=== PATIENT | male | born 1935 | race Caucasian/White ===

== ENCOUNTER 2017-04-05 15:38 | Inpatient (IN) | payer MEDICARE ==
[2017-04-05 16:15] LABS: CH 29.6; CHCM 33.3; HCT 50.3 % (39.0-53.0); HDW 2.49; MCH 30.1 pg (25.0-35.0); MCHC 33.7 g/dL (31.0-37.0); MCV 89.4 fL (80.0-100.0); Mean Platelet Volume 8.8; RBC 5.63 m/uL (4.30-5.90); RDW 13.8 % (11.5-15.5); WBC (Perox) 27.49
[2017-04-05 16:17] LABS: WBC 26.1 k/uL (3.8-10.6)
[2017-04-05 16:19] LABS: ALT 54 U/L (21-72); AST 30 U/L (17-59); Alkaline Phosphatase 138 U/L (38-126); Anion Gap 12 mmol/L; Blood Urea Nitrogen 31 mg/dL (9-20); Calcium 9.8 mg/dL (8.4-10.2); Carbon Dioxide 25 mmol/L (22-30); Chloride 102 mmol/L (98-107); Glucose 125 mg/dL (74-99); Non-African American GFR(MDRD) 53 (>60 ml/min/1.73 sqM); Potassium 4.7 mmol/L (3.5-5.1); Sodium 139 mmol/L (137-145); Total Protein 7.2 g/dL (6.3-8.2)
[2017-04-05 16:28] LABS: Prothrombin Time 10.2 sec (9.0-12.0)
[2017-04-05 16:30] LABS: Add Differential Manual Differential; Creatine Kinase 27 U/L (55-170)
[2017-04-05 16:31] LABS: Nucleated Red Blood Cells 0 /100 WBC (0-0); Polychromasia Present; Total Cells Counted 100
[2017-04-05 16:33] LABS: Partial Thromboplastin Time 21.6 sec (22.0-30.0)
--- NOTE | 2017-04-05 16:34 | ED ---
Weakness HPI - General Chief complaint: Weakness Stated complaint: Fall Time Seen by Provider: 04/05/17 15:38 Source: patient, EMS, RN notes reviewed, old records reviewed Mode of arrival: EMS - History of Present Illness Initial comments: This 82-year-old male who was brought in for evaluation for possible stroke he started having onset of symptoms at 1 AM this morning of left-sided weakness and some confusion. He. Did have a history of TIA or CVA in the past. He purely was on a commode and did fall he was helped to a chair by family members and was unable to get up by himself. Per paramedics he does demonstrate confusion some left upper lower extremity weakness mostly left lower extremity. No fevers chills nausea vomiting sweats no evidence of any physical trauma on examination. MD Complaint: generalized weakness - Related Data Home Medications Medication Instructions Recorded Confirmed Bisoprolol-Hctz 10-6.25 mg [Ziac 1 tab PO DAILY 01/25/14 04/05/17 10-6.25 MG] Clopidogrel [Plavix] 75 mg PO DAILY 01/25/14 04/05/17 amLODIPine BESYLATE/BENAZEPRIL 1 cap PO DAILY 01/25/14 04/05/17 [Lotrel 5-20 mg Capsule] Ranitidine HCl [Zantac] 150 mg PO DAILY 04/05/17 04/05/17 predniSONE 20 mg PO BID PRN 04/05/17 04/05/17 Allergies Allergy/AdvReac Type Severity Reaction Status Date / Time No Known Allergies Allergy Verified 04/05/17 16:27 Review of Systems ROS Statement: Those systems with pertinent positive or pertinent negative responses have been documented in the HPI. ROS Other: All systems not noted in ROS Statement are negative. Past Medical History Past Medical History: CVA/TIA, GERD/Reflux, Hypertension, Osteoarthritis (OA), Skin Disorder Additional Past Medical History / Comment(s): SOB with activity History of Any Multi-Drug Resistant Organisms: None Reported Additional Past Surgical History / Comment(s): hemorrhoidectomy, bilateral rotator cuff Past Anesthesia/Blood Transfusion Reactions: No Reported Reaction Past Psychological History: No Psychological Hx Reported Smoking Status: Former smoker General Exam - General Exam Comments Initial Comments: Is a well-developed well-nourished awake alert but confused male General appearance: alert, in no apparent distress Head exam: Present: atraumatic, normocephalic, normal inspection Eye exam: Present: normal appearance, PERRL, EOMI. Absent: scleral icterus, conjunctival injection, periorbital swelling ENT exam: Present: mucous membranes dry Neck exam: Present: normal inspection. Absent: tenderness, meningismus, lymphadenopathy Respiratory exam: Present: decreased breath sounds. Absent: respiratory distress, wheezes, rales, rhonchi, stridor Cardiovascular Exam: Present: regular rate, normal rhythm, normal heart sounds. Absent: systolic murmur, diastolic murmur, rubs, gallop, clicks GI/Abdominal exam: Present: soft, normal bowel sounds. Absent: distended, tenderness, guarding, rebound, rigid Extremities exam: Present: normal inspection, normal capillary refill. Absent: tenderness, pedal edema, joint swelling, calf tenderness Back exam: Present: normal inspection Neurological exam: Present: alert, altered, CN II-XII intact, motor sensory deficit Psychiatric exam: Present: flat affect Skin exam: Present: warm, dry, intact, normal color. Absent: rash Course Vital Signs 04/05/17 04/05/17 04/05/17 15:40 15:45 16:00 Temperature 101.0 F H Pulse Rate 96 100 94 Respiratory 19 20 19 Rate Blood Pressure 163/98 163/98 O2 Sat by Pulse 94 L 94 L 94 L Oximetry 04/05/17 04/05/17 04/05/17 16:15 16:30 16:45 Temperature Pulse Rate 90 88 86 Respiratory 20 20 17 Rate Blood Pressure 144/82 155/84 148/89 O2 Sat by Pulse 96 96 Oximetry 04/05/17 04/05/17 04/05/17 17:17 17:37 18:20 Temperature 99.4 F 98.7 F Pulse Rate 82 88 81 Respiratory 18 19 Rate Blood Pressure 148/85 155/84 152/75 O2 Sat by Pulse 96 95 Oximetry - Reevaluation(s) Reevaluation #1: 04/05/17 18:57 Reevaluation patient reveals no change. I did a long discussion with the patient's family regarding the findings patient is awake and alert. He's had no cough no dysuria the initial history was confirmed by family members. The symptoms this started around 1 AM this morning. EKG Findings - EKG Results: EKG: interpreted by ANGELICA, sinus rhythm (Sinus rhythm rate of 98 MD interval 150 to QRS 104 QT since QTC of 380/45 and complete right bundle-branch block pattern ) Medical Decision Making - Medical Decision Making I did discuss findings with the patient family. Patient will be admitted feeling place an IV antibiotics neurology consultation. I did discuss the case with the hospitalist Dr. Anna patient will be admitted with neurological consultation will be started on antibiotics additionally. - Lab Data Result diagrams: 04/05/17 15:55 04/05/17 15:55 Lab Results 04/05/17 04/05/17 04/05/17 Range/Units 15:55 15:55 15:55 WBC 26.1 H* (3.8-10.6) k/uL RBC 5.63 (4.30-5.90) m/uL Hgb 17.0 (13.0-17.5) gm/dL Hct 50.3 (39.0-53.0) % MCV 89.4 (80.0-100.0) fL MCH 30.1 (25.0-35.0) pg MCHC 33.7 (31.0-37.0) g/dL RDW 13.8 (11.5-15.5) % Plt Count 385 (150-450) k/uL Neutrophils % (Manual) 78.0 % Lymphocytes % (Manual) 4.0 % Monocytes % (Manual) 17.0 % Eosinophils % (Manual) 1.0 % Neutrophils # (Manual) 20.4 H (1.3-7.7) k/uL Lymphocytes # (Manual) 1.0 (1.0-4.8) k/uL Monocytes # (Manual) 4.4 H (0-1.0) k/uL Eosinophils # (Manual) 0.3 (0-0.7) k/uL Nucleated RBCs 0 (0-0) /100 WBC Polychromasia Present PT (9.0-12.0) sec INR (<1.2) APTT (22.0-30.0) sec Sodium 139 (137-145) mmol/L Potassium 4.7 (3.5-5.1) mmol/L Chloride 102 (98-107) mmol/L Carbon Dioxide 25 (22-30) mmol/L Anion Gap 12 mmol/L BUN 31 H (9-20) mg/dL Creatinine 1.30 H (0.66-1.25) mg/dL Est GFR (MDRD) Af Amer >60 (>60 ml/min/1.73 sqM) Est GFR (MDRD) Non-Af 53 (>60 ml/min/1.73 sqM) Glucose 125 H (74-99) mg/dL Calcium 9.8 (8.4-10.2) mg/dL Magnesium 2.0 (1.6-2.3) mg/dL Total Bilirubin 1.0 (0.2-1.3) mg/dL AST 30 (17-59) U/L ALT 54 (21-72) U/L Alkaline Phosphatase 138 H (38-126) U/L Total Creatine Kinase 27 L (55-170) U/L CK-MB (CK-2) 0.8 (0.0-2.4) ng/mL CK-MB (CK-2) Rel Index 3.0 Troponin I <0.012 (0.000-0.034) ng/mL Total Protein 7.2 (6.3-8.2) g/dL Albumin 4.3 (3.5-5.0) g/dL 04/05/17 Range/Units 15:55 WBC (3.8-10.6) k/uL RBC (4.30-5.90) m/uL Hgb (13.0-17.5) gm/dL Hct (39.0-53.0) % MCV (80.0-100.0) fL MCH (25.0-35.0) pg MCHC (31.0-37.0) g/dL RDW (11.5-15.5) % Plt Count (150-450) k/uL Neutrophils % (Manual) % Lymphocytes % (Manual) % Monocytes % (Manual) % Eosinophils % (Manual) % Neutrophils # (Manual) (1.3-7.7) k/uL Lymphocytes # (Manual) (1.0-4.8) k/uL Monocytes # (Manual) (0-1.0) k/uL Eosinophils # (Manual) (0-0.7) k/uL Nucleated RBCs (0-0) /100 WBC Polychromasia PT 10.2 (9.0-12.0) sec INR 1.0 (<1.2) APTT 21.6 L (22.0-30.0) sec Sodium (137-145) mmol/L Potassium (3.5-5.1) mmol/L Chloride (98-107) mmol/L Carbon Dioxide (22-30) mmol/L Anion Gap mmol/L BUN (9-20) mg/dL Creatinine (0.66-1.25) mg/dL Est GFR (MDRD) Af Amer (>60 ml/min/1.73 sqM) Est GFR (MDRD) Non-Af (>60 ml/min/1.73 sqM) Glucose (74-99) mg/dL Calcium (8.4-10.2) mg/dL Magnesium (1.6-2.3) mg/dL Total Bilirubin (0.2-1.3) mg/dL AST (17-59) U/L ALT (21-72) U/L Alkaline Phosphatase (38-126) U/L Total Creatine Kinase (55-170) U/L CK-MB (CK-2) (0.0-2.4) ng/mL CK-MB (CK-2) Rel Index Troponin I (0.000-0.034) ng/mL Total Protein (6.3-8.2) g/dL Albumin (3.5-5.0) g/dL - Radiology Data Radiology results: report reviewed (Review the imaging CAT scan shows no acute findings x-ray shows evidence of atelectasis versus infiltrate), image reviewed Critical Care Time Critical Care Time: Yes Critical Care Time: Critical care time includes 35 minutes which includes monitoring the EMS run and discussed with her. Review of old charting. History physical lab and x- rays on the patient. Review of findings with the patient family admission orders discussed with the hospitalist documentation of the above Disposition Clinical Impression: CVA (cerebral vascular accident), Pneumonia, Febrile illness Disposition: ADMITTED IP TO THIS [facility] Condition: Stable Referrals: Bryson Anderson MD [Primary Care Provider] - 1-2 days
[2017-04-05 16:43] LABS: Creatine Kinase MB 0.8 ng/mL (0.0-2.4); Troponin I <0.012 ng/mL (0.000-0.034)
--- NOTE | 2017-04-05 16:45 | XR ---
EXAMINATION TYPE: XR chest 2V DATE OF EXAM: 04/05/2017 COMPARISON: 08/17/2012 TECHNIQUE: PA and lateral views submitted. HISTORY: Altered mental status FINDINGS: No pneumothorax. Hypertrophic change of the spine seen. The heart is enlarged and there is arthropath y of the right shoulder. Subsegmental changes at both lung bases. IMPRESSION: 1. Cardiomegaly with basilar atelectasis favored over infiltrate. Correlate clinically..
--- NOTE | 2017-04-05 17:28 | CT ---
EXAMINATION TYPE: CT brain wo con DATE OF EXAM: 04/05/2017 COMPARISON: 08/17/2012 HISTORY: Fall yesterday. CT DLP: 1165.00 mGycm Automated exposure control for dose reduction was used. FINDINGS: There is no care, hemorrhage, mass, or mass effect or definite new attenuation defect. The previously seen 4 cm focal encephalomalacia in the upper right cerebellar hemisphere is redemonst rated, consistent with prior infarction in the vascular territory of the right superior cerebellar ar jamia. Skeletal structures and mastoid sinus air cells and middle ear cavities are negative. Visualized para nasal sinuses are clear. IMPRESSION: NO ACUTE PROCESS.
[2017-04-05 19:00] LABS: Appearance,Urine Clear (Clear); Bacteria,Urine Rare /hpf; Bilirubin,Urine Negative (Negative); Glucose,Urine (UA) Negative (Negative); Ketones,Urine Negative (Negative); Leukocyte Esterase,Urine Negative (Negative); Mucus,Urine Rare /hpf; Nitrite,Urine Negative (Negative); PH, Urine 5.5 (5.0-8.0); Particle Count 1376; Protein,Urine 1+ (Negative); RBC,Urine <1 /hpf (0-5); Specific Gravity,Urine 1.016 (1.001-1.035); Squamous Epithelial Cell,Urine <1 /hpf (0-4); UA Billing (MACRO vs. MICRO) MICRO; Urobilinogen,Urine <2.0 mg/dL (<2.0); WBC,Urine 2 /hpf (0-5)
[2017-04-05] MEDS ORDERED: AZITHROMYCIN 500 MG in SODIUM CHLORIDE 0.9% 250 ML IVPB STA (19:03)
[2017-04-05] MEDS ORDERED: predniSONE 20 MG TAB PO PRN (19:03)
[2017-04-05] MEDS: ASPIRIN 325 MG TAB PO SCH (19:45)
[2017-04-05] MEDS ORDERED: FAMOTIDINE 20 MG TAB PO SCH (21:00)
--- NOTE | 2017-04-05 22:15 | US ---
EXAMINATION TYPE: US carotid duplex BILAT DATE OF EXAM: 04/05/2017 COMPARISON: NONE CLINICAL HISTORY: Stenosis. fall yesterday, unable to walk today, h/o TIA and stroke in 2009, patient scanned in ER EXAM MEASUREMENTS: RIGHT: Peak Systolic Velocity (PSV) cm/sec ----- Right CCA: 43.5 ----- Right ICA: 60.1 ----- Right ECA: 110.4 ICA/CCA ratio: 1.4 RIGHT: End Diastole cm/sec ----- Right CCA: 8.6 ----- Right ICA: 13.0 ----- Right ECA: 8.2 LEFT: Peak Systolic Velocity (PSV) cm/sec ----- Left CCA: 75.5 ----- Left ICA: 44.2 ----- Left ECA: 82.8 ICA/CCA ratio: 0.6 LEFT: End Diastole cm/sec ----- Left CCA: 14.2 ----- Left ICA: 13.5 ----- Left ECA: 8.0 VERTEBRALS (direction of flow): Right Vertebral: Antegrade Left Vertebral: Antegrade IMPRESSION: 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
[2017-04-05] MEDS: SODIUM CHLORIDE 0.9% 1,000 ML IV SCH (23:36)
[2017-04-06] MEDS: SODIUM CHLORIDE 0.9% 1,000 ML IV SCH ×2 (06:19→18:17)
[2017-04-06 07:28] LABS: Cholesterol 148 mg/dL (<200); HDL Cholesterol 63 mg/dL (40-60); Triglycerides 59 mg/dL (<150)
[2017-04-06] MEDS: LISINOPRIL 20 MG TAB PO SCH (08:03)
[2017-04-06] MEDS: BISOPROLOL-HCTZ 10-6.25 MG 1 EACH TAB PO SCH (08:03)
[2017-04-06] MEDS: FAMOTIDINE 20 MG TAB PO SCH (08:03)
[2017-04-06] MEDS: ASPIRIN 325 MG TAB PO SCH (08:03)
[2017-04-06] MEDS: CLOPIDOGREL 75 MG TAB PO SCH (08:03)
[2017-04-06] MEDS: amLODIPine 5 MG TAB PO SCH (08:04)
--- NOTE | 2017-04-06 12:39 | XR ---
EXAMINATION TYPE: XR Hip Complete LT DATE OF EXAM: 04/06/2017 CLINICAL HISTORY: Increasing left hip pain. Recent falls per order. TECHNIQUE: AP and frogleg views of the left hip are attempted. COMPARISON: None. FINDINGS: There is acute displaced subcapital fracture left proximal femur. Slight impaction of dist al fracture fragment is seen. There is mild to moderate axial joint space loss without joint dislocat ion. Osseous structures are somewhat demineralized. Vascular calcification left distal groin region i s seen.. IMPRESSION: There is age indeterminate but suspected acute subcapital fracture left proximal femur. (Initial encounter closed type post traumatic fracture) Results of the study communicated to patient's nurse Yesica via telephone at time of dictation.
--- NOTE | 2017-04-06 12:44 | US ---
EXAMINATION TYPE: US venous doppler duplex LE LT DATE OF EXAM: 04/06/2017 12:31 PM COMPARISON: Left leg ultrasound August 25, 2013 CLINICAL HISTORY: Unilateral swelling. Left leg swelling SIDE PERFORMED: Left TECHNIQUE: The lower extremity deep venous system is examined utilizing real time linear array sonog kayleigh with graded compression, doppler sonography and color-flow sonography. VESSELS IMAGED: External Iliac Vein (EIV) Common Femoral Vein Deep Femoral Vein Greater Saphenous Vein * Femoral Vein Popliteal Vein Small Saphenous Vein * Proximal Calf Veins (* superficial vessels) Left Leg: Negative for DVT Grayscale, color doppler, spectral doppler imaging performed of the deep veins of the left lower ext remity. There is normal flow, compressibility, vascular waveforms of the left lower extremity. IMPRESSION: No ultrasound evidence for acute DVT in the left lower extremity.
--- NOTE | 2017-04-06 16:49 | P.CNOR ---
History of Present Illness - HPI Consult date: 04/06/17 History of present illness: This is an 82-year-old male who is admitted for CVA. Orthopedics is consulted to evaluate left hip fracture. Patient is a poor historian and unable to answer questions regarding his injury. No family is present in the room. According to the ER note he had a fall this morning after being put on a commode and had to be helped up to a chair by his family. Patient also developed left-sided weakness early this morning. Patient was brought to the via EMS. Patient complains of pain to the left hip. Patient does not appear to have any ankle pain, neck pain or upper extremity pain. Patient states that he still has sensation to bilateral lower extremities, however patient does seem confused. Review of Systems See HPI. 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, hearing loss, and memory impairment, very dry skin History of Any Multi-Drug Resistant Organisms: None Reported Additional Past Surgical History / Comment(s): hemorrhoidectomy, bilateral rotator cuff Past Anesthesia/Blood Transfusion Reactions: No Reported Reaction Past Psychological History: No Psychological Hx Reported Smoking Status: Former smoker - Past Family History Sister(s) Family Medical History: CVA/TIA Medications and Allergies Home Medications Medication Instructions Recorded Confirmed Type Bisoprolol-Hctz 10-6.25 mg [Ziac 1 tab PO DAILY 01/25/14 04/05/17 History 10-6.25 MG] Clopidogrel [Plavix] 75 mg PO DAILY 01/25/14 04/05/17 History amLODIPine BESYLATE/BENAZEPRIL 1 cap PO DAILY 01/25/14 04/05/17 History [Lotrel 5-20 mg Capsule] Ranitidine HCl [Zantac] 150 mg PO DAILY 04/05/17 04/05/17 History predniSONE 20 mg PO BID PRN 04/05/17 04/05/17 History Allergies Allergy/AdvReac Type Severity Reaction Status Date / Time No Known Allergies Allergy Verified 04/05/17 16:27 Physical Examination Patient is in no acute distress. Patient is alert and oriented 1. Patient is able to state his name. On inspection the left lower extremity is shortened and externally rotated. There is tenderness to palpation over the left hip. There is some mild tenderness in the area of the left knee as well, but no swelling or ecchymosis. There is a small abrasion to the left knee. There is no apparent tenderness of the left ankle or foot. Patient has good foot and ankle motion. Dorsalis pedis pulses are 1+ bilaterally. There is 1+ pitting edema to the left lower extremity. Calf is soft and nontender. Sensation appears to be intact. There is no apparent tenderness to palpation of the cervical midline, bilateral shoulders or bilateral upper extremities. No tenderness to palpation of the right lower extremity. Results X-rays of the left hip are reviewed showing acute displaced subcapital fracture of the proximal femur. X-rays of the left knee are pending. - Labs Labs: Abnormal Lab Results - Last 24 Hours (Table) 04/05/17 04/05/17 04/06/17 Range/Units 15:55 18:45 06:11 APTT 21.6 L (22.0-30.0) sec HDL Cholesterol 63 H (40-60) mg/dL Urine Protein 1+ H (Negative) Urine Bacteria Rare H (None) /hpf Hyaline Casts 5 H (0-2) /lpf Urine Mucus Rare H (None) /hpf H & H 04/05/17 Range/Units 15:55 Hgb 17.0 (13.0-17.5) gm/dL Hct 50.3 (39.0-53.0) % Coagulation 04/05/17 Range/Units 15:55 INR 1.0 (<1.2) Result Diagrams: 04/05/17 15:55 04/05/17 15:55 Assessment and Plan (1) Closed left hip fracture Status: Acute Plan: #1. Continue pain control and nonweightbearing status. #2. Obtain consent for possible surgical intervention on Saturday, pending medical clearance. #3. Will continue to follow the patient closely.
--- NOTE | 2017-04-06 17:34 | XR ---
EXAMINATION TYPE: XR knee complete LT DATE OF EXAM: 04/06/2017 CLINICAL HISTORY: Left knee pain TECHNIQUE: Portable Three views of the left knee are obtained. COMPARISON: None. FINDINGS: There is no acute fracture/dislocation evident in left knee. Mild joint space loss patello femoral compartment is seen. Osseous structures are demineralized. Prominent posterior vascular calci fication is noted. IMPRESSION: There is demineralization with mild joint space loss patellofemoral compartment.
[2017-04-06 21:12] LABS: Glucose,Whole Blood 102 mg/dL (75-99)
--- NOTE | 2017-04-06 21:30 | P.CNNES ---
History of Present Illness Consult date: 04/05/17 Requesting physician: Ben Gauthier Reason for Consult: CVA Chief complaint: CVA- Lower extremity weakness History of Present Illness: Patient is an 82-year-old male being consult on by neurology for possible stroke. Patient began having strokelike symptoms at 1 AM on 04/05/17 with left- sided weakness and some confusion. History of TIA or CVA in the past. Patient is on a commode and help to chair by family members and was unable to get up by himself. Per paramedics he does demonstrate confusion and some left upper upper and lower extremity weakness mostly left lower extremity. No fevers, chills, nausea, vomiting, sweats or evidence of physical trauma on examination. Patient is noted to have a hip fracture for greater than 1 week. Weakness in the lower extremities described as bilateral. Chest x-ray notes atelectasis and basilar areas. Carotid Doppler notes no significant stenosis. Patient's lipid panel notes LDL at 73slightly elevated. Patient is currently on Plavix as well as aspirin. Patient is supine in bed, well developed, well nourished, awake, alert but confused. Patient is in no acute distress. Review of Systems Systems not noted in HPI or negative. 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, hearing loss, and memory impairment, very dry skin History of Any Multi-Drug Resistant Organisms: None Reported Additional Past Surgical History / Comment(s): hemorrhoidectomy, bilateral rotator cuff Past Anesthesia/Blood Transfusion Reactions: No Reported Reaction Past Psychological History: No Psychological Hx Reported Smoking Status: Former smoker - Past Family History Sister(s) Family Medical History: CVA/TIA Medications and Allergies Home Medications Medication Instructions Recorded Confirmed Type Bisoprolol-Hctz 10-6.25 mg [Ziac 1 tab PO DAILY 01/25/14 04/05/17 History 10-6.25 MG] Clopidogrel [Plavix] 75 mg PO DAILY 01/25/14 04/05/17 History amLODIPine BESYLATE/BENAZEPRIL 1 cap PO DAILY 01/25/14 04/05/17 History [Lotrel 5-20 mg Capsule] Ranitidine HCl [Zantac] 150 mg PO DAILY 04/05/17 04/05/17 History predniSONE 20 mg PO BID PRN 04/05/17 04/05/17 History Allergies Allergy/AdvReac Type Severity Reaction Status Date / Time No Known Allergies Allergy Verified 04/05/17 16:27 Physical Examination - Vital Signs Vital Signs: Vital Signs Temp Pulse Resp BP Pulse Ox 04/06/17 20:00 100.0 F H 101 H 18 161/84 96 04/06/17 16:00 85 18 167/85 95 04/06/17 12:00 97.6 F 79 16 155/70 92 L 04/06/17 08:00 96.5 F L 86 18 162/76 93 L 04/06/17 04:00 97.0 F L 62 18 155/74 96 04/06/17 00:00 98.0 F 76 18 153/90 96 Intake and Output 04/06/17 04/06/17 04/06/17 06:59 14:59 22:59 Intake Total 700 200 Output Total 400 Balance 300 200 Intake: IV 700 Sodium Chloride 0.9% 1, 700 000 ml @ 100 mls/hr IV . Q10H GLENNA Rx#:[id number] Oral 200 Output: Urine 400 Other: # Voids 1 2 2 Weight 43.5 kg 43.5 kg Patient Weight 04/07/17 06:59 Weight 43.5 kg Constitutional: AOx1, cooperative HEENT: NC/AT, no facial asymmetry is seen. Throat: Supple, no masses Respiratory: No increased work of breathing Cardiac: Regular rate and Rhythm GI: non tender, non distended Musculoskeletal: Bilateral lower extremity weakness: 2 out of 5, noted hip fracture on imaging with tenderness to touch and palpation as well as with movement. Neurological: CN II-XII in tact, patient was AOx1, aphasia, motor and sensory deficit Integementary: no rash, no erythema Psychiatric: flat affect Results - Laboratory Findings CBC and BMP: 04/05/17 15:55 04/05/17 15:55 Abnormal Lab Findings: Abnormal Labs 04/05/17 04/05/17 04/05/17 15:55 15:55 15:55 WBC 26.1 H* Neutrophils # (Manual) 20.4 H Monocytes # (Manual) 4.4 H APTT BUN 31 H Creatinine 1.30 H Glucose 125 H POC Glucose (mg/dL) Alkaline Phosphatase 138 H Total Creatine Kinase 27 L HDL Cholesterol Urine Protein Urine Bacteria Hyaline Casts Urine Mucus 04/05/17 04/05/17 04/06/17 15:55 18:45 06:11 WBC Neutrophils # (Manual) Monocytes # (Manual) APTT 21.6 L BUN Creatinine Glucose POC Glucose (mg/dL) Alkaline Phosphatase Total Creatine Kinase HDL Cholesterol 63 H Urine Protein 1+ H Urine Bacteria Rare H Hyaline Casts 5 H Urine Mucus Rare H 04/06/17 21:09 WBC Neutrophils # (Manual) Monocytes # (Manual) APTT BUN Creatinine Glucose POC Glucose (mg/dL) 102 H Alkaline Phosphatase Total Creatine Kinase HDL Cholesterol Urine Protein Urine Bacteria Hyaline Casts Urine Mucus Assessment and Plan (1) CVA (cerebral vascular accident) Status: Acute (2) Closed left hip fracture Status: Acute (3) Pneumonia Status: Acute Plan: Patient's current status does not appear to be related to CVA. Patient's current status is more likely related to his concurrent pneumonia and generalized weakness secondary to fracture/Orthopedic injury. Patient does have residual deficits from prior CVA which are consistent with his current status. Orthopedics has already consulted with pending possible surgical intervention for Saturday. Patient was placed on Lipitor 10 mg by mouth daily at bedtime to treat his slightly elevated LDL to maintain goal of below 70. Patient is currently above 70. Plavix was previously prescribed and on his medication list , defer ongoing use of Plavix And aspirin use to orthopedics given they're pending possible surgical status. Status: Neurology will continue to follow on an as-needed basis. If the patient is discharged, please notify the patient to contact our office within 48 hours for a follow-up within 14 days. I discussed the patient's pertinent medical information with Dr. Avitia. He agrees with the plan of care as implemented.
[2017-04-07] MEDS ORDERED: IPRATROPIUM-ALBUTEROL 3 ML NEB INHALATION STA (02:37)
[2017-04-07] MEDS: FUROSEMIDE 10 MG/ML 4 ML VIAL ONE ×2 (02:57→03:40)
[2017-04-07] MEDS ORDERED: ONDANSETRON 4 MG/2 ML VIAL IVP PRN (02:59)
[2017-04-07] MEDS ORDERED: HYDROcodone/APAP 5-325MG 1 EACH TAB PO PRN (03:00)
[2017-04-07] MEDS: SODIUM CHLORIDE 0.9% 1,000 ML IV SCH ×2 (03:40→09:37)
[2017-04-07] MEDS: IPRATROPIUM-ALBUTEROL 3 ML NEB INHALATION SCH ×7 (04:17→22:37)
[2017-04-07] MEDS ORDERED: SODIUM CHLORIDE 0.9% 1,000 ML IV SCH (04:45)
[2017-04-07] MEDS ORDERED: ACETAMINOPHEN IV (For NPO) 1,000 MG in EMPTY BAG 1 BAG IVPB ONE (05:22)
[2017-04-07 05:41] LABS: Glucose,Whole Blood 139 mg/dL (75-99)
[2017-04-07 05:48] LABS: ABG HCO3 18 mmol/L (21-25); ABG PCO2 24 mmHg (35-45); ABG PH 7.49 (7.35-7.45); ABG PO2 75 mmHg (83-108); ABG TCO2 19 mmol/L (19-24)
[2017-04-07 06:03] LABS: Basophils # (A) 0.1 k/uL (0-0.2); Basophils % (A) 0 %; CH 29.6; CHCM 31.6; Eosinophils % (A) 0 %; HCT 49.9 % (39.0-53.0); HGB 15.9 gm/dL (13.0-17.5); Luc # (Auto) 0.39; Luc % (Auto) 1; Lymphocytes % (A) 5 %; MCH 30.1 pg (25.0-35.0); MCHC 31.9 g/dL (31.0-37.0); MCV 94.2 fL (80.0-100.0); Mean Platelet Volume 9.3; Monocytes # (A) 2.6 k/uL (0-1.0); Monocytes % (A) 7 %; Neutrophils # (A) 32.2 k/uL (1.3-7.7); Neutrophils % (A) 86 %; RDW 13.8 % (11.5-15.5); WBC (Perox) 36.06
[2017-04-07 06:07] LABS: Anion Gap 16 mmol/L; Blood Urea Nitrogen 34 mg/dL (9-20); Calcium 8.8 mg/dL (8.4-10.2); Carbon Dioxide 16 mmol/L (22-30); Chloride 102 mmol/L (98-107); Glucose 158 mg/dL (74-99); Non-African American GFR(MDRD) 53 (>60 ml/min/1.73 sqM); Potassium 5.3 mmol/L (3.5-5.1); Sodium 134 mmol/L (137-145); WBC 37.3 k/uL (3.8-10.6)
--- NOTE | 2017-04-07 06:07 | XR ---
EXAM: XR Abdomen Complete, 2 or More Views CLINICAL HISTORY: Reason: vomiting, abd distention TECHNIQUE: Frontal view of the abdomen/pelvis with upright view of the abdomen. COMPARISON: None. FINDINGS: Intraperitoneal space: No free air. Gastrointestinal tract: Air-filled dilated small bowel loop is seen overlying the upper mid abdomen, measuring up to 5.6 cm diameter. Findings are concerning for small bowel obstruction. Bones/joints: Findings concerning for a left femoral neck fracture. IMPRESSION: 1. Air-filled dilated small left bowel loop overlying the upper mid abdomen, measuring up to 5.6 cm diameter. Findings are concerning for small bowel obstruction. CT of the abdomen/pelvis with IV and oral contrast recommended for further evaluation. 2. Findings concerning for a left femoral neck fracture. Clinical correlation recommended. Radiographs of the left hip may be obtained for further evaluation, if clinically indicated.
[2017-04-07 06:19] LABS: Glucose,Whole Blood 145 mg/dL (75-99)
--- NOTE | 2017-04-07 06:19 | XR ---
EXAM: XR Chest, 1 View CLINICAL HISTORY: Reason: Resp distress TECHNIQUE: Frontal view of the chest. COMPARISON: Radiographic the chest dated 04/05/2017 FINDINGS: Lungs: Left basilar atelectasis and/or infiltrates likely present, more conspicuous on this study in the prior. Right basilar atelectasis is mostly unchanged. Pleural space: Unremarkable. No pneumothorax. Heart: The heart is again noted to be mildly enlarged. Mediastinum: Unremarkable. Bones/joints: Mild degenerative changes seen. Vasculature: Mildly tortuous descending thoracic aorta. IMPRESSION: Left basilar atelectasis and/or infiltrates likely present, more conspicuous on this study in the prior.
[2017-04-07] MEDS ORDERED: VANCOMYCIN TROUGH DUE 1 EACH MISC MISCELLANE STA (06:20)
[2017-04-07] MEDS ORDERED: PIPERACILLIN-TAZOBACTAM 3.375 GM in DEXTROSE/WATER 1 50ML.BAG IVPB STA (06:24)
[2017-04-07] MEDS ORDERED: RX INFO: IV CONTRAST WAS GIVEN 1 EACH MISC MISCELLANE PRN (06:24)
[2017-04-07] MEDS ORDERED: VANCOMYCIN 1,250 MG in SODIUM CHLORIDE 0.9% 250 ML IVPB STA (06:31)
[2017-04-07] MEDS ORDERED: IV VANCOMYCIN PER PHARMACY 1 EACH MISC MISCELLANE PRN (06:32)
[2017-04-07 07:12] LABS: Large Platelets Present
[2017-04-07 07:17] LABS: Manual Review Performed
[2017-04-07 07:45] LABS: Glucose,Whole Blood 148 mg/dL (75-99)
[2017-04-07 08:05] LABS: Amorphous Sediment,Urine Occasional /hpf; Appearance,Urine Cloudy (Clear); Bilirubin,Urine Negative (Negative); Glucose,Urine (UA) Negative (Negative); Ketones,Urine Negative (Negative); Leukocyte Esterase,Urine Negative (Negative); Mucus,Urine Rare /hpf; Nitrite,Urine Negative (Negative); Particle Count 12743; Protein,Urine 1+ (Negative); Squamous Epithelial Cell,Urine <1 /hpf (0-4); UA Billing (MACRO vs. MICRO) MICRO; Urobilinogen,Urine <2.0 mg/dL (<2.0); WBC,Urine <1 /hpf (0-5)
[2017-04-07] MEDS: FAMOTIDINE 20 MG TAB PO SCH (08:12)
[2017-04-07] MEDS: BISOPROLOL-HCTZ 10-6.25 MG 1 EACH TAB PO SCH (08:12)
[2017-04-07] MEDS: LISINOPRIL 20 MG TAB PO SCH (08:12)
[2017-04-07] MEDS: ASPIRIN 325 MG TAB PO SCH (08:13)
[2017-04-07] MEDS: amLODIPine 5 MG TAB PO SCH (08:13)
--- NOTE | 2017-04-07 09:06 | P.PN ---
Subjective Principal diagnosis: Left hip fracture This is an 82-year-old male admitted for pneumonia, left hip fracture and possible CVA. Today patient is unable to answer questions as he is receiving breathing treatments and resting. Patient was transferred to the ICU today. Patient opens his eyes in response to examination of the left lower extremity. Objective - Vital Signs Vital signs: Vital Signs Temp 98.4 F 04/07/17 07:57 Pulse 128 H 04/07/17 08:37 Resp 16 04/07/17 08:00 BP 175/86 04/07/17 08:00 Pulse Ox 100 04/07/17 08:00 Intake & Output 04/06/17 04/07/17 04/07/17 18:59 06:59 18:59 Intake Total 200 1137.5 Output Total 56 95 Balance 200 -56 1042.5 Weight 43.5 kg 55.1 kg Intake: Intake, IV Titration 1137.5 Amount Piperacillin-Tazobactam 3 12.5 .375 gm In Dextrose/Water 1 50ml.bag @ 12.5 mls/hr IVPB ONCE [facility] Rx#: [id number] Sodium Chloride 0.9% 500 1000 ml @ 1000 mls/hr IV Q35M [facility] Rx#:[id number] Vancomycin 1,000 mg In 125 Sodium Chloride 0.9% 250 ml @ 125 mls/hr IVPB Q16H [facility] Rx#:[id number] Oral 200 Output: Urine 1 95 Stool 5 Emesis 50 Other: Voiding Method Diaper # Voids 2 5 # Emeses 1 - Exam During exam patient is receiving breathing treatments and was only responsive by opening his eyes to examination of the left extremity. On inspection, the left lower extremity is shortened and externally rotated. Calf is soft. Dorsalis pedis pulses are 1+ bilaterally. Neurovascular status intact. X-ray of the left knee was reviewed showing no acute fracture dislocation. Moderate arthritic changes noted. - Labs CBC & Chem 7: 04/07/17 05:38 04/07/17 05:38 Labs: Abnormal Lab Results - Last 24 Hours (Table) 04/06/17 04/07/17 04/07/17 Range/Units 21:09 05:21 05:38 WBC (3.8-10.6) k/uL Neutrophils # (1.3-7.7) k/uL Monocytes # (0-1.0) k/uL ABG pH (7.35-7.45) ABG pCO2 (35-45) mmHg ABG pO2 (83-108) mmHg ABG HCO3 (21-25) mmol/L Sodium (137-145) mmol/L Potassium (3.5-5.1) mmol/L Carbon Dioxide (22-30) mmol/L BUN (9-20) mg/dL Creatinine (0.66-1.25) mg/dL Glucose (74-99) mg/dL POC Glucose (mg/dL) 102 H 139 H (75-99) mg/dL Plasma Lactic Acid Froy 4.8 H* (0.7-2.0) mmol/L Urine Protein (Negative) Amorphous Sediment (None) /hpf Hyaline Casts (0-2) /lpf Urine Mucus (None) /hpf 04/07/17 04/07/17 04/07/17 Range/Units 05:38 05:38 05:44 WBC 37.3 H* (3.8-10.6) k/uL Neutrophils # 32.2 H (1.3-7.7) k/uL Monocytes # 2.6 H (0-1.0) k/uL ABG pH 7.49 H (7.35-7.45) ABG pCO2 24 L (35-45) mmHg ABG pO2 75 L (83-108) mmHg ABG HCO3 18 L (21-25) mmol/L Sodium 134 L (137-145) mmol/L Potassium 5.3 H (3.5-5.1) mmol/L Carbon Dioxide 16 L (22-30) mmol/L BUN 34 H (9-20) mg/dL Creatinine 1.30 H (0.66-1.25) mg/dL Glucose 158 H (74-99) mg/dL POC Glucose (mg/dL) (75-99) mg/dL Plasma Lactic Acid Froy (0.7-2.0) mmol/L Urine Protein (Negative) Amorphous Sediment (None) /hpf Hyaline Casts (0-2) /lpf Urine Mucus (None) /hpf 04/07/17 04/07/17 04/07/17 Range/Units 06:17 07:30 07:44 WBC (3.8-10.6) k/uL Neutrophils # (1.3-7.7) k/uL Monocytes # (0-1.0) k/uL ABG pH (7.35-7.45) ABG pCO2 (35-45) mmHg ABG pO2 (83-108) mmHg ABG HCO3 (21-25) mmol/L Sodium (137-145) mmol/L Potassium (3.5-5.1) mmol/L Carbon Dioxide (22-30) mmol/L BUN (9-20) mg/dL Creatinine (0.66-1.25) mg/dL Glucose (74-99) mg/dL POC Glucose (mg/dL) 145 H 148 H (75-99) mg/dL Plasma Lactic Acid Froy (0.7-2.0) mmol/L Urine Protein 1+ H (Negative) Amorphous Sediment Occasional H (None) /hpf Hyaline Casts 3 H (0-2) /lpf Urine Mucus Rare H (None) /hpf Microbiology - Last 24 Hours (Table) 04/05/17 15:55 Blood Culture - Preliminary Blood No Growth after 24 hours Assessment and Plan (1) Closed left hip fracture Status: Acute Plan: #1. Continue pain control and nonweightbearing status. #2. Bilateral lower extremities. #3. Left hemiarthroplasty scheduled for Saturday, medical clearance pending. #4. Will continue to follow the patient closely.
[2017-04-07] MEDS ORDERED: HYDROmorphone 1 MG/ML 1 ML SYRINGE IVP PRN (09:30)
[2017-04-07] MEDS: HEPARIN SODIUM,PORCINE 5,000 UNIT/ML 1 ML VIAL SQ SCH ×2 (09:37→18:05)
[2017-04-07] MEDS: PANTOPRAZOLE 40 MG/10 ML VIAL IV SCH (09:37)
[2017-04-07] MEDS: SODIUM CHLORIDE 0.9% 500 ML IV SCH ×3 (09:38→12:49)
[2017-04-07] MEDS: CLOPIDOGREL 75 MG TAB PO SCH (09:38)
--- NOTE | 2017-04-07 09:41 | CT ---
EXAMINATION TYPE: CT abdomen pelvis wo con DATE OF EXAM: 04/07/2017 HISTORY: Abdominal pain with nausea and vomiting for one day. CT DLP: 534.6 mGycm. Automated Exposure Control for Dose Reduction was Utilized. TECHNIQUE: CT scan of the abdomen and pelvis is performed without oral or IV contrast. COMPARISON: Abdominal x-ray earlier today. Left hip x-ray yesterday. CT abdomen pelvis April 12, 2010. FINDINGS: Within the limitations of a non-contrast study, the following observations are made. LUNG BASES: There is dependent and patchy bibasilar linear atelectasis. LIVER/GB: Liver is diffusely low dense consistent with fatty infiltration. Liver is somewhat small in size which is more prominent versus prior study, slightly lobulated peripheral margins are seen. Cli nical correlation for cirrhosis advised. There is stone filled somewhat contracted gallbladder. No suspicious biliary dilatation is seen. PANCREAS: No significant abnormality is seen. SPLEEN: No significant abnormality is seen. ADRENALS: No significant abnormality is seen. KIDNEYS: There is some cortical thinning and mild perinephric fat stranding in both kidneys, most lik cecilio on basis of product of chronic medical renal disease. There is 3.2 cm simple appearing cyst lower pole level left kidney slightly larger versus prior CT. There is Granados catheter seen within decompre ssed bladder which is thus suboptimally evaluated. There is redemonstration of prominent posterior re troperitoneal fat occupying well over 50% of the intra-abdominal space with mass effect on bowel eli ated anteriorly. BOWEL: There is nasogastric tube coiled in stomach. There is decompressed stomach seen. There is no s uspicious dilatation of duodenal sweep or small bowel loops. Fecal material is seen in nondistended c olon GENITAL ORGANS: Prostate gland is heterogeneous in appearance and slightly enlarged in size, underlyi ng BPH is suspected, clinical correlation advised. Scattered pelvic phleboliths are seen. LYMPH NODES: No greater than 1cm abdominal or pelvic lymph nodes are appreciated. OSSEOUS STRUCTURES: There is mild height loss and sclerosis superior T12 vertebra felt to reflect sub acute or chronic compression fracture. There is demineralization present. There is acute impacted fra cture proximal femur transcervical level of femoral left neck noted. OTHER: There is asymmetric heterogeneous enlargement of right iliopsoas muscle suggestive of intramus cular hematoma.. IMPRESSION: 1. Nasogastric tube coiled in decompressed stomach. No bowel obstruction is seen. 2. Acute impacted fracture proximal left femur is confirmed transcervical level of femoral neck. 3. Small somewhat lobulated hypodense liver, clinical correlation advised to rule out cirrhosis. 4. Small right-sided iliopsoas intramuscular hematoma. Clinical and hemoglobin monitoring is advised. 5. Redemonstration of prominent retroperitoneal lipomatosis with local mass effect. 6. Stone filled somewhat contracted gallbladder without CT evidence for acute cholecystitis.
[2017-04-07 10:12] LABS: INR 1.2 (<1.2); Partial Thromboplastin Time 24.1 sec (22.0-30.0); Prothrombin Time 11.5 sec (9.0-12.0)
[2017-04-07 10:39] LABS: Creatine Kinase MB 1.7 ng/mL (0.0-2.4); Troponin I 0.042 ng/mL (0.000-0.034)
[2017-04-07] MEDS ORDERED: SODIUM CHLORIDE 0.9% 1,000 ML IV ONE ×2 (10:39→11:20)
[2017-04-07] MEDS: HYDROCORTISONE SUCCINATE 100 MG/2 ML VIAL IV SCH ×2 (11:07→17:07)
[2017-04-07 12:22] LABS: Glucose,Whole Blood 183 mg/dL (75-99)
--- NOTE | 2017-04-07 12:44 | P.HPIM ---
History of Present Illness H&P Date: 04/06/17 Chief Complaint: Left lower extremity weakness Mr. Hill is an 82-year-old male with a past medical history of stroke and right-sided weakness, GERD, hypertension, osteoarthritis and psoriasis brought in by his for the chief complaint of weakness of the left lower extremity. The patient is a poor historian. Patient had a stroke in 2009 with right- sided weakness and dysarthria that have been progressively worsened. Patient's takes care of him at home. She states that on patient was trying to go into the kitchen and then he turned and he fell onto the floor and could not get up. She then help him to get to the bed and since then he is unable to move out of the bed. Patient does not have any complaints of headache, no new changes in his speech. He states he is not able to move his left lower extremity due to pain in the hip joint. Patient denies having any difficulty in breathing, palpitations, chest pain. Patient denies having any urinary tract symptoms. No reported fevers. No recent hospitalizations. Patient has right-sided weakness since having a stroke in 2009. For the past couple of days patient is not able to get out of the bed and his has been helping him out. They think he might be having another stroke and so brought him to the hospital for further evaluation. He follows with Dr. Anderson who is his PCP. Most of the history is obtained from the was at the bedside and also son who is at the bedside. Review of Systems REVIEW OF SYSTEMS: PSYCH: Normal psychiatric exam NEURO: No facial droop, No speech abnormalities. Right-sided upper and lower extremity weakness after the stroke VASCULAR: Peripheral nervous system within the normal limits no edema. HEMATOLOGIC: No history of easy bleeding and bruising . No recent infections . RESPIRATORY: No cough, No SOB, No chest discomfort. IMMUNE: No infections INTEGUMENT: no rashes OPHTHALMOLOGIC: No blurry vision and no eye discharge. : No dysuria or hematuria CARDIAC: No chest pain , shortness of breath , paroxysmal nocturnal dyspnea MUSCULOSKELETAL : Unable to move his left lower extremity. GI: No abdominal pain, Nausea or vomiting. No constipation or diarrhea. All 13 review of systems are done and negative except for the ones mentioned above. 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, hearing loss, and memory impairment, very dry skin History of Any Multi-Drug Resistant Organisms: None Reported Additional Past Surgical History / Comment(s): hemorrhoidectomy, bilateral rotator cuff Past Anesthesia/Blood Transfusion Reactions: No Reported Reaction Past Psychological History: No Psychological Hx Reported Smoking Status: Former smoker - Past Family History Sister(s) Family Medical History: CVA/TIA Medications and Allergies Home Medications Medication Instructions Recorded Confirmed Type Bisoprolol-Hctz 10-6.25 mg [Ziac 1 tab PO DAILY 01/25/14 04/05/17 History 10-6.25 MG] Clopidogrel [Plavix] 75 mg PO DAILY 01/25/14 04/05/17 History amLODIPine BESYLATE/BENAZEPRIL 1 cap PO DAILY 01/25/14 04/05/17 History [Lotrel 5-20 mg Capsule] Ranitidine HCl [Zantac] 150 mg PO DAILY 04/05/17 04/05/17 History predniSONE 20 mg PO BID PRN 04/05/17 04/05/17 History Allergies Allergy/AdvReac Type Severity Reaction Status Date / Time No Known Allergies Allergy Verified 04/05/17 16:27 Physical Exam Vitals: Vital Signs Temp Pulse Pulse Resp BP BP Pulse Ox 04/06/17 12:00 97.6 F 79 16 155/70 92 L 04/06/17 08:00 96.5 F L 86 18 162/76 93 L 04/06/17 04:00 97.0 F L 62 18 155/74 96 04/06/17 00:00 98.0 F 76 18 153/90 96 04/05/17 20:00 98.8 F 82 18 134/83 94 L 04/05/17 19:40 98.8 F 82 18 134/83 94 L 04/05/17 18:20 98.7 F 81 19 152/75 95 04/05/17 17:37 88 155/84 04/05/17 17:17 99.4 F 82 18 148/85 96 04/05/17 16:45 86 17 148/89 96 04/05/17 16:30 88 20 155/84 04/05/17 16:15 90 20 144/82 96 04/05/17 16:00 94 19 94 L 04/05/17 15:45 100 20 163/98 94 L 04/05/17 15:40 101.0 F H 96 19 163/98 94 L Intake and Output 04/05/17 04/06/17 04/06/17 22:59 06:59 14:59 Intake Total 700 Output Total 400 Balance 300 Intake: IV 700 Sodium Chloride 0.9% 1, 700 000 ml @ 100 mls/hr IV . Q10H [facility] Rx#:[id number] Output: Urine 400 Other: # Voids 0 1 Weight 81.647 kg 43.5 kg 43.5 kg Patient Weight 04/07/17 06:59 Weight 43.5 kg GENERAL EXAM GEN. APPEARANCE: alert, no acute distress HEAD EXAM: atraumatic, normocephalic, normal inspection EYE EXAM: normal appearance, PERRL, EOMI. Absent: scleral icterus, conjunctival injection, periorbital swelling ENT EXAM: normal exam, mucous membranes moist NECK EXAM: normal inspection. Absent: tenderness, meningismus, full ROM, lymphadenopathy RESPIRATORY EXAM: Diminished breath sounds bilaterally. No wheezing or crackles CARDIOVASCULAR EXAM: regular rate, normal rhythm, normal heart sounds. Absent : systolic murmur, diastolic murmur, rubs, gallop, clicks GI/ABDOMINAL EXAM: soft, normal bowel sounds. Absent: distended, tenderness, guarding, rebound, rigid EXTREMITIES EXAM: Left lower extremity has more girth than the right side NEUROLOGICAL EXAM: alert, oriented X2, strength- 3 out of 5 in the right upper and lower extremity. Unable to move the left lower extremity due to pain in the hip joint. Strength is 3 out of 5 in the left upper extremity. PSYCHIATRIC EXAM: normal affect, normal mood SKIN EXAM: Easily bruises, scaly rash on bilateral upper extremities Results CBC & Chem 7: 04/07/17 05:38 04/07/17 05:38 Labs: Abnormal Lab Results - Last 24 Hours (Table) 04/05/17 04/05/17 04/05/17 Range/Units 15:55 15:55 15:55 WBC 26.1 H* (3.8-10.6) k/uL Neutrophils # (Manual) 20.4 H (1.3-7.7) k/uL Monocytes # (Manual) 4.4 H (0-1.0) k/uL APTT (22.0-30.0) sec BUN 31 H (9-20) mg/dL Creatinine 1.30 H (0.66-1.25) mg/dL Glucose 125 H (74-99) mg/dL Alkaline Phosphatase 138 H (38-126) U/L Total Creatine Kinase 27 L (55-170) U/L HDL Cholesterol (40-60) mg/dL Urine Protein (Negative) Urine Bacteria (None) /hpf Hyaline Casts (0-2) /lpf Urine Mucus (None) /hpf 04/05/17 04/05/17 04/06/17 Range/Units 15:55 18:45 06:11 WBC (3.8-10.6) k/uL Neutrophils # (Manual) (1.3-7.7) k/uL Monocytes # (Manual) (0-1.0) k/uL APTT 21.6 L (22.0-30.0) sec BUN (9-20) mg/dL Creatinine (0.66-1.25) mg/dL Glucose (74-99) mg/dL Alkaline Phosphatase (38-126) U/L Total Creatine Kinase (55-170) U/L HDL Cholesterol 63 H (40-60) mg/dL Urine Protein 1+ H (Negative) Urine Bacteria Rare H (None) /hpf Hyaline Casts 5 H (0-2) /lpf Urine Mucus Rare H (None) /hpf Comments: X-ray of the left hip-acute displaced subcapital fracture of left proximal femur Left lower extremity Doppler- negative for DVT Thrombosis Risk Factor Assmnt - Choose All That Apply Any of the Below Risk Factors Present?: Yes Each Factor Represents 1 point: Medical pt on bed rest Other Risk Factors: Yes Each Risk Factor Represents 3 Points: Age 75 years or older Thrombosis Risk Factor Assessment Total Risk Factor Score: 4 Thrombosis Risk Factor Assessment Level: Moderate Risk Assessment and Plan Plan: Assessment Acute displaced subcapital fracture of left proximal femur Leukocytosis - can be secondary to chronic steroid use History of stroke with right-sided weakness ? Psoriasis GERD Hypertension Cognitive impairment Dysarthria Osteoarthritis Hard of hearing Plan Patient got x-rays of the left hip showing acute fracture so we'll consult orthopedics. Lower extremity Doppler negative for DVT. We will continue with the rest of his home medication regimen. Further recommendations to follow depending on the progress of the patient. The treatment plan was discussed in detail with the patient's and son who are at the bedside. Overall prognosis guarded.
--- NOTE | 2017-04-07 13:21 | CONS ---
An 82 year old gentleman who apparently was admitted to thru the emergency department on April 05. He apparently came in initially because he was thought to be having a stroke. He had some left sided weakness and some confusion. He does have a previous history of CVA in the past. He fell off the commode. Apparently injured his left hip and was found to be fractured. Anyway, he was admitted on the through the emergency department. The plan was to go ahead and repair his hip tomorrow. Unfortunately, a number of things have intervened which has caused him to be transferred to the ICU. He had significant temperature elevation and tachycardia. He apparently also developed abdominal distention and possible small bowel obstruction. The patient was just very very short of breath as well and for all these reasons he was transferred over to the ICU after an A-Team was called. Currently, the patient is resting comfortably. He just went down for a CT scan of the abdomen. I have asked the nurse to call orthopedics and tell them that he is certainly not able to have surgery tomorrow. Currently he is on O2 at 2 L and also an IV at 0.9 being bolused. Again he does have history of recent left hip fracture. Home medications include: 1. Ziac. 2. Plavix. 3. Amlodipine/Benazepril which is Lotrel. 4. Zantac. 5. Prednisone. ALLERGIES: No known allergies. Medical history includes CVA/TIA, GERD, hypertension, DJD, some sort of skin disorder. He also has previously had a hemorrhoidectomy, bilateral rotator cuff surgery. Social history is positive for previous tobacco use. Occupational history is not known. There is no history of illicit drug use. Family history is not documented. REVIEW OF SYSTEMS: Unreliable and cannot really be reliably obtained at this time. Currently, temperature is 98.4, heart rate is 128. Respiratory rate is 16. Blood pressure 175/86. Mean 115. On 3 L saturation 100%. Appears in no acute distress. Very confused. He look much older than stated age. HEENT: Grossly unremarkable. Mucous membranes are dry. Neck supple. Cardiovascular examination reveals regular rate and rhythm. He is quite tachycardic. Lungs reveal a few scattered rhonchi. Breath sounds diminished. He does not take deep breaths. Abdomen soft. Bowel sounds heard. Skin shows multiple areas of ecchymosis. Neurological examination cannot be reliably done. Labs are reviewed. White count 37.3, hemoglobin and hematocrit stable. Platelet count 359,000. Blood gases show PO2 75, PCo2 24, pH 7.49 Sodium 134, and potassium 5.3. Chloride 102, CO2 16, anion gap 16. BUN and creatinine 34 and 1.3. Lactate 4.8. Urine essentially was negative. Chest x-ray shows cardiomegaly with basilar atelectasis favored over infiltrate. Brain CT showed no acute process. Carotid Doppler showed bilateral plaques without significant stenosis. Hip x-ray showed acute subcapital fracture left proximal femur. Venous Doppler study was negative for DVT. Follow up x-ray continues to show left basilar infiltrate. Labs are again reviewed. Microbiology is pending or negative. ASSESSMENT: 1. Left hip fracture, status post fall. 2. Possible cerebrovascular accident/transient ischemic attack. 3. Left basilar infiltrate/atelectasis. 4. History of cerebrovascular accident. 5. History of gastroesophageal reflux disease. 6. History of hypertension. 7. History of degenerative joint disease. PLAN: From my perspective, the patient will go down for CT of the abdomen. Additional recommendations and suggestions forthcoming. We will keep him NPO for now. NG tube was placed. Medications are reviewed. We will continue to follow. Prognosis guarded. Critical care time 36 minutes. MTDD
[2017-04-07] MEDS: INSULIN LISPRO (humaLOG) 300 UNIT/3 ML VIAL SQ SCH ×3 (13:45→20:11)
[2017-04-07] MEDS ORDERED: NOREPINEPHRIN 4 MG-0.9% NS PMX 4 MG/250 ML ML IV SCH (15:30)
[2017-04-07 16:47] LABS: Creatine Kinase MB 1.8 ng/mL (0.0-2.4)
[2017-04-07 16:50] LABS: Troponin I 0.043 ng/mL (0.000-0.034)
[2017-04-07] MEDS: ACETAMINOPHEN IV (For NPO) 1,000 MG in EMPTY BAG 1 BAG IVPB PRN (17:11)
[2017-04-07 17:13] LABS: Glucose,Whole Blood 160 mg/dL (75-99)
[2017-04-07 20:11] LABS: Glucose,Whole Blood 138 mg/dL (75-99)
[2017-04-07] MEDS: ATORVASTATIN 10 MG TAB PO SCH (20:13)
[2017-04-07 22:03] LABS: Troponin I 0.036 ng/mL (0.000-0.034)
[2017-04-07 22:05] LABS: Creatine Kinase MB 2.3 ng/mL (0.0-2.4)
[2017-04-07] MEDS ORDERED: IPRATROPIUM-ALBUTEROL 3 ML NEB INHALATION PRN (22:38)
[2017-04-07] MEDS: VANCOMYCIN 1,000 MG in SODIUM CHLORIDE 0.9% 250 ML IVPB SCH (22:44)
[2017-04-07 23:28] LABS: Magnesium 1.6 mg/dL (1.6-2.3); Phosphorous 3.1 mg/dL (2.5-4.5); Potassium 3.5 mmol/L (3.5-5.1)
[2017-04-08] MEDS: HYDROCORTISONE SUCCINATE 100 MG/2 ML VIAL IV SCH ×3 (00:07→18:06)
[2017-04-08] MEDS: HEPARIN SODIUM,PORCINE 5,000 UNIT/ML 1 ML VIAL SQ SCH ×3 (00:07→18:06)
[2017-04-08 00:08] LABS: Glucose,Whole Blood 130 mg/dL (75-99)
[2017-04-08] MEDS: INSULIN LISPRO (humaLOG) 300 UNIT/3 ML VIAL SQ SCH ×6 (00:12→21:10)
[2017-04-08] MEDS ORDERED: Magnesium Replacement Protocol 1 EACH MISC MISCELLANE PRN (01:49)
[2017-04-08] MEDS ORDERED: Phosphorus Replacement Protoco 1 EACH MISC MISCELLANE PRN (01:49)
[2017-04-08] MEDS ORDERED: Potassium Replacement Protocol 1 EACH MISC MISCELLANE PRN (01:49)
[2017-04-08] MEDS: POTASSIUM CHLORIDE 10 MEQ, LIDOCAINE 2% INJ 10 MG in SODIUM CHLORIDE 0.9% 100 ML IV SCH ×2 (02:06→03:28)
[2017-04-08] MEDS: MAGNESIUM SULFATE-D5W PMX 1 GM in DEXTROSE/WATER 1 100ML.BAG IVPB SCH ×2 (02:06→03:28)
[2017-04-08 04:09] LABS: Glucose,Whole Blood 155 mg/dL (75-99)
[2017-04-08] MEDS: ACETAMINOPHEN IV (For NPO) 1,000 MG in EMPTY BAG 1 BAG IVPB PRN (04:50)
[2017-04-08 06:57] LABS: Basophils % (A) 0 %; CH 29.7; CHCM 32.8; Eosinophils # (A) 0.1 k/uL (0-0.7); Eosinophils % (A) 0 %; HDW 2.48; HGB 12.3 gm/dL (13.0-17.5); Luc # (Auto) 0.17; Luc % (Auto) 1; Lymphocytes # (A) 0.7 k/uL (1.0-4.8); Lymphocytes % (A) 3 %; MCH 30.1 pg (25.0-35.0); MCHC 33.1 g/dL (31.0-37.0); MCV 90.9 fL (80.0-100.0); Mean Platelet Volume 8.7; Monocytes # (A) 0.9 k/uL (0-1.0); Monocytes % (A) 4 %; Neutrophils # (A) 21.2 k/uL (1.3-7.7); Neutrophils % (A) 92 %; RBC 4.07 m/uL (4.30-5.90); RDW 13.8 % (11.5-15.5); WBC 22.9 k/uL (3.8-10.6); WBC (Perox) 23.75
[2017-04-08] MEDS: IPRATROPIUM-ALBUTEROL 3 ML NEB INHALATION SCH ×4 (07:18→19:33)
[2017-04-08 08:01] LABS: Glucose,Whole Blood 104 mg/dL (75-99)
[2017-04-08 08:05] LABS: Anion Gap 5 mmol/L; Blood Urea Nitrogen 29 mg/dL (9-20); Calcium 7.5 mg/dL (8.4-10.2); Carbon Dioxide 17 mmol/L (22-30); Chloride 117 mmol/L (98-107); Glucose 121 mg/dL (74-99); Non-African American GFR(MDRD) >60 (>60 ml/min/1.73 sqM); Sodium 139 mmol/L (137-145)
[2017-04-08] MEDS: CLOPIDOGREL 75 MG TAB PO SCH (08:06)
[2017-04-08] MEDS: BISOPROLOL-HCTZ 10-6.25 MG 1 EACH TAB PO SCH (08:06)
[2017-04-08] MEDS: amLODIPine 5 MG TAB PO SCH (08:06)
[2017-04-08] MEDS: LISINOPRIL 20 MG TAB PO SCH (08:06)
[2017-04-08] MEDS: ASPIRIN 325 MG TAB PO SCH (08:06)
[2017-04-08] MEDS: PANTOPRAZOLE 40 MG/10 ML VIAL IV SCH (08:06)
[2017-04-08 08:16] LABS: Hemoglobin A1C 6.3 % (4.2-6.1)
--- NOTE | 2017-04-08 08:38 | P.PN ---
Subjective Principal diagnosis: Hip fracture This is an 82-year-old white male essentially admitted for closer fracture. He has no significant recollection of what exactly happened. He has an underlying history of gout with previous CVA in the past. He seems to be more alert today. No voiding difficulties. No significant chest pain or shortness of breath. Objective - Vital Signs Vital signs: Vital Signs Temp 97.5 F L 04/08/17 08:00 Pulse 76 04/08/17 08:00 Resp 24 04/08/17 08:00 BP 128/75 04/08/17 08:00 Pulse Ox 95 04/08/17 08:00 Intake & Output 04/07/17 04/08/17 04/08/17 18:59 06:59 18:59 Intake Total 5633.25 1978.125 200 Output Total 1178 361 52 Balance 4455.25 1617.125 148 Weight 55.1 kg 77 kg 77 kg Intake: IV 800 1200 200 Sodium Chloride 0.9% 1, 800 1200 200 000 ml @ 100 mls/hr IV . Q10H [facility] Rx#:[id number] Intake, IV Titration 4633.25 778.125 Amount ACETAMINOPHEN IV (For NPO 100 100 ) 1,000 mg In Empty Bag 1 bag @ 400 mls/hr IVPB Q6HR PRN Rx#:[id number] Magnesium Sulfate-D5w Pmx 200 1 gm In Dextrose/Water 1 100ml.bag @ 100 mls/hr IVPB Q1H [facility] Rx#: [id number] Norepinephrin 4 mg-0.9% 48.75 28.125 Ns Pmx 4 mg In 250 ml @ Titrate IV .Q0M [facility] Rx#: [id number] Piperacillin-Tazobactam 3 37.5 .375 gm In Dextrose/Water 1 50ml.bag @ 12.5 mls/hr IVPB ONCE [facility] Rx#: [id number] Potassium Chloride 10 meq 200 Lidocaine 2% Inj 10 mg In Sodium Chloride 0.9% 100 ml @ 100 mls/hr IV Q1HR [facility] Rx#:[id number] Sodium Chloride 0.9% 1, 200 000 ml @ 20 mls/hr IV . Q24H [facility] Rx#:[id number] Sodium Chloride 0.9% 1, 1998 000 ml @ 999 mls/hr IV . Q1H1M [facility] Rx#:[id number] Sodium Chloride 0.9% 1, 999 000 ml @ 999 mls/hr IV . Q1H1M [facility] Rx#:[id number] Sodium Chloride 0.9% 500 1000 ml @ 1000 mls/hr IV Q35M [facility] Rx#:[id number] Vancomycin 1,000 mg In 250 250 Sodium Chloride 0.9% 250 ml @ 125 mls/hr IVPB Q16H [facility] Rx#:[id number] Oral 200 Output: Gastric Drainage 50 Urine 1125 361 52 Stool 3 Other: Voiding Method Indwelling Catheter Indwelling Catheter # Voids 5 - Constitutional General appearance: Present: average body habitus - EENT Eyes: Absent: abnormal pupil - Respiratory Respiratory: bilateral: CTA - Gastrointestinal General gastrointestinal: Present: soft. Absent: tenderness - Integumentary Integumentary: Absent: cellulitis - Labs CBC & Chem 7: 04/08/17 06:37 04/08/17 06:37 Labs: Abnormal Lab Results - Last 24 Hours (Table) 04/07/17 04/07/17 04/07/17 Range/Units 05:38 09:41 09:41 WBC (3.8-10.6) k/uL RBC (4.30-5.90) m/uL Hgb (13.0-17.5) gm/dL Hct (39.0-53.0) % Neutrophils # (1.3-7.7) k/uL Lymphocytes # (1.0-4.8) k/uL INR 1.2 H (<1.2) Chloride (98-107) mmol/L Carbon Dioxide (22-30) mmol/L BUN (9-20) mg/dL Glucose (74-99) mg/dL POC Glucose (mg/dL) (75-99) mg/dL Hemoglobin A1c 6.3 H (4.2-6.1) % Plasma Lactic Acid Froy (0.7-2.0) mmol/L Calcium (8.4-10.2) mg/dL Total Creatine Kinase 310 H (55-170) U/L Troponin I 0.042 H* (0.000-0.034) ng/mL 04/07/17 04/07/17 04/07/17 Range/Units 09:41 12:20 15:48 WBC (3.8-10.6) k/uL RBC (4.30-5.90) m/uL Hgb (13.0-17.5) gm/dL Hct (39.0-53.0) % Neutrophils # (1.3-7.7) k/uL Lymphocytes # (1.0-4.8) k/uL INR (<1.2) Chloride (98-107) mmol/L Carbon Dioxide (22-30) mmol/L BUN (9-20) mg/dL Glucose (74-99) mg/dL POC Glucose (mg/dL) 183 H (75-99) mg/dL Hemoglobin A1c (4.2-6.1) % Plasma Lactic Acid Froy 2.7 H* (0.7-2.0) mmol/L Calcium (8.4-10.2) mg/dL Total Creatine Kinase 246 H (55-170) U/L Troponin I 0.043 H* (0.000-0.034) ng/mL 04/07/17 04/07/17 04/07/17 Range/Units 17:10 20:09 21:10 WBC (3.8-10.6) k/uL RBC (4.30-5.90) m/uL Hgb (13.0-17.5) gm/dL Hct (39.0-53.0) % Neutrophils # (1.3-7.7) k/uL Lymphocytes # (1.0-4.8) k/uL INR (<1.2) Chloride (98-107) mmol/L Carbon Dioxide (22-30) mmol/L BUN (9-20) mg/dL Glucose (74-99) mg/dL POC Glucose (mg/dL) 160 H 138 H (75-99) mg/dL Hemoglobin A1c (4.2-6.1) % Plasma Lactic Acid Froy (0.7-2.0) mmol/L Calcium (8.4-10.2) mg/dL Total Creatine Kinase 242 H (55-170) U/L Troponin I 0.036 H* (0.000-0.034) ng/mL 04/08/17 04/08/17 04/08/17 Range/Units 00:06 04:07 06:37 WBC (3.8-10.6) k/uL RBC (4.30-5.90) m/uL Hgb (13.0-17.5) gm/dL Hct (39.0-53.0) % Neutrophils # (1.3-7.7) k/uL Lymphocytes # (1.0-4.8) k/uL INR (<1.2) Chloride 117 H (98-107) mmol/L Carbon Dioxide 17 L (22-30) mmol/L BUN 29 H (9-20) mg/dL Glucose 121 H (74-99) mg/dL POC Glucose (mg/dL) 130 H 155 H (75-99) mg/dL Hemoglobin A1c (4.2-6.1) % Plasma Lactic Acid Froy (0.7-2.0) mmol/L Calcium 7.5 L (8.4-10.2) mg/dL Total Creatine Kinase (55-170) U/L Troponin I (0.000-0.034) ng/mL 04/08/17 04/08/17 Range/Units 06:37 07:59 WBC 22.9 H (3.8-10.6) k/uL RBC 4.07 L (4.30-5.90) m/uL Hgb 12.3 L D (13.0-17.5) gm/dL Hct 37.0 L (39.0-53.0) % Neutrophils # 21.2 H (1.3-7.7) k/uL Lymphocytes # 0.7 L (1.0-4.8) k/uL INR (<1.2) Chloride (98-107) mmol/L Carbon Dioxide (22-30) mmol/L BUN (9-20) mg/dL Glucose (74-99) mg/dL POC Glucose (mg/dL) 104 H (75-99) mg/dL Hemoglobin A1c (4.2-6.1) % Plasma Lactic Acid Froy (0.7-2.0) mmol/L Calcium (8.4-10.2) mg/dL Total Creatine Kinase (55-170) U/L Troponin I (0.000-0.034) ng/mL Microbiology - Last 24 Hours (Table) 04/05/17 15:55 Blood Culture - Preliminary Blood No Growth after 48 hours 04/07/17 07:30 Urine Culture - Preliminary Urine,Catheterized Assessment and Plan (1) CVA (cerebral vascular accident) Status: Acute (2) Closed left hip fracture Status: Acute Plan: The patient is scheduled for hip fracture today. We'll check labs for pending medical clearance. See orders otherwise. Prognosis is guarded given his advanced age and multiple comorbidities. See orders otherwise. Time with Patient: Greater than 30
--- NOTE | 2017-04-08 09:30 | P.PN ---
Subjective Principal diagnosis: Left hip fracture This is an 82-year-old male admitted for pneumonia, left hip fracture and possible CVA. Patient is much more alert today is able to answer questions clearly. Patient still complains of pain to the left hip. Patient denies any calf tenderness. Patient denies any decreased sensation to the left lower extremity. Patient states the pain has been tolerable unless there is any movement of the left lower extremity. Patient has not been cleared for surgery today. Objective - Vital Signs Vital signs: Vital Signs Temp 97.5 F L 04/08/17 08:00 Pulse 81 04/08/17 09:00 Resp 18 04/08/17 09:00 BP 113/59 04/08/17 09:00 Pulse Ox 93 L 04/08/17 09:00 Intake & Output 04/07/17 04/08/17 04/08/17 18:59 06:59 18:59 Intake Total 5633.25 1978.125 300 Output Total 1178 361 84 Balance 4455.25 1617.125 216 Weight 55.1 kg 77 kg 77 kg Intake: IV 800 1200 200 Sodium Chloride 0.9% 1, 800 1200 200 000 ml @ 100 mls/hr IV . Q10H [facility] Rx#:[id number] Intake, IV Titration 4633.25 778.125 100 Amount ACETAMINOPHEN IV (For NPO 100 100 ) 1,000 mg In Empty Bag 1 bag @ 400 mls/hr IVPB Q6HR PRN Rx#:[id number] Magnesium Sulfate-D5w Pmx 200 1 gm In Dextrose/Water 1 100ml.bag @ 100 mls/hr IVPB Q1H [facility] Rx#: [id number] Norepinephrin 4 mg-0.9% 48.75 28.125 Ns Pmx 4 mg In 250 ml @ Titrate IV .Q0M [facility] Rx#: [id number] Piperacillin-Tazobactam 3 37.5 .375 gm In Dextrose/Water 1 50ml.bag @ 12.5 mls/hr IVPB ONCE [facility] Rx#: [id number] Potassium Chloride 10 meq 200 100 Lidocaine 2% Inj 10 mg In Sodium Chloride 0.9% 100 ml @ 100 mls/hr IV Q1HR [facility] Rx#:[id number] Sodium Chloride 0.9% 1, 200 000 ml @ 20 mls/hr IV . Q24H [facility] Rx#:[id number] Sodium Chloride 0.9% 1, 1998 000 ml @ 999 mls/hr IV . Q1H1M [facility] Rx#:[id number] Sodium Chloride 0.9% 1, 999 000 ml @ 999 mls/hr IV . Q1H1M [facility] Rx#:[id number] Sodium Chloride 0.9% 500 1000 ml @ 1000 mls/hr IV Q35M [facility] Rx#:[id number] Vancomycin 1,000 mg In 250 250 Sodium Chloride 0.9% 250 ml @ 125 mls/hr IVPB Q16H [facility] Rx#:[id number] Oral 200 Output: Gastric Drainage 50 Urine 1125 361 84 Stool 3 Other: Voiding Method Indwelling Catheter Indwelling Catheter Indwelling Catheter # Voids 5 - Exam Patient is in no acute distress and is more alert today. On inspection, the left lower extremity is shortened and externally rotated. Calf is soft and nontender. Dorsalis pedis pulses are 1+ bilaterally. Neurovascular status intact. - Labs CBC & Chem 7: 04/08/17 06:37 04/08/17 06:37 Labs: Abnormal Lab Results - Last 24 Hours (Table) 04/07/17 04/07/17 04/07/17 Range/Units 05:38 09:41 09:41 WBC (3.8-10.6) k/uL RBC (4.30-5.90) m/uL Hgb (13.0-17.5) gm/dL Hct (39.0-53.0) % Neutrophils # (1.3-7.7) k/uL Lymphocytes # (1.0-4.8) k/uL INR 1.2 H (<1.2) Chloride (98-107) mmol/L Carbon Dioxide (22-30) mmol/L BUN (9-20) mg/dL Glucose (74-99) mg/dL POC Glucose (mg/dL) (75-99) mg/dL Hemoglobin A1c 6.3 H (4.2-6.1) % Plasma Lactic Acid Froy (0.7-2.0) mmol/L Calcium (8.4-10.2) mg/dL Total Creatine Kinase 310 H (55-170) U/L Troponin I 0.042 H* (0.000-0.034) ng/mL 04/07/17 04/07/17 04/07/17 Range/Units 09:41 12:20 15:48 WBC (3.8-10.6) k/uL RBC (4.30-5.90) m/uL Hgb (13.0-17.5) gm/dL Hct (39.0-53.0) % Neutrophils # (1.3-7.7) k/uL Lymphocytes # (1.0-4.8) k/uL INR (<1.2) Chloride (98-107) mmol/L Carbon Dioxide (22-30) mmol/L BUN (9-20) mg/dL Glucose (74-99) mg/dL POC Glucose (mg/dL) 183 H (75-99) mg/dL Hemoglobin A1c (4.2-6.1) % Plasma Lactic Acid Froy 2.7 H* (0.7-2.0) mmol/L Calcium (8.4-10.2) mg/dL Total Creatine Kinase 246 H (55-170) U/L Troponin I 0.043 H* (0.000-0.034) ng/mL 04/07/17 04/07/17 04/07/17 Range/Units 17:10 20:09 21:10 WBC (3.8-10.6) k/uL RBC (4.30-5.90) m/uL Hgb (13.0-17.5) gm/dL Hct (39.0-53.0) % Neutrophils # (1.3-7.7) k/uL Lymphocytes # (1.0-4.8) k/uL INR (<1.2) Chloride (98-107) mmol/L Carbon Dioxide (22-30) mmol/L BUN (9-20) mg/dL Glucose (74-99) mg/dL POC Glucose (mg/dL) 160 H 138 H (75-99) mg/dL Hemoglobin A1c (4.2-6.1) % Plasma Lactic Acid Froy (0.7-2.0) mmol/L Calcium (8.4-10.2) mg/dL Total Creatine Kinase 242 H (55-170) U/L Troponin I 0.036 H* (0.000-0.034) ng/mL 04/08/17 04/08/17 04/08/17 Range/Units 00:06 04:07 06:37 WBC (3.8-10.6) k/uL RBC (4.30-5.90) m/uL Hgb (13.0-17.5) gm/dL Hct (39.0-53.0) % Neutrophils # (1.3-7.7) k/uL Lymphocytes # (1.0-4.8) k/uL INR (<1.2) Chloride 117 H (98-107) mmol/L Carbon Dioxide 17 L (22-30) mmol/L BUN 29 H (9-20) mg/dL Glucose 121 H (74-99) mg/dL POC Glucose (mg/dL) 130 H 155 H (75-99) mg/dL Hemoglobin A1c (4.2-6.1) % Plasma Lactic Acid Froy (0.7-2.0) mmol/L Calcium 7.5 L (8.4-10.2) mg/dL Total Creatine Kinase (55-170) U/L Troponin I (0.000-0.034) ng/mL 04/08/17 04/08/17 Range/Units 06:37 07:59 WBC 22.9 H (3.8-10.6) k/uL RBC 4.07 L (4.30-5.90) m/uL Hgb 12.3 L D (13.0-17.5) gm/dL Hct 37.0 L (39.0-53.0) % Neutrophils # 21.2 H (1.3-7.7) k/uL Lymphocytes # 0.7 L (1.0-4.8) k/uL INR (<1.2) Chloride (98-107) mmol/L Carbon Dioxide (22-30) mmol/L BUN (9-20) mg/dL Glucose (74-99) mg/dL POC Glucose (mg/dL) 104 H (75-99) mg/dL Hemoglobin A1c (4.2-6.1) % Plasma Lactic Acid Froy (0.7-2.0) mmol/L Calcium (8.4-10.2) mg/dL Total Creatine Kinase (55-170) U/L Troponin I (0.000-0.034) ng/mL Microbiology - Last 24 Hours (Table) 04/05/17 15:55 Blood Culture - Preliminary Blood No Growth after 48 hours 04/07/17 07:30 Urine Culture - Preliminary Urine,Catheterized Assessment and Plan (1) Closed left hip fracture Status: Acute Plan: #1. Continue pain control and nonweightbearing status. #2. Left hemiarthroplasty is canceled as patient was not medically cleared for surgery. #3. Will continue to follow the patient closely.
--- NOTE | 2017-04-08 10:26 | ECHOF ---
Referral Reason:positive troponins, cardiomegaly, hypotension MEASUREMENTS -------- HEIGHT: 162.6 cm WEIGHT: 76.7 kg BP: 125/80 IVSd: 1.4 cm (0.6 - 1.1) LVIDd: 4.3 cm (3.9 - 5.3) LVPWd: 1.3 cm (0.6 - 1.1) IVSs: 1.9 cm LVIDs: 3.0 cm LVPWs: 1.7 cm LA Diam: 3.2 cm (2.7 - 3.8) LAESV Index (A-L): 20.63 ml/m Ao Diam: 3.6 cm (2.0 - 3.7) AV Cusp: 1.9 cm (1.5 - 2.6) LA Diam: 3.5 cm (2.7 - 3.8) MV EXCURSION: 22.907 mm (> 18.000) MV EF SLOPE: 62 mm/s (70 - 150) EPSS: 0.2 cm MV E Shayne: 0.96 m/s MV DecT: 180 ms MV A Shayne: 0.95 m/s MV E/A Ratio: 1.01 RAP: 5.00 mmHg RVSP: 19.26 mmHg FINDINGS -------- Sinus rhythm. This was a technically adequate study. The left ventricular size is normal. There is moderate concentric left ventricular hypertrophy. Overall left ventricular systolic function is normal with, an EF between 55 - 60 %. The right ventricle is normal in size. Normal LA size by volume 22+/-6 ml/m2. The right atrial size is normal. Aortic valve is trileaflet and is mildly thickened. Trace to mild aortic regurgitation. The mitral valve leaflets are mildly thickened. Mild mitral regurgitation is present. Mild tricuspid regurgitation present. There is no evidence of pulmonary hypertension. The right ventricular systolic pressure, as measured by Doppler, is 19.26mmHg. Trace/mild (physiologic) pulmonic regurgitation. The aortic root size is normal. There is no pericardial effusion. CONCLUSIONS -------- 1. Sinus rhythm. 2. There is no evidence of pulmonary hypertension. 3. Trace/mild (physiologic) pulmonic regurgitation. 4. The aortic root size is normal. 5. There is no pericardial effusion. 6. This was a technically adequate study. 7. There is moderate concentric left ventricular hypertrophy. 8. Overall left ventricular systolic function is normal with, an EF between 55 - 60 %. 9. Normal LA size by volume 22+/-6 ml/m2. 10. Aortic valve is trileaflet and is mildly thickened. 11. Trace to mild aortic regurgitation. 12. Mild mitral regurgitation is present. 13. Mild tricuspid regurgitation present. [employer]IVER OFFICER: Jenifer Gayle RDCS
--- NOTE | 2017-04-08 10:40 | P.PN ---
Subjective Principal diagnosis: CVA/TIA with left-sided weakness, left femur fracture This is a very pleasant 82-year-old gentleman who follows with Dr. Anderson as his primary care physician. 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 He had presented here on 04/05/2017 with concerns regarding possible recurrent CVA/TIA with this time left-sided weakness, confusion. His family felt he was getting confused and we consented help them to the bathroom and apparently the patient had fallen off the commode at some point. He was helped up into a chair and EMS was called. A computed tomography scan of the brain revealed no acute process. Carotid Dopplers revealed no significant stenosis. Chest x-ray showed cardiomegaly with basilar atelectasis. Venous Doppler was negative for DVT of the left. Left hip x-ray revealed suspected acute subcapital fracture of the left proximal femur and the plan was for surgical repair 04/08/2017. He was initially admitted to the regular medical floor. He subsequently developed abdominal distention possible small bowel obstruction. He became very short of breath and tachycardic and an a team was called. He was subsequently transferred here to the intensive care unit. He had been seen and evaluated yesterday by Dr. James. He is seen again today in follow-up. He is awake and alert in no acute distress. He has strong equal hand grasps. His speech does at times seems garbled and other times quite clear. He is maintaining good O2 saturations in the mid 90s on 3 L/m per nasal cannula. He is afebrile. He was on norepinephrine overnight however was turned off approximate 7:30 this morning and he is maintaining O2 mean arterial pressures greater than 60. His urine output has been borderline. Fluid boluses been initiated. He is status post 4 L of fluid resuscitation since admission. Peak WBC is 37 currently at 22.9. Peak lactic acid 4.8, currently 1.3. Renal function is improved currently 1.05 creatinine. Chest x-ray continues to show left basilar atelectasis/infiltrate. He is currently on vancomycin. Blood cultures reveal no growth to date. Urine and sputum cultures pending. Objective - Vital Signs Vital signs: Vital Signs Temp 97.5 F L 04/08/17 08:00 Pulse 81 04/08/17 09:00 Resp 18 04/08/17 09:00 BP 113/59 04/08/17 09:00 Pulse Ox 93 L 04/08/17 09:00 Intake & Output 04/07/17 04/08/17 04/08/17 18:59 06:59 18:59 Intake Total 5633.25 1978.125 300 Output Total 1178 361 84 Balance 4455.25 1617.125 216 Weight 55.1 kg 77 kg 77 kg Intake: IV 800 1200 200 Sodium Chloride 0.9% 1, 800 1200 200 000 ml @ 100 mls/hr IV . Q10H [facility] Rx#:[id number] Intake, IV Titration 4633.25 778.125 100 Amount ACETAMINOPHEN IV (For NPO 100 100 ) 1,000 mg In Empty Bag 1 bag @ 400 mls/hr IVPB Q6HR [facility] Rx#:[id number] Magnesium Sulfate-D5w Pmx 200 1 gm In Dextrose/Water 1 100ml.bag @ 100 mls/hr IVPB Q1H [facility] Rx#: [id number] Norepinephrin 4 mg-0.9% 48.75 28.125 Ns Pmx 4 mg In 250 ml @ Titrate IV .Q0M [facility] Rx#: [id number] Piperacillin-Tazobactam 3 37.5 .375 gm In Dextrose/Water 1 50ml.bag @ 12.5 mls/hr IVPB ONCE [facility] Rx#: [id number] Potassium Chloride 10 meq 200 100 Lidocaine 2% Inj 10 mg In Sodium Chloride 0.9% 100 ml @ 100 mls/hr IV Q1HR [facility] Rx#:[id number] Sodium Chloride 0.9% 1, 200 000 ml @ 20 mls/hr IV . Q24H [facility] Rx#:[id number] Sodium Chloride 0.9% 1, 1998 000 ml @ 999 mls/hr IV . Q1H1M [facility] Rx#:[id number] Sodium Chloride 0.9% 1, 999 000 ml @ 999 mls/hr IV . Q1H1M [facility] Rx#:[id number] Sodium Chloride 0.9% 500 1000 ml @ 1000 mls/hr IV Q35M [facility] Rx#:[id number] Vancomycin 1,000 mg In 250 250 Sodium Chloride 0.9% 250 ml @ 125 mls/hr IVPB Q16H [facility] Rx#:[id number] Oral 200 Output: Gastric Drainage 50 Urine 1125 361 84 Stool 3 Other: Voiding Method Indwelling Catheter Indwelling Catheter Indwelling Catheter # Voids 5 - Exam GENERAL EXAM: Alert, fairly comfortable in no acute distress. EYES: Normal reaction of pupils, equal size. NOSE: Clear with pink turbinates. THROAT: No erythema or exudates. NECK: No masses, no JVD. CHEST: No chest wall deformity. LUNGS: Equal air entry with crackles in the left posterior base. CVS: S1 and S2 normal with no audible murmurs, regular rhythm. ABDOMEN: Slightly distended, normal bowel sounds, no guarding or rigidity. Extremities: He has bilateral hand grasps are equal and strong, able to move right lower extremity. Wiggling toes. Peripheral pulses are intact. No clubbing, no cyanosis. - Labs CBC & Chem 7: 04/08/17 06:37 04/08/17 06:37 Labs: Abnormal Lab Results - Last 24 Hours (Table) 04/07/17 04/07/17 04/07/17 Range/Units 05:38 09:41 12:20 WBC (3.8-10.6) k/uL RBC (4.30-5.90) m/uL Hgb (13.0-17.5) gm/dL Hct (39.0-53.0) % Neutrophils # (1.3-7.7) k/uL Lymphocytes # (1.0-4.8) k/uL Chloride (98-107) mmol/L Carbon Dioxide (22-30) mmol/L BUN (9-20) mg/dL Glucose (74-99) mg/dL POC Glucose (mg/dL) 183 H (75-99) mg/dL Hemoglobin A1c 6.3 H (4.2-6.1) % Calcium (8.4-10.2) mg/dL Total Creatine Kinase 310 H (55-170) U/L Troponin I 0.042 H* (0.000-0.034) ng/mL 04/07/17 04/07/17 04/07/17 Range/Units 15:48 17:10 20:09 WBC (3.8-10.6) k/uL RBC (4.30-5.90) m/uL Hgb (13.0-17.5) gm/dL Hct (39.0-53.0) % Neutrophils # (1.3-7.7) k/uL Lymphocytes # (1.0-4.8) k/uL Chloride (98-107) mmol/L Carbon Dioxide (22-30) mmol/L BUN (9-20) mg/dL Glucose (74-99) mg/dL POC Glucose (mg/dL) 160 H 138 H (75-99) mg/dL Hemoglobin A1c (4.2-6.1) % Calcium (8.4-10.2) mg/dL Total Creatine Kinase 246 H (55-170) U/L Troponin I 0.043 H* (0.000-0.034) ng/mL 04/07/17 04/08/17 04/08/17 Range/Units 21:10 00:06 04:07 WBC (3.8-10.6) k/uL RBC (4.30-5.90) m/uL Hgb (13.0-17.5) gm/dL Hct (39.0-53.0) % Neutrophils # (1.3-7.7) k/uL Lymphocytes # (1.0-4.8) k/uL Chloride (98-107) mmol/L Carbon Dioxide (22-30) mmol/L BUN (9-20) mg/dL Glucose (74-99) mg/dL POC Glucose (mg/dL) 130 H 155 H (75-99) mg/dL Hemoglobin A1c (4.2-6.1) % Calcium (8.4-10.2) mg/dL Total Creatine Kinase 242 H (55-170) U/L Troponin I 0.036 H* (0.000-0.034) ng/mL 04/08/17 04/08/17 04/08/17 Range/Units 06:37 06:37 07:59 WBC 22.9 H (3.8-10.6) k/uL RBC 4.07 L (4.30-5.90) m/uL Hgb 12.3 L D (13.0-17.5) gm/dL Hct 37.0 L (39.0-53.0) % Neutrophils # 21.2 H (1.3-7.7) k/uL Lymphocytes # 0.7 L (1.0-4.8) k/uL Chloride 117 H (98-107) mmol/L Carbon Dioxide 17 L (22-30) mmol/L BUN 29 H (9-20) mg/dL Glucose 121 H (74-99) mg/dL POC Glucose (mg/dL) 104 H (75-99) mg/dL Hemoglobin A1c (4.2-6.1) % Calcium 7.5 L (8.4-10.2) mg/dL Total Creatine Kinase (55-170) U/L Troponin I (0.000-0.034) ng/mL Microbiology - Last 24 Hours (Table) 04/07/17 07:40 Blood Culture - Preliminary Blood No Growth after 24 hours 04/05/17 15:55 Blood Culture - Preliminary Blood No Growth after 48 hours 04/07/17 07:30 Urine Culture - Preliminary Urine,Catheterized Assessment and Plan Plan: Impression: #1 Altered mental status with left-sided weakness and suspected CVA/TIA. #2 Fall with trauma and fracture of the left proximal femur. #3 Abdominal distention with suspected bowel obstruction, nasogastric tube in place. #4 Left lower lobe atelectasis/infiltrate with acute hypoxic respiratory failure initial P O2 75 on 40% FiO2. #5 Leukocytosis with febrile illness of unclear etiology. #6 Sepsis with hypotension requiring norepinephrine. #7 Lactic acidosis, recovered #8 Previous history of CVA/TIA with residual right-sided weakness and aphasia. #9 History of hypertension. #10 Gastroesophageal reflux disease. #11 Osteoarthritis. #12 Poor overall functional performance based on the above-mentioned multiple comorbidities. Plan: The patient was seen and evaluated by Dr. Loza. We will go ahead and give an additional liter of fluids today based on his borderline urine output and borderline blood pressure. He is currently off and norepinephrine. We'll monitor him closely here in the intensive care unit another 24 hours. In the interim we'll continue with vancomycin, bronchodilators, educate regarding the use of the incentive spirometer and cough and deep breathing exercises, await further culture results. He remains on heparin for DVT prophylaxis and Protonix for GI prophylaxis. He is on hydrocortisone. He'll remain nothing by mouth for now. Nasogastric tube will be discontinued and we will initiate a diet then nothing by mouth after midnight. If he remains hemodynamically stable we can proceed with left proximal femur repair. We will continue to follow and make further recommendations based on his clinical status. Time with Patient: Greater than 30
[2017-04-08] MEDS ORDERED: SODIUM CHLORIDE 0.9% 1,000 ML IV ONE (11:31)
[2017-04-08] MEDS: VANCOMYCIN 1,000 MG in SODIUM CHLORIDE 0.9% 250 ML IVPB SCH (13:41)
[2017-04-08 17:32] LABS: Glucose,Whole Blood 134 mg/dL (75-99)
[2017-04-08 21:08] LABS: Glucose,Whole Blood 116 mg/dL (75-99)
[2017-04-08] MEDS: ATORVASTATIN 10 MG TAB PO SCH (21:10)
[2017-04-08] MEDS: SODIUM CHLORIDE 0.9% 1,000 ML IV SCH (21:10)
[2017-04-09] MEDS: HYDROCORTISONE SUCCINATE 100 MG/2 ML VIAL IV SCH ×4 (01:52→20:04)
[2017-04-09] MEDS: HEPARIN SODIUM,PORCINE 5,000 UNIT/ML 1 ML VIAL SQ SCH ×4 (01:58→23:21)
[2017-04-09] MEDS ORDERED: VANCOMYCIN TROUGH DUE 1 EACH MISC MISCELLANE ONE (05:00)
[2017-04-09] MEDS: SODIUM CHLORIDE 0.9% 1,000 ML IV SCH ×2 (05:36→18:43)
[2017-04-09 06:28] LABS: Anion Gap 7 mmol/L; Blood Urea Nitrogen 27 mg/dL (9-20); Calcium 7.5 mg/dL (8.4-10.2); Carbon Dioxide 17 mmol/L (22-30); Chloride 115 mmol/L (98-107); Glucose 97 mg/dL (74-99); Magnesium 2.4 mg/dL (1.6-2.3); Non-African American GFR(MDRD) >60 (>60 ml/min/1.73 sqM); Phosphorous 2.8 mg/dL (2.5-4.5); Potassium 3.9 mmol/L (3.5-5.1); Sodium 139 mmol/L (137-145)
[2017-04-09] MEDS: VANCOMYCIN 1,000 MG in SODIUM CHLORIDE 0.9% 250 ML IVPB SCH (07:04)
[2017-04-09 07:29] LABS: Glucose,Whole Blood 103 mg/dL (75-99)
[2017-04-09] MEDS: IPRATROPIUM-ALBUTEROL 3 ML NEB INHALATION SCH ×4 (07:38→19:50)
--- NOTE | 2017-04-09 08:07 | P.PN ---
Subjective Principal diagnosis: Hip fracture This is a continue prednisone a 2-year-old white male essentially admitted for hip fracture and pneumonia. Mr. status is significant improved. However, he was not on anticoagulation secondary to possible CVA. This needs to be discontinued prior to surgery. We anticipate orthopedic repair in later in the week. No new voiding difficulties. He seems to be able to answer questions and follow commands appropriately today. No new voiding difficulties stated. No significant nausea. We suspect aspiration secondary to his chronic vomiting. I had a long discussion with the as far as his overall prognosis and possible hip repair. Again, the patient has no recollection of his fall. Objective - Vital Signs Vital signs: Vital Signs Temp 97.4 F L 04/09/17 00:00 Pulse 120 H 04/09/17 07:50 Resp 24 04/09/17 07:00 BP 124/64 04/09/17 07:00 Pulse Ox 93 L 04/09/17 07:00 Intake & Output 04/08/17 04/09/17 04/09/17 18:59 06:59 18:59 Intake Total 2261 1200 100 Output Total 397 466 30 Balance 1864 734 70 Weight 77 kg 80.6 kg Intake: IV 500 Sodium Chloride 0.9% 1, 500 000 ml @ 100 mls/hr IV . Q10H [facility] Rx#:[id number] Intake, IV Titration 1761 1200 100 Amount Norepinephrin 4 mg-0.9% 11 Ns Pmx 4 mg In 250 ml @ Titrate IV .Q0M [facility] Rx#: [id number] Potassium Chloride 10 meq 100 Lidocaine 2% Inj 10 mg In Sodium Chloride 0.9% 100 ml @ 100 mls/hr IV Q1HR [facility] Rx#:[id number] Sodium Chloride 0.9% 1, 400 000 ml @ 100 mls/hr IV . Q10H [facility] Rx#:[id number] Sodium Chloride 0.9% 1, 1200 100 000 ml @ 100 mls/hr IV . Q10H [facility] Rx#:[id number] Sodium Chloride 0.9% 1, 1000 000 ml @ 999 mls/hr IV . Q1H1M [facility] Rx#:[id number] Vancomycin 1,000 mg In 250 Sodium Chloride 0.9% 250 ml @ 125 mls/hr IVPB Q16H [facility] Rx#:[id number] Output: Urine 397 465 30 Stool 1 Other: Voiding Method Indwelling Catheter Indwelling Catheter - Constitutional General appearance: Present: average body habitus - EENT Eyes: Absent: abnormal pupil - Neck Neck: Absent: lymphadenopathy - Respiratory Respiratory: bilateral: CTA - Cardiovascular Rhythm: regular Heart sounds: normal: S1, S2 - Gastrointestinal General gastrointestinal: Present: soft. Absent: tenderness - Integumentary Integumentary: Absent: cellulitis - Neurologic Neurologic Comment(s): Residual related old CVA - Musculoskeletal Musculoskeletal: Present: right sided weakness - Labs CBC & Chem 7: 04/08/17 06:37 04/09/17 05:47 Labs: Abnormal Lab Results - Last 24 Hours (Table) 04/07/17 04/08/17 04/08/17 Range/Units 05:38 06:37 17:30 Chloride 117 H (98-107) mmol/L Carbon Dioxide 17 L (22-30) mmol/L BUN 29 H (9-20) mg/dL Glucose 121 H (74-99) mg/dL POC Glucose (mg/dL) 134 H (75-99) mg/dL Hemoglobin A1c 6.3 H (4.2-6.1) % Calcium 7.5 L (8.4-10.2) mg/dL Magnesium (1.6-2.3) mg/dL 04/08/17 04/09/17 04/09/17 Range/Units 21:06 05:47 07:26 Chloride 115 H (98-107) mmol/L Carbon Dioxide 17 L (22-30) mmol/L BUN 27 H (9-20) mg/dL Glucose (74-99) mg/dL POC Glucose (mg/dL) 116 H 103 H (75-99) mg/dL Hemoglobin A1c (4.2-6.1) % Calcium 7.5 L (8.4-10.2) mg/dL Magnesium 2.4 H (1.6-2.3) mg/dL Microbiology - Last 24 Hours (Table) 04/05/17 15:55 Blood Culture - Preliminary Blood No Growth after 72 hours 04/07/17 07:30 Urine Culture - Final Urine,Catheterized 04/07/17 08:15 Blood Culture - Preliminary Blood No Growth after 24 hours 04/07/17 07:40 Blood Culture - Preliminary Blood No Growth after 24 hours Assessment and Plan (1) CVA (cerebral vascular accident) Status: Acute (2) Closed left hip fracture Status: Acute Plan: At this point, surgery scheduled for later in the week related the fact that he needs to be off anticoagulation. We are not thinking new CVA at this point. He seems to be back to his baseline from the perspective of mentation and orientation. However, he has no recollection of his fall. Abdomen mildly's are noted. See orders otherwise. Hopefully, he can be transferred to selective or orthopedic floor.
[2017-04-09] MEDS: INSULIN LISPRO (humaLOG) 300 UNIT/3 ML VIAL SQ SCH ×4 (08:16→20:52)
[2017-04-09] MEDS ORDERED: ESOMEPRAZOLE 40 MG VIAL ONE (09:36)
[2017-04-09] MEDS: ESOMEPRAZOLE 20 MG in SODIUM CHLORIDE 0.9% 50 ML IVPB SCH (09:36)
[2017-04-09] MEDS: BISOPROLOL-HCTZ 10-6.25 MG 1 EACH TAB PO SCH (09:40)
[2017-04-09] MEDS: LISINOPRIL 20 MG TAB PO SCH (09:41)
--- NOTE | 2017-04-09 10:00 | P.PN ---
Subjective Principal diagnosis: Left hip fracture This is an 82-year-old male admitted for pneumonia, left hip fracture and possible CVA. Patient continues to be more alert. Patient still complains of pain to the left hip. Patient has no new complaints today. Objective - Vital Signs Vital signs: Vital Signs Temp 98.3 F 04/09/17 08:00 Pulse 95 04/09/17 09:00 Resp 19 04/09/17 09:00 BP 147/72 04/09/17 09:00 Pulse Ox 95 04/09/17 09:00 Intake & Output 04/08/17 04/09/17 04/09/17 18:59 06:59 18:59 Intake Total 2261 1200 595 Output Total 397 466 150 Balance 1864 734 445 Weight 77 kg 80.6 kg Intake: IV 500 Sodium Chloride 0.9% 1, 500 000 ml @ 100 mls/hr IV . Q10H [facility] Rx#:[id number] Intake, IV Titration 1761 1200 475 Amount Esomeprazole 20 mg In 50 Sodium Chloride 0.9% 50 ml @ 100 mls/hr IVPB DAILY [facility] Rx#:[id number] Norepinephrin 4 mg-0.9% 11 Ns Pmx 4 mg In 250 ml @ Titrate IV .Q0M [facility] Rx#: [id number] Potassium Chloride 10 meq 100 Lidocaine 2% Inj 10 mg In Sodium Chloride 0.9% 100 ml @ 100 mls/hr IV Q1HR [facility] Rx#:[id number] Sodium Chloride 0.9% 1, 400 000 ml @ 100 mls/hr IV . Q10H [facility] Rx#:[id number] Sodium Chloride 0.9% 1, 1200 300 000 ml @ 100 mls/hr IV . Q10H [facility] Rx#:[id number] Sodium Chloride 0.9% 1, 1000 000 ml @ 999 mls/hr IV . Q1H1M [facility] Rx#:[id number] Vancomycin 1,000 mg In 250 125 Sodium Chloride 0.9% 250 ml @ 125 mls/hr IVPB Q16H [facility] Rx#:[id number] Oral 120 Output: Urine 397 465 150 Stool 1 Other: Voiding Method Indwelling Catheter Indwelling Catheter - Exam Patient is in no acute distress and is answering questions clearly today. On inspection, the left lower extremity is shortened and externally rotated. Calf is soft and nontender. Dorsalis pedis pulses are 1+ bilaterally. Neurovascular status intact. - Labs CBC & Chem 7: 04/08/17 06:37 04/09/17 05:47 Labs: Abnormal Lab Results - Last 24 Hours (Table) 04/08/17 04/08/17 04/09/17 Range/Units 17:30 21:06 05:47 Chloride 115 H (98-107) mmol/L Carbon Dioxide 17 L (22-30) mmol/L BUN 27 H (9-20) mg/dL POC Glucose (mg/dL) 134 H 116 H (75-99) mg/dL Calcium 7.5 L (8.4-10.2) mg/dL Magnesium 2.4 H (1.6-2.3) mg/dL 04/09/17 Range/Units 07:26 Chloride (98-107) mmol/L Carbon Dioxide (22-30) mmol/L BUN (9-20) mg/dL POC Glucose (mg/dL) 103 H (75-99) mg/dL Calcium (8.4-10.2) mg/dL Magnesium (1.6-2.3) mg/dL Microbiology - Last 24 Hours (Table) 04/07/17 07:40 Blood Culture - Preliminary Blood No Growth after 48 hours 04/05/17 15:55 Blood Culture - Preliminary Blood No Growth after 72 hours 04/07/17 07:30 Urine Culture - Final Urine,Catheterized 04/07/17 08:15 Blood Culture - Preliminary Blood No Growth after 24 hours Assessment and Plan (1) Closed left hip fracture Status: Acute Plan: #1. Continue pain control and nonweightbearing status. #2. Left hemiarthroplasty is pending for Saturday if cleared medically. #3. Will continue to follow the patient closely.
[2017-04-09 10:01] LABS: Basophils % (A) 0 %; CH 29.1; CHCM 30.8; Eosinophils % (A) 0 %; HCT 40.2 % (39.0-53.0); HDW 2.45; HGB 12.6 gm/dL (13.0-17.5); Hypochromasia Slight; Luc % (Auto) 1; Lymphocytes # (A) 0.5 k/uL (1.0-4.8); Lymphocytes % (A) 3 %; MCH 29.9 pg (25.0-35.0); MCHC 31.3 g/dL (31.0-37.0); MCV 95.3 fL (80.0-100.0); Mean Platelet Volume 10.2; Monocytes # (A) 0.6 k/uL (0-1.0); Monocytes % (A) 3 %; Neutrophils # (A) 18.5 k/uL (1.3-7.7); Neutrophils % (A) 94 %; RBC 4.22 m/uL (4.30-5.90); RDW 14.1 % (11.5-15.5); WBC 19.7 k/uL (3.8-10.6); WBC (Perox) 20.52
[2017-04-09 10:37] VITALS: BMI 30.4
[2017-04-09] MEDS: amLODIPine 5 MG TAB PO SCH (12:23)
[2017-04-09 12:36] LABS: Glucose,Whole Blood 88 mg/dL (75-99)
--- NOTE | 2017-04-09 15:02 | P.PN ---
Subjective Principal diagnosis: CVA/TIA with left-sided weakness, left femur fracture This is a very pleasant 82-year-old gentleman who follows with Dr. Anderson as his primary care physician. 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 He had presented here on 04/05/2017 with concerns regarding possible recurrent CVA/TIA with this time left-sided weakness, confusion. His family felt he was getting confused and we consented help them to the bathroom and apparently the patient had fallen off the commode at some point. He was helped up into a chair and EMS was called. A computed tomography scan of the brain revealed no acute process. Carotid Dopplers revealed no significant stenosis. Chest x-ray showed cardiomegaly with basilar atelectasis. Venous Doppler was negative for DVT of the left. Left hip x-ray revealed suspected acute subcapital fracture of the left proximal femur and the plan was for surgical repair 04/08/2017. He was initially admitted to the regular medical floor. He subsequently developed abdominal distention possible small bowel obstruction. He became very short of breath and tachycardic and an a team was called. He was subsequently transferred here to the intensive care unit. He had been seen and evaluated yesterday by Dr. James. He is seen again today in follow-up. He is awake and alert in no acute distress. He has strong equal hand grasps. His speech does at times seems garbled and other times quite clear. He is maintaining good O2 saturations in the mid 90s on 3 L/m per nasal cannula. He is afebrile. He was on norepinephrine overnight however was turned off approximate 7:30 this morning and he is maintaining O2 mean arterial pressures greater than 60. His urine output has been borderline. Fluid boluses been initiated. He is status post 4 L of fluid resuscitation since admission. Peak WBC is 37 currently at 22.9. Peak lactic acid 4.8, currently 1.3. Renal function is improved currently 1.05 creatinine. Chest x-ray continues to show left basilar atelectasis/infiltrate. He is currently on vancomycin. Blood cultures reveal no growth to date. Urine and sputum cultures pending. The patient is seen again today 04/09/2017 in follow-up in the intensive care unit. He is more awake and alert today as compared to yesterday. He is oriented 3. He denies any shortness of breath, cough or congestion. He is maintaining good O2 saturations in the high 90s on 2 L/m per nasal cannula. He is afebrile. He's been hemodynamically stable. No chest pain, palpitations, lightheadedness or dizziness. He does have some left hip discomfort but currently the pain is well controlled. The plan is for repair of the left proximal femur fracture on 04/12/2017. His aspirin and Plavix remain on hold. Objective - Vital Signs Vital signs: Vital Signs Temp 98.2 F 04/09/17 12:00 Pulse 71 04/09/17 12:00 Resp 14 04/09/17 12:00 BP 134/56 04/09/17 12:00 Pulse Ox 98 04/09/17 12:00 Intake & Output 04/08/17 04/09/17 04/09/17 18:59 06:59 18:59 Intake Total 2261 1200 945 Output Total 397 466 512 Balance 1864 734 433 Weight 77 kg 80.6 kg 80.6 kg Intake: IV 500 Sodium Chloride 0.9% 1, 500 000 ml @ 100 mls/hr IV . Q10H [facility] Rx#:[id number] Intake, IV Titration 1761 1200 825 Amount Esomeprazole 20 mg In 50 Sodium Chloride 0.9% 50 ml @ 100 mls/hr IVPB DAILY [facility] Rx#:[id number] Norepinephrin 4 mg-0.9% 11 Ns Pmx 4 mg In 250 ml @ Titrate IV .Q0M [facility] Rx#: [id number] Potassium Chloride 10 meq 100 Lidocaine 2% Inj 10 mg In Sodium Chloride 0.9% 100 ml @ 100 mls/hr IV Q1HR [facility] Rx#:[id number] Sodium Chloride 0.9% 1, 400 000 ml @ 100 mls/hr IV . Q10H [facility] Rx#:[id number] Sodium Chloride 0.9% 1, 1200 650 000 ml @ 100 mls/hr IV . Q10H [facility] Rx#:[id number] Sodium Chloride 0.9% 1, 1000 000 ml @ 999 mls/hr IV . Q1H1M [facility] Rx#:[id number] Vancomycin 1,000 mg In 250 125 Sodium Chloride 0.9% 250 ml @ 125 mls/hr IVPB Q16H [facility] Rx#:[id number] Oral 120 Output: Urine 397 465 510 Stool 1 2 Other: Voiding Method Indwelling Catheter Indwelling Catheter Indwelling Catheter # Voids 5 - Exam GENERAL EXAM: Alert, fairly comfortable in no acute distress. EYES: Normal reaction of pupils, equal size. NOSE: Clear with pink turbinates. THROAT: No erythema or exudates. NECK: No masses, no JVD. CHEST: No chest wall deformity. LUNGS: Equal air entry with crackles in the left posterior base. CVS: S1 and S2 normal with no audible murmurs, regular rhythm. ABDOMEN: Slightly distended, normal bowel sounds, no guarding or rigidity. Extremities: He has bilateral hand grasps are equal and strong, able to move right lower extremity. Wiggling toes. Peripheral pulses are intact. No clubbing, no cyanosis. - Labs CBC & Chem 7: 04/09/17 05:47 04/09/17 05:47 Labs: Abnormal Lab Results - Last 24 Hours (Table) 04/08/17 04/08/17 04/09/17 Range/Units 17:30 21:06 05:47 WBC (3.8-10.6) k/uL RBC (4.30-5.90) m/uL Hgb (13.0-17.5) gm/dL Neutrophils # (1.3-7.7) k/uL Lymphocytes # (1.0-4.8) k/uL Chloride 115 H (98-107) mmol/L Carbon Dioxide 17 L (22-30) mmol/L BUN 27 H (9-20) mg/dL POC Glucose (mg/dL) 134 H 116 H (75-99) mg/dL Calcium 7.5 L (8.4-10.2) mg/dL Magnesium 2.4 H (1.6-2.3) mg/dL 04/09/17 04/09/17 Range/Units 05:47 07:26 WBC 19.7 H (3.8-10.6) k/uL RBC 4.22 L (4.30-5.90) m/uL Hgb 12.6 L (13.0-17.5) gm/dL Neutrophils # 18.5 H (1.3-7.7) k/uL Lymphocytes # 0.5 L (1.0-4.8) k/uL Chloride (98-107) mmol/L Carbon Dioxide (22-30) mmol/L BUN (9-20) mg/dL POC Glucose (mg/dL) 103 H (75-99) mg/dL Calcium (8.4-10.2) mg/dL Magnesium (1.6-2.3) mg/dL Microbiology - Last 24 Hours (Table) 04/07/17 08:15 Blood Culture - Preliminary Blood No Growth after 48 hours 04/07/17 07:40 Blood Culture - Preliminary Blood No Growth after 48 hours 04/05/17 15:55 Blood Culture - Preliminary Blood No Growth after 72 hours 04/07/17 07:30 Urine Culture - Final Urine,Catheterized Assessment and Plan Plan: Impression: #1 Altered mental status with left-sided weakness and suspected CVA/TIA. Improved. #2 Fall with trauma and fracture of the left proximal femur. Plan is for repair on 04/12/2017. Plavix and aspirin on hold. #3 Abdominal distention with suspected bowel obstruction, nasogastric tube in place. #4 Left lower lobe atelectasis/infiltrate with acute hypoxic respiratory failure initial P O2 75 on 40% FiO2. Recovered. #5 Leukocytosis with febrile illness of unclear etiology. #6 Sepsis with hypotension requiring norepinephrine. #7 Lactic acidosis, recovered #8 Previous history of CVA/TIA with residual right-sided weakness and aphasia. #9 History of hypertension. #10 Gastroesophageal reflux disease. #11 Osteoarthritis. #12 Poor overall functional performance based on the above-mentioned multiple comorbidities. Plan: The patient was seen and evaluated by Dr. Loza. He is stable from the pulmonary and critical care standpoint. We'll transfer him to the surgical floor with remote telemetry today. He is again educated regarding the use and importance of the incentive spirometer and cough and deep breathing exercises. We'll continue bronchodilators. We'll decrease his Solu-Cortef to 50 mg IV every 8 hours. He remains on heparin subcutaneous for DVT prophylaxis. We will repeat his chest x-ray in a.m. We'll continue to follow.
[2017-04-09 17:18] LABS: Glucose,Whole Blood 94 mg/dL (75-99)
[2017-04-09] MEDS: ATORVASTATIN 10 MG TAB PO SCH (20:45)
[2017-04-09 20:52] LABS: Glucose,Whole Blood 111 mg/dL (75-99)
[2017-04-09] MEDS ORDERED: VANCOMYCIN 1,250 MG in SODIUM CHLORIDE 0.9% 250 ML IVPB SCH (22:00)
[2017-04-10] MEDS: HYDROCORTISONE SUCCINATE 100 MG/2 ML VIAL IV SCH ×3 (00:08→16:36)
[2017-04-10] MEDS: HYDROmorphone 1 MG/ML 1 ML SYRINGE IVP PRN (03:41)
[2017-04-10 07:05] LABS: Glucose,Whole Blood 86 mg/dL (75-99)
[2017-04-10] MEDS: IPRATROPIUM-ALBUTEROL 3 ML NEB INHALATION SCH ×4 (07:47→20:55)
--- NOTE | 2017-04-10 08:06 | XR ---
EXAMINATION TYPE: XR chest 1V portable DATE OF EXAM: 04/10/2017 COMPARISON: 04/07/2017 HISTORY: Abnormal x-ray TECHNIQUE: Single frontal view of the chest is obtained. FINDINGS: Bibasilar subsegmental consolidation and tiny effusion. No pneumothorax. Arthropathy of th e shoulders. Heart size stable. IMPRESSION: Bibasilar atelectasis or infiltrate with tiny effusion correlate clinically. Findings ar e progressed from previous exam.
--- NOTE | 2017-04-10 08:24 | P.PN ---
Subjective Principal diagnosis: Hip fracture This is a continue present 82-year-old white male essentially admitted for CVA. Element of aspiration is noted with possible infiltrate. Pulmonology and neurology have been consulted. Element of TIA is also stated. He is having disorientation in the last 24 hours with pulling out IVs and Granados catheters. I suspect sundowning element. Objective - Vital Signs Vital signs: Vital Signs Temp 98.1 F 04/10/17 07:00 Pulse 76 04/10/17 08:10 Resp 16 04/10/17 07:00 BP 154/93 04/10/17 07:00 Pulse Ox 94 L 04/10/17 07:00 Intake & Output 04/09/17 04/10/17 04/10/17 18:59 06:59 18:59 Intake Total 1595 Output Total 1414 750 Balance 181 -750 Weight 80.6 kg Intake: Intake, IV Titration 875 Amount Esomeprazole 20 mg In 50 Sodium Chloride 0.9% 50 ml @ 100 mls/hr IVPB DAILY [facility] Rx#:[id number] Sodium Chloride 0.9% 1, 700 000 ml @ 50 mls/hr IV . Q20H [facility] Rx#:[id number] Vancomycin 1,000 mg In 125 Sodium Chloride 0.9% 250 ml @ 125 mls/hr IVPB Q16H [facility] Rx#:[id number] Oral 720 Output: Urine 1410 750 Stool 4 Other: Voiding Method Indwelling Catheter Indwelling Catheter # Voids 5 - Constitutional General appearance: Present: average body habitus - EENT Eyes: Absent: abnormal pupil - Respiratory Respiratory: bilateral: CTA - Cardiovascular Rhythm: regular Heart sounds: normal: S1, S2 Abnormal Heart Sounds: Absent: systolic murmur, S3 Gallop - Gastrointestinal General gastrointestinal: Present: soft. Absent: tenderness - Neurologic Neurologic Comment(s): right sided residual - Labs CBC & Chem 7: 04/09/17 05:47 04/09/17 05:47 Labs: Abnormal Lab Results - Last 24 Hours (Table) 04/09/17 04/09/17 Range/Units 05:47 20:50 WBC 19.7 H (3.8-10.6) k/uL RBC 4.22 L (4.30-5.90) m/uL Hgb 12.6 L (13.0-17.5) gm/dL Neutrophils # 18.5 H (1.3-7.7) k/uL Lymphocytes # 0.5 L (1.0-4.8) k/uL POC Glucose (mg/dL) 111 H (75-99) mg/dL Microbiology - Last 24 Hours (Table) 04/05/17 15:55 Blood Culture - Preliminary Blood No Growth after 96 hours 04/07/17 08:15 Blood Culture - Preliminary Blood No Growth after 48 hours 04/07/17 07:40 Blood Culture - Preliminary Blood No Growth after 48 hours Assessment and Plan (1) CVA (cerebral vascular accident) Status: Acute (2) Closed left hip fracture Status: Acute Plan: Essentially awaiting for anticoagulation clearance for this weekend to repair left hip fracture. We'll give benzodiazepine for agitation to see if this can calm him down. Prognosis is improving otherwise. Time with Patient: Less than 30
[2017-04-10] MEDS: BISOPROLOL-HCTZ 10-6.25 MG 1 EACH TAB PO SCH (08:28)
[2017-04-10] MEDS: amLODIPine 5 MG TAB PO SCH (08:28)
[2017-04-10] MEDS: LISINOPRIL 20 MG TAB PO SCH (08:28)
[2017-04-10] MEDS: HEPARIN SODIUM,PORCINE 5,000 UNIT/ML 1 ML VIAL SQ SCH ×2 (08:28→16:36)
[2017-04-10] MEDS: INSULIN LISPRO (humaLOG) 300 UNIT/3 ML VIAL SQ SCH ×4 (08:29→21:22)
[2017-04-10 08:30] LABS: CH 30.1; CHCM 32.6; HDW 2.58; HGB 12.5 gm/dL (13.0-17.5); MCHC 31.2 g/dL (31.0-37.0); MCV 92.7 fL (80.0-100.0); Mean Platelet Volume 9.2; RBC 4.31 m/uL (4.30-5.90); RDW 14.2 % (11.5-15.5); WBC 20.9 k/uL (3.8-10.6)
[2017-04-10] MEDS: ESOMEPRAZOLE 20 MG in SODIUM CHLORIDE 0.9% 50 ML IVPB SCH (08:35)
[2017-04-10] MEDS: LORazepam 2 MG/ML SYRINGE IV PRN (08:35)
[2017-04-10] MEDS ORDERED: ESOMEPRAZOLE 40 MG VIAL ONE (08:35)
[2017-04-10 08:49] LABS: ALT 40 U/L (21-72); AST 35 U/L (17-59); Alkaline Phosphatase 74 U/L (38-126); Anion Gap 5 mmol/L; Blood Urea Nitrogen 28 mg/dL (9-20); Calcium 7.6 mg/dL (8.4-10.2); Carbon Dioxide 21 mmol/L (22-30); Chloride 112 mmol/L (98-107); Glucose 74 mg/dL (74-99); Non-African American GFR(MDRD) >60 (>60 ml/min/1.73 sqM); Potassium 3.9 mmol/L (3.5-5.1); Sodium 138 mmol/L (137-145); Total Bilirubin 0.7 mg/dL (0.2-1.3); Total Protein 4.8 g/dL (6.3-8.2)
--- NOTE | 2017-04-10 08:51 | P.PN ---
Subjective Principal diagnosis: Left hip fracture This is an 82-year-old male admitted for pneumonia, left hip fracture and CVA. Patient states his left hip pain is tolerable and only hurts with movement. Patient is slightly more confused today. Patient has no new complaints today. Objective - Vital Signs Vital signs: Vital Signs Temp 98.1 F 04/10/17 07:00 Pulse 76 04/10/17 08:10 Resp 16 04/10/17 07:00 BP 154/93 04/10/17 07:00 Pulse Ox 94 L 04/10/17 07:00 Intake & Output 04/09/17 04/10/17 04/10/17 18:59 06:59 18:59 Intake Total 1595 Output Total 1414 750 Balance 181 -750 Weight 80.6 kg Intake: Intake, IV Titration 875 Amount Esomeprazole 20 mg In 50 Sodium Chloride 0.9% 50 ml @ 100 mls/hr IVPB DAILY [facility] Rx#:[id number] Sodium Chloride 0.9% 1, 700 000 ml @ 50 mls/hr IV . Q20H [facility] Rx#:[id number] Vancomycin 1,000 mg In 125 Sodium Chloride 0.9% 250 ml @ 125 mls/hr IVPB Q16H [facility] Rx#:[id number] Oral 720 Output: Urine 1410 750 Stool 4 Other: Voiding Method Indwelling Catheter Indwelling Catheter # Voids 5 - Exam Patient is in no acute distress. On inspection, the left lower extremity is shortened and externally rotated. Calf is soft and nontender. Dorsalis pedis pulses are 1+ bilaterally. Neurovascular status intact. - Labs CBC & Chem 7: 04/10/17 08:08 04/09/17 05:47 Labs: Abnormal Lab Results - Last 24 Hours (Table) 04/09/17 04/09/17 04/10/17 Range/Units 05:47 20:50 08:08 WBC 19.7 H 20.9 H (3.8-10.6) k/uL RBC 4.22 L (4.30-5.90) m/uL Hgb 12.6 L 12.5 L (13.0-17.5) gm/dL Neutrophils # 18.5 H (1.3-7.7) k/uL Lymphocytes # 0.5 L (1.0-4.8) k/uL POC Glucose (mg/dL) 111 H (75-99) mg/dL Microbiology - Last 24 Hours (Table) 04/05/17 15:55 Blood Culture - Preliminary Blood No Growth after 96 hours 04/07/17 08:15 Blood Culture - Preliminary Blood No Growth after 48 hours 04/07/17 07:40 Blood Culture - Preliminary Blood No Growth after 48 hours Assessment and Plan (1) Closed left hip fracture Status: Acute Plan: #1. Continue pain control and nonweightbearing status. #2. Left hemiarthroplasty is pending for Saturday if cleared medically. #3. Will continue to follow the patient closely.
[2017-04-10] MEDS: SODIUM CHLORIDE 0.9% 1,000 ML IV SCH (11:57)
[2017-04-10 12:33] LABS: Glucose,Whole Blood 89 mg/dL (75-99)
--- NOTE | 2017-04-10 15:04 | P.PN ---
Subjective Principal diagnosis: CVA/TIA with left-sided weakness, left femur fracture This is a very pleasant 82-year-old gentleman who follows with Dr. Anderson as his primary care physician. 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 He had presented here on 04/05/2017 with concerns regarding possible recurrent CVA/TIA with this time left-sided weakness, confusion. His family felt he was getting confused and we consented help them to the bathroom and apparently the patient had fallen off the commode at some point. He was helped up into a chair and EMS was called. A computed tomography scan of the brain revealed no acute process. Carotid Dopplers revealed no significant stenosis. Chest x-ray showed cardiomegaly with basilar atelectasis. Venous Doppler was negative for DVT of the left. Left hip x-ray revealed suspected acute subcapital fracture of the left proximal femur and the plan was for surgical repair 04/08/2017. He was initially admitted to the regular medical floor. He subsequently developed abdominal distention possible small bowel obstruction. He became very short of breath and tachycardic and an a team was called. He was subsequently transferred here to the intensive care unit. He had been seen and evaluated yesterday by Dr. James. He is seen again today in follow-up. He is awake and alert in no acute distress. He has strong equal hand grasps. His speech does at times seems garbled and other times quite clear. He is maintaining good O2 saturations in the mid 90s on 3 L/m per nasal cannula. He is afebrile. He was on norepinephrine overnight however was turned off approximate 7:30 this morning and he is maintaining O2 mean arterial pressures greater than 60. His urine output has been borderline. Fluid boluses been initiated. He is status post 4 L of fluid resuscitation since admission. Peak WBC is 37 currently at 22.9. Peak lactic acid 4.8, currently 1.3. Renal function is improved currently 1.05 creatinine. Chest x-ray continues to show left basilar atelectasis/infiltrate. He is currently on vancomycin. Blood cultures reveal no growth to date. Urine and sputum cultures pending. The patient is seen again today 04/09/2017 in follow-up in the intensive care unit. He is more awake and alert today as compared to yesterday. He is oriented 3. He denies any shortness of breath, cough or congestion. He is maintaining good O2 saturations in the high 90s on 2 L/m per nasal cannula. He is afebrile. He's been hemodynamically stable. No chest pain, palpitations, lightheadedness or dizziness. He does have some left hip discomfort but currently the pain is well controlled. The plan is for repair of the left proximal femur fracture on 04/12/2017. His aspirin and Plavix remain on hold. She is seen again today 04/10/2017 in follow-up on the regular medical floor. He has continued and ongoing issues with altered mental status. He was quite confused last evening. A sitter is at the bedside. He has no complaints of shortness of breath, cough or congestion. His maintaining good O2 saturations in the mid 90s on room air. He's been afebrile. Hemodynamically stable. The plan is for left hip arthroplasty on 04/12/2017. Objective - Vital Signs Vital signs: Vital Signs Temp 98.1 F 04/10/17 07:00 Pulse 76 04/10/17 08:10 Resp 16 04/10/17 08:00 BP 154/93 04/10/17 07:00 Pulse Ox 94 L 04/10/17 07:00 Intake & Output 04/09/17 04/10/17 04/10/17 18:59 06:59 18:59 Intake Total 1595 Output Total 1414 750 Balance 181 -750 Weight 80.6 kg Intake: Intake, IV Titration 875 Amount Esomeprazole 20 mg In 50 Sodium Chloride 0.9% 50 ml @ 100 mls/hr IVPB DAILY [facility] Rx#:[id number] Sodium Chloride 0.9% 1, 700 000 ml @ 50 mls/hr IV . Q20H [facility] Rx#:[id number] Vancomycin 1,000 mg In 125 Sodium Chloride 0.9% 250 ml @ 125 mls/hr IVPB Q16H [facility] Rx#:[id number] Oral 720 Output: Urine 1410 750 Stool 4 Other: Voiding Method Indwelling Catheter Indwelling Catheter Indwelling Catheter # Voids 5 - Exam GENERAL EXAM: Alert, fairly comfortable in no acute distress. EYES: Normal reaction of pupils, equal size. NOSE: Clear with pink turbinates. THROAT: No erythema or exudates. NECK: No masses, no JVD. CHEST: No chest wall deformity. LUNGS: Equal air entry with crackles in the left posterior base. CVS: S1 and S2 normal with no audible murmurs, regular rhythm. ABDOMEN: Slightly distended, normal bowel sounds, no guarding or rigidity. Extremities: He has bilateral hand grasps are equal and strong, able to move right lower extremity. Wiggling toes. Peripheral pulses are intact. No clubbing, no cyanosis. - Labs CBC & Chem 7: 04/10/17 08:08 04/10/17 08:08 Labs: Abnormal Lab Results - Last 24 Hours (Table) 04/09/17 04/10/17 04/10/17 Range/Units 20:50 08:08 08:08 WBC 20.9 H (3.8-10.6) k/uL Hgb 12.5 L (13.0-17.5) gm/dL Chloride 112 H (98-107) mmol/L Carbon Dioxide 21 L (22-30) mmol/L BUN 28 H (9-20) mg/dL POC Glucose (mg/dL) 111 H (75-99) mg/dL Calcium 7.6 L (8.4-10.2) mg/dL Total Protein 4.8 L (6.3-8.2) g/dL Albumin 2.6 L (3.5-5.0) g/dL Microbiology - Last 24 Hours (Table) 04/07/17 08:15 Blood Culture - Preliminary Blood No Growth after 72 hours 04/07/17 07:40 Blood Culture - Preliminary Blood No Growth after 72 hours 04/05/17 15:55 Blood Culture - Preliminary Blood No Growth after 96 hours Assessment and Plan Plan: Impression: #1 Altered mental status with left-sided weakness and suspected CVA/TIA. #2 Fall with trauma and fracture of the left proximal femur. Plan is for repair on 04/12/2017. Plavix and aspirin on hold. #3 Abdominal distention with suspected bowel obstruction, nasogastric tube in place. #4 Left lower lobe atelectasis/infiltrate with acute hypoxic respiratory failure initial P O2 75 on 40% FiO2. Recovered. #5 Leukocytosis with febrile illness of unclear etiology. #6 Sepsis with hypotension requiring norepinephrine. #7 Lactic acidosis, recovered #8 Previous history of CVA/TIA with residual right-sided weakness and aphasia. #9 History of hypertension. #10 Gastroesophageal reflux disease. #11 Osteoarthritis. #12 Poor overall functional performance based on the above-mentioned multiple comorbidities. Plan: The patient was seen and evaluated by Dr. Loza. He is again educated regarding the use and importance of the incentive spirometer and cough and deep breathing exercises. We'll continue bronchodilators. He remains on heparin subcutaneous for DVT prophylaxis. We will repeat his chest x-ray in a.m. We' ll continue to follow.
[2017-04-10 17:05] LABS: Glucose,Whole Blood 84 mg/dL (75-99)
[2017-04-10 21:15] LABS: Glucose,Whole Blood 90 mg/dL (75-99)
[2017-04-10] MEDS: ATORVASTATIN 10 MG TAB PO SCH (21:22)
[2017-04-11] MEDS: HYDROCORTISONE SUCCINATE 100 MG/2 ML VIAL IV SCH ×4 (00:22→23:42)
[2017-04-11] MEDS: HEPARIN SODIUM,PORCINE 5,000 UNIT/ML 1 ML VIAL SQ SCH ×3 (00:22→16:36)
[2017-04-11] MEDS: SODIUM CHLORIDE 0.9% 1,000 ML IV SCH (06:33)
[2017-04-11] MEDS: IPRATROPIUM-ALBUTEROL 3 ML NEB INHALATION SCH ×4 (07:10→19:52)
[2017-04-11 07:16] LABS: Glucose,Whole Blood 81 mg/dL (75-99)
[2017-04-11] MEDS: amLODIPine 5 MG TAB PO SCH (08:43)
[2017-04-11] MEDS: PANTOPRAZOLE 40 MG TABLET PO SCH (08:43)
[2017-04-11] MEDS: BISOPROLOL-HCTZ 10-6.25 MG 1 EACH TAB PO SCH (08:43)
[2017-04-11] MEDS: LISINOPRIL 20 MG TAB PO SCH (08:43)
[2017-04-11] MEDS: INSULIN LISPRO (humaLOG) 300 UNIT/3 ML VIAL SQ SCH ×4 (08:43→20:57)
--- NOTE | 2017-04-11 08:44 | P.PN ---
Subjective Principal diagnosis: Hip fracture This is a continue present 82-year-old white male essentially admitted for CVA. Element of aspiration is noted with possible infiltrate. Pulmonology and neurology have been consulted. Element of TIA is also stated. He is having disorientation in the last 24 hours with pulling out IVs and Granados catheters. I suspect sundowning element. Objective - Vital Signs Vital signs: Vital Signs Temp 96.6 F L 04/11/17 07:00 Pulse 80 04/11/17 07:24 Resp 18 04/11/17 07:00 BP 183/84 04/11/17 07:00 Pulse Ox 96 04/11/17 07:12 Intake & Output 04/10/17 04/11/17 04/11/17 18:59 06:59 18:59 Intake Total 50 Output Total 600 400 Balance -600 -350 Intake: Intake, IV Titration 50 Amount Sodium Chloride 0.9% 1, 50 000 ml @ 50 mls/hr IV . Q20H [facility] Rx#:[id number] Output: Urine 600 400 Other: Voiding Method Indwelling Catheter Indwelling Catheter # Voids 0 # Bowel Movements 0 - Constitutional General appearance: Present: average body habitus - EENT Eyes: Absent: abnormal pupil - Respiratory Respiratory: bilateral: CTA - Cardiovascular Rhythm: regular Heart sounds: normal: S1, S2 - Gastrointestinal General gastrointestinal: Present: soft. Absent: tenderness - Labs CBC & Chem 7: 04/10/17 08:08 04/10/17 08:08 Labs: Abnormal Lab Results - Last 24 Hours (Table) 04/10/17 Range/Units 08:08 Chloride 112 H (98-107) mmol/L Carbon Dioxide 21 L (22-30) mmol/L BUN 28 H (9-20) mg/dL Calcium 7.6 L (8.4-10.2) mg/dL Total Protein 4.8 L (6.3-8.2) g/dL Albumin 2.6 L (3.5-5.0) g/dL Microbiology - Last 24 Hours (Table) 04/05/17 15:55 Blood Culture - Preliminary Blood No Growth after 120 hours 04/07/17 08:15 Blood Culture - Preliminary Blood No Growth after 72 hours 04/07/17 07:40 Blood Culture - Preliminary Blood No Growth after 72 hours Assessment and Plan (1) CVA (cerebral vascular accident) Status: Acute (2) Closed left hip fracture Status: Acute Plan: Continue current regimen of treatment. Check CBC and CMP in a.m. Anticipate hip repair in the next 48 hours.
--- NOTE | 2017-04-11 09:11 | XR ---
EXAMINATION TYPE: XR chest 1V portable DATE OF EXAM: 04/11/2017 COMPARISON: 04/10/2017 HISTORY: Abnormal x-ray, fever, pneumonia TECHNIQUE: Single frontal view of the chest is obtained. FINDINGS: Bilateral subsegmental infiltrate is stable. Limited inspiration. No pneumothorax or overt failure. IMPRESSION: 1. Bilateral subsegmental atelectasis or infiltrate is stable.
[2017-04-11 09:44] LABS: Anion Gap 7 mmol/L; Blood Urea Nitrogen 34 mg/dL (9-20); Calcium 7.8 mg/dL (8.4-10.2); Carbon Dioxide 20 mmol/L (22-30); Chloride 113 mmol/L (98-107); Glucose 92 mg/dL (74-99); Non-African American GFR(MDRD) >60 (>60 ml/min/1.73 sqM); Potassium 3.9 mmol/L (3.5-5.1); Sodium 140 mmol/L (137-145)
--- NOTE | 2017-04-11 09:59 | P.PN ---
Subjective Principal diagnosis: Left hip fracture This is an 82-year-old male admitted for pneumonia, left hip fracture and CVA. Patient is resting comfortably in bed. Patient has no new complaints today. Objective - Vital Signs Vital signs: Vital Signs Temp 96.6 F L 04/11/17 07:00 Pulse 80 04/11/17 07:24 Resp 18 04/11/17 07:00 BP 183/84 04/11/17 07:00 Pulse Ox 96 04/11/17 07:12 Intake & Output 04/10/17 04/11/17 04/11/17 18:59 06:59 18:59 Intake Total 50 Output Total 600 400 Balance -600 -350 Intake: Intake, IV Titration 50 Amount Sodium Chloride 0.9% 1, 50 000 ml @ 50 mls/hr IV . Q20H [facility] Rx#:[id number] Output: Urine 600 400 Other: Voiding Method Indwelling Catheter Indwelling Catheter # Voids 0 # Bowel Movements 0 - Exam Patient is in no acute distress. On inspection, the left lower extremity is shortened and externally rotated. Calf is soft and nontender. Dorsalis pedis pulses are 1+ bilaterally. Patient has full foot and ankle motion. Neurovascular status intact. - Labs CBC & Chem 7: 04/10/17 08:08 04/11/17 07:37 Labs: Abnormal Lab Results - Last 24 Hours (Table) 04/11/17 Range/Units 07:37 Chloride 113 H (98-107) mmol/L Carbon Dioxide 20 L (22-30) mmol/L BUN 34 H (9-20) mg/dL Calcium 7.8 L (8.4-10.2) mg/dL Microbiology - Last 24 Hours (Table) 04/07/17 07:40 Blood Culture - Preliminary Blood No Growth after 96 hours 04/05/17 15:55 Blood Culture - Preliminary Blood No Growth after 120 hours 04/07/17 08:15 Blood Culture - Preliminary Blood No Growth after 72 hours Assessment and Plan (1) Closed left hip fracture Status: Acute Plan: #1. Continue pain control and nonweightbearing status. #2. Left hemiarthroplasty is pending for Saturday04/12/2017 if cleared medically. #3. Patient is to be NPO after midnight tonight. #3. Will continue to follow the patient closely.
--- NOTE | 2017-04-11 10:24 | CDI ---
In responding to this query, please exercise your independent professional judgment. The [facility] Coding Staff and Clinical Documentation Specialists appreciate your assistance in clarifying documentation, maintaining compliance with coding guidelines, accurately documenting patients condition and capturing severity of illness. The fact that a question is asked does not imply that any particular answer is desired or expected. Communication forms are a method of clarifying documentation and are not made part of the Legal Health Record. Thank you in advance for your clarification. Last Revision, July 2015 July Swan [address] [facility] [facility] [place] [address] Documentation Clarification Form Date: 04/11/2017 9:15:00 AM From: Mikala Clemens Admit Date: 04/05/2017 7:00:00 PM Patient Name: Franco Hill Visit Number: [id number] Discharge Date: Dr. Errol Loza/Pat Breaux [employer] Sepsis with hypotension requiring norepinephrine is documented in your ongoing progress notes starting on 04/08/17 Patient history/risk factors: CVA/TIA, Hypertension GERD, Clinical Indicators: Nursing notes on 04/07/17 has patient with emesis around 3 am started to have a drop in O2 sat 89-90 % on 2/L NC. Lungs with wheezes and rhonchi, Short of breath tachypnea Lab findings: WBC 37.3, Lactic acid 4.8, 2.7 CXR: 04/07/17: Left basilar atelectasis and or infiltrates likely present more conspicuous on this study. Vital Signs: 04/07/17: 83/57 125 16 98.4 (AX) 96 % 3/L Other Clinical Indicators: Attending: Element of aspiration is noted with possible infiltrate. Orthopedic Consult: Patient with Pneumonia, left hip fracture and possible CVA Treatment: Duoneb's Solu-corter IV Rocephin IV (now dc) Levophed (titrate) IV Fluid bolus Vancomycin IV ( now dc) In your professional opinion, can you please clarify Sepsis with hypotension? With: Septic Shock Other (Specify) Unable to determine Please document in your progress notes in order to capture severity of illness and risk of mortality. Include clinical findings that support your diagnosis. FYI: Press F11 to launch patient chart. Place X here if this finding has no clinical significance, is not applicable or if you are not able to provide any additional documentation. MTDD
[2017-04-11 12:30] LABS: Glucose,Whole Blood 144 mg/dL (75-99)
--- NOTE | 2017-04-11 14:15 | P.PN ---
Subjective Principal diagnosis: CVA/TIA with left-sided weakness, left femur fracture This is a very pleasant 82-year-old gentleman who follows with Dr. Anderson as his primary care physician. 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 He had presented here on 04/05/2017 with concerns regarding possible recurrent CVA/TIA with this time left-sided weakness, confusion. His family felt he was getting confused and we consented help them to the bathroom and apparently the patient had fallen off the commode at some point. He was helped up into a chair and EMS was called. A computed tomography scan of the brain revealed no acute process. Carotid Dopplers revealed no significant stenosis. Chest x-ray showed cardiomegaly with basilar atelectasis. Venous Doppler was negative for DVT of the left. Left hip x-ray revealed suspected acute subcapital fracture of the left proximal femur and the plan was for surgical repair 04/08/2017. He was initially admitted to the regular medical floor. He subsequently developed abdominal distention possible small bowel obstruction. He became very short of breath and tachycardic and an a team was called. He was subsequently transferred here to the intensive care unit. He had been seen and evaluated yesterday by Dr. James. He is seen again today in follow-up. He is awake and alert in no acute distress. He has strong equal hand grasps. His speech does at times seems garbled and other times quite clear. He is maintaining good O2 saturations in the mid 90s on 3 L/m per nasal cannula. He is afebrile. He was on norepinephrine overnight however was turned off approximate 7:30 this morning and he is maintaining O2 mean arterial pressures greater than 60. His urine output has been borderline. Fluid boluses been initiated. He is status post 4 L of fluid resuscitation since admission. Peak WBC is 37 currently at 22.9. Peak lactic acid 4.8, currently 1.3. Renal function is improved currently 1.05 creatinine. Chest x-ray continues to show left basilar atelectasis/infiltrate. He is currently on vancomycin. Blood cultures reveal no growth to date. Urine and sputum cultures pending. The patient is seen again today 04/09/2017 in follow-up in the intensive care unit. He is more awake and alert today as compared to yesterday. He is oriented 3. He denies any shortness of breath, cough or congestion. He is maintaining good O2 saturations in the high 90s on 2 L/m per nasal cannula. He is afebrile. He's been hemodynamically stable. No chest pain, palpitations, lightheadedness or dizziness. He does have some left hip discomfort but currently the pain is well controlled. The plan is for repair of the left proximal femur fracture on 04/12/2017. His aspirin and Plavix remain on hold. He is seen again today 04/10/2017 in follow-up on the regular medical floor. He has continued and ongoing issues with altered mental status. He was quite confused last evening. A sitter is at the bedside. He has no complaints of shortness of breath, cough or congestion. His maintaining good O2 saturations in the mid 90s on room air. He's been afebrile. Hemodynamically stable. The plan is for left hip arthroplasty on 04/12/2017. The patient is seen again today 04/11/2017 in follow-up on the regular medical floor. He is more awake and alert today as compared to yesterday. He is still having issues with altered mental status and occasional confusion however these things were happening prior to his admission according to the . His blood cultures reveal no growth to date. He denies any worsening shortness of breath , cough or congestion. He is maintaining O2 saturations in the low 90s on room air. He's been hemodynamically stable. Afebrile. Chest x-ray reveals stable bilateral subsegmental atelectasis. Objective - Vital Signs Vital signs: Vital Signs Temp 96.6 F L 04/11/17 07:00 Pulse 76 04/11/17 12:19 Resp 18 04/11/17 08:00 BP 165/77 04/11/17 09:59 Pulse Ox 96 04/11/17 07:12 Intake & Output 04/10/17 04/11/17 04/11/17 18:59 06:59 18:59 Intake Total 50 Output Total 600 400 1 Balance -600 -350 -1 Intake: Intake, IV Titration 50 Amount Sodium Chloride 0.9% 1, 50 000 ml @ 50 mls/hr IV . Q20H [facility] Rx#:[id number] Output: Urine 600 400 Stool 1 Other: Voiding Method Indwelling Catheter Indwelling Catheter Indwelling Catheter # Voids 0 # Bowel Movements 0 - Exam GENERAL EXAM: Alert, fairly comfortable in no acute distress. EYES: Normal reaction of pupils, equal size. NOSE: Clear with pink turbinates. THROAT: No erythema or exudates. NECK: No masses, no JVD. CHEST: No chest wall deformity. LUNGS: Equal air entry with crackles in the left posterior base. CVS: S1 and S2 normal with no audible murmurs, regular rhythm. ABDOMEN: Slightly distended, normal bowel sounds, no guarding or rigidity. Extremities: He has bilateral hand grasps are equal and strong, able to move right lower extremity. Wiggling toes. Peripheral pulses are intact. No clubbing, no cyanosis. - Labs CBC & Chem 7: 04/10/17 08:08 04/11/17 07:37 Labs: Abnormal Lab Results - Last 24 Hours (Table) 04/11/17 04/11/17 Range/Units 07:37 12:22 Chloride 113 H (98-107) mmol/L Carbon Dioxide 20 L (22-30) mmol/L BUN 34 H (9-20) mg/dL POC Glucose (mg/dL) 144 H (75-99) mg/dL Calcium 7.8 L (8.4-10.2) mg/dL Microbiology - Last 24 Hours (Table) 04/07/17 08:15 Blood Culture - Preliminary Blood No Growth after 96 hours 04/07/17 07:40 Blood Culture - Preliminary Blood No Growth after 96 hours 04/05/17 15:55 Blood Culture - Preliminary Blood No Growth after 120 hours Assessment and Plan Plan: Impression: #1 Altered mental status with left-sided weakness and suspected CVA/TIA. #2 Fall with trauma and fracture of the left proximal femur. Plan is for repair on 04/12/2017. Plavix and aspirin on hold. #3 Abdominal distention with suspected bowel obstruction, nasogastric tube in place. #4 Left lower lobe atelectasis/infiltrate with acute hypoxic respiratory failure initial P O2 75 on 40% FiO2. Recovered. #5 Leukocytosis with febrile illness of unclear etiology. #6 Sepsis with septic shock and hypotension requiring norepinephrine. #7 Lactic acidosis, recovered #8 Previous history of CVA/TIA with residual right-sided weakness and aphasia. #9 History of hypertension. #10 Gastroesophageal reflux disease. #11 Osteoarthritis. #12 Poor overall functional performance based on the above-mentioned multiple comorbidities. Plan: The patient was seen and evaluated by Dr. Loza. His chest x-ray and labs were reviewed. The patient is stable from the pulmonary standpoint. The plan is for left hip arthroplasty in the a.m. He is again educated regarding the use and importance of the incentive spirometer and cough and deep breathing exercises. We'll continue bronchodilators. He remains on heparin subcutaneous for DVT prophylaxis. We'll continue to follow.
[2017-04-11] MEDS: BACITRACIN 500 UNIT/GM OINT 28.4 GM TUBE TOPICAL SCH ×2 (16:40→20:58)
[2017-04-11 17:21] LABS: Glucose,Whole Blood 124 mg/dL (75-99)
[2017-04-11 20:49] LABS: Glucose,Whole Blood 171 mg/dL (75-99)
[2017-04-11] MEDS: ATORVASTATIN 10 MG TAB PO SCH (20:58)
[2017-04-11] MEDS: HYDROmorphone 1 MG/ML 1 ML SYRINGE IVP PRN (23:34)
[2017-04-12] MEDS: SODIUM CHLORIDE 0.9% 1,000 ML IV SCH ×2 (06:26→23:24)
[2017-04-12 07:29] LABS: Glucose,Whole Blood 119 mg/dL (75-99)
[2017-04-12] MEDS: INSULIN LISPRO (humaLOG) 300 UNIT/3 ML VIAL SQ SCH ×4 (07:45→21:04)
--- NOTE | 2017-04-12 08:23 | P.PN ---
Subjective Principal diagnosis: Femoral fracture. Continuing care. This is a continue pressure 82-year-old white male essentially admitted for status post fall with element of TIA. Left lower lobe atelectasis is noted. He is been cleared from pulmonary standpoint and is pending appropriate left hip repair. No sniffing chest pain or shortness of breath. No nausea, vomiting or diarrhea is stated. He still seems to have somewhat of a slurry speech. No sleep complaints. Objective - Vital Signs Vital signs: Vital Signs Temp 97.4 F L 04/12/17 07:00 Pulse 75 04/12/17 07:00 Resp 18 04/12/17 07:00 BP 157/78 04/12/17 07:00 Pulse Ox 93 L 04/12/17 07:00 Intake & Output 04/11/17 04/12/17 04/12/17 18:59 06:59 18:59 Output Total 751 1250 Balance -751 -1250 Output: Urine 750 1250 Stool 1 Other: Voiding Method Indwelling Catheter Indwelling Catheter # Voids 0 # Bowel Movements 1 - Constitutional General appearance: Present: average body habitus - EENT Eyes: Absent: abnormal pupil - Neck Neck: Absent: lymphadenopathy - Respiratory Respiratory: bilateral: CTA - Cardiovascular Rhythm: regular Heart sounds: normal: S1, S2 - Gastrointestinal General gastrointestinal: Present: soft. Absent: tenderness - Neurologic Neurologic: Present: CNII-XII intact - Labs CBC & Chem 7: 04/10/17 08:08 04/11/17 07:37 Labs: Abnormal Lab Results - Last 24 Hours (Table) 04/11/17 04/11/17 04/11/17 Range/Units 07:37 12:22 17:18 Chloride 113 H (98-107) mmol/L Carbon Dioxide 20 L (22-30) mmol/L BUN 34 H (9-20) mg/dL POC Glucose (mg/dL) 144 H 124 H (75-99) mg/dL Calcium 7.8 L (8.4-10.2) mg/dL 04/11/17 04/12/17 Range/Units 20:48 07:26 Chloride (98-107) mmol/L Carbon Dioxide (22-30) mmol/L BUN (9-20) mg/dL POC Glucose (mg/dL) 171 H 119 H (75-99) mg/dL Calcium (8.4-10.2) mg/dL Microbiology - Last 24 Hours (Table) 04/05/17 15:55 Blood Culture - Final Blood No Growth after 144 hours 04/07/17 08:15 Blood Culture - Preliminary Blood No Growth after 96 hours 04/07/17 07:40 Blood Culture - Preliminary Blood No Growth after 96 hours Assessment and Plan (1) CVA (cerebral vascular accident) Status: Acute (2) Closed left hip fracture Status: Acute Plan: Await orthopedic repair. Laboratories this morning are pending. We'll continue to follow. Dr. Hunt's group will be covering for the weekend
[2017-04-12] MEDS: BISOPROLOL-HCTZ 10-6.25 MG 1 EACH TAB PO SCH (09:00)
[2017-04-12] MEDS: HYDROCORTISONE SUCCINATE 100 MG/2 ML VIAL IV SCH ×3 (09:00→23:23)
[2017-04-12] MEDS: LISINOPRIL 20 MG TAB PO SCH (09:00)
[2017-04-12] MEDS: PANTOPRAZOLE 40 MG TABLET PO SCH (09:00)
[2017-04-12] MEDS: amLODIPine 5 MG TAB PO SCH (09:00)
[2017-04-12] MEDS: IPRATROPIUM-ALBUTEROL 3 ML NEB INHALATION SCH ×4 (09:21→20:36)
[2017-04-12 09:22] LABS: CH 30.5; CHCM 33.3; HCT 36.4 % (39.0-53.0); HDW 2.61; MCH 30.3 pg (25.0-35.0); MCHC 32.9 g/dL (31.0-37.0); MCV 92.3 fL (80.0-100.0); Mean Platelet Volume 10.1; RBC 3.95 m/uL (4.30-5.90); RDW 14.7 % (11.5-15.5); WBC 13.8 k/uL (3.8-10.6)
[2017-04-12 09:32] LABS: ALT 57 U/L (21-72); AST 36 U/L (17-59); Alkaline Phosphatase 68 U/L (38-126); Anion Gap 6 mmol/L; Blood Urea Nitrogen 28 mg/dL (9-20); Calcium 7.6 mg/dL (8.4-10.2); Carbon Dioxide 23 mmol/L (22-30); Chloride 110 mmol/L (98-107); Glucose 102 mg/dL (74-99); Non-African American GFR(MDRD) >60 (>60 ml/min/1.73 sqM); Potassium 3.1 mmol/L (3.5-5.1); Sodium 139 mmol/L (137-145); Total Bilirubin 0.5 mg/dL (0.2-1.3); Total Protein 4.4 g/dL (6.3-8.2)
[2017-04-12 10:52] LABS: Glucose,Whole Blood 102 mg/dL (75-99)
[2017-04-12] MEDS ORDERED: IV FLUID CONTINUATION 1,000 ML IV ONE (11:07)
[2017-04-12] MEDS ORDERED: LACTATED RINGERS 1,000 ML IV ONE (11:35)
[2017-04-12] MEDS ORDERED: MIDAZOLAM 2 MG/2 ML VIAL ONE (12:03)
[2017-04-12] MEDS ORDERED: KETAMINE 10 MG/ML 20 ML VIAL ONE (12:03)
[2017-04-12] MEDS ORDERED: ceFAZolin 2 GM in SODIUM CHLORIDE 0.9% 100 ML IVPB ONE (12:05)
[2017-04-12] MEDS ORDERED: hydrOXYzine PAMOATE 25 MG CAP PO PRN (12:13)
[2017-04-12] MEDS ORDERED: MAGNESIUM HYDROXIDE 2,400 MG/10 ML CUP PO PRN (12:13)
[2017-04-12] MEDS ORDERED: DIAZEPAM 5 MG TAB PO PRN ×2 (12:13)
[2017-04-12] MEDS ORDERED: HYDROmorphone 1 MG/ML 1 ML SYRINGE IVP PRN ×3 (12:13)
[2017-04-12] MEDS ORDERED: HYDROcodone/APAP 5-325MG 1 EACH TAB PO PRN ×2 (12:13)
[2017-04-12] MEDS ORDERED: NALOXONE 0.4 MG/ML 1 ML VIAL IV PRN (12:13)
[2017-04-12] MEDS ORDERED: ceFAZolin 3,000 MG in SODIUM CHLORIDE 0.9% IRRIGATIO 3,000 ML IRRIGATION ONE (12:47)
[2017-04-12] MEDS: HYDROmorphone 1 MG/ML 1 ML SYRINGE IVP ONE ×4 (13:49→14:07)
[2017-04-12 13:59] LABS: Glucose,Whole Blood 123 mg/dL (75-99)
--- NOTE | 2017-04-12 14:22 | XR ---
EXAMINATION TYPE: XR Hip Limited LT DATE OF EXAM: 04/12/2017 CLINICAL HISTORY: Postoperative evaluation TECHNIQUE: Single portable view of the left hip was submitted. FINDINGS: Noted are changes of hip arthroplasty with femoral components appearing well seated. Align ment is anatomic. Postsurgical soft tissue changes are evident. IMPRESSION: Satisfactory postoperative alignment
[2017-04-12] MEDS: BACITRACIN 500 UNIT/GM OINT 28.4 GM TUBE TOPICAL SCH ×2 (15:19→21:03)
--- NOTE | 2017-04-12 16:19 | P.OP ---
Date of Procedure: 04/12/17 Preoperative Diagnosis: Subcapital fracture Left hip. Postoperative Diagnosis: Subcapital fracture Left hip Procedure(s) Performed: Left hip hemiarthroplasty Implants: Fink and nephew Polarstem size 3 standard Fink & Nephew tandem unipolar, 49 mm Fink & Nephew tandem unipolar 12/14 taper sleeve, +0 mm All components were press-fit. Anesthesia: spinal Surgeon: Adonis Reveles Boiler Water Tester #1: Tatiana Burt Estimated Blood Loss (ml): 50 Pathology: other (Femoral head) Condition: stable Disposition: PACU Indications for Procedure: This is an 82-year-old gentleman sustained a fall at home proximally 1-2 weeks ago. He originally was quite sick and presented the emergency room and was admitted to the intensive care unit for multiple days. He was found to have a subcapital fracture of his left hip. Now that he has been cleared medically, he wishes to proceed with a left hip hemiarthroplasty and informed consent was obtained. Operative Findings: The operative findings are consistent with a subcapital fracture of the left hip. Description of Procedure: Patient was seen and evaluated in the preoperative area, consent was reviewed and the operative site was marked with a skin marker. Patient was then brought to the operating room and given 2 g of Ancef intravenously. A spinal anesthetic was administered by the anesthesia department. Patient was then placed in a lateral decubitus position and held with a Montral hip positioner. The bony prominences were well-padded and an axillary roll was placed. The hip was then prepped and draped in the usual sterile fashion. A universal timeout was then performed which confirmed the patient's name, surgical site, ALLERGIES, and procedure. A standard anterolateral approach the hip was performed. Skin and subcutaneous tissues were sharply incised with an incision centered over the tip of the greater trochanter. The incision was carefully dissected down to the fascia. The fascia was then split in line with skin incision and a Charnley retractor was gently placed. The abductors were then identified, and the anterior one third of the abductors were released off the trochanter and one large sleeve. The fracture hematoma was evacuated and the proximal femur was exposed by externally rotating the femur. The fracture site was readily visualized. Next , using an osteotomy guide, the proximal femur was osteotomized at the appropriate level of the above the lesser trochanter. This bone was then removed. Attention was then turned to the femoral head. Using a corkscrew, the femoral head was removed from the acetabulum without incident. The acetabulum was inspected, and found to have no significant arthrosis. Femoral head was then measured. Attention was then redirected to the femur. Proximal femur was re-exposed and a box osteotome was used to lateralize the proximal femur. A merchandise marker was then used to locate the femoral canal. Sequential broaching was then performed to the appropriate size. The calcar was then planed and trial head and neck were placed. The hip was then gently reduced. Leg lengths were checked and found to be equal. Hip was then taken through a full range of motion was stable throughout. The hip was then gently dislocated with the aid of a bone hook. The trial head and neck were then removed. The femoral broach was then inspected and found to have a secure fit. The broach was then removed. The hip was then copiously irrigated with antibiotic solution with a pulse lavage. Components were then opened and the femoral stem was then impacted into the proximal femur. The trunnion was cleaned and dried, and the femoral head and neck were then impacted. Hip was again gently reduced. Again leg lengths were checked and found to be equal, and the hip was taken through a full range of motion and found to be stable. The hip was again irrigated with pulsatile lavage, then followed by the Irrrisept solution. The abductors were then repaired through drill holes to the bone to the greater trochanter, utilizing #5 Ethibond suture. Next the fascia was repaired with #2 strata fix suture. The subcutaneous tissue was then repaired with 3-0 Vicryl. The subcuticular tissue was then repaired with 3-0 strata fix suture. Skin was then closed with Dermabond tape. A sterile dressing was then applied and the patient was transported to the recovery room in stable condition. Boiler Water Tester TEJA Toro was required due to the complexity of surgery the need for skilled rn surgical pcu. She assisted with positioning the patient , draping the patient, retraction during the surgery, and closure of the wound.
[2017-04-12 17:20] LABS: Glucose,Whole Blood 141 mg/dL (75-99)
[2017-04-12] MEDS: LORazepam 2 MG/ML SYRINGE IV PRN (20:56)
[2017-04-12 21:03] LABS: Glucose,Whole Blood 203 mg/dL (75-99)
[2017-04-12] MEDS: ceFAZolin 2 GM in SODIUM CHLORIDE 0.9% 100 ML IVPB SCH (21:03)
[2017-04-12] MEDS: ATORVASTATIN 10 MG TAB PO SCH (21:03)
[2017-04-12] MEDS: SENNOSIDES-DOCUSATE SODIUM 1 EACH TAB PO SCH (21:09)
[2017-04-12] MEDS: HEPARIN SODIUM,PORCINE 5,000 UNIT/ML 1 ML VIAL SQ SCH (23:23)
[2017-04-13] MEDS: ceFAZolin 2 GM in SODIUM CHLORIDE 0.9% 100 ML IVPB SCH (04:45)
[2017-04-13] MEDS: IPRATROPIUM-ALBUTEROL 3 ML NEB INHALATION SCH ×4 (07:23→21:13)
[2017-04-13 07:31] LABS: Glucose,Whole Blood 129 mg/dL (75-99)
[2017-04-13] MEDS ORDERED: MELOXICAM 7.5 MG TAB PO SCH (09:00)
[2017-04-13 09:31] LABS: CH 29.6; CHCM 33.5; HCT 34.6 % (39.0-53.0); HDW 2.73; HGB 11.9 gm/dL (13.0-17.5); MCH 30.5 pg (25.0-35.0); MCHC 34.3 g/dL (31.0-37.0); MCV 88.9 fL (80.0-100.0); Mean Platelet Volume 9.6; RDW 14.2 % (11.5-15.5); WBC (Perox) 28.41
[2017-04-13 09:35] LABS: WBC 26.7 k/uL (3.8-10.6)
[2017-04-13 09:37] LABS: Anion Gap 8 mmol/L; Blood Urea Nitrogen 36 mg/dL (9-20); Carbon Dioxide 24 mmol/L (22-30); Chloride 107 mmol/L (98-107); Glucose 171 mg/dL (74-99); Non-African American GFR(MDRD) >60 (>60 ml/min/1.73 sqM); Potassium 3.1 mmol/L (3.5-5.1); Sodium 139 mmol/L (137-145)
[2017-04-13] MEDS: INSULIN LISPRO (humaLOG) 300 UNIT/3 ML VIAL SQ SCH ×4 (09:52→22:18)
[2017-04-13] MEDS: HEPARIN SODIUM,PORCINE 5,000 UNIT/ML 1 ML VIAL SQ SCH ×2 (09:57→18:19)
[2017-04-13] MEDS: amLODIPine 5 MG TAB PO SCH (09:57)
[2017-04-13] MEDS: LISINOPRIL 20 MG TAB PO SCH (09:57)
[2017-04-13] MEDS: PANTOPRAZOLE 40 MG TABLET PO SCH (09:57)
[2017-04-13] MEDS: BISOPROLOL-HCTZ 10-6.25 MG 1 EACH TAB PO SCH (09:57)
[2017-04-13] MEDS: HYDROCORTISONE SUCCINATE 100 MG/2 ML VIAL IV SCH ×2 (09:57→18:19)
[2017-04-13] MEDS: BACITRACIN 500 UNIT/GM OINT 28.4 GM TUBE TOPICAL SCH ×2 (09:58→22:19)
[2017-04-13 10:01] LABS: Add Differential Manual Differential
[2017-04-13 10:02] LABS: Nucleated Red Blood Cells 0 /100 WBC (0-0); Polychromasia Present; Total Cells Counted 100
[2017-04-13] MEDS ORDERED: Potassium Replacement Protocol 1 EACH MISC MISCELLANE PRN ×2 (11:06→18:07)
[2017-04-13 12:08] LABS: Glucose,Whole Blood 145 mg/dL (75-99)
[2017-04-13] MEDS: POTASSIUM CHLORIDE ER 20 MEQ TAB.ER PO SCH ×4 (12:24→22:17)
--- NOTE | 2017-04-13 13:01 | P.PN ---
Subjective Principal diagnosis: Status post left hip hemiarthroplasty Patient is seen at bedside this morning. He is postop day #1 from left hip hemiarthroplasty. He has pain at the surgical site as expected but denies any new complaints. He denies new numbness, tingling or calf pain. Review of systems is negative for fever, chills, chest pain, shortness of breath or other Objective - Vital Signs Vital signs: Vital Signs Temp 98.9 F 04/13/17 07:00 Pulse 72 04/13/17 11:31 Resp 16 04/13/17 07:00 BP 159/84 04/13/17 07:00 Pulse Ox 90 L 04/13/17 07:00 Intake & Output 04/12/17 04/13/17 04/13/17 18:59 06:59 18:59 Intake Total 1005 Output Total 802 525 Balance 203 -525 Weight 80.6 kg Intake: IV 1005 Output: Urine 750 525 Stool 2 Estimated Blood Loss 50 Other: Voiding Method Indwelling Catheter Indwelling Catheter Indwelling Catheter # Voids 0 0 # Bowel Movements 0 - Exam Inspection reveals a benign surgical wound. There is no active bleeding or drainage. Neurovascular status is intact throughout the lower extremity with motor and sensation fully intact. Calf is soft and nontender. 2+ dorsalis pedis pulse and less than 2 second cap refill is present. - Constitutional General appearance: Present: no acute distress - Psychiatric Psychiatric: Present: A&O x's 3, appropriate affect, intact judgment & insight - Labs CBC & Chem 7: 04/13/17 08:32 04/13/17 08:32 Labs: Abnormal Lab Results - Last 24 Hours (Table) 04/12/17 04/12/17 04/12/17 Range/Units 13:56 17:17 21:01 WBC (3.8-10.6) k/uL RBC (4.30-5.90) m/uL Hgb (13.0-17.5) gm/dL Hct (39.0-53.0) % Neutrophils # (Manual) (1.3-7.7) k/uL Monocytes # (Manual) (0-1.0) k/uL Potassium (3.5-5.1) mmol/L BUN (9-20) mg/dL Glucose (74-99) mg/dL POC Glucose (mg/dL) 123 H 141 H 203 H (75-99) mg/dL Calcium (8.4-10.2) mg/dL 04/13/17 04/13/17 04/13/17 Range/Units 07:28 08:32 08:32 WBC 26.7 H* (3.8-10.6) k/uL RBC 3.90 L (4.30-5.90) m/uL Hgb 11.9 L (13.0-17.5) gm/dL Hct 34.6 L (39.0-53.0) % Neutrophils # (Manual) 23.5 H (1.3-7.7) k/uL Monocytes # (Manual) 1.9 H (0-1.0) k/uL Potassium 3.1 L (3.5-5.1) mmol/L BUN 36 H (9-20) mg/dL Glucose 171 H (74-99) mg/dL POC Glucose (mg/dL) 129 H (75-99) mg/dL Calcium 8.0 L (8.4-10.2) mg/dL 04/13/17 Range/Units 12:05 WBC (3.8-10.6) k/uL RBC (4.30-5.90) m/uL Hgb (13.0-17.5) gm/dL Hct (39.0-53.0) % Neutrophils # (Manual) (1.3-7.7) k/uL Monocytes # (Manual) (0-1.0) k/uL Potassium (3.5-5.1) mmol/L BUN (9-20) mg/dL Glucose (74-99) mg/dL POC Glucose (mg/dL) 145 H (75-99) mg/dL Calcium (8.4-10.2) mg/dL Microbiology - Last 24 Hours (Table) 04/07/17 08:15 Blood Culture - Final Blood No Growth after 144 hours 04/07/17 07:40 Blood Culture - Final Blood No Growth after 144 hours Assessment and Plan (1) Closed left hip fracture Narrative/Plan: He will continue with routine postop orthopedic protocol including pain management, wound care, physical therapy, DVT prophylaxis and medical management. His white count is 26.7 today and is being followed by pulmonology and internal medicine. We'll defer to primary team in regards to addressing labs and other medical problems. We'll continue to follow and make recommendations as appropriate. Status: Acute Time with Patient: Less than 30
--- NOTE | 2017-04-13 13:14 | P.PN ---
Subjective This is a very pleasant 82-year-old gentleman who follows with Dr. Anderson as his primary care physician. 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 He had presented here on 04/05/2017 with concerns regarding possible recurrent CVA/TIA with this time left-sided weakness, confusion. His family felt he was getting confused and we consented help them to the bathroom and apparently the patient had fallen off the commode at some point. He was helped up into a chair and EMS was called. A computed tomography scan of the brain revealed no acute process. Carotid Dopplers revealed no significant stenosis. Chest x-ray showed cardiomegaly with basilar atelectasis. Venous Doppler was negative for DVT of the left. Left hip x-ray revealed suspected acute subcapital fracture of the left proximal femur and the plan was for surgical repair 04/08/2017. He was initially admitted to the regular medical floor. He subsequently developed abdominal distention possible small bowel obstruction. He became very short of breath and tachycardic and an a team was called. He was subsequently transferred here to the intensive care unit. He had been seen and evaluated yesterday by Dr. James. He is seen again today in follow-up. He is awake and alert in no acute distress. He has strong equal hand grasps. His speech does at times seems garbled and other times quite clear. He is maintaining good O2 saturations in the mid 90s on 3 L/m per nasal cannula. He is afebrile. He was on norepinephrine overnight however was turned off approximate 7:30 this morning and he is maintaining O2 mean arterial pressures greater than 60. His urine output has been borderline. Fluid boluses been initiated. He is status post 4 L of fluid resuscitation since admission. Peak WBC is 37 currently at 22.9. Peak lactic acid 4.8, currently 1.3. Renal function is improved currently 1.05 creatinine. Chest x-ray continues to show left basilar atelectasis/infiltrate. He is currently on vancomycin. Blood cultures reveal no growth to date. Urine and sputum cultures pending. The patient is seen again today 04/09/2017 in follow-up in the intensive care unit. He is more awake and alert today as compared to yesterday. He is oriented 3. He denies any shortness of breath, cough or congestion. He is maintaining good O2 saturations in the high 90s on 2 L/m per nasal cannula. He is afebrile. He's been hemodynamically stable. No chest pain, palpitations, lightheadedness or dizziness. He does have some left hip discomfort but currently the pain is well controlled. The plan is for repair of the left proximal femur fracture on 04/12/2017. His aspirin and Plavix remain on hold. He is seen again today 04/10/2017 in follow-up on the regular medical floor. He has continued and ongoing issues with altered mental status. He was quite confused last evening. A sitter is at the bedside. He has no complaints of shortness of breath, cough or congestion. His maintaining good O2 saturations in the mid 90s on room air. He's been afebrile. Hemodynamically stable. The plan is for left hip arthroplasty on 04/12/2017. The patient is seen again today 04/11/2017 in follow-up on the regular medical floor. He is more awake and alert today as compared to yesterday. He is still having issues with altered mental status and occasional confusion however these things were happening prior to his admission according to the . His blood cultures reveal no growth to date. He denies any worsening shortness of breath , cough or congestion. He is maintaining O2 saturations in the low 90s on room air. He's been hemodynamically stable. Afebrile. Chest x-ray reveals stable bilateral subsegmental atelectasis. On 04/11/2017 the patient is postop day #1 following his hip /ORIF surgery. No nausea. No vomiting. No pain. He is awake and alert. No respiratory distress. I've noted his white count has come up to 26.7. This is a concern of this physical monitored very closely. Meanwhile his hemoglobin is at 11.9 and there is no significant drop in hemoglobin postop. Renal function is stable with a creatinine of 1.1. He is moving all 4 extremities. Surgical wound site is clean. Neurovascularly intact. He has been also afebrile for now. Objective - Vital Signs Vital signs: Vital Signs Temp 98.9 F 04/13/17 07:00 Pulse 72 04/13/17 11:31 Resp 16 04/13/17 07:00 BP 159/84 04/13/17 07:00 Pulse Ox 90 L 04/13/17 07:00 Intake & Output 04/12/17 04/13/17 04/13/17 18:59 06:59 18:59 Intake Total 1005 Output Total 802 525 Balance 203 -525 Weight 80.6 kg Intake: IV 1005 Output: Urine 750 525 Stool 2 Estimated Blood Loss 50 Other: Voiding Method Indwelling Catheter Indwelling Catheter Indwelling Catheter # Voids 0 0 # Bowel Movements 0 - Exam Patient is comfortable in bed. Slow in answering questions. At times confused.Head exam was generally normal. There was no scleral icterus or corneal arcus. Mucous membranes were moist. Neck is supple and there is no JVDs no goiter or neck masses. Lungs sounds are diminished special lung bases bilaterally along with some few bibasilar crackles.Cardiac exam revealed the PMI to be normally situated and sized. The rhythm was regular and no extrasystoles were noted during several minutes of auscultation. The first and second heart sounds were normal and physiologic splitting of the second heart sound was noted. There were no murmurs, rubs, clicks, or gallops.Abdominal exam revealed normal bowel sounds. The abdomen was soft, non-tender, and without masses, organomegaly, or appreciable enlargement of the abdominal aorta. Extremities are soft and there is no cyanosis or clubbing at this point. Surgical wound site over the hip areas dry clean and intact. - Labs CBC & Chem 7: 04/13/17 08:32 04/13/17 08:32 Labs: Abnormal Lab Results - Last 24 Hours (Table) 04/12/17 04/12/17 04/12/17 Range/Units 13:56 17:17 21:01 WBC (3.8-10.6) k/uL RBC (4.30-5.90) m/uL Hgb (13.0-17.5) gm/dL Hct (39.0-53.0) % Neutrophils # (Manual) (1.3-7.7) k/uL Monocytes # (Manual) (0-1.0) k/uL Potassium (3.5-5.1) mmol/L BUN (9-20) mg/dL Glucose (74-99) mg/dL POC Glucose (mg/dL) 123 H 141 H 203 H (75-99) mg/dL Calcium (8.4-10.2) mg/dL 04/13/17 04/13/17 04/13/17 Range/Units 07:28 08:32 08:32 WBC 26.7 H* (3.8-10.6) k/uL RBC 3.90 L (4.30-5.90) m/uL Hgb 11.9 L (13.0-17.5) gm/dL Hct 34.6 L (39.0-53.0) % Neutrophils # (Manual) 23.5 H (1.3-7.7) k/uL Monocytes # (Manual) 1.9 H (0-1.0) k/uL Potassium 3.1 L (3.5-5.1) mmol/L BUN 36 H (9-20) mg/dL Glucose 171 H (74-99) mg/dL POC Glucose (mg/dL) 129 H (75-99) mg/dL Calcium 8.0 L (8.4-10.2) mg/dL 04/13/17 Range/Units 12:05 WBC (3.8-10.6) k/uL RBC (4.30-5.90) m/uL Hgb (13.0-17.5) gm/dL Hct (39.0-53.0) % Neutrophils # (Manual) (1.3-7.7) k/uL Monocytes # (Manual) (0-1.0) k/uL Potassium (3.5-5.1) mmol/L BUN (9-20) mg/dL Glucose (74-99) mg/dL POC Glucose (mg/dL) 145 H (75-99) mg/dL Calcium (8.4-10.2) mg/dL Microbiology - Last 24 Hours (Table) 04/07/17 08:15 Blood Culture - Final Blood No Growth after 144 hours 04/07/17 07:40 Blood Culture - Final Blood No Growth after 144 hours Assessment and Plan Plan: Impression: #1 Altered mental status with left-sided weakness and suspected CVA/TIA. I suspect that there is a underlying component of dementia. Doubt a superimposed stroke at this point based on the overall presentation. #2 Fall with trauma and fracture of the left proximal femur. Patient is status post ORIF of a left femur fracture and the patient is postop day #1. Surgery got done yesterday without any significant complications. #3 Abdominal distention with suspected bowel obstruction, recovered and this was treated in intensive care unit and his abdomen was deflated by an NG tube. Currently no abdominal distention had no nausea. No vomiting. No diarrhea. No other complications from the gastrointestinal standpoint. #4 Left lower lobe atelectasis/infiltrate , stable on a few liters of oxygen nasal cannula #5 Leukocytosis without fever, we'll monitor #6 Sepsis with septic shock and hypotension requiring norepinephrine. #7 Lactic acidosis, recovered #8 Previous history of CVA/TIA with residual right-sided weakness and aphasia. #9 History of hypertension. #10 Gastroesophageal reflux disease. #11 Osteoarthritis. #12 Poor overall functional performance based on the above-mentioned multiple comorbidities. Plan Dilaudid for pain control. Provide patient incentive spirometer. DuoNeb the breast units [id number]. Advance diet as tolerated. Gentle fluid resuscitation with normal state rate of 50 mL an hour. Monitor mental status. Continue the hydrocortisone stress dose. Will need DVT prophylaxis with therapeutic and subcu. We will continue to follow make further recommendations along with the rest of the team.
--- NOTE | 2017-04-13 15:45 | XR ---
EXAMINATION TYPE: XR chest 1V portable DATE OF EXAM: 04/13/2017 COMPARISON: 04/11/2017 HISTORY: Pneumonia TECHNIQUE: Single frontal view of the chest is obtained. FINDINGS: Heart and mediastinum are normal. Lungs are clear of infiltrate. There is no heart failure . There is no sign of pleural effusion. Bony thorax appears intact. IMPRESSION: There is improved inspiration compared to last exam. No evidence of bronchopneumonia.
--- NOTE | 2017-04-13 16:41 | P.PN ---
Subjective Was admitted secondary to fall and fracture patient is postoperative day 1open reduction and fixation of the left femoral fracture, patient appears to have been evaluated for CVA and TIA because of the left-sided suspected weakness from the previous dictations. Patient has leukocytosis today although patient denied any fever, cough, runny nose,, abdominal pain, dysuria, photophobia. I'm in the process of doing septic workup at this time with urine cultures, blood cultures UA and a chest x- ray. Objective - Vital Signs Vital signs: Vital Signs Temp 98.9 F 04/13/17 07:00 Pulse 78 04/13/17 16:22 Resp 16 04/13/17 07:00 BP 159/84 04/13/17 07:00 Pulse Ox 90 L 04/13/17 07:00 Intake & Output 04/12/17 04/13/17 04/13/17 18:59 06:59 18:59 Intake Total 1005 450 Output Total 802 525 Balance 203 -525 450 Weight 80.6 kg Intake: IV 1005 Intake, IV Titration 450 Amount Sodium Chloride 0.9% 1, 450 000 ml @ 50 mls/hr IV . Q20H [facility] Rx#:[id number] Output: Urine 750 525 Stool 2 Estimated Blood Loss 50 Other: Voiding Method Indwelling Catheter Indwelling Catheter Indwelling Catheter # Voids 0 0 # Bowel Movements 0 - Exam PHYSICAL EXAMINATION: GENERAL: The patient is alert and oriented x3, not in any acute distress. Well developed, well nourished. HEENT: Pupils are round and equally reacting to light. EOMI. No scleral icterus. No conjunctival pallor. Normocephalic, atraumatic. No pharyngeal erythema. No thyromegaly. CARDIOVASCULAR: S1 and S2 present. No murmurs, rubs, or gallops. PULMONARY: Chest is clear to auscultation, no wheezing or crackles. ABDOMEN: Soft, nontender, minimally distended and tympanic normoactive bowel sounds. No palpable organomegaly. MUSCULOSKELETAL: No joint swelling or deformity. EXTREMITIES: Deferred to orthopedic surgery NEUROLOGICAL: Gross neurological examination did not reveal any focal deficits. SKIN: No rashes. - Labs CBC & Chem 7: 04/13/17 08:32 04/13/17 08:32 Labs: Abnormal Lab Results - Last 24 Hours (Table) 04/12/17 04/12/1717 Range/Units 17:17 21:01 07:28 WBC (3.8-10.6) k/uL RBC (4.30-5.90) m/uL Hgb (13.0-17.5) gm/dL Hct (39.0-53.0) % Neutrophils # (Manual) (1.3-7.7) k/uL Monocytes # (Manual) (0-1.0) k/uL Potassium (3.5-5.1) mmol/L BUN (9-20) mg/dL Glucose (74-99) mg/dL POC Glucose (mg/dL) 141 H 203 H 129 H (75-99) mg/dL Calcium (8.4-10.2) mg/dL 04/13/17 04/13/17 04/13/17 Range/Units 08:32 08:32 12:05 WBC 26.7 H* (3.8-10.6) k/uL RBC 3.90 L (4.30-5.90) m/uL Hgb 11.9 L (13.0-17.5) gm/dL Hct 34.6 L (39.0-53.0) % Neutrophils # (Manual) 23.5 H (1.3-7.7) k/uL Monocytes # (Manual) 1.9 H (0-1.0) k/uL Potassium 3.1 L (3.5-5.1) mmol/L BUN 36 H (9-20) mg/dL Glucose 171 H (74-99) mg/dL POC Glucose (mg/dL) 145 H (75-99) mg/dL Calcium 8.0 L (8.4-10.2) mg/dL Microbiology - Last 24 Hours (Table) 04/07/17 08:15 Blood Culture - Final Blood No Growth after 144 hours 04/07/17 07:40 Blood Culture - Final Blood No Growth after 144 hours Assessment and Plan Plan: 1 left hip fracture patient is status post open reduction and fixation: Pain is well controlled on present regimen but patient is on quite a few narcotics in front of his age because of which will need to 1 monitor for the side effects including confusion, constipation. DVT prophylaxis as per orthopedic surgery. 2 altered mental status with left-sided weakness patient was worked up for CVA and TIA, does not appear to have any new stroke but appeared to have dementia #3 leukocytosis: Evaluating for source of infection if there is any can be reactive in nature without any infection #4 hypertension #5 osteoarthritis #6 gastroesophageal reflux disease
[2017-04-13 17:15] LABS: Appearance,Urine Clear (Clear); Bilirubin,Urine Negative (Negative); Glucose,Urine (UA) Negative (Negative); Ketones,Urine Negative (Negative); Leukocyte Esterase,Urine Small (Negative); Mucus,Urine Rare /hpf; Nitrite,Urine Negative (Negative); PH, Urine 5.5 (5.0-8.0); Particle Count 2456; Protein,Urine Trace (Negative); RBC,Urine 3 /hpf (0-5); Specific Gravity,Urine 1.014 (1.001-1.035); UA Billing (MACRO vs. MICRO) MICRO; Urobilinogen,Urine <2.0 mg/dL (<2.0); WBC,Urine 4 /hpf (0-5)
[2017-04-13 17:16] LABS: Glucose,Whole Blood 120 mg/dL (75-99)
[2017-04-13] MEDS: SODIUM CHLORIDE 0.9% 1,000 ML IV SCH (18:19)
[2017-04-13 21:02] LABS: Glucose,Whole Blood 143 mg/dL (75-99)
[2017-04-13] MEDS: ATORVASTATIN 10 MG TAB PO SCH (22:18)
[2017-04-13] MEDS: LORazepam 2 MG/ML SYRINGE IV PRN (22:21)
[2017-04-13] MEDS: SENNOSIDES-DOCUSATE SODIUM 1 EACH TAB PO SCH (22:23)
[2017-04-14] MEDS: HYDROCORTISONE SUCCINATE 100 MG/2 ML VIAL IV SCH ×4 (00:12→23:15)
[2017-04-14] MEDS: HEPARIN SODIUM,PORCINE 5,000 UNIT/ML 1 ML VIAL SQ SCH ×4 (00:12→23:15)
[2017-04-14] MEDS: LORazepam 2 MG/ML SYRINGE IV PRN ×2 (06:42→20:55)
[2017-04-14 07:21] LABS: Glucose,Whole Blood 128 mg/dL (75-99)
[2017-04-14] MEDS: IPRATROPIUM-ALBUTEROL 3 ML NEB INHALATION SCH ×4 (07:30→20:50)
[2017-04-14] MEDS: INSULIN LISPRO (humaLOG) 300 UNIT/3 ML VIAL SQ SCH ×4 (08:51→21:09)
[2017-04-14] MEDS: LISINOPRIL 20 MG TAB PO SCH (08:51)
[2017-04-14] MEDS: amLODIPine 5 MG TAB PO SCH (08:51)
[2017-04-14] MEDS: BISOPROLOL-HCTZ 10-6.25 MG 1 EACH TAB PO SCH (08:51)
[2017-04-14] MEDS: BACITRACIN 500 UNIT/GM OINT 28.4 GM TUBE TOPICAL SCH ×2 (08:51→20:55)
[2017-04-14] MEDS: PANTOPRAZOLE 40 MG TABLET PO SCH (08:51)
[2017-04-14 09:12] LABS: Basophils # (A) 0.1 k/uL (0-0.2); Basophils % (A) 0 %; CH 30.5; CHCM 33.9; Eosinophils % (A) 0 %; HDW 2.65; Luc # (Auto) 0.19; Luc % (Auto) 1; Lymphocytes % (A) 5 %; MCH 30.1 pg (25.0-35.0); MCHC 33.2 g/dL (31.0-37.0); MCV 90.5 fL (80.0-100.0); Mean Platelet Volume 10.1; Monocytes # (A) 1.1 k/uL (0-1.0); Monocytes % (A) 6 %; Neutrophils # (A) 18.2 k/uL (1.3-7.7); Neutrophils % (A) 89 %; RBC 3.32 m/uL (4.30-5.90); RDW 14.9 % (11.5-15.5); WBC 20.6 k/uL (3.8-10.6)
[2017-04-14 09:23] LABS: Anion Gap 5 mmol/L; Blood Urea Nitrogen 31 mg/dL (9-20); Calcium 7.9 mg/dL (8.4-10.2); Carbon Dioxide 29 mmol/L (22-30); Chloride 106 mmol/L (98-107); Glucose 110 mg/dL (74-99); Non-African American GFR(MDRD) >60 (>60 ml/min/1.73 sqM); Potassium 3.3 mmol/L (3.5-5.1); Sodium 140 mmol/L (137-145)
[2017-04-14] MEDS ORDERED: Potassium Replacement Protocol 1 EACH MISC MISCELLANE PRN (10:46)
[2017-04-14 11:53] LABS: Glucose,Whole Blood 121 mg/dL (75-99)
--- NOTE | 2017-04-14 12:19 | P.PN ---
Subjective Was admitted secondary to fall and fracture patient is postoperative day 1open reduction and fixation of the left femoral fracture, patient appears to have been evaluated for CVA and TIA because of the left-sided suspected weakness from the previous dictations. Patient has leukocytosis today although patient denied any fever, cough, runny nose,, abdominal pain, dysuria, photophobia. I'm in the process of doing septic workup at this time with urine cultures, blood cultures UA and a chest x- ray. 04/14/2017 Patient's WBC count has trended down all the workup for sepsis is negative patient remains lethargic and his clinical condition remains concerning. Opiate analgesia may be contributing to his symptoms. Dilaudid and anticholinergic medications are being discontinued. Patient has fairly good bowel sounds. Patient denied any cough, dysuria, nausea, vomiting, new focal deficits. Objective - Vital Signs Vital signs: Vital Signs Temp 97.1 F L 04/14/17 07:00 Pulse 92 04/14/17 11:33 Resp 18 04/14/17 07:00 BP 151/81 04/14/17 07:00 Pulse Ox 90 L 04/13/17 23:14 Intake & Output 04/13/17 04/14/17 04/14/17 18:59 06:59 18:59 Intake Total 450 100 Output Total 500 800 Balance -50 -800 100 Intake: Intake, IV Titration 450 Amount Sodium Chloride 0.9% 1, 450 000 ml @ 50 mls/hr IV . Q20H [facility] Rx#:[id number] Oral 100 Output: Urine 500 800 Other: Voiding Method Indwelling Catheter Indwelling Catheter Indwelling Catheter # Voids 0 # Bowel Movements 0 - Exam PHYSICAL EXAMINATION: GENERAL: The patient is drowsy, lethargic and oriented x3, not in any acute distress. Well developed, well nourished. HEENT: Pupils are round and equally reacting to light. EOMI. No scleral icterus. No conjunctival pallor. Normocephalic, atraumatic. No pharyngeal erythema. No thyromegaly. CARDIOVASCULAR: S1 and S2 present. No murmurs, rubs, or gallops. PULMONARY: Chest is clear to auscultation, no wheezing or crackles. ABDOMEN: Soft, nontender, minimally distended and tympanic normoactive bowel sounds. No palpable organomegaly. MUSCULOSKELETAL: No joint swelling or deformity. EXTREMITIES: Deferred to orthopedic surgery NEUROLOGICAL: Gross neurological examination did not reveal any focal deficits. SKIN: No rashes. - Labs CBC & Chem 7: 04/14/17 08:12 04/14/17 08:12 Labs: Abnormal Lab Results - Last 24 Hours (Table) 04/13/17 04/13/17 04/13/17 Range/Units 16:01 17:00 17:07 WBC (3.8-10.6) k/uL RBC (4.30-5.90) m/uL Hgb (13.0-17.5) gm/dL Hct (39.0-53.0) % Neutrophils # (1.3-7.7) k/uL Monocytes # (0-1.0) k/uL Potassium 3.3 L (3.5-5.1) mmol/L BUN (9-20) mg/dL Glucose (74-99) mg/dL POC Glucose (mg/dL) 120 H (75-99) mg/dL Calcium (8.4-10.2) mg/dL Urine Protein Trace H (Negative) Urine Blood Moderate H (Negative) Ur Leukocyte Esterase Small H (Negative) Hyaline Casts 5 H (0-2) /lpf Urine Mucus Rare H (None) /hpf 04/13/17 04/14/17 04/14/17 Range/Units 20:56 07:16 08:12 WBC 20.6 H (3.8-10.6) k/uL RBC 3.32 L (4.30-5.90) m/uL Hgb 10.0 L D (13.0-17.5) gm/dL Hct 30.0 L (39.0-53.0) % Neutrophils # 18.2 H (1.3-7.7) k/uL Monocytes # 1.1 H (0-1.0) k/uL Potassium (3.5-5.1) mmol/L BUN (9-20) mg/dL Glucose (74-99) mg/dL POC Glucose (mg/dL) 143 H 128 H (75-99) mg/dL Calcium (8.4-10.2) mg/dL Urine Protein (Negative) Urine Blood (Negative) Ur Leukocyte Esterase (Negative) Hyaline Casts (0-2) /lpf Urine Mucus (None) /hpf 04/14/17 04/14/17 Range/Units 08:12 11:42 WBC (3.8-10.6) k/uL RBC (4.30-5.90) m/uL Hgb (13.0-17.5) gm/dL Hct (39.0-53.0) % Neutrophils # (1.3-7.7) k/uL Monocytes # (0-1.0) k/uL Potassium 3.3 L (3.5-5.1) mmol/L BUN 31 H (9-20) mg/dL Glucose 110 H (74-99) mg/dL POC Glucose (mg/dL) 121 H (75-99) mg/dL Calcium 7.9 L (8.4-10.2) mg/dL Urine Protein (Negative) Urine Blood (Negative) Ur Leukocyte Esterase (Negative) Hyaline Casts (0-2) /lpf Urine Mucus (None) /hpf Microbiology - Last 24 Hours (Table) 04/13/17 17:00 Urine Culture - Preliminary Urine,Catheterized 04/07/17 08:15 Blood Culture - Final Blood No Growth after 144 hours 04/07/17 07:40 Blood Culture - Final Blood No Growth after 144 hours Assessment and Plan Plan: 1 left hip fracture patient is status post open reduction and fixation: Pain is well controlled, cutting down opiate ALLERGY Amisha and anticollagen medication patient remains quite lethargic. DVT prophylaxis as per orthopedic surgery. 2 altered mental status with left-sided weakness patient was worked up for CVA and TIA, does not appear to have any new stroke but appeared to have dementia #3 leukocytosis: So far there is no appreciable source of infection will continue to monitor for any fevers. #4 hypertension #5 osteoarthritis #6 gastroesophageal reflux disease Will need close clinical monitoring. Patient remains quite lethargic. Patient will be followed by Dr. Anderson from tomorrow.
--- NOTE | 2017-04-14 13:10 | P.PN ---
Subjective Principal diagnosis: Status post left hip hemiarthroplasty Patient is seen at bedside this morning. He is postop day #2 from left hip hemiarthroplasty. He has pain at the surgical site as expected but denies any new complaints. He denies new numbness, tingling or calf pain. Review of systems is negative for fever, chills, chest pain, shortness of breath or other Objective - Vital Signs Vital signs: Vital Signs Temp 97.1 F L 04/14/17 07:00 Pulse 92 04/14/17 11:33 Resp 18 04/14/17 07:00 BP 151/81 04/14/17 07:00 Pulse Ox 90 L 04/13/17 23:14 Intake & Output 04/13/17 04/14/17 04/14/17 18:59 06:59 18:59 Intake Total 450 100 Output Total 500 800 Balance -50 -800 100 Intake: Intake, IV Titration 450 Amount Sodium Chloride 0.9% 1, 450 000 ml @ 50 mls/hr IV . Q20H [facility] Rx#:[id number] Oral 100 Output: Urine 500 800 Other: Voiding Method Indwelling Catheter Indwelling Catheter Indwelling Catheter # Voids 0 # Bowel Movements 0 - Exam Inspection reveals a benign surgical wound. There is no active bleeding or drainage. Neurovascular status is intact throughout the lower extremity with motor and sensation fully intact. Calf is soft and nontender. 2+ dorsalis pedis pulse and less than 2 second cap refill is present. - Constitutional General appearance: Present: no acute distress - Psychiatric Psychiatric: Present: A&O x's 3, appropriate affect, intact judgment & insight - Labs CBC & Chem 7: 04/14/17 08:12 04/14/17 08:12 Labs: Abnormal Lab Results - Last 24 Hours (Table) 04/13/17 04/13/17 04/13/17 Range/Units 16:01 17:00 17:07 WBC (3.8-10.6) k/uL RBC (4.30-5.90) m/uL Hgb (13.0-17.5) gm/dL Hct (39.0-53.0) % Neutrophils # (1.3-7.7) k/uL Monocytes # (0-1.0) k/uL Potassium 3.3 L (3.5-5.1) mmol/L BUN (9-20) mg/dL Glucose (74-99) mg/dL POC Glucose (mg/dL) 120 H (75-99) mg/dL Calcium (8.4-10.2) mg/dL Urine Protein Trace H (Negative) Urine Blood Moderate H (Negative) Ur Leukocyte Esterase Small H (Negative) Hyaline Casts 5 H (0-2) /lpf Urine Mucus Rare H (None) /hpf 04/13/17 04/14/17 04/14/17 Range/Units 20:56 07:16 08:12 WBC 20.6 H (3.8-10.6) k/uL RBC 3.32 L (4.30-5.90) m/uL Hgb 10.0 L D (13.0-17.5) gm/dL Hct 30.0 L (39.0-53.0) % Neutrophils # 18.2 H (1.3-7.7) k/uL Monocytes # 1.1 H (0-1.0) k/uL Potassium (3.5-5.1) mmol/L BUN (9-20) mg/dL Glucose (74-99) mg/dL POC Glucose (mg/dL) 143 H 128 H (75-99) mg/dL Calcium (8.4-10.2) mg/dL Urine Protein (Negative) Urine Blood (Negative) Ur Leukocyte Esterase (Negative) Hyaline Casts (0-2) /lpf Urine Mucus (None) /hpf 04/14/17 04/14/17 Range/Units 08:12 11:42 WBC (3.8-10.6) k/uL RBC (4.30-5.90) m/uL Hgb (13.0-17.5) gm/dL Hct (39.0-53.0) % Neutrophils # (1.3-7.7) k/uL Monocytes # (0-1.0) k/uL Potassium 3.3 L (3.5-5.1) mmol/L BUN 31 H (9-20) mg/dL Glucose 110 H (74-99) mg/dL POC Glucose (mg/dL) 121 H (75-99) mg/dL Calcium 7.9 L (8.4-10.2) mg/dL Urine Protein (Negative) Urine Blood (Negative) Ur Leukocyte Esterase (Negative) Hyaline Casts (0-2) /lpf Urine Mucus (None) /hpf Microbiology - Last 24 Hours (Table) 04/13/17 17:00 Urine Culture - Preliminary Urine,Catheterized 04/07/17 08:15 Blood Culture - Final Blood No Growth after 144 hours 04/07/17 07:40 Blood Culture - Final Blood No Growth after 144 hours Assessment and Plan (1) Closed left hip fracture Narrative/Plan: He will continue with routine postop orthopedic protocol including pain management, wound care, physical therapy, DVT prophylaxis and medical management. . We'll defer to primary team in regards to addressing labs and other medical problems. We'll continue to follow and make recommendations as appropriate. He may be up out of bed with PT as tolerated Status: Acute Time with Patient: Less than 30
--- NOTE | 2017-04-14 13:17 | P.PN ---
Subjective This is a very pleasant 82-year-old gentleman who follows with Dr. Anderson as his primary care physician. 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 He had presented here on 04/05/2017 with concerns regarding possible recurrent CVA/TIA with this time left-sided weakness, confusion. His family felt he was getting confused and we consented help them to the bathroom and apparently the patient had fallen off the commode at some point. He was helped up into a chair and EMS was called. A computed tomography scan of the brain revealed no acute process. Carotid Dopplers revealed no significant stenosis. Chest x-ray showed cardiomegaly with basilar atelectasis. Venous Doppler was negative for DVT of the left. Left hip x-ray revealed suspected acute subcapital fracture of the left proximal femur and the plan was for surgical repair 04/08/2017. He was initially admitted to the regular medical floor. He subsequently developed abdominal distention possible small bowel obstruction. He became very short of breath and tachycardic and an a team was called. He was subsequently transferred here to the intensive care unit. He had been seen and evaluated yesterday by Dr. James. He is seen again today in follow-up. He is awake and alert in no acute distress. He has strong equal hand grasps. His speech does at times seems garbled and other times quite clear. He is maintaining good O2 saturations in the mid 90s on 3 L/m per nasal cannula. He is afebrile. He was on norepinephrine overnight however was turned off approximate 7:30 this morning and he is maintaining O2 mean arterial pressures greater than 60. His urine output has been borderline. Fluid boluses been initiated. He is status post 4 L of fluid resuscitation since admission. Peak WBC is 37 currently at 22.9. Peak lactic acid 4.8, currently 1.3. Renal function is improved currently 1.05 creatinine. Chest x-ray continues to show left basilar atelectasis/infiltrate. He is currently on vancomycin. Blood cultures reveal no growth to date. Urine and sputum cultures pending. The patient is seen again today 04/09/2017 in follow-up in the intensive care unit. He is more awake and alert today as compared to yesterday. He is oriented 3. He denies any shortness of breath, cough or congestion. He is maintaining good O2 saturations in the high 90s on 2 L/m per nasal cannula. He is afebrile. He's been hemodynamically stable. No chest pain, palpitations, lightheadedness or dizziness. He does have some left hip discomfort but currently the pain is well controlled. The plan is for repair of the left proximal femur fracture on 04/12/2017. His aspirin and Plavix remain on hold. He is seen again today 04/10/2017 in follow-up on the regular medical floor. He has continued and ongoing issues with altered mental status. He was quite confused last evening. A sitter is at the bedside. He has no complaints of shortness of breath, cough or congestion. His maintaining good O2 saturations in the mid 90s on room air. He's been afebrile. Hemodynamically stable. The plan is for left hip arthroplasty on 04/12/2017. The patient is seen again today 04/11/2017 in follow-up on the regular medical floor. He is more awake and alert today as compared to yesterday. He is still having issues with altered mental status and occasional confusion however these things were happening prior to his admission according to the . His blood cultures reveal no growth to date. He denies any worsening shortness of breath , cough or congestion. He is maintaining O2 saturations in the low 90s on room air. He's been hemodynamically stable. Afebrile. Chest x-ray reveals stable bilateral subsegmental atelectasis. On 04/13/2017 the patient is postop day #1 following his hip /ORIF surgery. No nausea. No vomiting. No pain. He is awake and alert. No respiratory distress. I've noted his white count has come up to 26.7. This is a concern of this physical monitored very closely. Meanwhile his hemoglobin is at 11.9 and there is no significant drop in hemoglobin postop. Renal function is stable with a creatinine of 1.1. He is moving all 4 extremities. Surgical wound site is clean. Neurovascularly intact. He has been also afebrile for now. On 04/14/2017 the patient is postop day #2 from his ORIF of left hip fracture/ femur fracture. His mentation is still fluctuating. Overnight the patient became quite agitated and based on that he was given Ativan 1 mg every 4-6 hours. This morning his much more comfortable and his sedated and sleeping. No respiratory distress. No fever or chills. White cell count is up. To 20, 000. He has adequate pain control. Surgical wound site is dry clean and intact. His motor the 4 extremities. Family is at the bedside. Objective - Vital Signs Vital signs: Vital Signs Temp 97.1 F L 04/14/17 07:00 Pulse 92 04/14/17 11:33 Resp 18 04/14/17 07:00 BP 151/81 04/14/17 07:00 Pulse Ox 90 L 04/13/17 23:14 Intake & Output 04/13/17 04/14/17 04/14/17 18:59 06:59 18:59 Intake Total 450 100 Output Total 500 800 Balance -50 -800 100 Intake: Intake, IV Titration 450 Amount Sodium Chloride 0.9% 1, 450 000 ml @ 50 mls/hr IV . Q20H [facility] Rx#:[id number] Oral 100 Output: Urine 500 800 Other: Voiding Method Indwelling Catheter Indwelling Catheter Indwelling Catheter # Voids 0 # Bowel Movements 0 - Exam Patient is under the effect of Ativan, sleeping and relaxing at this point. He was apparently confused and somewhat agitated on and off throughout the night. .Head exam was generally normal. There was no scleral icterus or corneal arcus. Mucous membranes were moist. Neck is supple and there is no JVDs no goiter or neck masses. Lungs sounds are diminished special lung bases bilaterally along with some few bibasilar crackles.Cardiac exam revealed the PMI to be normally situated and sized. The rhythm was regular and no extrasystoles were noted during several minutes of auscultation. The first and second heart sounds were normal and physiologic splitting of the second heart sound was noted. There were no murmurs, rubs, clicks, or gallops.Abdominal exam revealed normal bowel sounds. The abdomen was soft, non-tender, and without masses, organomegaly, or appreciable enlargement of the abdominal aorta. Extremities are soft and there is no cyanosis or clubbing at this point. Surgical wound site over the hip areas dry clean and intact. - Labs CBC & Chem 7: 04/14/17 08:12 04/14/17 08:12 Labs: Abnormal Lab Results - Last 24 Hours (Table) 04/13/17 04/13/17 04/13/17 Range/Units 16:01 17:00 17:07 WBC (3.8-10.6) k/uL RBC (4.30-5.90) m/uL Hgb (13.0-17.5) gm/dL Hct (39.0-53.0) % Neutrophils # (1.3-7.7) k/uL Monocytes # (0-1.0) k/uL Potassium 3.3 L (3.5-5.1) mmol/L BUN (9-20) mg/dL Glucose (74-99) mg/dL POC Glucose (mg/dL) 120 H (75-99) mg/dL Calcium (8.4-10.2) mg/dL Urine Protein Trace H (Negative) Urine Blood Moderate H (Negative) Ur Leukocyte Esterase Small H (Negative) Hyaline Casts 5 H (0-2) /lpf Urine Mucus Rare H (None) /hpf 04/13/17 04/14/17 04/14/17 Range/Units 20:56 07:16 08:12 WBC 20.6 H (3.8-10.6) k/uL RBC 3.32 L (4.30-5.90) m/uL Hgb 10.0 L D (13.0-17.5) gm/dL Hct 30.0 L (39.0-53.0) % Neutrophils # 18.2 H (1.3-7.7) k/uL Monocytes # 1.1 H (0-1.0) k/uL Potassium (3.5-5.1) mmol/L BUN (9-20) mg/dL Glucose (74-99) mg/dL POC Glucose (mg/dL) 143 H 128 H (75-99) mg/dL Calcium (8.4-10.2) mg/dL Urine Protein (Negative) Urine Blood (Negative) Ur Leukocyte Esterase (Negative) Hyaline Casts (0-2) /lpf Urine Mucus (None) /hpf 04/14/17 04/14/17 Range/Units 08:12 11:42 WBC (3.8-10.6) k/uL RBC (4.30-5.90) m/uL Hgb (13.0-17.5) gm/dL Hct (39.0-53.0) % Neutrophils # (1.3-7.7) k/uL Monocytes # (0-1.0) k/uL Potassium 3.3 L (3.5-5.1) mmol/L BUN 31 H (9-20) mg/dL Glucose 110 H (74-99) mg/dL POC Glucose (mg/dL) 121 H (75-99) mg/dL Calcium 7.9 L (8.4-10.2) mg/dL Urine Protein (Negative) Urine Blood (Negative) Ur Leukocyte Esterase (Negative) Hyaline Casts (0-2) /lpf Urine Mucus (None) /hpf Microbiology - Last 24 Hours (Table) 04/13/17 17:00 Urine Culture - Preliminary Urine,Catheterized 04/07/17 08:15 Blood Culture - Final Blood No Growth after 144 hours 04/07/17 07:40 Blood Culture - Final Blood No Growth after 144 hours Assessment and Plan Plan: Impression: #1 Altered mental status with left-sided weakness and suspected CVA/TIA. I suspect that there is a underlying component of dementia. Doubt a superimposed stroke at this point based on the overall presentation. #2 Fall with trauma and fracture of the left proximal femur. Patient is status post ORIF of a left femur fracture and the patient is postop day #2. Surgery got done without any significant complications. #3 Abdominal distention with suspected bowel obstruction, recovered and this was treated in intensive care unit and his abdomen was deflated by an NG tube. Currently no abdominal distention had no nausea. No vomiting. No diarrhea. No other complications from the gastrointestinal standpoint. #4 Left lower lobe atelectasis/infiltrate , stable on a few liters of oxygen nasal cannula #5 Leukocytosis without fever, we'll monitor #6 Sepsis with septic shock and hypotension requiring norepinephrine. #7 Lactic acidosis, recovered #8 Previous history of CVA/TIA with residual right-sided weakness and aphasia. #9 History of hypertension. #10 Gastroesophageal reflux disease. #11 Osteoarthritis. #12 Poor overall functional performance based on the above-mentioned multiple comorbidities. #13 delirium probably an underlying dementia. Plan Dilaudid for pain control. Given as needed for agitation. Aspiration precautions. Pain control. Subcu heparin for DVT prophylaxis. Monitor the white count. No signs of septicemia. We'll follow.
[2017-04-14] MEDS: POTASSIUM CHLORIDE ER 20 MEQ TAB.ER PO SCH ×2 (14:00→16:27)
[2017-04-14] MEDS: SODIUM CHLORIDE 0.9% 1,000 ML IV SCH (16:27)
[2017-04-14 17:10] LABS: Glucose,Whole Blood 133 mg/dL (75-99)
[2017-04-14] MEDS: ATORVASTATIN 10 MG TAB PO SCH (20:55)
[2017-04-14] MEDS: SENNOSIDES-DOCUSATE SODIUM 1 EACH TAB PO SCH (20:55)
[2017-04-15] MEDS: LORazepam 2 MG/ML SYRINGE IV PRN (03:34)
[2017-04-15 06:39] LABS: Glucose,Whole Blood 136 mg/dL (75-99)
[2017-04-15] MEDS: IPRATROPIUM-ALBUTEROL 3 ML NEB INHALATION SCH ×4 (07:41→19:43)
--- NOTE | 2017-04-15 08:35 | P.PN ---
Subjective Principal diagnosis: Continuing care. This is a continuing progress note on an 82-year-old white male essentially admitted for left hip fracture with altered mental status. He seems disoriented today. I suspect sundowning element. He is postop day #3 for left hip arthroplasty. No voiding difficulty stated. But the patient is a poor historian Objective - Vital Signs Vital signs: Vital Signs Temp 98.2 F 04/15/17 07:15 Pulse 67 04/15/17 07:51 Resp 20 04/15/17 07:15 BP 141/71 04/15/17 07:15 Pulse Ox 98 04/15/17 07:41 Intake & Output 04/14/17 04/15/17 04/15/17 18:59 06:59 18:59 Intake Total 100 240 Output Total 800 Balance 100 -560 Intake: Oral 100 240 Output: Urine 800 Other: Voiding Method Indwelling Catheter Indwelling Catheter # Voids 1 - Constitutional General appearance: Present: average body habitus - EENT Eyes: Absent: abnormal pupil - Respiratory Respiratory: bilateral: CTA - Cardiovascular Rhythm: regular Heart sounds: normal: S1, S2 - Gastrointestinal General gastrointestinal: Present: soft. Absent: tenderness - Psychiatric Psychiatric: Present: A&O x's 3 - Labs CBC & Chem 7: 04/14/17 08:12 04/14/17 08:12 Labs: Abnormal Lab Results - Last 24 Hours (Table) 04/14/17 04/14/17 04/14/17 Range/Units 08:12 08:12 11:42 WBC 20.6 H (3.8-10.6) k/uL RBC 3.32 L (4.30-5.90) m/uL Hgb 10.0 L D (13.0-17.5) gm/dL Hct 30.0 L (39.0-53.0) % Neutrophils # 18.2 H (1.3-7.7) k/uL Monocytes # 1.1 H (0-1.0) k/uL Potassium 3.3 L (3.5-5.1) mmol/L BUN 31 H (9-20) mg/dL Glucose 110 H (74-99) mg/dL POC Glucose (mg/dL) 121 H (75-99) mg/dL Calcium 7.9 L (8.4-10.2) mg/dL 04/14/17 04/15/17 Range/Units 17:08 06:37 WBC (3.8-10.6) k/uL RBC (4.30-5.90) m/uL Hgb (13.0-17.5) gm/dL Hct (39.0-53.0) % Neutrophils # (1.3-7.7) k/uL Monocytes # (0-1.0) k/uL Potassium (3.5-5.1) mmol/L BUN (9-20) mg/dL Glucose (74-99) mg/dL POC Glucose (mg/dL) 133 H 136 H (75-99) mg/dL Calcium (8.4-10.2) mg/dL Microbiology - Last 24 Hours (Table) 04/13/17 17:00 Urine Culture - Final Urine,Catheterized Assessment and Plan (1) CVA (cerebral vascular accident) Status: Acute (2) Closed left hip fracture Status: Acute Plan: Postoperative day #3 left hip arthroplasty. Check CBC in a.m. Discharge planning for rehab placement. Delirium question element of dementia. Appreciate specialty input. We'll continue to follow. Anticipate transfer in the next 24-48 hours pending mental status element and rehab status. Time with Patient: Less than 30
[2017-04-15] MEDS: HEPARIN SODIUM,PORCINE 5,000 UNIT/ML 1 ML VIAL SQ SCH ×3 (08:40→23:31)
[2017-04-15] MEDS: HYDROCORTISONE SUCCINATE 100 MG/2 ML VIAL IV SCH ×3 (08:40→23:31)
[2017-04-15] MEDS: PANTOPRAZOLE 40 MG TABLET PO SCH (08:41)
[2017-04-15] MEDS: BACITRACIN 500 UNIT/GM OINT 28.4 GM TUBE TOPICAL SCH ×2 (08:41→20:31)
[2017-04-15] MEDS: INSULIN LISPRO (humaLOG) 300 UNIT/3 ML VIAL SQ SCH ×4 (08:41→21:41)
[2017-04-15] MEDS: amLODIPine 5 MG TAB PO SCH (08:41)
[2017-04-15] MEDS: LISINOPRIL 20 MG TAB PO SCH (08:42)
[2017-04-15 08:43] LABS: Basophils % (A) 0 %; CH 30.4; CHCM 33.5; Eosinophils % (A) 0 %; HCT 28.9 % (39.0-53.0); HDW 2.78; HGB 9.5 gm/dL (13.0-17.5); Luc # (Auto) 0.16; Luc % (Auto) 1; Lymphocytes # (A) 0.8 k/uL (1.0-4.8); Lymphocytes % (A) 5 %; MCHC 32.9 g/dL (31.0-37.0); MCV 91.3 fL (80.0-100.0); Mean Platelet Volume 9.8; Monocytes # (A) 0.8 k/uL (0-1.0); Monocytes % (A) 4 %; Neutrophils # (A) 16.2 k/uL (1.3-7.7); Neutrophils % (A) 90 %; RBC 3.16 m/uL (4.30-5.90); RDW 15.4 % (11.5-15.5); WBC (Perox) 18.95
[2017-04-15 08:56] LABS: Anion Gap 5 mmol/L; Blood Urea Nitrogen 29 mg/dL (9-20); Calcium 7.9 mg/dL (8.4-10.2); Carbon Dioxide 30 mmol/L (22-30); Chloride 105 mmol/L (98-107); Glucose 119 mg/dL (74-99); Non-African American GFR(MDRD) >60 (>60 ml/min/1.73 sqM); Potassium 3.4 mmol/L (3.5-5.1); Sodium 140 mmol/L (137-145)
--- NOTE | 2017-04-15 10:17 | P.PN ---
Subjective Principal diagnosis: Left hip fracture This is an 82-year-old male admitted for pneumonia, left hip fracture and CVA. Patient is status post left hip hemiarthroplasty. This is postoperative day # 3. Patient is resting comfortably in bed. Patient has no new complaints today. Objective - Vital Signs Vital signs: Vital Signs Temp 98.2 F 04/15/17 07:15 Pulse 67 04/15/17 07:51 Resp 20 04/15/17 07:15 BP 141/71 04/15/17 07:15 Pulse Ox 98 04/15/17 07:41 Intake & Output 04/14/17 04/15/17 04/15/17 18:59 06:59 18:59 Intake Total 100 240 Output Total 800 Balance 100 -560 Intake: Oral 100 240 Output: Urine 800 Other: Voiding Method Indwelling Catheter Indwelling Catheter # Voids 1 - Exam Patient is in no acute distress. Incision is clean, dry and intact. Mild drainage present. No surrounding erythema. Compartments are soft. Calf is soft and nontender. Dorsalis pedis pulses are 1+ bilaterally. Patient has 2+ pitting edema bilaterally. Patient has full foot and ankle motion without pain or difficulty. Neurovascular status intact. - Labs CBC & Chem 7: 04/15/17 08:07 04/15/17 08:07 Labs: Abnormal Lab Results - Last 24 Hours (Table) 04/14/17 04/14/17 04/15/17 Range/Units 11:42 17:08 06:37 WBC (3.8-10.6) k/uL RBC (4.30-5.90) m/uL Hgb (13.0-17.5) gm/dL Hct (39.0-53.0) % Neutrophils # (1.3-7.7) k/uL Lymphocytes # (1.0-4.8) k/uL Potassium (3.5-5.1) mmol/L BUN (9-20) mg/dL Glucose (74-99) mg/dL POC Glucose (mg/dL) 121 H 133 H 136 H (75-99) mg/dL Calcium (8.4-10.2) mg/dL 04/15/17 04/15/17 Range/Units 08:07 08:07 WBC 18.0 H (3.8-10.6) k/uL RBC 3.16 L (4.30-5.90) m/uL Hgb 9.5 L (13.0-17.5) gm/dL Hct 28.9 L (39.0-53.0) % Neutrophils # 16.2 H (1.3-7.7) k/uL Lymphocytes # 0.8 L (1.0-4.8) k/uL Potassium 3.4 L (3.5-5.1) mmol/L BUN 29 H (9-20) mg/dL Glucose 119 H (74-99) mg/dL POC Glucose (mg/dL) (75-99) mg/dL Calcium 7.9 L (8.4-10.2) mg/dL Microbiology - Last 24 Hours (Table) 04/13/17 17:00 Urine Culture - Final Urine,Catheterized Assessment and Plan (1) Closed left hip fracture Status: Acute (2) S/P hip hemiarthroplasty Status: Acute Plan: #1. Continue routine postoperative care. #2. Daily dressing changes. #3. Anticoagulation per medicine. #3. Patient may be weightbearing as tolerated with physical therapy. #3. Will continue to follow the patient closely.
[2017-04-15] MEDS: SODIUM CHLORIDE 0.9% 1,000 ML IV SCH (11:53)
[2017-04-15 12:47] LABS: Glucose,Whole Blood 102 mg/dL (75-99)
--- NOTE | 2017-04-15 15:08 | P.PN ---
Subjective Principal diagnosis: CVA/TIA with left-sided weakness, left femur fracture This is a very pleasant 82-year-old gentleman who follows with Dr. Anderson as his primary care physician. 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 He had presented here on 04/05/2017 with concerns regarding possible recurrent CVA/TIA with this time left-sided weakness, confusion. His family felt he was getting confused and we consented help them to the bathroom and apparently the patient had fallen off the commode at some point. He was helped up into a chair and EMS was called. A computed tomography scan of the brain revealed no acute process. Carotid Dopplers revealed no significant stenosis. Chest x-ray showed cardiomegaly with basilar atelectasis. Venous Doppler was negative for DVT of the left. Left hip x-ray revealed suspected acute subcapital fracture of the left proximal femur and the plan was for surgical repair 04/08/2017. He was initially admitted to the regular medical floor. He subsequently developed abdominal distention possible small bowel obstruction. He became very short of breath and tachycardic and an a team was called. He was subsequently transferred here to the intensive care unit. He had been seen and evaluated yesterday by Dr. James. He is seen again today in follow-up. He is awake and alert in no acute distress. He has strong equal hand grasps. His speech does at times seems garbled and other times quite clear. He is maintaining good O2 saturations in the mid 90s on 3 L/m per nasal cannula. He is afebrile. He was on norepinephrine overnight however was turned off approximate 7:30 this morning and he is maintaining O2 mean arterial pressures greater than 60. His urine output has been borderline. Fluid boluses been initiated. He is status post 4 L of fluid resuscitation since admission. Peak WBC is 37 currently at 22.9. Peak lactic acid 4.8, currently 1.3. Renal function is improved currently 1.05 creatinine. Chest x-ray continues to show left basilar atelectasis/infiltrate. He is currently on vancomycin. Blood cultures reveal no growth to date. Urine and sputum cultures pending. The patient is seen again today 04/09/2017 in follow-up in the intensive care unit. He is more awake and alert today as compared to yesterday. He is oriented 3. He denies any shortness of breath, cough or congestion. He is maintaining good O2 saturations in the high 90s on 2 L/m per nasal cannula. He is afebrile. He's been hemodynamically stable. No chest pain, palpitations, lightheadedness or dizziness. He does have some left hip discomfort but currently the pain is well controlled. The plan is for repair of the left proximal femur fracture on 04/12/2017. His aspirin and Plavix remain on hold. He is seen again today 04/10/2017 in follow-up on the regular medical floor. He has continued and ongoing issues with altered mental status. He was quite confused last evening. A sitter is at the bedside. He has no complaints of shortness of breath, cough or congestion. His maintaining good O2 saturations in the mid 90s on room air. He's been afebrile. Hemodynamically stable. The plan is for left hip arthroplasty on 04/12/2017. The patient is seen again today 04/11/2017 in follow-up on the regular medical floor. He is more awake and alert today as compared to yesterday. He is still having issues with altered mental status and occasional confusion however these things were happening prior to his admission according to the . His blood cultures reveal no growth to date. He denies any worsening shortness of breath , cough or congestion. He is maintaining O2 saturations in the low 90s on room air. He's been hemodynamically stable. Afebrile. Chest x-ray reveals stable bilateral subsegmental atelectasis. On 04/13/2017 the patient is postop day #1 following his hip /ORIF surgery. No nausea. No vomiting. No pain. He is awake and alert. No respiratory distress. I've noted his white count has come up to 26.7. This is a concern of this physical monitored very closely. Meanwhile his hemoglobin is at 11.9 and there is no significant drop in hemoglobin postop. Renal function is stable with a creatinine of 1.1. He is moving all 4 extremities. Surgical wound site is clean. Neurovascularly intact. He has been also afebrile for now. On 04/14/2017 the patient is postop day #2 from his ORIF of left hip fracture/ femur fracture. His mentation is still fluctuating. Overnight the patient became quite agitated and based on that he was given Ativan 1 mg every 4-6 hours. This morning his much more comfortable and his sedated and sleeping. No respiratory distress. No fever or chills. White cell count is up. To 20, 000. He has adequate pain control. Surgical wound site is dry clean and intact. His motor the 4 extremities. Family is at the bedside. The patient is seen again today 04/15/2017 on the regular medical floor. This is postoperative day #3 from an ORIF of the left hip. He is currently awake and alert in no acute distress. White count improving currently at 18.0. Hemoglobin 9.5. He is maintaining good O2 saturations in the upper 90s on 2 L/ m per nasal cannula. He is afebrile. No tachypnea. No tachycardia. He remains in negative balance. He is on subcutaneous heparin for DVT prophylaxis. Objective - Vital Signs Vital signs: Vital Signs Temp 98.2 F 04/15/17 07:15 Pulse 67 04/15/17 07:51 Resp 20 04/15/17 07:15 BP 141/71 04/15/17 07:15 Pulse Ox 98 04/15/17 07:41 Intake & Output 04/14/17 04/15/17 04/15/17 18:59 06:59 18:59 Intake Total 100 240 Output Total 800 Balance 100 -560 Intake: Oral 100 240 Output: Urine 800 Other: Voiding Method Indwelling Catheter Indwelling Catheter # Voids 1 - Exam GENERAL EXAM: Alert, fairly comfortable in no acute distress. EYES: Normal reaction of pupils, equal size. NOSE: Clear with pink turbinates. THROAT: No erythema or exudates. NECK: No masses, no JVD. CHEST: No chest wall deformity. LUNGS: Equal air entry with crackles in the left posterior base. CVS: S1 and S2 normal with no audible murmurs, regular rhythm. ABDOMEN: Slightly distended, normal bowel sounds, no guarding or rigidity. Extremities: He has bilateral hand grasps are equal and strong, able to move right lower extremity. Wiggling toes. Peripheral pulses are intact. No clubbing, no cyanosis. - Labs CBC & Chem 7: 04/15/17 08:07 04/15/17 08:07 Labs: Abnormal Lab Results - Last 24 Hours (Table) 04/14/17 04/15/17 04/15/17 Range/Units 17:08 06:37 08:07 WBC 18.0 H (3.8-10.6) k/uL RBC 3.16 L (4.30-5.90) m/uL Hgb 9.5 L (13.0-17.5) gm/dL Hct 28.9 L (39.0-53.0) % Neutrophils # 16.2 H (1.3-7.7) k/uL Lymphocytes # 0.8 L (1.0-4.8) k/uL Potassium (3.5-5.1) mmol/L BUN (9-20) mg/dL Glucose (74-99) mg/dL POC Glucose (mg/dL) 133 H 136 H (75-99) mg/dL Calcium (8.4-10.2) mg/dL 04/15/17 04/15/17 Range/Units 08:07 12:42 WBC (3.8-10.6) k/uL RBC (4.30-5.90) m/uL Hgb (13.0-17.5) gm/dL Hct (39.0-53.0) % Neutrophils # (1.3-7.7) k/uL Lymphocytes # (1.0-4.8) k/uL Potassium 3.4 L (3.5-5.1) mmol/L BUN 29 H (9-20) mg/dL Glucose 119 H (74-99) mg/dL POC Glucose (mg/dL) 102 H (75-99) mg/dL Calcium 7.9 L (8.4-10.2) mg/dL Microbiology - Last 24 Hours (Table) 04/13/17 17:00 Urine Culture - Final Urine,Catheterized Assessment and Plan Plan: Impression: #1 Altered mental status with left-sided weakness and suspected CVA/TIA. #2 Fall with trauma and fracture of the left proximal femur. Status post left hip hemiarthroplasty. Postoperative day #3. #3 Abdominal distention with suspected bowel obstruction, recovered. #4 Left lower lobe atelectasis/infiltrate with acute hypoxic respiratory failure initial P O2 75 on 40% FiO2. Recovered. #5 Leukocytosis with febrile illness of unclear etiology. #6 Sepsis with septic shock and hypotension requiring norepinephrine. #7 Lactic acidosis, recovered #8 Previous history of CVA/TIA with residual right-sided weakness and aphasia. #9 History of hypertension. #10 Gastroesophageal reflux disease. #11 Osteoarthritis. #12 Poor overall functional performance based on the above-mentioned multiple comorbidities. Plan: The patient was seen and evaluated by Dr. Loza. The patient is stable from the pulmonary standpoint. He is again educated regarding the use and importance of the incentive spirometer and cough and deep breathing exercises. We'll continue bronchodilators. He remains on heparin subcutaneous for DVT prophylaxis. We'll continue to follow.
[2017-04-15 16:53] LABS: Glucose,Whole Blood 154 mg/dL (75-99)
[2017-04-15] MEDS: POTASSIUM CHLORIDE ER 20 MEQ TAB.ER PO SCH ×2 (17:33→20:29)
[2017-04-15] MEDS: SENNOSIDES-DOCUSATE SODIUM 1 EACH TAB PO SCH (20:30)
[2017-04-15] MEDS: ATORVASTATIN 10 MG TAB PO SCH (20:30)
[2017-04-15 21:41] LABS: Glucose,Whole Blood 239 mg/dL (75-99)
[2017-04-16 07:13] LABS: Glucose,Whole Blood 133 mg/dL (75-99)
[2017-04-16] MEDS: SODIUM CHLORIDE 0.9% 1,000 ML IV SCH (07:15)
[2017-04-16] MEDS: HEPARIN SODIUM,PORCINE 5,000 UNIT/ML 1 ML VIAL SQ SCH ×2 (08:12→15:19)
[2017-04-16] MEDS: amLODIPine 5 MG TAB PO SCH (08:12)
[2017-04-16] MEDS: INSULIN LISPRO (humaLOG) 300 UNIT/3 ML VIAL SQ SCH ×3 (08:12→17:08)
[2017-04-16] MEDS: HYDROCORTISONE SUCCINATE 100 MG/2 ML VIAL IV SCH ×2 (08:12→15:19)
[2017-04-16] MEDS: PANTOPRAZOLE 40 MG TABLET PO SCH (08:12)
[2017-04-16] MEDS: LISINOPRIL 20 MG TAB PO SCH (08:12)
[2017-04-16] MEDS: IPRATROPIUM-ALBUTEROL 3 ML NEB INHALATION SCH ×3 (08:35→16:15)
[2017-04-16] MEDS: BACITRACIN 500 UNIT/GM OINT 28.4 GM TUBE TOPICAL SCH (08:40)
--- NOTE | 2017-04-16 08:51 | P.DS ---
Providers Date of admission: 04/05/17 19:00 Attending physician: Bryson Anderson Consults: 04/05/17 19:01 Consult Physician Routine Consulting Provider: Suman Avitia Consult Reason/Comments: CVA Do you want consulting provider notified?: Yes 04/06/17 13:15 Consult Physician Urgent Consulting Provider: Tatiana Burt Consult Reason/Comments: left hip fracture Do you want consulting provider notified?: Yes 04/07/17 06:36 Consult Physician Stat Consulting Provider: Ben James Consult Reason/Comments: HIGH LACTIC ACID Do you want consulting provider notified?: Yes, Notify in am 04/12/17 13:35 Consult Physician Routine Consulting Provider: Bryson Anderson Consult Reason/Comments: medical management and anticoagluation Do you want consulting provider notified?: Yes Primary care physician: Bryson Anderson - Discharge Diagnosis(es) (1) CVA (cerebral vascular accident) Current Visit: Yes Status: Acute (2) Closed left hip fracture Current Visit: Yes Status: Acute Priority: Medium Hospital Course: This is a discharge summary 82-year-old white male essentially admitted for left hip repair. He had a long extended course secondary to the fact that he had mental status changes. The patient was also on anticoagulation and this needed to be discontinued for about 5 days prior to him having surgery. Surgery was done. He is now postop day #3 and stabilizing. He still has struggles with sundowning. Multiple consultants including pulmonology has signed off once he is cleared from orthopedic surgery, he'll be discharged to [facility] for rehab. Prognosis is guarded secondary to his multiple comorbidities. We'll continue to follow. Patient Condition at Discharge: Stable Plan - Discharge Summary New Discharge Prescriptions: New Bacitracin Oint 1 applic TOPICAL BID dose Diazepam [Valium] 2.5 mg PO Q8HR PRN #90 tab PRN Reason: Mild Spasms HYDROcodone/APAP 5-325MG [[place] 5-325] 1 each PO Q6HR PRN #120 tab PRN Reason: Pain Scale 1 To 5 Magnesium Hydroxide [Milk of Magnesia Concentrate] 2,400 mg PO DAILY PRN dose PRN Reason: Constipation Sennosides-Docusate Sodium [Senokot-S] 2 each PO HS tab Continue amLODIPine BESYLATE/BENAZEPRIL [Lotrel 5-20 mg Capsule] 1 cap PO DAILY Clopidogrel [Plavix] 75 mg PO DAILY Bisoprolol-Hctz 10-6.25 mg [Ziac 10-6.25 MG] 1 tab PO DAILY predniSONE 20 mg PO BID PRN PRN Reason: Itching Ranitidine HCl [Zantac] 150 mg PO DAILY Discharge Medication List Bisoprolol-Hctz 10-6.25 mg [Ziac 10-6.25 MG] 1 tab PO DAILY 01/25/14 [History] Clopidogrel [Plavix] 75 mg PO DAILY 01/25/14 [History] amLODIPine BESYLATE/BENAZEPRIL [Lotrel 5-20 mg Capsule] 1 cap PO DAILY 01/25/14 [History] Ranitidine HCl [Zantac] 150 mg PO DAILY 04/05/17 [History] predniSONE 20 mg PO BID PRN 04/05/17 [History] Bacitracin Oint 1 applic TOPICAL BID dose 04/16/17 [Rx] Diazepam [Valium] 2.5 mg PO Q8HR PRN #90 tab 04/16/17 [Rx] HYDROcodone/APAP 5-325MG [[place] 5-325] 1 each PO Q6HR PRN #120 tab 04/16/17 [Rx] Magnesium Hydroxide [Milk of Magnesia Concentrate] 2,400 mg PO DAILY PRN dose 04/16/17 [Rx] Sennosides-Docusate Sodium [Senokot-S] 2 each PO HS tab 04/16/17 [Rx] Follow up Appointment(s)/Referral(s): Adonis Reveles DO [Doctor of Osteopathic Medicine] - 2 Weeks Bryson Anderson MD [Primary Care Provider] - 2 Weeks Discharge Disposition: TRANSFER TO SNF/ECF
[2017-04-16 09:04] LABS: CH 30.3; CHCM 33.1; HCT 30.6 % (39.0-53.0); HDW 2.86; HGB 10.2 gm/dL (13.0-17.5); MCH 30.9 pg (25.0-35.0); MCHC 33.4 g/dL (31.0-37.0); MCV 92.4 fL (80.0-100.0); Mean Platelet Volume 10.1; RBC 3.31 m/uL (4.30-5.90); RDW 15.3 % (11.5-15.5); WBC 21.2 k/uL (3.8-10.6)
[2017-04-16 09:13] LABS: ALT 37 U/L (21-72); AST 31 U/L (17-59); Alkaline Phosphatase 82 U/L (38-126); Anion Gap 8 mmol/L; Blood Urea Nitrogen 25 mg/dL (9-20); Carbon Dioxide 29 mmol/L (22-30); Chloride 101 mmol/L (98-107); Glucose 97 mg/dL (74-99); Magnesium 1.9 mg/dL (1.6-2.3); Non-African American GFR(MDRD) >60 (>60 ml/min/1.73 sqM); Potassium 3.6 mmol/L (3.5-5.1); Sodium 138 mmol/L (137-145); Total Bilirubin 1.3 mg/dL (0.2-1.3); Total Protein 4.8 g/dL (6.3-8.2)
--- NOTE | 2017-04-16 10:56 | P.PN ---
Subjective Principal diagnosis: Left hip fracture This is an 82-year-old male admitted for pneumonia, left hip fracture and CVA. Patient is status post left hip hemiarthroplasty. This is postoperative day # 4. Patient is resting comfortably in bed. Patient has no new complaints today. Objective - Vital Signs Vital signs: Vital Signs Temp 97.7 F 04/16/17 07:00 Pulse 119 H 04/16/17 07:00 Resp 14 04/16/17 07:00 BP 160/94 04/16/17 07:00 Pulse Ox 95 04/16/17 07:00 Intake & Output 04/15/17 04/16/17 04/16/17 18:59 06:59 18:59 Intake Total 725 Output Total 700 700 Balance -700 25 Intake: Oral 725 Output: Urine 700 700 Other: Voiding Method Indwelling Catheter Indwelling Catheter # Bowel Movements 1 1 - Exam Patient is in no acute distress. Incision is clean, dry and intact. Mild drainage present. There is mild tenderness to palpation surrounding the incision. No surrounding erythema. Compartments are soft. Calf is soft and nontender. Dorsalis pedis pulses are 1+ bilaterally. Patient has 2+ pitting edema bilaterally. Patient has full foot and ankle motion without pain or difficulty. Neurovascular status intact. - Labs CBC & Chem 7: 04/16/17 08:44 04/16/17 08:44 Labs: Abnormal Lab Results - Last 24 Hours (Table) 04/15/17 04/15/17 04/15/17 Range/Units 12:42 16:51 21:19 WBC (3.8-10.6) k/uL RBC (4.30-5.90) m/uL Hgb (13.0-17.5) gm/dL Hct (39.0-53.0) % BUN (9-20) mg/dL POC Glucose (mg/dL) 102 H 154 H 239 H (75-99) mg/dL Calcium (8.4-10.2) mg/dL Total Protein (6.3-8.2) g/dL Albumin (3.5-5.0) g/dL 04/16/17 04/16/17 04/16/17 Range/Units 07:01 08:44 08:44 WBC 21.2 H (3.8-10.6) k/uL RBC 3.31 L (4.30-5.90) m/uL Hgb 10.2 L (13.0-17.5) gm/dL Hct 30.6 L (39.0-53.0) % BUN 25 H (9-20) mg/dL POC Glucose (mg/dL) 133 H (75-99) mg/dL Calcium 8.0 L (8.4-10.2) mg/dL Total Protein 4.8 L (6.3-8.2) g/dL Albumin 2.5 L (3.5-5.0) g/dL Assessment and Plan (1) Closed left hip fracture Status: Acute (2) S/P hip hemiarthroplasty Status: Acute Plan: #1. Continue routine postoperative care. #2. Daily dressing changes. Patient may shower if no drainage from the incision. #3. Anticoagulation per medicine. #3. Patient may be weightbearing as tolerated with physical therapy. #3. Patient to follow up as an outpatient in [address] Adonis Reveles.
[2017-04-16 11:47] LABS: Glucose,Whole Blood 103 mg/dL (75-99)
[2017-04-16 14:59] VITALS: BP 140/87; RESP 20; TEMP 98.7
[2017-04-16 16:29] VITALS: PULSE 110
--- NOTE | 2017-04-16 16:58 | P.PN ---
Subjective Principal diagnosis: CVA/TIA with left-sided weakness, left femur fracture This is a very pleasant 82-year-old gentleman who follows with Dr. Anderson as his primary care physician. 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 He had presented here on 04/05/2017 with concerns regarding possible recurrent CVA/TIA with this time left-sided weakness, confusion. His family felt he was getting confused and we consented help them to the bathroom and apparently the patient had fallen off the commode at some point. He was helped up into a chair and EMS was called. A computed tomography scan of the brain revealed no acute process. Carotid Dopplers revealed no significant stenosis. Chest x-ray showed cardiomegaly with basilar atelectasis. Venous Doppler was negative for DVT of the left. Left hip x-ray revealed suspected acute subcapital fracture of the left proximal femur and the plan was for surgical repair 04/08/2017. He was initially admitted to the regular medical floor. He subsequently developed abdominal distention possible small bowel obstruction. He became very short of breath and tachycardic and an a team was called. He was subsequently transferred here to the intensive care unit. He had been seen and evaluated yesterday by Dr. James. He is seen again today in follow-up. He is awake and alert in no acute distress. He has strong equal hand grasps. His speech does at times seems garbled and other times quite clear. He is maintaining good O2 saturations in the mid 90s on 3 L/m per nasal cannula. He is afebrile. He was on norepinephrine overnight however was turned off approximate 7:30 this morning and he is maintaining O2 mean arterial pressures greater than 60. His urine output has been borderline. Fluid boluses been initiated. He is status post 4 L of fluid resuscitation since admission. Peak WBC is 37 currently at 22.9. Peak lactic acid 4.8, currently 1.3. Renal function is improved currently 1.05 creatinine. Chest x-ray continues to show left basilar atelectasis/infiltrate. He is currently on vancomycin. Blood cultures reveal no growth to date. Urine and sputum cultures pending. The patient is seen again today 04/09/2017 in follow-up in the intensive care unit. He is more awake and alert today as compared to yesterday. He is oriented 3. He denies any shortness of breath, cough or congestion. He is maintaining good O2 saturations in the high 90s on 2 L/m per nasal cannula. He is afebrile. He's been hemodynamically stable. No chest pain, palpitations, lightheadedness or dizziness. He does have some left hip discomfort but currently the pain is well controlled. The plan is for repair of the left proximal femur fracture on 04/12/2017. His aspirin and Plavix remain on hold. He is seen again today 04/10/2017 in follow-up on the regular medical floor. He has continued and ongoing issues with altered mental status. He was quite confused last evening. A sitter is at the bedside. He has no complaints of shortness of breath, cough or congestion. His maintaining good O2 saturations in the mid 90s on room air. He's been afebrile. Hemodynamically stable. The plan is for left hip arthroplasty on 04/12/2017. The patient is seen again today 04/11/2017 in follow-up on the regular medical floor. He is more awake and alert today as compared to yesterday. He is still having issues with altered mental status and occasional confusion however these things were happening prior to his admission according to the . His blood cultures reveal no growth to date. He denies any worsening shortness of breath , cough or congestion. He is maintaining O2 saturations in the low 90s on room air. He's been hemodynamically stable. Afebrile. Chest x-ray reveals stable bilateral subsegmental atelectasis. On 04/13/2017 the patient is postop day #1 following his hip /ORIF surgery. No nausea. No vomiting. No pain. He is awake and alert. No respiratory distress. I've noted his white count has come up to 26.7. This is a concern of this physical monitored very closely. Meanwhile his hemoglobin is at 11.9 and there is no significant drop in hemoglobin postop. Renal function is stable with a creatinine of 1.1. He is moving all 4 extremities. Surgical wound site is clean. Neurovascularly intact. He has been also afebrile for now. On 04/14/2017 the patient is postop day #2 from his ORIF of left hip fracture/ femur fracture. His mentation is still fluctuating. Overnight the patient became quite agitated and based on that he was given Ativan 1 mg every 4-6 hours. This morning his much more comfortable and his sedated and sleeping. No respiratory distress. No fever or chills. White cell count is up. To 20, 000. He has adequate pain control. Surgical wound site is dry clean and intact. His motor the 4 extremities. Family is at the bedside. The patient is seen again today 04/15/2017 on the regular medical floor. This is postoperative day #3 from an ORIF of the left hip. He is currently awake and alert in no acute distress. White count improving currently at 18.0. Hemoglobin 9.5. He is maintaining good O2 saturations in the upper 90s on 2 L/ m per nasal cannula. He is afebrile. No tachypnea. No tachycardia. He remains in negative balance. He is on subcutaneous heparin for DVT prophylaxis. The patient is seen again today 04/16/2017 in follow-up on the regular medical floor. He is postoperative day #4 from an ORIF of the left hip. He is resting quite comfortably in bed. He is awake and alert. His mental status does wax and wane. Even prior to the hospitalization. He currently denies any shortness of breath, cough or congestion. The plan is for transfer to an extended care facility for continued inpatient rehabilitation. Objective - Vital Signs Vital signs: Vital Signs Temp 98.7 F 04/16/17 14:58 Pulse 110 H 04/16/17 16:29 Resp 20 04/16/17 14:58 BP 140/87 04/16/17 14:58 Pulse Ox 95 04/16/17 14:58 Intake & Output 04/15/17 04/16/17 04/16/17 18:59 06:59 18:59 Intake Total 725 Output Total 700 700 600 Balance -700 25 -600 Intake: Oral 725 Output: Urine 700 700 600 Other: Voiding Method Indwelling Catheter Indwelling Catheter Indwelling Catheter # Bowel Movements 1 2 - Exam GENERAL EXAM: Alert, fairly comfortable in no acute distress. EYES: Normal reaction of pupils, equal size. NOSE: Clear with pink turbinates. THROAT: No erythema or exudates. NECK: No masses, no JVD. CHEST: No chest wall deformity. LUNGS: Equal air entry with crackles in the left posterior base. CVS: S1 and S2 normal with no audible murmurs, regular rhythm. ABDOMEN: Slightly distended, normal bowel sounds, no guarding or rigidity. Extremities: He has bilateral hand grasps are equal and strong, able to move right lower extremity. Wiggling toes. Peripheral pulses are intact. No clubbing, no cyanosis. - Labs CBC & Chem 7: 04/16/17 08:44 04/16/17 08:44 Labs: Abnormal Lab Results - Last 24 Hours (Table) 04/15/17 04/16/17 04/16/17 Range/Units 21:19 07:01 08:44 WBC 21.2 H (3.8-10.6) k/uL RBC 3.31 L (4.30-5.90) m/uL Hgb 10.2 L (13.0-17.5) gm/dL Hct 30.6 L (39.0-53.0) % BUN (9-20) mg/dL POC Glucose (mg/dL) 239 H 133 H (75-99) mg/dL Calcium (8.4-10.2) mg/dL Total Protein (6.3-8.2) g/dL Albumin (3.5-5.0) g/dL 04/16/17 04/16/17 Range/Units 08:44 11:46 WBC (3.8-10.6) k/uL RBC (4.30-5.90) m/uL Hgb (13.0-17.5) gm/dL Hct (39.0-53.0) % BUN 25 H (9-20) mg/dL POC Glucose (mg/dL) 103 H (75-99) mg/dL Calcium 8.0 L (8.4-10.2) mg/dL Total Protein 4.8 L (6.3-8.2) g/dL Albumin 2.5 L (3.5-5.0) g/dL Assessment and Plan Plan: Impression: #1 Altered mental status with left-sided weakness and suspected CVA/TIA. #2 Fall with trauma and fracture of the left proximal femur. Status post left hip hemiarthroplasty. Postoperative day #4. #3 Abdominal distention with suspected bowel obstruction, recovered. #4 Left lower lobe atelectasis/infiltrate with acute hypoxic respiratory failure initial P O2 75 on 40% FiO2. Recovered. #5 Leukocytosis with febrile illness of unclear etiology. #6 Sepsis with septic shock and hypotension requiring norepinephrine. #7 Lactic acidosis, recovered #8 Previous history of CVA/TIA with residual right-sided weakness and aphasia. #9 History of hypertension. #10 Gastroesophageal reflux disease. #11 Osteoarthritis. #12 Poor overall functional performance based on the above-mentioned multiple comorbidities. Plan: The patient was seen and evaluated by Dr. Loza. The patient is stable from the pulmonary standpoint. The plan is for transfer to an extended care facility for continued inpatient rehabilitation.
== END 2017-04-16 17:13 | DRG 469 ==
LOC: EC 15:38 → 6SEL 19:00 → 6ICU 04-07 07:55 → 4MS4W 04-09 19:58
PROVIDERS: ADMIT Family Medicine; ATTEND Family Medicine
PROC: 0SRS0JA Replacement of Left Hip Joint, Femoral Surface with Synthetic Substitute, Uncemented, Open Approach (ICD-10-PCS; principal; 2017-04-12 11:00)
DX: S72.012A Unspecified intracapsular fracture of left femur, initial encounter for closed fracture (principal); A41.9 Sepsis, unspecified organism; R65.21 Severe sepsis with septic shock; J96.01 Acute respiratory failure with hypoxia; J18.9 Pneumonia, unspecified organism; E87.2 Acidosis; I69.351 Hemiplegia and hemiparesis following cerebral infarction affecting right dominant side; F03.90 Unspecified dementia, unspecified severity, without behavioral disturbance, psychotic disturbance, mood disturbance, and anxiety; H91.90 Unspecified hearing loss, unspecified ear; I11.9 Hypertensive heart disease without heart failure; I51.7 Cardiomegaly; K21.9 Gastro-esophageal reflux disease without esophagitis; L40.9 Psoriasis, unspecified; M10.9 Gout, unspecified; M19.90 Unspecified osteoarthritis, unspecified site; T38.0X5A Adverse effect of glucocorticoids and synthetic analogues, initial encounter; W18.11XA Fall from or off toilet without subsequent striking against object, initial encounter; Z79.02 Long term (current) use of antithrombotics/antiplatelets; Z79.52 Long term (current) use of systemic steroids; Z87.891 Personal history of nicotine dependence; Z79.899 Other long term (current) drug therapy; I69.320 Aphasia following cerebral infarction
CPT/HCPCS: 36415; 36600; 70450; 71010; 71020; 73501; 73502; 74000; 74176; 80048; 80053; 80061; 80202; 81001; 82533; 82550; 82553; 82805; 83036; 83605; 83735; 84100; 84132; 84484; 85025; 85027; 85610; 85730; 86850; 86900; 86901; 87040; 87086; 88305; 88311; 93005; 93306; 93880; 94640; 94760; 96365; 96375; 99291

== ENCOUNTER 2017-05-02 17:24 | Inpatient (IN) | payer MEDICARE ==
--- NOTE | 2017-05-02 17:38 | ED ---
General Adult HPI - General Stated complaint: abnormal labs Time Seen by Provider: 05/02/17 17:24 Source: RN notes reviewed - History of Present Illness Initial comments: This is an 82-year-old male presents emergency Department from a extended care facility. Patient was sent in because labs were drawn he had a potassium of 6.4. According to EMS as reports the patient had no symptoms there was no complaints difficulty breathing chest pain or palpitations. Patient continues to deny any symptoms of fever. There's been no complaints of abdominal pain there's been no nausea vomiting diarrhea. There's been no altered mental status per EMS. No other history is available because there is no staff with the patient. Patient is alert and oriented times one which is his baseline. He denies any pain currently. - Related Data Home Medications Medication Instructions Recorded Confirmed Bisoprolol-Hctz 10-6.25 mg [Ziac 1 tab PO DAILY@0900 01/25/14 05/02/17 10-6.25 MG] Clopidogrel [Plavix] 75 mg PO DAILY@89901/25/14 05/02/17 amLODIPine BESYLATE/BENAZEPRIL 1 cap PO DAILY@89901/25/14 05/02/17 [Lotrel 5-20 mg Capsule] Ranitidine HCl [Zantac] 150 mg PO DAILY@0604/05/17 05/02/17 Ammonium Lactate Lotion 1 applic TOPICAL BID 05/02/17 05/02/17 [Lac-Hydrin 12% Lotion] Clotrimazole/Betamethasone Dip 1 applic TOPICAL BID 05/02/17 05/02/17 [Lotrisone Cream] Enoxaparin [Lovenox] 40 mg SQ DAILY@0600 05/02/17 05/02/17 Furosemide [Lasix] 40 mg PO BID@0900,2100 05/02/17 05/02/17 HYDROcodone/APAP 10-325MG [[place]son 1 tab PO Q6H PRN 05/02/17 05/02/17 10-325] Lactose-Reduced Food [Ensure Plus] 120 ml PO AC-TID@,,05/02/17 05/02/17 Magnesium Hydroxide [Milk of 2,400 mg PO DAILY PRN 05/02/17 05/02/17 Magnesia] Potassium Chloride ER [K-Dur 20] 20 meq PO BID@0900,2100 05/02/17 05/02/17 Sennosides-Docusate Sodium 2 tab PO HS@2100 05/02/17 05/02/17 [Senokot-S] Triad Wound Paste 1 applic TOPICAL BID 05/02/17 05/02/17 Previous Rx's Medication Instructions Recorded Diazepam [Valium] 2.5 mg PO Q8HR PRN #90 tab 04/16/17 Allergies Allergy/AdvReac Type Severity Reaction Status Date / Time No Known Allergies Allergy Verified 05/02/17 17:34 Review of Systems ROS Statement: Those systems with pertinent positive or pertinent negative responses have been documented in the HPI. ROS Other: All systems not noted in ROS Statement are negative. 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, hearing loss, and memory impairment, very dry skin History of Any Multi-Drug Resistant Organisms: None Reported Additional Past Surgical History / Comment(s): hemorrhoidectomy, bilateral rotator cuff Past Anesthesia/Blood Transfusion Reactions: No Reported Reaction Past Psychological History: No Psychological Hx Reported Smoking Status: Former smoker - Past Family History Sister(s) Family Medical History: CVA/TIA General Exam - General Exam Comments Initial Comments: GENERAL: Patient is well-developed and well-nourished. Patient is nontoxic and well- hydrated and is in no distress. ENT: Neck is soft and supple. No significant lymphadenopathy is noted. Oropharynx is clear. Moist mucous membranes. Neck has full range of motion without eliciting any pain. EYES: The sclera were anicteric and conjunctiva were pink and moist. Extraocular movements were intact and pupils were equal round and reactive to light. Eyelids were unremarkable. PULMONARY: Unlabored respirations. Good breath sounds bilaterally. No audible rales rhonchi or wheezing was noted. CARDIOVASCULAR: There is a regular rate and rhythm without any murmurs gallops or rubs. ABDOMEN: Soft and nontender with normal bowel sounds. No palpable organomegaly was noted. There is no palpable pulsatile mass. SKIN: Skin is clear with no lesions or rashes and otherwise unremarkable. NEUROLOGIC: Patient is alert and oriented 1. Cranial nerves II through XII are grossly intact. Motor and sensory are also intact. Normal speech, volume and content. Symmetrical smile. MUSCULOSKELETAL: Normal extremities with adequate strength and full range of motion. No lower extremity swelling or edema. No calf tenderness. LYMPHATICS: No significant lymphadenopathy is noted PSYCHIATRIC: Unable to assess secondary to the patient's dementia Course Vital Signs 05/02/17 17:25 Temperature 97.3 F L Pulse Rate 85 Respiratory 18 Rate Blood Pressure 120/71 O2 Sat by Pulse 95 Oximetry Medical Decision Making - Medical Decision Making EKG shows sinus rhythm with occasional PVC at a rate of 89 bpm VA interval 160 QRS is under QT intervals 362 QTC is 440. Patient's EKG shows no ST segment elevation or depression or T wave normalities are noted. Patient's potassium came back elevated so started the patient on lactulose. Patient's potassium was 6.4 and patient had acute renal verified that the patient. - Lab Data Result diagrams: 05/02/17 17:46 05/02/17 17:46 Lab Results 05/02/17 05/02/17 05/02/17 Range/Units 17:46 17:46 17:46 WBC 17.3 H (3.8-10.6) k/uL RBC 3.81 L (4.30-5.90) m/uL Hgb 12.2 L (13.0-17.5) gm/dL Hct 38.3 L (39.0-53.0) % MCV 100.5 H (80.0-100.0) fL MCH 32.1 (25.0-35.0) pg MCHC 31.9 (31.0-37.0) g/dL RDW 17.6 H (11.5-15.5) % Plt Count 381 (150-450) k/uL Neutrophils % 81 % Lymphocytes % 9 % Monocytes % 7 % Eosinophils % 1 % Basophils % 0 % Neutrophils # 13.9 H (1.3-7.7) k/uL Lymphocytes # 1.6 (1.0-4.8) k/uL Monocytes # 1.2 H (0-1.0) k/uL Eosinophils # 0.1 (0-0.7) k/uL Basophils # 0.1 (0-0.2) k/uL Anisocytosis Slight Macrocytosis Slight Sodium 144 (137-145) mmol/L Potassium 6.4 H* (3.5-5.1) mmol/L Chloride 104 (98-107) mmol/L Carbon Dioxide 26 (22-30) mmol/L Anion Gap 14 mmol/L BUN 76 H (9-20) mg/dL Creatinine 4.10 H (0.66-1.25) mg/dL Est GFR (MDRD) Af Amer 17 (>60 ml/min/1.73 sqM) Est GFR (MDRD) Non-Af 14 (>60 ml/min/1.73 sqM) Glucose 93 (74-99) mg/dL Calcium 9.4 (8.4-10.2) mg/dL Magnesium 2.0 (1.6-2.3) mg/dL Total Bilirubin 1.0 (0.2-1.3) mg/dL AST 38 (17-59) U/L ALT 37 (21-72) U/L Alkaline Phosphatase 185 H (38-126) U/L Total Creatine Kinase 125 (55-170) U/L CK-MB (CK-2) 3.7 H* (0.0-2.4) ng/mL CK-MB (CK-2) Rel Index 3.0 Troponin I 0.029 (0.000-0.034) ng/mL Total Protein 6.3 (6.3-8.2) g/dL Albumin 3.4 L (3.5-5.0) g/dL Disposition Clinical Impression: Acute renal failure, Hyperkalemia Disposition: ADMITTED IP TO THIS HOSP Referrals: Bryson Anderson MD [Primary Care Provider] - 1-2 days Time of Disposition: 18:34
[2017-05-02 18:00] LABS: Anisocytosis Slight; Basophils # (A) 0.1 k/uL (0-0.2); Basophils % (A) 0 %; CH 31.6; CHCM 31.7; Eosinophils # (A) 0.1 k/uL (0-0.7); Eosinophils % (A) 1 %; HCT 38.3 % (39.0-53.0); HDW 2.65; HGB 12.2 gm/dL (13.0-17.5); Luc % (Auto) 2; Lymphocytes # (A) 1.6 k/uL (1.0-4.8); Lymphocytes % (A) 9 %; MCH 32.1 pg (25.0-35.0); MCHC 31.9 g/dL (31.0-37.0); MCV 100.5 fL (80.0-100.0); Macrocytosis Slight; Mean Platelet Volume 9.2; Monocytes # (A) 1.2 k/uL (0-1.0); Monocytes % (A) 7 %; Neutrophils # (A) 13.9 k/uL (1.3-7.7); Neutrophils % (A) 81 %; RBC 3.81 m/uL (4.30-5.90); RDW 17.6 % (11.5-15.5); WBC 17.3 k/uL (3.8-10.6); WBC (Perox) 17.84
[2017-05-02 18:22] LABS: Calcium 9.4 mg/dL (8.4-10.2); Potassium 6.4 mmol/L (3.5-5.1); Total Protein 6.3 g/dL (6.3-8.2)
[2017-05-02] MEDS ORDERED: LACTULOSE 20 GM/30 ML CUP PO ONE (18:32)
[2017-05-02 18:38] LABS: Troponin I 0.029 ng/mL (0.000-0.034)
[2017-05-02 18:49] LABS: Creatine Kinase MB 3.7 ng/mL (0.0-2.4)
[2017-05-02] MEDS ORDERED: SODIUM CHLORIDE 0.9% 1,000 ML IV ONE (19:07)
[2017-05-02 19:33] LABS: Appearance,Urine Cloudy (Clear); Bacteria,Urine Few /hpf; Bilirubin,Urine Negative (Negative); Glucose,Urine (UA) Negative (Negative); Ketones,Urine Negative (Negative); Leukocyte Esterase,Urine Large (Negative); Mucus,Urine Rare /hpf; Nitrite,Urine Negative (Negative); Particle Count 50410; Protein,Urine 1+ (Negative); RBC,Urine 71 /hpf (0-5); Specific Gravity,Urine 1.011 (1.001-1.035); UA Billing (MACRO vs. MICRO) MICRO; WBC,Urine 155 /hpf (0-5)
[2017-05-02] MEDS ORDERED: [UNRECOGNIZED DRUG - OTHER] TOPICAL SCH (21:00)
[2017-05-02] MEDS ORDERED: MAGNESIUM HYDROXIDE 2,400 MG/10 ML CUP PO PRN (21:00)
[2017-05-02] MEDS ORDERED: NON-FORMULARY DRUG (Lactose-Reduced Food [Ensure Plus] 120 ML) PO SCH (21:00)
[2017-05-02] MEDS: DIAZEPAM 5 MG TAB PO PRN (21:46)
[2017-05-02] MEDS: HYDROcodone/APAP 10-325MG 1 EACH TAB PO PRN (21:47)
[2017-05-02] MEDS: AMMONIUM LACTATE 12% LOTION 225 GM BTL TOPICAL SCH (22:46)
[2017-05-02] MEDS: SENNOSIDES-DOCUSATE SODIUM 1 EACH TAB PO SCH (22:46)
[2017-05-02] MEDS: CLOTRIMAZOLE/BETAMETH 1-0.05% CREAM 45 GM TUBE TOPICAL SCH (22:46)
[2017-05-03] MEDS: FAMOTIDINE 20 MG TAB PO SCH (05:36)
[2017-05-03] MEDS: LACTULOSE 20 GM/30 ML CUP PO SCH ×2 (05:36→17:40)
[2017-05-03] MEDS ORDERED: ENOXAPARIN 40 MG/0.4 ML SYRINGE SQ SCH (06:00)
[2017-05-03 06:39] LABS: Anisocytosis Slight; Basophils # (A) 0.1 k/uL (0-0.2); Basophils % (A) 0 %; CH 30.5; CHCM 30.4; Eosinophils # (A) 0.1 k/uL (0-0.7); Eosinophils % (A) 1 %; HCT 36.3 % (39.0-53.0); HDW 2.49; HGB 11.3 gm/dL (13.0-17.5); Hypochromasia Moderate; Luc # (Auto) 0.32; Luc % (Auto) 2; Lymphocytes # (A) 1.2 k/uL (1.0-4.8); Lymphocytes % (A) 9 %; MCH 31.5 pg (25.0-35.0); MCHC 31.1 g/dL (31.0-37.0); MCV 101.4 fL (80.0-100.0); Macrocytosis Moderate; Mean Platelet Volume 8.4; Monocytes % (A) 7 %; Neutrophils # (A) 10.8 k/uL (1.3-7.7); Neutrophils % (A) 80 %; RBC 3.58 m/uL (4.30-5.90); RDW 16.7 % (11.5-15.5); WBC 13.5 k/uL (3.8-10.6); WBC (Perox) 14.61
[2017-05-03 07:03] LABS: Calcium 8.6 mg/dL (8.4-10.2); Potassium 5.2 mmol/L (3.5-5.1); Total Protein 5.4 g/dL (6.3-8.2)
[2017-05-03] MEDS: amLODIPine 5 MG TAB PO SCH ×2 (08:42→10:07)
[2017-05-03] MEDS: LISINOPRIL 20 MG TAB PO SCH ×2 (08:43→10:07)
[2017-05-03] MEDS: CLOPIDOGREL 75 MG TAB PO SCH ×2 (08:43→10:07)
[2017-05-03] MEDS: AMMONIUM LACTATE 12% LOTION 225 GM BTL TOPICAL SCH ×2 (11:37→20:34)
[2017-05-03] MEDS: SODIUM CHLORIDE 0.9% 1,000 ML IV SCH (11:37)
[2017-05-03] MEDS: CLOTRIMAZOLE/BETAMETH 1-0.05% CREAM 45 GM TUBE TOPICAL SCH ×2 (11:37→20:34)
[2017-05-03] MEDS: LEVOFLOXACIN 500MG-D5W PMX 500 MG in DEXTROSE/WATER 1 100ML.BAG IVPB SCH (18:49)
[2017-05-03] MEDS: PANTOPRAZOLE 40 MG/10 ML VIAL IVP SCH (18:50)
[2017-05-03] MEDS: SENNOSIDES-DOCUSATE SODIUM 1 EACH TAB PO SCH (20:16)
[2017-05-03] MEDS: DIAZEPAM 5 MG TAB PO PRN (20:28)
[2017-05-03] MEDS: LORazepam 2 MG/ML SYRINGE IV PRN (21:44)
[2017-05-03] MEDS: HYDROcodone/APAP 10-325MG 1 EACH TAB PO PRN (21:50)
[2017-05-04] MEDS: LORazepam 2 MG/ML SYRINGE IV PRN ×2 (03:38→21:13)
[2017-05-04] MEDS: SODIUM CHLORIDE 0.9% 1,000 ML IV SCH ×2 (03:43→17:24)
[2017-05-04] MEDS: ENOXAPARIN 30 MG/0.3 ML SYRINGE SQ SCH (06:05)
[2017-05-04] MEDS: LACTULOSE 20 GM/30 ML CUP PO SCH (06:05)
[2017-05-04] MEDS: FAMOTIDINE 20 MG TAB PO SCH (06:06)
--- NOTE | 2017-05-04 06:56 | CONS ---
DATE OF CONSULT: 05/03/17 REASON FOR CONSULTATION: Renal failure. HISTORY OF PRESENT ILLNESS: The patient is a 82-year-old male who [facility] with abnormal labs. Potassium was noted to be 6.4. The patient has not been communicating much according to his . His serum creatinine was a 4.1 with previous creatinine of 0.9 on 04/16/17. Currently the patient has an indwelling Granados catheter. He has had good urine output about close to 1 L overnight. He is also maintained on IV fluids at 75 mL an hour. The patient was on potassium supplement as well as wilman inhibitors prior to admission. He did get Lactulose in the ER. He was not given Kayexalate. Repeat potassium this morning is down to 5.2. PAST MEDICAL HISTORY: Hypertension, generalized debility, osteoarthritis, history of CVA/TIA, gastroesophageal reflux disease, residual aphasia after the CVA. Past surgical history: Hemorrhoidectomy, bilateral rotator cuff surgery. SOCIAL HISTORY: The patient is a former smoker. No history of drug abuse or alcohol use. Currently resides at a prison. REVIEW OF SYSTEMS: As per HPI. Other systems negative. Medications at home prior to admission include: 1. Lotrel. 2. Plavix. 3. ( ) hydrochlorothiazide. 4. Lovenox. 5. Lasix. 6. [place]. 7. Potassium. ALLERGIES: NONE. On examination, the patient is comfortable, he is not communicating much. He does open his eyes to verbal stimuli. Blood pressure is 124/56, heart rate 82 per minute, she is afebrile. Examination of the heart S1, S2. Examination of the lungs bilateral breath sounds are heard. Abdomen soft, nontender. Examination of the lower extremities shows bilateral extremities to be wrapped. He has an open sore on his right foot and there is edema according to nursing staff. Chronic skin changes are noted. FLOORING INSTALLER: Cannot be performed in detail. Labs show sodium 144, potassium 5.2, chloride 109, BUN 71, and serum creatinine 3.52, UA shows WBC 155. Leukocyte esterase large. 1+ protein. ASSESSMENT: 1. Acute kidney injury most likely acute tubular necrosis, currently nonoliguric. There may have been a component of obstructive uropathy and urine retention. Currently the patient has an indwelling Granados catheter which we will continue. He is also maintained on IV fluids which I will continue for now. Continue to hold off on the wilman inhibitors and potassium supplementation. 2. Hyperkalemia associated with acute kidney injury and setting up use of Wilman inhibitors and potassium supplementation. Currently improved. Will continue to monitor for now. Hold off on the Kayexalate. 3. Chronic kidney disease, NKF Stage III with previous creatinine of 0.9 on . Etiology likely nephrosclerosis. 4. Pyuria, rule out urinary tract infection. Will check urine culture if not done. PLAN: Continue IV fluids. Recheck labs in the a.m. Continue with indwelling Granados. Check urine culture. Continue to hold off on the wilman inhibitors and potassium supplementation. Thank you for this consultation. I will continue to follow the patient with you during this hospitalization. MARCELO
--- NOTE | 2017-05-04 09:01 | P.PN ---
Subjective Patient is seen in follow-up for acute kidney injury. His potassium was 6.4 and creatinine was 4.1 on admission. With medical treatment and IV hydration his potassium was 5.2 and creatinine was down to 3.5 to as of yesterday. Baseline creatinine is 1. Patient's currently resting in bed. He is not a very reliable historian. Potassium supplementation as well as DANIEL inhibitor has been discontinued. He is maintained on IV fluids. He has a Granados catheter in place. He is nonoliguric. Vital signs are stable. General: The patient appeared well nourished and normally developed. HEENT: Head exam is unremarkable. Neck is without jugular venous distension. LUNGS: Lungs are clear to auscultation and percussion. Breath sounds decreased. HEART: Rate and Rhythm are regular. First and second heart sounds normal. No murmurs, rubs or gallops. ABDOMEN: Abdominal exam reveals normal bowel sounds. Non-tender and non- distended. No evidence of peritonitis. EXTREMITITES: No clubbing, cyanosis, or edema. Objective - Vital Signs Vital signs: Vital Signs Temp 98.4 F 05/04/17 04:00 Pulse 80 05/04/17 04:00 Resp 17 05/04/17 04:00 BP 124/56 05/04/17 04:00 Pulse Ox 97 05/04/17 04:00 Intake & Output 05/03/17 05/04/17 05/04/17 18:59 06:59 18:59 Intake Total 840 Output Total 1800 2050 Balance -1800 -1210 Weight 64.5 kg 63.5 kg Intake: Intake, IV Titration 600 Amount Sodium Chloride 0.9% 1, 600 000 ml @ 75 mls/hr IV . [id number] [facility] Rx#:[id number] Oral 240 Output: Urine 1800 0 Other: Voiding Method Indwelling Catheter Indwelling Catheter # Voids 1 # Bowel Movements 3 1 - Labs CBC & Chem 7: 05/03/17 06:11 05/03/17 06:11 Labs: Microbiology - Last 24 Hours (Table) 05/03/17 03:00 Urine Culture - Preliminary Urine,Catheterized Assessment and Plan Plan: Assessment: #1. Nonoliguric acute kidney injury mostly prerenal from diuresis. There may have also been a component of urinary retention. Improving with IV hydration. Creatinine was 4.1 on admission and was down to 3.5 as of yesterday. Labs from today are pending at this time. #2. Hyperkalemia secondary to acute kidney injury and potassium supplementation. Improved with medical treatment. #3. Pyuria. Follow-up urine culture. Plan: Continue normal saline at 75 mL an hour. Avoid nephrotoxic agents and hypotensive episodes. Follow-up morning labs and repeat electrolytes in the morning. Continue to hold off on DANIEL inhibitor, diuretics and potassium supplementation.
[2017-05-04 09:40] LABS: Calcium 8.5 mg/dL (8.4-10.2); Potassium 3.5 mmol/L (3.5-5.1)
[2017-05-04] MEDS: amLODIPine 5 MG TAB PO SCH (10:39)
[2017-05-04] MEDS: CLOTRIMAZOLE/BETAMETH 1-0.05% CREAM 45 GM TUBE TOPICAL SCH ×2 (10:40→20:59)
[2017-05-04] MEDS: CLOPIDOGREL 75 MG TAB PO SCH (10:40)
[2017-05-04] MEDS: PANTOPRAZOLE 40 MG/10 ML VIAL IVP SCH (10:40)
[2017-05-04] MEDS: AMMONIUM LACTATE 12% LOTION 225 GM BTL TOPICAL SCH ×2 (10:41→20:59)
[2017-05-04] MEDS: HYDROcodone/APAP 10-325MG 1 EACH TAB PO PRN (12:50)
--- NOTE | 2017-05-04 12:52 | HP ---
DATE OF SERVICE: 05/03/2017 I am covering for Dr. Anderson. CHIEF COMPLAINTS: Abnormal labs as well as renal failure. HISTORY OF PRESENT ILLNESS: This 82-year-old gentleman with past medical history of CVA, TIA, gastroesophageal reflux disease, hypertension, DJD being followed by Dr. Anderson in the outpatient setting complaining of diarrhea. The patient apparently had multiple labs drawn from the ECF and patient was found to have acute renal failure. The potassium was found to be 6.5, creatinine 1.10 and the patient was taken to [facility] and admitted for further evaluation and treatment. The patient unable to give a coherent history and most of the history is taken from my discussion with staff and as well as review of the chart. PAST MEDICAL HISTORY: History of CVA, TIA, gastroesophageal reflux disease, hypertension, history of DJD. Medications prior to admission include home medications: 1. Lotrel 5/20 p.o daily. 3. Senokot S q.h.s p.r.n 4. Zantac 150 mg 5. K-Dur 10 mEq p.o. bid 6. Milk of Magnesia. 7. Ensure Plus 8. [place] 10 mg q.6 p.r.n 9. Lasix 40 mg p.o bid 10. Lovenox 40 mg subcu daily. 11. Valium 2.5 mg q.8. 12. Lotrisone application b.i.d. 13. Plavix 75 mg daily. 14. Ziac 1 tablet p.o daily. 15. Lac-Hydrin topically b.i.d. ALLERGIES: NONE. Family history, social history and review of systems could not be taken at length because of the change in mental status. History of CVA in the family. Social history unknown. PHYSICAL EXAMINATION: The patient is stuporous, conscious. Pulse is 90, blood pressure 130/84, respirations 16, temperature 98 degrees. Pulse ox 97% on room air. HEENT: Conjunctivae normal. Oral mucosa dry. NECK: No jugular venous distention. No carotid bruits. No lymph node enlargement. CARDIOVASCULAR: S1, S2. No S3, no S4. RESPIRATORY: Breath sounds diminished at the bases. A few scattered rhonchi and crackles. ABDOMEN: Soft, mild diffuse distention, no mass palpable. LEGS: No edema, no swelling. NERVOUS SYSTEM: Diffusely weak. LABS: WBC 17.7, hemoglobin 12.8, potassium 6.4. Creatinine 4.10. UA noted. ASSESSMENT: 1. Acute renal failure possibly prerenal multifactorial. 2. Hyperkalemia secondary to renal failure. 3. Nausea, vomiting and diarrhea, possibly rule out C. difficile colitis. 4. Possible urinary tract infection with sepsis. 5. Increased WBC. RECOMMENDATIONS AND DISCUSSION: In this 82-year-old gentleman who presented with multiple complex medical issues at this time, I recommend continue the current medications. Continue with IV fluids. Monitor labs closely. I also recommend empiric antibiotics. Follow the cultures to rule out the possibility of any sepsis. Otherwise the DVT prophylaxis has been ordered as well as I also recommend Protonix also. The prognosis is guarded because of multiple complex medical issues. Further recommendations to follow. MTDD
--- NOTE | 2017-05-04 15:00 | XR ---
EXAMINATION TYPE: XR abdomen acute w cxr DATE OF EXAM: 05/04/2017 COMPARISON: 04/13/2017 HISTORY: 82-year-old male with abdominal pain TECHNIQUE: Supine, upright, and left side down lateral decubitus views of the abdomen are obtained. FINDINGS: Frontal view of the chest shows low lung volumes. There is diffuse interstitial density with mild car diomegaly. No leopoldo consolidation or significant pleural effusion. No evidence for free intraperitoneal air. Mildly dilated transverse colon up to 6.4 cm. Additional prominent air-filled small bowel loops thoug h not abnormally dilated. Multiple pelvic phleboliths. Vascular calcifications in the pelvis are also present. Left hip hemiarthroplasty partially visualized. IMPRESSION: 1. Chest with low lung volumes, mild cardiomegaly, and interstitial densities. Correlate to exclude m ild CHF. 2. No evidence for free air 3. Dilated colon measuring up to 6.4 cm. Additional prominent air-filled small bowel loops though not abnormally dilated. Correlate for a generalized ileus. Follow-up would be helpful.
[2017-05-04] MEDS ORDERED: SODIUM CHLORIDE 0.9% 1,000 ML IV SCH (16:30)
[2017-05-04] MEDS: LEVOFLOXACIN 500MG-D5W PMX 500 MG in DEXTROSE/WATER 1 100ML.BAG IVPB SCH (17:26)
[2017-05-04] MEDS: IOHEXOL 350 MG/ML 25 ML BOTTLE (ORAL USE) PO PRN ×2 (18:02→18:55)
[2017-05-04] MEDS: SENNOSIDES-DOCUSATE SODIUM 1 EACH TAB PO SCH (20:04)
--- NOTE | 2017-05-04 20:15 | CT ---
EXAMINATION TYPE: CT ChestAbdPelvis wo con DATE OF EXAM: 05/04/2017 COMPARISON: 04/07/2017 HISTORY: 82-year-old male with abdominal distension. Acute renal failure and nausea, vomiting and grzegorz rrhea. Elevated WBCs. TECHNIQUE: Contiguous axial scanning of the chest, abdomen, and pelvis without IV contrast. Coronal a nd sagittal reconstructions performed. CT DLP: 811.20 mGycm Automated exposure control for dose reduction was used. FINDINGS: CHEST: The heart is upper limits of normal in size. Some mitral annular calcifications are present. No peric ardial effusion. Mild aneurysm of the ascending aorta at 4.0 cm. There is conventional arterial vessel branching anato my. Borderline ectasia of the upper descending thoracic aorta at 3.0 cm. Additional ectasia of the lo wer descending thoracic aorta at 2.5 cm. Prominent contrast distention of the esophagus reaching up to the thoracic inlet suggests severe betito roesophageal reflux. Borderline to mildly enlarged caliber to the main right and left pulmonary arteries at 2.7 and 2.5 cm , respectively, suggesting underlying pulmonary artery hypertension. No thoracic lymphadenopathy. No significant pleural effusion. Respiratory motion limits assessment for small pulmonary nodules. Th ere are strandy areas of atelectasis or scarring at the lung bases. No consolidation or septal thicke yakov to support CHF. ABDOMEN: Excessive artifacts from the patient's arms down by his side causing further limitations to a noncont rast CT. Within this limitation, noncontrast appearance of the liver, left adrenal gland, right kidney, spleen with Hilar splenule, and atrophic pancreas show no gross abnormality. 3.2 cm hypodense lesion within the left kidney incompletely characterized on this noncontrast CT, pro bable cyst. Mild diffuse thickening of the right adrenal gland without discrete nodularity. The gallbladder is contracted around multiple calculi measuring up to 2.4 cm. No dilated small bowel or free air. Mild ascites seen along the left paracolic gutter. Redemonstrated retroperitoneal lipomatosis with mass effect onto the intraperitoneal structures. The cecum is dilated up to 9.4 cm, coronal image 26 in transverse colon up to 5.4 cm. Oral contrast h as progressed to the rectum with some density stool material is present there is some eccentric wall thickening along the right lateral aspect of the rectum could represent fold redundancy. Correlate wi th direct visualization, axial image 106 and coronal image 77. No obstructing lesion is seen. Pelvis: Granados catheter decompressing the bladder. Extensive artifact from the patient's left hip arthroplasty limiting assessment of the pelvis. No abnormal fluid collection seen in the pelvis or evidence of ly mphadenopathy. The previous right iliopsoas intramuscular hematoma has largely resolved. Bones: Left hip hemiarthroplasty. Degenerative changes lower lumbar spine. Endplate spondylosis lower thorac ic spine. There is a 3.9 x 1.4 cm lipoma of the left teres minor incidentally noted. Similar superior endplate compression deformity of T12 vertebral body. No osseous destructive process . IMPRESSION: 1. SEVERE GASTROESOPHAGEAL REFLUX WITH CONTRAST COLUMN EXTENDING UP TO THE THORACIC INLET. 2. CHEST RADIOGRAPHIC FINDINGS RELATED TO HYPOVENTILATORY CHANGES. NO OVERT CHF. 3. 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 4. THE GALLBLADDER IS AGAIN SEEN CONTRACTED AROUND MULTIPLE GALLSTONES. 5. NO TRANSITION POINT TO SUGGEST SMALL OR LARGE BOWEL OBSTRUCTION. CECAL DILATATION UP TO 9.4 CM AND PROMINENT DISTENTION OF THE REMAINDER OF THE COLON PROBABLY RELATES TO AN ILEUS. MONITORING RECOMME NDED EXCESSIVE CECAL DILATATION PLACES IT AT RISK FOR PERFORATION. 6. SOME ECCENTRIC WALL THICKENING ALONG THE RIGHT LATERAL ASPECT OF THE RECTUM PROBABLY REPRESENTS FO LD REDUNDANCY. CORRELATE WITH DIRECT VISUALIZATION TO EXCLUDE NEOPLASM. 7. 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
[2017-05-04] MEDS ORDERED: ONDANSETRON 4 MG/2 ML VIAL IVP PRN (20:49)
[2017-05-04] MEDS: ACETAMINOPHEN IV (For NPO) 1,000 MG in EMPTY BAG 1 BAG IVPB PRN (21:31)
[2017-05-04 22:40] LABS: Glucose,Whole Blood 98 mg/dL (75-99)
[2017-05-04] MEDS ORDERED: SODIUM CHLORIDE 0.9% 1,000 ML IV ONE (23:13)
[2017-05-04] MEDS ORDERED: ACETAMINOPHEN IV (For NPO) 1,000 MG in EMPTY BAG 1 BAG IVPB STA (23:37)
[2017-05-04 23:59] LABS: Anisocytosis Slight; Basophils % (A) 0 %; CH 31.3; CHCM 30.6; Eosinophils # (A) 0.1 k/uL (0-0.7); Eosinophils % (A) 0 %; HCT 36.1 % (39.0-53.0); Hypochromasia Moderate; Luc # (Auto) 0.12; Luc % (Auto) 1; Lymphocytes # (A) 0.4 k/uL (1.0-4.8); Lymphocytes % (A) 3 %; MCH 31.4 pg (25.0-35.0); MCHC 30.4 g/dL (31.0-37.0); MCV 103.2 fL (80.0-100.0); Macrocytosis Moderate; Mean Platelet Volume 8.9; Monocytes # (A) 0.5 k/uL (0-1.0); Monocytes % (A) 3 %; Neutrophils # (A) 13.6 k/uL (1.3-7.7); Neutrophils % (A) 93 %; RBC 3.49 m/uL (4.30-5.90); RDW 16.5 % (11.5-15.5); WBC 14.7 k/uL (3.8-10.6); WBC (Perox) 15.17
[2017-05-05] LABS: Calcium 8.5 mg/dL (8.4-10.2); Potassium 3.5 mmol/L (3.5-5.1)
[2017-05-05] MEDS: PIPERACILLIN-TAZOBACTAM 3.375 GM in DEXTROSE/WATER 1 50ML.BAG IVPB SCH ×3 (01:00→15:30)
[2017-05-05] MEDS: SODIUM CHLORIDE 0.9% 1,000 ML IV SCH ×2 (01:16→08:34)
[2017-05-05 03:53] LABS: Calcium 8.4 mg/dL (8.4-10.2); Potassium 3.5 mmol/L (3.5-5.1)
[2017-05-05] MEDS: FAMOTIDINE 20 MG TAB PO SCH (06:20)
[2017-05-05] MEDS: ENOXAPARIN 30 MG/0.3 ML SYRINGE SQ SCH (06:22)
[2017-05-05] MEDS: PANTOPRAZOLE 40 MG/10 ML VIAL IVP SCH (08:33)
[2017-05-05] MEDS: CLOPIDOGREL 75 MG TAB PO SCH (08:33)
[2017-05-05] MEDS: amLODIPine 5 MG TAB PO SCH (08:33)
[2017-05-05] MEDS: CLOTRIMAZOLE/BETAMETH 1-0.05% CREAM 45 GM TUBE TOPICAL SCH ×2 (08:41→21:39)
[2017-05-05] MEDS: AMMONIUM LACTATE 12% LOTION 225 GM BTL TOPICAL SCH ×2 (08:42→21:39)
[2017-05-05] MEDS: ACETAMINOPHEN IV (For NPO) 1,000 MG in EMPTY BAG 1 BAG IVPB PRN (09:49)
--- NOTE | 2017-05-05 10:10 | P.PN ---
Subjective Patient is seen in follow-up for acute kidney injury. His potassium was 6.4 on admission. Renal function is improving with creatinine down to 1.9. Hyperkalemia has resolved. Baseline creatinine is 1. Patient's currently resting in bed. He is not a very reliable historian. Potassium supplementation as well as DANIEL inhibitor have been discontinued. He is maintained on IV fluids. He has a Granados catheter in place. He is nonoliguric. Vital signs are stable. General: The patient appeared well nourished and normally developed. HEENT: Head exam is unremarkable. Neck is without jugular venous distension. LUNGS: Lungs are clear to auscultation and percussion. Breath sounds decreased. HEART: Rate and Rhythm are regular. First and second heart sounds normal. No murmurs, rubs or gallops. ABDOMEN: Abdominal exam reveals normal bowel sounds. Non-tender and non- distended. No evidence of peritonitis. EXTREMITITES: No clubbing, cyanosis, or edema. Objective - Vital Signs Vital signs: Vital Signs Temp 100.4 F H 05/05/17 08:00 Pulse 110 H 05/05/17 08:00 Resp 18 05/05/17 08:00 BP 127/55 05/05/17 08:00 Pulse Ox 98 05/05/17 08:00 Intake & Output 05/04/17 05/05/17 05/05/17 18:59 06:59 18:59 Intake Total 826 1750 0 Output Total 500 250 Balance 326 1500 0 Weight 63.2 kg Intake: Intake, IV Titration 600 900 Amount Piperacillin-Tazobactam 3 50 .375 gm In Dextrose/Water 1 50ml.bag @ 12.5 mls/hr IVPB Q8HR [facility] Rx#: [id number] Sodium Chloride 0.9% 1, 600 000 ml @ 100 mls/hr IV . Q10H [facility] Rx#:[id number] Sodium Chloride 0.9% 1, 250 000 ml @ 50 mls/hr IV . Q20H [facility] Rx#:[id number] Sodium Chloride 0.9% 1, 600 000 ml @ 75 mls/hr IV . [id number] [facility] Rx#:[id number] Oral 226 850 0 Output: Urine 500 250 Other: Voiding Method Indwelling Catheter Indwelling Catheter - Labs CBC & Chem 7: 05/04/17 23:29 05/05/17 03:21 Labs: Abnormal Lab Results - Last 24 Hours (Table) 05/04/17 05/04/17 05/04/17 Range/Units 23:24 23:29 23:29 WBC 14.7 H (3.8-10.6) k/uL RBC 3.49 L (4.30-5.90) m/uL Hgb 11.0 L (13.0-17.5) gm/dL Hct 36.1 L (39.0-53.0) % MCV 103.2 H (80.0-100.0) fL MCHC 30.4 L (31.0-37.0) g/dL RDW 16.5 H (11.5-15.5) % Neutrophils # 13.6 H (1.3-7.7) k/uL Lymphocytes # 0.4 L (1.0-4.8) k/uL Sodium 148 H (137-145) mmol/L Chloride 118 H (98-107) mmol/L Carbon Dioxide 21 L (22-30) mmol/L BUN 46 H (9-20) mg/dL Creatinine 1.90 H (0.66-1.25) mg/dL Glucose 100 H (74-99) mg/dL Plasma Lactic Acid Froy 2.1 H* (0.7-2.0) mmol/L 05/05/17 Range/Units 03:21 WBC (3.8-10.6) k/uL RBC (4.30-5.90) m/uL Hgb (13.0-17.5) gm/dL Hct (39.0-53.0) % MCV (80.0-100.0) fL MCHC (31.0-37.0) g/dL RDW (11.5-15.5) % Neutrophils # (1.3-7.7) k/uL Lymphocytes # (1.0-4.8) k/uL Sodium 149 H (137-145) mmol/L Chloride 117 H (98-107) mmol/L Carbon Dioxide (22-30) mmol/L BUN 44 H (9-20) mg/dL Creatinine 1.90 H (0.66-1.25) mg/dL Glucose 100 H (74-99) mg/dL Plasma Lactic Acid Froy (0.7-2.0) mmol/L Microbiology - Last 24 Hours (Table) 05/03/17 17:57 Blood Culture - Preliminary Blood No Growth after 24 hours 05/03/17 03:00 Urine Culture - Preliminary Urine,Catheterized Gram Neg Bacilli Assessment and Plan Plan: Assessment: #1. Nonoliguric acute kidney injury mostly prerenal from diuresis. There may have also been a component of urinary retention. Improving with IV hydration. Creatinine was 4.1 on admission and was down to 1.9. #2. Hyperkalemia secondary to acute kidney injury and potassium supplementation. Improved with medical treatment. #3. UTI. Urine culture positive for gram-negative bacilli. #4. Hypernatremia secondary to lack of oral water intake. Plan: Discontinue normal saline. Start half normal saline to be run at 100 mL an hour. Avoid nephrotoxic agents and hypotensive episodes. Follow-up morning labs and repeat electrolytes in the morning. Continue to hold off on DANIEL inhibitor, diuretics. Continue antibiotics. Replace potassium. 40 mEq today.
[2017-05-05] MEDS: DEXTROSE 5%-0.45% NACL 1,000 ML IV SCH ×2 (11:57→21:40)
[2017-05-05] MEDS: POTASSIUM CHLORIDE 10 MEQ, LIDOCAINE 2% INJ 10 MG in SODIUM CHLORIDE 0.9% 100 ML IVPB SCH ×4 (11:57→17:49)
--- NOTE | 2017-05-05 12:02 | P.GSCN ---
History of Present Illness Consult date: 05/05/17 Reason for Consult: Colonic ileus History of present illness: This a 82-year-old male admitted to Dr. Anderson service. Patient underwent CAT scan on admission. He is found have some thickening of his rectum with a dilated right colon and cecum. Patient also noted to have gallstones. He is currently resting in his bed and feels comfortable. 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, hearing loss, and memory impairment, very dry skin History of Any Multi-Drug Resistant Organisms: None Reported Additional Past Surgical History / Comment(s): hemorrhoidectomy, bilateral rotator cuff Past Anesthesia/Blood Transfusion Reactions: No Reported Reaction Past Psychological History: No Psychological Hx Reported Smoking Status: Unknown if ever smoked Past Alcohol Use History: None Reported Past Drug Use History: None Reported - Past Family History Sister(s) Family Medical History: CVA/TIA Medications and Allergies Home Medications Medication Instructions Recorded Confirmed Type Bisoprolol-Hctz 10-6.25 mg [Ziac 1 tab PO DAILY@0900 01/25/14 05/02/17 History 10-6.25 MG] Clopidogrel [Plavix] 75 mg PO DAILY@0900 01/25/14 05/02/17 History amLODIPine BESYLATE/BENAZEPRIL 1 cap PO DAILY@0900 01/25/14 05/02/17 History [Lotrel 5-20 mg Capsule] Ranitidine HCl [Zantac] 150 mg PO DAILY@0600 04/05/17 05/02/17 History Ammonium Lactate Lotion 1 applic TOPICAL BID 05/02/17 05/02/17 History [Lac-Hydrin 12% Lotion] Clotrimazole/Betamethasone Dip 1 applic TOPICAL BID 05/02/17 05/02/17 History [Lotrisone Cream] Enoxaparin [Lovenox] 40 mg SQ DAILY@0600 05/02/17 05/02/17 History Furosemide [Lasix] 40 mg PO BID@0900,2100 05/02/17 05/02/17 History HYDROcodone/APAP 10-325MG [[place] 1 tab PO Q6H PRN 05/02/17 05/02/17 History 10-325] Lactose-Reduced Food [Ensure Plus] 120 ml PO AC-TID@10,14,21 05/02/17 05/02/17 History Magnesium Hydroxide [Milk of 2,400 mg PO DAILY PRN 05/02/17 05/02/17 History Magnesia] Potassium Chloride ER [K-Dur 20] 20 meq PO BID@0900,2100 05/02/17 05/02/17 History Sennosides-Docusate Sodium 2 tab PO HS@209905/02/17 05/02/17 History [Senokot-S] Triad Wound Paste 1 applic TOPICAL BID 05/02/17 05/02/17 History Allergies Allergy/AdvReac Type Severity Reaction Status Date / Time No Known Allergies Allergy Verified 05/02/17 17:34 Surgical - Exam Vital Signs Temp Pulse Resp BP Pulse Ox 97.3 F L 85 18 120/71 95 05/02/17 17:25 05/02/17 17:25 05/02/17 17:25 05/02/17 17:25 05/02/17 17:25 - General well developed, no distress - Eyes PERRL - ENT normal pinna - Neck no masses - Respiratory normal expansion - Cardiovascular Rhythm: regular - Abdomen Abdomen: soft, non tender Results - Labs 05/04/17 23:29 05/05/17 03:21 Abnormal Lab Results - Last 24 Hours (Table) 05/04/17 05/04/17 05/04/17 Range/Units 23:24 23:29 23:29 WBC 14.7 H (3.8-10.6) k/uL RBC 3.49 L (4.30-5.90) m/uL Hgb 11.0 L (13.0-17.5) gm/dL Hct 36.1 L (39.0-53.0) % MCV 103.2 H (80.0-100.0) fL MCHC 30.4 L (31.0-37.0) g/dL RDW 16.5 H (11.5-15.5) % Neutrophils # 13.6 H (1.3-7.7) k/uL Lymphocytes # 0.4 L (1.0-4.8) k/uL Sodium 148 H (137-145) mmol/L Chloride 118 H (98-107) mmol/L Carbon Dioxide 21 L (22-30) mmol/L BUN 46 H (9-20) mg/dL Creatinine 1.90 H (0.66-1.25) mg/dL Glucose 100 H (74-99) mg/dL Plasma Lactic Acid Froy 2.1 H* (0.7-2.0) mmol/L 05/05/17 Range/Units 03:21 WBC (3.8-10.6) k/uL RBC (4.30-5.90) m/uL Hgb (13.0-17.5) gm/dL Hct (39.0-53.0) % MCV (80.0-100.0) fL MCHC (31.0-37.0) g/dL RDW (11.5-15.5) % Neutrophils # (1.3-7.7) k/uL Lymphocytes # (1.0-4.8) k/uL Sodium 149 H (137-145) mmol/L Chloride 117 H (98-107) mmol/L Carbon Dioxide (22-30) mmol/L BUN 44 H (9-20) mg/dL Creatinine 1.90 H (0.66-1.25) mg/dL Glucose 100 H (74-99) mg/dL Plasma Lactic Acid Froy (0.7-2.0) mmol/L Microbiology - Last 24 Hours (Table) 05/03/17 03:00 Urine Culture - Final Urine,Catheterized Escherichia coli 05/03/17 17:57 Blood Culture - Preliminary Blood No Growth after 24 hours Diabetes panel 05/04/17 05/05/17 Range/Units 23:29 03:21 Sodium 148 H 149 H (137-145) mmol/L Potassium 3.5 3.5 (3.5-5.1) mmol/L Chloride 118 H 117 H (98-107) mmol/L Carbon Dioxide 21 L 22 (22-30) mmol/L BUN 46 H 44 H (9-20) mg/dL Creatinine 1.90 H 1.90 H (0.66-1.25) mg/dL Glucose 100 H 100 H (74-99) mg/dL Calcium 8.5 8.4 (8.4-10.2) mg/dL Calcium panel 05/04/17 05/05/17 Range/Units 23:29 03:21 Calcium 8.5 8.4 (8.4-10.2) mg/dL Pituitary panel 05/04/17 05/05/17 Range/Units 23:29 03:21 Sodium 148 H 149 H (137-145) mmol/L Potassium 3.5 3.5 (3.5-5.1) mmol/L Chloride 118 H 117 H (98-107) mmol/L Carbon Dioxide 21 L 22 (22-30) mmol/L BUN 46 H 44 H (9-20) mg/dL Creatinine 1.90 H 1.90 H (0.66-1.25) mg/dL Glucose 100 H 100 H (74-99) mg/dL Calcium 8.5 8.4 (8.4-10.2) mg/dL Adrenal panel 05/04/17 05/05/17 Range/Units 23:29 03:21 Sodium 148 H 149 H (137-145) mmol/L Potassium 3.5 3.5 (3.5-5.1) mmol/L Chloride 118 H 117 H (98-107) mmol/L Carbon Dioxide 21 L 22 (22-30) mmol/L BUN 46 H 44 H (9-20) mg/dL Creatinine 1.90 H 1.90 H (0.66-1.25) mg/dL Glucose 100 H 100 H (74-99) mg/dL Calcium 8.5 8.4 (8.4-10.2) mg/dL Assessment and Plan Plan: Cholelithiasis Cecal dilation Possible rectal wall lesion. Patient will undergo colonoscopy once he is medically stable.
[2017-05-05] MEDS: BACITRACIN/POLYMYX 500-10,000 UNIT/GM OPHTH OINT 3.5 GM TUBE BOTH EYES SCH ×2 (17:52→21:39)
[2017-05-05] MEDS: LORazepam 2 MG/ML SYRINGE IV PRN (19:06)
[2017-05-05] MEDS: SENNOSIDES-DOCUSATE SODIUM 1 EACH TAB PO SCH (21:38)
--- NOTE | 2017-05-05 22:15 | PN ---
DATE OF SERVICE: 05/04/17 I am covering for Dr. Anderson. This 82-year-old gentleman admitted with renal failure, also had hyperkalemia, the patient also had abdominal distention, ordered an acute abdominal series which showed mild CHF, as well as dilated colon measuring up to 6.4 cm. Additional prominent air filled bowel loops also noted. The patient is being closely monitored. Sensorium slightly improved. The patient is on IV fluids. Past medical history reviewed. REVIEW OF SYSTEMS: Could not be taken. The current medications are reviewed and include: Current medications include: 1. [place] 10 mg q6h prn 2. Norvasc 5 mg. 3. Lotrisone. 4. Plavix. 5. Valium. 6. Pepcid. 7. Lachydrin. 8. Ativan. 9. Protonix. 10. Senokot. PHYSICAL EXAMINATION: On exam, the patient is conscious but confused. Pulse 100. Blood pressure 109/57, respiratory rate 18. Temperature 97.7, pulse ox 97 % on 2 L. HEENT: Conjunctivae normal. NECK: no JVD. CARDIOVASCULAR: S1, S2 muffled. RESPIRATORY: Breath sounds diminished at the bases. Scattered rhonchi and crackles. Abdomen is soft. Obese. Mild diffuse distention present. LEGS : No edema. No swelling. Nervous system: diffusely weak. LABS: Urine culture showed gram negative bacilli. WBC 13.5, sodium 147, creatinine 2.29. ASSESSMENT: 1. Acute renal failure, possibly prerenal multifactorial. 2. Acute urinary tract infection with sepsis. 3. Hyperkalemia secondary to renal failure. 4. Nausea and vomiting, diarrhea. Rule out ileus, rule out intestinal obstruction. 5. Urinary tract infection with sepsis present on admission. 6. Increased WBC. RECOMMENDATIONS AND DISCUSSION: Recommend to continue the current medications. Continue with monitoring and symptomatic treatment. Otherwise, at this time, I recommend to continue with the current medications. Continue antibiotics. Surgical evaluation. I would also recommend CT scan of the abdomen and pelvis and chest also. Cut down the amount of fluid and monitor closely. Guarded prognosis because of multiple complex medical issues. Further recommendations to follow. MTDD
--- NOTE | 2017-05-05 22:26 | P.CONS ---
History of Present Illness - Reason for Consult Consult date: 05/05/17 - Chief Complaint Sepsis - History of Present Illness 82-year-old male resident of [facility] was found evidence of multiple abnormal labs included acute renal failure and hyperkalemia. The patient was transferred from the [facility] for further intervention. Infectious diseases consultation was requested when the patient developed a high-grade fever reportedly over 104. the consult was initiated as the patient became febrile, hypotensive and tachycardic. The patient is a poor historian. The patient today is a bit more comfortable than reported last evening. He relates that he has minimal hunger. His mouth is dry. As related lactic acid was drawn which was elevated and had evidence of leukocytosis, the patient was given fluids and antibiotic therapy with Zosyn given the concerns to urinary system as well as potential abdominal source since he was having some diarrhea. As the patient is slightly more comfortable. Has been seen by surgery and is being monitored for a potential colonoscopy in the future. Concerns to colonic abscess. 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, hearing loss, and memory impairment, very dry skin History of Any Multi-Drug Resistant Organisms: None Reported Additional Past Surgical History / Comment(s): hemorrhoidectomy, bilateral rotator cuff Past Anesthesia/Blood Transfusion Reactions: No Reported Reaction Past Psychological History: No Psychological Hx Reported Smoking Status: Unknown if ever smoked Past Alcohol Use History: None Reported Past Drug Use History: None Reported - Past Family History Sister(s) Family Medical History: CVA/TIA Medications and Allergies Home Medications and Allergies Comment(s): Current Medications Hydrocodone Bitart/Acetaminophen ([place] 10) 1 each PO Q6H PRN PRN Reason: Moderate Pain Last Admin: 05/04/17 12:50 Dose: 1 each Amlodipine Besylate (Norvasc) 5 mg PO DAILY@0900 [facility] Last Admin: 05/05/17 08:33 Dose: 5 mg Bacitracin/Polymyxin B Sulfate (Polysporin) 1 applic BOTH EYES QID [facility] Last Admin: 05/05/17 21:39 Dose: 1 applic Betamethasone/Clotrimazole (Lotrisone) 1 applic TOPICAL BID [facility] Last Admin: 05/05/17 21:39 Dose: 1 applic Clopidogrel Bisulfate (Plavix) 75 mg PO DAILY@0900 [facility] Last Admin: 05/05/17 08:33 Dose: 75 mg Diazepam (Valium) 2.5 mg PO Q8HR PRN PRN Reason: Mild Spasms Last Admin: 05/03/17 20:28 Dose: 2.5 mg Enoxaparin Sodium (Lovenox) 30 mg SQ DAILY@0600 [facility] Last Admin: 05/05/17 06:22 Dose: 30 mg Famotidine (Pepcid) 20 mg PO DAILY@0600 [facility] Last Admin: 05/05/17 06:20 Dose: Not Given Piperacillin/Tazobactam/ (Dextrose 3.375 gm/ IV Solution) 50 mls @ 12.5 mls/hr IVPB Q8HR [facility] Last Admin: 05/05/17 15:30 Dose: 12.5 mls/hr Dextrose/Sodium Chloride (Dextrose 5%-1/2ns Iv Soln) 1,000 mls @ 100 mls/hr IV .Q10H [facility] Last Admin: 05/05/17 21:40 Dose: 100 mls/hr Lactic Acid (Lac-Hydrin 12%) 1 applic TOPICAL BID [facility] Last Admin: 05/05/17 21:39 Dose: 1 applic Lorazepam (Ativan) 0.5 mg IV Q6HR PRN PRN Reason: Anxiety Last Admin: 05/05/17 19:06 Dose: 0.5 mg Magnesium Hydroxide (Milk Of Magnesia) 2,400 mg PO DAILY PRN PRN Reason: Constipation Ondansetron HCl (Zofran) 4 mg IVP Q6HR PRN PRN Reason: Nausea And Vomiting Pantoprazole Sodium (Protonix) 40 mg IVP DAILY [facility] Last Admin: 05/05/17 08:33 Dose: 40 mg Senna/Docusate Sodium (Senokot-S) 2 each PO HS@2100 [facility] Last Admin: 05/05/17 21:38 Dose: 2 each Tetrahydrozoline HCl (Visine Eye Drops) 1 drops BOTH EYES TID PRN PRN Reason: Eye Irritation Home Medications Medication Instructions Recorded Confirmed Type Bisoprolol-Hctz 10-6.25 mg [Ziac 1 tab PO DAILY@0900 01/25/14 05/02/17 History 10-6.25 MG] Clopidogrel [Plavix] 75 mg PO DAILY@0900 01/25/14 05/02/17 History amLODIPine BESYLATE/BENAZEPRIL 1 cap PO DAILY@0900 01/25/14 05/02/17 History [Lotrel 5-20 mg Capsule] Ranitidine HCl [Zantac] 150 mg PO DAILY@0600 04/05/17 05/02/17 History Ammonium Lactate Lotion 1 applic TOPICAL BID 05/02/17 05/02/17 History [Lac-Hydrin 12% Lotion] Clotrimazole/Betamethasone Dip 1 applic TOPICAL BID 05/02/17 05/02/17 History [Lotrisone Cream] Enoxaparin [Lovenox] 40 mg SQ DAILY@0600 05/02/17 05/02/17 History Furosemide [Lasix] 40 mg PO BID@0900,2100 05/02/17 05/02/17 History HYDROcodone/APAP 10-325MG [[place] 1 tab PO Q6H PRN 05/02/17 05/02/17 History 10-325] Lactose-Reduced Food [Ensure Plus] 120 ml PO AC-TID@,,21 05/02/17 05/02/17 History Magnesium Hydroxide [Milk of 2,400 mg PO DAILY PRN 05/02/17 05/02/17 History Magnesia] Potassium Chloride ER [K-Dur 20] 20 meq PO BID@0900,2100 05/02/17 05/02/17 History Sennosides-Docusate Sodium 2 tab PO HS@2100 05/02/17 05/02/17 History [Senokot-S] Triad Wound Paste 1 applic TOPICAL BID 05/02/17 05/02/17 History Allergies Allergy/AdvReac Type Severity Reaction Status Date / Time No Known Allergies Allergy Verified 05/02/17 17:34 Physical Exam Vitals: Vital Signs Temp Pulse Resp BP Pulse Ox 05/05/17 16:00 98.5 F 112 H 16 115/58 95 05/05/17 12:00 98.4 F 124 H 16 102/60 94 L 05/05/17 08:00 100.4 F H 110 H 18 127/55 98 05/05/17 04:00 98.9 F 108 H 20 96/68 99 05/05/17 00:00 100.6 F H 126 H 18 125/58 97 Intake and Output 05/05/17 05/05/17 05/05/17 06:59 14:59 22:59 Intake Total 650 0 0 Output Total 250 600 Balance 400 0 -600 Intake: Intake, IV Titration 650 Amount Piperacillin-Tazobactam 3 50 .375 gm In Dextrose/Water 1 50ml.bag @ 12.5 mls/hr IVPB Q8HR [facility] Rx#: [id number] Sodium Chloride 0.9% 1, 600 000 ml @ 100 mls/hr IV . Q10H [facility] Rx#:[id number] Oral 0 0 0 Output: Urine 250 600 Other: Voiding Method Indwelling Catheter Indwelling Catheter Indwelling Catheter Weight 63.2 kg 82-year-old male poor historian HEENT: Anicteric conjunctiva are pink and mildly crusty nasal mucosa grossly intact without significant lesions, there is no thrush but the oral cavity is very dry Neck: The neck is supple without significant lymphadenopathy or thyromegaly. Lungs: There is symmetrical air entry. Scattered expiratory wheezes are noted. Heart: Irregular with soft S4 no distinct murmur click or rub Abdomen: Positive bowel sounds soft and nontender without palpable masses or organomegaly. There was no guarding or rebound. Extremities: The extremities have some minimal trace edema but no significant lesions are seen in the upper extremities. The lower extremities have evidence of the extensive skin lesion the bilateral lower extremities. There is a healing left hip incision which is without erythema crepitance or fluctuance. Neuro: Arousable, speech content is poor and inconsistent can poorly understandable he however does move arms and legs spontaneously Results CBC & Chem 7: 05/04/17 23:29 05/05/17 03:21 Labs: Abnormal Lab Results - Last 24 Hours (Table) 05/04/17 05/04/17 05/04/17 Range/Units 23:24 23:29 23:29 WBC 14.7 H (3.8-10.6) k/uL RBC 3.49 L (4.30-5.90) m/uL Hgb 11.0 L (13.0-17.5) gm/dL Hct 36.1 L (39.0-53.0) % MCV 103.2 H (80.0-100.0) fL MCHC 30.4 L (31.0-37.0) g/dL RDW 16.5 H (11.5-15.5) % Neutrophils # 13.6 H (1.3-7.7) k/uL Lymphocytes # 0.4 L (1.0-4.8) k/uL Sodium 148 H (137-145) mmol/L Chloride 118 H (98-107) mmol/L Carbon Dioxide 21 L (22-30) mmol/L BUN 46 H (9-20) mg/dL Creatinine 1.90 H (0.66-1.25) mg/dL Glucose 100 H (74-99) mg/dL Plasma Lactic Acid Froy 2.1 H* (0.7-2.0) mmol/L 05/05/17 Range/Units 03:21 WBC (3.8-10.6) k/uL RBC (4.30-5.90) m/uL Hgb (13.0-17.5) gm/dL Hct (39.0-53.0) % MCV (80.0-100.0) fL MCHC (31.0-37.0) g/dL RDW (11.5-15.5) % Neutrophils # (1.3-7.7) k/uL Lymphocytes # (1.0-4.8) k/uL Sodium 149 H (137-145) mmol/L Chloride 117 H (98-107) mmol/L Carbon Dioxide (22-30) mmol/L BUN 44 H (9-20) mg/dL Creatinine 1.90 H (0.66-1.25) mg/dL Glucose 100 H (74-99) mg/dL Plasma Lactic Acid Froy (0.7-2.0) mmol/L Microbiology - Last 24 Hours (Table) 05/03/17 17:57 Blood Culture - Preliminary Blood No Growth after 48 hours 05/03/17 03:00 Urine Culture - Final Urine,Catheterized Escherichia coli Laboratory Results WBC 14.7 k/uL (3.8-10.6) H 05/04/17 23:29 RBC 3.49 m/uL (4.30-5.90) L 05/04/17 23:29 Hgb 11.0 gm/dL (13.0-17.5) L 05/04/17 23:29 Hct 36.1 % (39.0-53.0) L 05/04/17 23: MCV 103.2 fL (80.0-100.0) H 05/04/17 23:29 MCH 31.4 pg (25.0-35.0) 05/04/17 23: MCHC 30.4 g/dL (31.0-37.0) L 05/04/17 23: RDW 16.5 % (11.5-15.5) H 05/04/17 23:29 Plt Count 268 k/uL (150-450) 05/04/17 23: Neutrophils % 93 % 05/04/17 23: Lymphocytes % 3 % 05/04/17 23: Monocytes % 3 % 05/04/17 23: Eosinophils % 0 % 05/04/17 23: Basophils % 0 % 05/04/17 23: Neutrophils # 13.6 k/uL (1.3-7.7) H 05/04/17 23: Lymphocytes # 0.4 k/uL (1.0-4.8) L 05/04/17 23: Monocytes # 0.5 k/uL (0-1.0) 05/04/17 23: Eosinophils # 0.1 k/uL (0-0.7) 05/04/17 23: Basophils # 0.0 k/uL (0-0.2) 05/04/17 23:29 Hypochromasia Moderate 05/04/17 23:29 Anisocytosis Slight 05/04/17 23:29 Macrocytosis Moderate 05/04/17 23:29 Sodium 149 mmol/L (137-145) H 05/05/17 03:21 Potassium 3.5 mmol/L (3.5-5.1) 05/05/17 03:21 Chloride 117 mmol/L (98-107) H 05/05/17 03:21 Carbon Dioxide 22 mmol/L (22-30) 05/05/17 03:21 Anion Gap 10 mmol/L 05/05/17 03:21 BUN 44 mg/dL (9-20) H 05/05/17 03:21 Creatinine 1.90 mg/dL (0.66-1.25) H 05/05/17 03:21 Est GFR (MDRD) Af Amer 41 (>60 ml/min/1.73 sqM) 05/05/17 03:21 Est GFR (MDRD) Non-Af 34 (>60 ml/min/1.73 sqM) 05/05/17 03:21 Glucose 100 mg/dL (74-99) H 05/05/17 03:21 POC Glucose (mg/dL) 98 mg/dL (75-99) 05/04/17 22:36 POC Glu [employer] ID Darryl Fink 05/04/17 22:36 Lactic Ac Sepsis Rflx Y 05/05/17 00:06 Plasma Lactic Acid Froy 1.3 mmol/L (0.7-2.0) 05/05/17 03:21 Calcium 8.4 mg/dL (8.4-10.2) 05/05/17 03:21 Magnesium 2.0 mg/dL (1.6-2.3) 05/02/17 17:46 Total Bilirubin 1.0 mg/dL (0.2-1.3) 05/03/17 06:11 AST 36 U/L (17-59) 05/03/17 06:11 ALT 33 U/L (21-72) 05/03/17 06:11 Alkaline Phosphatase 147 U/L (38-126) H 05/03/17 06:11 Total Creatine Kinase 125 U/L (55-170) 05/02/17 17:46 CK-MB (CK-2) 3.7 ng/mL (0.0-2.4) H* 05/02/17 17:46 CK-MB (CK-2) Rel Index 3.0 05/02/17 17:46 Troponin I 0.029 ng/mL (0.000-0.034) 05/02/17 17:46 Total Protein 5.4 g/dL (6.3-8.2) L 05/03/17 06:11 Albumin 2.8 g/dL (3.5-5.0) L 05/03/17 06:11 Urine Color Yellow 05/02/17 19:18 Urine Appearance Cloudy (Clear) 05/02/17 19:18 Urine pH 6.0 (5.0-8.0) 05/02/17 19:18 Ur Specific [place] 1.011 (1.001-1.035) 05/02/17 19:18 Urine Protein 1+ (Negative) H 05/02/17 19:18 Urine Glucose (UA) Negative (Negative) 05/02/17 19:18 Urine Ketones Negative (Negative) 05/02/17 19:18 Urine Blood Moderate (Negative) H 05/02/17 19:18 Urine Nitrite Negative (Negative) 05/02/17 19:18 Urine Bilirubin Negative (Negative) 05/02/17 19:18 Urine Urobilinogen 3.0 mg/dL (<2.0) 05/02/17 19:18 Ur Leukocyte Esterase Large (Negative) H 05/02/17 19:18 Urine RBC 71 /hpf (0-5) H 05/02/17 19:18 Urine WBC 155 /hpf (0-5) H 05/02/17 19:18 Urine WBC Clumps Few /hpf (None) H 05/02/17 19:18 Urine Bacteria Few /hpf (None) H 05/02/17 19:18 Urine Mucus Rare /hpf (None) H 05/02/17 19:18 C. difficile (EIA) Intrp Negative (Negative) 05/03/17 15:54 Microbiology 05/03/17 17:57 Blood Blood Culture - Preliminary No Growth after 48 hours 05/03/17 03:00 Urine,Catheterized Urine Culture - Final Escherichia coli Assessment and Plan (1) Gram-negative sepsis with organ dysfunction Narrative/Plan: 82-year-old male transferred from extended care facility for alteration of his status. We'll request performed there was evidence of leukocytosis, acute renal failure, hyperkalemia. With this he was transferred to Hospital and is now received intervention and has been seen by nephrology. Because of his illness computed tomography scan of the abdomen and pelvis was performed showing evidence of the significant cecal dilatation and concerns to infection and abscess at that site. The patient has been seen by surgery and will plan colonoscopy when he is medically cleared. At the time of the consult fluid bolus was given since his computed tomography scan did not show evidence of heart failure. Antipyretics were given. The patient defervesced and his significant tachycardia and hypotension resolved. The patient has remained on selective care. His CODE STATUS is full, and apparently this has been addressed with the family and they do not yet understand the current ramifications of his illness. Ongoing discussion shall be held for more appropriate CODE STATUS. He does have a significant leukocytosis which is slightly improved today. There is evidence of urine culture with E. coli. His fever has improved a bit. Antibiotic therapy with Zosyn was initiated with concerns to the abdominal sepsis. We will also give coverage for his urinary tract infection based on prior cultures. He does have some crustiness to his eyes and Polysporin is given. His legs are wrapped and this will continue with the local care. His prognosis is poor. Status: Acute (2) Acute renal failure Status: Acute (3) Hyperkalemia Status: Acute (4) UTI (urinary tract infection) Status: Acute
[2017-05-06] MEDS: PIPERACILLIN-TAZOBACTAM 3.375 GM in DEXTROSE/WATER 1 50ML.BAG IVPB SCH ×4 (00:40→23:09)
[2017-05-06] MEDS: DEXTROSE 5%-0.45% NACL 1,000 ML IV SCH (06:34)
[2017-05-06] MEDS: ENOXAPARIN 30 MG/0.3 ML SYRINGE SQ SCH (06:34)
[2017-05-06] MEDS: FAMOTIDINE 20 MG TAB PO SCH (06:34)
[2017-05-06 06:49] LABS: Calcium 8.3 mg/dL (8.4-10.2); Magnesium 1.6 mg/dL (1.6-2.3); Potassium 3.7 mmol/L (3.5-5.1)
--- NOTE | 2017-05-06 09:37 | P.PN ---
Subjective Patient is seen in follow-up for acute kidney injury. His potassium was 6.4 on admission. Renal function is improving with creatinine down to 1.64. Hyperkalemia has resolved. Baseline creatinine is 1. Patient's currently resting in bed. He is not a very reliable historian. He is maintained on IV fluids. He has a Granados catheter in place. He is nonoliguric. Vital signs are stable. General: The patient appeared well nourished and normally developed. HEENT: Head exam is unremarkable. Neck is without jugular venous distension. LUNGS: Lungs are clear to auscultation and percussion. Breath sounds decreased. HEART: Rate and Rhythm are regular. First and second heart sounds normal. No murmurs, rubs or gallops. ABDOMEN: Abdominal exam reveals normal bowel sounds. Non-tender and non- distended. No evidence of peritonitis. EXTREMITITES: No clubbing, cyanosis, or edema. Objective - Vital Signs Vital signs: Vital Signs Temp 98.7 F 05/06/17 04:00 Pulse 117 H 05/06/17 04:00 Resp 20 05/06/17 04:00 BP 144/65 05/06/17 04:00 Pulse Ox 97 05/06/17 04:00 Intake & Output 05/05/17 05/06/17 05/06/17 18:59 06:59 18:59 Intake Total 0 800 180 Output Total 600 750 Balance -600 50 180 Weight 65 kg Intake: IV 800 Dextrose 5%-0.45% NaCl 1, 800 000 ml @ 100 mls/hr IV . Q10H [facility] Rx#:[id number] Oral 0 180 Output: Urine 600 750 Other: Voiding Method Indwelling Catheter Indwelling Catheter - Labs CBC & Chem 7: 05/04/17 23:29 05/06/17 05:54 Labs: Abnormal Lab Results - Last 24 Hours (Table) 05/06/17 Range/Units 05:54 Sodium 151 H (137-145) mmol/L Chloride 121 H* (98-107) mmol/L BUN 36 H (9-20) mg/dL Creatinine 1.64 H (0.66-1.25) mg/dL Glucose 103 H (74-99) mg/dL Calcium 8.3 L (8.4-10.2) mg/dL Microbiology - Last 24 Hours (Table) 05/04/17 23:29 Blood Culture - Preliminary Blood No Growth after 24 hours 05/03/17 17:57 Blood Culture - Preliminary Blood No Growth after 48 hours 05/03/17 03:00 Urine Culture - Final Urine,Catheterized Escherichia coli Assessment and Plan Plan: Assessment: #1. Nonoliguric acute kidney injury mostly prerenal from diuresis. There may have also been a component of urinary retention. Improving with IV hydration. Creatinine was 4.1 on admission and was down to 1.64. #2. Hyperkalemia secondary to acute kidney injury and potassium supplementation. Improved with medical treatment. #3. UTI. Urine culture positive for gram-negative bacilli - E. coli. #4. Hypernatremia secondary to lack of oral water intake. #5. Cecal dilation with concern of abscess. Plan: I will change IV fluids to D5W to be run at 100 mL an hour. Avoid nephrotoxic agents and hypotensive episodes. Continue to hold off on DANIEL inhibitor, diuretics. Continue antibiotics per infectious disease recommendations.
[2017-05-06] MEDS ORDERED: DEXTROSE 5% IN WATER 1,000 ML IV ONE (09:38)
[2017-05-06] MEDS: CLOPIDOGREL 75 MG TAB PO SCH (09:49)
[2017-05-06] MEDS: amLODIPine 5 MG TAB PO SCH (09:49)
[2017-05-06] MEDS: PANTOPRAZOLE 40 MG/10 ML VIAL IVP SCH (09:49)
[2017-05-06] MEDS: AMMONIUM LACTATE 12% LOTION 225 GM BTL TOPICAL SCH ×2 (09:59→22:30)
[2017-05-06] MEDS: BACITRACIN/POLYMYX 500-10,000 UNIT/GM OPHTH OINT 3.5 GM TUBE BOTH EYES SCH ×4 (09:59→22:31)
[2017-05-06] MEDS: CLOTRIMAZOLE/BETAMETH 1-0.05% CREAM 45 GM TUBE TOPICAL SCH ×2 (09:59→22:31)
--- NOTE | 2017-05-06 11:14 | P.CRDCN ---
History of Present Illness Consult date: 05/06/17 Requesting physician: Marianna Justin Reason for Consult (text): Tachycardia Chief complaint: Acute renal failure History of present illness: This is an 82-year-old gentleman with history of prior CVA, hypertension, GERD, degenerative joint disease, who currently resides in an extended care facility. Patient apparently had several lab tests drawn and was found to be in acute renal failure for this reason he was recommended to come to the hospital for admission. According to the patient, he had been feeling his usual self, it is hard to get answers to every question. Patient was afebrile here on admission for the first couple of days, then was noted to develop a fever of 100.6, he became tachycardic and was hypotensive. This morning his heart rate is noted to be in the 100s, sinus tachycardia, mucous membranes appear quite dry. Blood pressure this morning 142/90, cardiology consultation was requested because of the tachycardia. White blood cell count on admission 17.3, 14.7 this morning. Hemoglobin 11.0. Potassium on admission 6.4, 3.7 this morning. BUN on admission 76, creatinine 4.1, BUN this morning 36 , creatinine 1.6. Troponin 0.039. Positive UTI. He is currently receiving antibiotics for possible UTI, patient states he has been having loose stools prior to coming here as well. He denies any chest discomfort, breathing has been stable overall. 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, hearing loss, and memory impairment, very dry skin History of Any Multi-Drug Resistant Organisms: None Reported Additional Past Surgical History / Comment(s): hemorrhoidectomy, bilateral rotator cuff Past Anesthesia/Blood Transfusion Reactions: No Reported Reaction Past Psychological History: No Psychological Hx Reported Smoking Status: Unknown if ever smoked Past Alcohol Use History: None Reported Past Drug Use History: None Reported - Past Family History Sister(s) Family Medical History: CVA/TIA Medications and Allergies Home Medications Medication Instructions Recorded Confirmed Type Bisoprolol-Hctz 10-6.25 mg [Ziac 1 tab PO DAILY@0900 01/25/14 05/02/17 History 10-6.25 MG] Clopidogrel [Plavix] 75 mg PO DAILY@0900 01/25/14 05/02/17 History amLODIPine BESYLATE/BENAZEPRIL 1 cap PO DAILY@0900 01/25/14 05/02/17 History [Lotrel 5-20 mg Capsule] Ranitidine HCl [Zantac] 150 mg PO DAILY@0600 04/05/17 05/02/17 History Ammonium Lactate Lotion 1 applic TOPICAL BID 05/02/17 05/02/17 History [Lac-Hydrin 12% Lotion] Clotrimazole/Betamethasone Dip 1 applic TOPICAL BID 05/02/17 05/02/17 History [Lotrisone Cream] Enoxaparin [Lovenox] 40 mg SQ DAILY@0605/02/17 05/02/17 History Furosemide [Lasix] 40 mg PO BID@0900,209905/02/17 05/02/17 History HYDROcodone/APAP 10-325MG [[place] 1 tab PO Q6H PRN 05/02/17 05/02/17 History 10-325] Lactose-Reduced Food [Ensure Plus] 120 ml PO AC-TID@,,05/02/17 05/02/17 History Magnesium Hydroxide [Milk of 2,400 mg PO DAILY PRN 05/02/17 05/02/17 History Magnesia] Potassium Chloride ER [K-Dur 20] 20 meq PO BID@0900,209905/02/17 05/02/17 History Sennosides-Docusate Sodium 2 tab PO HS@209905/02/17 05/02/17 History [Senokot-S] Triad Wound Paste 1 applic TOPICAL BID 05/02/17 05/02/17 History Allergies Allergy/AdvReac Type Severity Reaction Status Date / Time No Known Allergies Allergy Verified 05/02/17 17:34 Physical Exam Vitals: Vital Signs Temp Pulse Resp BP Pulse Ox 05/06/17 04:00 98.7 F 117 H 20 144/65 97 05/06/17 00:00 99.4 F 147 H 16 122/72 98 05/05/17 20:00 98.3 F 120 H 16 131/77 96 05/05/17 16:00 98.5 F 112 H 16 115/58 95 05/05/17 12:00 98.4 F 124 H 16 102/60 94 L Intake and Output 08/13/17 08/14/17 08/14/17 22:59 06:59 14:59 Intake Total 0 800 180 Output Total 700 650 Balance -700 150 180 Intake: IV 800 Dextrose 5%-0.45% NaCl 1, 800 000 ml @ 100 mls/hr IV . Q10H [facility] Rx#:[id number] Oral 0 180 Output: Urine 700 650 Other: Voiding Method Indwelling Catheter Indwelling Catheter Weight 65 kg PHYSICAL EXAMINATION: HEENT: Head is atraumatic, normocephalic. Pupils equal, round. Neck is supple. There is no elevated jugular venous pressure. HEART EXAMINATION: Heart S1 and S2 tachycardic systolic murmur is heard CHEST EXAMINATION: Lungs reveal fine crackles to bilateral bases. ABDOMEN: Soft, nontender. Bowel sounds are heard. No organomegaly noted. EXTREMITIES: 1+ peripheral pulses with no evidence of peripheral edema and no calf tenderness noted. NEUROLOGIC patient is awake, alert and oriented -1. . Results 05/04/17 23:29 05/06/17 05:54 Comprehensive Metabolic Panel 05/06/17 Range/Units 05:54 Sodium 151 H (137-145) mmol/L Potassium 3.7 (3.5-5.1) mmol/L Chloride 121 H* (98-107) mmol/L Carbon Dioxide 23 (22-30) mmol/L BUN 36 H (9-20) mg/dL Creatinine 1.64 H (0.66-1.25) mg/dL Glucose 103 H (74-99) mg/dL Calcium 8.3 L (8.4-10.2) mg/dL Current Medications Generic Name Dose Route Start Last Admin Trade Name Freq PRN Reason Stop Dose Admin Hydrocodone Bitart/Acetaminophen 1 each 05/02/17 21:00 05/04/17 12:50 [place] 10 PO 1 each Q6H PRN Administration Moderate Pain Amlodipine Besylate 5 mg 05/03/17 09:00 05/06/17 09:49 Norvasc PO 5 mg DAILY@0900 [facility] Administration Bacitracin/Polymyxin B Sulfate 1 applic 05/05/17 18:00 05/06/17 09:59 Polysporin BOTH EYES 1 applic QID [facility] Administration Betamethasone/Clotrimazole 1 applic 05/02/17 21:00 05/06/17 09:59 Lotrisone TOPICAL 1 applic BID [facility] Administration Clopidogrel Bisulfate 75 mg 05/03/17 09:00 05/06/17 09:49 Plavix PO 75 mg DAILY@0900 [facility] Administration Diazepam 2.5 mg 05/02/17 21:00 05/03/17 20:28 Valium PO 2.5 mg Q8HR PRN Administration Mild Spasms Enoxaparin Sodium 30 mg 05/04/17 06:00 05/06/17 06:34 Lovenox SQ 30 mg DAILY@0600 [facility] Administration Famotidine 20 mg 05/03/17 06:00 05/06/17 06:34 Pepcid PO 20 mg DAILY@0600 [facility] Administration Piperacillin/Tazobactam/ 50 mls @ 12.5 mls/hr 05/05/17 00:00 05/06/17 09:53 Dextrose 3.375 gm/ IV Solution IVPB 12.5 mls/hr Q8HR [facility] Administration Magnesium Sulfate/Dextrose 1 100 mls @ 100 mls/hr 05/06/17 10:00 gm/ IV Solution IVPB 05/06/17 11:59 Q1H [facility] Dextrose/Water 1,000 mls @ 100 mls/hr 05/06/17 09:38 05/06/17 10:01 Dextrose 5%-Water Iv Soln IV 05/06/17 19:37 100 mls/hr .Q10H [facility] Administration Lactic Acid 1 applic 05/02/17 21:00 05/06/17 09:59 Lac-Hydrin 12% TOPICAL 1 applic BID [facility] Administration Lorazepam 0.5 mg 05/03/17 17:43 05/05/17 19:06 Ativan IV 0.5 mg Q6HR PRN Administration Anxiety Magnesium Hydroxide 2,400 mg 05/02/17 21:00 Milk Of Magnesia PO DAILY PRN Constipation Ondansetron HCl 4 mg 05/04/17 20:49 Zofran IVP Q6HR PRN Nausea And Vomiting Pantoprazole Sodium 40 mg 05/03/17 18:00 05/06/17 09:49 Protonix IVP 40 mg DAILY [facility] Administration Senna/Docusate Sodium 2 each 05/02/17 21:00 05/05/17 21:38 Senokot-S PO 2 each HS@2100 [facility] Administration Tetrahydrozoline HCl 1 drops 05/04/17 18:16 Visine Eye Drops BOTH EYES TID PRN Eye Irritation Intake and Output 05/05/17 05/06/17 05/06/17 22:59 06:59 14:59 Intake Total 0 800 180 Output Total 700 650 Balance -700 150 180 Intake: IV 800 Dextrose 5%-0.45% NaCl 1, 800 000 ml @ 100 mls/hr IV . Q10H [facility] Rx#:[id number] Oral 0 180 Output: Urine 700 650 Other: Voiding Method Indwelling Catheter Indwelling Catheter Weight 65 kg 05/04/17 23:29 05/06/17 05:54 EKG Interpretations (text) EKG shows a sinus tachycardia Assessment and Plan Plan: Assessment and plan #1 acute renal failure #2 gram-negative sepsis with associated fever #3 sinus tachycardia likely secondary to sepsis and fever as well as dehydration. #4 hyperkalemia #5 history of CVA #6 hypertension #7 diarrhea rule out C. diff Plan We will order an echocardiogram with Doppler study as well as free T4 and TSH. Patient is in sinus tachycardia which is likely secondary to sepsis as well as dehydration. Continue with IV fluids at 100 mL an hour. Further recommendations to follow. DNP note has been reviewed, I agree with a documented findings and plan of care. Patient was seen and examined.
--- NOTE | 2017-05-06 14:31 | PN ---
DATE OF SERVICE: 05/05/2017 I am covering for Dr. Anderson. This 82-year-old gentleman, who was admitted with acute renal failure also had abdominal distention and cecal dilation also on the CT scan. Surgery, Dr. Piña, is following the patient closely. Patient also had a CT scan of the chest, abdomen and pelvis also. is following the patient for renal failure. The patient continues to be confused. PAST MEDICAL HISTORY: Reviewed. Review of systems could not be taken. The patient is confused. Current medications are: 1. [place] 10 mg q.6 p.r.n 2. Norvasc. 3. Plavix. 4. Valium. 5. Pepcid. 6. Lac-Hydrin. 7. Milk of magnesium. 8. Protonix. 9. Senokot. Doses reviewed. PHYSICAL EXAM: The patient is alert, oriented x1. Pulse is 112, blood pressure 115/50, respirations 16, temperature 98.2, pulse ox 95% on room air. HEENT: Conjunctivae normal. Oral mucosa moist. NECK: No jugular venous distention. No carotid bruit. No lymph node enlargement. CARDIOVASCULAR: S1, S2. RESPIRATORY: Breath sounds diminished at the bases. A few scattered rhonchi and crackles. ABDOMEN: Soft, obese. Mild diffuse distention. LEGS: No edema, no swelling. NERVOUS SYSTEM: No focal deficits. LABS: WBC 14, hemoglobin 11, sodium 148. Plasma lactic acid 2.1. ASSESSMENT: 1. Acute renal failure possible prerenal and multifactorial. 2. Hyperkalemia secondary to renal failure. 3. Nausea, vomiting, diarrhea, possibly acute gastroenteritis. 4. Possible atrial fibrillation. 5. Recent ileus and cecal dilatation. 6. Urinary tract infection with sepsis present on admission. 7. Increased WBC. RECOMMENDATIONS AND DISCUSSION: I recommend to continue the current medications, continue symptomatic treatment. Otherwise, I would recommend continue with current medications, repeat labs. Continue the cautious IV fluid administration. Closely follow with multiple consultants. Discussed with family at length. Infectious Disease evaluation has been requested. Cardiology has also been consulted. Prognosis is guarded because of multiple complex medical issues. Further recommendations to follow. MTDD
[2017-05-06] MEDS: MAGNESIUM SULFATE-D5W PMX 1 GM in DEXTROSE/WATER 1 100ML.BAG IVPB SCH ×2 (14:40→15:59)
--- NOTE | 2017-05-06 17:59 | P.PN ---
Progress Note - Text the patient resting comfortably his bed. He has no real complaints. On exam his vital signs are stable. His abdomen soft. Possible rectal wall lesion. Cholelithiasis Patient will undergo colonoscopy once he is medically stable.
[2017-05-06] MEDS ORDERED: LEVOFLOXACIN 500MG-D5W PMX 500 MG in DEXTROSE/WATER 1 100ML.BAG IVPB SCH (18:00)
--- NOTE | 2017-05-06 20:39 | P.PN ---
Subjective Principal diagnosis: sepsis 82-year-old male resident of [facility] was found evidence of multiple abnormal labs included acute renal failure and hyperkalemia. The patient was transferred from the [facility] care [facility] for further intervention. Infectious diseases consultation was requested when the patient developed a high-grade fever reportedly over 104. the consult was initiated as the patient became febrile, hypotensive and tachycardic. The patient is a poor historian. The patient today is a bit more comfortable than reported last evening. He relates that he has minimal hunger. His mouth is dry. As related lactic acid was drawn which was elevated and had evidence of leukocytosis, the patient was given fluids and antibiotic therapy with Zosyn given the concerns to urinary system as well as potential abdominal source since he was having some diarrhea. As the patient is slightly more comfortable. Has been seen by surgery and is being monitored for a potential colonoscopy in the future. Concerns to colonic abscess. Objective - Vital Signs Vital signs: Vital Signs Temp 98.8 F 05/06/17 15:45 Pulse 109 H 05/06/17 15:45 Resp 20 05/06/17 15:45 BP 131/63 05/06/17 15:45 Pulse Ox 97 05/06/17 15:45 Intake & Output 05/06/17 05/06/17 05/07/17 06:59 18:59 06:59 Intake Total 800 1220 Output Total 750 500 Balance 50 720 Weight 65 kg Intake: IV 800 800 Dextrose 5%-0.45% NaCl 1, 800 800 000 ml @ 100 mls/hr IV . Q10H [facility] Rx#:[id number] Oral 420 Output: Urine 750 500 Other: Voiding Method Indwelling Catheter Indwelling Catheter # Voids 2 - Exam 82-year-old male poor historian HEENT: Anicteric conjunctiva are pink and mildly crusty nasal mucosa grossly intact without significant lesions, there is no thrush but the oral cavity is very dry Neck: The neck is supple without significant lymphadenopathy or thyromegaly. Lungs: There is symmetrical air entry. Scattered expiratory wheezes are noted. Heart: Irregular with soft S4 no distinct murmur click or rub Abdomen: Positive bowel sounds soft and nontender without palpable masses or organomegaly. There was no guarding or rebound. Extremities: The extremities have some minimal trace edema but no significant lesions are seen in the upper extremities. The lower extremities have evidence of the extensive skin lesion the bilateral lower extremities. There is a healing left hip incision which is without erythema crepitance or fluctuance. Neuro: Arousable, speech content is poor and inconsistent can poorly understandable he however does move arms and legs spontaneously - Labs CBC & Chem 7: 05/04/17 23:29 05/06/17 05:54 Labs: Abnormal Lab Results - Last 24 Hours (Table) 05/06/17 Range/Units 05:54 Sodium 151 H (137-145) mmol/L Chloride 121 H* (98-107) mmol/L BUN 36 H (9-20) mg/dL Creatinine 1.64 H (0.66-1.25) mg/dL Glucose 103 H (74-99) mg/dL Calcium 8.3 L (8.4-10.2) mg/dL Microbiology - Last 24 Hours (Table) 05/03/17 17:57 Blood Culture - Preliminary Blood No Growth after 72 hours 05/04/17 23:29 Blood Culture - Preliminary Blood No Growth after 24 hours Laboratory Results WBC 14.7 k/uL (3.8-10.6) H 05/04/17 23:29 RBC 3.49 m/uL (4.30-5.90) L 05/04/17 23:29 Hgb 11.0 gm/dL (13.0-17.5) L 05/04/17 23:29 Hct 36.1 % (39.0-53.0) L 05/04/17 23:29 MCV 103.2 fL (80.0-100.0) H 05/04/17 23:29 MCH 31.4 pg (25.0-35.0) 05/04/17 23:29 MCHC 30.4 g/dL (31.0-37.0) L 05/04/17 23:29 RDW 16.5 % (11.5-15.5) H 05/04/17 23:29 Plt Count 268 k/uL (150-450) 05/04/17 23:29 Neutrophils % 93 % 05/04/17 23:29 Lymphocytes % 3 % 05/04/17 23:29 Monocytes % 3 % 05/04/17 23:29 Eosinophils % 0 % 05/04/17 23:29 Basophils % 0 % 05/04/17 23:29 Neutrophils # 13.6 k/uL (1.3-7.7) H 05/04/17 23:29 Lymphocytes # 0.4 k/uL (1.0-4.8) L 05/04/17 23:29 Monocytes # 0.5 k/uL (0-1.0) 05/04/17 23:29 Eosinophils # 0.1 k/uL (0-0.7) 05/04/17 23:29 Basophils # 0.0 k/uL (0-0.2) 05/04/17 23:29 Hypochromasia Moderate 05/04/17 23:29 Anisocytosis Slight 05/04/17 23:29 Macrocytosis Moderate 05/04/17 23:29 Sodium 151 mmol/L (137-145) H 05/06/17 05:54 Potassium 3.7 mmol/L (3.5-5.1) 05/06/17 05:54 Chloride 121 mmol/L (98-107) H* 05/06/17 05:54 Carbon Dioxide 23 mmol/L (22-30) 05/06/17 05:54 Anion Gap 7 mmol/L 05/06/17 05:54 BUN 36 mg/dL (9-20) H 05/06/17 05:54 Creatinine 1.64 mg/dL (0.66-1.25) H 05/06/17 05:54 Est GFR (MDRD) Af Amer 49 (>60 ml/min/1.73 sqM) 05/06/17 05:54 Est GFR (MDRD) Non-Af 41 (>60 ml/min/1.73 sqM) 05/06/17 05:54 Glucose 103 mg/dL (74-99) H 05/06/17 05:54 POC Glucose (mg/dL) 98 mg/dL (75-99) 05/04/17 22:36 POC Glu [employer]iding In[employer] Darryl James 05/04/17 22:36 Lactic Ac Sepsis Rflx Y 05/05/17 00:06 Plasma Lactic Acid Froy 1.3 mmol/L (0.7-2.0) 05/05/17 03:21 Calcium 8.3 mg/dL (8.4-10.2) L 05/06/17 05:54 Magnesium 1.6 mg/dL (1.6-2.3) 05/06/17 05:54 Total Bilirubin 1.0 mg/dL (0.2-1.3) 05/03/17 06:11 AST 36 U/L (17-59) 05/03/17 06:11 ALT 33 U/L (21-72) 05/03/17 06:11 Alkaline Phosphatase 147 U/L (38-126) H 05/03/17 06:11 Total Creatine Kinase 125 U/L (55-170) 05/02/17 17:46 CK-MB (CK-2) 3.7 ng/mL (0.0-2.4) H* 05/02/17 17:46 CK-MB (CK-2) Rel Index 3.0 05/02/17 17:46 Troponin I 0.029 ng/mL (0.000-0.034) 05/02/17 17:46 Total Protein 5.4 g/dL (6.3-8.2) L 05/03/17 06:11 Albumin 2.8 g/dL (3.5-5.0) L 05/03/17 06:11 Urine Color Yellow 05/02/17 19:18 Urine Appearance Cloudy (Clear) 05/02/17 19:18 Urine pH 6.0 (5.0-8.0) 05/02/17 19:18 Ur Specific [place] 1.011 (1.001-1.035) 05/02/17 19:18 Urine Protein 1+ (Negative) H 05/02/17 19:18 Urine Glucose (UA) Negative (Negative) 05/02/17 19:18 Urine Ketones Negative (Negative) 05/02/17 19:18 Urine Blood Moderate (Negative) H 05/02/17 19:18 Urine Nitrite Negative (Negative) 05/02/17 19:18 Urine Bilirubin Negative (Negative) 05/02/17 19:18 Urine Urobilinogen 3.0 mg/dL (<2.0) 05/02/17 19:18 Ur Leukocyte Esterase Large (Negative) H 05/02/17 19:18 Urine RBC 71 /hpf (0-5) H 05/02/17 19:18 Urine WBC 155 /hpf (0-5) H 05/02/17 19:18 Urine WBC Clumps Few /hpf (None) H 05/02/17 19:18 Urine Bacteria Few /hpf (None) H 05/02/17 19:18 Urine Mucus Rare /hpf (None) H 05/02/17 19:18 C. difficile (EIA) Intrp Negative (Negative) 05/03/17 15:54 Microbiology 05/03/17 17:57 Blood Blood Culture - Preliminary No Growth after 72 hours 05/04/17 23:29 Blood Blood Culture - Preliminary No Growth after 24 hours 05/03/17 03:00 Urine,Catheterized Urine Culture - Final Escherichia coli Assessment and Plan (1) Gram-negative sepsis with organ dysfunction Narrative/Plan: 82-year-old male transferred from extended care facility for alteration of his status. We'll request performed there was evidence of leukocytosis, acute renal failure, hyperkalemia. With this he was transferred to Hospital and is now received intervention and has been seen by nephrology. Because of his illness computed tomography scan of the abdomen and pelvis was performed showing evidence of the significant cecal dilatation and concerns to infection and abscess at that site. The patient has been seen by surgery and will plan colonoscopy when he is medically cleared. At the time of the consult fluid bolus was given since his computed tomography scan did not show evidence of heart failure. Antipyretics were given. The patient defervesced and his significant tachycardia and hypotension resolved. The patient has remained on selective care. His CODE STATUS is full, and apparently this has been addressed with the family and they do not yet understand the current ramifications of his illness. Ongoing discussion shall be held for more appropriate CODE STATUS. He does have a significant leukocytosis which is slightly improved today. There is evidence of urine culture with E. coli. His fever has improved a bit. Antibiotic therapy with Zosyn was initiated with concerns to the abdominal sepsis. We will also give coverage for his urinary tract infection based on prior cultures. He does have some crustiness to his eyes and Polysporin is given with improvement. His legs are wrapped and this will continue with the local care. His prognosis is poor. Status: Acute (2) Acute renal failure Status: Acute (3) Hyperkalemia Status: Acute (4) UTI (urinary tract infection) Status: Acute
[2017-05-06] MEDS: ACETAMINOPHEN TAB 325 MG TAB PO PRN (22:28)
[2017-05-06] MEDS: SENNOSIDES-DOCUSATE SODIUM 1 EACH TAB PO SCH (22:31)
[2017-05-07 06:13] LABS: Anisocytosis Slight; CH 31.3; CHCM 30.9; HCT 37.1 % (39.0-53.0); HDW 2.92; Hypochromasia Moderate; MCH 30.3 pg (25.0-35.0); MCHC 29.7 g/dL (31.0-37.0); MCV 101.9 fL (80.0-100.0); Macrocytosis Moderate; Mean Platelet Volume 9.2; RBC 3.64 m/uL (4.30-5.90); RDW 16.5 % (11.5-15.5); WBC 18.1 k/uL (3.8-10.6)
[2017-05-07] MEDS: IPRATROPIUM-ALBUTEROL 3 ML NEB INHALATION PRN ×2 (06:20→12:09)
[2017-05-07 06:40] LABS: Calcium 8.3 mg/dL (8.4-10.2); Potassium 3.1 mmol/L (3.5-5.1); Total Bilirubin 0.6 mg/dL (0.2-1.3); Total Protein 4.6 g/dL (6.3-8.2)
[2017-05-07] MEDS: CLOPIDOGREL 75 MG TAB PO SCH (09:11)
[2017-05-07] MEDS: amLODIPine 5 MG TAB PO SCH (09:12)
[2017-05-07] MEDS: ENOXAPARIN 30 MG/0.3 ML SYRINGE SQ SCH (09:12)
[2017-05-07] MEDS: PANTOPRAZOLE 40 MG/10 ML VIAL IVP SCH (09:12)
[2017-05-07] MEDS: PIPERACILLIN-TAZOBACTAM 3.375 GM in DEXTROSE/WATER 1 50ML.BAG IVPB SCH ×2 (09:12→16:19)
[2017-05-07] MEDS: FAMOTIDINE 20 MG TAB PO SCH (09:12)
[2017-05-07] MEDS: CLOTRIMAZOLE/BETAMETH 1-0.05% CREAM 45 GM TUBE TOPICAL SCH ×2 (09:15→21:10)
[2017-05-07] MEDS: AMMONIUM LACTATE 12% LOTION 225 GM BTL TOPICAL SCH ×2 (09:15→21:10)
[2017-05-07] MEDS: BACITRACIN/POLYMYX 500-10,000 UNIT/GM OPHTH OINT 3.5 GM TUBE BOTH EYES SCH ×4 (09:15→21:10)
--- NOTE | 2017-05-07 10:31 | P.PN ---
Progress Note - Text This is an 82-year-old gentleman with history of prior CVA, hypertension, GERD, degenerative joint disease, who currently resides in an extended care facility. Patient apparently had several lab tests drawn and was found to be in acute renal failure for this reason he was recommended to come to the hospital for admission. According to the patient, he had been feeling his usual self, it is hard to get answers to every question. Patient was afebrile here on admission for the first couple of days, then was noted to develop a fever of 100.6, he became tachycardic and was hypotensive. This morning his heart rate is noted to be in the 100s, sinus tachycardia, mucous membranes appear quite dry. Blood pressure this morning 142/90, cardiology consultation was requested because of the tachycardia. White blood cell count on admission 17.3, 14.7 this morning. Hemoglobin 11.0. Potassium on admission 6.4, 3.7 this morning. BUN on admission 76, creatinine 4.1, BUN this morning 36 , creatinine 1.6. Troponin 0.039. Positive UTI. He is currently receiving antibiotics for possible UTI, patient states he has been having loose stools prior to coming here as well. He denies any chest discomfort, breathing has been stable overall. He continues to be tachycardic with heart rate around 110 220 beats per minutes. I will start the patient on metoprolol.
[2017-05-07] MEDS ORDERED: POTASSIUM CHLORIDE ER 20 MEQ TAB.ER PO STA (10:40)
--- NOTE | 2017-05-07 11:03 | P.PN ---
Subjective Patient is seen in follow-up for acute kidney injury. His potassium was 6.4 on admission. Renal function is improving with creatinine down to 1.4. Hyperkalemia has resolved. Baseline creatinine is 1. Patient's currently resting in bed. He is not a very reliable historian. He is maintained on D5W. He has a Granados catheter in place. He is nonoliguric. Vital signs are stable. General: The patient appeared well nourished and normally developed. HEENT: Head exam is unremarkable. Neck is without jugular venous distension. LUNGS: Lungs are clear to auscultation and percussion. Breath sounds decreased. HEART: Rate and Rhythm are regular. First and second heart sounds normal. No murmurs, rubs or gallops. ABDOMEN: Abdominal exam reveals normal bowel sounds. Non-tender and non- distended. No evidence of peritonitis. EXTREMITITES: No clubbing, cyanosis, or edema. Objective - Vital Signs Vital signs: Vital Signs Temp 96.8 F L 05/07/17 08:00 Pulse 139 H 05/07/17 08:00 Resp 20 05/07/17 08:00 BP 117/76 05/07/17 08:00 Pulse Ox 97 05/07/17 08:00 Intake & Output 05/06/17 05/07/17 05/07/17 18:59 06:59 18:59 Intake Total 1220 Output Total 500 300 Balance 720 -300 Weight 67.5 kg 67.5 kg Intake: IV 800 Dextrose 5%-0.45% NaCl 1, 800 000 ml @ 100 mls/hr IV . Q10H [facility] Rx#:[id number] Oral 420 Output: Urine 500 300 Other: Voiding Method Indwelling Catheter Indwelling Catheter Indwelling Catheter # Voids 2 - Labs CBC & Chem 7: 05/07/17 05:59 05/07/17 05:59 Labs: Abnormal Lab Results - Last 24 Hours (Table) 05/07/17 05/07/17 Range/Units 05:59 05:59 WBC 18.1 H (3.8-10.6) k/uL RBC 3.64 L (4.30-5.90) m/uL Hgb 11.0 L (13.0-17.5) gm/dL Hct 37.1 L (39.0-53.0) % MCV 101.9 H (80.0-100.0) fL MCHC 29.7 L (31.0-37.0) g/dL RDW 16.5 H (11.5-15.5) % Sodium 146 H (137-145) mmol/L Potassium 3.1 L (3.5-5.1) mmol/L Chloride 116 H (98-107) mmol/L Carbon Dioxide 21 L (22-30) mmol/L BUN 30 H (9-20) mg/dL Creatinine 1.40 H (0.66-1.25) mg/dL Glucose 105 H (74-99) mg/dL Calcium 8.3 L (8.4-10.2) mg/dL Total Protein 4.6 L (6.3-8.2) g/dL Albumin 2.1 L (3.5-5.0) g/dL Microbiology - Last 24 Hours (Table) 05/04/17 23:29 Blood Culture - Preliminary Blood No Growth after 48 hours 05/03/17 17:57 Blood Culture - Preliminary Blood No Growth after 72 hours Assessment and Plan Plan: Assessment: #1. Nonoliguric acute kidney injury mostly prerenal from diuresis. There may have also been a component of urinary retention. Improving with IV hydration. Creatinine was 4.1 on admission and was down to 1.4. #2. Hyperkalemia secondary to acute kidney injury and potassium supplementation. Improved with medical treatment. Now hypokalemic. #3. UTI. Urine culture positive for gram-negative bacilli - E. coli. #4. Hypernatremia secondary to lack of oral water intake. #5. Cecal dilation with concern of abscess. Plan: I will decrease D5W to be run at 50 mL an hour. Avoid nephrotoxic agents and hypotensive episodes. Continue to hold off on DANIEL inhibitor, diuretics. Continue antibiotics per infectious disease recommendations. Replace potassium - 60 meq today. Repeat Mg level.
[2017-05-07] MEDS: POTASSIUM CHLORIDE 10 MEQ, LIDOCAINE 2% INJ 10 MG in SODIUM CHLORIDE 0.9% 100 ML IVPB SCH ×4 (11:15→16:17)
[2017-05-07] MEDS: METOPROLOL TARTRATE 25 MG TAB PO SCH (17:30)
--- NOTE | 2017-05-07 17:51 | P.PN ---
Progress Note - Text The patient remained stable. He has no real complaints of abdominal pain. On exam is lesser stable. His evidence soft. Patient has a questionable rectal mass. We will perform colonoscopy when medically stable.
[2017-05-07] MEDS: SENNOSIDES-DOCUSATE SODIUM 1 EACH TAB PO SCH (21:10)
[2017-05-07] MEDS: LORazepam 2 MG/ML SYRINGE IV PRN (21:13)
[2017-05-08] MEDS: PIPERACILLIN-TAZOBACTAM 3.375 GM in DEXTROSE/WATER 1 50ML.BAG IVPB SCH ×4 (00:35→23:00)
[2017-05-08] MEDS: ENOXAPARIN 40 MG/0.4 ML SYRINGE SQ SCH (05:18)
[2017-05-08 06:33] LABS: Calcium 8.2 mg/dL (8.4-10.2); Magnesium 1.9 mg/dL (1.6-2.3); Potassium 3.7 mmol/L (3.5-5.1)
[2017-05-08] MEDS: FAMOTIDINE 20 MG TAB PO SCH (07:40)
--- NOTE | 2017-05-08 08:10 | P.PN ---
Objective - Vital Signs Vital signs: Vital Signs Temp 98.6 F 05/08/17 04:00 Pulse 109 H 05/08/17 04:00 Resp 17 05/08/17 04:00 BP 132/76 05/08/17 04:00 Pulse Ox 95 05/08/17 04:00 Intake & Output 05/07/17 05/08/17 05/08/17 18:59 06:59 18:59 Intake Total 700 Output Total 600 Balance 700 -600 Weight 67.5 kg 65.5 kg Intake: Intake, IV Titration 700 Amount Dextrose 5% in Water 1, 250 000 ml @ 100 mls/hr IV . Q10H ONE Rx#:[id number] Piperacillin-Tazobactam 3 50 .375 gm In Dextrose/Water 1 50ml.bag @ 12.5 mls/hr IVPB Q8HR [facility] Rx#: [id number] Potassium Chloride 10 meq 400 Lidocaine 2% Inj 10 mg In Sodium Chloride 0.9% 100 ml @ 100 mls/hr IVPB Q1HR [facility] Rx#:[id number] Output: Urine 600 Other: Voiding Method Indwelling Catheter Indwelling Catheter # Voids 1 - Constitutional General appearance: Present: average body habitus - EENT Eyes: Absent: abnormal pupil - Respiratory Respiratory: bilateral: diminished - Cardiovascular Details: Tachycardic. Rhythm: regular Heart sounds: normal: S1, S2 - Gastrointestinal General gastrointestinal: Present: soft. Absent: tenderness - Neurologic Neurologic Comment(s): Disoriented at this time. - Labs CBC & Chem 7: 05/07/17 05:59 05/08/17 05:45 Labs: Abnormal Lab Results - Last 24 Hours (Table) 05/08/17 Range/Units 05:45 Sodium 150 H (137-145) mmol/L Chloride 119 H (98-107) mmol/L BUN 27 H (9-20) mg/dL Creatinine 1.40 H (0.66-1.25) mg/dL Calcium 8.2 L (8.4-10.2) mg/dL Microbiology - Last 24 Hours (Table) 05/04/17 23:29 Blood Culture - Preliminary Blood No Growth after 72 hours 05/03/17 17:57 Blood Culture - Preliminary Blood No Growth after 96 hours Assessment and Plan (1) Acute renal failure Status: Acute (2) Gram-negative sepsis with organ dysfunction Status: Acute (3) CVA (cerebral vascular accident) Status: Acute Plan: The patient has had somewhat of decline compared to yesterday. Much more disorientation is noted. Tachypnea is also noted. He seems more disoriented this morning. I spoke to the this morning and she was is for the patient to be continued as a full resuscitation. We'll go ahead and consult pulmonology. Also we will ask neurology to follow the patient in consultation for continued altered mental status with history of CVA. Check CBC and CMP in the a.m. Prognosis is guarded secondary to sudden change and multiple comorbidities including old CVA and element of renal failure. Appreciate cardiology, nephrology and surgical previous input. Time with Patient: Greater than 30
[2017-05-08] MEDS: IPRATROPIUM-ALBUTEROL 3 ML NEB INHALATION PRN (08:32)
[2017-05-08] MEDS: PANTOPRAZOLE 40 MG/10 ML VIAL IVP SCH (09:59)
[2017-05-08] MEDS: CLOPIDOGREL 75 MG TAB PO SCH (10:00)
[2017-05-08] MEDS: METOPROLOL TARTRATE 25 MG TAB PO SCH (10:00)
--- NOTE | 2017-05-08 10:37 | P.PN ---
Subjective Patient is seen in follow-up for acute kidney injury. His potassium was 6.4 on admission. Renal function is stable with creatinine at 1.4. Hyperkalemia has resolved. Baseline creatinine is 1. Patient's currently resting in bed. He is not a very reliable historian. He is maintained on D5W. He has a Granados catheter in place. He is nonoliguric. Oral intake remains poor. He was noted to be tachycardic this morning with heart rate in the 140s. Vital signs are stable. General: The patient appeared well nourished and normally developed. HEENT: Head exam is unremarkable. Neck is without jugular venous distension. LUNGS: Lungs are clear to auscultation and percussion. Breath sounds decreased. HEART: Rate and Rhythm are regular. First and second heart sounds normal. No murmurs, rubs or gallops. ABDOMEN: Abdominal exam reveals normal bowel sounds. Non-tender and non- distended. No evidence of peritonitis. EXTREMITITES: No clubbing, cyanosis, or edema. Objective - Vital Signs Vital signs: Vital Signs Temp 98.2 F 05/08/17 08:00 Pulse 108 H 05/08/17 08:43 Resp 28 H 05/08/17 08:00 BP 125/83 05/08/17 08:00 Pulse Ox 93 L 05/08/17 08:00 Intake & Output 05/07/17 05/08/17 05/08/17 18:59 06:59 18:59 Intake Total 700 Output Total 600 Balance 700 -600 Weight 67.5 kg 65.5 kg Intake: Intake, IV Titration 700 Amount Dextrose 5% in Water 1, 250 000 ml @ 100 mls/hr IV . Q10H [facility] Rx#:[id number] Piperacillin-Tazobactam 3 50 .375 gm In Dextrose/Water 1 50ml.bag @ 12.5 mls/hr IVPB Q8HR [facility] Rx#: [id number] Potassium Chloride 10 meq 400 Lidocaine 2% Inj 10 mg In Sodium Chloride 0.9% 100 ml @ 100 mls/hr IVPB Q1HR [facility] Rx#:[id number] Output: Urine 600 Other: Voiding Method Indwelling Catheter Indwelling Catheter Indwelling Catheter # Voids 1 - Labs CBC & Chem 7: 05/07/17 05:59 05/08/17 05:45 Labs: Abnormal Lab Results - Last 24 Hours (Table) 05/08/17 Range/Units 05:45 Sodium 150 H (137-145) mmol/L Chloride 119 H (98-107) mmol/L BUN 27 H (9-20) mg/dL Creatinine 1.40 H (0.66-1.25) mg/dL Calcium 8.2 L (8.4-10.2) mg/dL Microbiology - Last 24 Hours (Table) 05/04/17 23:29 Blood Culture - Preliminary Blood No Growth after 72 hours 05/03/17 17:57 Blood Culture - Preliminary Blood No Growth after 96 hours Assessment and Plan Plan: Assessment: #1. Nonoliguric acute kidney injury secondary to ischemic ATN due to hemodynamic instability and diuresis. There may have also been a component of urinary retention. Improved with IV hydration. Creatinine was 4.1 on admission and is down to 1.4. #2. Hyperkalemia secondary to acute kidney injury and potassium supplementation. Improved with medical treatment. #3. UTI. Urine culture positive for gram-negative bacilli - E. coli. #4. Hypernatremia secondary to lack of oral water intake. #5. Cecal dilation with concern of abscess. Plan: Increase D5W to be run at 75 mL an hour. Avoid nephrotoxic agents and hypotensive episodes. Continue to hold off on DANIEL inhibitor, diuretics. Continue antibiotics per infectious disease recommendations. Maintain Granados catheter. Repeat electrolytes in the morning.
--- NOTE | 2017-05-08 11:34 | P.CNPUL ---
History of Present Illness Consult date: 05/08/17 Requesting physician: Bryson Anderson Reason for consult: other (Tachypnea and respiratory distress) Chief complaint: Shortness of breath History of present illness: This is an 82-year-old male patient who came into the emergency department on from an extended care facility. Patient was noted to have a potassium of 6.4 at the extended care facility and therefore they sent him over. The patient did not have any further complaints and he has intermittent confusion which is his baseline. EKG performed in the emergency room did show sinus rhythm with occasional PVCs, patient had no ST segment elevation or depression or T-wave abnormalities. The patient was put on lactulose. Hypertension is also being worked up for possible rectal mass and will undergo colonoscopy when stable with Dr. Piña. All labs and reports have been reviewed. Patient is being seen and examined today on the sixth floor for pulmonary services related to progression of shortness of breath over the last few days. He has had a cough however denies any congestion. Nursing staff has denied any sputum production. He is alert and oriented 1 with intermittent confusion. Has been afebrile. Currently is on 3 L of supplemental oxygen via nasal cannula. It is unclear if the patient utilized oxygen in the extended care facility setting. Patient is also on a mechanical soft diet with aspiration precautions. Review of Systems 14 point review of systems was completed and is negative unless noted above in the HPI. 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, hearing loss, and memory impairment, very dry skin History of Any Multi-Drug Resistant Organisms: None Reported Additional Past Surgical History / Comment(s): hemorrhoidectomy, bilateral rotator cuff Past Anesthesia/Blood Transfusion Reactions: No Reported Reaction Past Psychological History: No Psychological Hx Reported Smoking Status: Unknown if ever smoked Past Alcohol Use History: None Reported Past Drug Use History: None Reported - Past Family History Sister(s) Family Medical History: CVA/TIA Medications and Allergies Home Medications Medication Instructions Recorded Confirmed Type Bisoprolol-Hctz 10-6.25 mg [Ziac 1 tab PO DAILY@89901/25/14 05/02/17 History 10-6.25 MG] Clopidogrel [Plavix] 75 mg PO DAILY@0900 01/25/14 05/02/17 History amLODIPine BESYLATE/BENAZEPRIL 1 cap PO DAILY@0901/25/14 05/02/17 History [Lotrel 5-20 mg Capsule] Ranitidine HCl [Zantac] 150 mg PO DAILY@0600 04/05/17 05/02/17 History Ammonium Lactate Lotion 1 applic TOPICAL BID 05/02/17 05/02/17 History [Lac-Hydrin 12% Lotion] Clotrimazole/Betamethasone Dip 1 applic TOPICAL BID 05/02/17 05/02/17 History [Lotrisone Cream] Enoxaparin [Lovenox] 40 mg SQ DAILY@59905/02/17 05/02/17 History Furosemide [Lasix] 40 mg PO BID@0900,209905/02/17 05/02/17 History HYDROcodone/APAP 10-325MG [[place] 1 tab PO Q6H PRN 05/02/17 05/02/17 History 10-325] Lactose-Reduced Food [Ensure Plus] 120 ml PO AC-TID@,,05/02/17 05/02/17 History Magnesium Hydroxide [Milk of 2,400 mg PO DAILY PRN 05/02/17 05/02/17 History Magnesia] Potassium Chloride ER [K-Dur 20] 20 meq PO BID@0900,209905/02/17 05/02/17 History Sennosides-Docusate Sodium 2 tab PO HS@209905/02/17 05/02/17 History [Senokot-S] Triad Wound Paste 1 applic TOPICAL BID 05/02/17 05/02/17 History Allergies Allergy/AdvReac Type Severity Reaction Status Date / Time No Known Allergies Allergy Verified 05/02/17 17:34 Physical Exam Vitals: Vital Signs Temp Pulse Pulse Resp BP BP Pulse Ox 05/08/17 08:43 108 H 05/08/17 08:32 104 H 05/08/17 08:00 98.2 F 138 H 28 H 125/83 93 L 05/08/17 04:00 98.6 F 109 H 17 132/76 95 05/07/17 23:48 97.8 F 100 18 118/72 94 L 05/07/17 20:00 98.9 F 117 H 19 128/67 95 05/07/17 16:00 97 F L 149 H 20 110/58 97 05/07/17 12:23 100 05/07/17 12:11 97 05/07/17 12:10 108 H 05/07/17 12:00 98.9 F 121 H 20 111/51 97 Intake and Output 05/07/17 05/08/17 05/08/17 22:59 06:59 14:59 Output Total 600 Balance -600 Output: Urine 600 Other: Voiding Method Indwelling Catheter Indwelling Catheter Indwelling Catheter # Voids 1 Weight 65.5 kg GENERAL EXAM: Alert, intermittent confusion noted which is baseline, comfortable in no apparent distress. HEAD: Normocephalic. EYES: Normal reaction of pupils, equal size. NOSE: Clear with pink turbinates. THROAT: No erythema or exudates. NECK: No masses, no JVD. CHEST: No chest wall deformity. LUNGS: Equal air entry with no crackles, wheeze, rhonchi or dullness. Breath sounds decreased bilaterally. CVS: S1 and S2 normal with no audible mumurs, regular rhythm. ABDOMEN: No hepatosplenomegaly, normal bowel sounds, no guarding or rigidity. EXTREMITIES: No edema noted, pedal pulses palpable. SKIN: No rashes CENTRAL NERVOUS SYSTEM: No focal deficits, moves all 4 extremities. Results - Laboratory Findings CBC and BMP: 05/07/17 05:59 05/08/17 05:45 Abnormal lab findings: Abnormal Labs 05/02/17 05/02/17 05/02/17 17:46 17:46 17:46 WBC 17.3 H RBC 3.81 L Hgb 12.2 L Hct 38.3 L MCV 100.5 H MCHC RDW 17.6 H Neutrophils # 13.9 H Lymphocytes # Monocytes # 1.2 H Sodium Potassium 6.4 H* Chloride Carbon Dioxide BUN 76 H Creatinine 4.10 H Glucose Plasma Lactic Acid Froy Calcium Alkaline Phosphatase 185 H CK-MB (CK-2) 3.7 H* Total Protein Albumin 3.4 L Urine Protein Urine Blood Ur Leukocyte Esterase Urine RBC Urine WBC Urine WBC Clumps Urine Bacteria Urine Mucus 05/02/17 05/03/17 05/03/17 19:18 06:11 06:11 WBC 13.5 H RBC 3.58 L Hgb 11.3 L Hct 36.3 L MCV 101.4 H MCHC RDW 16.7 H Neutrophils # 10.8 H Lymphocytes # Monocytes # Sodium Potassium 5.2 H Chloride 109 H Carbon Dioxide BUN 71 H Creatinine 3.52 H Glucose Plasma Lactic Acid Froy Calcium Alkaline Phosphatase 147 H CK-MB (CK-2) Total Protein 5.4 L Albumin 2.8 L Urine Protein 1+ H Urine Blood Moderate H Ur Leukocyte Esterase Large H Urine RBC 71 H Urine WBC 155 H Urine WBC Clumps Few H Urine Bacteria Few H Urine Mucus Rare H 05/04/17 05/04/17 05/04/17 08:56 23:24 23:29 WBC RBC Hgb Hct MCV MCHC RDW Neutrophils # Lymphocytes # Monocytes # Sodium 147 H 148 H Potassium Chloride 113 H 118 H Carbon Dioxide 21 L BUN 52 H 46 H Creatinine 2.29 H 1.90 H Glucose 100 H Plasma Lactic Acid Froy 2.1 H* Calcium Alkaline Phosphatase CK-MB (CK-2) Total Protein Albumin Urine Protein Urine Blood Ur Leukocyte Esterase Urine RBC Urine WBC Urine WBC Clumps Urine Bacteria Urine Mucus 05/04/17 05/05/17 05/06/17 23:29 03:21 05:54 WBC 14.7 H RBC 3.49 L Hgb 11.0 L Hct 36.1 L MCV 103.2 H MCHC 30.4 L RDW 16.5 H Neutrophils # 13.6 H Lymphocytes # 0.4 L Monocytes # Sodium 149 H 151 H Potassium Chloride 117 H 121 H* Carbon Dioxide BUN 44 H 36 H Creatinine 1.90 H 1.64 H Glucose 100 H 103 H Plasma Lactic Acid Froy Calcium 8.3 L Alkaline Phosphatase CK-MB (CK-2) Total Protein Albumin Urine Protein Urine Blood Ur Leukocyte Esterase Urine RBC Urine WBC Urine WBC Clumps Urine Bacteria Urine Mucus 05/07/17 05/07/17 05/08/17 05:59 05:59 05:45 WBC 18.1 H RBC 3.64 L Hgb 11.0 L Hct 37.1 L MCV 101.9 H MCHC 29.7 L RDW 16.5 H Neutrophils # Lymphocytes # Monocytes # Sodium 146 H 150 H Potassium 3.1 L Chloride 116 H 119 H Carbon Dioxide 21 L BUN 30 H 27 H Creatinine 1.40 H 1.40 H Glucose 105 H Plasma Lactic Acid Froy Calcium 8.3 L 8.2 L Alkaline Phosphatase CK-MB (CK-2) Total Protein 4.6 L Albumin 2.1 L Urine Protein Urine Blood Ur Leukocyte Esterase Urine RBC Urine WBC Urine WBC Clumps Urine Bacteria Urine Mucus - Diagnostic Findings Chest x-ray: report reviewed, image reviewed CT scan - chest: report reviewed, image reviewed Assessment and Plan Plan: Assessment Sepsis with fever, gram-negative Acute hypoxic respiratory failure Hyperkalemia, improved Acute renal failure Urinary tract infection, culture positive for gram negatives bacilli and E. coli Hypernatremia likely related to decreased oral intake Probable rectal mass, currently being worked up Diarrhea History of CVA Plan Medications have been reviewed and will be continued as ordered. Continue to monitor electrolytes. Patient will undergo colonoscopy once cleared. Continue with pulmonary hygiene, coughing and deep breathing exercises, and supportive care. Supplemental oxygen to maintain oxygen saturations of 92% or better. We will add nebulizer treatments in the form of DuoNeb and budesonide. Obtain chest x-ray in the morning. GI and DVT prophylaxis. Appreciate consults recommendations. We will continue to monitor labs/results and adjust treatment as necessary. Further recommendations pending. I performed an examination of the patient and discussed their management with the nurse practitioner. I have reviewed the nurse practitioner's note and agree with the documented findings and plan of care.
[2017-05-08] MEDS: IPRATROPIUM-ALBUTEROL 3 ML NEB INHALATION SCH ×2 (13:03→20:52)
--- NOTE | 2017-05-08 13:52 | P.PN ---
Progress Note - Text This is an 82-year-old gentleman with history of prior CVA, hypertension, GERD, degenerative joint disease, who currently resides in an extended care facility. Patient apparently had several lab tests drawn and was found to be in acute renal failure for this reason he was recommended to come to the hospital for admission. Clinically the patient continues to be confused. We get involved in the care of the patient because he was tachycardic with sinus tachycardia but he was spiking fever. He was started on metoprolol 25 mg by mouth twice a day yesterday and the heart rate has improved a little but he still tachycardic. I'm going to increase the dose of metoprolol to 50 mg by mouth twice a day
--- NOTE | 2017-05-08 14:23 | XR ---
EXAMINATION TYPE: XR chest 1V DATE OF EXAM: 05/08/2017 COMPARISON: Prior chest x-ray 04/13/2017 HISTORY: Wheezing, altered mental status TECHNIQUE: Single frontal view of the chest is obtained. FINDINGS: Subsegmental atelectatic change is suspected at the lung bases. No evident pneumothorax or sizable effusion. Heart size is stable, there may be accentuated heart size due to rotation. There a re overlying cardiac leads. Lung volumes are low. IMPRESSION: Probable basilar atelectasis. Cardiomegaly thought likely to be projectional.
[2017-05-08] MEDS: BACITRACIN/POLYMYX 500-10,000 UNIT/GM OPHTH OINT 3.5 GM TUBE BOTH EYES SCH ×4 (18:17→22:31)
[2017-05-08] MEDS: CLOTRIMAZOLE/BETAMETH 1-0.05% CREAM 45 GM TUBE TOPICAL SCH ×2 (18:17→20:43)
[2017-05-08] MEDS: AMMONIUM LACTATE 12% LOTION 225 GM BTL TOPICAL SCH ×2 (18:33→20:43)
[2017-05-08] MEDS: DEXTROSE 5% IN WATER 1,000 ML IV SCH (18:34)
[2017-05-08] MEDS: METOPROLOL TARTRATE 50 MG TAB PO SCH (20:43)
[2017-05-08] MEDS: SENNOSIDES-DOCUSATE SODIUM 1 EACH TAB PO SCH (20:44)
[2017-05-08] MEDS: BUDESONIDE 0.5 MG/2 ML NEBU INHALATION SCH (20:50)
--- NOTE | 2017-05-08 21:23 | P.CNNES ---
History of Present Illness Consult date: 05/08/17 History of Present Illness: The patient is an 82-year-old man who was admitted to the hospital on May 02 through the emergency department from an extended care facility because of abnormal labs. His potassium was 6.4. He was admitted to the hospital with acute renal failure and hyperkalemia UN was 76 and his creatinine was 4.1 during his hospital stay his been treated for acute renal failure and UTI as well as respiratory disturbance. Neurology is requested to see the patient today because of altered mental status he had become more disoriented. He does have a history of stroke and is on Plavix. 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, hearing loss, and memory impairment, very dry skin History of Any Multi-Drug Resistant Organisms: None Reported Additional Past Surgical History / Comment(s): hemorrhoidectomy, bilateral rotator cuff Past Anesthesia/Blood Transfusion Reactions: No Reported Reaction Past Psychological History: No Psychological Hx Reported Smoking Status: Unknown if ever smoked Past Alcohol Use History: None Reported Past Drug Use History: None Reported - Past Family History Sister(s) Family Medical History: CVA/TIA Medications and Allergies Home Medications Medication Instructions Recorded Confirmed Type Bisoprolol-Hctz 10-6.25 mg [Ziac 1 tab PO DAILY@89901/25/14 05/02/17 History 10-6.25 MG] Clopidogrel [Plavix] 75 mg PO DAILY@89901/25/14 05/02/17 History amLODIPine BESYLATE/BENAZEPRIL 1 cap PO DAILY@89901/25/14 05/02/17 History [Lotrel 5-20 mg Capsule] Ranitidine HCl [Zantac] 150 mg PO DAILY@59904/05/17 05/02/17 History Ammonium Lactate Lotion 1 applic TOPICAL BID 05/02/17 05/02/17 History [Lac-Hydrin 12% Lotion] Clotrimazole/Betamethasone Dip 1 applic TOPICAL BID 05/02/17 05/02/17 History [Lotrisone Cream] Enoxaparin [Lovenox] 40 mg SQ DAILY@59905/02/1717 History Furosemide [Lasix] 40 mg PO BID@0900,2100 05/02/17 05/02/17 History HYDROcodone/APAP 10-325MG [[place] 1 tab PO Q6H PRN 05/02/17 05/02/17 History 10-325] Lactose-Reduced Food [Ensure Plus] 120 ml PO AC-TID@10,14,21 05/02/17 05/02/17 History Magnesium Hydroxide [Milk of 2,400 mg PO DAILY PRN 05/02/17 05/02/17 History Magnesia] Potassium Chloride ER [K-Dur 20] 20 meq PO BID@0900,2100 05/02/17 05/02/17 History Sennosides-Docusate Sodium 2 tab PO HS@209905/02/17 05/02/17 History [Senokot-S] Triad Wound Paste 1 applic TOPICAL BID 05/02/17 05/02/17 History Allergies Allergy/AdvReac Type Severity Reaction Status Date / Time No Known Allergies Allergy Verified 05/02/17 17:34 Physical Examination - Vital Signs Vital Signs: Vital Signs Temp Pulse Pulse Resp BP BP Pulse Ox 05/08/17 21:02 128 H 05/08/17 20:52 117 H 94 L 05/08/17 20:00 97.0 F L 77 24 146/74 92 L 05/08/17 16:00 95 16 110/55 98 05/08/17 13:14 96 05/08/17 13:04 100 05/08/17 12:00 98.0 F 99 16 141/79 98 05/08/17 08:43 108 H 05/08/17 08:32 104 H 05/08/17 08:00 98.2 F 138 H 28 H 125/83 93 L 05/08/17 04:00 98.6 F 109 H 17 132/76 95 05/07/17 23:48 97.8 F 100 18 118/72 94 L Intake and Output 05/08/17 05/08/17 05/08/17 06:59 14:59 22:59 Output Total 600 Balance -600 Output: Urine 600 Other: Voiding Method Indwelling Catheter Indwelling Catheter Indwelling Catheter Weight 65.5 kg 65.5 kg 65.5 kg Patient Weight 05/09/17 06:59 Weight 65.5 kg - Constitutional General appearance: disheveled - EENT EENT: PERRL, hearing intact, vision intact - Respiratory Respiratory: no respiratory distress - Cardiovascular Cardiovascular: regular rate, normal S1, normal S2 - Neurologic The patient was sleeping but easily arousable. He was oriented to person his voice was hypophonic he was disoriented to time and place there was no a aphasia or dysarthria is unable to spell or count is unable to give the season Cranial nerve examination: EOMI, VFF, face symmetric, tongue midline Sensorimotor examination: intact Detailed motor examination: other (He had fairly good strength in both upper extremities it was difficult to test his lower limbs but no focal paralysis was detected) - Psychiatric Psychiatric: cooperative Results - Laboratory Findings CBC and BMP: 05/07/17 05:59 05/08/17 05:45 Abnormal Lab Findings: Abnormal Labs 05/02/17 05/02/17 05/02/17 17:46 17:46 17:46 WBC 17.3 H RBC 3.81 L Hgb 12.2 L Hct 38.3 L MCV 100.5 H MCHC RDW 17.6 H Neutrophils # 13.9 H Lymphocytes # Monocytes # 1.2 H Sodium Potassium 6.4 H* Chloride Carbon Dioxide BUN 76 H Creatinine 4.10 H Glucose Plasma Lactic Acid Froy Calcium Alkaline Phosphatase 185 H CK-MB (CK-2) 3.7 H* Total Protein Albumin 3.4 L Urine Protein Urine Blood Ur Leukocyte Esterase Urine RBC Urine WBC Urine WBC Clumps Urine Bacteria Urine Mucus 05/02/17 05/03/17 05/03/17 19:18 06:11 06:11 WBC 13.5 H RBC 3.58 L Hgb 11.3 L Hct 36.3 L MCV 101.4 H MCHC RDW 16.7 H Neutrophils # 10.8 H Lymphocytes # Monocytes # Sodium Potassium 5.2 H Chloride 109 H Carbon Dioxide BUN 71 H Creatinine 3.52 H Glucose Plasma Lactic Acid Froy Calcium Alkaline Phosphatase 147 H CK-MB (CK-2) Total Protein 5.4 L Albumin 2.8 L Urine Protein 1+ H Urine Blood Moderate H Ur Leukocyte Esterase Large H Urine RBC 71 H Urine WBC 155 H Urine WBC Clumps Few H Urine Bacteria Few H Urine Mucus Rare H 05/04/17 05/04/17 05/04/17 08:56 23:24 23:29 WBC RBC Hgb Hct MCV MCHC RDW Neutrophils # Lymphocytes # Monocytes # Sodium 147 H 148 H Potassium Chloride 113 H 118 H Carbon Dioxide 21 L BUN 52 H 46 H Creatinine 2.29 H 1.90 H Glucose 100 H Plasma Lactic Acid Froy 2.1 H* Calcium Alkaline Phosphatase CK-MB (CK-2) Total Protein Albumin Urine Protein Urine Blood Ur Leukocyte Esterase Urine RBC Urine WBC Urine WBC Clumps Urine Bacteria Urine Mucus 05/04/17 05/05/17 05/06/17 23:29 03:21 05:54 WBC 14.7 H RBC 3.49 L Hgb 11.0 L Hct 36.1 L MCV 103.2 H MCHC 30.4 L RDW 16.5 H Neutrophils # 13.6 H Lymphocytes # 0.4 L Monocytes # Sodium 149 H 151 H Potassium Chloride 117 H 121 H* Carbon Dioxide BUN 44 H 36 H Creatinine 1.90 H 1.64 H Glucose 100 H 103 H Plasma Lactic Acid Froy Calcium 8.3 L Alkaline Phosphatase CK-MB (CK-2) Total Protein Albumin Urine Protein Urine Blood Ur Leukocyte Esterase Urine RBC Urine WBC Urine WBC Clumps Urine Bacteria Urine Mucus 05/07/17 05/07/17 05/08/17 05:59 05:59 05:45 WBC 18.1 H RBC 3.64 L Hgb 11.0 L Hct 37.1 L MCV 101.9 H MCHC 29.7 L RDW 16.5 H Neutrophils # Lymphocytes # Monocytes # Sodium 146 H 150 H Potassium 3.1 L Chloride 116 H 119 H Carbon Dioxide 21 L BUN 30 H 27 H Creatinine 1.40 H 1.40 H Glucose 105 H Plasma Lactic Acid Froy Calcium 8.3 L 8.2 L Alkaline Phosphatase CK-MB (CK-2) Total Protein 4.6 L Albumin 2.1 L Urine Protein Urine Blood Ur Leukocyte Esterase Urine RBC Urine WBC Urine WBC Clumps Urine Bacteria Urine Mucus Assessment and Plan (1) Metabolic encephalopathy Status: Acute Code(s): G93.41 - METABOLIC ENCEPHALOPATHY (2) Acute renal failure Status: Acute Code(s): N17.9 - ACUTE KIDNEY FAILURE, UNSPECIFIED (3) Gram negative sepsis Status: Acute Code(s): A41.50 - GRAM-NEGATIVE SEPSIS, UNSPECIFIED Plan: The patient is an 82-year-old man admitted through the emergency room from an extended care facility with acute renal failure and hyperkalemia. During the course of his hospital stay he was treated for sepsis and he had some altered mental status in the last few days. Neurology is requested to see the patient today for evaluation. is unable to give much history. He is able to follow a few commands. He is somewhat lethargic but arousable to command recommend evaluation with CT brain and EEG
[2017-05-08] MEDS: DIAZEPAM 5 MG TAB PO PRN (23:44)
[2017-05-08] MEDS: HYDROcodone/APAP 10-325MG 1 EACH TAB PO PRN (23:44)
[2017-05-09 06:34] LABS: Anisocytosis Slight; CH 30.9; CHCM 30.1; HCT 37.2 % (39.0-53.0); HDW 3.05; Hypochromasia Marked; MCH 30.7 pg (25.0-35.0); MCHC 29.7 g/dL (31.0-37.0); MCV 103.5 fL (80.0-100.0); Macrocytosis Moderate; RBC 3.59 m/uL (4.30-5.90); RDW 16.6 % (11.5-15.5); WBC 12.8 k/uL (3.8-10.6)
[2017-05-09] MEDS: DEXTROSE 5% IN WATER 1,000 ML IV SCH ×3 (06:37→21:58)
[2017-05-09] MEDS: ENOXAPARIN 40 MG/0.4 ML SYRINGE SQ SCH (06:38)
[2017-05-09] MEDS: FAMOTIDINE 20 MG TAB PO SCH (06:38)
[2017-05-09 06:48] LABS: ALT 35 U/L (21-72); AST 31 U/L (17-59); Alkaline Phosphatase 110 U/L (38-126); Anion Gap 9 mmol/L; Blood Urea Nitrogen 23 mg/dL (9-20); Calcium 7.8 mg/dL (8.4-10.2); Carbon Dioxide 22 mmol/L (22-30); Chloride 117 mmol/L (98-107); Glucose 87 mg/dL (74-99); Non-African American GFR(MDRD) 53 (>60 ml/min/1.73 sqM); Potassium 3.4 mmol/L (3.5-5.1); Sodium 148 mmol/L (137-145); Total Bilirubin 0.6 mg/dL (0.2-1.3); Total Protein 4.5 g/dL (6.3-8.2)
--- NOTE | 2017-05-09 08:37 | P.PN ---
Subjective Principal diagnosis: Altered mental status. This is a continue progress note an 82-year-old white male centimeter for acute renal failure and hyperkalemia. However, he is somewhat had a chris course and had significant decrease in mentation for the last several days. However, he has woken up well and is more lucid. Still some slurred speech but able to follow commands and seems to be fending for himself much more. No new complaints no pain stated. Objective - Vital Signs Vital signs: Vital Signs Temp 97.9 F 05/09/17 04:00 Pulse 76 05/09/17 04:00 Resp 18 05/09/17 04:00 BP 122/67 05/09/17 04:00 Pulse Ox 92 L 05/09/17 04:00 Intake & Output 05/08/17 05/09/17 05/09/17 18:59 06:59 18:59 Intake Total 700 Output Total 1100 Balance -400 Weight 65.5 kg 68.5 kg Intake: Intake, IV Titration 700 Amount Dextrose 5% in Water 1, 650 000 ml @ 75 mls/hr IV . [id number] [facility] Rx#:[id number] Piperacillin-Tazobactam 3 50 .375 gm In Dextrose/Water 1 50ml.bag @ 12.5 mls/hr IVPB Q8HR [facility] Rx#: [id number] Output: Urine 1100 Other: Voiding Method Indwelling Catheter Indwelling Catheter - Constitutional General appearance: Present: average body habitus - EENT Eyes: Absent: abnormal pupil - Respiratory Respiratory: bilateral: CTA - Cardiovascular Rhythm: irregularly irregular Heart sounds: normal: S1, S2 - Gastrointestinal General gastrointestinal: Present: soft. Absent: tenderness - Labs CBC & Chem 7: 05/09/17 06:04 05/09/17 06:04 Labs: Abnormal Lab Results - Last 24 Hours (Table) 05/09/17 05/09/17 Range/Units 06:04 06:04 WBC 12.8 H (3.8-10.6) k/uL RBC 3.59 L (4.30-5.90) m/uL Hgb 11.0 L (13.0-17.5) gm/dL Hct 37.2 L (39.0-53.0) % MCV 103.5 H (80.0-100.0) fL MCHC 29.7 L (31.0-37.0) g/dL RDW 16.6 H (11.5-15.5) % Sodium 148 H (137-145) mmol/L Potassium 3.4 L (3.5-5.1) mmol/L Chloride 117 H (98-107) mmol/L BUN 23 H (9-20) mg/dL Creatinine 1.30 H (0.66-1.25) mg/dL Calcium 7.8 L (8.4-10.2) mg/dL Total Protein 4.5 L (6.3-8.2) g/dL Albumin 2.0 L (3.5-5.0) g/dL Microbiology - Last 24 Hours (Table) 05/04/17 23:29 Blood Culture - Preliminary Blood No Growth after 96 hours 05/03/17 17:57 Blood Culture - Preliminary Blood No Growth after 120 hours Assessment and Plan (1) Acute renal failure Status: Acute (2) Gram-negative sepsis with organ dysfunction Status: Acute (3) CVA (cerebral vascular accident) Status: Acute Plan: Continue current regimen or treatment. Appreciate consultants input. Hopefully we can discharge in a.m. Time with Patient: Less than 30
[2017-05-09] MEDS: PANTOPRAZOLE 40 MG/10 ML VIAL IVP SCH (09:24)
[2017-05-09] MEDS: METOPROLOL TARTRATE 50 MG TAB PO SCH ×2 (09:24→21:56)
[2017-05-09] MEDS: CLOTRIMAZOLE/BETAMETH 1-0.05% CREAM 45 GM TUBE TOPICAL SCH ×2 (09:24→21:56)
[2017-05-09] MEDS: BACITRACIN/POLYMYX 500-10,000 UNIT/GM OPHTH OINT 3.5 GM TUBE BOTH EYES SCH ×4 (09:24→21:56)
[2017-05-09] MEDS: CLOPIDOGREL 75 MG TAB PO SCH (09:24)
[2017-05-09] MEDS: AMMONIUM LACTATE 12% LOTION 225 GM BTL TOPICAL SCH ×2 (09:24→21:57)
--- NOTE | 2017-05-09 10:49 | CT ---
EXAMINATION TYPE: CT brain wo con DATE OF EXAM: 05/09/2017 COMPARISON: 04/05/2017 HISTORY: Altered mental status CT DLP: 1029.9 mGycm. Automated Exposure Control for Dose Reduction was Utilized. TECHNIQUE: CT scan of the head is performed without contrast. FINDINGS: There is no acute intracranial hemorrhage, mass effect, or midline shift identified. The globes are intact and the visualized sinuses are clear. Ocular lenses are surgically absent. Old lacunar injury is seen of the right lentiform nucleus. Encephalomalacia is seen in the right superior cerebellar hem isphere in the distribution of the superior cerebellar artery with associated volume loss of the cere bellar folia. Exvacuodilatation of the fourth ventricle is noted. Atherosclerosis is seen of the intr acranial vasculature. There is diffuse ventricular and sulcal prominence consistent with diffuse age-related cerebral atrop hy. Brain volume is unchanged in comparison to the prior exam with no evidence of transependymal pedro ma to suggest hydrocephalus. There are confluent areas of low-attenuation in the periventricular whit e matter consistent with chronic small vessel ischemic change. IMPRESSION: No acute intracranial hemorrhage or midline shift. There is diffuse age-related cerebra l atrophy and chronic small vessel ischemic change noted. IMPRESSION: 1. No acute intracranial hemorrhage, mass effect, or midline shift is seen. 2. 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 2. Old lacunar injury of the right lentiform nucleus. 3. Generalized proportional volume loss without evidence of transependymal edema to indicate hydrocep halus. Volume loss is similar to the prior studies. 4. Confluent areas of hypoattenuation within the subcortical and periventricular white matter most co mpatible with chronic microangiopathy.
[2017-05-09] MEDS ORDERED: POTASSIUM CHLORIDE ER 20 MEQ TAB.ER PO STA (11:02)
--- NOTE | 2017-05-09 11:05 | XR ---
EXAMINATION TYPE: XR chest 2V DATE OF EXAM: 05/09/2017 COMPARISON: 05/08/2017 HISTORY: Shortness of breath TECHNIQUE: Frontal and lateral views of the chest are obtained. FINDINGS: There is persistent linear right basilar subsegmental atelectasis and subsequent volume lo ss of the right hemithorax with elevation of the right hemidiaphragm. Lateral image is suboptimal, ho wever there is no gross evidence of pleural effusion. No focal consolidation is appreciated. Cardiome diastinal silhouette is mildly enlarged and stable. IMPRESSION: Right basilar atelectasis, unchanged from the prior, with resultant right hemithorax vol ume loss.
--- NOTE | 2017-05-09 11:36 | P.PN ---
Subjective 05/08/17- This is an 82-year-old male patient who came into the emergency department on 05/02/2017 from an extended care facility. Patient was noted to have a potassium of 6.4 at the extended care facility and therefore they sent him over. The patient did not have any further complaints and he has intermittent confusion which is his baseline. EKG performed in the emergency room did show sinus rhythm with occasional PVCs, patient had no ST segment elevation or depression or T-wave abnormalities. The patient was put on lactulose. Hypertension is also being worked up for possible rectal mass and will undergo colonoscopy when stable with Dr. Piña. All labs and reports have been reviewed. Patient is being seen and examined today on the sixth floor for pulmonary services related to progression of shortness of breath over the last few days. He has had a cough however denies any congestion. Nursing staff has denied any sputum production. He is alert and oriented 1 with intermittent confusion. Has been afebrile. Currently is on 3 L of supplemental oxygen via nasal cannula. It is unclear if the patient utilized oxygen in the extended care facility setting. Patient is also on a mechanical soft diet with aspiration precautions. 05/09/17- this patient is being evaluated and examined and seen on rounds today. All labs and reports were reviewed. The patient hyperkalemia has improved. The white blood cell count has come down to 12.8. Patient was noted to have increased lethargy and decreased cognition yesterday afternoon therefore a neurology consult was initiated. Patient is going for a CT of the brain as well as an EEG today. Patient's speech is noted to be slightly slurred and mumbled. Overnight he was noted to refuse care, had increase in agitation, and was refusing food and fluids. and primary care were updated. Objective - Vital Signs Vital signs: Vital Signs Temp 97.8 F 05/09/17 09:38 Pulse 136 H 05/09/17 09:38 Resp 18 05/09/17 09:38 BP 133/86 05/09/17 09:38 Pulse Ox 95 05/09/17 09:38 Intake & Output 05/08/17 05/09/17 05/09/17 18:59 06:59 18:59 Intake Total 700 100 Output Total 1100 Balance -400 100 Weight 65.5 kg 68.5 kg Intake: Intake, IV Titration 700 Amount Dextrose 5% in Water 1, 650 000 ml @ 75 mls/hr IV . [id number] [facility] Rx#:[id number] Piperacillin-Tazobactam 3 50 .375 gm In Dextrose/Water 1 50ml.bag @ 12.5 mls/hr IVPB Q8HR [facility] Rx#: [id number] Oral 100 Output: Urine 1100 Other: Voiding Method Indwelling Catheter Indwelling Catheter Indwelling Catheter - Exam GENERAL EXAM: Alert, intermittent confusion noted which is baseline, comfortable in no apparent distress. HEAD: Normocephalic. EYES: Normal reaction of pupils, equal size. NOSE: Clear with pink turbinates. THROAT: No erythema or exudates. NECK: No masses, no JVD. CHEST: No chest wall deformity. LUNGS: Equal air entry with no crackles, wheeze, rhonchi or dullness. Breath sounds decreased bilaterally. CVS: S1 and S2 normal with no audible mumurs, regular rhythm. ABDOMEN: No hepatosplenomegaly, normal bowel sounds, no guarding or rigidity. EXTREMITIES: No edema noted, pedal pulses palpable. SKIN: No rashes CENTRAL NERVOUS SYSTEM: No focal deficits, moves all 4 extremities. - Labs CBC & Chem 7: 05/09/17 06:04 05/09/17 06:04 Labs: Abnormal Lab Results - Last 24 Hours (Table) 05/09/17 05/09/17 Range/Units 06:04 06:04 WBC 12.8 H (3.8-10.6) k/uL RBC 3.59 L (4.30-5.90) m/uL Hgb 11.0 L (13.0-17.5) gm/dL Hct 37.2 L (39.0-53.0) % MCV 103.5 H (80.0-100.0) fL MCHC 29.7 L (31.0-37.0) g/dL RDW 16.6 H (11.5-15.5) % Sodium 148 H (137-145) mmol/L Potassium 3.4 L (3.5-5.1) mmol/L Chloride 117 H (98-107) mmol/L BUN 23 H (9-20) mg/dL Creatinine 1.30 H (0.66-1.25) mg/dL Calcium 7.8 L (8.4-10.2) mg/dL Total Protein 4.5 L (6.3-8.2) g/dL Albumin 2.0 L (3.5-5.0) g/dL Microbiology - Last 24 Hours (Table) 05/04/17 23:29 Blood Culture - Preliminary Blood No Growth after 96 hours 05/03/17 17:57 Blood Culture - Preliminary Blood No Growth after 120 hours Assessment and Plan Plan: Assessment Sepsis with fever, gram-negative Acute hypoxic respiratory failure Hyperkalemia, improved Acute renal failure Urinary tract infection, culture positive for gram negatives bacilli and E. coli Hypernatremia likely related to decreased oral intake Probable rectal mass, currently being worked up Diarrhea History of CVA Plan Currently awaiting CT of the brain and EEG results. Medications have been reviewed and will be continued as ordered. Patient's prognosis is guarded. Patient known to be resistive to care and medical treatment. Continue to monitor electrolytes. Patient will undergo colonoscopy once cleared. Continue with pulmonary hygiene, coughing and deep breathing exercises, and supportive care. Supplemental oxygen to maintain oxygen saturations of 92% or better. We will add nebulizer treatments in the form of DuoNeb and budesonide. Obtain chest x-ray in the morning. GI and DVT prophylaxis. Appreciate consults recommendations. We will continue to monitor labs/results and adjust treatment as necessary. Further recommendations pending. I performed an examination of the patient and discussed their management with the nurse practitioner. I have reviewed the nurse practitioner's note and agree with the documented findings and plan of care.
[2017-05-09] MEDS: BUDESONIDE 0.5 MG/2 ML NEBU INHALATION SCH ×2 (11:43→19:58)
[2017-05-09] MEDS: IPRATROPIUM-ALBUTEROL 3 ML NEB INHALATION SCH ×3 (11:43→19:58)
--- NOTE | 2017-05-09 12:07 | P.PN ---
Subjective Principal diagnosis: Acute renal failure This is an 82-year-old gentleman with history of prior CVA, hypertension, GERD, degenerative joint disease, who currently resides in an extended care facility. Patient apparently had several lab tests drawn and was found to be in acute renal failure for this reason he was recommended to come to the hospital for admission. According to the patient, he had been feeling his usual self, it is hard to get answers to every question. Patient was afebrile here on admission for the first couple of days, then was noted to develop a fever of 100.6, he became tachycardic and was hypotensive. This morning his heart rate is noted to be in the 100s, sinus tachycardia, mucous membranes appear quite dry. Blood pressure this morning 142/90, cardiology consultation was requested because of the tachycardia. White blood cell count on admission 17.3, 14.7 this morning. Hemoglobin 11.0. Potassium on admission 6.4, 3.7 this morning. BUN on admission 76, creatinine 4.1, BUN this morning 36 , creatinine 1.6. Troponin 0.039. Positive UTI. He is currently receiving antibiotics for possible UTI, patient states he has been having loose stools prior to coming here as well. He denies any chest discomfort, breathing has been stable overall. 05/09/2017 Patient seen and examined this morning, appears more confused than usual, neurology consult patient was requested. Heart rate today is in the 90s, he did have his dose of beta rashad increased yesterday. Potassium today 3.4, creatinine 1.3. Objective - Vital Signs Vital signs: Vital Signs Temp 97.5 F L 05/09/17 11:59 Pulse 136 H 05/09/17 11:59 Resp 18 05/09/17 11:59 BP 124/82 05/09/17 11:59 Pulse Ox 95 05/09/17 11:59 Intake & Output 05/08/17 05/09/17 05/09/17 18:59 06:59 18:59 Intake Total 700 100 Output Total 1100 Balance -400 100 Weight 65.5 kg 68.5 kg Intake: Intake, IV Titration 700 Amount Dextrose 5% in Water 1, 650 000 ml @ 75 mls/hr IV . [id number] [facility] Rx#:[id number] Piperacillin-Tazobactam 3 50 .375 gm In Dextrose/Water 1 50ml.bag @ 12.5 mls/hr IVPB Q8HR [facility] Rx#: [id number] Oral 100 Output: Urine 1100 Other: Voiding Method Indwelling Catheter Indwelling Catheter Indwelling Catheter - Exam PHYSICAL EXAMINATION: HEENT: Head is atraumatic, normocephalic. Pupils equal, round. Neck is supple. There is no elevated jugular venous pressure. HEART EXAMINATION: Heart S1 and S2 tachycardic systolic murmur is heard CHEST EXAMINATION: Lungs reveal fine crackles to bilateral bases. ABDOMEN: Soft, nontender. Bowel sounds are heard. No organomegaly noted. EXTREMITIES: 1+ peripheral pulses with no evidence of peripheral edema and no calf tenderness noted. NEUROLOGIC patient is awake, alert and oriented -1. - Labs CBC & Chem 7: 05/09/17 06:04 05/09/17 06:04 Labs: Abnormal Lab Results - Last 24 Hours (Table) 05/09/17 05/09/17 Range/Units 06:04 06:04 WBC 12.8 H (3.8-10.6) k/uL RBC 3.59 L (4.30-5.90) m/uL Hgb 11.0 L (13.0-17.5) gm/dL Hct 37.2 L (39.0-53.0) % MCV 103.5 H (80.0-100.0) fL MCHC 29.7 L (31.0-37.0) g/dL RDW 16.6 H (11.5-15.5) % Sodium 148 H (137-145) mmol/L Potassium 3.4 L (3.5-5.1) mmol/L Chloride 117 H (98-107) mmol/L BUN 23 H (9-20) mg/dL Creatinine 1.30 H (0.66-1.25) mg/dL Calcium 7.8 L (8.4-10.2) mg/dL Total Protein 4.5 L (6.3-8.2) g/dL Albumin 2.0 L (3.5-5.0) g/dL Microbiology - Last 24 Hours (Table) 05/04/17 23:29 Blood Culture - Preliminary Blood No Growth after 96 hours 05/03/17 17:57 Blood Culture - Preliminary Blood No Growth after 120 hours Assessment and Plan Plan: Assessment and plan #1 acute renal failure #2 gram-negative sepsis with associated fever #3 sinus tachycardia likely secondary to sepsis and fever as well as dehydration. #4 hyperkalemia #5 history of CVA #6 hypertension #7 diarrhea rule out C. diff Plan From cardiology's perspective, we'll continue current dose beta rashad. We'll follow this patient with you now on an as-needed basis only, please don't hesitate to call with any questions. DNP note has been reviewed, I agree with a documented findings and plan of care. Patient was seen and examined.
[2017-05-09] MEDS: PIPERACILLIN-TAZOBACTAM 3.375 GM in DEXTROSE/WATER 1 50ML.BAG IVPB SCH ×2 (12:45→18:19)
[2017-05-09] MEDS: ACETAMINOPHEN TAB 325 MG TAB PO PRN (16:35)
[2017-05-09] MEDS ORDERED: LORATADINE 10 MG TAB PO STA (17:00)
[2017-05-09] MEDS ORDERED: FAMOTIDINE 20 MG/2 ML VIAL IV ONE (17:15)
[2017-05-09] MEDS ORDERED: FAMOTIDINE 20 MG/2 ML VIAL IV SCH (17:15)
[2017-05-09] MEDS: SENNOSIDES-DOCUSATE SODIUM 1 EACH TAB PO SCH (21:56)
--- NOTE | 2017-05-09 22:38 | P.PN ---
Subjective Principal diagnosis: sepsis 82-year-old male [facility] was found evidence of multiple abnormal labs included acute renal failure and hyperkalemia. The patient was transferred from the [facility] care [facility] for further intervention. Infectious diseases consultation was requested when the patient developed a high-grade fever reportedly over 104. the consult was initiated as the patient became febrile, hypotensive and tachycardic. The patient is a poor historian. The patient today is a bit more comfortable than reported last evening. He relates that he has minimal hunger. His mouth is dry. As related lactic acid was drawn which was elevated and had evidence of leukocytosis, the patient was given fluids and antibiotic therapy with Zosyn given the concerns to urinary system as well as potential abdominal source since he was having some diarrhea. As the patient is slightly more comfortable. Has been seen by surgery and is being monitored for a potential colonoscopy in the future. Concerns to colonic abscess. No complaints. Objective - Vital Signs Vital signs: Vital Signs Temp 101.7 F H 05/09/17 16:00 Pulse 108 H 05/09/17 20:22 Resp 18 05/09/17 16:00 BP 143/80 05/09/17 16:00 Pulse Ox 92 L 05/09/17 16:00 Intake & Output 05/09/17 05/09/17 05/10/17 06:59 18:59 06:59 Intake Total 700 110 Output Total 1100 400 Balance -400 -290 Weight 68.5 kg 68.5 kg Intake: Intake, IV Titration 700 Amount Dextrose 5% in Water 1, 650 000 ml @ 75 mls/hr IV . [id number] [facility] Rx#:[id number] Piperacillin-Tazobactam 3 50 .375 gm In Dextrose/Water 1 50ml.bag @ 12.5 mls/hr IVPB Q8HR [facility] Rx#: [id number] Oral 110 Output: Urine 1100 400 Uretheral (Gran[place]) 200 Other: Voiding Method Indwelling Catheter Indwelling Catheter - Exam 82-year-old male poor historian HEENT: Anicteric conjunctiva are pink and mildly crusty nasal mucosa grossly intact without significant lesions, there is no thrush but the oral cavity is very dry Neck: The neck is supple without significant lymphadenopathy or thyromegaly. Lungs: There is symmetrical air entry. Scattered expiratory wheezes are noted. Heart: Irregular with soft S4 no distinct murmur click or rub Abdomen: Positive bowel sounds soft and nontender without palpable masses or organomegaly. There was no guarding or rebound. Extremities: The extremities have some minimal trace edema but no significant lesions are seen in the upper extremities. The lower extremities have evidence of the extensive skin lesion the bilateral lower extremities. There is a healing left hip incision which is without erythema crepitance or fluctuance. Neuro: Arousable, speech content is poor and inconsistent can poorly understandable he however does move arms and legs spontaneously - Labs CBC & Chem 7: 05/09/17 06:04 05/09/17 06:04 Labs: Abnormal Lab Results - Last 24 Hours (Table) 05/09/17 05/09/17 Range/Units 06:04 06:04 WBC 12.8 H (3.8-10.6) k/uL RBC 3.59 L (4.30-5.90) m/uL Hgb 11.0 L (13.0-17.5) gm/dL Hct 37.2 L (39.0-53.0) % MCV 103.5 H (80.0-100.0) fL MCHC 29.7 L (31.0-37.0) g/dL RDW 16.6 H (11.5-15.5) % Sodium 148 H (137-145) mmol/L Potassium 3.4 L (3.5-5.1) mmol/L Chloride 117 H (98-107) mmol/L BUN 23 H (9-20) mg/dL Creatinine 1.30 H (0.66-1.25) mg/dL Calcium 7.8 L (8.4-10.2) mg/dL Total Protein 4.5 L (6.3-8.2) g/dL Albumin 2.0 L (3.5-5.0) g/dL Microbiology - Last 24 Hours (Table) 05/03/17 17:57 Blood Culture - Final Blood No Growth after 144 hours 05/04/17 23:29 Blood Culture - Preliminary Blood No Growth after 96 hours Laboratory Results WBC 12.8 k/uL (3.8-10.6) H 05/09/17 06:04 RBC 3.59 m/uL (4.30-5.90) L 05/09/17 06:04 Hgb 11.0 gm/dL (13.0-17.5) L 05/09/17 06:04 Hct 37.2 % (39.0-53.0) L 05/09/17 06:04 MCV 103.5 fL (80.0-100.0) H 05/09/17 06:04 MCH 30.7 pg (25.0-35.0) 05/09/17 06:04 MCHC 29.7 g/dL (31.0-37.0) L 05/09/17 06:04 RDW 16.6 % (11.5-15.5) H 05/09/17 06:04 Plt Count 344 k/uL (150-450) 05/09/17 06:04 Neutrophils % 93 % 05/04/17 23:29 Lymphocytes % 3 % 05/04/17 23:29 Monocytes % 3 % 05/04/17 23:29 Eosinophils % 0 % 05/04/17 23:29 Basophils % 0 % 05/04/17 23:29 Neutrophils # 13.6 k/uL (1.3-7.7) H 05/04/17 23:29 Lymphocytes # 0.4 k/uL (1.0-4.8) L 05/04/17 23:29 Monocytes # 0.5 k/uL (0-1.0) 05/04/17 23:29 Eosinophils # 0.1 k/uL (0-0.7) 05/04/17 23:29 Basophils # 0.0 k/uL (0-0.2) 05/04/17 23:29 Hypochromasia Marked 05/09/17 06:04 Anisocytosis Slight 05/09/17 06:04 Macrocytosis Moderate 05/09/17 06:04 Sodium 148 mmol/L (137-145) H 05/09/17 06:04 Potassium 3.4 mmol/L (3.5-5.1) L 05/09/17 06:04 Chloride 117 mmol/L (98-107) H 05/09/17 06:04 Carbon Dioxide 22 mmol/L (22-30) 05/09/17 06:04 Anion Gap 9 mmol/L 05/09/17 06:04 BUN 23 mg/dL (9-20) H 05/09/17 06:04 Creatinine 1.30 mg/dL (0.66-1.25) H 05/09/17 06:04 Est GFR (MDRD) Af Amer >60 (>60 ml/min/1.73 sqM) 05/09/17 06:04 Est GFR (MDRD) Non-Af 53 (>60 ml/min/1.73 sqM) 05/09/17 06:04 Glucose 87 mg/dL (74-99) 05/09/17 06:04 POC Glucose (mg/dL) 98 mg/dL (75-99) 05/04/17 22:36 POC Glu Sheet Music Salesperson ID Darryl Fink 05/04/17 22:36 Lactic Ac Sepsis Rflx Y 05/05/17 00:06 Plasma Lactic Acid Froy 1.3 mmol/L (0.7-2.0) 05/05/17 03:21 Calcium 7.8 mg/dL (8.4-10.2) L 05/09/17 06:04 Magnesium 1.9 mg/dL (1.6-2.3) 05/08/17 05:45 Total Bilirubin 0.6 mg/dL (0.2-1.3) 05/09/17 06:04 AST 31 U/L (17-59) 05/09/17 06:04 ALT 35 U/L (21-72) 05/09/17 06:04 Alkaline Phosphatase 110 U/L (38-126) 05/09/17 06:04 Total Creatine Kinase 125 U/L (55-170) 05/02/17 17:46 CK-MB (CK-2) 3.7 ng/mL (0.0-2.4) H* 05/02/17 17:46 CK-MB (CK-2) Rel Index 3.0 05/02/17 17:46 Troponin I 0.029 ng/mL (0.000-0.034) 05/02/17 17:46 Total Protein 4.5 g/dL (6.3-8.2) L 05/09/17 06:04 Albumin 2.0 g/dL (3.5-5.0) L 05/09/17 06:04 Urine Color Yellow 05/02/17 19:18 Urine Appearance Cloudy (Clear) 05/02/17 19:18 Urine pH 6.0 (5.0-8.0) 05/02/17 19:18 Ur Specific [place] 1.011 (1.001-1.035) 05/02/17 19:18 Urine Protein 1+ (Negative) H 05/02/17 19:18 Urine Glucose (UA) Negative (Negative) 05/02/17 19:18 Urine Ketones Negative (Negative) 05/02/17 19:18 Urine Blood Moderate (Negative) H 05/02/17 19:18 Urine Nitrite Negative (Negative) 05/02/17 19:18 Urine Bilirubin Negative (Negative) 05/02/17 19:18 Urine Urobilinogen 3.0 mg/dL (<2.0) 05/02/17 19:18 Ur Leukocyte Esterase Large (Negative) H 05/02/17 19:18 Urine RBC 71 /hpf (0-5) H 05/02/17 19:18 Urine WBC 155 /hpf (0-5) H 05/02/17 19:18 Urine WBC Clumps Few /hpf (None) H 05/02/17 19:18 Urine Bacteria Few /hpf (None) H 05/02/17 19:18 Urine Mucus Rare /hpf (None) H 05/02/17 19:18 C. difficile (EIA) Intrp Negative (Negative) 05/03/17 15:54 Microbiology 05/03/17 17:57 Blood Blood Culture - Final No Growth after 144 hours 05/04/17 23:29 Blood Blood Culture - Preliminary No Growth after 96 hours 05/03/17 03:00 Urine,Catheterized Urine Culture - Final Escherichia coli Assessment and Plan (1) Gram-negative sepsis with organ dysfunction Narrative/Plan: 82-year-old male transferred from extended care facility for alteration of his status. We'll request performed there was evidence of leukocytosis, acute renal failure, hyperkalemia. With this he was transferred to Hospital and is now received intervention and has been seen by nephrology. Because of his illness computed tomography scan of the abdomen and pelvis was performed showing evidence of the significant cecal dilatation and concerns to infection and abscess at that site. The patient has been seen by surgery and will plan colonoscopy when he is medically cleared. At the time of the consult fluid bolus was given since his computed tomography scan did not show evidence of heart failure. Antipyretics were given. The patient defervesced and his significant tachycardia and hypotension resolved. The patient has remained on selective care. His CODE STATUS is full, and apparently this has been addressed with the family and they do not yet understand the current ramifications of his illness. Ongoing discussion shall be held for more appropriate CODE STATUS. He has had a significant leukocytosis which is improved today. There is evidence of urine culture with E. coli. His fever has improved a bit. Antibiotic therapy with Zosyn was initiated with concerns to the abdominal sepsis. We will also give coverage for his urinary tract infection based on prior cultures. He does have some crustiness to his eyes and Polysporin is given with improvement. His legs are wrapped and this will continue with the local care. His prognosis is poor. Status: Acute (2) Acute renal failure Status: Acute (3) Hyperkalemia Status: Acute (4) UTI (urinary tract infection) Status: Acute
[2017-05-10] MEDS: PIPERACILLIN-TAZOBACTAM 3.375 GM in DEXTROSE/WATER 1 50ML.BAG IVPB SCH ×3 (02:11→18:49)
--- NOTE | 2017-05-10 06:09 | EEG ---
DATE OF SERVICE: 05/09/2017 ELECTROENCEPHALOGRAPHIC EXAMINATION REPORT INDICATION FOR EXAMINATION: This patient is an 82-year-old male being evaluated for altered mental status and confusion. Patient with history of TIA in the past. Age: 82. EEG FINDINGS: A routine 21 channel awake, digital EEG recording was accomplished utilizing the 10-20 international system with bipolar and referential montages. The background activity in the most alert, resting state consists of a low to medium amplitude, fairly well developed and well sustained 7 Hz activity over the posterior head regions. This posterior rhythm attenuates to eye opening. There is a small amount of low amplitude 18-20 Hz beta activity seen maximally over the anterior head regions. Muscle and movement artifact was observed on several occasions throughout the tracing. Hyperventilation was not performed. Photic stimulation at flash frequencies of 2 -30 Hz produced a good symmetrical occipital driving response. No epileptiform discharges were seen. IMPRESSION: This EEG is within normal limits for the patient's age. The EEG failed to reveal any focal, lateralized or epileptiform abnormalities. Clinical correlation is recommended. KEND
[2017-05-10 06:10] LABS: Anion Gap 10 mmol/L; Blood Urea Nitrogen 21 mg/dL (9-20); Calcium 7.9 mg/dL (8.4-10.2); Carbon Dioxide 21 mmol/L (22-30); Chloride 112 mmol/L (98-107); Glucose 77 mg/dL (74-99); Magnesium 1.7 mg/dL (1.6-2.3); Non-African American GFR(MDRD) 58 (>60 ml/min/1.73 sqM); Sodium 143 mmol/L (137-145)
[2017-05-10] MEDS: ENOXAPARIN 40 MG/0.4 ML SYRINGE SQ SCH (06:53)
[2017-05-10] MEDS: HYDROcodone/APAP 10-325MG 1 EACH TAB PO PRN (07:51)
[2017-05-10] MEDS: DIAZEPAM 5 MG TAB PO PRN (07:51)
[2017-05-10] MEDS: CLOPIDOGREL 75 MG TAB PO SCH (07:52)
[2017-05-10] MEDS: AMMONIUM LACTATE 12% LOTION 225 GM BTL TOPICAL SCH ×2 (07:52→23:25)
[2017-05-10] MEDS: METOPROLOL TARTRATE 50 MG TAB PO SCH ×2 (07:52→23:25)
[2017-05-10] MEDS: BACITRACIN/POLYMYX 500-10,000 UNIT/GM OPHTH OINT 3.5 GM TUBE BOTH EYES SCH ×3 (07:53→21:30)
[2017-05-10] MEDS: CLOTRIMAZOLE/BETAMETH 1-0.05% CREAM 45 GM TUBE TOPICAL SCH ×2 (07:54→23:25)
[2017-05-10] MEDS: BUDESONIDE 0.5 MG/2 ML NEBU INHALATION SCH ×2 (08:14→19:37)
[2017-05-10] MEDS: IPRATROPIUM-ALBUTEROL 3 ML NEB INHALATION SCH ×3 (08:14→19:37)
--- NOTE | 2017-05-10 08:30 | P.PN ---
Subjective Principal diagnosis: Altered mental status. This continue progress note an 82-year-old white male essentially admitted for acute renal failure and left leg disturbance found have right lower lobe pneumonia. This morning he seems to be considerably weaker. Rashes develop on the left torso and axillary area. I suspect ALLERGY reaction versus fungus. He is now on Lotrisone. Had a long discussion with the family/ who states she will be up on the floor later today. I will go ahead and transfer him to general medical floor with telemetry. Objective - Vital Signs Vital signs: Vital Signs Temp 97.3 F L 05/10/17 04:00 Pulse 112 H 05/10/17 08:14 Resp 18 05/10/17 04:00 BP 143/79 05/10/17 04:00 Pulse Ox 96 05/10/17 04:00 Intake & Output 05/09/17 05/10/17 05/10/17 18:59 06:59 18:59 Intake Total 110 750 Output Total 400 Balance -290 750 Weight 68.5 kg 66.5 kg Intake: Intake, IV Titration 750 Amount Dextrose 5% in Water 1, 750 000 ml @ 75 mls/hr IV . [id number] [facility] Rx#:[id number] Oral 110 Output: Urine 400 Uretheral (Granados) 200 Other: Voiding Method Indwelling Catheter Diaper Incontinent # Voids 1 # Bowel Movements 1 - Constitutional General appearance: Present: average body habitus - EENT Eyes: Absent: abnormal pupil - Respiratory Respiratory: right: diminished, left: CTA - Cardiovascular Heart sounds: normal: S1, S2 - Gastrointestinal General gastrointestinal: Present: soft. Absent: tenderness - Integumentary Integumentary: Present: rash - Labs CBC & Chem 7: 05/09/17 06:04 05/10/17 05:34 Labs: Abnormal Lab Results - Last 24 Hours (Table) 05/10/17 Range/Units 05:34 Chloride 112 H (98-107) mmol/L Carbon Dioxide 21 L (22-30) mmol/L BUN 21 H (9-20) mg/dL Calcium 7.9 L (8.4-10.2) mg/dL Microbiology - Last 24 Hours (Table) 05/04/17 23:29 Blood Culture - Preliminary Blood No Growth after 120 hours 05/03/17 17:57 Blood Culture - Final Blood No Growth after 144 hours Assessment and Plan (1) Acute renal failure Status: Acute (2) Gram-negative sepsis with organ dysfunction Status: Acute (3) CVA (cerebral vascular accident) Status: Acute Plan: The patient is here essentially for pneumonia and renal failure which is now resolving. New. Significant weakness is noted. Appreciate multiple consultants. Check CBC and CP in a.m. per Prognosis is guarded secondary to his comorbidities. We'll continue to follow. We will keep for the weekend. Dr. Hunt's group will be covering. Time with Patient: Less than 30
--- NOTE | 2017-05-10 10:51 | P.PN ---
Subjective Patient is seen in follow-up for acute kidney injury. His potassium was 6.4 on admission. Renal function is gradually improving with creatinine down to 1.2 today. Hyperkalemia has resolved. Baseline creatinine is 1. Patient's currently resting in bed. He is not a very reliable historian. He is maintained on D5W. He has a Granados catheter in place. He is nonoliguric. Oral intake remains poor. He is currently being treated for pneumonia as well as E. coli UTI. Vital signs are stable. General: The patient appeared well nourished and normally developed. HEENT: Head exam is unremarkable. Neck is without jugular venous distension. LUNGS: Lungs are clear to auscultation and percussion. Breath sounds decreased. HEART: Rate and Rhythm are regular. First and second heart sounds normal. No murmurs, rubs or gallops. ABDOMEN: Abdominal exam reveals normal bowel sounds. Non-tender and non- distended. No evidence of peritonitis. EXTREMITITES: No clubbing, cyanosis, or edema. Objective - Vital Signs Vital signs: Vital Signs Temp 99.6 F 05/10/17 08:00 Pulse 112 H 05/10/17 08:32 Resp 17 05/10/17 08:00 BP 141/86 05/10/17 08:00 Pulse Ox 95 05/10/17 08:00 Intake & Output 05/09/17 05/10/17 05/10/17 18:59 06:59 18:59 Intake Total 110 750 0 Output Total 400 Balance -290 750 0 Weight 68.5 kg 66.5 kg Intake: Intake, IV Titration 750 Amount Dextrose 5% in Water 1, 750 000 ml @ 75 mls/hr IV . [id number] [facility] Rx#:[id number] Oral 110 0 Output: Urine 400 Uretheral (Granados) 200 Other: Voiding Method Indwelling Catheter Diaper Diaper Incontinent Incontinent # Voids 1 # Bowel Movements 1 - Labs CBC & Chem 7: 05/09/17 06:04 05/10/17 05:34 Labs: Abnormal Lab Results - Last 24 Hours (Table) 05/10/17 Range/Units 05:34 Chloride 112 H (98-107) mmol/L Carbon Dioxide 21 L (22-30) mmol/L BUN 21 H (9-20) mg/dL Calcium 7.9 L (8.4-10.2) mg/dL Microbiology - Last 24 Hours (Table) 05/04/17 23:29 Blood Culture - Preliminary Blood No Growth after 120 hours 05/03/17 17:57 Blood Culture - Final Blood No Growth after 144 hours Assessment and Plan Plan: Assessment: #1. Nonoliguric acute kidney injury secondary to ischemic ATN due to hemodynamic instability and diuresis. There may have also been a component of urinary retention. Improved with IV hydration. Creatinine was 4.1 on admission and is down to 1.2. #2. Hyperkalemia secondary to acute kidney injury and potassium supplementation. Improved with medical treatment. #3. UTI. Urine culture positive for gram-negative bacilli - E. coli. #4. Hypernatremia secondary to lack of oral water intake. Improving with D5W. #5. Cecal dilation with concern of abscess. Plan: Decreased D5W to be run at 50 mL an hour. Avoid nephrotoxic agents and hypotensive episodes. Continue to hold off on DANIEL inhibitor, diuretics. Continue antibiotics per infectious disease recommendations. Maintain Granados catheter. Repeat electrolytes in the morning.
[2017-05-10] MEDS: DEXTROSE 5% IN WATER 1,000 ML IV SCH (11:25)
[2017-05-10] MEDS: LORATADINE 10 MG TAB PO SCH (11:27)
--- NOTE | 2017-05-10 12:11 | P.PN ---
Subjective 05/08/17- This is an 82-year-old male patient who came into the emergency department on 05/02/2017 from an extended care facility. Patient was noted to have a potassium of 6.4 at the extended care facility and therefore they sent him over. The patient did not have any further complaints and he has intermittent confusion which is his baseline. EKG performed in the emergency room did show sinus rhythm with occasional PVCs, patient had no ST segment elevation or depression or T-wave abnormalities. The patient was put on lactulose. Hypertension is also being worked up for possible rectal mass and will undergo colonoscopy when stable with Dr. Piña. All labs and reports have been reviewed. Patient is being seen and examined today on the sixth floor for pulmonary services related to progression of shortness of breath over the last few days. He has had a cough however denies any congestion. Nursing staff has denied any sputum production. He is alert and oriented 1 with intermittent confusion. Has been afebrile. Currently is on 3 L of supplemental oxygen via nasal cannula. It is unclear if the patient utilized oxygen in the extended care facility setting. Patient is also on a mechanical soft diet with aspiration precautions. 05/09/17- this patient is being evaluated and examined and seen on rounds today. All labs and reports were reviewed. The patient hyperkalemia has improved. The white blood cell count has come down to 12.8. Patient was noted to have increased lethargy and decreased cognition yesterday afternoon therefore a neurology consult was initiated. Patient is going for a CT of the brain as well as an EEG today. Patient's speech is noted to be slightly slurred and mumbled. Overnight he was noted to refuse care, had increase in agitation, and was refusing food and fluids. and primary care were updated. 05/10/17- this patient is being evaluated exam and seen today on the selective care unit. All labs and reports have been reviewed. Patient appears more awake today than previously. Patient did undergo a CT of the brain and EEG yesterday. Neurology and nephrology is on consult. Patient's prognosis is guarded and he has multiple comorbidities. Upon examination the patient's resting up in bed on room air states he occasionally has shortness of breath with exertion. He denies any cough or congestion at this time. Discharge planning is in process and appears the patient will go back to extended care facility when discharged. Objective - Vital Signs Vital signs: Vital Signs Temp 99.6 F 05/10/17 08:00 Pulse 112 H 05/10/17 08:32 Resp 17 05/10/17 08:00 BP 141/86 05/10/17 08:00 Pulse Ox 95 05/10/17 08:00 Intake & Output 05/09/17 05/10/17 05/10/17 18:59 06:59 18:59 Intake Total 110 750 0 Output Total 400 Balance -290 750 0 Weight 68.5 kg 66.5 kg Intake: Intake, IV Titration 750 Amount Dextrose 5% in Water 1, 750 000 ml @ 75 mls/hr IV . [id number] [facility] Rx#:[id number] Oral 110 0 Output: Urine 400 Uretheral (Granados) 200 Other: Voiding Method Indwelling Catheter Diaper Diaper Incontinent Incontinent # Voids 1 # Bowel Movements 1 - Exam GENERAL EXAM: Alert, intermittent confusion noted which is baseline, comfortable in no apparent distress. HEAD: Normocephalic. EYES: Normal reaction of pupils, equal size. NOSE: Clear with pink turbinates. THROAT: No erythema or exudates. NECK: No masses, no JVD. CHEST: No chest wall deformity. LUNGS: Equal air entry with no crackles, wheeze, rhonchi or dullness. Breath sounds decreased bilaterally. CVS: S1 and S2 normal with no audible mumurs, regular rhythm. ABDOMEN: No hepatosplenomegaly, normal bowel sounds, no guarding or rigidity. EXTREMITIES: No edema noted, pedal pulses palpable. SKIN: No rashes CENTRAL NERVOUS SYSTEM: No focal deficits, moves all 4 extremities. - Labs CBC & Chem 7: 05/09/17 06:04 05/10/17 05:34 Labs: Abnormal Lab Results - Last 24 Hours (Table) 05/10/17 Range/Units 05:34 Chloride 112 H (98-107) mmol/L Carbon Dioxide 21 L (22-30) mmol/L BUN 21 H (9-20) mg/dL Calcium 7.9 L (8.4-10.2) mg/dL Microbiology - Last 24 Hours (Table) 05/04/17 23:29 Blood Culture - Preliminary Blood No Growth after 120 hours 05/03/17 17:57 Blood Culture - Final Blood No Growth after 144 hours Assessment and Plan Plan: Assessment Sepsis with fever, gram-negative Acute hypoxic respiratory failure Hyperkalemia, improved Acute renal failure Urinary tract infection, culture positive for gram negatives bacilli and E. coli Hypernatremia likely related to decreased oral intake Probable rectal mass, currently being worked up Diarrhea History of CVA Plan Medications have been reviewed and will be continued as ordered. Patient's prognosis is guarded. Patient known to be resistive to care and medical treatment. Continue to monitor electrolytes. Patient will undergo colonoscopy once cleared, in the outpatient setting. Continue with pulmonary hygiene, coughing and deep breathing exercises, and supportive care. Supplemental oxygen to maintain oxygen saturations of 92% or better. Continue nebulizer treatments in the form of DuoNeb and budesonide. . GI and DVT prophylaxis. Appreciate consults recommendations. We will continue to monitor labs/results and adjust treatment as necessary. Further recommendations pending. I performed an examination of the patient and discussed their management with the nurse practitioner. I have reviewed the nurse practitioner's note and agree with the documented findings and plan of care.
[2017-05-10] MEDS: SENNOSIDES-DOCUSATE SODIUM 1 EACH TAB PO SCH (23:24)
[2017-05-10] MEDS: TETRAHYDROZOLINE 0.05% OPHTH DROPS 15 ML BTL BOTH EYES PRN (23:26)
[2017-05-10] MEDS: LORazepam 2 MG/ML SYRINGE IV PRN (23:31)
[2017-05-11] MEDS: TETRAHYDROZOLINE 0.05% OPHTH DROPS 15 ML BTL BOTH EYES PRN (01:16)
[2017-05-11] MEDS: BACITRACIN/POLYMYX 500-10,000 UNIT/GM OPHTH OINT 3.5 GM TUBE BOTH EYES SCH ×5 (01:18→22:39)
[2017-05-11] MEDS: PIPERACILLIN-TAZOBACTAM 3.375 GM in DEXTROSE/WATER 1 50ML.BAG IVPB SCH ×3 (01:19→17:02)
[2017-05-11] MEDS: DEXTROSE 5% IN WATER 1,000 ML IV SCH ×2 (01:19→17:02)
[2017-05-11] MEDS: ENOXAPARIN 40 MG/0.4 ML SYRINGE SQ SCH (06:15)
[2017-05-11 07:47] LABS: ALT 34 U/L (21-72); AST 26 U/L (17-59); Alkaline Phosphatase 115 U/L (38-126); Anion Gap 6 mmol/L; Blood Urea Nitrogen 19 mg/dL (9-20); Calcium 7.3 mg/dL (8.4-10.2); Carbon Dioxide 24 mmol/L (22-30); Chloride 111 mmol/L (98-107); Glucose 84 mg/dL (74-99); Non-African American GFR(MDRD) >60 (>60 ml/min/1.73 sqM); Potassium 3.7 mmol/L (3.5-5.1); Sodium 141 mmol/L (137-145); Total Bilirubin 0.4 mg/dL (0.2-1.3); Total Protein 4.3 g/dL (6.3-8.2)
[2017-05-11] MEDS: IPRATROPIUM-ALBUTEROL 3 ML NEB INHALATION SCH ×3 (08:04→19:23)
[2017-05-11] MEDS: BUDESONIDE 0.5 MG/2 ML NEBU INHALATION SCH ×2 (08:04→19:23)
[2017-05-11 08:15] LABS: Anisocytosis Slight; CH 31.2; CHCM 31.2; HCT 33.7 % (39.0-53.0); HDW 2.95; HGB 10.5 gm/dL (13.0-17.5); Hypochromasia Slight; MCH 31.3 pg (25.0-35.0); MCHC 31.1 g/dL (31.0-37.0); MCV 100.6 fL (80.0-100.0); Macrocytosis Slight; Mean Platelet Volume 9.8; RBC 3.34 m/uL (4.30-5.90); RDW 16.5 % (11.5-15.5); WBC 13.8 k/uL (3.8-10.6)
[2017-05-11] MEDS: AMMONIUM LACTATE 12% LOTION 225 GM BTL TOPICAL SCH ×2 (08:55→22:30)
[2017-05-11] MEDS: CLOTRIMAZOLE/BETAMETH 1-0.05% CREAM 45 GM TUBE TOPICAL SCH ×2 (08:55→22:30)
[2017-05-11] MEDS: CLOPIDOGREL 75 MG TAB PO SCH (09:27)
[2017-05-11] MEDS: METOPROLOL TARTRATE 50 MG TAB PO SCH ×2 (09:27→22:38)
[2017-05-11] MEDS: LORATADINE 10 MG TAB PO SCH (09:27)
--- NOTE | 2017-05-11 10:50 | P.PN ---
Progress Note - Text The patient is fairly stable. Is being seen for well ileus now improved. He is taking in small amounts of food. No bowel movement today but did have the one in the last day or 2. She is not a good historian but states he did pass some flatus. On examination the patient is a somewhat sleepy. No fever. Vitals are stable. Abdomen is soft with minimal distention no guarding or rebound or significant tenderness. Resolving ileus. Multiple medical issues the renal failure. Recommendation. Continued medical management monitor his oral intake.
--- NOTE | 2017-05-11 10:59 | XR ---
EXAMINATION TYPE: XR chest 2V DATE OF EXAM: 05/11/2017 COMPARISON: 05/09/2017 HISTORY: Short of breath TECHNIQUE: Frontal and lateral views of the chest are obtained. FINDINGS: There is some atelectasis at the right lung base. There is no heart failure. There is some blunting of posterior costophrenic angles. IMPRESSION: There is pleural reaction at the lung bases posteriorly with right basilar atelectasis. No change compared to last exam. No heart failure.
--- NOTE | 2017-05-11 13:52 | P.PN ---
Subjective 05/08/17- This is an 82-year-old male patient who came into the emergency department on 05/02/2017 from an extended care facility. Patient was noted to have a potassium of 6.4 at the extended care facility and therefore they sent him over. The patient did not have any further complaints and he has intermittent confusion which is his baseline. EKG performed in the emergency room did show sinus rhythm with occasional PVCs, patient had no ST segment elevation or depression or T-wave abnormalities. The patient was put on lactulose. Hypertension is also being worked up for possible rectal mass and will undergo colonoscopy when stable with Dr. Piña. All labs and reports have been reviewed. Patient is being seen and examined today on the sixth floor for pulmonary services related to progression of shortness of breath over the last few days. He has had a cough however denies any congestion. Nursing staff has denied any sputum production. He is alert and oriented 1 with intermittent confusion. Has been afebrile. Currently is on 3 L of supplemental oxygen via nasal cannula. It is unclear if the patient utilized oxygen in the extended care facility setting. Patient is also on a mechanical soft diet with aspiration precautions. 05/09/17- this patient is being evaluated and examined and seen on rounds today. All labs and reports were reviewed. The patient hyperkalemia has improved. The white blood cell count has come down to 12.8. Patient was noted to have increased lethargy and decreased cognition yesterday afternoon therefore a neurology consult was initiated. Patient is going for a CT of the brain as well as an EEG today. Patient's speech is noted to be slightly slurred and mumbled. Overnight he was noted to refuse care, had increase in agitation, and was refusing food and fluids. and primary care were updated. 05/10/17- this patient is being evaluated exam and seen today on the selective care unit. All labs and reports have been reviewed. Patient appears more awake today than previously. Patient did undergo a CT of the brain and EEG yesterday. Neurology and nephrology is on consult. Patient's prognosis is guarded and he has multiple comorbidities. Upon examination the patient's resting up in bed on room air states he occasionally has shortness of breath with exertion. He denies any cough or congestion at this time. Discharge planning is in process and appears the patient will go back to extended care facility when discharged. 05/11/17- patient is being seen in evaluated and examined today on the fifth floor. Patient is known to be slightly tired however is easily awoken. Currently he is resting up in bed on room air. Patient noticed to have a faint light red flat erythema rash to his right lateral chest. He denies any itching or pain. The area is small and diffuse. We will continue to monitor this. He does have Lotrisone cream for the area. On examination he denies any shortness of breath cough or congestion. Family at bedside updated on plan of care. Objective - Vital Signs Vital signs: Vital Signs Temp 99.0 F 05/11/17 08:45 Pulse 80 05/11/17 13:39 Resp 18 05/11/17 08:45 BP 146/67 05/11/17 08:45 Pulse Ox 93 L 05/11/17 08:45 Intake & Output 05/10/17 05/11/17 05/11/17 18:59 06:59 18:59 Intake Total 0 450 40 Balance 0 450 40 Weight 69.5 kg 69.5 kg Intake: Intake, IV Titration 450 Amount Dextrose 5% in Water 1, 400 000 ml @ 50 mls/hr IV . Q20H [facility] Rx#:[id number] Piperacillin-Tazobactam 3 50 .375 gm In Dextrose/Water 1 50ml.bag @ 12.5 mls/hr IVPB Q8HR [facility] Rx#: [id number] Oral 0 40 Other: Voiding Method Diaper Diaper Diaper Incontinent Incontinent Incontinent # Voids 1 2 - Exam GENERAL EXAM: Alert, intermittent confusion noted which is baseline, comfortable in no apparent distress. HEAD: Normocephalic. EYES: Normal reaction of pupils, equal size. NOSE: Clear with pink turbinates. THROAT: No erythema or exudates. NECK: No masses, no JVD. CHEST: No chest wall deformity. LUNGS: Equal air entry with no crackles, wheeze, rhonchi or dullness. Breath sounds decreased bilaterally. CVS: S1 and S2 normal with no audible mumurs, regular rhythm. ABDOMEN: No hepatosplenomegaly, normal bowel sounds, no guarding or rigidity. EXTREMITIES: No edema noted, pedal pulses palpable. SKIN: Multiple skin tears, flat erythema diffuse rash to right lateral chest, cream applied CENTRAL NERVOUS SYSTEM: No focal deficits, moves all 4 extremities. - Labs CBC & Chem 7: 05/11/17 06:45 05/11/17 06:45 Labs: Abnormal Lab Results - Last 24 Hours (Table) 05/11/17 05/11/17 Range/Units 06:45 06:45 WBC 13.8 H (3.8-10.6) k/uL RBC 3.34 L (4.30-5.90) m/uL Hgb 10.5 L (13.0-17.5) gm/dL Hct 33.7 L (39.0-53.0) % MCV 100.6 H (80.0-100.0) fL RDW 16.5 H (11.5-15.5) % Chloride 111 H (98-107) mmol/L Calcium 7.3 L (8.4-10.2) mg/dL Total Protein 4.3 L (6.3-8.2) g/dL Albumin 2.0 L (3.5-5.0) g/dL Microbiology - Last 24 Hours (Table) 05/04/17 23:29 Blood Culture - Final Blood No Growth after 144 hours Assessment and Plan Plan: Assessment Sepsis with fever, gram-negative Acute hypoxic respiratory failure Hyperkalemia, improved Acute renal failure Urinary tract infection, culture positive for gram negatives bacilli and E. coli Hypernatremia likely related to decreased oral intake Probable rectal mass, currently being worked up Diarrhea History of CVA Plan Medications have been reviewed and will be continued as ordered. Patient's prognosis is guarded. Patient known to be resistive to care and medical treatment. Continue to monitor electrolytes. Patient will undergo colonoscopy once cleared, in the outpatient setting. Continue with pulmonary hygiene, coughing and deep breathing exercises, and supportive care. Supplemental oxygen to maintain oxygen saturations of 92% or better. Continue nebulizer treatments in the form of DuoNeb and budesonide. . GI and DVT prophylaxis. Appreciate consults recommendations. We will continue to monitor labs/results and adjust treatment as necessary. Further recommendations pending. I performed an examination of the patient and discussed their management with the nurse practitioner. I have reviewed the nurse practitioner's note and agree with the documented findings and plan of care.
[2017-05-11] MEDS: LORazepam 2 MG/ML SYRINGE IV PRN ×2 (21:00→22:39)
[2017-05-11] MEDS: SENNOSIDES-DOCUSATE SODIUM 1 EACH TAB PO SCH (22:38)
--- NOTE | 2017-05-12 00:37 | P.PN ---
Subjective Principal diagnosis: Gram-negative sepsis This continue progress note an 82-year-old white male essentially admitted for acute renal failure and left leg fracture found have right lower lobe pneumonia. Patient also found to have E. coli urinary tract infection. CT of abdomen showed cecal dilation and concern for inflammation for possible abscess as well. General surgery recommends colonoscopy once he is medically stable. This morning he seems to be considerably weaker. Rashes develop on the left torso and axillary area. I suspect ALLERGY reaction versus fungus. He is now on Lotrisone. Patient is currently transferred to medical floor. No fever no chills. Leukocytosis improving. Continued on IV Zosyn. Objective - Vital Signs Vital signs: Vital Signs Temp 98.4 F 05/11/17 15:00 Pulse 88 05/11/17 19:32 Resp 18 05/11/17 16:00 BP 146/66 05/11/17 15:00 Pulse Ox 95 05/11/17 15:00 Intake & Output 05/11/17 05/11/17 05/12/17 06:59 18:59 06:59 Intake Total 450 425 Output Total 200 Balance 450 225 Weight 69.5 kg 69.5 kg Intake: Intake, IV Titration 450 350 Amount Dextrose 5% in Water 1, 400 350 000 ml @ 50 mls/hr IV . Q20H [facility] Rx#:[id number] Piperacillin-Tazobactam 3 50 .375 gm In Dextrose/Water 1 50ml.bag @ 12.5 mls/hr IVPB Q8HR [facility] Rx#: [id number] Oral 75 Output: Urine 200 Other: Voiding Method Diaper Diaper Incontinent Incontinent # Voids 2 1 # Bowel Movements 1 - Exam PHYSICAL EXAMINATION: Patient is lying in the bed comfortably, no acute distress, awake alert. HEENT: Normocephalic. Neck is supple. Pupils reactive. Nostrils clear. Oral cavity is moist. Ears reveal no drainage. Neck reveals no JVD, carotid bruits, or thyromegaly. CHEST EXAMINATION: Trachea is central. Symmetrical expansion. Lung hartley clear to auscultation and percussion. CARDIAC: Normal S1, S2 with no gallops. No murmurs ABDOMEN: Soft. Bowel sounds normal. No organomegaly. No abdominal bruits. Extremities reveal no edema. No clubbing or cyanosis Neurologically awake, alert, oriented x3 with well-coordinated movements. Skin: Patient has a rash on the chest wall Musculoskeletal: Leg cast. no joint swelling or deformity. - Labs CBC & Chem 7: 05/11/17 06:45 05/11/17 06:45 Labs: Abnormal Lab Results - Last 24 Hours (Table) 05/11/17 05/11/17 Range/Units 06:45 06:45 WBC 13.8 H (3.8-10.6) k/uL RBC 3.34 L (4.30-5.90) m/uL Hgb 10.5 L (13.0-17.5) gm/dL Hct 33.7 L (39.0-53.0) % MCV 100.6 H (80.0-100.0) fL RDW 16.5 H (11.5-15.5) % Chloride 111 H (98-107) mmol/L Calcium 7.3 L (8.4-10.2) mg/dL Total Protein 4.3 L (6.3-8.2) g/dL Albumin 2.0 L (3.5-5.0) g/dL Microbiology - Last 24 Hours (Table) 05/04/17 23:29 Blood Culture - Final Blood No Growth after 144 hours Assessment and Plan Plan: 1 sepsis secondary to E. coli urinary tract infection. Continue with Zosyn. Leukocytosis improved #2 cecal dilation with possible abscess, suspected abdominal infection. Says he recommends colonoscopy once medically stable #3 acute kidney injury improved #4 acute hypoxic respiratory failure resolved #5 history of CVA #6 recent leg fracture #7 DVT prophylaxis #8 hyponatremia and hyperkalemia resolved Plan: Patient be continued on current antibiotics in the form of Zosyn and continue the breathing treatments and follow closely outpatient colonoscopy once medically stable. ID and pulmonary is following this patient. Further recommendations based on the clinical course. Time with Patient: Greater than 30
[2017-05-12] MEDS: PIPERACILLIN-TAZOBACTAM 3.375 GM in DEXTROSE/WATER 1 50ML.BAG IVPB SCH ×3 (00:47→16:00)
[2017-05-12] MEDS: LORazepam 2 MG/ML SYRINGE IV PRN ×2 (04:10→18:37)
[2017-05-12] MEDS: ENOXAPARIN 40 MG/0.4 ML SYRINGE SQ SCH (06:33)
[2017-05-12] MEDS: AMMONIUM LACTATE 12% LOTION 225 GM BTL TOPICAL SCH ×2 (07:49→22:49)
[2017-05-12] MEDS: BACITRACIN/POLYMYX 500-10,000 UNIT/GM OPHTH OINT 3.5 GM TUBE BOTH EYES SCH ×4 (07:49→22:50)
[2017-05-12 07:53] LABS: Basophils # (A) 0.1 k/uL (0-0.2); Basophils % (A) 0 %; CH 30.5; CHCM 31.6; Eosinophils # (A) 0.3 k/uL (0-0.7); Eosinophils % (A) 3 %; HDW 3.05; HGB 10.6 gm/dL (13.0-17.5); Hypochromasia Slight; Luc # (Auto) 0.21; Luc % (Auto) 2; Lymphocytes # (A) 1.1 k/uL (1.0-4.8); Lymphocytes % (A) 10 %; MCH 31.4 pg (25.0-35.0); MCHC 32.3 g/dL (31.0-37.0); MCV 97.3 fL (80.0-100.0); Mean Platelet Volume 8.5; Monocytes # (A) 0.6 k/uL (0-1.0); Monocytes % (A) 5 %; Neutrophils # (A) 8.6 k/uL (1.3-7.7); Neutrophils % (A) 79 %; RBC 3.39 m/uL (4.30-5.90); RDW 15.9 % (11.5-15.5); WBC 10.9 k/uL (3.8-10.6); WBC (Perox) 10.57
[2017-05-12 08:03] LABS: Anion Gap 6 mmol/L; Blood Urea Nitrogen 16 mg/dL (9-20); Calcium 7.4 mg/dL (8.4-10.2); Carbon Dioxide 23 mmol/L (22-30); Chloride 109 mmol/L (98-107); Glucose 75 mg/dL (74-99); Non-African American GFR(MDRD) >60 (>60 ml/min/1.73 sqM); Potassium 3.6 mmol/L (3.5-5.1); Sodium 138 mmol/L (137-145)
[2017-05-12] MEDS: LORATADINE 10 MG TAB PO SCH (08:36)
[2017-05-12] MEDS: CLOTRIMAZOLE/BETAMETH 1-0.05% CREAM 45 GM TUBE TOPICAL SCH ×2 (08:36→22:49)
[2017-05-12] MEDS: METOPROLOL TARTRATE 50 MG TAB PO SCH ×2 (08:36→22:49)
[2017-05-12] MEDS: CLOPIDOGREL 75 MG TAB PO SCH (08:36)
[2017-05-12] MEDS: BUDESONIDE 0.5 MG/2 ML NEBU INHALATION SCH ×2 (11:50→20:44)
[2017-05-12] MEDS: IPRATROPIUM-ALBUTEROL 3 ML NEB INHALATION SCH ×3 (11:51→20:45)
--- NOTE | 2017-05-12 12:01 | P.PN ---
Subjective 05/08/17- This is an 82-year-old male patient who came into the emergency department on 05/02/2017 from an extended care facility. Patient was noted to have a potassium of 6.4 at the extended care facility and therefore they sent him over. The patient did not have any further complaints and he has intermittent confusion which is his baseline. EKG performed in the emergency room did show sinus rhythm with occasional PVCs, patient had no ST segment elevation or depression or T-wave abnormalities. The patient was put on lactulose. Hypertension is also being worked up for possible rectal mass and will undergo colonoscopy when stable with Dr. Piña. All labs and reports have been reviewed. Patient is being seen and examined today on the sixth floor for pulmonary services related to progression of shortness of breath over the last few days. He has had a cough however denies any congestion. Nursing staff has denied any sputum production. He is alert and oriented 1 with intermittent confusion. Has been afebrile. Currently is on 3 L of supplemental oxygen via nasal cannula. It is unclear if the patient utilized oxygen in the extended care facility setting. Patient is also on a mechanical soft diet with aspiration precautions. 05/09/17- this patient is being evaluated and examined and seen on rounds today. All labs and reports were reviewed. The patient hyperkalemia has improved. The white blood cell count has come down to 12.8. Patient was noted to have increased lethargy and decreased cognition yesterday afternoon therefore a neurology consult was initiated. Patient is going for a CT of the brain as well as an EEG today. Patient's speech is noted to be slightly slurred and mumbled. Overnight he was noted to refuse care, had increase in agitation, and was refusing food and fluids. and primary care were updated. 05/10/17- this patient is being evaluated exam and seen today on the selective care unit. All labs and reports have been reviewed. Patient appears more awake today than previously. Patient did undergo a CT of the brain and EEG yesterday. Neurology and nephrology is on consult. Patient's prognosis is guarded and he has multiple comorbidities. Upon examination the patient's resting up in bed on room air states he occasionally has shortness of breath with exertion. He denies any cough or congestion at this time. Discharge planning is in process and appears the patient will go back to extended care facility when discharged. 05/11/17- patient is being seen in evaluated and examined today on the fifth floor. Patient is known to be slightly tired however is easily awoken. Currently he is resting up in bed on room air. Patient noticed to have a faint light red flat erythema rash to his right lateral chest. He denies any itching or pain. The area is small and diffuse. We will continue to monitor this. He does have Lotrisone cream for the area. On examination he denies any shortness of breath cough or congestion. Family at bedside updated on plan of care. 05/12/17- patient is being seen examined and evaluated today on the floor. The patient continues to be tired however is easily aroused upon examination. No further progression is noted of his rash to the right lateral chest. On examination patient's resting up in bed on room air. Shortness of breath as noted with exertion. Intermittent cough. He is afebrile, no overnight events. Objective - Vital Signs Vital signs: Vital Signs Temp 97.7 F 05/12/17 07:00 Pulse 85 05/12/17 07:50 Resp 18 05/12/17 07:50 BP 152/82 05/12/17 07:00 Pulse Ox 96 05/12/17 07:00 Intake & Output 05/11/17 05/12/17 05/12/17 18:59 06:59 18:59 Intake Total 425 470 Output Total 200 Balance 225 470 Weight 69.5 kg 69.74 kg Intake: Intake, IV Titration 350 450 Amount Dextrose 5% in Water 1, 350 450 000 ml @ 50 mls/hr IV . Q[facility]H [facility] Rx#:[id number] Oral 75 20 Output: Urine 200 Other: Voiding Method Diaper Diaper Diaper Incontinent Incontinent Incontinent # Voids 1 3 # Bowel Movements 1 2 - Exam GENERAL EXAM: Alert, intermittent confusion noted which is baseline, comfortable in no apparent distress. HEAD: Normocephalic. EYES: Normal reaction of pupils, equal size. NOSE: Clear with pink turbinates. THROAT: No erythema or exudates. NECK: No masses, no JVD. CHEST: No chest wall deformity. LUNGS: Equal air entry with no crackles, wheeze, rhonchi or dullness. Breath sounds decreased bilaterally. CVS: S1 and S2 normal with no audible mumurs, regular rhythm. ABDOMEN: No hepatosplenomegaly, normal bowel sounds, no guarding or rigidity. EXTREMITIES: +2 edema noted, pedal pulses palpable. Chronic skin changes noted SKIN: Multiple skin tears, flat erythema diffuse rash to right lateral chest, cream applied CENTRAL NERVOUS SYSTEM: No focal deficits, moves all 4 extremities. - Labs CBC & Chem 7: 05/12/17 06:54 05/12/17 06:54 Labs: Abnormal Lab Results - Last 24 Hours (Table) 05/12/17 05/12/17 Range/Units 06:54 06:54 WBC 10.9 H (3.8-10.6) k/uL RBC 3.39 L (4.30-5.90) m/uL Hgb 10.6 L (13.0-17.5) gm/dL Hct 33.0 L (39.0-53.0) % RDW 15.9 H (11.5-15.5) % Neutrophils # 8.6 H (1.3-7.7) k/uL Chloride 109 H (98-107) mmol/L Calcium 7.4 L (8.4-10.2) mg/dL Assessment and Plan Plan: Assessment Sepsis with fever, gram-negative Acute hypoxic respiratory failure Hyperkalemia, improved Acute renal failure Urinary tract infection, culture positive for gram negatives bacilli and E. coli Hypernatremia likely related to decreased oral intake Probable rectal mass, currently being worked up Diarrhea History of CVA Plan Patient is currently being worked up for discharge planning to extended care facility. Medications have been reviewed and will be continued as ordered. Patient's prognosis is guarded. Patient known to be resistive to care and medical treatment. Continue to monitor electrolytes. Patient will undergo colonoscopy once cleared, in the outpatient setting. Continue with pulmonary hygiene, coughing and deep breathing exercises, and supportive care. Supplemental oxygen to maintain oxygen saturations of 92% or better. Continue nebulizer treatments in the form of DuoNeb and budesonide. . GI and DVT prophylaxis. Appreciate consults recommendations. We will continue to monitor labs/results and adjust treatment as necessary. Further recommendations pending. I performed an examination of the patient and discussed their management with the nurse practitioner. I have reviewed the nurse practitioner's note and agree with the documented findings and plan of care.
[2017-05-12] MEDS: DEXTROSE 5% IN WATER 1,000 ML IV SCH (14:54)
[2017-05-12] MEDS: SENNOSIDES-DOCUSATE SODIUM 1 EACH TAB PO SCH (23:49)
[2017-05-13] MEDS: LORazepam 2 MG/ML SYRINGE IV PRN ×2 (00:44→23:31)
[2017-05-13] MEDS: PIPERACILLIN-TAZOBACTAM 3.375 GM in DEXTROSE/WATER 1 50ML.BAG IVPB SCH ×4 (00:47→23:24)
--- NOTE | 2017-05-13 01:07 | P.PN ---
Subjective Principal diagnosis: Gram-negative sepsis This continue progress note an 82-year-old white male essentially admitted for acute renal failure and left leg fracture found have right lower lobe pneumonia. Patient also found to have E. coli urinary tract infection. CT of abdomen showed cecal dilation and concern for inflammation for possible abscess as well. General surgery recommends colonoscopy once he is medically stable. This morning he seems to be considerably weaker. Rashes develop on the left torso and axillary area. I suspect ALLERGY reaction versus fungus. He is now on Lotrisone. Patient is currently transferred to medical floor. No fever no chills. Leukocytosis improving. Continued on IV Zosyn. 05/12/2017 Patient is lying comfortably. Patient is awake alert but could not provide history. Rash seems to be improving. Leukocytosis trending down. Otherwise no acute overnight issues. No fever no chills. Objective - Vital Signs Vital signs: Vital Signs Temp 97.7 F 05/12/17 07:00 Pulse 90 05/12/17 21:00 Resp 18 05/12/17 16:00 BP 152/82 05/12/17 07:00 Pulse Ox 96 05/12/17 20:46 Intake & Output 05/12/17 05/12/17 05/13/17 06:59 18:59 06:59 Intake Total 470 Balance 470 Weight 69.74 kg 69.74 kg Intake: Intake, IV Titration 450 Amount Dextrose 5% in Water 1, 450 000 ml @ 50 mls/hr IV . Q20H [facility] Rx#:[id number] Oral 20 Other: Voiding Method Diaper Diaper Incontinent Incontinent # Voids 3 2 # Bowel Movements 2 - Exam PHYSICAL EXAMINATION: Patient is lying in the bed comfortably, no acute distress, awake alert. HEENT: Normocephalic. Neck is supple. Pupils reactive. Nostrils clear. Oral cavity is moist. Ears reveal no drainage. Neck reveals no JVD, carotid bruits, or thyromegaly. CHEST EXAMINATION: Trachea is central. Symmetrical expansion. Lung hartley clear to auscultation and percussion. CARDIAC: Normal S1, S2 with no gallops. No murmurs ABDOMEN: Soft. Bowel sounds normal. No organomegaly. No abdominal bruits. Extremities reveal no edema. No clubbing or cyanosis Neurologically awake, alert, oriented x3 with well-coordinated movements. Skin: Patient has a rash on the chest wall Musculoskeletal: Leg cast. no joint swelling or deformity. - Labs CBC & Chem 7: 05/12/17 06:54 05/12/17 06:54 Labs: Abnormal Lab Results - Last 24 Hours (Table) 05/12/17 05/12/17 Range/Units 06:54 06:54 WBC 10.9 H (3.8-10.6) k/uL RBC 3.39 L (4.30-5.90) m/uL Hgb 10.6 L (13.0-17.5) gm/dL Hct 33.0 L (39.0-53.0) % RDW 15.9 H (11.5-15.5) % Neutrophils # 8.6 H (1.3-7.7) k/uL Chloride 109 H (98-107) mmol/L Calcium 7.4 L (8.4-10.2) mg/dL Assessment and Plan Plan: 1 sepsis secondary to E. coli urinary tract infection. Continue with Zosyn. Leukocytosis improved #2 cecal dilation with possible abscess, suspected abdominal infection. Says he recommends colonoscopy once medically stable #3 acute kidney injury improved #4 acute hypoxic respiratory failure resolved #5 history of CVA #6 recent leg fracture #7 DVT prophylaxis #8 hyponatremia and hyperkalemia resolved Plan: Patient be continued on current antibiotics in the form of Zosyn and continue the breathing treatments and follow closely. outpatient colonoscopy once medically stable. ID and pulmonary is following this patient. Further recommendations based on the clinical course.
[2017-05-13] MEDS: ENOXAPARIN 40 MG/0.4 ML SYRINGE SQ SCH (06:21)
[2017-05-13] MEDS: BUDESONIDE 0.5 MG/2 ML NEBU INHALATION SCH ×2 (07:22→20:55)
[2017-05-13] MEDS: IPRATROPIUM-ALBUTEROL 3 ML NEB INHALATION SCH ×3 (07:22→20:55)
--- NOTE | 2017-05-13 08:36 | P.PN ---
Subjective Principal diagnosis: Altered mental status. The patient is an 82-year-old white male essentially admitted for sepsis. Pneumonia is also noted. He had significant altered mental status but is significantly weak. Sepsis is noted and he continues to be on Zosyn. Pulmonology is also following the patient. No sniffing chest pain or shortness of breath stated but he is significantly weaker than his baseline. No new voiding difficulties. Objective - Vital Signs Vital signs: Vital Signs Temp 97.9 F 05/13/17 07:00 Pulse 108 H 05/13/17 07:45 Resp 16 05/13/17 07:45 BP 163/88 05/13/17 07:00 Pulse Ox 95 05/13/17 07:00 Intake & Output 05/12/17 05/13/17 05/13/17 18:59 06:59 18:59 Intake Total 670 Balance 670 Weight 69.74 kg 66 kg Intake: Intake, IV Titration 450 Amount Dextrose 5% in Water 1, 450 000 ml @ 50 mls/hr IV . Q20H [facility] Rx#:[id number] Oral 220 Other: Voiding Method Diaper Diaper Diaper Incontinent Incontinent Incontinent # Voids 2 3 - Constitutional General appearance: Present: average body habitus - EENT Eyes: Absent: abnormal pupil - Respiratory Respiratory: bilateral: diminished - Cardiovascular Heart sounds: normal: S1, S2 - Gastrointestinal General gastrointestinal: Present: soft. Absent: tenderness - Musculoskeletal Musculoskeletal: Present: generalized weakness - Psychiatric Psychiatric: Absent: appropriate affect - Labs CBC & Chem 7: 05/12/17 06:54 05/12/17 06:54 Assessment and Plan (1) Acute renal failure Status: Acute (2) Gram-negative sepsis with organ dysfunction Status: Acute (3) CVA (cerebral vascular accident) Status: Acute Plan: The patient will continue current regimen or treatment. Prognosis is somewhat guarded secondary to secondary weakness. I am in touch with his who is following closely. He continues to be full code. Otherwise, check CMP in a.m. Discharge planning to be transferred to [facility]. Time with Patient: Less than 30
[2017-05-13] MEDS: METOPROLOL TARTRATE 50 MG TAB PO SCH ×2 (08:39→21:52)
[2017-05-13] MEDS: LORATADINE 10 MG TAB PO SCH (08:39)
[2017-05-13] MEDS: CLOPIDOGREL 75 MG TAB PO SCH (08:39)
[2017-05-13] MEDS: BACITRACIN/POLYMYX 500-10,000 UNIT/GM OPHTH OINT 3.5 GM TUBE BOTH EYES SCH ×4 (08:44→21:09)
[2017-05-13] MEDS: CLOTRIMAZOLE/BETAMETH 1-0.05% CREAM 45 GM TUBE TOPICAL SCH ×2 (08:44→21:05)
[2017-05-13] MEDS: AMMONIUM LACTATE 12% LOTION 225 GM BTL TOPICAL SCH ×2 (08:44→21:08)
--- NOTE | 2017-05-13 10:12 | P.PN ---
Subjective Patient is seen in follow-up for acute kidney injury. His potassium was 6.4 on admission. Renal function is gradually improving with creatinine down to 1.0 as of yesterday. Hyperkalemia has resolved. Baseline creatinine is 1. Patient 's currently resting in bed. He is not a very reliable historian. He is maintained on D5W and sodium level is down to 138. Oral intake remains poor. He is currently being treated for pneumonia as well as E. coli UTI. Vital signs are stable. General: The patient appeared well nourished and normally developed. HEENT: Head exam is unremarkable. Neck is without jugular venous distension. LUNGS: Lungs are clear to auscultation and percussion. Breath sounds decreased. HEART: Rate and Rhythm are regular. First and second heart sounds normal. No murmurs, rubs or gallops. ABDOMEN: Abdominal exam reveals normal bowel sounds. Non-tender and non- distended. No evidence of peritonitis. EXTREMITITES: No clubbing, cyanosis, or edema. Objective - Vital Signs Vital signs: Vital Signs Temp 97.9 F 05/13/17 07:00 Pulse 108 H 05/13/17 07:45 Resp 16 05/13/17 07:45 BP 163/88 05/13/17 07:00 Pulse Ox 95 05/13/17 07:00 Intake & Output 05/12/17 05/13/17 05/13/17 18:59 06:59 18:59 Intake Total 670 Balance 670 Weight 69.74 kg 66 kg 66 kg Intake: Intake, IV Titration 450 Amount Dextrose 5% in Water 1, 450 000 ml @ 50 mls/hr IV . Q20H [facility] Rx#:[id number] Oral 220 Other: Voiding Method Diaper Diaper Diaper Incontinent Incontinent Incontinent # Voids 2 3 - Labs CBC & Chem 7: 05/12/17 06:54 05/12/17 06:54 Assessment and Plan Plan: Assessment: #1. Nonoliguric acute kidney injury secondary to ischemic ATN due to hemodynamic instability and diuresis. There may have also been a component of urinary retention. Improved with IV hydration. Creatinine was 4.1 on admission and is down to 1.0. #2. Hyperkalemia secondary to acute kidney injury and potassium supplementation. Improved with medical treatment. #3. UTI. Urine culture positive for gram-negative bacilli - E. coli. #4. Hypernatremia secondary to lack of oral water intake. Resolved. #5. Cecal dilation with concern of abscess. Plan: Hep-Lock IV fluids. Encouraged oral intake. Avoid nephrotoxic agents and hypotensive episodes. Potential discharge to ECF today.
--- NOTE | 2017-05-13 11:04 | P.PN ---
Subjective 05/08/17- This is an 82-year-old male patient who came into the emergency department on 05/02/2017 from an extended care facility. Patient was noted to have a potassium of 6.4 at the extended care facility and therefore they sent him over. The patient did not have any further complaints and he has intermittent confusion which is his baseline. EKG performed in the emergency room did show sinus rhythm with occasional PVCs, patient had no ST segment elevation or depression or T-wave abnormalities. The patient was put on lactulose. Hypertension is also being worked up for possible rectal mass and will undergo colonoscopy when stable with Dr. Piña. All labs and reports have been reviewed. Patient is being seen and examined today on the sixth floor for pulmonary services related to progression of shortness of breath over the last few days. He has had a cough however denies any congestion. Nursing staff has denied any sputum production. He is alert and oriented 1 with intermittent confusion. Has been afebrile. Currently is on 3 L of supplemental oxygen via nasal cannula. It is unclear if the patient utilized oxygen in the extended care facility setting. Patient is also on a mechanical soft diet with aspiration precautions. 05/09/17- this patient is being evaluated and examined and seen on rounds today. All labs and reports were reviewed. The patient hyperkalemia has improved. The white blood cell count has come down to 12.8. Patient was noted to have increased lethargy and decreased cognition yesterday afternoon therefore a neurology consult was initiated. Patient is going for a CT of the brain as well as an EEG today. Patient's speech is noted to be slightly slurred and mumbled. Overnight he was noted to refuse care, had increase in agitation, and was refusing food and fluids. and primary care were updated. 05/10/17- this patient is being evaluated exam and seen today on the selective care unit. All labs and reports have been reviewed. Patient appears more awake today than previously. Patient did undergo a CT of the brain and EEG yesterday. Neurology and nephrology is on consult. Patient's prognosis is guarded and he has multiple comorbidities. Upon examination the patient's resting up in bed on room air states he occasionally has shortness of breath with exertion. He denies any cough or congestion at this time. Discharge planning is in process and appears the patient will go back to extended care facility when discharged. 05/11/17- patient is being seen in evaluated and examined today on the fifth floor. Patient is known to be slightly tired however is easily awoken. Currently he is resting up in bed on room air. Patient noticed to have a faint light red flat erythema rash to his right lateral chest. He denies any itching or pain. The area is small and diffuse. We will continue to monitor this. He does have Lotrisone cream for the area. On examination he denies any shortness of breath cough or congestion. Family at bedside updated on plan of care. 05/12/17- patient is being seen examined and evaluated today on the floor. The patient continues to be tired however is easily aroused upon examination. No further progression is noted of his rash to the right lateral chest. On examination patient's resting up in bed on room air. Shortness of breath as noted with exertion. Intermittent cough. He is afebrile, no overnight events. 05/13/17- patient is being seen examined and evaluated today on the floor. On examination the patient is resting in bed on room air, continues with shortness of breath on exertion. According to the nursing staff during breakfast the patient was coughing and choking and has dysphagia diet. Continue swallow evaluation with speech therapy has been ordered. Objective - Vital Signs Vital signs: Vital Signs Temp 97.9 F 05/13/17 07:00 Pulse 108 H 05/13/17 07:45 Resp 16 05/13/17 07:45 BP 163/88 05/13/17 07:00 Pulse Ox 95 05/13/17 07:00 Intake & Output 05/12/17 05/13/17 05/13/17 18:59 06:59 18:59 Intake Total 670 Balance 670 Weight 69.74 kg 66 kg 66 kg Intake: Intake, IV Titration 450 Amount Dextrose 5% in Water 1, 450 000 ml @ 50 mls/hr IV . Q20H [facility] Rx#:[id number] Oral 220 Other: Voiding Method Diaper Diaper Diaper Incontinent Incontinent Incontinent # Voids 2 3 - Exam GENERAL EXAM: Alert, intermittent confusion noted which is baseline, comfortable in no apparent distress. HEAD: Normocephalic. EYES: Normal reaction of pupils, equal size. NOSE: Clear with pink turbinates. THROAT: No erythema or exudates. NECK: No masses, no JVD. CHEST: No chest wall deformity. LUNGS: Equal air entry with no crackles, wheeze, rhonchi or dullness. Breath sounds decreased bilaterally. CVS: S1 and S2 normal with no audible mumurs, regular rhythm. ABDOMEN: No hepatosplenomegaly, normal bowel sounds, no guarding or rigidity. EXTREMITIES: +2 edema noted, pedal pulses palpable. Chronic skin changes noted , bilateral legs wrapped SKIN: Multiple skin tears, flat erythema diffuse rash to right lateral chest, cream applied CENTRAL NERVOUS SYSTEM: No focal deficits, moves all 4 extremities. - Labs CBC & Chem 7: 05/12/17 06:54 05/12/17 06:54 Assessment and Plan Plan: Assessment Sepsis with fever, gram-negative Acute hypoxic respiratory failure Hyperkalemia, improved Acute renal failure Urinary tract infection, culture positive for gram negatives bacilli and E. coli Hypernatremia likely related to decreased oral intake Probable rectal mass, currently being worked up Diarrhea History of CVA Plan Patient is currently being worked up for discharge planning to extended care facility. Discharge will be held until infectious disease can recommend antibiotics for possible ESBL in the urine. Medications have been reviewed and will be continued as ordered. Patient's prognosis is guarded. Patient known to be resistive to care and medical treatment. Continue to monitor electrolytes. Patient will undergo colonoscopy once cleared, in the outpatient setting. Continue with pulmonary hygiene, coughing and deep breathing exercises , and supportive care. Supplemental oxygen to maintain oxygen saturations of 92 % or better. Continue nebulizer treatments in the form of DuoNeb and budesonide. . GI and DVT prophylaxis. Appreciate consults recommendations. We will continue to monitor labs/results and adjust treatment as necessary. Further recommendations pending. I performed an examination of the patient and discussed their management with the nurse practitioner. I have reviewed the nurse practitioner's note and agree with the documented findings and plan of care.
--- NOTE | 2017-05-13 15:53 | P.PN ---
<An Pierre - Last Filed: 05/13/17 15:46> Progress Note - Text 82-year-old being seen by surgical service for eval of abdominal pain being worked up for a questionable rectal mass the plan was to perform a colonoscopy when the patient was medically stable condition at a CAT scan of the abdomen showed cecal dilatation patient has had generalized weakness is being treated for gram-negative sepsis with organ dysfunction. Acute renal failure is being followed by nephrology. There is no acute surgical intervention at this time. Did note medical services indicating the patient may possibly be transferred or discharged within the next 24-48 hours to the [facility] facility when patient is medically stable will need a colonoscopy to be set up in the outpatient setting to evaluate the possible questionable rectal mass the white count on the was 10.9 run a low-grade temp this morning of 99.1 we'll sign off and re-eval as needed. The above impression and plan of care have been discussed and directed by signing physician. An Pierre nurse practitioner acting as scribe for signing physician. <Dennis Trevioz - Last Filed: 05/13/17 18:33> Progress Note - Text Agree with above. No surgical intervention planned during this hospitalization. Consideration for outpatient colonoscopy to be reviewed with his primary care physician. Follow-up with Dr. Piña post discharge.
[2017-05-13] MEDS: SENNOSIDES-DOCUSATE SODIUM 1 EACH TAB PO SCH (21:08)
--- NOTE | 2017-05-13 22:44 | P.PN ---
Subjective Principal diagnosis: sepsis 82-year-old male resident of [facility] was found evidence of multiple abnormal labs included acute renal failure and hyperkalemia. The patient was transferred from the [facility] for further intervention. Infectious diseases consultation was requested when the patient developed a high-grade fever reportedly over 104. the consult was initiated as the patient became febrile, hypotensive and tachycardic. The patient is a poor historian. The patient today is a bit more comfortable than reported last evening. He relates that he has minimal hunger. His mouth is dry. As related lactic acid was drawn which was elevated and had evidence of leukocytosis, the patient was given fluids and antibiotic therapy with Zosyn given the concerns to urinary system as well as potential abdominal source since he was having some diarrhea. As the patient is slightly more comfortable. Has been seen by surgery and is being monitored for a potential colonoscopy in the future. Concerns to colonic abscess. No complaints. Objective - Vital Signs Vital signs: Vital Signs Temp 99.1 F 05/13/17 15:00 Pulse 102 H 05/13/17 21:19 Resp 16 05/13/17 16:00 BP 172/92 05/13/17 21:13 Pulse Ox 95 05/13/17 15:00 Intake & Output 05/13/17 05/13/17 05/14/17 06:59 18:59 06:59 Intake Total 670 150 Balance 670 150 Weight 66 kg 66 kg Intake: Intake, IV Titration 450 150 Amount Dextrose 5% in Water 1, 450 100 000 ml @ 50 mls/hr IV . Q20H [facility] Rx#:[id number] Piperacillin-Tazobactam 3 50 .375 gm In Dextrose/Water 1 50ml.bag @ 12.5 mls/hr IVPB Q8HR [facility] Rx#: [id number] Oral 220 Other: Voiding Method Diaper Diaper Incontinent Incontinent # Voids 3 - Exam 82-year-old male poor historian HEENT: Anicteric conjunctiva are pink and mildly crusty nasal mucosa grossly intact without significant lesions, there is no thrush but the oral cavity is very dry Neck: The neck is supple without significant lymphadenopathy or thyromegaly. Lungs: There is symmetrical air entry. Scattered expiratory wheezes are noted. Heart: Irregular with soft S4 no distinct murmur click or rub Abdomen: Positive bowel sounds soft and nontender without palpable masses or organomegaly. There was no guarding or rebound. Extremities: The extremities have some minimal trace edema but no significant lesions are seen in the upper extremities. The lower extremities have evidence of the extensive skin lesion the bilateral lower extremities. There is a healing left hip incision which is without erythema crepitance or fluctuance. Neuro: Arousable, speech content is poor and inconsistent can poorly understandable he however does move arms and legs spontaneously - Labs CBC & Chem 7: 05/12/17 06:54 05/12/17 06:54 Labs: Laboratory Results WBC 10.9 k/uL (3.8-10.6) H 05/12/17 06:54 RBC 3.39 m/uL (4.30-5.90) L 05/12/17 06:54 Hgb 10.6 gm/dL (13.0-17.5) L 05/12/17 06:54 Hct 33.0 % (39.0-53.0) L 05/12/17 06:54 MCV 97.3 fL (80.0-100.0) 05/12/17 06:54 MCH 31.4 pg (25.0-35.0) 05/12/17 06:54 MCHC 32.3 g/dL (31.0-37.0) 05/12/17 06:54 RDW 15.9 % (11.5-15.5) H 05/12/17 06:54 Plt Count 406 k/uL (150-450) 05/12/17 06:54 Neutrophils % 79 % 05/12/17 06:54 Lymphocytes % 10 % 05/12/17 06:54 Monocytes % 5 % 05/12/17 06:54 Eosinophils % 3 % 05/12/17 06:54 Basophils % 0 % 05/12/17 06:54 Neutrophils # 8.6 k/uL (1.3-7.7) H 05/12/17 06:54 Lymphocytes # 1.1 k/uL (1.0-4.8) 05/12/17 06:54 Monocytes # 0.6 k/uL (0-1.0) 05/12/17 06:54 Eosinophils # 0.3 k/uL (0-0.7) 05/12/17 06:54 Basophils # 0.1 k/uL (0-0.2) 05/12/17 06:54 Hypochromasia Slight 05/12/17 06:54 Anisocytosis Slight 05/11/17 06:45 Macrocytosis Slight 05/11/17 06:45 Sodium 138 mmol/L (137-145) 05/12/17 06:54 Potassium 3.6 mmol/L (3.5-5.1) 05/12/17 06:54 Chloride 109 mmol/L (98-107) H 05/12/17 06:54 Carbon Dioxide 23 mmol/L (22-30) 05/12/17 06:54 Anion Gap 6 mmol/L 05/12/17 06:54 BUN 16 mg/dL (9-20) 05/12/17 06:54 Creatinine 1.00 mg/dL (0.66-1.25) 05/12/17 06:54 Est GFR (MDRD) Af Amer >60 (>60 ml/min/1.73 sqM) 05/12/17 06:54 Est GFR (MDRD) Non-Af >60 (>60 ml/min/1.73 sqM) 05/12/17 06:54 Glucose 75 mg/dL (74-99) 05/12/17 06:54 POC Glucose (mg/dL) 98 mg/dL (75-99) 05/04/17 22:36 POC Glu [employer] Darryl James 05/04/17 22:36 Lactic Ac Sepsis Rflx Y 05/05/17 00:06 Plasma Lactic Acid Froy 1.3 mmol/L (0.7-2.0) 05/05/17 03:21 Calcium 7.4 mg/dL (8.4-10.2) L 05/12/17 06:54 Magnesium 1.7 mg/dL (1.6-2.3) 05/10/17 05:34 Total Bilirubin 0.4 mg/dL (0.2-1.3) 05/11/17 06:45 AST 26 U/L (17-59) 05/11/17 06:45 ALT 34 U/L (21-72) 05/11/17 06:45 Alkaline Phosphatase 115 U/L (38-126) 05/11/17 06:45 Total Creatine Kinase 125 U/L (55-170) 05/02/17 17:46 CK-MB (CK-2) 3.7 ng/mL (0.0-2.4) H* 05/02/17 17:46 CK-MB (CK-2) Rel Index 3.0 05/02/17 17:46 Troponin I 0.029 ng/mL (0.000-0.034) 05/02/17 17:46 Total Protein 4.3 g/dL (6.3-8.2) L 05/11/17 06:45 Albumin 2.0 g/dL (3.5-5.0) L 05/11/17 06:45 Urine Color Yellow 05/02/17 19:18 Urine Appearance Cloudy (Clear) 05/02/17 19:18 Urine pH 6.0 (5.0-8.0) 05/02/17 19:18 Ur Specific [place] 1.011 (1.001-1.035) 05/02/17 19:18 Urine Protein 1+ (Negative) H 05/02/17 19:18 Urine Glucose (UA) Negative (Negative) 05/02/17 19:18 Urine Ketones Negative (Negative) 05/02/17 19:18 Urine Blood Moderate (Negative) H 05/02/17 19:18 Urine Nitrite Negative (Negative) 05/02/17 19:18 Urine Bilirubin Negative (Negative) 05/02/17 19:18 Urine Urobilinogen 3.0 mg/dL (<2.0) 05/02/17 19:18 Ur Leukocyte Esterase Large (Negative) H 05/02/17 19:18 Urine RBC 71 /hpf (0-5) H 05/02/17 19:18 Urine WBC 155 /hpf (0-5) H 05/02/17 19:18 Urine WBC Clumps Few /hpf (None) H 05/02/17 19:18 Urine Bacteria Few /hpf (None) H 05/02/17 19:18 Urine Mucus Rare /hpf (None) H 05/02/17 19:18 C. difficile (EIA) Intrp Negative (Negative) 05/03/17 15:54 Microbiology 05/04/17 23:29 Blood Blood Culture - Final No Growth after 144 hours 05/03/17 17:57 Blood Blood Culture - Final No Growth after 144 hours 05/03/17 03:00 Urine,Catheterized Urine Culture - Final Escherichia coli Assessment and Plan (1) Gram-negative sepsis with organ dysfunction Narrative/Plan: 82-year-old male transferred from [facility] for alteration of his status. We'll request performed there was evidence of leukocytosis, acute renal failure, hyperkalemia. With this he was transferred to Hospital and is now received intervention and has been seen by nephrology. Because of his illness computed tomography scan of the abdomen and pelvis was performed showing evidence of the significant cecal dilatation and concerns to infection and abscess at that site. The patient has been seen by surgery and will plan colonoscopy when he is medically cleared. At the time of the consult fluid bolus was given since his computed tomography scan did not show evidence of heart failure. Antipyretics were given. The patient defervesced and his significant tachycardia and hypotension resolved. The patient has remained on selective care. His CODE STATUS is full, and apparently this has been addressed with the family and they do not yet understand the current ramifications of his illness. Ongoing discussion shall be held for more appropriate CODE STATUS. He has had a significant leukocytosis which is improved today. There is evidence of urine culture with E. coli. His fever has resolved. Antibiotic therapy with Zosyn was initiated with concerns to the abdominal sepsis. We will also give coverage for his urinary tract infection based on prior cultures. He does have some crustiness to his eyes and Polysporin was given with improvement. His legs are wrapped continue the ulcer on the dorsum of the right foot. Local wound care as changed to medical Honey to try to debrided this better. Continue to wrap the legs. Assessment followed by surgery. Will need outpatient endoscopic evaluation if possible. As he becomes ready for transfer from the hospital will be able to transition to ciprofloxacin and Flagyl to complete another 10 days of therapy at the extended care facility. Will need close surgical follow-up. Status: Acute (2) Acute renal failure Status: Acute (3) Hyperkalemia Status: Acute (4) UTI (urinary tract infection) Status: Acute
[2017-05-14] MEDS: ENOXAPARIN 40 MG/0.4 ML SYRINGE SQ SCH (06:38)
[2017-05-14 07:38] LABS: CH 30.3; CHCM 31.7; HCT 35.6 % (39.0-53.0); HDW 3.11; HGB 11.5 gm/dL (13.0-17.5); Hypochromasia Slight; MCH 31.1 pg (25.0-35.0); MCHC 32.3 g/dL (31.0-37.0); MCV 96.4 fL (80.0-100.0); Mean Platelet Volume 8.5; RBC 3.69 m/uL (4.30-5.90); WBC 21.5 k/uL (3.8-10.6)
[2017-05-14 07:52] LABS: ALT 36 U/L (21-72); AST 35 U/L (17-59); Alkaline Phosphatase 155 U/L (38-126); Anion Gap 9 mmol/L; Blood Urea Nitrogen 11 mg/dL (9-20); Carbon Dioxide 23 mmol/L (22-30); Chloride 109 mmol/L (98-107); Glucose 52 mg/dL (74-99); Non-African American GFR(MDRD) >60 (>60 ml/min/1.73 sqM); Potassium 3.7 mmol/L (3.5-5.1); Sodium 141 mmol/L (137-145); Total Bilirubin 0.7 mg/dL (0.2-1.3); Total Protein 5.2 g/dL (6.3-8.2)
[2017-05-14] MEDS: IPRATROPIUM-ALBUTEROL 3 ML NEB INHALATION SCH ×3 (07:52→20:47)
[2017-05-14] MEDS: BUDESONIDE 0.5 MG/2 ML NEBU INHALATION SCH ×2 (07:52→20:47)
[2017-05-14] MEDS ORDERED: METOPROLOL TARTRATE 5 MG/5 ML VIAL IVP PRN (08:29)
--- NOTE | 2017-05-14 08:35 | P.PN ---
Subjective Principal diagnosis: Disorientation poor nutrition. This is a continue present 82-year-old white male essentially admitted for weakness altered mental status pneumonia. The patient was also admitted for sepsis. However, he continues to become more weak. The patient seems disoriented today and will have a modified barium swallow due to perceived dysphagia. He does not answer questions properly today. No other voiding difficulty stated. The team is concerned about cardiac tachycardia. He is unable to take his Lopressor. I will give IV Lopressor today. Objective - Vital Signs Vital signs: Vital Signs Temp 97.9 F 05/13/17 23:00 Pulse 135 H 05/14/17 07:52 Resp 14 05/14/17 07:52 BP 131/92 05/14/17 00:20 Pulse Ox 95 05/14/17 07:52 Intake & Output 05/13/17 05/14/17 05/14/17 18:59 06:59 18:59 Intake Total 150 50 Balance 150 50 Weight 66 kg 61.5 kg Intake: Intake, IV Titration 150 50 Amount Dextrose 5% in Water 1, 100 000 ml @ 50 mls/hr IV . Q20H [facility] Rx#:[id number] Piperacillin-Tazobactam 3 50 50 .375 gm In Dextrose/Water 1 50ml.bag @ 12.5 mls/hr IVPB Q8HR [facility] Rx#: [id number] Oral 0 Other: Voiding Method Diaper Diaper Incontinent Incontinent # Voids 3 # Bowel Movements 3 - Constitutional General appearance: Present: average body habitus - EENT Eyes: Absent: abnormal pupil - Respiratory Respiratory: bilateral: CTA - Cardiovascular Heart sounds: normal: S1, S2 - Gastrointestinal General gastrointestinal: Present: soft. Absent: tenderness - Neurologic Neurologic Comment(s): The patient seems disoriented. - Musculoskeletal Musculoskeletal: Present: generalized weakness - Psychiatric Psychiatric: Absent: A&O x's 3 - Labs CBC & Chem 7: 05/14/17 06:53 05/14/17 06:53 Labs: Abnormal Lab Results - Last 24 Hours (Table) 05/14/17 05/14/17 Range/Units 06:53 06:53 WBC 21.5 H (3.8-10.6) k/uL RBC 3.69 L (4.30-5.90) m/uL Hgb 11.5 L (13.0-17.5) gm/dL Hct 35.6 L (39.0-53.0) % RDW 16.0 H (11.5-15.5) % Plt Count 602 H (150-450) k/uL Chloride 109 H (98-107) mmol/L Glucose 52 L (74-99) mg/dL Calcium 8.0 L (8.4-10.2) mg/dL Alkaline Phosphatase 155 H (38-126) U/L Total Protein 5.2 L (6.3-8.2) g/dL Albumin 2.4 L (3.5-5.0) g/dL Assessment and Plan (1) Acute renal failure Status: Acute (2) Gram-negative sepsis with organ dysfunction Status: Acute (3) CVA (cerebral vascular accident) Status: Acute Plan: Prognosis seems more poor secondary to his continued decline and weakness. We will go ahead and institute Lopressor IV push. Otherwise, modified barium swallow. Consider PEG tube for nutrition if no better. Check CBC and CMP in a.m. See orders otherwise.
[2017-05-14] MEDS: PIPERACILLIN-TAZOBACTAM 3.375 GM in DEXTROSE/WATER 1 50ML.BAG IVPB SCH ×3 (09:11→23:28)
--- NOTE | 2017-05-14 09:12 | P.PN ---
Subjective Principal diagnosis: Patient seen and evaluated exam and clinically patient is doing well in terms of breathing is still issues associated with swallowing dysfunction is present patient has been found ESBL E. coli UTI antibiotics are adjusted by the infectious disease services hemodynamic status stable 05/08/17- This is an 82-year-old male patient who came into the emergency department on 05/02/2017 from an extended care facility. Patient was noted to have a potassium of 6.4 at the extended care facility and therefore they sent him over. The patient did not have any further complaints and he has intermittent confusion which is his baseline. EKG performed in the emergency room did show sinus rhythm with occasional PVCs, patient had no ST segment elevation or depression or T-wave abnormalities. The patient was put on lactulose. Hypertension is also being worked up for possible rectal mass and will undergo colonoscopy when stable with Dr. Piña. All labs and reports have been reviewed. Patient is being seen and examined today on the sixth floor for pulmonary services related to progression of shortness of breath over the last few days. He has had a cough however denies any congestion. Nursing staff has denied any sputum production. He is alert and oriented 1 with intermittent confusion. Has been afebrile. Currently is on 3 L of supplemental oxygen via nasal cannula. It is unclear if the patient utilized oxygen in the extended care facility setting. Patient is also on a mechanical soft diet with aspiration precautions. 05/09/17- this patient is being evaluated and examined and seen on rounds today. All labs and reports were reviewed. The patient hyperkalemia has improved. The white blood cell count has come down to 12.8. Patient was noted to have increased lethargy and decreased cognition yesterday afternoon therefore a neurology consult was initiated. Patient is going for a CT of the brain as well as an EEG today. Patient's speech is noted to be slightly slurred and mumbled. Overnight he was noted to refuse care, had increase in agitation, and was refusing food and fluids. and primary care were updated. 05/10/17- this patient is being evaluated exam and seen today on the selective care unit. All labs and reports have been reviewed. Patient appears more awake today than previously. Patient did undergo a CT of the brain and EEG yesterday. Neurology and nephrology is on consult. Patient's prognosis is guarded and he has multiple comorbidities. Upon examination the patient's resting up in bed on room air states he occasionally has shortness of breath with exertion. He denies any cough or congestion at this time. Discharge planning is in process and appears the patient will go back to extended care facility when discharged. 05/11/17- patient is being seen in evaluated and examined today on the fifth floor. Patient is known to be slightly tired however is easily awoken. Currently he is resting up in bed on room air. Patient noticed to have a faint light red flat erythema rash to his right lateral chest. He denies any itching or pain. The area is small and diffuse. We will continue to monitor this. He does have Lotrisone cream for the area. On examination he denies any shortness of breath cough or congestion. Family at bedside updated on plan of care. 05/12/17- patient is being seen examined and evaluated today on the floor. The patient continues to be tired however is easily aroused upon examination. No further progression is noted of his rash to the right lateral chest. On examination patient's resting up in bed on room air. Shortness of breath as noted with exertion. Intermittent cough. He is afebrile, no overnight events. 05/13/17- patient is being seen examined and evaluated today on the floor. On examination the patient is resting in bed on room air, continues with shortness of breath on exertion. According to the nursing staff during breakfast the patient was coughing and choking and has dysphagia diet. Continue swallow evaluation with speech therapy has been ordered. Objective - Vital Signs Vital signs: Vital Signs Temp 98.9 F 05/14/17 07:00 Pulse 135 H 05/14/17 07:52 Resp 14 05/14/17 07:52 BP 144/78 05/14/17 07:00 Pulse Ox 95 05/14/17 07:52 Intake & Output 05/13/17 05/14/17 05/14/17 18:59 06:59 18:59 Intake Total 150 50 Balance 150 50 Weight 66 kg 61.5 kg Intake: Intake, IV Titration 150 50 Amount Dextrose 5% in Water 1, 100 000 ml @ 50 mls/hr IV . Q20H [facility] Rx#:[id number] Piperacillin-Tazobactam 3 50 50 .375 gm In Dextrose/Water 1 50ml.bag @ 12.5 mls/hr IVPB Q8HR [facility] Rx#: [id number] Oral 0 Other: Voiding Method Diaper Diaper Incontinent Incontinent # Voids 3 # Bowel Movements 3 GENERAL EXAM: Alert, intermittent confusion noted which is baseline, comfortable in no apparent distress. HEAD: Normocephalic. EYES: Normal reaction of pupils, equal size. NOSE: Clear with pink turbinates. THROAT: No erythema or exudates. NECK: No masses, no JVD. CHEST: No chest wall deformity. LUNGS: Equal air entry with no crackles, wheeze, rhonchi or dullness. Breath sounds decreased bilaterally. CVS: S1 and S2 normal with no audible mumurs, regular rhythm. ABDOMEN: No hepatosplenomegaly, normal bowel sounds, no guarding or rigidity. EXTREMITIES: +2 edema noted, pedal pulses palpable. Chronic skin changes noted , bilateral legs wrapped SKIN: Multiple skin tears, flat erythema diffuse rash to right lateral chest, cream applied CENTRAL NERVOUS SYSTEM: No focal deficits, moves all 4 extremities. - Labs CBC & Chem 7: 05/14/17 06:53 05/14/17 06:53 Labs: Abnormal Lab Results - Last 24 Hours (Table) 05/14/17 05/14/17 Range/Units 06:53 06:53 WBC 21.5 H (3.8-10.6) k/uL RBC 3.69 L (4.30-5.90) m/uL Hgb 11.5 L (13.0-17.5) gm/dL Hct 35.6 L (39.0-53.0) % RDW 16.0 H (11.5-15.5) % Plt Count 602 H (150-450) k/uL Chloride 109 H (98-107) mmol/L Glucose 52 L (74-99) mg/dL Calcium 8.0 L (8.4-10.2) mg/dL Alkaline Phosphatase 155 H (38-126) U/L Total Protein 5.2 L (6.3-8.2) g/dL Albumin 2.4 L (3.5-5.0) g/dL Assessment and Plan Plan: Assessment Urinary tract infection, culture positive for gram negatives bacilli and E. coli , which appears to be ESBL, IVS adjust antibiotics Acute hypoxic respiratory failure Hyperkalemia, improved Acute renal failure Sepsis with fever, gram-negative Hypernatremia likely related to decreased oral intake Probable rectal mass, currently being worked up Diarrhea History of CVA Plan Patient is currently being worked up for discharge planning to extended care facility. Discharge will be held until infectious disease can recommend antibiotics for possible ESBL in the urine. Medications have been reviewed and will be continued as ordered. Patient's prognosis is guarded. Patient known to be resistive to care and medical treatment. Continue to monitor electrolytes. Patient will undergo colonoscopy once cleared, in the outpatient setting. Continue with pulmonary hygiene, coughing and deep breathing exercises , and supportive care. Supplemental oxygen to maintain oxygen saturations of 92 % or better. Continue nebulizer treatments in the form of DuoNeb and budesonide. . GI and DVT prophylaxis. Appreciate consults recommendations. We will continue to monitor labs/results and adjust treatment as necessary. Further recommendations pending.
--- NOTE | 2017-05-14 11:17 | FL ---
EXAMINATION TYPE: FL barium swallow w video DATE OF EXAM: 05/14/2017 COMPARISON: NONE HISTORY: Failed swallowing evaluation TECHNIQUE: Fluoroscopy. FINDINGS: Fluoroscopic guidance was provided for the procedure performed in conjunction with the [facility] pathology department. Please see complete report forthcoming from the Speech Pathology departmen t. Various consistencies from thin liquid to solids were administered. Fluoroscopy time 3 minutes 44 seconds Number of images: 0. Aspiration with thin liquids with swallowing. The greater saphenous were without aspiration or penetration. Note is made of some hesitancy of bolus formation with solids in the oropharynx. No significant pooling was observed in the vallecula. There was normal propulsion of the bolus. IMPRESSION: 1. Aspiration with thin liquids.
[2017-05-14] MEDS: CLOTRIMAZOLE/BETAMETH 1-0.05% CREAM 45 GM TUBE TOPICAL SCH ×2 (11:51→21:28)
[2017-05-14] MEDS: BACITRACIN/POLYMYX 500-10,000 UNIT/GM OPHTH OINT 3.5 GM TUBE BOTH EYES SCH ×4 (11:51→21:38)
[2017-05-14] MEDS: CLOPIDOGREL 75 MG TAB PO SCH (11:52)
[2017-05-14] MEDS: METOPROLOL TARTRATE 50 MG TAB PO SCH ×2 (11:52→21:27)
[2017-05-14] MEDS: LORATADINE 10 MG TAB PO SCH (11:52)
[2017-05-14] MEDS: AMMONIUM LACTATE 12% LOTION 225 GM BTL TOPICAL SCH ×2 (11:53→23:28)
[2017-05-14] MEDS: SENNOSIDES-DOCUSATE SODIUM 1 EACH TAB PO SCH (21:38)
[2017-05-15] MEDS: ENOXAPARIN 40 MG/0.4 ML SYRINGE SQ SCH (06:18)
[2017-05-15] MEDS: BUDESONIDE 0.5 MG/2 ML NEBU INHALATION SCH ×2 (07:37→21:54)
[2017-05-15] MEDS: IPRATROPIUM-ALBUTEROL 3 ML NEB INHALATION SCH ×3 (07:37→21:54)
[2017-05-15 07:57] LABS: Anisocytosis Slight; CH 30.6; CHCM 31.5; HDW 3.12; HGB 11.6 gm/dL (13.0-17.5); Hypochromasia Slight; MCH 31.3 pg (25.0-35.0); MCHC 32.1 g/dL (31.0-37.0); MCV 97.6 fL (80.0-100.0); Macrocytosis Slight; Mean Platelet Volume 8.3; RBC 3.69 m/uL (4.30-5.90); RDW 16.1 % (11.5-15.5); WBC 21.1 k/uL (3.8-10.6)
[2017-05-15 08:23] LABS: ALT 35 U/L (21-72); AST 34 U/L (17-59); Alkaline Phosphatase 157 U/L (38-126); Anion Gap 12 mmol/L; Blood Urea Nitrogen 13 mg/dL (9-20); Calcium 8.5 mg/dL (8.4-10.2); Carbon Dioxide 25 mmol/L (22-30); Chloride 109 mmol/L (98-107); Glucose 67 mg/dL (74-99); Magnesium 1.7 mg/dL (1.6-2.3); Non-African American GFR(MDRD) 58 (>60 ml/min/1.73 sqM); Potassium 3.8 mmol/L (3.5-5.1); Sodium 146 mmol/L (137-145); Total Bilirubin 0.6 mg/dL (0.2-1.3); Total Protein 5.3 g/dL (6.3-8.2)
[2017-05-15] MEDS: PIPERACILLIN-TAZOBACTAM 3.375 GM in DEXTROSE/WATER 1 50ML.BAG IVPB SCH (09:42)
--- NOTE | 2017-05-15 10:33 | P.PN ---
Subjective Patient is seen in follow-up for acute kidney injury. Renal function has significantly improved since admission. Hyperkalemia has resolved. Baseline creatinine is 1. Patient's currently resting in bed. He is not a very reliable historian. He is off all IV fluids but his sodium level is up to 146 again today. Oral intake remains poor. He is currently being treated for pneumonia as well as E. coli UTI. Vital signs are stable. General: The patient appeared well nourished and normally developed. HEENT: Head exam is unremarkable. Neck is without jugular venous distension. LUNGS: Lungs are clear to auscultation and percussion. Breath sounds decreased. HEART: Rate and Rhythm are regular. First and second heart sounds normal. No murmurs, rubs or gallops. ABDOMEN: Abdominal exam reveals normal bowel sounds. Non-tender and non- distended. No evidence of peritonitis. EXTREMITITES: No clubbing, cyanosis, or edema. Objective - Vital Signs Vital signs: Vital Signs Temp 98.4 F 05/15/17 07:00 Pulse 120 H 05/15/17 07:46 Resp 20 05/15/17 07:00 BP 154/97 05/15/17 07:00 Pulse Ox 100 05/15/17 07:38 Intake & Output 05/14/17 05/15/17 05/15/17 18:59 06:59 18:59 Intake Total 50 150 Balance 50 150 Weight 62 kg Intake: Intake, IV Titration 50 50 Amount Piperacillin-Tazobactam 3 50 50 .375 gm In Dextrose/Water 1 50ml.bag @ 12.5 mls/hr IVPB Q8HR [facility] Rx#: [id number] Oral 100 Other: Voiding Method Diaper Diaper Diaper Incontinent Incontinent Incontinent # Voids 4 # Bowel Movements 2 - Labs CBC & Chem 7: 05/15/17 07:14 05/15/17 07:14 Labs: Abnormal Lab Results - Last 24 Hours (Table) 05/15/17 05/15/17 Range/Units 07:14 07:14 WBC 21.1 H (3.8-10.6) k/uL RBC 3.69 L (4.30-5.90) m/uL Hgb 11.6 L (13.0-17.5) gm/dL Hct 36.0 L (39.0-53.0) % RDW 16.1 H (11.5-15.5) % Plt Count 597 H (150-450) k/uL Sodium 146 H (137-145) mmol/L Chloride 109 H (98-107) mmol/L Glucose 67 L (74-99) mg/dL Alkaline Phosphatase 157 H (38-126) U/L Total Protein 5.3 L (6.3-8.2) g/dL Albumin 2.5 L (3.5-5.0) g/dL Assessment and Plan Plan: Assessment: #1. Nonoliguric acute kidney injury secondary to ischemic ATN due to hemodynamic instability and diuresis. There may have also been a component of urinary retention. Improved. #2. Hyperkalemia secondary to acute kidney injury and potassium supplementation. Improved with medical treatment. #3. UTI. Urine culture positive for gram-negative bacilli - E. coli. #4. Hypernatremia secondary to lack of oral water intake. #5. Cecal dilation with concern of abscess. Plan: Resume D5W to be run at 50 mL an hour. Patient did pass swallow eval and will be starting diet today. Avoid nephrotoxic agents and hypotensive episodes. Potential discharge to ECF soon.
[2017-05-15] MEDS: DEXTROSE 5% IN WATER 1,000 ML IV SCH (10:51)
[2017-05-15] MEDS: AMMONIUM LACTATE 12% LOTION 225 GM BTL TOPICAL SCH ×2 (10:52→20:10)
[2017-05-15] MEDS: METOPROLOL TARTRATE 50 MG TAB PO SCH ×2 (10:52→20:26)
[2017-05-15] MEDS: CLOTRIMAZOLE/BETAMETH 1-0.05% CREAM 45 GM TUBE TOPICAL SCH ×2 (10:52→20:10)
[2017-05-15] MEDS: BACITRACIN/POLYMYX 500-10,000 UNIT/GM OPHTH OINT 3.5 GM TUBE BOTH EYES SCH ×4 (10:52→20:10)
[2017-05-15] MEDS: LORATADINE 10 MG TAB PO SCH (10:53)
[2017-05-15] MEDS: CLOPIDOGREL 75 MG TAB PO SCH (10:53)
[2017-05-15] MEDS: SENNOSIDES-DOCUSATE SODIUM 1 EACH TAB PO SCH (20:03)
[2017-05-16] MEDS: LORazepam 2 MG/ML SYRINGE IV PRN ×2 (01:44→21:10)
[2017-05-16] MEDS: ENOXAPARIN 40 MG/0.4 ML SYRINGE SQ SCH (06:20)
[2017-05-16 07:09] LABS: Anion Gap 9 mmol/L; Blood Urea Nitrogen 11 mg/dL (9-20); Calcium 7.9 mg/dL (8.4-10.2); Carbon Dioxide 23 mmol/L (22-30); Chloride 113 mmol/L (98-107); Glucose 72 mg/dL (74-99); Non-African American GFR(MDRD) >60 (>60 ml/min/1.73 sqM); Sodium 145 mmol/L (137-145)
[2017-05-16] MEDS ORDERED: Potassium Replacement Protocol 1 EACH MISC MISCELLANE PRN (07:47)
[2017-05-16] MEDS: BUDESONIDE 0.5 MG/2 ML NEBU INHALATION SCH ×2 (08:11→19:25)
[2017-05-16] MEDS: IPRATROPIUM-ALBUTEROL 3 ML NEB INHALATION SCH ×3 (08:11→19:25)
[2017-05-16] MEDS: BACITRACIN/POLYMYX 500-10,000 UNIT/GM OPHTH OINT 3.5 GM TUBE BOTH EYES SCH ×4 (08:52→21:30)
[2017-05-16] MEDS: CLOTRIMAZOLE/BETAMETH 1-0.05% CREAM 45 GM TUBE TOPICAL SCH ×2 (08:52→20:14)
[2017-05-16] MEDS: DEXTROSE 5% IN WATER 1,000 ML IV SCH (08:52)
[2017-05-16] MEDS: LORATADINE 10 MG TAB PO SCH (08:53)
[2017-05-16] MEDS: METOPROLOL TARTRATE 50 MG TAB PO SCH ×2 (08:53→20:15)
[2017-05-16] MEDS: CLOPIDOGREL 75 MG TAB PO SCH (08:53)
[2017-05-16] MEDS: AMMONIUM LACTATE 12% LOTION 225 GM BTL TOPICAL SCH ×2 (08:54→20:23)
--- NOTE | 2017-05-16 09:07 | P.PN ---
Subjective Patient seen and evaluated examined during the rounds on 05/16/2017, patient is awake but remains extremely confused, patient is currently going swallow evaluation even with honey thick nectar and half a spoon very slow patient continued to have coughing spells suggestive of ongoing aspiration, on examination patient does have coarse breath sounds however no clear hearing gurgling is seen or noted, given presence of significant aspiration patient will need to be reevaluated for alternative means of nutrition support 05/08/17- This is an 82-year-old male patient who came into the emergency department on 05/02/2017 from an extended care facility. Patient was noted to have a potassium of 6.4 at the extended care facility and therefore they sent him over. The patient did not have any further complaints and he has intermittent confusion which is his baseline. EKG performed in the emergency room did show sinus rhythm with occasional PVCs, patient had no ST segment elevation or depression or T-wave abnormalities. The patient was put on lactulose. Hypertension is also being worked up for possible rectal mass and will undergo colonoscopy when stable with Dr. Piña. All labs and reports have been reviewed. Patient is being seen and examined today on the sixth floor for pulmonary services related to progression of shortness of breath over the last few days. He has had a cough however denies any congestion. Nursing staff has denied any sputum production. He is alert and oriented 1 with intermittent confusion. Has been afebrile. Currently is on 3 L of supplemental oxygen via nasal cannula. It is unclear if the patient utilized oxygen in the extended care facility setting. Patient is also on a mechanical soft diet with aspiration precautions. 05/09/17- this patient is being evaluated and examined and seen on rounds today. All labs and reports were reviewed. The patient hyperkalemia has improved. The white blood cell count has come down to 12.8. Patient was noted to have increased lethargy and decreased cognition yesterday afternoon therefore a neurology consult was initiated. Patient is going for a CT of the brain as well as an EEG today. Patient's speech is noted to be slightly slurred and mumbled. Overnight he was noted to refuse care, had increase in agitation, and was refusing food and fluids. and primary care were updated. 05/10/17- this patient is being evaluated exam and seen today on the selective care unit. All labs and reports have been reviewed. Patient appears more awake today than previously. Patient did undergo a CT of the brain and EEG yesterday. Neurology and nephrology is on consult. Patient's prognosis is guarded and he has multiple comorbidities. Upon examination the patient's resting up in bed on room air states he occasionally has shortness of breath with exertion. He denies any cough or congestion at this time. Discharge planning is in process and appears the patient will go back to extended care facility when discharged. 05/11/17- patient is being seen in evaluated and examined today on the fifth floor. Patient is known to be slightly tired however is easily awoken. Currently he is resting up in bed on room air. Patient noticed to have a faint light red flat erythema rash to his right lateral chest. He denies any itching or pain. The area is small and diffuse. We will continue to monitor this. He does have Lotrisone cream for the area. On examination he denies any shortness of breath cough or congestion. Family at bedside updated on plan of care. 05/12/17- patient is being seen examined and evaluated today on the floor. The patient continues to be tired however is easily aroused upon examination. No further progression is noted of his rash to the right lateral chest. On examination patient's resting up in bed on room air. Shortness of breath as noted with exertion. Intermittent cough. He is afebrile, no overnight events. 05/13/17- patient is being seen examined and evaluated today on the floor. On examination the patient is resting in bed on room air, continues with shortness of breath on exertion. According to the nursing staff during breakfast the patient was coughing and choking and has dysphagia diet. Continue swallow evaluation with speech therapy has been ordered. Objective - Vital Signs Vital signs: Vital Signs Temp 98 F 05/16/17 07:00 Pulse 113 H 05/16/17 08:22 Resp 16 05/16/17 07:00 BP 151/90 05/16/17 07:00 Pulse Ox 93 L 05/16/17 07:00 Intake & Output 05/15/17 05/16/17 05/16/17 18:59 06:59 18:59 Intake Total 220 Balance 220 Weight 61 kg Intake: Intake, IV Titration 200 Amount Dextrose 5% in Water 1, 200 000 ml @ 50 mls/hr IV . Q20H [facility] Rx#:[id number] Oral 20 Other: Voiding Method Diaper Diaper Incontinent Incontinent # Voids 1 1 - Exam GENERAL EXAM: Alert, intermittent confusion noted which is baseline, comfortable in no apparent distress. HEAD: Normocephalic. EYES: Normal reaction of pupils, equal size. NOSE: Clear with pink turbinates. THROAT: No erythema or exudates. NECK: No masses, no JVD. CHEST: No chest wall deformity. LUNGS: Equal air entry with no crackles, wheeze, rhonchi or dullness. Breath sounds decreased bilaterally. CVS: S1 and S2 normal with no audible mumurs, regular rhythm. ABDOMEN: No hepatosplenomegaly, normal bowel sounds, no guarding or rigidity. EXTREMITIES: +2 edema noted, pedal pulses palpable. Chronic skin changes noted , bilateral legs wrapped SKIN: Multiple skin tears, flat erythema diffuse rash to right lateral chest, cream applied CENTRAL NERVOUS SYSTEM: No focal deficits, moves all 4 extremities. - Labs CBC & Chem 7: 05/15/17 07:14 05/16/17 06:37 Labs: Abnormal Lab Results - Last 24 Hours (Table) 05/16/17 Range/Units 06:37 Potassium 3.0 L* (3.5-5.1) mmol/L Chloride 113 H (98-107) mmol/L Glucose 72 L (74-99) mg/dL Calcium 7.9 L (8.4-10.2) mg/dL Assessment and Plan Plan: Urinary tract infection, culture positive for gram negatives bacilli and E. coli , which appears to be ESBL, IVS adjust antibiotics Acute hypoxic respiratory failure, with recurrent aspiration Hyperkalemia, improved Acute renal failure Sepsis with fever, gram-negative Hypernatremia likely related to decreased oral intake Probable rectal mass, currently being worked up Diarrhea History of CVA Plan As dictated above consider alternate medius mode of nutritional support Patient is currently being worked up for discharge planning to extended care facility. Discharge will be held until infectious disease can recommend antibiotics for possible ESBL in the urine. Currently patient is being monitored off on any antibiotics as per ID recommendations, we'll follow and observe Medications have been reviewed and will be continued as ordered. Patient's prognosis is guarded. Patient known to be resistive to care and medical treatment. Continue to monitor electrolytes. Patient will undergo colonoscopy once cleared, in the outpatient setting. Continue with pulmonary hygiene, coughing and deep breathing exercises, and supportive care. Supplemental oxygen to maintain oxygen saturations of 92% or better. Continue nebulizer treatments in the form of DuoNeb and budesonide. . GI and DVT prophylaxis. Appreciate consults recommendations. We will continue to monitor labs/results and adjust treatment as necessary. Further recommendations pending. Time with Patient: Greater than 30
--- NOTE | 2017-05-16 10:07 | P.PN ---
Subjective Patient is seen in follow-up for acute kidney injury. Renal function has significantly improved since admission. Hyperkalemia has resolved. Baseline creatinine is 1. Patient's currently resting in bed. He is not a very reliable historian. Oral intake remains poor. He is currently being treated for pneumonia as well as E. coli UTI. Vital signs are stable. General: The patient appeared well nourished and normally developed. HEENT: Head exam is unremarkable. Neck is without jugular venous distension. LUNGS: Lungs are clear to auscultation and percussion. Breath sounds decreased. HEART: Rate and Rhythm are regular. First and second heart sounds normal. No murmurs, rubs or gallops. ABDOMEN: Abdominal exam reveals normal bowel sounds. Non-tender and non- distended. No evidence of peritonitis. EXTREMITITES: No clubbing, cyanosis, or edema. Objective - Vital Signs Vital signs: Vital Signs Temp 98 F 05/16/17 07:00 Pulse 113 H 05/16/17 08:22 Resp 16 05/16/17 07:00 BP 151/90 05/16/17 07:00 Pulse Ox 93 L 05/16/17 07:00 Intake & Output 05/15/17 05/16/17 05/16/17 18:59 06:59 18:59 Intake Total 220 Balance 220 Weight 61 kg 61 kg Intake: Intake, IV Titration 200 Amount Dextrose 5% in Water 1, 200 000 ml @ 50 mls/hr IV . Q20H [facility] Rx#:[id number] Oral 20 Other: Voiding Method Diaper Diaper Incontinent Incontinent # Voids 1 1 - Labs CBC & Chem 7: 05/15/17 07:14 05/16/17 06:37 Labs: Abnormal Lab Results - Last 24 Hours (Table) 05/16/17 Range/Units 06:37 Potassium 3.0 L* (3.5-5.1) mmol/L Chloride 113 H (98-107) mmol/L Glucose 72 L (74-99) mg/dL Calcium 7.9 L (8.4-10.2) mg/dL Assessment and Plan Plan: Assessment: #1. Nonoliguric acute kidney injury secondary to ischemic ATN due to hemodynamic instability and diuresis. There may have also been a component of urinary retention. Improved. #2. Hyperkalemia secondary to acute kidney injury and potassium supplementation. Improved with medical treatment. #3. UTI. Urine culture positive for gram-negative bacilli - E. coli. #4. Hypernatremia secondary to lack of oral water intake. #5. Cecal dilation with concern of abscess. #6. Hypokalemia secondary to lack of oral intake. Magnesium also on the lower side. Plan: Maintain D5W to be run at 50 mL an hour. Replace potassium. 80 mEq today. Replace magnesium. 2 g IV today. Avoid nephrotoxic agents and hypotensive episodes. Potential discharge to ECF soon.
[2017-05-16] MEDS: POTASSIUM CHLORIDE 10 MEQ in WATER FOR INJECTION 1 100ML.BAG IVPB SCH ×2 (10:29→16:08)
[2017-05-16] MEDS ORDERED: POTASSIUM CHLORIDE 20 MEQ, LIDOCAINE 2% INJ 20 MG in SODIUM CHLORIDE 0.9% 100 ML IVPB ONE (10:30)
[2017-05-16] MEDS: MAGNESIUM SULFATE-D5W PMX 1 GM in DEXTROSE/WATER 1 100ML.BAG IVPB SCH ×2 (14:15→21:29)
[2017-05-16] MEDS: POTASSIUM CHLORIDE 20 MEQ, LIDOCAINE 2% INJ 20 MG in SODIUM CHLORIDE 0.9% 100 ML IVPB SCH ×3 (16:08→19:18)
[2017-05-16] MEDS: SENNOSIDES-DOCUSATE SODIUM 1 EACH TAB PO SCH (20:15)
--- NOTE | 2017-05-16 20:52 | P.PN ---
Subjective Principal diagnosis: sepsis 82-year-old male resident of [facility] was found evidence of multiple abnormal labs included acute renal failure and hyperkalemia. The patient was transferred from the [facility] care [facility] for further intervention. Infectious diseases consultation was requested when the patient developed a high-grade fever reportedly over 104. the consult was initiated as the patient became febrile, hypotensive and tachycardic. The patient is a poor historian. The patient today is a bit more comfortable than reported last evening. He relates that he has minimal hunger. His mouth is dry. As related lactic acid was drawn which was elevated and had evidence of leukocytosis, the patient was given fluids and antibiotic therapy with Zosyn given the concerns to urinary system as well as potential abdominal source since he was having some diarrhea. As the patient is slightly more comfortable. Has been seen by surgery and is being monitored for a potential colonoscopy in the future. Regarding ongoing treatment for the colonic abscess. No complaints except for fatigue.. Objective - Vital Signs Vital signs: Vital Signs Temp 99.5 F 05/16/17 15:00 Pulse 139 H 05/16/17 19:47 Resp 16 05/16/17 15:00 BP 145/80 05/16/17 15:00 Pulse Ox 96 05/16/17 15:00 Intake & Output 05/16/17 05/16/17 05/17/17 06:59 18:59 06:59 Intake Total 220 500 Balance 220 500 Weight 61 kg 61 kg Intake: Intake, IV Titration 200 500 Amount Dextrose 5% in Water 1, 200 400 000 ml @ 50 mls/hr IV . Q20H [facility] Rx#:[id number] Potassium Chloride 20 meq 100 Lidocaine 2% Inj 20 mg In Sodium Chloride 0.9% 100 ml @ 55.5 mls/hr IVPB Q2HR [facility] Rx#:[id number] Oral 20 Other: Voiding Method Diaper Diaper Incontinent Incontinent # Voids 1 - Exam 82-year-old male poor historian HEENT: Anicteric conjunctiva are pink and mildly crusty nasal mucosa grossly intact without significant lesions, there is no thrush but the oral cavity is very dry Neck: The neck is supple without significant lymphadenopathy or thyromegaly. Lungs: There is symmetrical air entry. Scattered expiratory wheezes are noted. Heart: Irregular with soft S4 no distinct murmur click or rub Abdomen: Positive bowel sounds soft and nontender without palpable masses or organomegaly. There was no guarding or rebound. Extremities: The extremities have some minimal trace edema but no significant lesions are seen in the upper extremities. The lower extremities have evidence of the extensive skin lesion the bilateral lower extremities. There is a healing left hip incision which is without erythema crepitance or fluctuance. Neuro: Arousable, speech content is poor and inconsistent can poorly understandable he however does move arms and legs spontaneously - Labs CBC & Chem 7: 05/15/17 07:14 05/16/17 06:37 Labs: Abnormal Lab Results - Last 24 Hours (Table) 05/16/17 Range/Units 06:37 Potassium 3.0 L* (3.5-5.1) mmol/L Chloride 113 H (98-107) mmol/L Glucose 72 L (74-99) mg/dL Calcium 7.9 L (8.4-10.2) mg/dL Laboratory Results WBC 21.1 k/uL (3.8-10.6) H 05/15/17 07:14 RBC 3.69 m/uL (4.30-5.90) L 05/15/17 07:14 Hgb 11.6 gm/dL (13.0-17.5) L 05/15/17 07:14 Hct 36.0 % (39.0-53.0) L 05/15/17 07:14 MCV 97.6 fL (80.0-100.0) 05/15/17 07:14 MCH 31.3 pg (25.0-35.0) 05/15/17 07:14 MCHC 32.1 g/dL (31.0-37.0) 05/15/17 07:14 RDW 16.1 % (11.5-15.5) H 05/15/17 07:14 Plt Count 597 k/uL (150-450) H 05/15/17 07:14 Neutrophils % 79 % 05/12/17 06:54 Lymphocytes % 10 % 05/12/17 06:54 Monocytes % 5 % 05/12/17 06:54 Eosinophils % 3 % 05/12/17 06:54 Basophils % 0 % 05/12/17 06:54 Neutrophils # 8.6 k/uL (1.3-7.7) H 05/12/17 06:54 Lymphocytes # 1.1 k/uL (1.0-4.8) 05/12/17 06:54 Monocytes # 0.6 k/uL (0-1.0) 05/12/17 06:54 Eosinophils # 0.3 k/uL (0-0.7) 05/12/17 06:54 Basophils # 0.1 k/uL (0-0.2) 05/12/17 06:54 Hypochromasia Slight 05/15/17 07:14 Anisocytosis Slight 05/15/17 07:14 Macrocytosis Slight 05/15/17 07:14 Sodium 145 mmol/L (137-145) 05/16/17 06:37 Potassium 3.0 mmol/L (3.5-5.1) L* 05/16/17 06:37 Chloride 113 mmol/L (98-107) H 05/16/17 06:37 Carbon Dioxide 23 mmol/L (22-30) 05/16/17 06:37 Anion Gap 9 mmol/L 05/16/17 06:37 BUN 11 mg/dL (9-20) 05/16/17 06:37 Creatinine 0.98 mg/dL (0.66-1.25) 05/16/17 06:37 Est GFR (MDRD) Af Amer >60 (>60 ml/min/1.73 sqM) 05/16/17 06:37 Est GFR (MDRD) Non-Af >60 (>60 ml/min/1.73 sqM) 05/16/17 06:37 Glucose 72 mg/dL (74-99) L 05/16/17 06:37 POC Glucose (mg/dL) 98 mg/dL (75-99) 05/04/17 22:36 POC Glu Supervisor [employer] ID Darryl Fink 05/04/17 22:36 Lactic Ac Sepsis Rflx Y 05/05/17 00:06 Plasma Lactic Acid Froy 1.3 mmol/L (0.7-2.0) 05/05/17 03:21 Calcium 7.9 mg/dL (8.4-10.2) L 05/16/17 06:37 Magnesium 1.6 mg/dL (1.6-2.3) 05/16/17 06:37 Total Bilirubin 0.6 mg/dL (0.2-1.3) 05/15/17 07:14 AST 34 U/L (17-59) 05/15/17 07:14 ALT 35 U/L (21-72) 05/15/17 07:14 Alkaline Phosphatase 157 U/L (38-126) H 05/15/17 07:14 Total Creatine Kinase 125 U/L (55-170) 05/02/17 17:46 CK-MB (CK-2) 3.7 ng/mL (0.0-2.4) H* 05/02/17 17:46 CK-MB (CK-2) Rel Index 3.0 05/02/17 17:46 Troponin I 0.029 ng/mL (0.000-0.034) 05/02/17 17:46 Total Protein 5.3 g/dL (6.3-8.2) L 05/15/17 07:14 Albumin 2.5 g/dL (3.5-5.0) L 05/15/17 07:14 Urine Color Yellow 05/02/17 19:18 Urine Appearance Cloudy (Clear) 05/02/17 19:18 Urine pH 6.0 (5.0-8.0) 05/02/17 19:18 Ur Specific [place] 1.011 (1.001-1.035) 05/02/17 19:18 Urine Protein 1+ (Negative) H 05/02/17 19:18 Urine Glucose (UA) Negative (Negative) 05/02/17 19:18 Urine Ketones Negative (Negative) 05/02/17 19:18 Urine Blood Moderate (Negative) H 05/02/17 19:18 Urine Nitrite Negative (Negative) 05/02/17 19:18 Urine Bilirubin Negative (Negative) 05/02/17 19:18 Urine Urobilinogen 3.0 mg/dL (<2.0) 05/02/17 19:18 Ur Leukocyte Esterase Large (Negative) H 05/02/17 19:18 Urine RBC 71 /hpf (0-5) H 05/02/17 19:18 Urine WBC 155 /hpf (0-5) H 05/02/17 19:18 Urine WBC Clumps Few /hpf (None) H 05/02/17 19:18 Urine Bacteria Few /hpf (None) H 05/02/17 19:18 Urine Mucus Rare /hpf (None) H 05/02/17 19:18 C. difficile (EIA) Intrp Negative (Negative) 05/03/17 15:54 Microbiology 05/04/17 23:29 Blood Blood Culture - Final No Growth after 144 hours 05/03/17 17:57 Blood Blood Culture - Final No Growth after 144 hours 05/03/17 03:00 Urine,Catheterized Urine Culture - Final Escherichia coli Assessment and Plan (1) Gram-negative sepsis with organ dysfunction Narrative/Plan: 82-year-old male transferred from [facility] care facility for alteration of his status. We'll request performed there was evidence of leukocytosis, acute renal failure, hyperkalemia. With this he was transferred to Hospital and is now received intervention and has been seen by nephrology. Because of his illness computed tomography scan of the abdomen and pelvis was performed showing evidence of the significant cecal dilatation and concerns to infection and abscess at that site. The patient has been seen by surgery and will plan colonoscopy when he is medically cleared. At the time of the consult fluid bolus was given since his computed tomography scan did not show evidence of heart failure. Antipyretics were given. The patient defervesced and his significant tachycardia and hypotension resolved. The patient has remained on selective care. His CODE STATUS is full, and apparently this has been addressed with the family and they do not yet understand the current ramifications of his illness. Ongoing discussion shall be held for more appropriate CODE STATUS. He has had a significant leukocytosis which is improved today. There is evidence of urine culture with E. coli. His fever has resolved. Antibiotic therapy with Zosyn was initiated with concerns to the abdominal sepsis. We will also give coverage for his urinary tract infection based on prior cultures. He does have some crustiness to his eyes and Polysporin was given with improvement. His legs are wrapped continue the ulcer on the dorsum of the right foot. Local wound care as changed to medical Honey to try to debrided this better. Continue to wrap the legs. The dressing changes can be performed every other day. Assessment followed by surgery. Will need outpatient endoscopic evaluation if possible. As he becomes ready for transfer from the hospital will be able to transition to ciprofloxacin and Flagyl to complete another 10 days of therapy at the extended care facility. Will need close surgical follow-up. Status: Acute (2) Acute renal failure Status: Acute (3) Hyperkalemia Status: Acute (4) UTI (urinary tract infection) Status: Acute
[2017-05-16] MEDS ORDERED: METOPROLOL TARTRATE 50 MG TAB PO STA (21:18)
[2017-05-17] MEDS: ACETAMINOPHEN TAB 325 MG TAB PO PRN (00:59)
[2017-05-17 02:45] LABS: Magnesium 2.3 mg/dL (1.6-2.3); Potassium 3.9 mmol/L (3.5-5.1)
[2017-05-17] MEDS: ENOXAPARIN 40 MG/0.4 ML SYRINGE SQ SCH (05:53)
[2017-05-17] MEDS: DEXTROSE 5% IN WATER 1,000 ML IV SCH ×2 (07:15→21:22)
[2017-05-17] MEDS: IPRATROPIUM-ALBUTEROL 3 ML NEB INHALATION SCH ×3 (08:15→19:33)
[2017-05-17] MEDS: BUDESONIDE 0.5 MG/2 ML NEBU INHALATION SCH ×2 (08:15→19:33)
--- NOTE | 2017-05-17 08:18 | P.PN ---
Subjective Principal diagnosis: Disorientation poor nutrition. This is a continue pressure 82-year-old white male essentially admitted for altered mental status with acute renal failure. The patient was found to have element of dilation of the colon and possible abscess. Colonoscopy is suggested as an outpatient after surgical evaluation. Multiple consultants on the case. He seems still considerably weak and is having elements of tachycardia. I will increase his metoprolol to 50 mg 3 times a day. He also had a slight fever spike yesterday. He still continues to be somewhat tachycardic. We will transition him to Cipro and Flagyl as per infectious disease. I do suspect he is having maculopapular rash related to antibiotic treatment and overall medication load. Objective - Vital Signs Vital signs: Vital Signs Temp 99.0 F 05/17/17 05:00 Pulse 137 H 05/16/17 22:24 Resp 20 05/16/17 22:24 BP 160/95 05/16/17 22:24 Pulse Ox 96 05/16/17 22:24 Intake & Output 05/16/17 05/17/17 05/17/17 18:59 06:59 18:59 Intake Total 500 200 Balance 500 200 Weight 61 kg 60.5 kg Intake: Intake, IV Titration 500 200 Amount Dextrose 5% in Water 1, 400 000 ml @ 50 mls/hr IV . Q20H [facility] Rx#:[id number] Magnesium Sulfate-D5w Pmx 100 1 gm In Dextrose/Water 1 100ml.bag @ 100 mls/hr IVPB Q1H [facility] Rx#: [id number] Potassium Chloride 20 meq 100 100 Lidocaine 2% Inj 20 mg In Sodium Chloride 0.9% 100 ml @ 55.5 mls/hr IVPB Q2HR [facility] Rx#:[id number] Other: Voiding Method Diaper Diaper Incontinent Incontinent # Voids 2 - Constitutional General appearance: Present: thin - EENT Eyes: Absent: abnormal pupil - Respiratory Respiratory: bilateral: diminished - Cardiovascular Heart sounds: normal: S1, S2 - Gastrointestinal General gastrointestinal: Present: soft. Absent: tenderness - Integumentary Integumentary: Present: rash - Musculoskeletal Musculoskeletal: Present: generalized weakness - Labs CBC & Chem 7: 05/15/17 07:14 05/17/17 02:22 Assessment and Plan (1) Acute renal failure Status: Acute (2) Gram-negative sepsis with organ dysfunction Status: Acute (3) CVA (cerebral vascular accident) Status: Acute Plan: Given his overall weakness, we will follow closely with consultants today. Check CBC and CMP in a.m. Anticipate transfer to ECF in the next 48-[address] Hunt's group will be covering for the weekend. Time with Patient: Less than 30
--- NOTE | 2017-05-17 08:30 | PN ---
DATE OF SERVICE: 05/15/2017 Franco Hill is an 82-year-old male seen, evaluated and examined on fifth floor. Patient continued to be somnolent, lethargic, but arousable. Patient is considered for barium swallow study later on. He is being observed off antibiotics. ID service is following. He does open eyes and follows simple commands. His vitals include blood pressure 150/97, respiratory rate 20, pulse 120, temperature 98, sats 100%. HEENT: Otherwise unremarkable. Oral mucosa is moist. NECK: Supple without lymphadenopathy, jugular venous distention or carotid bruits. LUNGS: Bilateral coarse breath sounds present. A few scattered crackles. HEART: Regular rate and rhythm. ABDOMEN: Soft. EXTREMITIES: Covered with dressing, chronic skin changes. Erythema, edema, ecchymosis present. LABORATORY DATA: Reviewed. White cell count is 21,000, hemoglobin 11 and hematocrit 36. Platelets 597,000. BUN and creatinine 13 and 1.2. Sodium 146. IMPRESSION: 1. Urinary tract infection related to ESBL Escherichia coli. Infectious Disease service is following. Recommended to observe patient off of antibiotics. 2. Intermittent silent aspiration. The barium swallow performed yesterday reveals some intermittent swallow; however, able to tolerate honey thick fluid though. 3. Acute hypoxic respiratory failure and multifactorial. 4. Electrolyte imbalance with hypernatremia, hyperkalemia overall stable. 5. Acute on chronic renal failure stable at this point of time. Plan and recommendation as above. Continue supportive care. Continue to monitor aspiration precautions. Prognosis overall is guarded. Will follow. [facility]
[2017-05-17 08:34] LABS: Anion Gap 10 mmol/L; Blood Urea Nitrogen 10 mg/dL (9-20); Calcium 7.9 mg/dL (8.4-10.2); Carbon Dioxide 18 mmol/L (22-30); Chloride 115 mmol/L (98-107); Glucose 80 mg/dL (74-99); Magnesium 2.1 mg/dL (1.6-2.3); Non-African American GFR(MDRD) >60 (>60 ml/min/1.73 sqM); Sodium 143 mmol/L (137-145)
[2017-05-17 08:35] LABS: Potassium 4.6 mmol/L (3.5-5.1)
[2017-05-17] MEDS ORDERED: CIPROFLOXACIN HCL 500 MG TAB PO SCH (09:00)
[2017-05-17] MEDS: METOPROLOL TARTRATE 50 MG TAB PO SCH ×3 (09:13→21:17)
[2017-05-17] MEDS: CLOTRIMAZOLE/BETAMETH 1-0.05% CREAM 45 GM TUBE TOPICAL SCH ×2 (09:13→21:17)
[2017-05-17] MEDS: BACITRACIN/POLYMYX 500-10,000 UNIT/GM OPHTH OINT 3.5 GM TUBE BOTH EYES SCH ×4 (09:13→21:17)
[2017-05-17] MEDS: AMMONIUM LACTATE 12% LOTION 225 GM BTL TOPICAL SCH ×2 (09:13→21:17)
[2017-05-17] MEDS: metroNIDAZOLE 500 MG TAB PO SCH ×2 (09:13→17:53)
[2017-05-17] MEDS: CLOPIDOGREL 75 MG TAB PO SCH (09:13)
[2017-05-17] MEDS: LORATADINE 10 MG TAB PO SCH (09:14)
--- NOTE | 2017-05-17 09:30 | P.PN ---
Progress Note - Text 72-year-old male with a known history of hypertension, hyperlipidemia , diabetes type 2 and previous history of smoking and recently being worked up for malignancy presenting for evaluation of low back pain and left thigh pain. Patient was recently diagnosed with lytic lesions to his lumbar spine and scapula and metastatic lesions to the liver and lung. He is continued to have worsening pain since these diagnoses have been made. Patient initially went to orthopedic clinic about 14 weeks ago for back pain and underwent physical therapy and pain management. Patient recently had MRI about 2 weeks ago which showed multiple metastatic lesions and lighting bone lesions. Patient is supposed to follow with Dr. Stevenson tomorrow. The patient called his primary care physician Dr. Sánchez who after discussion with his Hem/Onc specialist Dr. Bone determined that he should be admitted for pain management, PET scan, and possible initiation of radiation treatment. He denies LE weakness, bladder/bowel incontinence, saddle anesthesia, fever, chills. 05/14/2017 Patient's lower back pain improved with pain medications. Oncology has been consulted. No fever no chills. Patient does have increased leukocytosis today. Denied any cough or sputum production. No dysuria. No complaints of chest pain. No worsening short of breath. 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 Imaging studies including MRI and CT scans from [place] will be obtained. 05/15/2017 Patient is still complaining of back pain. [facility] were obtained including MRI of the lumbar spine. Patient was referred to interventional radiology for liver biopsy but suggested lung biopsy is treated. Pulmonary was consulted for bronchoscopy and biopsy. Patient was started on dexamethasone. Radiation oncology has been consulted as well for radiation palliative. Leukocytosis improved today. No fever no chills. No chest pain. No worsening short of breath. Denied any nausea vomiting or abdominal pain Patient seen and evaluated examined on 05/16/2017 he is slightly confused but breathing comfortably does complain of severe back pain he is currently nothing by mouth for possible bronchoscopy and biopsy later on today, I have explained the procedure to him review the computed tomography scan with further recommendations pending Patient seen and evaluated examined during the rounds he is awake but remains nonverbal and noncommunicative speech and swallow are following this patient he is on nectar thick diet, still having issues and problems with leukocytosis ongoing sepsis and tachycardia beta blockers are being adjusted, patient remains on the DVT and peptic ulcer disease prophylaxis, and the antibiotic Cipro, patient is gently being rehydrated as well given presence of leukocytosis will do the sepsis workup repeat urine and blood and repeat chest x -ray Objective - Vital Signs Vital signs: Vital Signs Temp 97.3 F L 05/17/17 07:00 Pulse 105 H 05/17/17 07:55 Resp 20 05/17/17 07:00 BP 122/71 05/17/17 07:00 Pulse Ox 95 05/17/17 07:00 Intake & Output 05/16/17 05/17/17 05/17/17 18:59 06:59 18:59 Intake Total 550 800 Balance 550 800 Intake: IV 150 Intake, IV Titration 400 800 Amount Sodium Chloride 0.9% 1, 400 800 000 ml @ 50 mls/hr IV . Q20H ON LICENSE OF [facility] Rx#:[id number] Other: Voiding Method Incontinent Toilet Urinal # Voids 2 - Exam PHYSICAL EXAMINATION: Patient is lying in the bed comfortably, no acute distress, awake alert and oriented.. HEENT: Normocephalic. Neck is supple. Pupils reactive. Nostrils clear. Oral cavity is moist. Ears reveal no drainage. Neck reveals no JVD, carotid bruits, or thyromegaly. CHEST EXAMINATION: Trachea is central. Symmetrical expansion. Minimal crackles of the right base. No wheezing. CARDIAC: Normal S1, S2 with no gallops. No murmurs ABDOMEN: Soft. Bowel sounds normal. No organomegaly. No abdominal bruits. Extremities reveal no edema. No clubbing or cyanosis Neurologically awake, alert, oriented x3 with well-coordinated movements. Skin: no rash or skin lesions Musculoskeletal: no joint swelling or deformity. - Labs CBC & Chem 7: 05/17/17 07:44 05/17/17 07:44 Labs: Abnormal Lab Results - Last 24 Hours (Table) 05/16/17 05/16/17 05/16/17 Range/Units 10:07 11:04 20:26 WBC (3.8-10.6) k/uL Neutrophils # (1.3-7.7) k/uL Sodium (137-145) mmol/L Carbon Dioxide (22-30) mmol/L BUN 28 H (9-20) mg/dL Glucose (74-99) mg/dL POC Glucose (mg/dL) 243 H 273 H (75-99) mg/dL Calcium (8.4-10.2) mg/dL AST (17-59) U/L ALT (21-72) U/L Alkaline Phosphatase (38-126) U/L Total Protein (6.3-8.2) g/dL Albumin (3.5-5.0) g/dL 05/17/17 05/17/17 05/17/17 Range/Units 07:44 07:44 07:51 WBC 12.3 H (3.8-10.6) k/uL Neutrophils # 10.2 H (1.3-7.7) k/uL Sodium 132 L (137-145) mmol/L Carbon Dioxide 19 L (22-30) mmol/L BUN 26 H (9-20) mg/dL Glucose 258 H (74-99) mg/dL POC Glucose (mg/dL) 237 H (75-99) mg/dL Calcium 7.8 L (8.4-10.2) mg/dL AST 164 H (17-59) U/L ALT 201 H (21-72) U/L Alkaline Phosphatase 184 H (38-126) U/L Total Protein 5.8 L (6.3-8.2) g/dL Albumin 3.1 L (3.5-5.0) g/dL Microbiology - Last 24 Hours (Table) 05/16/17 14:33 Gram Stain - Preliminary Bronchial Washings - Right Bronchial Washings Culture - Preliminary 05/16/17 14:33 Fungal Culture - Preliminary Bronchial Washings - Right 05/16/17 14:33 Acid Fast Bacilli Culture - Preliminary Bronchial Washings - Right Assessment and Plan Plan: Urinary tract infection, culture positive for gram negatives bacilli and E. coli , which appears to be ESBL, IVS adjust antibiotics, leukocytosis and will repeat urine and blood and obtain a chest x-ray Acute hypoxic respiratory failure, with recurrent aspiration Hyperkalemia, improved Acute renal failure Sepsis with fever, gram-negative Hypernatremia likely related to decreased oral intake Probable rectal mass, currently being worked up Diarrhea History of CVA Plan As dictated above consider alternate medius mode of nutritional support Patient is currently being worked up for discharge planning to extended care facility. Discharge will be held until infectious disease can recommend antibiotics for possible ESBL in the urine. Currently patient is being monitored on antibiotics as per ID recommendations, we'll follow and observe Medications have been reviewed and will be continued as ordered. Patient's prognosis is guarded. Patient known to be resistive to care and medical treatment. Continue to monitor electrolytes. Patient will undergo colonoscopy once cleared, in the outpatient setting. Continue with pulmonary hygiene, coughing and deep breathing exercises, and supportive care. Supplemental oxygen to maintain oxygen saturations of 92% or better. Continue nebulizer treatments in the form of DuoNeb and budesonide. . GI and DVT prophylaxis. Appreciate consults recommendations. We will continue to monitor labs/results and adjust treatment as necessary. Further recommendations pending. Time with Patient: Greater than 30
--- NOTE | 2017-05-17 09:39 | P.PN ---
Subjective Patient is seen in follow-up for acute kidney injury. Renal function has significantly improved since admission. Hyperkalemia has resolved. Baseline creatinine is 1. Patient's currently resting in bed. He is not a very reliable historian. Oral intake remains poor. He is at high risk for aspiration. He is currently being treated for pneumonia as well as E. coli UTI. Vital signs are stable. General: The patient appeared well nourished and normally developed. HEENT: Head exam is unremarkable. Neck is without jugular venous distension. LUNGS: Lungs are clear to auscultation and percussion. Breath sounds decreased. HEART: Rate and Rhythm are regular. First and second heart sounds normal. No murmurs, rubs or gallops. ABDOMEN: Abdominal exam reveals normal bowel sounds. Non-tender and non- distended. No evidence of peritonitis. EXTREMITITES: No clubbing, cyanosis, or edema. Objective - Vital Signs Vital signs: Vital Signs Temp 98.6 F 05/17/17 07:00 Pulse 131 H 05/17/17 07:00 Resp 20 05/17/17 07:00 BP 163/73 05/17/17 07:00 Pulse Ox 97 05/17/17 07:00 Intake & Output 05/16/17 05/17/17 05/17/17 18:59 06:59 18:59 Intake Total 500 200 Balance 500 200 Weight 61 kg 60.5 kg Intake: Intake, IV Titration 500 200 Amount Dextrose 5% in Water 1, 400 000 ml @ 50 mls/hr IV . Q20H [facility] Rx#:[id number] Magnesium Sulfate-D5w Pmx 100 1 gm In Dextrose/Water 1 100ml.bag @ 100 mls/hr IVPB Q1H [facility] Rx#: [id number] Potassium Chloride 20 meq 100 100 Lidocaine 2% Inj 20 mg In Sodium Chloride 0.9% 100 ml @ 55.5 mls/hr IVPB Q2HR [facility] Rx#:[id number] Other: Voiding Method Diaper Diaper Incontinent Incontinent # Voids 2 - Labs CBC & Chem 7: 05/15/17 07:14 05/17/17 07:40 Labs: Abnormal Lab Results - Last 24 Hours (Table) 05/17/17 Range/Units 07:40 Chloride 115 H (98-107) mmol/L Carbon Dioxide 18 L (22-30) mmol/L Calcium 7.9 L (8.4-10.2) mg/dL Assessment and Plan Plan: Assessment: #1. Nonoliguric acute kidney injury secondary to ischemic ATN due to hemodynamic instability and diuresis. There may have also been a component of urinary retention. Improved. #2. Hyperkalemia secondary to acute kidney injury and potassium supplementation. Improved with medical treatment. #3. UTI. Urine culture positive for gram-negative bacilli - E. coli. #4. Hypernatremia secondary to lack of oral water intake. Improving with D5W. #5. Cecal dilation with concern of abscess. #6. Hypokalemia secondary to lack of oral intake. Magnesium also on the lower side. Improved post replacement. #7. Hyperchloremic metabolic acidosis secondary to the potassium infusion in NS he received yesterday. Plan: Maintain D5W to be run at 50 mL an hour. Avoid nephrotoxic agents and hypotensive episodes. Patient will need an alternate method for feeding as he is at high risk of aspiration.
--- NOTE | 2017-05-17 18:00 | P.PN ---
Subjective Principal diagnosis: sepsis 82-year-old male resident of [facility] was found evidence of multiple abnormal labs included acute renal failure and hyperkalemia. The patient was transferred from the [facility] for further intervention. Infectious diseases consultation was requested when the patient developed a high-grade fever reportedly over 104. the consult was initiated as the patient became febrile, hypotensive and tachycardic. The patient is a poor historian. The patient today is a bit more comfortable than reported last evening. He relates that he has minimal hunger. His mouth is dry. As related lactic acid was drawn which was elevated and had evidence of leukocytosis, the patient was given fluids and antibiotic therapy with Zosyn given the concerns to urinary system as well as potential abdominal source since he was having some diarrhea. As the patient is slightly more comfortable. Has been seen by surgery and is being monitored for a potential colonoscopy in the future. Regarding ongoing treatment for the colonic abscess. No complaints except for fatigue.. Objective - Vital Signs Vital signs: Vital Signs Temp 98.6 F 05/17/17 07:00 Pulse 110 H 05/17/17 12:10 Resp 20 05/17/17 07:00 BP 163/73 05/17/17 07:00 Pulse Ox 97 05/17/17 07:00 Intake & Output 05/16/17 05/17/17 05/17/17 18:59 06:59 18:59 Intake Total 500 200 400 Balance 500 200 400 Weight 61 kg 60.5 kg Intake: Intake, IV Titration 500 200 400 Amount Dextrose 5% in Water 1, 400 400 000 ml @ 50 mls/hr IV . Q20H [facility] Rx#:[id number] Magnesium Sulfate-D5w Pmx 100 1 gm In Dextrose/Water 1 100ml.bag @ 100 mls/hr IVPB Q1H [facility] Rx#: [id number] Potassium Chloride 20 meq 100 100 Lidocaine 2% Inj 20 mg In Sodium Chloride 0.9% 100 ml @ 55.5 mls/hr IVPB Q2HR [facility] Rx#:[id number] Other: Voiding Method Diaper Diaper Diaper Incontinent Incontinent Incontinent # Voids 2 - Exam 82-year-old male poor historian HEENT: Anicteric conjunctiva are pink and mildly crusty nasal mucosa grossly intact without significant lesions, there is no thrush but the oral cavity is very dry Neck: The neck is supple without significant lymphadenopathy or thyromegaly. Lungs: There is symmetrical air entry. Scattered expiratory wheezes are noted. Heart: Irregular with soft S4 no distinct murmur click or rub Abdomen: Positive bowel sounds soft and nontender without palpable masses or organomegaly. There was no guarding or rebound. Extremities: The extremities have some minimal trace edema but no significant lesions are seen in the upper extremities. The lower extremities have evidence of the extensive skin lesion the bilateral lower extremities. There is a healing left hip incision which is without erythema crepitance or fluctuance. Neuro: Arousable, speech content is poor and inconsistent can poorly understandable he however does move arms and legs spontaneously Skin he has a mild erythematous rash on the chest. Does not relate that it significantly pruritic. - Labs CBC & Chem 7: 05/15/17 07:14 05/17/17 07:40 Labs: Abnormal Lab Results - Last 24 Hours (Table) 05/17/17 Range/Units 07:40 Chloride 115 H (98-107) mmol/L Carbon Dioxide 18 L (22-30) mmol/L Calcium 7.9 L (8.4-10.2) mg/dL Laboratory Results WBC 21.1 k/uL (3.8-10.6) H 05/15/17 07:14 RBC 3.69 m/uL (4.30-5.90) L 05/15/17 07:14 Hgb 11.6 gm/dL (13.0-17.5) L 05/15/17 07:14 Hct 36.0 % (39.0-53.0) L 05/15/17 07:14 MCV 97.6 fL (80.0-100.0) 05/15/17 07:14 MCH 31.3 pg (25.0-35.0) 05/15/17 07:14 MCHC 32.1 g/dL (31.0-37.0) 05/15/17 07:14 RDW 16.1 % (11.5-15.5) H 05/15/17 07:14 Plt Count 597 k/uL (150-450) H 05/15/17 07:14 Neutrophils % 79 % 05/12/17 06:54 Lymphocytes % 10 % 05/12/17 06:54 Monocytes % 5 % 05/12/17 06:54 Eosinophils % 3 % 05/12/17 06:54 Basophils % 0 % 05/12/17 06:54 Neutrophils # 8.6 k/uL (1.3-7.7) H 05/12/17 06:54 Lymphocytes # 1.1 k/uL (1.0-4.8) 05/12/17 06:54 Monocytes # 0.6 k/uL (0-1.0) 05/12/17 06:54 Eosinophils # 0.3 k/uL (0-0.7) 05/12/17 06:54 Basophils # 0.1 k/uL (0-0.2) 05/12/17 06:54 Hypochromasia Slight 05/15/17 07:14 Anisocytosis Slight 05/15/17 07:14 Macrocytosis Slight 05/15/17 07:14 Sodium 143 mmol/L (137-145) 05/17/17 07:40 Potassium 4.6 mmol/L (3.5-5.1) 05/17/17 07:40 Chloride 115 mmol/L (98-107) H 05/17/17 07:40 Carbon Dioxide 18 mmol/L (22-30) L 05/17/17 07:40 Anion Gap 10 mmol/L 05/17/17 07:40 BUN 10 mg/dL (9-20) 05/17/17 07:40 Creatinine 0.91 mg/dL (0.66-1.25) 05/17/17 07:40 Est GFR (MDRD) Af Amer >60 (>60 ml/min/1.73 sqM) 05/17/17 07:40 Est GFR (MDRD) Non-Af >60 (>60 ml/min/1.73 sqM) 05/17/17 07:40 Glucose 80 mg/dL (74-99) 05/17/17 07:40 POC Glucose (mg/dL) 98 mg/dL (75-99) 05/04/17 22:36 POC Glu [employer] Business Analyst ID Darryl Fink 05/04/17 22:36 Lactic Ac Sepsis Rflx Y 05/05/17 00:06 Plasma Lactic Acid Froy 1.3 mmol/L (0.7-2.0) 05/05/17 03:21 Calcium 7.9 mg/dL (8.4-10.2) L 05/17/17 07:40 Magnesium 2.1 mg/dL (1.6-2.3) 05/17/17 07:40 Total Bilirubin 0.6 mg/dL (0.2-1.3) 05/15/17 07:14 AST 34 U/L (17-59) 05/15/17 07:14 ALT 35 U/L (21-72) 05/15/17 07:14 Alkaline Phosphatase 157 U/L (38-126) H 05/15/17 07:14 Total Creatine Kinase 125 U/L (55-170) 05/02/17 17:46 CK-MB (CK-2) 3.7 ng/mL (0.0-2.4) H* 05/02/17 17:46 CK-MB (CK-2) Rel Index 3.0 05/02/17 17:46 Troponin I 0.029 ng/mL (0.000-0.034) 05/02/17 17:46 Total Protein 5.3 g/dL (6.3-8.2) L 05/15/17 07:14 Albumin 2.5 g/dL (3.5-5.0) L 05/15/17 07:14 Urine Color Yellow 05/02/17 19:18 Urine Appearance Cloudy (Clear) 05/02/17 19:18 Urine pH 6.0 (5.0-8.0) 05/02/17 19:18 Ur Specific [place] 1.011 (1.001-1.035) 05/02/17 19:18 Urine Protein 1+ (Negative) H 05/02/17 19:18 Urine Glucose (UA) Negative (Negative) 05/02/17 19:18 Urine Ketones Negative (Negative) 05/02/17 19:18 Urine Blood Moderate (Negative) H 05/02/17 19:18 Urine Nitrite Negative (Negative) 05/02/17 19:18 Urine Bilirubin Negative (Negative) 05/02/17 19:18 Urine Urobilinogen 3.0 mg/dL (<2.0) 05/02/17 19:18 Ur Leukocyte Esterase Large (Negative) H 05/02/17 19:18 Urine RBC 71 /hpf (0-5) H 05/02/17 19:18 Urine WBC 155 /hpf (0-5) H 05/02/17 19:18 Urine WBC Clumps Few /hpf (None) H 05/02/17 19:18 Urine Bacteria Few /hpf (None) H 05/02/17 19:18 Urine Mucus Rare /hpf (None) H 05/02/17 19:18 C. difficile (EIA) Intrp Negative (Negative) 05/03/17 15:54 Microbiology 05/04/17 23:29 Blood Blood Culture - Final No Growth after 144 hours 05/03/17 17:57 Blood Blood Culture - Final No Growth after 144 hours 05/03/17 03:00 Urine,Catheterized Urine Culture - Final Escherichia coli Assessment and Plan (1) Gram-negative sepsis with organ dysfunction Narrative/Plan: 82-year-old male transferred from extended care facility for alteration of his status. We'll request performed there was evidence of leukocytosis, acute renal failure, hyperkalemia. With this he was transferred to Hospital and is now received intervention and has been seen by nephrology. Because of his illness computed tomography scan of the abdomen and pelvis was performed showing evidence of the significant cecal dilatation and concerns to infection and abscess at that site. The patient has been seen by surgery and will plan colonoscopy when he is medically cleared. At the time of the consult fluid bolus was given since his computed tomography scan did not show evidence of heart failure. Antipyretics were given. The patient defervesced and his significant tachycardia and hypotension resolved. The patient has remained on selective care. His CODE STATUS is full, and apparently this has been addressed with the family and they do not yet understand the current ramifications of his illness. Ongoing discussion shall be held for more appropriate CODE STATUS. He has had a significant leukocytosis which is her sinning. There is evidence of urine culture with E. coli. His fever has resolved. Antibiotic therapy with Zosyn was initiated with concerns to the abdominal sepsis. We will also give coverage for his urinary tract infection based on prior cultures. He does have some crustiness to his eyes and Polysporin was given with improvement. His legs are wrapped continue the ulcer on the dorsum of the right foot. Local wound care as changed to medical Honey to try to debrided this better. Continue to wrap the legs. The dressing changes can be performed every other day. Assessment followed by surgery. Will need outpatient endoscopic evaluation if possible. The patient had had adequate treatment for his urinary infection but was still receiving some antibiotic therapy for the abdominal infection. The condition to oral therapy seems to not be effective at this time. His leukocytosis has increased and is now developed a bit of a rash possibly from the new antibiotic therapy. We'll transition to ertapenem and monitor response. Will need close surgical follow-up. Status: Acute (2) Acute renal failure Status: Acute (3) Hyperkalemia Status: Acute (4) UTI (urinary tract infection) Status: Acute
[2017-05-17] MEDS: ERTAPENEM 1 GM in SODIUM CHLORIDE 0.9% 50 ML IVPB SCH (18:31)
[2017-05-17] MEDS: SENNOSIDES-DOCUSATE SODIUM 1 EACH TAB PO SCH (21:18)
[2017-05-18] MEDS: ENOXAPARIN 40 MG/0.4 ML SYRINGE SQ SCH (06:01)
[2017-05-18 06:40] LABS: Anisocytosis Slight; CH 31.1; CHCM 31.3; HCT 38.5 % (39.0-53.0); HDW 3.07; Hypochromasia Slight; MCH 31.3 pg (25.0-35.0); MCHC 31.2 g/dL (31.0-37.0); MCV 100.1 fL (80.0-100.0); Macrocytosis Slight; RBC 3.85 m/uL (4.30-5.90); RDW 16.4 % (11.5-15.5); WBC 19.2 k/uL (3.8-10.6)
[2017-05-18 07:10] LABS: ALT 34 U/L (21-72); AST 33 U/L (17-59); Alkaline Phosphatase 147 U/L (38-126); Anion Gap 9 mmol/L; Blood Urea Nitrogen 11 mg/dL (9-20); Calcium 8.2 mg/dL (8.4-10.2); Carbon Dioxide 23 mmol/L (22-30); Chloride 110 mmol/L (98-107); Glucose 92 mg/dL (74-99); Non-African American GFR(MDRD) >60 (>60 ml/min/1.73 sqM); Potassium 3.9 mmol/L (3.5-5.1); Sodium 142 mmol/L (137-145); Total Bilirubin 0.4 mg/dL (0.2-1.3); Total Protein 5.1 g/dL (6.3-8.2)
[2017-05-18] MEDS: CLOTRIMAZOLE/BETAMETH 1-0.05% CREAM 45 GM TUBE TOPICAL SCH ×2 (09:20→21:29)
[2017-05-18] MEDS: BACITRACIN/POLYMYX 500-10,000 UNIT/GM OPHTH OINT 3.5 GM TUBE BOTH EYES SCH ×4 (09:20→21:28)
[2017-05-18] MEDS: AMMONIUM LACTATE 12% LOTION 225 GM BTL TOPICAL SCH ×2 (09:20→21:27)
[2017-05-18] MEDS: METOPROLOL TARTRATE 50 MG TAB PO SCH ×3 (09:21→21:29)
[2017-05-18] MEDS: CLOPIDOGREL 75 MG TAB PO SCH (09:21)
[2017-05-18] MEDS: LORATADINE 10 MG TAB PO SCH (09:22)
[2017-05-18] MEDS: ERTAPENEM 1 GM in SODIUM CHLORIDE 0.9% 50 ML IVPB SCH (09:23)
[2017-05-18] MEDS: BUDESONIDE 0.5 MG/2 ML NEBU INHALATION SCH ×2 (09:31→20:20)
[2017-05-18] MEDS: IPRATROPIUM-ALBUTEROL 3 ML NEB INHALATION SCH ×3 (09:31→20:20)
[2017-05-18] MEDS ORDERED: PHENYLEPHRINE-0.9% NACL SYG 1 MG/10 ML SYRINGE ONE (12:00)
[2017-05-18] MEDS ORDERED: PROPOFOL 10 MG/ML 20 ML VIAL IV ONE (12:00)
--- NOTE | 2017-05-18 12:02 | P.GSCN ---
History of Present Illness Consult date: 05/22/17 Reason for Consult: PEG tube placement History of present illness: The patient was admitted to the hospital with sepsis. He is not been doing well consistently with taking his medications or eating. Seen by speech pathology. He is noted to sometimes aspirate. Other times is able to tolerate medications mixed in yogurt but not consistently. Due to this recommendation was made for at least a short-term feeding tube. Review of Systems All systems: negative (The patient is a poor historian. 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, hearing loss, and memory impairment, very dry skin, sepsis History of Any Multi-Drug Resistant Organisms: None Reported Additional Past Surgical History / Comment(s): hemorrhoidectomy, bilateral rotator cuff Past Anesthesia/Blood Transfusion Reactions: No Reported Reaction Past Psychological History: No Psychological Hx Reported Smoking Status: Unknown if ever smoked Past Alcohol Use History: None Reported Past Drug Use History: None Reported - Past Family History Sister(s) Family Medical History: CVA/TIA Medications and Allergies Home Medications Medication Instructions Recorded Confirmed Type Bisoprolol-Hctz 10-6.25 mg [Ziac 1 tab PO DAILY@0901/25/14 05/02/17 History 10-6.25 MG] Clopidogrel [Plavix] 75 mg PO DAILY@0901/25/14 05/02/17 History amLODIPine BESYLATE/BENAZEPRIL 1 cap PO DAILY@89901/25/14 05/02/17 History [Lotrel 5-20 mg Capsule] Ranitidine HCl [Zantac] 150 mg PO DAILY@0604/05/17 05/02/17 History Ammonium Lactate Lotion 1 applic TOPICAL BID 05/02/17 05/02/17 History [Lac-Hydrin 12% Lotion] Clotrimazole/Betamethasone Dip 1 applic TOPICAL BID 05/02/17 05/02/17 History [Lotrisone Cream] Enoxaparin [Lovenox] 40 mg SQ DAILY@0600 05/02/17 05/02/17 History Furosemide [Lasix] 40 mg PO BID@0900,2100 05/02/17 05/02/17 History HYDROcodone/APAP 10-325MG [[place] 1 tab PO Q6H PRN 05/02/17 05/02/17 History 10-325] Lactose-Reduced Food [Ensure Plus] 120 ml PO AC-TID@10,14,21 05/02/17 05/02/17 History Magnesium Hydroxide [Milk of 2,400 mg PO DAILY PRN 05/02/17 05/02/17 History Magnesia] Potassium Chloride ER [K-Dur 20] 20 meq PO BID@0900,2100 05/02/17 05/02/17 History Sennosides-Docusate Sodium 2 tab PO HS@209905/02/17 05/02/17 History [Senokot-S] Triad Wound Paste 1 applic TOPICAL BID 05/02/17 05/02/17 History Allergies Allergy/AdvReac Type Severity Reaction Status Date / Time No Known Allergies Allergy Verified 05/02/17 17:34 Surgical - Exam Osteopathic Statement: *. No significant issues noted on an osteopathic structural exam other than those noted in the History and Physical/Consult. Vital Signs Temp Pulse Resp BP Pulse Ox 97.3 F L 85 18 120/71 95 05/02/17 17:25 05/02/17 17:25 05/02/17 17:25 05/02/17 17:25 05/02/17 17:25 - General Thin, chronically ill-appearing - Eyes normal ocular movement - ENT no congestion - Neck trachea midline - Respiratory normal respiratory effort (Diminished at the bases) - Cardiovascular Rhythm: regular - Abdomen Abdomen: soft, non tender - Integumentary There is a diffuse rash noted along the chest and abdomen. This is felt to be a drug reaction. He has his arms and legs bandaged. This is being followed medically. - Psychiatric no oriented to person, no oriented to place, no memory intact Results - Labs 05/18/17 06:24 05/18/17 06:24 Abnormal Lab Results - Last 24 Hours (Table) 05/18/17 05/18/17 Range/Units 06:24 06:24 WBC 19.2 H (3.8-10.6) k/uL RBC 3.85 L (4.30-5.90) m/uL Hgb 12.0 L (13.0-17.5) gm/dL Hct 38.5 L (39.0-53.0) % MCV 100.1 H (80.0-100.0) fL RDW 16.4 H (11.5-15.5) % Plt Count 516 H (150-450) k/uL Chloride 110 H (98-107) mmol/L Calcium 8.2 L (8.4-10.2) mg/dL Alkaline Phosphatase 147 H (38-126) U/L Total Protein 5.1 L (6.3-8.2) g/dL Albumin 2.3 L (3.5-5.0) g/dL Diabetes panel 05/18/17 Range/Units 06:24 Sodium 142 (137-145) mmol/L Potassium 3.9 (3.5-5.1) mmol/L Chloride 110 H (98-107) mmol/L Carbon Dioxide 23 (22-30) mmol/L BUN 11 (9-20) mg/dL Creatinine 1.00 (0.66-1.25) mg/dL Glucose 92 (74-99) mg/dL Calcium 8.2 L (8.4-10.2) mg/dL AST 33 (17-59) U/L ALT 34 (21-72) U/L Alkaline Phosphatase 147 H (38-126) U/L Total Protein 5.1 L (6.3-8.2) g/dL Albumin 2.3 L (3.5-5.0) g/dL Calcium panel 05/18/17 Range/Units 06:24 Calcium 8.2 L (8.4-10.2) mg/dL Albumin 2.3 L (3.5-5.0) g/dL Pituitary panel 05/18/17 Range/Units 06:24 Sodium 142 (137-145) mmol/L Potassium 3.9 (3.5-5.1) mmol/L Chloride 110 H (98-107) mmol/L Carbon Dioxide 23 (22-30) mmol/L BUN 11 (9-20) mg/dL Creatinine 1.00 (0.66-1.25) mg/dL Glucose 92 (74-99) mg/dL Calcium 8.2 L (8.4-10.2) mg/dL Adrenal panel 05/18/17 Range/Units 06:24 Sodium 142 (137-145) mmol/L Potassium 3.9 (3.5-5.1) mmol/L Chloride 110 H (98-107) mmol/L Carbon Dioxide 23 (22-30) mmol/L BUN 11 (9-20) mg/dL Creatinine 1.00 (0.66-1.25) mg/dL Glucose 92 (74-99) mg/dL Calcium 8.2 L (8.4-10.2) mg/dL Total Bilirubin 0.4 (0.2-1.3) mg/dL AST 33 (17-59) U/L ALT 34 (21-72) U/L Alkaline Phosphatase 147 H (38-126) U/L Total Protein 5.1 L (6.3-8.2) g/dL Albumin 2.3 L (3.5-5.0) g/dL Assessment and Plan (1) Protein-calorie malnutrition, moderate Status: Acute (2) Aspiration into airway Status: Acute Plan: PEG tube placement was discussed with his via phone. Procedures and complications were discussed with do that for him today.
[2017-05-18] MEDS ORDERED: LACTATED RINGERS 1,000 ML IV ONE (12:04)
--- NOTE | 2017-05-18 12:31 | P.OP ---
Date of Procedure: 05/18/17 Preoperative Diagnosis: Aspiration Postoperative Diagnosis: Aspiration, gastritis, duodenal ulcer Procedure(s) Performed: EGD with biopsy and PEG tube placement Implants: Anesthesia: MAC Surgeon: Leyda Shin Estimated Blood Loss (ml): 2 Pathology: other (Duodenum) Condition: stable Disposition: PACU Indications for Procedure: The patient presented with sepsis. He's had varying degrees of ability to swallow so PEG tube was recommended Operative Findings: Description of Procedure: The patient's taken to the endoscopy suite were gastroscope is passed per mouth to the third and fourth portions of the duodenum. He has thick secretions in the pharynx. He has thick secretions in the esophagus. It shows some mild diffuse gastritis. The pylorus is unremarkable. He has a small duodenal ulcer in the bulb. A cold biopsy was obtained there. The stomach is then insufflated and palpated. A site for PEG tube placement is chosen. It's prepped and draped in the usual sterile manner. Local anesthetic is then instilled into the skin and abdominal wall. A skin myrna is made. An introducer needle was placed. A guidewire is placed through the introducer and its grasped with a polypectomy snare. The endoscope and guidewire are removed per mouth. A Ponsky push PEG tube is then placed over the guidewire and brought through the abdominal wall. The tube is trimmed to size and attached to the appropriate adapters. The endoscope was reinserted and the mullen is noted to seat against the gastric wall without bleeding. The scope was withdrawn. He tolerated the procedure without difficulty and is taken recovery room in satisfactory condition.
[2017-05-18] MEDS ORDERED: BUPIVACAIN-EPI 0.25%-1:200,000 30 ML VIAL SQ ONE (12:47)
--- NOTE | 2017-05-18 12:49 | P.PN ---
Subjective Principal diagnosis: Patient seen and evaluated exam and clinically patient is doing well in terms of breathing is still issues associated with swallowing dysfunction is present patient has been found ESBL E. coli UTI antibiotics are adjusted by the infectious disease services hemodynamic status stable 05/08/17- This is an 82-year-old male patient who came into the emergency department on 05/02/2017 from an extended care facility. Patient was noted to have a potassium of 6.4 at the extended care facility and therefore they sent him over. The patient did not have any further complaints and he has intermittent confusion which is his baseline. EKG performed in the emergency room did show sinus rhythm with occasional PVCs, patient had no ST segment elevation or depression or T-wave abnormalities. The patient was put on lactulose. Hypertension is also being worked up for possible rectal mass and will undergo colonoscopy when stable with Dr. Piña. All labs and reports have been reviewed. Patient is being seen and examined today on the sixth floor for pulmonary services related to progression of shortness of breath over the last few days. He has had a cough however denies any congestion. Nursing staff has denied any sputum production. He is alert and oriented 1 with intermittent confusion. Has been afebrile. Currently is on 3 L of supplemental oxygen via nasal cannula. It is unclear if the patient utilized oxygen in the extended care facility setting. Patient is also on a mechanical soft diet with aspiration precautions. 05/09/17- this patient is being evaluated and examined and seen on rounds today. All labs and reports were reviewed. The patient hyperkalemia has improved. The white blood cell count has come down to 12.8. Patient was noted to have increased lethargy and decreased cognition yesterday afternoon therefore a neurology consult was initiated. Patient is going for a CT of the brain as well as an EEG today. Patient's speech is noted to be slightly slurred and mumbled. Overnight he was noted to refuse care, had increase in agitation, and was refusing food and fluids. and primary care were updated. 05/10/17- this patient is being evaluated exam and seen today on the selective care unit. All labs and reports have been reviewed. Patient appears more awake today than previously. Patient did undergo a CT of the brain and EEG yesterday. Neurology and nephrology is on consult. Patient's prognosis is guarded and he has multiple comorbidities. Upon examination the patient's resting up in bed on room air states he occasionally has shortness of breath with exertion. He denies any cough or congestion at this time. Discharge planning is in process and appears the patient will go back to extended care facility when discharged. 05/11/17- patient is being seen in evaluated and examined today on the fifth floor. Patient is known to be slightly tired however is easily awoken. Currently he is resting up in bed on room air. Patient noticed to have a faint light red flat erythema rash to his right lateral chest. He denies any itching or pain. The area is small and diffuse. We will continue to monitor this. He does have Lotrisone cream for the area. On examination he denies any shortness of breath cough or congestion. Family at bedside updated on plan of care. 05/12/17- patient is being seen examined and evaluated today on the floor. The patient continues to be tired however is easily aroused upon examination. No further progression is noted of his rash to the right lateral chest. On examination patient's resting up in bed on room air. Shortness of breath as noted with exertion. Intermittent cough. He is afebrile, no overnight events. 05/13/17- patient is being seen examined and evaluated today on the floor. On examination the patient is resting in bed on room air, continues with shortness of breath on exertion. According to the nursing staff during breakfast the patient was coughing and choking and has dysphagia diet. Continue swallow evaluation with speech therapy has been ordered. Patient seen and evaluated examined today given that he has significant risk of aspiration and aspiration related complication and likelihood of recovery from that is very poor patient is now being considered for PEG tube placement which is being planned for today, from respiratory standpoint however doing fairly well still of intermittent cough and congestion but no significant desaturation he does get short of breath on activity and exertion Patient seen and evaluated examined during the rounds on 05/16/2017, patient is awake but remains extremely confused, patient is currently going swallow evaluation even with honey thick nectar and half a spoon very slow patient continued to have coughing spells suggestive of ongoing aspiration, on examination patient does have coarse breath sounds however no clear hearing gurgling is seen or noted, given presence of significant aspiration patient will need to be reevaluated for alternative means of nutrition support 05/08/17- This is an 82-year-old male patient who came into the emergency department on 05/02/2017 from an extended care facility. Patient was noted to have a potassium of 6.4 at the extended care facility and therefore they sent him over. The patient did not have any further complaints and he has intermittent confusion which is his baseline. EKG performed in the emergency room did show sinus rhythm with occasional PVCs, patient had no ST segment elevation or depression or T-wave abnormalities. The patient was put on lactulose. Hypertension is also being worked up for possible rectal mass and will undergo colonoscopy when stable with Dr. Piña. All labs and reports have been reviewed. Patient is being seen and examined today on the sixth floor for pulmonary services related to progression of shortness of breath over the last few days. He has had a cough however denies any congestion. Nursing staff has denied any sputum production. He is alert and oriented 1 with intermittent confusion. Has been afebrile. Currently is on 3 L of supplemental oxygen via nasal cannula. It is unclear if the patient utilized oxygen in the extended care facility setting. Patient is also on a mechanical soft diet with aspiration precautions. 05/09/17- this patient is being evaluated and examined and seen on rounds today. All labs and reports were reviewed. The patient hyperkalemia has improved. The white blood cell count has come down to 12.8. Patient was noted to have increased lethargy and decreased cognition yesterday afternoon therefore a neurology consult was initiated. Patient is going for a CT of the brain as well as an EEG today. Patient's speech is noted to be slightly slurred and mumbled. Overnight he was noted to refuse care, had increase in agitation, and was refusing food and fluids. and primary care were updated. 05/10/17- this patient is being evaluated exam and seen today on the selective care unit. All labs and reports have been reviewed. Patient appears more awake today than previously. Patient did undergo a CT of the brain and EEG yesterday. Neurology and nephrology is on consult. Patient's prognosis is guarded and he has multiple comorbidities. Upon examination the patient's resting up in bed on room air states he occasionally has shortness of breath with exertion. He denies any cough or congestion at this time. Discharge planning is in process and appears the patient will go back to extended care facility when discharged. 05/11/17- patient is being seen in evaluated and examined today on the fifth floor. Patient is known to be slightly tired however is easily awoken. Currently he is resting up in bed on room air. Patient noticed to have a faint light red flat erythema rash to his right lateral chest. He denies any itching or pain. The area is small and diffuse. We will continue to monitor this. He does have Lotrisone cream for the area. On examination he denies any shortness of breath cough or congestion. Family at bedside updated on plan of care. 05/12/17- patient is being seen examined and evaluated today on the floor. The patient continues to be tired however is easily aroused upon examination. No further progression is noted of his rash to the right lateral chest. On examination patient's resting up in bed on room air. Shortness of breath as noted with exertion. Intermittent cough. He is afebrile, no overnight events. 05/13/17- patient is being seen examined and evaluated today on the floor. On examination the patient is resting in bed on room air, continues with shortness of breath on exertion. According to the nursing staff during breakfast the patient was coughing and choking and has dysphagia diet. Continue swallow evaluation with speech therapy has been ordered. Objective - Vital Signs Vital signs: Vital Signs Temp 98.3 F 05/18/17 10:31 Pulse 133 H 05/18/17 10:31 Resp 20 05/18/17 10:31 BP 125/87 05/18/17 10:31 Pulse Ox 97 05/18/17 10:31 Intake & Output 05/17/17 05/18/17 05/18/17 18:59 06:59 18:59 Intake Total 400 400 Balance 400 400 Weight 58.5 kg Intake: Intake, IV Titration 400 400 Amount Dextrose 5% in Water 1, 400 400 000 ml @ 50 mls/hr IV . Q20H [facility] Rx#:[id number] Other: Voiding Method Diaper Diaper Incontinent Incontinent # Voids 2 - Exam GENERAL EXAM: Alert, intermittent confusion noted which is baseline, comfortable in no apparent distress. HEAD: Normocephalic. EYES: Normal reaction of pupils, equal size. NOSE: Clear with pink turbinates. THROAT: No erythema or exudates. NECK: No masses, no JVD. CHEST: No chest wall deformity. LUNGS: Equal air entry with no crackles, wheeze, rhonchi or dullness. Breath sounds decreased bilaterally. CVS: S1 and S2 normal with no audible mumurs, regular rhythm. ABDOMEN: No hepatosplenomegaly, normal bowel sounds, no guarding or rigidity. EXTREMITIES: +2 edema noted, pedal pulses palpable. Chronic skin changes noted , bilateral legs wrapped SKIN: Multiple skin tears, flat erythema diffuse rash to right lateral chest, cream applied CENTRAL NERVOUS SYSTEM: No focal deficits, moves all 4 extremities. - Labs CBC & Chem 7: 05/18/17 06:24 05/18/17 06:24 Labs: Abnormal Lab Results - Last 24 Hours (Table) 05/18/17 05/18/17 Range/Units 06:24 06:24 WBC 19.2 H (3.8-10.6) k/uL RBC 3.85 L (4.30-5.90) m/uL Hgb 12.0 L (13.0-17.5) gm/dL Hct 38.5 L (39.0-53.0) % MCV 100.1 H (80.0-100.0) fL RDW 16.4 H (11.5-15.5) % Plt Count 516 H (150-450) k/uL Chloride 110 H (98-107) mmol/L Calcium 8.2 L (8.4-10.2) mg/dL Alkaline Phosphatase 147 H (38-126) U/L Total Protein 5.1 L (6.3-8.2) g/dL Albumin 2.3 L (3.5-5.0) g/dL Assessment and Plan Plan: Recurrent intermittent aspiration with episodes of silent aspiration patient is being planned for PEG tube placement Urinary tract infection, culture positive for gram negatives bacilli and E. coli , which appears to be ESBL, IVS adjust antibiotics Acute hypoxic respiratory failure, with recurrent aspiration Hyperkalemia, improved Acute renal failure Sepsis with fever, gram-negative Hypernatremia likely related to decreased oral intake Probable rectal mass, currently being worked up Diarrhea History of CVA Plan As dictated above consider alternate medius mode of nutritional support Patient is currently being worked up for discharge planning to extended care facility, we'll follow and observe Medications have been reviewed and will be continued as ordered. Patient's prognosis is guarded. Patient known to be resistive to care and medical treatment. Continue to monitor electrolytes. Patient will undergo colonoscopy once cleared, in the outpatient setting. Continue with pulmonary hygiene, coughing and deep breathing exercises, and supportive care. Supplemental oxygen to maintain oxygen saturations of 92% or better. Continue nebulizer treatments in the form of DuoNeb and budesonide. . GI and DVT prophylaxis. Appreciate consults recommendations. We will continue to monitor labs/results and adjust treatment as necessary. Further recommendations pending. Time with Patient: Greater than 30
--- NOTE | 2017-05-18 13:00 | PN ---
The patient is seen for follow-up for acute kidney injury and hyperkalemia. The patient is being treated for pneumonia as well as urinary tract infection . Currently he is lying in bed, comfortable without any acute distress. Blood pressure is 125/87. Heart rate this morning was high at 133. The patient is afebrile. Examination of the heart S1, S2. Tachycardia is noted. Examination of the lungs bilateral breath sounds are heard. Abdomen is soft. Nontender. Examination of the lower extremities shows multiple skin scabs and wounds. No significant edema is noted. Labs shows serum creatinine 1.0. Sodium 142. Potassium 3.9, hemoglobin 12.0. ASSESSMENT: 1. Acute kidney injury, prerenal currently improved. Serum creatinine coming down from 4.1 on admission to 0.9 and 1.0 now. Currently the patient is maintained on a small amount of D5W which will continue. We should increase his oral intake. 2. Hypokalemia, status post replacement. 3. Mild hypernatremia which currently on D5W. 4. Pneumonia. Maintained on IV antibiotics. 5. E. coli urinary tract infection. PLAN: Continue D5W and encourage increased oral intake. MTDD
[2017-05-18] MEDS: DEXTROSE 5% IN WATER 1,000 ML IV SCH (15:21)
[2017-05-18] MEDS: HYDROcodone/APAP 15 ML SOLUTION PEG/G-TUBE PRN (16:48)
[2017-05-18] MEDS: SENNOSIDES-DOCUSATE SODIUM 1 EACH TAB PO SCH (21:29)
[2017-05-19] MEDS: ENOXAPARIN 40 MG/0.4 ML SYRINGE SQ SCH (06:21)
[2017-05-19] MEDS: IPRATROPIUM-ALBUTEROL 3 ML NEB INHALATION SCH ×3 (07:16→19:46)
[2017-05-19] MEDS: BUDESONIDE 0.5 MG/2 ML NEBU INHALATION SCH ×2 (07:16→19:45)
[2017-05-19] MEDS: ERTAPENEM 1 GM in SODIUM CHLORIDE 0.9% 50 ML IVPB SCH (08:21)
[2017-05-19] MEDS: CLOPIDOGREL 75 MG TAB PO SCH ×2 (08:23→09:09)
[2017-05-19] MEDS: BACITRACIN/POLYMYX 500-10,000 UNIT/GM OPHTH OINT 3.5 GM TUBE BOTH EYES SCH ×4 (08:23→22:59)
[2017-05-19] MEDS: LORATADINE 10 MG TAB PO SCH ×2 (08:23→09:09)
[2017-05-19] MEDS: AMMONIUM LACTATE 12% LOTION 225 GM BTL TOPICAL SCH ×2 (08:23→22:59)
[2017-05-19] MEDS: METOPROLOL TARTRATE 50 MG TAB PO SCH ×3 (08:23→22:59)
--- NOTE | 2017-05-19 11:26 | P.PN ---
Subjective Principal diagnosis: PEG tube placement for aspiration The patient is confused. Nursing reports he did have emesis this morning while they were cleaning him up. He is stooling. Objective - Vital Signs Vital signs: Vital Signs Temp 100.0 F H 05/19/17 07:00 Pulse 132 H 05/19/17 07:28 Resp 20 05/19/17 07:00 BP 132/72 05/19/17 07:00 Pulse Ox 100 05/19/17 07:00 Intake & Output 05/18/17 05/19/17 05/19/17 18:59 06:59 18:59 Intake Total 950 400 Balance 950 400 Weight 58.5 kg Intake: IV 550 Intake, IV Titration 400 400 Amount Dextrose 5% in Water 1, 400 400 000 ml @ 50 mls/hr IV . Q20H [facility] Rx#:[id number] Other: Voiding Method Diaper Diaper Diaper Incontinent Incontinent Incontinent # Voids 1 # Bowel Movements 1 # Emeses 2 - Constitutional General appearance: Present: cooperative, no acute distress - Gastrointestinal General gastrointestinal: Present: normal bowel sounds, soft Localized gastrointestinal: surgical scar: LLQ (PEG 10 feet without cellulitis) - Integumentary Integumentary Comment(s): He continues to have good diffuse rash along the trunk and abdomen - Labs CBC & Chem 7: 05/18/17 06:24 05/18/17 06:24 Assessment and Plan (1) Protein-calorie malnutrition, moderate Status: Acute (2) Aspiration into airway Status: Acute Plan: We'll check a step residual this afternoon if slow then we'll initiate feedings.
[2017-05-19] MEDS: PANTOPRAZOLE 40 MG/10 ML VIAL IVP SCH (11:45)
--- NOTE | 2017-05-19 12:04 | PN ---
DATE OF SERVICE: 05/18/2017 I am covering for Dr. Anderson. This 82-year-old gentleman who was admitted with significant renal failure also had diminished p.o. intake. The patient also had gram-negative sepsis with organ dysfunction. The patient is being closely monitored. PEG tube placement is being planned today. ECF rehab is also being anticipated by Dr. Anderson. Dr. Valverde is following the patient closely. PAST MEDICAL HISTORY: Reviewed. Review of systems could not be taken. The patient is stuporous. Current medications are reviewed and include: 1. Tylenol 650 q.6. p.r.n. 2. [place]kin p.r.n. 3. DuoNeb. 4. Polysporin. 6. Pulmicort. 7. Plavix 75 mg daily. 8. Valium. 9. Lovenox. 10. Ativan. 11. Lopressor. 12. Zofran. 13. Senokot S. PHYSICAL EXAMINATION: The patient is stuporous. Pulse is 103, blood pressure 130/73, respirations 20, temperature 98.7, pulse ox 94% on room air. HEENT: Conjunctivae normal. NECK: No jugular venous distention. CARDIOVASCULAR: S1, S2. RESPIRATORY: Breath sounds diminished at the bases. A few scattered rhonchi and crackles. ABDOMEN: Soft, nontender. LEGS: No edema, no swelling. NERVOUS SYSTEM: Diffusely weak. LABS: WBC 9, hemoglobin 12. ASSESSMENT: 1. Acute renal failure, possibly prerenal factors. 2. Escherichia coli with gram-negative sepsis and organ dysfunction. 3. Cerebrovascular accident and transient ischemic attack. 4. Change in mental status, metabolic encephalopathy. 5. Hypokalemia improved. 6. Increased WBC. RECOMMENDATIONS AND DISCUSSION: This 82-year-old gentleman presented with multiple complex medical issues, we well monitor the patient closely. Continue the current medications. Continue symptomatic treatment. PEG tube insertion has been planned at this time. Otherwise continue the broad-spectrum IV antibiotics. Monitor closely. Repeat labs. Guarded prognosis. Further recommendations to follow. MTDD
--- NOTE | 2017-05-19 12:43 | P.PN ---
Subjective Principal diagnosis: Patient seen and evaluated exam and clinically patient is doing well in terms of breathing is still issues associated with swallowing dysfunction is present patient has been found ESBL E. coli UTI antibiotics are adjusted by the infectious disease services hemodynamic status stable 05/08/17- This is an 82-year-old male patient who came into the emergency department on 05/02/2017 from an extended care facility. Patient was noted to have a potassium of 6.4 at the extended care facility and therefore they sent him over. The patient did not have any further complaints and he has intermittent confusion which is his baseline. EKG performed in the emergency room did show sinus rhythm with occasional PVCs, patient had no ST segment elevation or depression or T-wave abnormalities. The patient was put on lactulose. Hypertension is also being worked up for possible rectal mass and will undergo colonoscopy when stable with Dr. Piña. All labs and reports have been reviewed. Patient is being seen and examined today on the sixth floor for pulmonary services related to progression of shortness of breath over the last few days. He has had a cough however denies any congestion. Nursing staff has denied any sputum production. He is alert and oriented 1 with intermittent confusion. Has been afebrile. Currently is on 3 L of supplemental oxygen via nasal cannula. It is unclear if the patient utilized oxygen in the extended care facility setting. Patient is also on a mechanical soft diet with aspiration precautions. 05/09/17- this patient is being evaluated and examined and seen on rounds today. All labs and reports were reviewed. The patient hyperkalemia has improved. The white blood cell count has come down to 12.8. Patient was noted to have increased lethargy and decreased cognition yesterday afternoon therefore a neurology consult was initiated. Patient is going for a CT of the brain as well as an EEG today. Patient's speech is noted to be slightly slurred and mumbled. Overnight he was noted to refuse care, had increase in agitation, and was refusing food and fluids. and primary care were updated. 05/10/17- this patient is being evaluated exam and seen today on the selective care unit. All labs and reports have been reviewed. Patient appears more awake today than previously. Patient did undergo a CT of the brain and EEG yesterday. Neurology and nephrology is on consult. Patient's prognosis is guarded and he has multiple comorbidities. Upon examination the patient's resting up in bed on room air states he occasionally has shortness of breath with exertion. He denies any cough or congestion at this time. Discharge planning is in process and appears the patient will go back to extended care facility when discharged. 05/11/17- patient is being seen in evaluated and examined today on the fifth floor. Patient is known to be slightly tired however is easily awoken. Currently he is resting up in bed on room air. Patient noticed to have a faint light red flat erythema rash to his right lateral chest. He denies any itching or pain. The area is small and diffuse. We will continue to monitor this. He does have Lotrisone cream for the area. On examination he denies any shortness of breath cough or congestion. Family at bedside updated on plan of care. 05/12/17- patient is being seen examined and evaluated today on the floor. The patient continues to be tired however is easily aroused upon examination. No further progression is noted of his rash to the right lateral chest. On examination patient's resting up in bed on room air. Shortness of breath as noted with exertion. Intermittent cough. He is afebrile, no overnight events. 05/13/17- patient is being seen examined and evaluated today on the floor. On examination the patient is resting in bed on room air, continues with shortness of breath on exertion. According to the nursing staff during breakfast the patient was coughing and choking and has dysphagia diet. Continue swallow evaluation with speech therapy has been ordered. Patient seen and evaluated examined today given that he has significant risk of aspiration and aspiration related complication and likelihood of recovery from that is very poor patient is now being considered for PEG tube placement which is being planned for today, from respiratory standpoint however doing fairly well still of intermittent cough and congestion but no significant desaturation he does get short of breath on activity and exertion Patient seen and evaluated examined during the rounds on 05/16/2017, patient is awake but remains extremely confused, patient is currently going swallow evaluation even with honey thick nectar and half a spoon very slow patient continued to have coughing spells suggestive of ongoing aspiration, on examination patient does have coarse breath sounds however no clear hearing gurgling is seen or noted, given presence of significant aspiration patient will need to be reevaluated for alternative means of nutrition support 05/08/17- This is an 82-year-old male patient who came into the emergency department on 05/02/2017 from an extended care facility. Patient was noted to have a potassium of 6.4 at the extended care facility and therefore they sent him over. The patient did not have any further complaints and he has intermittent confusion which is his baseline. EKG performed in the emergency room did show sinus rhythm with occasional PVCs, patient had no ST segment elevation or depression or T-wave abnormalities. The patient was put on lactulose. Hypertension is also being worked up for possible rectal mass and will undergo colonoscopy when stable with Dr. Piña. All labs and reports have been reviewed. Patient is being seen and examined today on the sixth floor for pulmonary services related to progression of shortness of breath over the last few days. He has had a cough however denies any congestion. Nursing staff has denied any sputum production. He is alert and oriented 1 with intermittent confusion. Has been afebrile. Currently is on 3 L of supplemental oxygen via nasal cannula. It is unclear if the patient utilized oxygen in the extended care facility setting. Patient is also on a mechanical soft diet with aspiration precautions. 05/09/17- this patient is being evaluated and examined and seen on rounds today. All labs and reports were reviewed. The patient hyperkalemia has improved. The white blood cell count has come down to 12.8. Patient was noted to have increased lethargy and decreased cognition yesterday afternoon therefore a neurology consult was initiated. Patient is going for a CT of the brain as well as an EEG today. Patient's speech is noted to be slightly slurred and mumbled. Overnight he was noted to refuse care, had increase in agitation, and was refusing food and fluids. and primary care were updated. 05/10/17- this patient is being evaluated exam and seen today on the selective care unit. All labs and reports have been reviewed. Patient appears more awake today than previously. Patient did undergo a CT of the brain and EEG yesterday. Neurology and nephrology is on consult. Patient's prognosis is guarded and he has multiple comorbidities. Upon examination the patient's resting up in bed on room air states he occasionally has shortness of breath with exertion. He denies any cough or congestion at this time. Discharge planning is in process and appears the patient will go back to extended care facility when discharged. 05/11/17- patient is being seen in evaluated and examined today on the fifth floor. Patient is known to be slightly tired however is easily awoken. Currently he is resting up in bed on room air. Patient noticed to have a faint light red flat erythema rash to his right lateral chest. He denies any itching or pain. The area is small and diffuse. We will continue to monitor this. He does have Lotrisone cream for the area. On examination he denies any shortness of breath cough or congestion. Family at bedside updated on plan of care. 05/12/17- patient is being seen examined and evaluated today on the floor. The patient continues to be tired however is easily aroused upon examination. No further progression is noted of his rash to the right lateral chest. On examination patient's resting up in bed on room air. Shortness of breath as noted with exertion. Intermittent cough. He is afebrile, no overnight events. 05/13/17- patient is being seen examined and evaluated today on the floor. On examination the patient is resting in bed on room air, continues with shortness of breath on exertion. According to the nursing staff during breakfast the patient was coughing and choking and has dysphagia diet. Continue swallow evaluation with speech therapy has been ordered. Objective - Vital Signs Vital signs: Vital Signs Temp 100.0 F H 05/19/17 07:00 Pulse 132 H 05/19/17 07:28 Resp 20 05/19/17 07:00 BP 132/72 05/19/17 07:00 Pulse Ox 100 05/19/17 07:00 Intake & Output 05/18/17 05/19/17 05/19/17 18:59 06:59 18:59 Intake Total 950 400 Balance 950 400 Weight 58.5 kg 60 kg Intake: IV 550 Intake, IV Titration 400 400 Amount Dextrose 5% in Water 1, 400 400 000 ml @ 50 mls/hr IV . Q20H [facility] Rx#:[id number] Other: Voiding Method Diaper Diaper Diaper Incontinent Incontinent Incontinent # Voids 1 # Bowel Movements 1 # Emeses 2 - Exam GENERAL EXAM: Alert, intermittent confusion noted which is baseline, comfortable in no apparent distress. HEAD: Normocephalic. EYES: Normal reaction of pupils, equal size. NOSE: Clear with pink turbinates. THROAT: No erythema or exudates. NECK: No masses, no JVD. CHEST: No chest wall deformity. LUNGS: Equal air entry with no crackles, wheeze, rhonchi or dullness. Breath sounds decreased bilaterally. CVS: S1 and S2 normal with no audible mumurs, regular rhythm. ABDOMEN: No hepatosplenomegaly, normal bowel sounds, no guarding or rigidity. EXTREMITIES: +2 edema noted, pedal pulses palpable. Chronic skin changes noted , bilateral legs wrapped SKIN: Multiple skin tears, flat erythema diffuse rash to right lateral chest, cream applied CENTRAL NERVOUS SYSTEM: No focal deficits, moves all 4 extremities. - Labs CBC & Chem 7: 05/18/17 06:24 05/18/17 06:24 Assessment and Plan Plan: Recurrent intermittent aspiration with episodes of silent aspiration patient is status post PEG tube placement Urinary tract infection, culture positive for gram negatives bacilli and E. coli , which appears to be ESBL, IVS adjust antibiotics Acute hypoxic respiratory failure, with recurrent aspiration Hyperkalemia, improved Acute renal failure Sepsis with fever, gram-negative Hypernatremia likely related to decreased oral intake Probable rectal mass, currently being worked up Diarrhea History of CVA Plan As dictated above consider alternate medius mode of nutritional support Patient is currently being worked up for discharge planning to extended care facility, we'll follow and observe Medications have been reviewed and will be continued as ordered. Patient's prognosis is guarded. Patient known to be resistive to care and medical treatment. Continue to monitor electrolytes. Continue with pulmonary hygiene, coughing and deep breathing exercises, and supportive care. Supplemental oxygen to maintain oxygen saturations of 92% or better. Continue nebulizer treatments in the form of DuoNeb and budesonide. . GI and DVT prophylaxis. Appreciate consults recommendations. We will continue to monitor labs/results and adjust treatment as necessary. Further recommendations pending. Time with Patient: Greater than 30
[2017-05-19] MEDS: HYDROcodone/APAP 15 ML SOLUTION PEG/G-TUBE PRN (15:29)
[2017-05-19] MEDS: DEXTROSE 5% IN WATER 1,000 ML IV SCH (15:31)
--- NOTE | 2017-05-19 15:53 | XR ---
EXAMINATION TYPE: XR chest 1V portable DATE OF EXAM: 05/19/2017 COMPARISON: 05/11/2017 HISTORY: Hypoxemia TECHNIQUE: Single frontal view of the chest is obtained. FINDINGS: There are low lung volumes with obscuration of the retrocardiac airspace and left hemidiap hragm. This may relate to atelectasis and/or pneumonia. Left costophrenic angle is not well delineate d and likely is related to atelectasis. The cardiac silhouette size is stable. The osseous structu res are intact. IMPRESSION: Retrocardiac opacity which may relate to atelectasis and/or pneumonia in the appropriate clinical setting.
[2017-05-19 16:48] LABS: Glucose,Whole Blood 134 mg/dL (75-99)
[2017-05-19] MEDS ORDERED: MEROPENEM 1 GM in SODIUM CHLORIDE 0.9% 100 ML IVPB ONE (17:30)
[2017-05-19 17:40] LABS: Potassium 3.8 mmol/L (3.5-5.1); Total Bilirubin 0.4 mg/dL (0.2-1.3); Total Protein 5.1 g/dL (6.3-8.2)
[2017-05-19 17:43] LABS: Appearance,Urine Cloudy (Clear); Bacteria,Urine Rare /hpf; Bilirubin,Urine Negative (Negative); Glucose,Urine (UA) Negative (Negative); Ketones,Urine Negative (Negative); Leukocyte Esterase,Urine Large (Negative); Mucus,Urine Rare /hpf; Nitrite,Urine Negative (Negative); PH, Urine 5.5 (5.0-8.0); Particle Count 3784; Protein,Urine 1+ (Negative); RBC,Urine 35 /hpf (0-5); Specific Gravity,Urine 1.015 (1.001-1.035); UA Billing (MACRO vs. MICRO) MICRO; WBC,Urine 179 /hpf (0-5)
[2017-05-19 17:44] LABS: INR 1.2 (<1.2); Partial Thromboplastin Time 27.9 sec (22.0-30.0); Prothrombin Time 11.9 sec (9.0-12.0)
[2017-05-19 17:50] LABS: Anisocytosis Slight; Basophils # (A) 0.1 k/uL (0-0.2); Basophils % (A) 0 %; CH 30.5; CHCM 30.9; Eosinophils # (A) 0.1 k/uL (0-0.7); Eosinophils % (A) 0 %; HCT 37.1 % (39.0-53.0); HDW 2.96; HGB 11.7 gm/dL (13.0-17.5); Hypochromasia Moderate; Luc # (Auto) 0.33; Luc % (Auto) 1; Lymphocytes # (A) 1.3 k/uL (1.0-4.8); Lymphocytes % (A) 5 %; MCH 31.2 pg (25.0-35.0); MCHC 31.5 g/dL (31.0-37.0); MCV 99.3 fL (80.0-100.0); Macrocytosis Slight; Mean Platelet Volume 8.9; Monocytes % (A) 4 %; Neutrophils # (A) 21.9 k/uL (1.3-7.7); Neutrophils % (A) 89 %; RBC 3.73 m/uL (4.30-5.90); RDW 16.1 % (11.5-15.5); WBC 24.7 k/uL (3.8-10.6); WBC (Perox) 26.57
[2017-05-19 17:51] LABS: Creatine Kinase MB 1.7 ng/mL (0.0-2.4); Troponin I 0.024 ng/mL (0.000-0.034)
[2017-05-19] MEDS: SODIUM CHLORIDE 0.9% 1,000 ML IV SCH (18:48)
[2017-05-19] MEDS: SODIUM CHLORIDE 0.9% 500 ML IV SCH ×3 (18:49→18:51)
--- NOTE | 2017-05-19 19:48 | PN ---
DATE OF SERVICE: 05/19/17 I am covering for Dr. Anderson. HISTORY OF PRESENT ILLNESS: This 82-year-old gentleman was admitted with acute renal failure also had possibly sepsis with E. coli also. The patient is on broad spectrum IV antibiotics. The patient also had hypoxia. The most recent chest x-ray showed possible pneumonia or atelectasis. The patient is being transferred to ICU at this time. Past medical history reviewed. REVIEW OF SYSTEMS: Could not be taken. The patient is stuporous. Current medications are reviewed and include: 1. Tylenol 650 q4h prn. 2. [place] elixir. 3. DuoNeb q.i.d. and prn. 4. Pulmicort. 5. Plavix. 6. Valium. 7. Lovenox. 8. Claritin. 9. Ativan. 10. Lopressor. 11. Zofran. 12. Senokot-S. 13. Visine eye drops. PHYSICAL EXAMINATION: Pulse 108. Blood pressure 98/54. Respiratory rate 20. Temperature 100 degrees. Pulse ox 92% on 2 L. HEENT: Conjunctivae normal. Neck: No JVD. CARDIOVASCULAR: S1, S2 muffled. Respiratory: Breath sounds diminished at the bases. A few scattered rhonchi and crackles. Abdomen soft. Nontender. No mass palpable. LEGS: No edema. No swelling. EDDY CURRENT INSPECTOR: Higher functions as mentioned earlier. Moves all four limits. No focal deficits. Lymphatics: No lymph nodes palpable in the neck, axilla and groin. SKIN: No ulcer, rash or bleeding. LABS: WBC 19, hemoglobin 12. ASSESSMENT: 1. Acute renal failure, possible prerenal factors. 2. E. coli sepsis and multiorgan dysfunction. 3. CVA/TIA. 4. Change in mental status, acute on chronic, acute metabolic encephalopathy. 5. Hypokalemia. 6. Increased WBC. RECOMMENDATIONS: In this 82 -year-old gentleman who presented with multiple complex medical issues, we will monitor the patient closely. The patient will be transferred to ICU. Continue the current medications. Monitor closely. Continue bronchodilators. Currently the patient is on Meropenem. We will continue to monitor. Dr. Anderson will follow. Prognosis guarded. MTDD
[2017-05-19] MEDS ORDERED: NOREPINEPHRIN 4 MG-0.9% NS PMX 4 MG/250 ML ML IV ONE (19:50)
[2017-05-19] MEDS ORDERED: SODIUM CHLORIDE 0.9% 1,000 ML IV ONE (19:57)
[2017-05-19] MEDS: NOREPINEPHRIN 4 MG-0.9% NS PMX 4 MG/250 ML ML IV SCH (20:00)
[2017-05-19 20:59] LABS: Creatine Kinase MB 1.9 ng/mL (0.0-2.4); Troponin I 0.027 ng/mL (0.000-0.034)
--- NOTE | 2017-05-19 21:59 | P.PN ---
Subjective Franco Hill is a 82-year-old right-handed white male who was initially admitted to [facility] on 05/02/2017 for evaluation of sepsis and weakness. Patient was seen in neurology consultation initially back on . He was found to have evidence at that time of diffuse metabolic encephalopathy and acute renal failure. He was also being treated for gram- negative sepsis with organ dysfunction. He has been seen by infectious disease and is followed by Dr. Kenney. The patient apparently was started on symptom feedings early this afternoon and had significant residuals averaging 65 200 mL. The patient also spiked a temperature this afternoon to 101 degrees Fahrenheit. He developed symptoms of hypotension which persisted. Patient was transferred to the intensive care unit where he is now being seen in neurology follow-up. The patient is resting comfortably. He does not appear to be in acute pain. He is able to follow some simple commands. His temperature is now back to normal and is noted to be orally at 97.9. The patient was started on 5 mics of Levophed due to the severe hypotension. His CODE STATUS as per family remains full CODE STATUS at this time. Due to the change in his level of function we have recommended a stat computed tomography scan of the brain to be done this evening to rule out any acute intracranial lesion or other abnormalities. We will also plan to get a follow-up EEG for the patient tomorrow morning. Case was discussed today at length with Dr. Kenney from infectious disease who agrees with our current treatment plan. We will continue close monitoring of this patient in the intensive care unit. His overall prognosis at this time remains very guarded. Objective - Vital Signs Vital signs: Vital Signs Temp 99.6 F 05/19/17 17:26 Pulse 126 H 05/19/17 20:10 Resp 21 05/19/17 20:10 BP 98/52 05/19/17 20:10 Pulse Ox 96 05/19/17 20:00 Intake & Output 05/19/17 05/19/17 05/20/17 06:59 18:59 06:59 Intake Total 400 3050 Output Total 10 Balance 400 3040 Weight 60 kg Intake: Intake, IV Titration 400 3000 Amount Dextrose 5% in Water 1, 400 000 ml @ 50 mls/hr IV . Q20H [facility] Rx#:[id number] Sodium Chloride 0.9% 1, 3000 000 ml @ 999 mls/hr IV . Q1H1M [facility] Rx#:[id number] Tube Feeding 50 Output: Urine 10 Other: Voiding Method Diaper Diaper Incontinent Incontinent # Voids 1 # Bowel Movements 0 # Emeses 2 - Exam Physical examination: PHYSICAL EXAMINATION: Patient is resting comfortably in bed. Patient is somewhat lethargic but easily arousable. He does follow simple commands. VITAL SIGNS: Blood pressure is [98/52]. Heart rate is [126]. Respiration is [21] . Temperature is [97. 9 orally]. HEENT: Head is atraumatic, neck is supple, there were no carotid bruits. CHEST: Lungs are clear to auscultation and percussion. CARDIAC: S1, S2 normal rate and rhythm. There is no murmur. ABDOMEN: Soft and nontender. Bowel sounds are present. EXTREMITIES: There is no pedal edema. Peripheral pulses are present. Neurological examination: Patient was transferred to the intensive care unit this evening. He is resting comfortably. He is alert and oriented 2. He is able to follow simple commands. He has generalized weakness. Deep tendon reflexes are 1+ and symmetric. Plantar responses flexor bilaterally. Coordination and gait cannot be assessed in this patient at this time. - Labs CBC & Chem 7: 05/19/17 15:46 05/19/17 15:46 Labs: Abnormal Lab Results - Last 24 Hours (Table) 05/19/17 05/19/17 05/19/17 Range/Units 15:46 15:46 15:46 WBC 24.7 H (3.8-10.6) k/uL RBC 3.73 L (4.30-5.90) m/uL Hgb 11.7 L (13.0-17.5) gm/dL Hct 37.1 L (39.0-53.0) % RDW 16.1 H (11.5-15.5) % Plt Count 545 H (150-450) k/uL Neutrophils # 21.9 H (1.3-7.7) k/uL INR 1.2 H (<1.2) Chloride (98-107) mmol/L Creatinine (0.66-1.25) mg/dL Glucose (74-99) mg/dL POC Glucose (mg/dL) (75-99) mg/dL Plasma Lactic Acid Froy 2.3 H* (0.7-2.0) mmol/L Calcium (8.4-10.2) mg/dL Alkaline Phosphatase (38-126) U/L Total Creatine Kinase (55-170) U/L Total Protein (6.3-8.2) g/dL Albumin (3.5-5.0) g/dL Urine Protein (Negative) Urine Blood (Negative) Ur Leukocyte Esterase (Negative) Urine RBC (0-5) /hpf Urine WBC (0-5) /hpf Urine Bacteria (None) /hpf Hyaline Casts (0-2) /lpf Urine Mucus (None) /hpf Urine Yeast (Budding) (None) /hpf 05/19/17 05/19/17 05/19/17 Range/Units 15:46 15:46 16:45 WBC (3.8-10.6) k/uL RBC (4.30-5.90) m/uL Hgb (13.0-17.5) gm/dL Hct (39.0-53.0) % RDW (11.5-15.5) % Plt Count (150-450) k/uL Neutrophils # (1.3-7.7) k/uL INR (<1.2) Chloride 109 H (98-107) mmol/L Creatinine 1.40 H (0.66-1.25) mg/dL Glucose 136 H (74-99) mg/dL POC Glucose (mg/dL) 134 H (75-99) mg/dL Plasma Lactic Acid Froy (0.7-2.0) mmol/L Calcium 8.0 L (8.4-10.2) mg/dL Alkaline Phosphatase 132 H (38-126) U/L Total Creatine Kinase 44 L (55-170) U/L Total Protein 5.1 L (6.3-8.2) g/dL Albumin 2.3 L (3.5-5.0) g/dL Urine Protein (Negative) Urine Blood (Negative) Ur Leukocyte Esterase (Negative) Urine RBC (0-5) /hpf Urine WBC (0-5) /hpf Urine Bacteria (None) /hpf Hyaline Casts (0-2) /lpf Urine Mucus (None) /hpf Urine Yeast (Budding) (None) /hpf 05/19/17 Range/Units 17:05 WBC (3.8-10.6) k/uL RBC (4.30-5.90) m/uL Hgb (13.0-17.5) gm/dL Hct (39.0-53.0) % RDW (11.5-15.5) % Plt Count (150-450) k/uL Neutrophils # (1.3-7.7) k/uL INR (<1.2) Chloride (98-107) mmol/L Creatinine (0.66-1.25) mg/dL Glucose (74-99) mg/dL POC Glucose (mg/dL) (75-99) mg/dL Plasma Lactic Acid Froy (0.7-2.0) mmol/L Calcium (8.4-10.2) mg/dL Alkaline Phosphatase (38-126) U/L Total Creatine Kinase (55-170) U/L Total Protein (6.3-8.2) g/dL Albumin (3.5-5.0) g/dL Urine Protein 1+ H (Negative) Urine Blood Small H (Negative) Ur Leukocyte Esterase Large H (Negative) Urine RBC 35 H (0-5) /hpf Urine WBC 179 H (0-5) /hpf Urine Bacteria Rare H (None) /hpf Hyaline Casts 3 H (0-2) /lpf Urine Mucus Rare H (None) /hpf Urine Yeast (Budding) Occasional H (None) /hpf Assessment and Plan (1) Acute metabolic encephalopathy Status: Acute Code(s): G93.41 - METABOLIC ENCEPHALOPATHY (2) Gram-negative sepsis with organ dysfunction Status: Acute Code(s): A41.50 - GRAM-NEGATIVE SEPSIS, UNSPECIFIED; R65.20 - SEVERE SEPSIS WITHOUT SEPTIC SHOCK (3) Acute renal failure Status: Acute Code(s): N17.9 - ACUTE KIDNEY FAILURE, UNSPECIFIED (4) Febrile illness Status: Acute Code(s): R50.9 - FEVER, UNSPECIFIED Plan: This patient is a 82-year-old male who was initially admitted to Hospital with symptoms of increasing weakness and sepsis. Today he was on the medical floor and developed residual retention of his tube feedings. He then spiked a temperature of 101F. He then showed signs of severe hypotension. He was transferred to the intensive care unit this evening where he is now been examined. Patient was started on 5 mics of Levophed due to the hypotension. We have arranged for a stat computed tomography scan of the brain to be done this evening for further evaluation. The patient is afebrile at this time. He is being followed closely by infectious disease and Dr. Kenney for gram- negative sepsis. He is on antibiotic coverage. We will continue close neurological follow-up of this patient in the intensive care unit. We will plan to get a follow-up EEG tomorrow for comparison and long-term prognosis for this patient who is critically ill at this time. His overall prognosis at this time remains very guarded. Time with Patient: Greater than 30
[2017-05-19] MEDS: SENNOSIDES-DOCUSATE SODIUM 1 EACH TAB PO SCH (23:03)
--- NOTE | 2017-05-20 | CT ---
EXAM: CT Head Without Intravenous Contrast CLINICAL HISTORY: Reason: Altered mental status and sepsis. TECHNIQUE: Axial computed tomography images of the head/brain without intravenous contrast. DLP is 1060.50 mGy-cm. This CT exam was performed using one or more of the following dose reduction techniques: automated exposure control, adjustment of the mA and/or kV according to patient size, and/or use of iterative reconstruction technique. COMPARISON: 05/09/17 FINDINGS: Brain: Stable encephalomalacia in the right cerebellar hemisphere. Periventricular white matter hypodensities likely relating to chronic small vessel ischemic changes. No hemorrhage. Ventricles: Unremarkable. No ventriculomegaly. Bones/joints: Unremarkable. No acute fracture. Soft tissues: Unremarkable. Sinuses: Unremarkable as visualized. No acute sinusitis. Mastoid air cells: Unremarkable as visualized. No mastoid effusion. Other findings: Generalized atrophy. IMPRESSION: No acute findings. Stable generalized atrophy, chronic small vessel ischemic changes, and encephalomalacia in the right cerebellar hemisphere.
[2017-05-20 04:43] LABS: Basophils # (A) 0.1 k/uL (0-0.2); Basophils % (A) 0 %; CH 30.6; CHCM 31.5; Eosinophils # (A) 0.6 k/uL (0-0.7); Eosinophils % (A) 2 %; HCT 32.4 % (39.0-53.0); HDW 3.05; HGB 10.2 gm/dL (13.0-17.5); Hypochromasia Slight; Luc # (Auto) 0.33; Luc % (Auto) 1; Lymphocytes # (A) 1.8 k/uL (1.0-4.8); Lymphocytes % (A) 6 %; MCH 30.9 pg (25.0-35.0); MCHC 31.6 g/dL (31.0-37.0); MCV 97.8 fL (80.0-100.0); Macrocytosis Slight; Monocytes # (A) 1.3 k/uL (0-1.0); Monocytes % (A) 4 %; Neutrophils # (A) 28.1 k/uL (1.3-7.7); Neutrophils % (A) 87 %; RBC 3.31 m/uL (4.30-5.90); WBC (Perox) 32.75
[2017-05-20 04:54] LABS: WBC 32.2 k/uL (3.8-10.6)
[2017-05-20 05:24] LABS: Anion Gap 4 mmol/L; Blood Urea Nitrogen 19 mg/dL (9-20); Calcium 7.2 mg/dL (8.4-10.2); Carbon Dioxide 20 mmol/L (22-30); Chloride 117 mmol/L (98-107); Glucose 118 mg/dL (74-99); Non-African American GFR(MDRD) 53 (>60 ml/min/1.73 sqM); Potassium 4.3 mmol/L (3.5-5.1); Sodium 141 mmol/L (137-145)
[2017-05-20] MEDS: SODIUM CHLORIDE 0.9% 1,000 ML IV SCH (05:25)
[2017-05-20 05:34] LABS: Creatine Kinase MB 1.9 ng/mL (0.0-2.4)
[2017-05-20 05:36] LABS: Troponin I 0.031 ng/mL (0.000-0.034)
[2017-05-20] MEDS: ENOXAPARIN 40 MG/0.4 ML SYRINGE SQ SCH (05:46)
[2017-05-20] MEDS: IPRATROPIUM-ALBUTEROL 3 ML NEB INHALATION SCH ×3 (07:28→20:55)
[2017-05-20] MEDS: BUDESONIDE 0.5 MG/2 ML NEBU INHALATION SCH ×2 (07:28→20:55)
--- NOTE | 2017-05-20 08:16 | P.PN ---
Subjective Principal diagnosis: Fever spike. This is a continuing progress note on an 82-year-old white male essentially omitted for metabolic encephalopathy. He is had intermittent dysphagia and therefore had feeding tube placed this weekend. However, he spiked a temperature after being discontinued from IV antibiotic treatment after about 2 weeks of Zosyn therapy. We are attempting to transition to ECF after feeding tube was placed. However, he is not continue become tachycardic. Cardiology has titrated Lopressor in the past. Otherwise, the patient is with poor mentation and unable answer questions appropriately. He now continues to him about 5 mg Levophed Objective - Vital Signs Vital signs: Vital Signs Temp 99.1 F 05/20/17 04:00 Pulse 139 H 05/20/17 06:00 Resp 37 H 05/20/17 06:00 BP 96/43 05/20/17 06:00 Pulse Ox 93 L 05/20/17 07:51 Intake & Output 05/19/17 05/20/17 05/20/17 18:59 06:59 18:59 Intake Total 3050 790 95 Output Total 10 100 10 Balance 3040 690 85 Weight 60 kg 64.2 kg Intake: IV 450 75 Sodium Chloride 0.9% 1, 450 75 000 ml @ 75 mls/hr IV . [id number] [facility] Rx#:[id number] Intake, IV Titration 3000 190 Amount Sodium Chloride 0.9% 1, 3000 190 000 ml @ 999 mls/hr IV . Q1H1M [facility] Rx#:[id number] Tube Feeding 50 150 20 Output: Gastric Drainage 0 Urine 10 100 10 Other: Voiding Method Diaper Indwelling Catheter Incontinent # Voids 1 # Bowel Movements 0 # Emeses 2 - Constitutional General appearance: Present: average body habitus - EENT Eyes: Absent: abnormal pupil - Respiratory Respiratory: bilateral: diminished - Cardiovascular Heart rate: 150 - Gastrointestinal General gastrointestinal: Present: soft. Absent: tenderness - Psychiatric Psychiatric: Present: A&O x's 3 - Labs CBC & Chem 7: 05/20/17 04:16 05/20/17 04:16 Labs: Abnormal Lab Results - Last 24 Hours (Table) 05/19/17 05/19/17 05/19/17 Range/Units 15:46 15:46 15:46 WBC 24.7 H (3.8-10.6) k/uL RBC 3.73 L (4.30-5.90) m/uL Hgb 11.7 L (13.0-17.5) gm/dL Hct 37.1 L (39.0-53.0) % RDW 16.1 H (11.5-15.5) % Plt Count 545 H (150-450) k/uL Neutrophils # 21.9 H (1.3-7.7) k/uL Monocytes # (0-1.0) k/uL INR 1.2 H (<1.2) Chloride (98-107) mmol/L Carbon Dioxide (22-30) mmol/L Creatinine (0.66-1.25) mg/dL Glucose (74-99) mg/dL POC Glucose (mg/dL) (75-99) mg/dL Plasma Lactic Acid Froy 2.3 H* (0.7-2.0) mmol/L Calcium (8.4-10.2) mg/dL Alkaline Phosphatase (38-126) U/L Total Creatine Kinase (55-170) U/L Total Protein (6.3-8.2) g/dL Albumin (3.5-5.0) g/dL Urine Protein (Negative) Urine Blood (Negative) Ur Leukocyte Esterase (Negative) Urine RBC (0-5) /hpf Urine WBC (0-5) /hpf Urine Bacteria (None) /hpf Hyaline Casts (0-2) /lpf Urine Mucus (None) /hpf Urine Yeast (Budding) (None) /hpf 05/19/17 05/19/17 05/19/17 Range/Units 15:46 15:46 16:45 WBC (3.8-10.6) k/uL RBC (4.30-5.90) m/uL Hgb (13.0-17.5) gm/dL Hct (39.0-53.0) % RDW (11.5-15.5) % Plt Count (150-450) k/uL Neutrophils # (1.3-7.7) k/uL Monocytes # (0-1.0) k/uL INR (<1.2) Chloride 109 H (98-107) mmol/L Carbon Dioxide (22-30) mmol/L Creatinine 1.40 H (0.66-1.25) mg/dL Glucose 136 H (74-99) mg/dL POC Glucose (mg/dL) 134 H (75-99) mg/dL Plasma Lactic Acid Froy (0.7-2.0) mmol/L Calcium 8.0 L (8.4-10.2) mg/dL Alkaline Phosphatase 132 H (38-126) U/L Total Creatine Kinase 44 L (55-170) U/L Total Protein 5.1 L (6.3-8.2) g/dL Albumin 2.3 L (3.5-5.0) g/dL Urine Protein (Negative) Urine Blood (Negative) Ur Leukocyte Esterase (Negative) Urine RBC (0-5) /hpf Urine WBC (0-5) /hpf Urine Bacteria (None) /hpf Hyaline Casts (0-2) /lpf Urine Mucus (None) /hpf Urine Yeast (Budding) (None) /hpf 05/19/17 05/20/17 05/20/17 Range/Units 17:05 04:16 04:16 WBC 32.2 H* (3.8-10.6) k/uL RBC 3.31 L (4.30-5.90) m/uL Hgb 10.2 L (13.0-17.5) gm/dL Hct 32.4 L (39.0-53.0) % RDW 16.0 H (11.5-15.5) % Plt Count (150-450) k/uL Neutrophils # 28.1 H (1.3-7.7) k/uL Monocytes # 1.3 H (0-1.0) k/uL INR (<1.2) Chloride 117 H (98-107) mmol/L Carbon Dioxide 20 L (22-30) mmol/L Creatinine 1.30 H (0.66-1.25) mg/dL Glucose 118 H (74-99) mg/dL POC Glucose (mg/dL) (75-99) mg/dL Plasma Lactic Acid Froy (0.7-2.0) mmol/L Calcium 7.2 L (8.4-10.2) mg/dL Alkaline Phosphatase (38-126) U/L Total Creatine Kinase (55-170) U/L Total Protein (6.3-8.2) g/dL Albumin (3.5-5.0) g/dL Urine Protein 1+ H (Negative) Urine Blood Small H (Negative) Ur Leukocyte Esterase Large H (Negative) Urine RBC 35 H (0-5) /hpf Urine WBC 179 H (0-5) /hpf Urine Bacteria Rare H (None) /hpf Hyaline Casts 3 H (0-2) /lpf Urine Mucus Rare H (None) /hpf Urine Yeast (Budding) Occasional H (None) /hpf Microbiology - Last 24 Hours (Table) 05/19/17 17:05 Urine Culture - Preliminary Urine,Catheterized Assessment and Plan (1) Acute renal failure Status: Acute (2) Gram-negative sepsis with organ dysfunction Status: Acute (3) CVA (cerebral vascular accident) Status: Acute Plan: Continue current regimen of treatment. Again, I have discussed overall prognosis with his spouse, who at as of 5 days ago wishes to have everything done including full resuscitation. Prognosis is guarded secondary to his multiple comorbidities. We'll continue to follow. Check CBC and CMP in a.m. Time with Patient: Greater than 30
--- NOTE | 2017-05-20 08:41 | XR ---
EXAMINATION TYPE: XR chest 1V DATE OF EXAM: 05/20/2017 COMPARISON: 05/19/2017 HISTORY: Shortness of breath TECHNIQUE: Single frontal view of the chest is obtained. FINDINGS: Diffuse interstitial pattern with bilateral consolidation small effusion. Arthropathy of t he shoulders. No pneumothorax. IMPRESSION: Correlate for CHF. Underlying pneumonia not excluded.
[2017-05-20] MEDS: METOPROLOL TARTRATE 50 MG TAB PO SCH ×4 (08:49→22:40)
[2017-05-20] MEDS: NOREPINEPHRIN 4 MG-0.9% NS PMX 4 MG/250 ML ML IV SCH (08:52)
--- NOTE | 2017-05-20 09:01 | P.PN ---
Subjective Principal diagnosis: Aspiration, status post PEG tube placement The patient was moved to the ICU with continuing decline in his condition. He' s been tachycardic. Nursing notes that he has a lot of secretions coming out of his mouth. He is on PEG tube feedings at 20 mL's an hour. No significant residual was noted. Objective - Vital Signs Vital signs: Vital Signs Temp 100.4 F H 05/20/17 08:00 Pulse 140 H 05/20/17 08:00 Resp 20 05/20/17 08:00 BP 115/61 05/20/17 08:00 Pulse Ox 90 L 05/20/17 08:00 Intake & Output 05/19/17 05/20/17 05/20/17 18:59 06:59 18:59 Intake Total 3050 790 431.25 Output Total 10 100 15 Balance 3040 690 416.25 Weight 60 kg 64.2 kg Intake: IV 450 150 Sodium Chloride 0.9% 1, 450 150 000 ml @ 75 mls/hr IV . [id number] [facility] Rx#:[id number] Intake, IV Titration 3000 190 241.25 Amount Norepinephrin 4 mg-0.9% 241.25 Ns Pmx 4 mg In 250 ml @ Titrate IV .Q0M [facility] Rx#: [id number] Sodium Chloride 0.9% 1, 3000 190 000 ml @ 999 mls/hr IV . Q1H1M [facility] Rx#:[id number] Tube Feeding 50 150 40 Output: Gastric Drainage 0 Urine 10 100 15 Other: Voiding Method Diaper Indwelling Catheter Incontinent # Voids 1 # Bowel Movements 0 # Emeses 2 - Constitutional Constitutional Comment(s): Confuse, response to - Respiratory Respiratory: right: CTA, bilateral: diminished (At the bases) - Cardiovascular Details: Tachycardic - Gastrointestinal Gastrointestinal Comment(s): PEG tube site is without cellulitis General gastrointestinal: Present: soft. Absent: tenderness - Labs CBC & Chem 7: 05/20/17 04:16 05/20/17 04:16 Labs: Abnormal Lab Results - Last 24 Hours (Table) 05/19/17 05/19/17 05/19/17 Range/Units 15:46 15:46 15:46 WBC 24.7 H (3.8-10.6) k/uL RBC 3.73 L (4.30-5.90) m/uL Hgb 11.7 L (13.0-17.5) gm/dL Hct 37.1 L (39.0-53.0) % RDW 16.1 H (11.5-15.5) % Plt Count 545 H (150-450) k/uL Neutrophils # 21.9 H (1.3-7.7) k/uL Monocytes # (0-1.0) k/uL INR 1.2 H (<1.2) Chloride (98-107) mmol/L Carbon Dioxide (22-30) mmol/L Creatinine (0.66-1.25) mg/dL Glucose (74-99) mg/dL POC Glucose (mg/dL) (75-99) mg/dL Plasma Lactic Acid Froy 2.3 H* (0.7-2.0) mmol/L Calcium (8.4-10.2) mg/dL Alkaline Phosphatase (38-126) U/L Total Creatine Kinase (55-170) U/L Total Protein (6.3-8.2) g/dL Albumin (3.5-5.0) g/dL Urine Protein (Negative) Urine Blood (Negative) Ur Leukocyte Esterase (Negative) Urine RBC (0-5) /hpf Urine WBC (0-5) /hpf Urine Bacteria (None) /hpf Hyaline Casts (0-2) /lpf Urine Mucus (None) /hpf Urine Yeast (Budding) (None) /hpf 05/19/17 05/19/17 05/19/17 Range/Units 15:46 15:46 16:45 WBC (3.8-10.6) k/uL RBC (4.30-5.90) m/uL Hgb (13.0-17.5) gm/dL Hct (39.0-53.0) % RDW (11.5-15.5) % Plt Count (150-450) k/uL Neutrophils # (1.3-7.7) k/uL Monocytes # (0-1.0) k/uL INR (<1.2) Chloride 109 H (98-107) mmol/L Carbon Dioxide (22-30) mmol/L Creatinine 1.40 H (0.66-1.25) mg/dL Glucose 136 H (74-99) mg/dL POC Glucose (mg/dL) 134 H (75-99) mg/dL Plasma Lactic Acid Froy (0.7-2.0) mmol/L Calcium 8.0 L (8.4-10.2) mg/dL Alkaline Phosphatase 132 H (38-126) U/L Total Creatine Kinase 44 L (55-170) U/L Total Protein 5.1 L (6.3-8.2) g/dL Albumin 2.3 L (3.5-5.0) g/dL Urine Protein (Negative) Urine Blood (Negative) Ur Leukocyte Esterase (Negative) Urine RBC (0-5) /hpf Urine WBC (0-5) /hpf Urine Bacteria (None) /hpf Hyaline Casts (0-2) /lpf Urine Mucus (None) /hpf Urine Yeast (Budding) (None) /hpf 05/19/17 05/20/17 05/20/17 Range/Units 17:05 04:16 04:16 WBC 32.2 H* (3.8-10.6) k/uL RBC 3.31 L (4.30-5.90) m/uL Hgb 10.2 L (13.0-17.5) gm/dL Hct 32.4 L (39.0-53.0) % RDW 16.0 H (11.5-15.5) % Plt Count (150-450) k/uL Neutrophils # 28.1 H (1.3-7.7) k/uL Monocytes # 1.3 H (0-1.0) k/uL INR (<1.2) Chloride 117 H (98-107) mmol/L Carbon Dioxide 20 L (22-30) mmol/L Creatinine 1.30 H (0.66-1.25) mg/dL Glucose 118 H (74-99) mg/dL POC Glucose (mg/dL) (75-99) mg/dL Plasma Lactic Acid Froy (0.7-2.0) mmol/L Calcium 7.2 L (8.4-10.2) mg/dL Alkaline Phosphatase (38-126) U/L Total Creatine Kinase (55-170) U/L Total Protein (6.3-8.2) g/dL Albumin (3.5-5.0) g/dL Urine Protein 1+ H (Negative) Urine Blood Small H (Negative) Ur Leukocyte Esterase Large H (Negative) Urine RBC 35 H (0-5) /hpf Urine WBC 179 H (0-5) /hpf Urine Bacteria Rare H (None) /hpf Hyaline Casts 3 H (0-2) /lpf Urine Mucus Rare H (None) /hpf Urine Yeast (Budding) Occasional H (None) /hpf Microbiology - Last 24 Hours (Table) 05/19/17 17:05 Urine Culture - Preliminary Urine,Catheterized Assessment and Plan (1) Protein-calorie malnutrition, moderate Status: Acute (2) Aspiration into airway Status: Acute Plan: Slowly advance tube feedings to goal.
[2017-05-20] MEDS ORDERED: TERBUTALINE FOR EXTRAVASATION 1 MG/ML VIAL SQ STA (09:12)
[2017-05-20] MEDS: PANTOPRAZOLE 40 MG/10 ML VIAL IVP SCH (09:19)
[2017-05-20] MEDS: LORATADINE 10 MG TAB PO SCH (09:21)
[2017-05-20] MEDS: CLOPIDOGREL 75 MG TAB PO SCH (09:21)
[2017-05-20] MEDS: BACITRACIN/POLYMYX 500-10,000 UNIT/GM OPHTH OINT 3.5 GM TUBE BOTH EYES SCH ×4 (09:21→22:40)
[2017-05-20 09:32] LABS: Anisocytosis Slight; Basophils # (A) 0.1 k/uL (0-0.2); Basophils % (A) 0 %; CH 30.4; CHCM 30.6; Eosinophils # (A) 0.4 k/uL (0-0.7); Eosinophils % (A) 1 %; HCT 32.7 % (39.0-53.0); HDW 3.01; HGB 10.1 gm/dL (13.0-17.5); Hypochromasia Moderate; Luc % (Auto) 1; Lymphocytes # (A) 1.6 k/uL (1.0-4.8); Lymphocytes % (A) 6 %; MCH 30.8 pg (25.0-35.0); MCHC 30.8 g/dL (31.0-37.0); MCV 99.9 fL (80.0-100.0); Macrocytosis Slight; Mean Platelet Volume 8.3; Monocytes # (A) 1.1 k/uL (0-1.0); Monocytes % (A) 4 %; Neutrophils # (A) 22.9 k/uL (1.3-7.7); Neutrophils % (A) 87 %; RBC 3.27 m/uL (4.30-5.90); RDW 16.1 % (11.5-15.5); WBC (Perox) 27.66
[2017-05-20 09:38] LABS: WBC 26.4 k/uL (3.8-10.6)
--- NOTE | 2017-05-20 10:53 | P.PN ---
Subjective 05/08/17- This is an 82-year-old male patient who came into the emergency department on 05/02/2017 from an extended care facility. Patient was noted to have a potassium of 6.4 at the extended care facility and therefore they sent him over. The patient did not have any further complaints and he has intermittent confusion which is his baseline. EKG performed in the emergency room did show sinus rhythm with occasional PVCs, patient had no ST segment elevation or depression or T-wave abnormalities. The patient was put on lactulose. Hypertension is also being worked up for possible rectal mass and will undergo colonoscopy when stable with Dr. Piña. All labs and reports have been reviewed. Patient is being seen and examined today on the sixth floor for pulmonary services related to progression of shortness of breath over the last few days. He has had a cough however denies any congestion. Nursing staff has denied any sputum production. He is alert and oriented 1 with intermittent confusion. Has been afebrile. Currently is on 3 L of supplemental oxygen via nasal cannula. It is unclear if the patient utilized oxygen in the extended care facility setting. Patient is also on a mechanical soft diet with aspiration precautions. 05/09/17- this patient is being evaluated and examined and seen on rounds today. All labs and reports were reviewed. The patient hyperkalemia has improved. The white blood cell count has come down to 12.8. Patient was noted to have increased lethargy and decreased cognition yesterday afternoon therefore a neurology consult was initiated. Patient is going for a CT of the brain as well as an EEG today. Patient's speech is noted to be slightly slurred and mumbled. Overnight he was noted to refuse care, had increase in agitation, and was refusing food and fluids. and primary care were updated. 05/10/17- this patient is being evaluated exam and seen today on the selective care unit. All labs and reports have been reviewed. Patient appears more awake today than previously. Patient did undergo a CT of the brain and EEG yesterday. Neurology and nephrology is on consult. Patient's prognosis is guarded and he has multiple comorbidities. Upon examination the patient's resting up in bed on room air states he occasionally has shortness of breath with exertion. He denies any cough or congestion at this time. Discharge planning is in process and appears the patient will go back to extended care facility when discharged. 05/11/17- patient is being seen in evaluated and examined today on the fifth floor. Patient is known to be slightly tired however is easily awoken. Currently he is resting up in bed on room air. Patient noticed to have a faint light red flat erythema rash to his right lateral chest. He denies any itching or pain. The area is small and diffuse. We will continue to monitor this. He does have Lotrisone cream for the area. On examination he denies any shortness of breath cough or congestion. Family at bedside updated on plan of care. 05/12/17- patient is being seen examined and evaluated today on the floor. The patient continues to be tired however is easily aroused upon examination. No further progression is noted of his rash to the right lateral chest. On examination patient's resting up in bed on room air. Shortness of breath as noted with exertion. Intermittent cough. He is afebrile, no overnight events. 05/13/17- patient is being seen examined and evaluated today on the floor. On examination the patient is resting in bed on room air, continues with shortness of breath on exertion. According to the nursing staff during breakfast the patient was coughing and choking and has dysphagia diet. Continue swallow evaluation with speech therapy has been ordered. 05/14/17-05/19/[address] Valverde's dictations 05/20/17- patient is being seen examined and evaluated today in the intensive care unit. Currently the patient is resting up in bed on 2 L of supplemental oxygen via nasal cannula. Patient continues to be tachycardic and oxygen dependent. Patient did undergo a procedure for PEG tube and is currently tolerating tube feeds. Chest x-ray has been reviewed from this morning and does show a correlation for CHF, underlying pneumonia not excluded. Upon examination the patient's vasopressors are on hold. We are trying to wean the patient off of pressors at this time. Objective - Vital Signs Vital signs: Vital Signs Temp 100.4 F H 05/20/17 08:00 Pulse 133 H 05/20/17 10:00 Resp 24 05/20/17 10:00 BP 119/83 05/20/17 10:00 Pulse Ox 94 L 05/20/17 10:00 Intake & Output 05/19/17 05/20/17 05/20/17 18:59 06:59 18:59 Intake Total 3050 790 607.500 Output Total 10 100 55 Balance 3040 690 552.500 Weight 60 kg 64.2 kg Intake: IV 450 300 Sodium Chloride 0.9% 1, 450 300 000 ml @ 75 mls/hr IV . [id number] [facility] Rx#:[id number] Intake, IV Titration 3000 190 247.500 Amount Norepinephrin 4 mg-0.9% 247.500 Ns Pmx 4 mg In 250 ml @ Titrate IV .Q0M [facility] Rx#: [id number] Sodium Chloride 0.9% 1, 3000 190 000 ml @ 999 mls/hr IV . Q1H1M [facility] Rx#:[id number] Tube Feeding 50 150 60 Output: Gastric Drainage 0 Urine 10 100 55 Other: Voiding Method Diaper Indwelling Catheter Incontinent # Voids 1 # Bowel Movements 0 # Emeses 2 - Exam GENERAL EXAM: Alert, intermittent confusion noted which is baseline, comfortable in no apparent distress. HEAD: Normocephalic. EYES: Normal reaction of pupils, equal size. NOSE: Clear with pink turbinates. THROAT: No erythema or exudates. NECK: No masses, no JVD. CHEST: No chest wall deformity. LUNGS: Equal air entry with no crackles, wheeze, rhonchi or dullness. Breath sounds decreased bilaterally. CVS: S1 and S2 normal with no audible mumurs, regular rhythm. ABDOMEN: No hepatosplenomegaly, normal bowel sounds, no guarding or rigidity. EXTREMITIES: +2 edema noted, pedal pulses palpable. Chronic skin changes noted , bilateral legs wrapped SKIN: Multiple skin tears, flat erythema diffuse rash to right lateral chest, cream applied CENTRAL NERVOUS SYSTEM: No focal deficits, moves all 4 extremities. - Labs CBC & Chem 7: 05/20/17 08:50 05/20/17 04:16 Labs: Abnormal Lab Results - Last 24 Hours (Table) 05/19/17 05/19/17 05/19/17 Range/Units 15:46 15:46 15:46 WBC 24.7 H (3.8-10.6) k/uL RBC 3.73 L (4.30-5.90) m/uL Hgb 11.7 L (13.0-17.5) gm/dL Hct 37.1 L (39.0-53.0) % MCHC (31.0-37.0) g/dL RDW 16.1 H (11.5-15.5) % Plt Count 545 H (150-450) k/uL Neutrophils # 21.9 H (1.3-7.7) k/uL Monocytes # (0-1.0) k/uL INR 1.2 H (<1.2) Chloride (98-107) mmol/L Carbon Dioxide (22-30) mmol/L Creatinine (0.66-1.25) mg/dL Glucose (74-99) mg/dL POC Glucose (mg/dL) (75-99) mg/dL Plasma Lactic Acid Froy 2.3 H* (0.7-2.0) mmol/L Calcium (8.4-10.2) mg/dL Alkaline Phosphatase (38-126) U/L Total Creatine Kinase (55-170) U/L Total Protein (6.3-8.2) g/dL Albumin (3.5-5.0) g/dL Urine Protein (Negative) Urine Blood (Negative) Ur Leukocyte Esterase (Negative) Urine RBC (0-5) /hpf Urine WBC (0-5) /hpf Urine Bacteria (None) /hpf Hyaline Casts (0-2) /lpf Urine Mucus (None) /hpf Urine Yeast (Budding) (None) /hpf 05/19/17 05/19/17 05/19/17 Range/Units 15:46 15:46 16:45 WBC (3.8-10.6) k/uL RBC (4.30-5.90) m/uL Hgb (13.0-17.5) gm/dL Hct (39.0-53.0) % MCHC (31.0-37.0) g/dL RDW (11.5-15.5) % Plt Count (150-450) k/uL Neutrophils # (1.3-7.7) k/uL Monocytes # (0-1.0) k/uL INR (<1.2) Chloride 109 H (98-107) mmol/L Carbon Dioxide (22-30) mmol/L Creatinine 1.40 H (0.66-1.25) mg/dL Glucose 136 H (74-99) mg/dL POC Glucose (mg/dL) 134 H (75-99) mg/dL Plasma Lactic Acid Froy (0.7-2.0) mmol/L Calcium 8.0 L (8.4-10.2) mg/dL Alkaline Phosphatase 132 H (38-126) U/L Total Creatine Kinase 44 L (55-170) U/L Total Protein 5.1 L (6.3-8.2) g/dL Albumin 2.3 L (3.5-5.0) g/dL Urine Protein (Negative) Urine Blood (Negative) Ur Leukocyte Esterase (Negative) Urine RBC (0-5) /hpf Urine WBC (0-5) /hpf Urine Bacteria (None) /hpf Hyaline Casts (0-2) /lpf Urine Mucus (None) /hpf Urine Yeast (Budding) (None) /hpf 05/19/17 05/20/17 05/20/17 Range/Units 17:05 04:16 04:16 WBC 32.2 H* (3.8-10.6) k/uL RBC 3.31 L (4.30-5.90) m/uL Hgb 10.2 L (13.0-17.5) gm/dL Hct 32.4 L (39.0-53.0) % MCHC (31.0-37.0) g/dL RDW 16.0 H (11.5-15.5) % Plt Count (150-450) k/uL Neutrophils # 28.1 H (1.3-7.7) k/uL Monocytes # 1.3 H (0-1.0) k/uL INR (<1.2) Chloride 117 H (98-107) mmol/L Carbon Dioxide 20 L (22-30) mmol/L Creatinine 1.30 H (0.66-1.25) mg/dL Glucose 118 H (74-99) mg/dL POC Glucose (mg/dL) (75-99) mg/dL Plasma Lactic Acid Froy (0.7-2.0) mmol/L Calcium 7.2 L (8.4-10.2) mg/dL Alkaline Phosphatase (38-126) U/L Total Creatine Kinase (55-170) U/L Total Protein (6.3-8.2) g/dL Albumin (3.5-5.0) g/dL Urine Protein 1+ H (Negative) Urine Blood Small H (Negative) Ur Leukocyte Esterase Large H (Negative) Urine RBC 35 H (0-5) /hpf Urine WBC 179 H (0-5) /hpf Urine Bacteria Rare H (None) /hpf Hyaline Casts 3 H (0-2) /lpf Urine Mucus Rare H (None) /hpf Urine Yeast (Budding) Occasional H (None) /hpf 05/20/17 Range/Units 08:50 WBC 26.4 H* (3.8-10.6) k/uL RBC 3.27 L (4.30-5.90) m/uL Hgb 10.1 L (13.0-17.5) gm/dL Hct 32.7 L (39.0-53.0) % MCHC 30.8 L (31.0-37.0) g/dL RDW 16.1 H (11.5-15.5) % Plt Count (150-450) k/uL Neutrophils # 22.9 H (1.3-7.7) k/uL Monocytes # 1.1 H (0-1.0) k/uL INR (<1.2) Chloride (98-107) mmol/L Carbon Dioxide (22-30) mmol/L Creatinine (0.66-1.25) mg/dL Glucose (74-99) mg/dL POC Glucose (mg/dL) (75-99) mg/dL Plasma Lactic Acid Froy (0.7-2.0) mmol/L Calcium (8.4-10.2) mg/dL Alkaline Phosphatase (38-126) U/L Total Creatine Kinase (55-170) U/L Total Protein (6.3-8.2) g/dL Albumin (3.5-5.0) g/dL Urine Protein (Negative) Urine Blood (Negative) Ur Leukocyte Esterase (Negative) Urine RBC (0-5) /hpf Urine WBC (0-5) /hpf Urine Bacteria (None) /hpf Hyaline Casts (0-2) /lpf Urine Mucus (None) /hpf Urine Yeast (Budding) (None) /hpf Microbiology - Last 24 Hours (Table) 05/19/17 17:05 Urine Culture - Preliminary Urine,Catheterized Assessment and Plan Plan: Assessment Recurrent intermittent aspiration with episodes of silent aspiration patient is status post PEG tube placement Urinary tract infection, culture positive for gram negatives bacilli and E. coli , which appears to be ESBL, IVS adjust antibiotics Sepsis with fever, gram-negative Acute hypoxic respiratory failure Hyperkalemia, improved Acute renal failure Urinary tract infection, culture positive for gram negatives bacilli and E. coli Hypernatremia likely related to decreased oral intake Probable rectal mass, currently being worked up Diarrhea History of CVA Plan Continue to try to wean down vasopressors. Medications have been reviewed and will be continued as ordered. Patient's prognosis is guarded. Patient known to be resistive to care and medical treatment. Continue to monitor electrolytes. Patient will undergo colonoscopy once cleared, in the outpatient setting. Continue with pulmonary hygiene, coughing and deep breathing exercises , and supportive care. Supplemental oxygen to maintain oxygen saturations of 92 % or better. Continue nebulizer treatments in the form of DuoNeb and budesonide. . GI and DVT prophylaxis. Appreciate consults recommendations. Patient is currently being worked up for discharge planning to extended care facility. We will continue to monitor labs/results and adjust treatment as necessary. Further recommendations pending. I performed an examination of the patient and discussed their management with the nurse practitioner. I have reviewed the nurse practitioner's note and agree with the documented findings and plan of care.
[2017-05-20 12:05] LABS: Glucose,Whole Blood 117 mg/dL (75-99)
[2017-05-20] MEDS: AMMONIUM LACTATE 12% LOTION 225 GM BTL TOPICAL SCH ×2 (12:19→20:35)
[2017-05-20] MEDS: DEXTROSE 5% IN WATER 1,000 ML IV SCH (13:54)
[2017-05-20 18:38] LABS: Glucose,Whole Blood 126 mg/dL (75-99)
--- NOTE | 2017-05-20 19:52 | P.PN ---
Subjective Principal diagnosis: sepsis 82-year-old male resident of [facility] was found evidence of multiple abnormal labs included acute renal failure and hyperkalemia. The patient was transferred from the [facility] for further intervention. Infectious diseases consultation was requested when the patient developed a high-grade fever reportedly over 104. the consult was initiated as the patient became febrile, hypotensive and tachycardic. The patient is a poor historian. The patient today is a bit more comfortable than reported last evening. He relates that he has minimal hunger. His mouth is dry. As related lactic acid was drawn which was elevated and had evidence of leukocytosis, the patient was given fluids and antibiotic therapy with Zosyn given the concerns to urinary system as well as potential abdominal source since he was having some diarrhea. As the patient is slightly more comfortable. Has been seen by surgery and is being monitored for a potential colonoscopy in the future. Regarding ongoing treatment for the colonic abscess. No complaints except for fatigue.. As noted there is been the difficulty with his nutrition. Concerns of an aspiration event. PEG tube is been placed and is being utilized at this time under the supervision of surgery. The patient has remained with some shortness of breath and tachypnea to a lot oxygen supplementation. Tachycardias improved. Hypotension is improving and his vasopressors are being weaned. Having some overall improvement but remains ill. There was some change of his mental status over the weekend. Objective - Vital Signs Vital signs: Vital Signs Temp 98.9 F 05/20/17 16:00 Pulse 103 H 05/20/17 19:30 Resp 21 05/20/17 19:30 BP 130/70 05/20/17 19:30 Pulse Ox 93 L 05/20/17 19:30 Intake & Output 05/20/17 05/20/17 05/21/17 06:59 18:59 06:59 Intake Total 790 1622.500 Output Total 100 190 Balance 690 1432.500 Weight 64.2 kg 64.2 kg Intake: IV 450 975 Sodium Chloride 0.9% 1, 450 975 000 ml @ 75 mls/hr IV . [id number] [facility] Rx#:[id number] Intake, IV Titration 190 247.500 Amount Norepinephrin 4 mg-0.9% 247.500 Ns Pmx 4 mg In 250 ml @ Titrate IV .Q0M GL[facility]NA Rx#: [id number] Sodium Chloride 0.9% 1, 190 000 ml @ 999 mls/hr IV . Q1H1M ONE Rx#:[id number] Tube Feeding 150 340 Other 60 Output: Gastric Drainage 0 Urine 100 190 Other: Voiding Method Indwelling Catheter Indwelling Catheter Temperature max in the last 72 hours 101.2. Afebrile today. - Exam 82-year-old male poor historian HEENT: Anicteric conjunctiva are pink and mildly crusty nasal mucosa grossly intact without significant lesions, there is no thrush but the oral cavity is very dry Neck: The neck is supple with no nuchal rigidity, without significant lymphadenopathy or thyromegaly. Lungs: There is symmetrical air entry. Scattered wheezes and basilar crackles are noted. Heart: Irregular with soft S4 no distinct murmur click or rub Abdomen: Positive bowel sounds soft and nontender without palpable masses or organomegaly. There was no guarding or rebound. PEG tube site is intact Extremities: The extremities have some minimal trace edema but no significant lesions are seen in the upper extremities. The lower extremities have evidence of the extensive skin lesion the bilateral lower extremities. There is a healing left hip incision which is without erythema crepitance or fluctuance. Neuro: Arousable, speech content is poor and inconsistent can poorly understandable he however does move arms and legs spontaneously Skin has a mild erythematous rash on the chest which is improving. - Labs CBC & Chem 7: 05/20/17 08:50 05/20/17 04:16 Labs: Abnormal Lab Results - Last 24 Hours (Table) 05/20/17 05/20/17 05/20/17 Range/Units 04:16 04:16 08:50 WBC 32.2 H* 26.4 H* (3.8-10.6) k/uL RBC 3.31 L 3.27 L (4.30-5.90) m/uL Hgb 10.2 L 10.1 L (13.0-17.5) gm/dL Hct 32.4 L 32.7 L (39.0-53.0) % MCHC 30.8 L (31.0-37.0) g/dL RDW 16.0 H 16.1 H (11.5-15.5) % Neutrophils # 28.1 H 22.9 H (1.3-7.7) k/uL Monocytes # 1.3 H 1.1 H (0-1.0) k/uL Chloride 117 H (98-107) mmol/L Carbon Dioxide 20 L (22-30) mmol/L Creatinine 1.30 H (0.66-1.25) mg/dL Glucose 118 H (74-99) mg/dL POC Glucose (mg/dL) (75-99) mg/dL Calcium 7.2 L (8.4-10.2) mg/dL 05/20/17 05/20/17 Range/Units 12:04 18:37 WBC (3.8-10.6) k/uL RBC (4.30-5.90) m/uL Hgb (13.0-17.5) gm/dL Hct (39.0-53.0) % MCHC (31.0-37.0) g/dL RDW (11.5-15.5) % Neutrophils # (1.3-7.7) k/uL Monocytes # (0-1.0) k/uL Chloride (98-107) mmol/L Carbon Dioxide (22-30) mmol/L Creatinine (0.66-1.25) mg/dL Glucose (74-99) mg/dL POC Glucose (mg/dL) 117 H 126 H (75-99) mg/dL Calcium (8.4-10.2) mg/dL Microbiology - Last 24 Hours (Table) 05/19/17 17:05 Urine Culture - Preliminary Urine,Catheterized Laboratory Results WBC 26.4 k/uL (3.8-10.6) H* 05/20/17 08:50 RBC 3.27 m/uL (4.30-5.90) L 05/20/17 08:50 Hgb 10.1 gm/dL (13.0-17.5) L 05/20/17 08:50 Hct 32.7 % (39.0-53.0) L 05/20/17 08:50 MCV 99.9 fL (80.0-100.0) 05/20/17 08:50 MCH 30.8 pg (25.0-35.0) 05/20/17 08:50 MCHC 30.8 g/dL (31.0-37.0) L 05/20/17 08:50 RDW 16.1 % (11.5-15.5) H 05/20/17 08:50 Plt Count 444 k/uL (150-450) 05/20/17 08:50 Neutrophils % 87 % 05/20/17 08:50 Lymphocytes % 6 % 05/20/17 08:50 Monocytes % 4 % 05/20/17 08:50 Eosinophils % 1 % 05/20/17 08:50 Basophils % 0 % 05/20/17 08:50 Neutrophils # 22.9 k/uL (1.3-7.7) H 05/20/17 08:50 Lymphocytes # 1.6 k/uL (1.0-4.8) 05/20/17 08:50 Monocytes # 1.1 k/uL (0-1.0) H 05/20/17 08:50 Eosinophils # 0.4 k/uL (0-0.7) 05/20/17 08:50 Basophils # 0.1 k/uL (0-0.2) 05/20/17 08:50 Hypochromasia Moderate 05/20/17 08:50 Anisocytosis Slight 05/20/17 08:50 Macrocytosis Slight 05/20/17 08:50 PT 11.9 sec (9.0-12.0) 05/19/17 15:46 INR 1.2 (<1.2) H 05/19/17 15:46 APTT 27.9 sec (22.0-30.0) 05/19/17 15:46 Sodium 141 mmol/L (137-145) 05/20/17 04:16 Potassium 4.3 mmol/L (3.5-5.1) 05/20/17 04:16 Chloride 117 mmol/L (98-107) H 05/20/17 04:16 Carbon Dioxide 20 mmol/L (22-30) L 05/20/17 04:16 Anion Gap 4 mmol/L 05/20/17 04:16 BUN 19 mg/dL (9-20) 05/20/17 04:16 Creatinine 1.30 mg/dL (0.66-1.25) H 05/20/17 04:16 Est GFR (MDRD) Af Amer >60 (>60 ml/min/1.73 sqM) 05/20/17 04:16 Est GFR (MDRD) Non-Af 53 (>60 ml/min/1.73 sqM) 05/20/17 04:16 Glucose 118 mg/dL (74-99) H 05/20/17 04:16 POC Glucose (mg/dL) 126 mg/dL (75-99) H 05/20/17 18:37 POC Glu Watch Repairer ID Karon Hernandez 05/20/17 18:37 Lactic Ac Sepsis Rflx Y 05/19/17 16:27 Plasma Lactic Acid Froy 1.7 mmol/L (0.7-2.0) 05/19/17 19:46 Calcium 7.2 mg/dL (8.4-10.2) L 05/20/17 04:16 Magnesium 2.1 mg/dL (1.6-2.3) 05/17/17 07:40 Total Bilirubin 0.4 mg/dL (0.2-1.3) 05/19/17 15:46 AST 50 U/L (17-59) 05/19/17 15:46 ALT 26 U/L (21-72) 05/19/17 15:46 Alkaline Phosphatase 132 U/L (38-126) H 05/19/17 15:46 Total Creatine Kinase 83 U/L (55-170) 05/20/17 04:16 CK-MB (CK-2) 1.9 ng/mL (0.0-2.4) 05/20/17 04:16 CK-MB (CK-2) Rel Index 2.3 05/20/17 04:16 Troponin I 0.031 ng/mL (0.000-0.034) 05/20/17 04:16 Total Protein 5.1 g/dL (6.3-8.2) L 05/19/17 15:46 Albumin 2.3 g/dL (3.5-5.0) L 05/19/17 15:46 Cortisol 24 ug/dL 05/19/17 15:46 Urine Color Yellow 05/19/17 17:05 Urine Appearance Cloudy (Clear) 05/19/17 17:05 Urine pH 5.5 (5.0-8.0) 05/19/17 17:05 Ur Specific [place] 1.015 (1.001-1.035) 05/19/17 17:05 Urine Protein 1+ (Negative) H 05/19/17 17:05 Urine Glucose (UA) Negative (Negative) 05/19/17 17:05 Urine Ketones Negative (Negative) 05/19/17 17:05 Urine Blood Small (Negative) H 05/19/17 17:05 Urine Nitrite Negative (Negative) 05/19/17 17:05 Urine Bilirubin Negative (Negative) 05/19/17 17:05 Urine Urobilinogen 3.0 mg/dL (<2.0) 05/19/17 17:05 Ur Leukocyte Esterase Large (Negative) H 05/19/17 17:05 Urine RBC 35 /hpf (0-5) H 05/19/17 17:05 Urine WBC 179 /hpf (0-5) H 05/19/17 17:05 Urine WBC Clumps Few /hpf (None) H 05/02/17 19:18 Urine Bacteria Rare /hpf (None) H 05/19/17 17:05 Hyaline Casts 3 /lpf (0-2) H 05/19/17 17:05 Urine Mucus Rare /hpf (None) H 05/19/17 17:05 Urine Yeast (Budding) Occasional /hpf (None) H 05/19/17 17:05 C. difficile (EIA) Intrp Negative (Negative) 05/03/17 15:54 Microbiology 05/19/17 17:05 Urine,Catheterized Urine Culture - Preliminary 05/04/17 23:29 Blood Blood Culture - Final No Growth after 144 hours 05/03/17 17:57 Blood Blood Culture - Final No Growth after 144 hours 05/03/17 03:00 Urine,Catheterized Urine Culture - Final Escherichia coli Assessment and Plan (1) Gram-negative sepsis with organ dysfunction Narrative/Plan: 82-year-old male transferred from extended care facility for alteration of his status. We'll request performed there was evidence of leukocytosis, acute renal failure, hyperkalemia. With this he was transferred to Hospital and is now received intervention and has been seen by nephrology. Because of his illness computed tomography scan of the abdomen and pelvis was performed showing evidence of the significant cecal dilatation and concerns to infection and abscess at that site. The patient has been seen by surgery and will plan colonoscopy when he is medically cleared. At the time of the consult fluid bolus was given since his computed tomography scan did not show evidence of heart failure. Antipyretics were given. The patient defervesced and his significant tachycardia and hypotension resolved. The patient has remained on selective care. His CODE STATUS is full, and apparently this has been addressed with the family and they do not yet understand the current ramifications of his illness. Ongoing discussion shall be held for more appropriate CODE STATUS. He has had a significant leukocytosis which is her sinning. There is evidence of urine culture with E. coli. His fever has resolved. Antibiotic therapy with Zosyn was initiated with concerns to the abdominal sepsis. We will also give coverage for his urinary tract infection based on prior cultures. He does have some crustiness to his eyes and Polysporin was given with improvement. His legs are wrapped continue the ulcer on the dorsum of the right foot. Local wound care as changed to medical Honey to try to debrided this better. Continue to wrap the legs. The dressing changes can be performed every other day. Assessment followed by surgery. Will need outpatient endoscopic evaluation if possible. There is been a significant leukocytosis and started to show improvement. The patient had had adequate treatment for his urinary infection but was still receiving some antibiotic therapy for the abdominal infection. The condition to oral therapy seems to not be effective at this time. His leukocytosis has increased and is now developed a bit of a rash possibly from the antibiotic therapy. Antibiotic therapy was transition to ertapenem, there is been improvement in that his rash is nearly resolved There is concerns to an aspiration event in the ertapenem should give us coverage also. Status: Acute (2) Acute renal failure Status: Acute (3) Hyperkalemia Status: Acute (4) UTI (urinary tract infection) Status: Acute
[2017-05-20] MEDS: SENNOSIDES-DOCUSATE SODIUM 1 EACH TAB PO SCH (20:34)
[2017-05-20 20:40] LABS: Glucose,Whole Blood 120 mg/dL (75-99)
[2017-05-21 05:05] LABS: ALT 24 U/L (21-72); AST 23 U/L (17-59); Alkaline Phosphatase 98 U/L (38-126); Anion Gap 6 mmol/L; Blood Urea Nitrogen 22 mg/dL (9-20); Calcium 7.3 mg/dL (8.4-10.2); Carbon Dioxide 22 mmol/L (22-30); Chloride 117 mmol/L (98-107); Glucose 117 mg/dL (74-99); Magnesium 1.7 mg/dL (1.6-2.3); Non-African American GFR(MDRD) >60 (>60 ml/min/1.73 sqM); Phosphorous 1.5 mg/dL (2.5-4.5); Potassium 3.6 mmol/L (3.5-5.1); Sodium 145 mmol/L (137-145); Total Bilirubin 0.2 mg/dL (0.2-1.3); Total Protein 4.1 g/dL (6.3-8.2)
[2017-05-21 05:39] LABS: Anisocytosis Slight; Basophils % (A) 0 %; CHCM 30.2; Eosinophils # (A) 0.6 k/uL (0-0.7); Eosinophils % (A) 5 %; HCT 28.1 % (39.0-53.0); HDW 3.08; Hypochromasia Marked; Luc # (Auto) 0.22; Luc % (Auto) 2; Lymphocytes # (A) 1.3 k/uL (1.0-4.8); Lymphocytes % (A) 10 %; MCH 30.8 pg (25.0-35.0); MCHC 30.7 g/dL (31.0-37.0); MCV 100.2 fL (80.0-100.0); Macrocytosis Slight; Mean Platelet Volume 8.4; Monocytes # (A) 0.7 k/uL (0-1.0); Monocytes % (A) 5 %; Neutrophils # (A) 10.7 k/uL (1.3-7.7); Neutrophils % (A) 79 %; RDW 16.2 % (11.5-15.5); WBC 13.6 k/uL (3.8-10.6); WBC (Perox) 14.25
[2017-05-21 05:46] LABS: HGB 8.6 gm/dL (13.0-17.5)
[2017-05-21] MEDS: ENOXAPARIN 40 MG/0.4 ML SYRINGE SQ SCH (06:21)
[2017-05-21] MEDS: SODIUM CHLORIDE 0.9% 1,000 ML IV SCH ×3 (06:21→23:26)
[2017-05-21] MEDS ORDERED: POTASSIUM CHLORIDE ORAL LIQUID 40 MEQ/30 ML CUP NG-TUBE SCH (07:00)
[2017-05-21] MEDS: MAGNESIUM SULFATE-D5W PMX 1 GM in DEXTROSE/WATER 1 100ML.BAG IVPB SCH ×2 (07:09→07:52)
[2017-05-21] MEDS: IPRATROPIUM-ALBUTEROL 3 ML NEB INHALATION SCH ×3 (07:46→20:32)
[2017-05-21] MEDS: BUDESONIDE 0.5 MG/2 ML NEBU INHALATION SCH ×2 (07:49→20:32)
[2017-05-21] MEDS: DEXTROSE 5% IN WATER 1,000 ML IV SCH (07:51)
[2017-05-21] MEDS: CLOPIDOGREL 75 MG TAB PO SCH (08:00)
[2017-05-21] MEDS: LORATADINE 10 MG TAB PO SCH (08:00)
[2017-05-21] MEDS: METOPROLOL TARTRATE 50 MG TAB PO SCH ×3 (08:00→22:24)
[2017-05-21] MEDS: PANTOPRAZOLE 40 MG/10 ML VIAL IVP SCH (08:00)
--- NOTE | 2017-05-21 08:00 | P.PN ---
Subjective Principal diagnosis: Fever spike. This a continue pressure 82-year-old white male essentially admitted for sepsis with gram-negative UTI. There is also element of colitis. The patient was placed on Zosyn for about 2 weeks. We transitioned him to oral antibiotics. He hasn't developed a rash and actually did not do well with the Cipro Flagyl combination after being on Zosyn. The patient has had significant tachycardia which we think giving beta blockers 4. The patient seems to be much more improved this morning after being switched to appropriate IV antibiotic treatment. The patient has also been tolerating tube feeds appropriately. Appreciate security flex officer with infectious disease input. Objective - Vital Signs Vital signs: Vital Signs Temp 98.2 F 05/21/17 04:00 Pulse 134 H 05/21/17 07:47 Resp 26 H 05/21/17 07:00 BP 111/52 05/21/17 07:00 Pulse Ox 96 05/21/17 07:00 Intake & Output 05/20/17 05/21/17 05/21/17 18:59 06:59 18:59 Intake Total 8494.929 8205 145 Output Total 190 212 5 Balance 3605.049 3062 140 Weight 64.2 kg 64.4 kg Intake: IV 975 825 100 Potassium Phosphate 10 100 mmol In Sodium Chloride 0 .9% 250 ml @ 125 mls/hr IV Q2H [facility] Rx#:[id number] Sodium Chloride 0.9% 1, 975 825 0 000 ml @ 75 mls/hr IV . [id number] [facility] Rx#:[id number] Intake, IV Titration 247.500 Amount Norepinephrin 4 mg-0.9% 247.500 Ns Pmx 4 mg In 250 ml @ Titrate IV .Q0M [facility] Rx#: [id number] Tube Feeding 340 580 45 Other 60 60 Output: Urine 190 212 5 Other: Voiding Method Indwelling Catheter Indwelling Catheter # Bowel Movements 1 - Constitutional General appearance: Present: average body habitus - EENT Eyes: Absent: abnormal pupil - Respiratory Respiratory: bilateral: diminished - Cardiovascular Heart rate: 140 Rhythm: regular Heart sounds: normal: S1, S2 - Gastrointestinal General gastrointestinal: Present: soft. Absent: tenderness - Musculoskeletal Musculoskeletal: Present: generalized weakness - Labs CBC & Chem 7: 05/21/17 04:09 05/21/17 04:09 Labs: Abnormal Lab Results - Last 24 Hours (Table) 05/20/17 05/20/17 05/20/17 Range/Units 08:50 12:04 18:37 WBC 26.4 H* (3.8-10.6) k/uL RBC 3.27 L (4.30-5.90) m/uL Hgb 10.1 L (13.0-17.5) gm/dL Hct 32.7 L (39.0-53.0) % MCV (80.0-100.0) fL MCHC 30.8 L (31.0-37.0) g/dL RDW 16.1 H (11.5-15.5) % Neutrophils # 22.9 H (1.3-7.7) k/uL Monocytes # 1.1 H (0-1.0) k/uL Chloride (98-107) mmol/L BUN (9-20) mg/dL Glucose (74-99) mg/dL POC Glucose (mg/dL) 117 H 126 H (75-99) mg/dL Calcium (8.4-10.2) mg/dL Phosphorus (2.5-4.5) mg/dL Total Protein (6.3-8.2) g/dL Albumin (3.5-5.0) g/dL 05/20/17 05/21/17 05/21/17 Range/Units 20:38 04:09 04:09 WBC 13.6 H (3.8-10.6) k/uL RBC 2.80 L (4.30-5.90) m/uL Hgb 8.6 L D (13.0-17.5) gm/dL Hct 28.1 L (39.0-53.0) % MCV 100.2 H (80.0-100.0) fL MCHC 30.7 L (31.0-37.0) g/dL RDW 16.2 H (11.5-15.5) % Neutrophils # 10.7 H (1.3-7.7) k/uL Monocytes # (0-1.0) k/uL Chloride 117 H (98-107) mmol/L BUN 22 H (9-20) mg/dL Glucose 117 H (74-99) mg/dL POC Glucose (mg/dL) 120 H (75-99) mg/dL Calcium 7.3 L (8.4-10.2) mg/dL Phosphorus 1.5 L (2.5-4.5) mg/dL Total Protein 4.1 L (6.3-8.2) g/dL Albumin 1.7 L (3.5-5.0) g/dL Microbiology - Last 24 Hours (Table) 05/19/17 19:46 Blood Culture - Preliminary Blood No Growth after 24 hours 05/19/17 18:30 Blood Culture - Preliminary Blood No Growth after 24 hours 05/19/17 17:05 Urine Culture - Final Urine,Catheterized Assessment and Plan (1) Acute renal failure Status: Acute (2) Gram-negative sepsis with organ dysfunction Status: Acute (3) CVA (cerebral vascular accident) Status: Acute
[2017-05-21] MEDS: BACITRACIN/POLYMYX 500-10,000 UNIT/GM OPHTH OINT 3.5 GM TUBE BOTH EYES SCH ×4 (08:01→22:15)
[2017-05-21] MEDS: AMMONIUM LACTATE 12% LOTION 225 GM BTL TOPICAL SCH ×2 (09:14→22:17)
[2017-05-21] MEDS: POTASSIUM PHOSPHATE 10 MMOL in SODIUM CHLORIDE 0.9% 250 ML IV SCH ×2 (09:14→10:56)
[2017-05-21 09:40] LABS: Glucose,Whole Blood 161 mg/dL (75-99)
[2017-05-21 09:40] LABS: Glucose,Whole Blood 102 mg/dL (75-99)
--- NOTE | 2017-05-21 10:08 | P.PN ---
Progress Note - Text The patient does respond to verbal stimuli. He is confused. He denies pain. Abdomen: Soft, positive bowel sounds, PEG tube site healing without cellulitis Assessment: Status post tube placement. Plan: Continue medical therapy. Gradually increase tube feedings as tolerated. Consider outpatient colonoscopy if his condition improves.
--- NOTE | 2017-05-21 12:15 | XR ---
EXAMINATION TYPE: XR chest 1V DATE OF EXAM: 05/21/2017 HISTORY: assess lungs. REFERENCE: Previous study dated 05/20/2017. FINDINGS: There is been partial clearing of the patient's bilateral infiltrates. Heart size is within normal limits. No definite pleural fluid is seen. IMPRESSION: IMPROVED AERATION, BOTH LUNG BASES.
[2017-05-21 14:22] LABS: Anisocytosis Slight; Basophils # (A) 0.1 k/uL (0-0.2); Basophils % (A) 0 %; CH 29.6; CHCM 29.4; Eosinophils # (A) 0.8 k/uL (0-0.7); Eosinophils % (A) 5 %; HCT 23.4 % (39.0-53.0); HDW 3.22; HGB 7.3 gm/dL (13.0-17.5); Hypochromasia Marked; Luc # (Auto) 0.33; Luc % (Auto) 2; Lymphocytes # (A) 1.6 k/uL (1.0-4.8); Lymphocytes % (A) 10 %; MCH 31.5 pg (25.0-35.0); MCV 101.5 fL (80.0-100.0); Macrocytosis Slight; Mean Platelet Volume 8.4; Monocytes # (A) 0.9 k/uL (0-1.0); Monocytes % (A) 6 %; Neutrophils # (A) 11.6 k/uL (1.3-7.7); Neutrophils % (A) 76 %; RBC 2.31 m/uL (4.30-5.90); RDW 16.4 % (11.5-15.5); WBC 15.3 k/uL (3.8-10.6); WBC (Perox) 15.64
--- NOTE | 2017-05-21 16:19 | P.PN ---
Subjective 05/08/17- This is an 82-year-old male patient who came into the emergency department on 05/02/2017 from an extended care facility. Patient was noted to have a potassium of 6.4 at the extended care facility and therefore they sent him over. The patient did not have any further complaints and he has intermittent confusion which is his baseline. EKG performed in the emergency room did show sinus rhythm with occasional PVCs, patient had no ST segment elevation or depression or T-wave abnormalities. The patient was put on lactulose. Hypertension is also being worked up for possible rectal mass and will undergo colonoscopy when stable with Dr. Piña. All labs and reports have been reviewed. Patient is being seen and examined today on the sixth floor for pulmonary services related to progression of shortness of breath over the last few days. He has had a cough however denies any congestion. Nursing staff has denied any sputum production. He is alert and oriented 1 with intermittent confusion. Has been afebrile. Currently is on 3 L of supplemental oxygen via nasal cannula. It is unclear if the patient utilized oxygen in the extended care facility setting. Patient is also on a mechanical soft diet with aspiration precautions. 05/09/17- this patient is being evaluated and examined and seen on rounds today. All labs and reports were reviewed. The patient hyperkalemia has improved. The white blood cell count has come down to 12.8. Patient was noted to have increased lethargy and decreased cognition yesterday afternoon therefore a neurology consult was initiated. Patient is going for a CT of the brain as well as an EEG today. Patient's speech is noted to be slightly slurred and mumbled. Overnight he was noted to refuse care, had increase in agitation, and was refusing food and fluids. and primary care were updated. 05/10/17- this patient is being evaluated exam and seen today on the selective care unit. All labs and reports have been reviewed. Patient appears more awake today than previously. Patient did undergo a CT of the brain and EEG yesterday. Neurology and nephrology is on consult. Patient's prognosis is guarded and he has multiple comorbidities. Upon examination the patient's resting up in bed on room air states he occasionally has shortness of breath with exertion. He denies any cough or congestion at this time. Discharge planning is in process and appears the patient will go back to extended care facility when discharged. 05/11/17- patient is being seen in evaluated and examined today on the fifth floor. Patient is known to be slightly tired however is easily awoken. Currently he is resting up in bed on room air. Patient noticed to have a faint light red flat erythema rash to his right lateral chest. He denies any itching or pain. The area is small and diffuse. We will continue to monitor this. He does have Lotrisone cream for the area. On examination he denies any shortness of breath cough or congestion. Family at bedside updated on plan of care. 05/12/17- patient is being seen examined and evaluated today on the floor. The patient continues to be tired however is easily aroused upon examination. No further progression is noted of his rash to the right lateral chest. On examination patient's resting up in bed on room air. Shortness of breath as noted with exertion. Intermittent cough. He is afebrile, no overnight events. 05/13/17- patient is being seen examined and evaluated today on the floor. On examination the patient is resting in bed on room air, continues with shortness of breath on exertion. According to the nursing staff during breakfast the patient was coughing and choking and has dysphagia diet. Continue swallow evaluation with speech therapy has been ordered. 05/14/17-05/19/[address] Valverde's dictations 05/20/17- patient is being seen examined and evaluated today in the intensive care unit. Currently the patient is resting up in bed on 2 L of supplemental oxygen via nasal cannula. Patient continues to be tachycardic and oxygen dependent. Patient did undergo a procedure for PEG tube and is currently tolerating tube feeds. Chest x-ray has been reviewed from this morning and does show a correlation for CHF, underlying pneumonia not excluded. Upon examination the patient's vasopressors are on hold. We are trying to wean the patient off of pressors at this time. 05/21/17- patient is being seen examined and evaluated today in the intensive care unit. Patient has been noted to have significant tachycardia with episodes of hypotension, he was noted to have increased bowel movements that were loose and dark. Occult blood was sent to lab and came back positive. The patient had FMF in place. Surgical has been updated. Hemoglobin noted to drop from 8.6 this morning now down to 7.3. Orders given for 2 units of packed red blood cells as well as consult interventional radiology for PICC line insertion. chest x-ray from this afternoon revealed improved variation in both lung bases. Objective - Vital Signs Vital signs: Vital Signs Temp 100.9 F H 05/21/17 16:00 Pulse 114 H 05/21/17 16:00 Resp 29 H 05/21/17 16:00 BP 116/84 05/21/17 16:00 Pulse Ox 93 L 05/21/17 16:00 Intake & Output 05/20/17 05/21/17 05/21/17 18:59 06:59 18:59 Intake Total 3903.280 3034 1765 Output Total 190 212 375 Balance 6221.504 2247 1390 Weight 64.2 kg 64.4 kg 64.4 kg Intake: IV 614 345 3403 Potassium Phosphate 10 600 mmol In Sodium Chloride 0 .9% 250 ml @ 125 mls/hr IV Q2H [facility] Rx#:[id number] Sodium Chloride 0.9% 1, 975 825 600 000 ml @ 75 mls/hr IV . [id number] [facility] Rx#:[id number] Intake, IV Titration 247.500 100 Amount Magnesium Sulfate-D5w Pmx 100 1 gm In Dextrose/Water 1 100ml.bag @ 100 mls/hr IVPB Q1H [facility] Rx#: [id number] Norepinephrin 4 mg-0.9% 247.500 Ns Pmx 4 mg In 250 ml @ Titrate IV .Q0M [facility] Rx#: [id number] Tube Feeding 340 580 405 Other 60 60 60 Output: Urine 190 212 175 Stool 200 Other: Voiding Method Indwelling Catheter Indwelling Catheter Indwelling Catheter # Bowel Movements 1 - Exam GENERAL EXAM: Alert, intermittent confusion noted which is baseline, comfortable in no apparent distress. HEAD: Normocephalic. EYES: Normal reaction of pupils, equal size. NOSE: Clear with pink turbinates. THROAT: No erythema or exudates. NECK: No masses, no JVD. CHEST: No chest wall deformity. LUNGS: Equal air entry with no crackles, wheeze, rhonchi or dullness. Breath sounds decreased bilaterally. CVS: S1 and S2 normal with no audible mumurs, regular rhythm. ABDOMEN: No hepatosplenomegaly, normal bowel sounds, no guarding or rigidity. PEG tube in place clean dry and intact, FMS in place EXTREMITIES: +2 edema noted, pedal pulses palpable. Chronic skin changes noted , bilateral legs wrapped SKIN: Multiple skin tears, flat erythema diffuse rash to right lateral chest, cream applied CENTRAL NERVOUS SYSTEM: No focal deficits, moves all 4 extremities. - Labs CBC & Chem 7: 05/21/17 14:10 05/21/17 14:10 Labs: Abnormal Lab Results - Last 24 Hours (Table) 05/20/17 05/20/17 05/21/17 Range/Units 18:37 20:38 04:09 WBC (3.8-10.6) k/uL RBC (4.30-5.90) m/uL Hgb (13.0-17.5) gm/dL Hct (39.0-53.0) % MCV (80.0-100.0) fL MCHC (31.0-37.0) g/dL RDW (11.5-15.5) % Neutrophils # (1.3-7.7) k/uL Eosinophils # (0-0.7) k/uL Chloride 117 H (98-107) mmol/L BUN 22 H (9-20) mg/dL Glucose 117 H (74-99) mg/dL POC Glucose (mg/dL) 126 H 120 H (75-99) mg/dL Calcium 7.3 L (8.4-10.2) mg/dL Phosphorus 1.5 L (2.5-4.5) mg/dL Total Protein 4.1 L (6.3-8.2) g/dL Albumin 1.7 L (3.5-5.0) g/dL 05/21/17 05/21/17 05/21/17 Range/Units 04:09 09:36 09:38 WBC 13.6 H (3.8-10.6) k/uL RBC 2.80 L (4.30-5.90) m/uL Hgb 8.6 L D (13.0-17.5) gm/dL Hct 28.1 L (39.0-53.0) % MCV 100.2 H (80.0-100.0) fL MCHC 30.7 L (31.0-37.0) g/dL RDW 16.2 H (11.5-15.5) % Neutrophils # 10.7 H (1.3-7.7) k/uL Eosinophils # (0-0.7) k/uL Chloride (98-107) mmol/L BUN (9-20) mg/dL Glucose (74-99) mg/dL POC Glucose (mg/dL) 102 H 161 H (75-99) mg/dL Calcium (8.4-10.2) mg/dL Phosphorus (2.5-4.5) mg/dL Total Protein (6.3-8.2) g/dL Albumin (3.5-5.0) g/dL 05/21/17 Range/Units 14:10 WBC 15.3 H (3.8-10.6) k/uL RBC 2.31 L (4.30-5.90) m/uL Hgb 7.3 L (13.0-17.5) gm/dL Hct 23.4 L (39.0-53.0) % MCV 101.5 H (80.0-100.0) fL MCHC (31.0-37.0) g/dL RDW 16.4 H (11.5-15.5) % Neutrophils # 11.6 H (1.3-7.7) k/uL Eosinophils # 0.8 H (0-0.7) k/uL Chloride (98-107) mmol/L BUN (9-20) mg/dL Glucose (74-99) mg/dL POC Glucose (mg/dL) (75-99) mg/dL Calcium (8.4-10.2) mg/dL Phosphorus (2.5-4.5) mg/dL Total Protein (6.3-8.2) g/dL Albumin (3.5-5.0) g/dL Microbiology - Last 24 Hours (Table) 05/19/17 19:46 Blood Culture - Preliminary Blood No Growth after 24 hours 05/19/17 18:30 Blood Culture - Preliminary Blood No Growth after 24 hours 05/19/17 17:05 Urine Culture - Final Urine,Catheterized Assessment and Plan Plan: Assessment Recurrent intermittent aspiration with episodes of silent aspiration patient is status post PEG tube placement Urinary tract infection, culture positive for gram negatives bacilli and E. coli , which appears to be ESBL, IVS adjust antibiotics Sepsis with fever, gram-negative Acute hypoxic respiratory failure Hyperkalemia, improved Acute renal failure Urinary tract infection, culture positive for gram negatives bacilli and E. coli Hypernatremia likely related to decreased oral intake Probable rectal mass, currently being worked up Diarrhea History of CVA Hypotension Plan Medications have been reviewed and will be continued as ordered. Patient's prognosis is guarded. Patient will have an interventional radiology consult to have PICC line inserted. Patient will receive 2 units packed red blood cells for drop in hemoglobin as well as occult stool positive. Surgical has been updated. Patient known to be resistive to care and medical treatment. Continue to monitor electrolytes. Patient will undergo colonoscopy once cleared , in the outpatient setting. Continue with pulmonary hygiene, coughing and deep breathing exercises, and supportive care. Supplemental oxygen to maintain oxygen saturations of 92% or better. Continue nebulizer treatments in the form of DuoNeb and budesonide. . GI and DVT prophylaxis. Appreciate consults recommendations. Patient is currently being worked up for discharge planning to extended care facility. We will continue to monitor labs/results and adjust treatment as necessary. Further recommendations pending. I performed an examination of the patient and discussed their management with the nurse practitioner. I have reviewed the nurse practitioner's note and agree with the documented findings and plan of care.
[2017-05-21] MEDS: IPRATROPIUM-ALBUTEROL 3 ML NEB INHALATION PRN (16:27)
[2017-05-21] MEDS: SUCRALFATE 1 GM TAB PO SCH ×2 (17:12→22:15)
[2017-05-21] MEDS ORDERED: METOPROLOL TARTRATE 5 MG/5 ML VIAL IVP ONE (17:21)
[2017-05-21] MEDS ORDERED: METOPROLOL TARTRATE 5 MG/5 ML VIAL IVP PRN (17:27)
[2017-05-21] MEDS ORDERED: DILTIAZEM 125 MG in SODIUM CHLORIDE 0.9% 100 ML IV SCH (18:45)
[2017-05-21] MEDS ORDERED: FUROSEMIDE 10 MG/ML 4 ML VIAL IV STA (20:28)
[2017-05-21] MEDS: SENNOSIDES-DOCUSATE SODIUM 1 EACH TAB PO SCH (22:06)
[2017-05-21] MEDS: ACETAMINOPHEN TAB 325 MG TAB PO PRN (23:16)
[2017-05-21 23:58] LABS: Glucose,Whole Blood 117 mg/dL (75-99)
--- NOTE | 2017-05-22 00:57 | P.PN ---
Subjective Franco Hill is a 82-year-old right-handed white male who was initially admitted to [facility] on 05/02/2017 for evaluation of sepsis and weakness. Patient was seen in neurology consultation initially back on . He was found to have evidence at that time of diffuse metabolic encephalopathy and acute renal failure. He was also being treated for gram- negative sepsis with organ dysfunction. He has been seen by infectious disease and is followed by Dr. Kenney. The patient apparently was started on symptom feedings early this afternoon and had significant residuals averaging 65 200 mL. The patient also spiked a temperature this afternoon to 101 degrees Fahrenheit. He developed symptoms of hypotension which persisted. Patient was transferred to the intensive care unit where he is now being seen in neurology follow-up. The patient is resting comfortably. He does not appear to be in acute pain. He is able to follow some simple commands. His temperature is now back to normal and is noted to be orally at 97.9. The patient was started on 5 mics of Levophed due to the severe hypotension. His CODE STATUS as per family remains full CODE STATUS at this time. Due to the change in his level of function we have recommended a stat computed tomography scan of the brain to be done this evening to rule out any acute intracranial lesion or other abnormalities. We will also plan to get a follow-up EEG for the patient tomorrow morning. Case was discussed today at length with Dr. Kenney from infectious disease who agrees with our current treatment plan. The patient developed severe anemia today and did require 2 units of packed red cells for treatment. His hemoglobin had dropped to 7.3. Apparently later this evening he developed maroon-colored stools and did require 2 more units of packed red cells. Patient also this evening has developed a low-grade temperature of 100.8. We will await further recommendations from infectious disease. According to the ICU nurse the family has now made the patient DO NOT RESUSCITATE CODE STATUS. His was at bedside and she was updated on his overall poor prognosis and his current neurological condition. She is aware of his very guarded condition at this time. Apparently he has been opening his eyes but has very little verbal output when family is at bedside. We will continue close monitoring of this patient in the intensive care unit. His overall prognosis at this time remains very guarded. Objective - Vital Signs Vital signs: Vital Signs Temp 100.3 F H 08/29/17 23:16 Pulse 132 H 05/21/17 23:16 Resp 22 05/21/17 23:16 BP 91/50 05/21/17 23:16 Pulse Ox 88 L 05/21/17 22:20 Intake & Output 05/21/17 05/21/17 05/22/17 06:59 18:59 06:59 Intake Total 1465 2225 920 Output Total 212 395 705 Balance 1253 1830 215 Weight 64.4 kg 64.4 kg Intake: IV 825 1350 300 Potassium Phosphate 10 600 mmol In Sodium Chloride 0 .9% 250 ml @ 125 mls/hr IV Q2H [facility] Rx#:[id number] Sodium Chloride 0.9% 1, 825 750 300 000 ml @ 75 mls/hr IV . [id number] [facility] Rx#:[id number] Intake, IV Titration 100 Amount Magnesium Sulfate-D5w Pmx 100 1 gm In Dextrose/Water 1 100ml.bag @ 100 mls/hr IVPB Q1H [facility] Rx#: [id number] Tube Feeding 580 405 0 Blood Product 310 620 Rc As-1 Unit 0 310 [id number] Rc As-1 Unit 310 [id number] Rc As-1 Unit 310 [id number] Rc Pheresis 2 As3 Unit 0 [id number] Other 60 60 Output: Urine 212 195 205 Stool 200 500 Other: Voiding Method Indwelling Catheter Indwelling Catheter # Bowel Movements 1 - Exam Physical examination: PHYSICAL EXAMINATION: Patient is resting comfortably in bed. Patient is somewhat lethargic but easily arousable. He does follow simple commands. His is at bedside. VITAL SIGNS: Blood pressure is [91/50]. Heart rate is [132]. Respiration is [22] . Temperature is [100.3]. HEENT: Head is atraumatic, neck is supple, there were no carotid bruits. CHEST: Lungs are clear to auscultation and percussion. CARDIAC: S1, S2 normal rate and rhythm. There is no murmur. ABDOMEN: Soft and nontender. Bowel sounds are present. EXTREMITIES: There is no pedal edema. Peripheral pulses are present. Neurological examination: Patient was transferred to the intensive care unit this evening. He is resting comfortably. He is alert and oriented 2. He is able to follow simple commands. He has generalized weakness. Deep tendon reflexes are 1+ and symmetric. Plantar responses flexor bilaterally. Coordination and gait cannot be assessed in this patient at this time. - Labs CBC & Chem 7: 05/21/17 14:10 05/21/17 14:10 Labs: Abnormal Lab Results - Last 24 Hours (Table) 05/21/17 05/21/17 05/21/17 Range/Units 04:09 04:09 09:36 WBC 13.6 H (3.8-10.6) k/uL RBC 2.80 L (4.30-5.90) m/uL Hgb 8.6 L D (13.0-17.5) gm/dL Hct 28.1 L (39.0-53.0) % MCV 100.2 H (80.0-100.0) fL MCHC 30.7 L (31.0-37.0) g/dL RDW 16.2 H (11.5-15.5) % Neutrophils # 10.7 H (1.3-7.7) k/uL Eosinophils # (0-0.7) k/uL Chloride 117 H (98-107) mmol/L BUN 22 H (9-20) mg/dL Glucose 117 H (74-99) mg/dL POC Glucose (mg/dL) 102 H (75-99) mg/dL Calcium 7.3 L (8.4-10.2) mg/dL Phosphorus 1.5 L (2.5-4.5) mg/dL Total Protein 4.1 L (6.3-8.2) g/dL Albumin 1.7 L (3.5-5.0) g/dL Crossmatch 05/21/17 05/21/17 05/21/17 Range/Units 09:38 14:10 15:25 WBC 15.3 H (3.8-10.6) k/uL RBC 2.31 L (4.30-5.90) m/uL Hgb 7.3 L (13.0-17.5) gm/dL Hct 23.4 L (39.0-53.0) % MCV 101.5 H (80.0-100.0) fL MCHC (31.0-37.0) g/dL RDW 16.4 H (11.5-15.5) % Neutrophils # 11.6 H (1.3-7.7) k/uL Eosinophils # 0.8 H (0-0.7) k/uL Chloride (98-107) mmol/L BUN (9-20) mg/dL Glucose (74-99) mg/dL POC Glucose (mg/dL) 161 H (75-99) mg/dL Calcium (8.4-10.2) mg/dL Phosphorus (2.5-4.5) mg/dL Total Protein (6.3-8.2) g/dL Albumin (3.5-5.0) g/dL Crossmatch See Detail Microbiology - Last 24 Hours (Table) 05/19/17 19:46 Blood Culture - Preliminary Blood No Growth after 48 hours 05/19/17 18:30 Blood Culture - Preliminary Blood No Growth after 48 hours 05/19/17 17:05 Urine Culture - Final Urine,Catheterized Assessment and Plan (1) Acute metabolic encephalopathy Status: Acute Code(s): G93.41 - METABOLIC ENCEPHALOPATHY (2) Gram-negative sepsis with organ dysfunction Status: Acute Code(s): A41.50 - GRAM-NEGATIVE SEPSIS, UNSPECIFIED; R65.20 - SEVERE SEPSIS WITHOUT SEPTIC SHOCK (3) Acute renal failure Status: Acute Code(s): N17.9 - ACUTE KIDNEY FAILURE, UNSPECIFIED (4) Febrile illness Status: Acute Code(s): R50.9 - FEVER, UNSPECIFIED Plan: This patient is a 82-year-old male who was initially admitted to Hospital with symptoms of increasing weakness and sepsis. Today he was on the medical floor and developed residual retention of his tube feedings. He then spiked a temperature of 101F. He then showed signs of severe hypotension. He was transferred to the intensive care unit this evening where he is now been examined. Patient was started on 5 mics of Levophed due to the hypotension. We have arranged for a stat computed tomography scan of the brain to be done this evening for further evaluation. The patient is afebrile at this time. He is being followed closely by infectious disease and Dr. Kenney for gram- negative sepsis. He is on antibiotic coverage. The patient continues to have low-grade temperature today of 100.8. He is also received 4 units of packed red cells due to severe anemia. The family has now decided to make the patient DO NOT RESUSCITATE CODE STATUS due to his complex medical history. The patient remains somewhat encephalopathic at this time. was updated on his overall neurological status and current condition. She is aware of his guarded condition. We will continue close neurological follow-up of this patient in the intensive care unit. His overall prognosis at this time remains very guarded. Case was discussed today at length with the patient's and son at bedside. All of their questions were answered. They're both aware of his guarded condition.
[2017-05-22] MEDS: NOREPINEPHRIN 4 MG-0.9% NS PMX 4 MG/250 ML ML IV SCH (01:09)
[2017-05-22 04:50] LABS: Anisocytosis Slight; Basophils # (A) 0.1 k/uL (0-0.2); Basophils % (A) 1 %; CH 30.9; CHCM 32.7; Eosinophils # (A) 0.1 k/uL (0-0.7); Eosinophils % (A) 0 %; HCT 36.3 % (39.0-53.0); HDW 3.69; Hypochromasia Slight; Luc # (Auto) 0.41; Luc % (Auto) 2; Lymphocytes # (A) 2.5 k/uL (1.0-4.8); Lymphocytes % (A) 13 %; MCHC 32.5 g/dL (31.0-37.0); Macrocytosis Slight; Mean Platelet Volume 9.4; Monocytes # (A) 1.6 k/uL (0-1.0); Monocytes % (A) 8 %; Neutrophils # (A) 14.5 k/uL (1.3-7.7); Neutrophils % (A) 76 %; Poikilocytosis Slight; RDW 17.4 % (11.5-15.5); WBC 19.1 k/uL (3.8-10.6); WBC (Perox) 20.36
[2017-05-22 04:58] LABS: HGB 11.8 gm/dL (13.0-17.5); MCV 95.5 fL (80.0-100.0)
[2017-05-22 05:04] LABS: Phosphorous 2.7 mg/dL (2.5-4.5); Total Bilirubin 0.7 mg/dL (0.2-1.3); Total Protein 3.8 g/dL (6.3-8.2)
[2017-05-22 05:23] LABS: Potassium 4.8 mmol/L (3.5-5.1)
[2017-05-22 05:45] LABS: Glucose,Whole Blood 123 mg/dL (75-99)
[2017-05-22] MEDS: DEXTROSE 5% IN WATER 1,000 ML IV SCH (06:03)
--- NOTE | 2017-05-22 07:45 | XR ---
EXAMINATION TYPE: XR chest 1V portable DATE OF EXAM: 05/22/2017 COMPARISON: 05/12/2017 HISTORY: Shortness of breath TECHNIQUE: Single frontal view of the chest is obtained. FINDINGS: Bibasilar opacities have developed in the interim, partially obscuring the hemidiaphragms. There are low lung volumes accentuating the pulmonary vasculature. Cardia mediastinal silhouette is partially obscured there remains overall unchanged. IMPRESSION: Worsening bibasilar opacities are accentuated by low lung volumes and may relate to atelectasis and/o r trace pleural effusions.
[2017-05-22] MEDS: ENOXAPARIN 40 MG/0.4 ML SYRINGE SQ SCH (07:52)
--- NOTE | 2017-05-22 07:58 | P.PN ---
Subjective Principal diagnosis: GI bleed. This is an 82-year-old white male essentially admitted for acute renal failure and significant weakness. He has had a long course of UTI and waxing and waning consciousness. Yesterday, he ended up getting multiple units of PRBC related to the fact that he had bloody stool. Surgery has been consulted. I'm somewhat leery of entertaining another type of procedure. I have discussed this with the family, we will go ahead and observe for continued bleeding. Otherwise, I will restart ertapenem for coverage. He has an underlying history of colitis with UTI. He has been tolerating tube feedings but this was stopped secondary to potential GI effect. Objective - Vital Signs Vital signs: Vital Signs Temp 98.5 F 05/22/17 05:00 Pulse 151 H 05/22/17 06:00 Resp 33 H 05/22/17 06:00 BP 118/76 05/22/17 06:00 Pulse Ox 99 05/22/17 06:00 Intake & Output 05/21/17 05/22/17 05/22/17 18:59 06:59 18:59 Intake Total 2225 1919.063 Output Total 395 1220 Balance 1830 699.063 Weight 64.4 kg 67.2 kg Intake: IV 1350 900 Potassium Phosphate 10 600 mmol In Sodium Chloride 0 .9% 250 ml @ 125 mls/hr IV Q2H [facility] Rx#:[id number] Sodium Chloride 0.9% 1, 750 900 000 ml @ 75 mls/hr IV . [id number] [facility] Rx#:[id number] Intake, IV Titration 100 89.063 Amount Magnesium Sulfate-D5w Pmx 100 1 gm In Dextrose/Water 1 100ml.bag @ 100 mls/hr IVPB Q1H [facility] Rx#: [id number] Norepinephrin 4 mg-0.9% 89.063 Ns Pmx 4 mg In 250 ml @ Titrate IV .Q0M [facility] Rx#: [id number] Tube Feeding 405 0 Blood Product 310 930 Rc As-1 Unit 0 310 [id number] Rc As-1 Unit 310 [id number] Rc As-1 Unit 310 [id number] Rc Pheresis 2 As3 Unit 310 [id number] Other 60 Output: Urine 195 720 Stool 200 500 Other: Voiding Method Indwelling Catheter Indwelling Catheter - Constitutional General appearance: Present: average body habitus - EENT Eyes: Absent: abnormal pupil - Cardiovascular Rhythm: regular Heart sounds: normal: S1, S2 - Gastrointestinal General gastrointestinal: Present: soft. Absent: tenderness - Musculoskeletal Musculoskeletal: Present: generalized weakness - Labs CBC & Chem 7: 05/22/17 04:23 05/22/17 04:23 Labs: Abnormal Lab Results - Last 24 Hours (Table) 05/21/17 05/21/17 05/21/17 Range/Units 09:36 09:38 14:10 WBC 15.3 H (3.8-10.6) k/uL RBC 2.31 L (4.30-5.90) m/uL Hgb 7.3 L (13.0-17.5) gm/dL Hct 23.4 L (39.0-53.0) % MCV 101.5 H (80.0-100.0) fL RDW 16.4 H (11.5-15.5) % Neutrophils # 11.6 H (1.3-7.7) k/uL Monocytes # (0-1.0) k/uL Eosinophils # 0.8 H (0-0.7) k/uL Sodium (137-145) mmol/L Chloride (98-107) mmol/L Carbon Dioxide (22-30) mmol/L BUN (9-20) mg/dL Creatinine (0.66-1.25) mg/dL Glucose (74-99) mg/dL POC Glucose (mg/dL) 102 H 161 H (75-99) mg/dL Calcium (8.4-10.2) mg/dL Total Protein (6.3-8.2) g/dL Albumin (3.5-5.0) g/dL Crossmatch 05/21/17 05/21/17 05/22/17 Range/Units 15:25 23:55 04:23 WBC 19.1 H (3.8-10.6) k/uL RBC 3.80 L (4.30-5.90) m/uL Hgb 11.8 L D (13.0-17.5) gm/dL Hct 36.3 L (39.0-53.0) % MCV (80.0-100.0) fL RDW 17.4 H (11.5-15.5) % Neutrophils # 14.5 H (1.3-7.7) k/uL Monocytes # 1.6 H (0-1.0) k/uL Eosinophils # (0-0.7) k/uL Sodium (137-145) mmol/L Chloride (98-107) mmol/L Carbon Dioxide (22-30) mmol/L BUN (9-20) mg/dL Creatinine (0.66-1.25) mg/dL Glucose (74-99) mg/dL POC Glucose (mg/dL) 117 H (75-99) mg/dL Calcium (8.4-10.2) mg/dL Total Protein (6.3-8.2) g/dL Albumin (3.5-5.0) g/dL Crossmatch See Detail 05/22/17 05/22/17 Range/Units 04:23 05:44 WBC (3.8-10.6) k/uL RBC (4.30-5.90) m/uL Hgb (13.0-17.5) gm/dL Hct (39.0-53.0) % MCV (80.0-100.0) fL RDW (11.5-15.5) % Neutrophils # (1.3-7.7) k/uL Monocytes # (0-1.0) k/uL Eosinophils # (0-0.7) k/uL Sodium 151 H (137-145) mmol/L Chloride 126 H* (98-107) mmol/L Carbon Dioxide 21 L (22-30) mmol/L BUN 37 H (9-20) mg/dL Creatinine 1.40 H (0.66-1.25) mg/dL Glucose 134 H (74-99) mg/dL POC Glucose (mg/dL) 123 H (75-99) mg/dL Calcium 7.0 L (8.4-10.2) mg/dL Total Protein 3.8 L (6.3-8.2) g/dL Albumin 1.6 L (3.5-5.0) g/dL Crossmatch Microbiology - Last 24 Hours (Table) 05/19/17 19:46 Blood Culture - Preliminary Blood No Growth after 48 hours 05/19/17 18:30 Blood Culture - Preliminary Blood No Growth after 48 hours Assessment and Plan (1) Acute renal failure Status: Acute (2) Gram-negative sepsis with organ dysfunction Status: Acute (3) CVA (cerebral vascular accident) Status: Acute Plan: Continue current regimen of treatment. Check serial CBC. Continue Lovenox but DC Plavix at this time. See orders otherwise.
[2017-05-22] MEDS: BUDESONIDE 0.5 MG/2 ML NEBU INHALATION SCH ×2 (08:52→20:04)
[2017-05-22] MEDS: IPRATROPIUM-ALBUTEROL 3 ML NEB INHALATION SCH ×3 (08:53→20:04)
[2017-05-22] MEDS ORDERED: LIDOCAINE 2% INJ 20 MG/ML SQ ONE (09:03)
--- NOTE | 2017-05-22 09:41 | IR ---
PICC LINE PLACEMENT: HISTORY: Infection requiring long-term antibiotic therapy PROCEDURE: Ultrasound guidance of PICC line placement. COMPLICATIONS: None ANESTHESIA: 1. 1% Lidocaine locally. FINDINGS/TECHNIQUE: The procedure was explained to the patient. The risks, complications, benefits and alternatives were discussed and any questions were answered. Informed consent was obtained. The patient was placed supine on the fluoroscopic table and prepped and draped in the usual sterile fash ion. Utilizing a 21 gauge needle and sonographic guidance, access in the left basilic vein was achi eved and there is placement of a 0.018 guidewire. The vein is patent. A 5-F. sheath was placed over the guidewire. The guidewire and dilator were removed and a 5-F. Double lumen PICC line was placed through the sheath with the chest x-ray confirming the tip at the level of the SVC. The sheath was r emoved, the catheter was flushed and sutured into position. The patient was stable throughout the pr ocedure and remained stable upon discharge from the Department of Radiology. 0 images obtained. The vein puncture was patent under ultrasound. A hawthorne scale image was obtained to document patency of the vein punctured. All elements of the maximal barrier technique were utilized. IMPRESSION: 1. Successful PICC line placement under ultrasound performed bedside within the ICU.
[2017-05-22] MEDS: SUCRALFATE 1 GM TAB PO SCH ×4 (09:57→21:40)
[2017-05-22] MEDS: METOPROLOL TARTRATE 50 MG TAB PO SCH ×3 (09:57→21:40)
[2017-05-22] MEDS: LORATADINE 10 MG TAB PO SCH (09:57)
[2017-05-22] MEDS: ERTAPENEM 1 GM in SODIUM CHLORIDE 0.9% 50 ML IVPB SCH (09:57)
[2017-05-22] MEDS: PANTOPRAZOLE 40 MG/10 ML VIAL IVP SCH (09:57)
[2017-05-22] MEDS: BACITRACIN/POLYMYX 500-10,000 UNIT/GM OPHTH OINT 3.5 GM TUBE BOTH EYES SCH ×4 (09:58→21:40)
--- NOTE | 2017-05-22 10:40 | XR ---
EXAMINATION TYPE: XR chest 1V confirm line [facility], [facility] DATE OF EXAM: 05/22/2017 COMPARISON: 05/22/2017 HISTORY: Shortness of breath and line placement TECHNIQUE: Single frontal view of the chest is obtained. FINDINGS: Left-sided PICC line seen with the tip overlying the right atrium. Bilateral infiltrate an d small effusion. No pneumothorax. Limited inspiration. IMPRESSION: 1. stable bilateral infiltrate and small effusion could not exclude mild venous congestion. 2. PICC line appears in good position.
[2017-05-22] MEDS: SODIUM CHLORIDE 0.9% 1,000 ML IV SCH (12:56)
[2017-05-22] MEDS: AMMONIUM LACTATE 12% LOTION 225 GM BTL TOPICAL SCH ×2 (12:56→20:32)
[2017-05-22] MEDS: HYDROcodone/APAP 15 ML SOLUTION PEG/G-TUBE PRN (14:05)
--- NOTE | 2017-05-22 19:50 | P.PN ---
Subjective Principal diagnosis: Patient seen and evaluated exam and clinically patient is doing well in terms of breathing is still issues associated with swallowing dysfunction is present patient has been found ESBL E. coli UTI antibiotics are adjusted by the infectious disease services hemodynamic status stable 05/08/17- This is an 82-year-old male patient who came into the emergency department on 05/02/2017 from an extended care facility. Patient was noted to have a potassium of 6.4 at the extended care facility and therefore they sent him over. The patient did not have any further complaints and he has intermittent confusion which is his baseline. EKG performed in the emergency room did show sinus rhythm with occasional PVCs, patient had no ST segment elevation or depression or T-wave abnormalities. The patient was put on lactulose. Hypertension is also being worked up for possible rectal mass and will undergo colonoscopy when stable with Dr. Piña. All labs and reports have been reviewed. Patient is being seen and examined today on the sixth floor for pulmonary services related to progression of shortness of breath over the last few days. He has had a cough however denies any congestion. Nursing staff has denied any sputum production. He is alert and oriented 1 with intermittent confusion. Has been afebrile. Currently is on 3 L of supplemental oxygen via nasal cannula. It is unclear if the patient utilized oxygen in the extended care facility setting. Patient is also on a mechanical soft diet with aspiration precautions. 05/09/17- this patient is being evaluated and examined and seen on rounds today. All labs and reports were reviewed. The patient hyperkalemia has improved. The white blood cell count has come down to 12.8. Patient was noted to have increased lethargy and decreased cognition yesterday afternoon therefore a neurology consult was initiated. Patient is going for a CT of the brain as well as an EEG today. Patient's speech is noted to be slightly slurred and mumbled. Overnight he was noted to refuse care, had increase in agitation, and was refusing food and fluids. and primary care were updated. 05/10/17- this patient is being evaluated exam and seen today on the selective care unit. All labs and reports have been reviewed. Patient appears more awake today than previously. Patient did undergo a CT of the brain and EEG yesterday. Neurology and nephrology is on consult. Patient's prognosis is guarded and he has multiple comorbidities. Upon examination the patient's resting up in bed on room air states he occasionally has shortness of breath with exertion. He denies any cough or congestion at this time. Discharge planning is in process and appears the patient will go back to extended care facility when discharged. 05/11/17- patient is being seen in evaluated and examined today on the fifth floor. Patient is known to be slightly tired however is easily awoken. Currently he is resting up in bed on room air. Patient noticed to have a faint light red flat erythema rash to his right lateral chest. He denies any itching or pain. The area is small and diffuse. We will continue to monitor this. He does have Lotrisone cream for the area. On examination he denies any shortness of breath cough or congestion. Family at bedside updated on plan of care. 05/12/17- patient is being seen examined and evaluated today on the floor. The patient continues to be tired however is easily aroused upon examination. No further progression is noted of his rash to the right lateral chest. On examination patient's resting up in bed on room air. Shortness of breath as noted with exertion. Intermittent cough. He is afebrile, no overnight events. 05/13/17- patient is being seen examined and evaluated today on the floor. On examination the patient is resting in bed on room air, continues with shortness of breath on exertion. According to the nursing staff during breakfast the patient was coughing and choking and has dysphagia diet. Continue swallow evaluation with speech therapy has been ordered. Patient seen and evaluated examined today given that he has significant risk of aspiration and aspiration related complication and likelihood of recovery from that is very poor patient is now being considered for PEG tube placement which is being planned for today, from respiratory standpoint however doing fairly well still of intermittent cough and congestion but no significant desaturation he does get short of breath on activity and exertion Patient seen and evaluated examined during the rounds on 05/16/2017, patient is awake but remains extremely confused, patient is currently going swallow evaluation even with honey thick nectar and half a spoon very slow patient continued to have coughing spells suggestive of ongoing aspiration, on examination patient does have coarse breath sounds however no clear hearing gurgling is seen or noted, given presence of significant aspiration patient will need to be reevaluated for alternative means of nutrition support 05/08/17- This is an 82-year-old male patient who came into the emergency department on 05/02/2017 from an extended care facility. Patient was noted to have a potassium of 6.4 at the extended care facility and therefore they sent him over. The patient did not have any further complaints and he has intermittent confusion which is his baseline. EKG performed in the emergency room did show sinus rhythm with occasional PVCs, patient had no ST segment elevation or depression or T-wave abnormalities. The patient was put on lactulose. Hypertension is also being worked up for possible rectal mass and will undergo colonoscopy when stable with Dr. Piña. All labs and reports have been reviewed. Patient is being seen and examined today on the sixth floor for pulmonary services related to progression of shortness of breath over the last few days. He has had a cough however denies any congestion. Nursing staff has denied any sputum production. He is alert and oriented 1 with intermittent confusion. Has been afebrile. Currently is on 3 L of supplemental oxygen via nasal cannula. It is unclear if the patient utilized oxygen in the extended care facility setting. Patient is also on a mechanical soft diet with aspiration precautions. 05/09/17- this patient is being evaluated and examined and seen on rounds today. All labs and reports were reviewed. The patient hyperkalemia has improved. The white blood cell count has come down to 12.8. Patient was noted to have increased lethargy and decreased cognition yesterday afternoon therefore a neurology consult was initiated. Patient is going for a CT of the brain as well as an EEG today. Patient's speech is noted to be slightly slurred and mumbled. Overnight he was noted to refuse care, had increase in agitation, and was refusing food and fluids. and primary care were updated. 05/10/17- this patient is being evaluated exam and seen today on the selective care unit. All labs and reports have been reviewed. Patient appears more awake today than previously. Patient did undergo a CT of the brain and EEG yesterday. Neurology and nephrology is on consult. Patient's prognosis is guarded and he has multiple comorbidities. Upon examination the patient's resting up in bed on room air states he occasionally has shortness of breath with exertion. He denies any cough or congestion at this time. Discharge planning is in process and appears the patient will go back to extended care facility when discharged. 05/11/17- patient is being seen in evaluated and examined today on the fifth floor. Patient is known to be slightly tired however is easily awoken. Currently he is resting up in bed on room air. Patient noticed to have a faint light red flat erythema rash to his right lateral chest. He denies any itching or pain. The area is small and diffuse. We will continue to monitor this. He does have Lotrisone cream for the area. On examination he denies any shortness of breath cough or congestion. Family at bedside updated on plan of care. 05/12/17- patient is being seen examined and evaluated today on the floor. The patient continues to be tired however is easily aroused upon examination. No further progression is noted of his rash to the right lateral chest. On examination patient's resting up in bed on room air. Shortness of breath as noted with exertion. Intermittent cough. He is afebrile, no overnight events. 05/13/17- patient is being seen examined and evaluated today on the floor. On examination the patient is resting in bed on room air, continues with shortness of breath on exertion. According to the nursing staff during breakfast the patient was coughing and choking and has dysphagia diet. Continue swallow evaluation with speech therapy has been ordered. 05/20/17- patient is being seen examined and evaluated today in the intensive care unit. Currently the patient is resting up in bed on 2 L of supplemental oxygen via nasal cannula. Patient continues to be tachycardic and oxygen dependent. Patient did undergo a procedure for PEG tube and is currently tolerating tube feeds. Chest x-ray has been reviewed from this morning and does show a correlation for CHF, underlying pneumonia not excluded. Upon examination the patient's vasopressors are on hold. We are trying to wean the patient off of pressors at this time. 05/21/17- patient is being seen examined and evaluated today in the intensive care unit. Patient has been noted to have significant tachycardia with episodes of hypotension, he was noted to have increased bowel movements that were loose and dark. Occult blood was sent to lab and came back positive. The patient had FMF in place. Surgical has been updated. Hemoglobin noted to drop from 8.6 this morning now down to 7.3. Orders given for 2 units of packed red blood cells as well as consult interventional radiology for PICC line insertion. chest x-ray from this afternoon revealed improved variation in both lung bases. 05/22/2017, patient seen and examined in the ICU remains hypertensive but intermittent continue to have episodes of tachycardia the beta blockers are being used cautiously currently patient heart rate is about 150-160 and appears to be sinus tachycardia Cardizem drip is not working so is being discontinued patient is on IV Lopressor has been on by mouth Lopressor as well he has been transfused with packed RBC indexes of bleeding that has been seen overnight has appears to settle down patient slightly more awake now family is present at bedside care plan discussed with them the advice to proceed with a DO NOT RESUSCITATE CODE STATUS, patient is status post PICC line placement Objective - Vital Signs Vital signs: Vital Signs Temp 97.8 F 05/22/17 16:00 Pulse 93 05/22/17 19:00 Resp 19 05/22/17 19:00 BP 87/57 05/22/17 19:00 Pulse Ox 99 05/22/17 19:00 Intake & Output 05/22/17 05/22/17 05/23/17 06:59 18:59 06:59 Intake Total 8498.706 9600.792 Output Total 1220 810 Balance 699.063 269.792 Weight 67.2 kg Intake: IV 900 900 Sodium Chloride 0.9% 1, 900 900 000 ml @ 75 mls/hr IV . [id number] [facility] Rx#:[id number] Intake, IV Titration 89.063 89.792 Amount Diltiazem 125 mg In 71.167 Sodium Chloride 0.9% 100 ml @ 5 MG/HR 5 mls/hr IV .Q24H [facility] Rx#:[id number] Norepinephrin 4 mg-0.9% 89.063 18.625 Ns Pmx 4 mg In 250 ml @ Titrate IV .Q0M [facility] Rx#: [id number] Tube Feeding 0 30 Blood Product 930 Rc As-1 Unit 310 [id number] Rc As-1 Unit 310 [id number] Rc Pheresis 2 As3 Unit 310 [id number] Other 60 Output: Urine 720 410 Stool 500 400 Other: Voiding Method Indwelling Catheter Indwelling Catheter - Exam GENERAL EXAM: Alert, intermittent confusion noted which is baseline, comfortable in no apparent distress. HEAD: Normocephalic. EYES: Normal reaction of pupils, equal size. NOSE: Clear with pink turbinates. THROAT: No erythema or exudates. NECK: No masses, no JVD. CHEST: No chest wall deformity. LUNGS: Equal air entry with no crackles, wheeze, rhonchi or dullness. Breath sounds decreased bilaterally. CVS: S1 and S2 normal with no audible mumurs, regular rhythm. ABDOMEN: No hepatosplenomegaly, normal bowel sounds, no guarding or rigidity. PEG tube in place clean dry and intact, FMS in place EXTREMITIES: +2 edema noted, pedal pulses palpable. Chronic skin changes noted , bilateral legs wrapped SKIN: Multiple skin tears, flat erythema diffuse rash to right lateral chest, cream applied CENTRAL NERVOUS SYSTEM: No focal deficits, moves all 4 extremities. - Labs CBC & Chem 7: 05/22/17 04:23 05/22/17 04:23 Labs: Abnormal Lab Results - Last 24 Hours (Table) 05/21/17 05/21/17 05/22/17 Range/Units 15:25 23:55 04:23 WBC 19.1 H (3.8-10.6) k/uL RBC 3.80 L (4.30-5.90) m/uL Hgb 11.8 L D (13.0-17.5) gm/dL Hct 36.3 L (39.0-53.0) % RDW 17.4 H (11.5-15.5) % Neutrophils # 14.5 H (1.3-7.7) k/uL Monocytes # 1.6 H (0-1.0) k/uL Sodium (137-145) mmol/L Chloride (98-107) mmol/L Carbon Dioxide (22-30) mmol/L BUN (9-20) mg/dL Creatinine (0.66-1.25) mg/dL Glucose (74-99) mg/dL POC Glucose (mg/dL) 117 H (75-99) mg/dL Calcium (8.4-10.2) mg/dL Total Protein (6.3-8.2) g/dL Albumin (3.5-5.0) g/dL Crossmatch See Detail 05/22/17 05/22/17 Range/Units 04:23 05:44 WBC (3.8-10.6) k/uL RBC (4.30-5.90) m/uL Hgb (13.0-17.5) gm/dL Hct (39.0-53.0) % RDW (11.5-15.5) % Neutrophils # (1.3-7.7) k/uL Monocytes # (0-1.0) k/uL Sodium 151 H (137-145) mmol/L Chloride 126 H* (98-107) mmol/L Carbon Dioxide 21 L (22-30) mmol/L BUN 37 H (9-20) mg/dL Creatinine 1.40 H (0.66-1.25) mg/dL Glucose 134 H (74-99) mg/dL POC Glucose (mg/dL) 123 H (75-99) mg/dL Calcium 7.0 L (8.4-10.2) mg/dL Total Protein 3.8 L (6.3-8.2) g/dL Albumin 1.6 L (3.5-5.0) g/dL Crossmatch Microbiology - Last 24 Hours (Table) 05/19/17 19:46 Blood Culture - Preliminary Blood No Growth after 48 hours 05/19/17 18:30 Blood Culture - Preliminary Blood No Growth after 48 hours Assessment and Plan Plan: Assessment Supraventricular tachycardia likely related to the intravascular water depletion dehydration and anemia with ongoing intermittent GI loss Recurrent intermittent aspiration with episodes of silent aspiration patient is status post PEG tube placement Urinary tract infection, culture positive for gram negatives bacilli and E. coli , which appears to be ESBL, IVS adjust antibiotics Sepsis with fever, gram-negative Acute hypoxic respiratory failure Hyperkalemia, improved Acute renal failure Urinary tract infection, culture positive for gram negatives bacilli and E. coli Hypernatremia likely related to decreased oral intake Probable rectal mass, currently being worked up Diarrhea History of CVA Hypotension Plan Continue proton pump inhibitors patient is not interested to undergo aggressive diagnostic evaluation slight improvement in general clinical condition has been noted see orders for detail Medications have been reviewed and will be continued as ordered. Patient's prognosis is guarded. Patient is a status post PICC line. Patient will receive 2 units packed red blood cells for drop in hemoglobin as well as occult stool positive, if hemoglobin repeat comes back less than 7. Surgical has been updated, and therefore living closely. Patient known to be resistive to care and medical treatment. Continue to monitor electrolytes. Patient will undergo colonoscopy once cleared , in the outpatient setting. Continue with pulmonary hygiene, coughing and deep breathing exercises, and supportive care. Supplemental oxygen to maintain oxygen saturations of 92% or better. Continue nebulizer treatments in the form of DuoNeb and budesonide. . GI and DVT prophylaxis. Appreciate consults recommendations. Patient is currently being worked up for discharge planning to extended care facility. We will continue to monitor labs/results and adjust treatment as necessary. Further recommendations pending., Critical care time spent 35 minutes Time with Patient: Greater than 30
[2017-05-23] MEDS: ACETAMINOPHEN TAB 325 MG TAB PO PRN (01:35)
[2017-05-23 05:32] LABS: Calcium 6.9 mg/dL (8.4-10.2); Phosphorous 2.2 mg/dL (2.5-4.5); Potassium 4.3 mmol/L (3.5-5.1); Total Bilirubin 0.2 mg/dL (0.2-1.3); Total Protein 3.5 g/dL (6.3-8.2)
[2017-05-23 05:36] LABS: Anisocytosis Slight; Basophils # (A) 0.1 k/uL (0-0.2); Basophils % (A) 0 %; CH 29.8; Eosinophils # (A) 0.2 k/uL (0-0.7); Eosinophils % (A) 1 %; HCT 28.9 % (39.0-53.0); HDW 3.65; Hypochromasia Moderate; Luc # (Auto) 0.32; Luc % (Auto) 2; Lymphocytes # (A) 1.9 k/uL (1.0-4.8); Lymphocytes % (A) 9 %; MCH 30.7 pg (25.0-35.0); MCHC 32.6 g/dL (31.0-37.0); MCV 94.2 fL (80.0-100.0); Mean Platelet Volume 8.6; Monocytes # (A) 1.1 k/uL (0-1.0); Monocytes % (A) 5 %; Neutrophils % (A) 83 %; Poikilocytosis Slight; RBC 3.07 m/uL (4.30-5.90); RDW 16.9 % (11.5-15.5); WBC 21.7 k/uL (3.8-10.6); WBC (Perox) 21.97
[2017-05-23 05:38] LABS: HGB 9.4 gm/dL (13.0-17.5)
[2017-05-23 05:57] LABS: Manual Review Performed
[2017-05-23] MEDS: ENOXAPARIN 40 MG/0.4 ML SYRINGE SQ SCH (06:10)
[2017-05-23] MEDS ORDERED: Phosphorus Replacement Protoco 1 EACH MISC MISCELLANE PRN (06:26)
[2017-05-23] MEDS ORDERED: POTASSIUM PHOSPHATE 10 MMOL in SODIUM CHLORIDE 0.9% 100 ML IV ONE (06:26)
[2017-05-23] MEDS ORDERED: CALCIUM GLUCONATE 2,000 MG in SODIUM CHLORIDE 0.9% 100 ML IVPB ONE (06:31)
[2017-05-23] MEDS: SODIUM CHLORIDE 0.45% 1,000 ML IV SCH ×2 (07:09→21:15)
[2017-05-23] MEDS: SODIUM CHLORIDE 0.9% 1,000 ML IV SCH (07:19)
--- NOTE | 2017-05-23 07:58 | P.PN ---
Subjective Principal diagnosis: Anemia with continuing care. This is an 82-year-old white male essentially admitted for acute renal failure with sepsis. He's been placed on appropriate antibiotic therapy for 2 weeks but then started spiking a temperature. He's been struggling with tachycardia but beta blockers have now been stabilizing him. He's received multiple units of PRBC secondary to GI bleeding. Rectal tube is now been placed and there has not been significant noticeable bright red blood at all. However, blood count has dropped from 11 to about 9.4. Surgery is consulted. I'm somewhat leery of having him undergo another procedure. He is otherwise waxing and waning as far as his consciousness. Generalized severe weakness otherwise noted. Objective - Vital Signs Vital signs: Vital Signs Temp 97.4 F L 05/23/17 04:00 Pulse 107 H 05/23/17 06:00 Resp 20 05/23/17 06:00 BP 106/86 05/23/17 06:00 Pulse Ox 76 L 05/23/17 06:00 Intake & Output 05/22/17 05/23/17 05/23/17 18:59 06:59 18:59 Intake Total 1079.792 855 75 Output Total 810 1555 30 Balance 269.792 -700 45 Weight 68 kg Intake: IV 900 825 75 Sodium Chloride 0.45% 1, 75 000 ml @ 75 mls/hr IV . [id number] [facility] Rx#:[id number] Sodium Chloride 0.9% 1, 900 825 000 ml @ 75 mls/hr IV . [id number] [facility] Rx#:[id number] Intake, IV Titration 89.792 Amount Diltiazem 125 mg In 71.167 Sodium Chloride 0.9% 100 ml @ 5 MG/HR 5 mls/hr IV .Q24H [facility] Rx#:[id number] Norepinephrin 4 mg-0.9% 18.625 Ns Pmx 4 mg In 250 ml @ Titrate IV .Q0M [facility] Rx#: [id number] Tube Feeding 30 30 Other 60 Output: Urine 410 355 30 Stool 400 1200 Other: Voiding Method Indwelling Catheter Indwelling Catheter - Constitutional General appearance: Present: average body habitus - EENT Eyes: Absent: abnormal pupil - Respiratory Respiratory: bilateral: diminished - Cardiovascular Rhythm: regular - Gastrointestinal General gastrointestinal: Present: soft. Absent: tenderness - Integumentary Integumentary: Present: pale - Musculoskeletal Musculoskeletal: Present: generalized weakness - Labs CBC & Chem 7: 05/23/17 05:15 05/23/17 05:15 Labs: Abnormal Lab Results - Last 24 Hours (Table) 05/23/17 05/23/17 Range/Units 05:15 05:15 WBC 21.7 H (3.8-10.6) k/uL RBC 3.07 L (4.30-5.90) m/uL Hgb 9.4 L D (13.0-17.5) gm/dL Hct 28.9 L (39.0-53.0) % RDW 16.9 H (11.5-15.5) % Neutrophils # 18.0 H (1.3-7.7) k/uL Monocytes # 1.1 H (0-1.0) k/uL Sodium 156 H (137-145) mmol/L Chloride 129 H* (98-107) mmol/L BUN 40 H (9-20) mg/dL Creatinine 1.38 H (0.66-1.25) mg/dL Glucose 119 H (74-99) mg/dL Calcium 6.9 L (8.4-10.2) mg/dL Phosphorus 2.2 L (2.5-4.5) mg/dL Total Protein 3.5 L (6.3-8.2) g/dL Albumin 1.4 L (3.5-5.0) g/dL Microbiology - Last 24 Hours (Table) 05/19/17 19:46 Blood Culture - Preliminary Blood No Growth after 72 hours 05/19/17 18:30 Blood Culture - Preliminary Blood No Growth after 72 hours Assessment and Plan (1) Acute renal failure Status: Acute (2) Gram-negative sepsis with organ dysfunction Status: Acute (3) CVA (cerebral vascular accident) Status: Acute Plan: I'm somewhat concerned about his somewhat low hemoglobin. Question need for surgical procedure at this point. Prognosis is very guarded secondary to his multiple comorbidities. Otherwise watch lites closely. Continue current regimen of antibiotic treatment. Check CBC and CMP in a.m. Time with Patient: Greater than 30
[2017-05-23] MEDS: BUDESONIDE 0.5 MG/2 ML NEBU INHALATION SCH ×2 (09:06→22:11)
[2017-05-23] MEDS: IPRATROPIUM-ALBUTEROL 3 ML NEB INHALATION SCH ×3 (09:06→22:11)
--- NOTE | 2017-05-23 09:47 | P.PN ---
Subjective 05/08/17- This is an 82-year-old male patient who came into the emergency department on 05/02/2017 from an extended care facility. Patient was noted to have a potassium of 6.4 at the extended care facility and therefore they sent him over. The patient did not have any further complaints and he has intermittent confusion which is his baseline. EKG performed in the emergency room did show sinus rhythm with occasional PVCs, patient had no ST segment elevation or depression or T-wave abnormalities. The patient was put on lactulose. Hypertension is also being worked up for possible rectal mass and will undergo colonoscopy when stable with Dr. Piña. All labs and reports have been reviewed. Patient is being seen and examined today on the sixth floor for pulmonary services related to progression of shortness of breath over the last few days. He has had a cough however denies any congestion. Nursing staff has denied any sputum production. He is alert and oriented 1 with intermittent confusion. Has been afebrile. Currently is on 3 L of supplemental oxygen via nasal cannula. It is unclear if the patient utilized oxygen in the extended care facility setting. Patient is also on a mechanical soft diet with aspiration precautions. 05/09/17- this patient is being evaluated and examined and seen on rounds today. All labs and reports were reviewed. The patient hyperkalemia has improved. The white blood cell count has come down to 12.8. Patient was noted to have increased lethargy and decreased cognition yesterday afternoon therefore a neurology consult was initiated. Patient is going for a CT of the brain as well as an EEG today. Patient's speech is noted to be slightly slurred and mumbled. Overnight he was noted to refuse care, had increase in agitation, and was refusing food and fluids. and primary care were updated. 05/10/17- this patient is being evaluated exam and seen today on the selective care unit. All labs and reports have been reviewed. Patient appears more awake today than previously. Patient did undergo a CT of the brain and EEG yesterday. Neurology and nephrology is on consult. Patient's prognosis is guarded and he has multiple comorbidities. Upon examination the patient's resting up in bed on room air states he occasionally has shortness of breath with exertion. He denies any cough or congestion at this time. Discharge planning is in process and appears the patient will go back to extended care facility when discharged. 05/11/17- patient is being seen in evaluated and examined today on the fifth floor. Patient is known to be slightly tired however is easily awoken. Currently he is resting up in bed on room air. Patient noticed to have a faint light red flat erythema rash to his right lateral chest. He denies any itching or pain. The area is small and diffuse. We will continue to monitor this. He does have Lotrisone cream for the area. On examination he denies any shortness of breath cough or congestion. Family at bedside updated on plan of care. 05/12/17- patient is being seen examined and evaluated today on the floor. The patient continues to be tired however is easily aroused upon examination. No further progression is noted of his rash to the right lateral chest. On examination patient's resting up in bed on room air. Shortness of breath as noted with exertion. Intermittent cough. He is afebrile, no overnight events. 05/13/17- patient is being seen examined and evaluated today on the floor. On examination the patient is resting in bed on room air, continues with shortness of breath on exertion. According to the nursing staff during breakfast the patient was coughing and choking and has dysphagia diet. Continue swallow evaluation with speech therapy has been ordered. 05/14/17-05/19/[address] Valverde's dictations 05/20/17- patient is being seen examined and evaluated today in the intensive care unit. Currently the patient is resting up in bed on 2 L of supplemental oxygen via nasal cannula. Patient continues to be tachycardic and oxygen dependent. Patient did undergo a procedure for PEG tube and is currently tolerating tube feeds. Chest x-ray has been reviewed from this morning and does show a correlation for CHF, underlying pneumonia not excluded. Upon examination the patient's vasopressors are on hold. We are trying to wean the patient off of pressors at this time. 05/21/17- patient is being seen examined and evaluated today in the intensive care unit. Patient has been noted to have significant tachycardia with episodes of hypotension, he was noted to have increased bowel movements that were loose and dark. Occult blood was sent to lab and came back positive. The patient had FMF in place. Surgical has been updated. Hemoglobin noted to drop from 8.6 this morning now down to 7.3. Orders given for 2 units of packed red blood cells as well as consult interventional radiology for PICC line insertion. chest x-ray from this afternoon revealed improved variation in both lung bases. 05/22/17- patient seen and examined in the ICU remains hypertensive but intermittent continue to have episodes of tachycardia the beta blockers are being used cautiously currently patient heart rate is about 150-160 and appears to be sinus tachycardia Cardizem drip is not working so is being discontinued patient is on IV Lopressor has been on by mouth Lopressor as well he has been transfused with packed RBC indexes of bleeding that has been seen overnight has appears to settle down patient slightly more awake now family is present at bedside care plan discussed with them the advice to proceed with a DO NOT RESUSCITATE CODE STATUS, patient is status post PICC line placement 05/23/17- patient is being seen examined and evaluated today in the intensive care unit. Patient has received a total of 4 units of packed red blood cells. Hemoglobin is noted to drop from 11.8 to 9.4 today. Surgery is also on consult , however he has a high risk candidate. His fecal management system is in place and the stools look less maroon today than previous. He continues to have intermittent confusion. His sodium was noted to be 155 today, as well as a chloride of 129. We have increased his free water flushes via PEG tube to 250 ML's every 6. Upon examination the patient's resting up in bed on 3 L of supplemental oxygen via nasal cannula. He continues to have a dry cough. Currently he is afebrile, no further complaints. Objective - Vital Signs Vital signs: Vital Signs Temp 98.2 F 05/23/17 08:00 Pulse 153 H 05/23/17 09:25 Resp 25 H 05/23/17 08:00 BP 119/58 05/23/17 08:00 Pulse Ox 96 05/23/17 08:00 Intake & Output 05/22/17 05/23/17 05/23/17 18:59 06:59 18:59 Intake Total 1079.792 855 75 Output Total 810 1555 30 Balance 269.792 -700 45 Weight 68 kg Intake: IV 900 825 75 Sodium Chloride 0.45% 1, 75 000 ml @ 75 mls/hr IV . [id number] [facility] Rx#:[id number] Sodium Chloride 0.9% 1, 900 825 000 ml @ 75 mls/hr IV . [id number] [facility] Rx#:[id number] Intake, IV Titration 89.792 Amount Diltiazem 125 mg In 71.167 Sodium Chloride 0.9% 100 ml @ 5 MG/HR 5 mls/hr IV .Q24H [facility] Rx#:[id number] Norepinephrin 4 mg-0.9% 18.625 Ns Pmx 4 mg In 250 ml @ Titrate IV .Q0M [facility] Rx#: [id number] Tube Feeding 30 30 Other 60 Output: Urine 410 355 30 Stool 400 1200 Other: Voiding Method Indwelling Catheter Indwelling Catheter - Exam GENERAL EXAM: Alert, intermittent confusion noted which is baseline, comfortable in no apparent distress. HEAD: Normocephalic. EYES: Normal reaction of pupils, equal size. NOSE: Clear with pink turbinates. THROAT: No erythema or exudates. NECK: No masses, no JVD. CHEST: No chest wall deformity. LUNGS: Equal air entry with no crackles, wheeze, rhonchi or dullness. Breath sounds decreased bilaterally. CVS: S1 and S2 normal with no audible mumurs, regular rhythm. ABDOMEN: No hepatosplenomegaly, normal bowel sounds, no guarding or rigidity. PEG tube in place clean dry and intact, FMS in place EXTREMITIES: +2 edema noted, pedal pulses palpable. Chronic skin changes noted , bilateral legs wrapped SKIN: Multiple skin tears, flat erythema diffuse rash to right lateral chest, cream applied CENTRAL NERVOUS SYSTEM: No focal deficits, moves all 4 extremities. - Labs CBC & Chem 7: 05/23/17 05:15 05/23/17 05:15 Labs: Abnormal Lab Results - Last 24 Hours (Table) 05/23/17 05/23/17 Range/Units 05:15 05:15 WBC 21.7 H (3.8-10.6) k/uL RBC 3.07 L (4.30-5.90) m/uL Hgb 9.4 L D (13.0-17.5) gm/dL Hct 28.9 L (39.0-53.0) % RDW 16.9 H (11.5-15.5) % Neutrophils # 18.0 H (1.3-7.7) k/uL Monocytes # 1.1 H (0-1.0) k/uL Sodium 156 H (137-145) mmol/L Chloride 129 H* (98-107) mmol/L BUN 40 H (9-20) mg/dL Creatinine 1.38 H (0.66-1.25) mg/dL Glucose 119 H (74-99) mg/dL Calcium 6.9 L (8.4-10.2) mg/dL Phosphorus 2.2 L (2.5-4.5) mg/dL Total Protein 3.5 L (6.3-8.2) g/dL Albumin 1.4 L (3.5-5.0) g/dL Microbiology - Last 24 Hours (Table) 05/19/17 19:46 Blood Culture - Preliminary Blood No Growth after 72 hours 05/19/17 18:30 Blood Culture - Preliminary Blood No Growth after 72 hours Assessment and Plan Plan: Assessment Supraventricular tachycardia likely related to the intravascular water depletion dehydration and anemia with ongoing intermittent GI loss Recurrent intermittent aspiration with episodes of silent aspiration patient is status post PEG tube placement Urinary tract infection, culture positive for gram negatives bacilli and E. coli , which appears to be ESBL, IVS adjust antibiotics Sepsis with fever, gram-negative Acute hypoxic respiratory failure Hyperkalemia, improved Acute renal failure Urinary tract infection, culture positive for gram negatives bacilli and E. coli Hypernatremia likely related to decreased oral intake Probable rectal mass, currently being worked up Diarrhea History of CVA Hypotension Plan Medications have been reviewed and will be continued as ordered. Patient's prognosis is guarded. Patient did have an interventional radiology consult to have PICC line inserted. Patient did receive 4 units packed red blood cells for drop in hemoglobin as well as occult stool positive. Surgical has been updated. Patient known to be resistive to care and medical treatment. Continue to monitor electrolytes. Patient will undergo colonoscopy once cleared , in the outpatient setting. Continue with pulmonary hygiene, coughing and deep breathing exercises, and supportive care. Supplemental oxygen to maintain oxygen saturations of 92% or better. Continue nebulizer treatments in the form of DuoNeb and budesonide. . GI and DVT prophylaxis. Appreciate consults recommendations. Patient is currently being worked up for discharge planning to extended care facility. We will continue to monitor labs/results and adjust treatment as necessary. Further recommendations pending. I performed an examination of the patient and discussed their management with the nurse practitioner. I have reviewed the nurse practitioner's note and agree with the documented findings and plan of care.
[2017-05-23] MEDS: METOPROLOL TARTRATE 50 MG TAB PO SCH ×3 (10:06→20:59)
[2017-05-23] MEDS: SUCRALFATE 1 GM TAB PO SCH ×4 (10:07→20:59)
[2017-05-23] MEDS: LORATADINE 10 MG TAB PO SCH (10:07)
[2017-05-23] MEDS: AMMONIUM LACTATE 12% LOTION 225 GM BTL TOPICAL SCH ×2 (10:07→21:08)
[2017-05-23] MEDS: BACITRACIN/POLYMYX 500-10,000 UNIT/GM OPHTH OINT 3.5 GM TUBE BOTH EYES SCH ×4 (10:07→21:08)
[2017-05-23] MEDS: PANTOPRAZOLE 40 MG/10 ML VIAL IVP SCH (10:07)
[2017-05-23] MEDS: ERTAPENEM 1 GM in SODIUM CHLORIDE 0.9% 50 ML IVPB SCH (10:10)
--- NOTE | 2017-05-23 19:13 | P.PN ---
Subjective Principal diagnosis: sepsis 82-year-old male resident of [facility] was found evidence of multiple abnormal labs included acute renal failure and hyperkalemia. The patient was transferred from the [facility] for further intervention. Infectious diseases consultation was requested when the patient developed a high-grade fever reportedly over 104. the consult was initiated as the patient became febrile, hypotensive and tachycardic. The patient is a poor historian. The patient today is a bit more comfortable than reported last evening. He relates that he has minimal hunger. His mouth is dry. As related lactic acid was drawn which was elevated and had evidence of leukocytosis, the patient was given fluids and antibiotic therapy with Zosyn given the concerns to urinary system as well as potential abdominal source since he was having some diarrhea. As the patient is slightly more comfortable. Has been seen by surgery and is being monitored for a potential colonoscopy in the future. Regarding ongoing treatment for the colonic abscess. No complaints except for fatigue.. As noted there is been the difficulty with his nutrition. Concerns of an aspiration event. PEG tube is been placed and is being utilized at this time under the supervision of surgery. The patient has remained with some shortness of breath and tachypnea Óscar on some supplemental oxygen. Remains confused. Objective - Vital Signs Vital signs: Vital Signs Temp 98.1 F 05/23/17 17:15 Pulse 106 H 05/23/17 18:00 Resp 37 H 05/23/17 18:00 BP 93/50 05/23/17 18:00 Pulse Ox 79 L 05/23/17 18:00 Intake & Output 05/23/17 05/23/17 05/24/17 06:59 18:59 06:59 Intake Total 855 1790 Output Total 1555 1080 Balance -700 710 Weight 68 kg 67.8 kg Intake: IV 825 900 Sodium Chloride 0.45% 1, 900 000 ml @ 75 mls/hr IV . [id number] [facility] Rx#:[id number] Sodium Chloride 0.9% 1, 825 000 ml @ 75 mls/hr IV . [id number] [facility] Rx#:[id number] Intake, IV Titration 200 Amount Ertapenem 1 gm In Sodium 100 Chloride 0.9% 50 ml @ 100 mls/hr IVPB DAILY [facility] Rx #:[id number] Potassium Phosphate 10 100 mmol In Sodium Chloride 0 .9% 100 ml @ 50 mls/hr IV ONCE ONE Rx#:[id number] Tube Feeding 30 190 Other 500 Output: Urine 355 480 Stool 1200 600 Other: Voiding Method Indwelling Catheter Indwelling Catheter # Voids 1 - Exam 82-year-old male poor historian HEENT: Anicteric conjunctiva are pink and mildly crusty nasal mucosa grossly intact without significant lesions, there is no thrush but the oral cavity is very dry Neck: The neck is supple with no nuchal rigidity, without significant lymphadenopathy or thyromegaly. Lungs: There is symmetrical air entry. Scattered wheezes and basilar crackles are noted. Heart: Irregular with soft S4 no distinct murmur click or rub Abdomen: Positive bowel sounds soft and nontender without palpable masses or organomegaly. There was no guarding or rebound. PEG tube site is intact without erythema or drainage Extremities: The extremities have some minimal trace edema but no significant lesions are seen in the upper extremities. The lower extremities have evidence of the extensive skin lesion the bilateral lower extremities. There is a healing left hip incision which is without erythema crepitance or fluctuance. There is some erythema to the buttocks area. Neuro: Arousable, speech content is poor and inconsistent can poorly understandable he however does move arms and legs spontaneously Prior skin rash the chest and abdominal wall have resolved - Labs CBC & Chem 7: 05/23/17 05:15 05/23/17 05:15 Labs: Abnormal Lab Results - Last 24 Hours (Table) 05/23/17 05/23/17 Range/Units 05:15 05:15 WBC 21.7 H (3.8-10.6) k/uL RBC 3.07 L (4.30-5.90) m/uL Hgb 9.4 L D (13.0-17.5) gm/dL Hct 28.9 L (39.0-53.0) % RDW 16.9 H (11.5-15.5) % Neutrophils # 18.0 H (1.3-7.7) k/uL Monocytes # 1.1 H (0-1.0) k/uL Sodium 156 H (137-145) mmol/L Chloride 129 H* (98-107) mmol/L BUN 40 H (9-20) mg/dL Creatinine 1.38 H (0.66-1.25) mg/dL Glucose 119 H (74-99) mg/dL Calcium 6.9 L (8.4-10.2) mg/dL Phosphorus 2.2 L (2.5-4.5) mg/dL Total Protein 3.5 L (6.3-8.2) g/dL Albumin 1.4 L (3.5-5.0) g/dL Microbiology - Last 24 Hours (Table) 05/19/17 19:46 Blood Culture - Preliminary Blood No Growth after 72 hours 05/19/17 18:30 Blood Culture - Preliminary Blood No Growth after 72 hours Laboratory Results WBC 21.7 k/uL (3.8-10.6) H 05/23/17 05:15 RBC 3.07 m/uL (4.30-5.90) L 05/23/17 05:15 Hgb 9.4 gm/dL (13.0-17.5) L D 05/23/17 05:15 Hct 28.9 % (39.0-53.0) L 05/23/17 05:15 MCV 94.2 fL (80.0-100.0) 05/23/17 05:15 MCH 30.7 pg (25.0-35.0) 05/23/17 05:15 MCHC 32.6 g/dL (31.0-37.0) 05/23/17 05:15 RDW 16.9 % (11.5-15.5) H 05/23/17 05:15 Plt Count 228 k/uL (150-450) 05/23/17 05:15 Neutrophils % 83 % 05/23/17 05:15 Lymphocytes % 9 % 05/23/17 05:15 Monocytes % 5 % 05/23/17 05:15 Eosinophils % 1 % 05/23/17 05:15 Basophils % 0 % 05/23/17 05:15 Neutrophils # 18.0 k/uL (1.3-7.7) H 05/23/17 05:15 Lymphocytes # 1.9 k/uL (1.0-4.8) 05/23/17 05:15 Monocytes # 1.1 k/uL (0-1.0) H 05/23/17 05:15 Eosinophils # 0.2 k/uL (0-0.7) 05/23/17 05:15 Basophils # 0.1 k/uL (0-0.2) 05/23/17 05:15 Manual Slide Review Performed 05/23/17 05:15 Hypochromasia Moderate 05/23/17 05:15 Poikilocytosis Slight 05/23/17 05:15 Anisocytosis Slight 05/23/17 05:15 Macrocytosis Slight 05/22/17 04:23 PT 11.9 sec (9.0-12.0) 05/19/17 15:46 INR 1.2 (<1.2) H 05/19/17 15:46 APTT 27.9 sec (22.0-30.0) 05/19/17 15:46 Sodium 156 mmol/L (137-145) H 05/23/17 05:15 Potassium 4.3 mmol/L (3.5-5.1) 05/23/17 05:15 Chloride 129 mmol/L (98-107) H* 05/23/17 05:15 Carbon Dioxide 23 mmol/L (22-30) 05/23/17 05:15 Anion Gap 4 mmol/L 05/23/17 05:15 BUN 40 mg/dL (9-20) H 05/23/17 05:15 Creatinine 1.38 mg/dL (0.66-1.25) H 05/23/17 05:15 Est GFR (MDRD) Af Amer 60 (>60 ml/min/1.73 sqM) 05/23/17 05:15 Est GFR (MDRD) Non-Af 49 (>60 ml/min/1.73 sqM) 05/23/17 05:15 Glucose 119 mg/dL (74-99) H 05/23/17 05:15 POC Glucose (mg/dL) 123 mg/dL (75-99) H 05/22/17 05:44 POC Glu [employer] ID Indu Sharpe 05/22/17 05:44 Lactic Ac Sepsis Rflx Y 05/19/17 16:27 Plasma Lactic Acid Froy 1.7 mmol/L (0.7-2.0) 05/19/17 19:46 Calcium 6.9 mg/dL (8.4-10.2) L 05/23/17 05:15 Phosphorus 2.2 mg/dL (2.5-4.5) L 05/23/17 05:15 Magnesium 2.0 mg/dL (1.6-2.3) 05/23/17 05:15 Total Bilirubin 0.2 mg/dL (0.2-1.3) 05/23/17 05:15 AST 43 U/L (17-59) 05/23/17 05:15 ALT 30 U/L (21-72) 05/23/17 05:15 Alkaline Phosphatase 81 U/L (38-126) 05/23/17 05:15 Total Creatine Kinase 83 U/L (55-170) 05/20/17 04:16 CK-MB (CK-2) 1.9 ng/mL (0.0-2.4) 05/20/17 04:16 CK-MB (CK-2) Rel Index 2.3 05/20/17 04:16 Troponin I 0.031 ng/mL (0.000-0.034) 05/20/17 04:16 Total Protein 3.5 g/dL (6.3-8.2) L 05/23/17 05:15 Albumin 1.4 g/dL (3.5-5.0) L 05/23/17 05:15 Cortisol 24 ug/dL 05/19/17 15:46 Urine Color Yellow 05/19/17 17:05 Urine Appearance Cloudy (Clear) 05/19/17 17:05 Urine pH 5.5 (5.0-8.0) 05/19/17 17:05 Ur Specific B[place] 1.015 (1.001-1.035) 05/19/17 17:05 Urine Protein 1+ (Negative) H 05/19/17 17:05 Urine Glucose (UA) Negative (Negative) 05/19/17 17:05 Urine Ketones Negative (Negative) 05/19/17 17:05 Urine Blood Small (Negative) H 05/19/17 17:05 Urine Nitrite Negative (Negative) 05/19/17 17:05 Urine Bilirubin Negative (Negative) 05/19/17 17:05 Urine Urobilinogen 3.0 mg/dL (<2.0) 05/19/17 17:05 Ur Leukocyte Esterase Large (Negative) H 05/19/17 17:05 Urine RBC 35 /hpf (0-5) H 05/19/17 17:05 Urine WBC 179 /hpf (0-5) H 05/19/17 17:05 Urine WBC Clumps Few /hpf (None) H 05/02/17 19:18 Urine Bacteria Rare /hpf (None) H 05/19/17 17:05 Hyaline Casts 3 /lpf (0-2) H 05/19/17 17:05 Urine Mucus Rare /hpf (None) H 05/19/17 17:05 Urine Yeast (Budding) Occasional /hpf (None) H 05/19/17 17:05 Stool Occult Blood Positive (Negative) 05/21/17 09:30 C. difficile (EIA) Intrp Negative (Negative) 05/03/17 15:54 Blood Type O Positive 05/21/17 15:25 Blood Type Recheck No 05/21/17 15:25 Antibody Screen NEGATIVE 05/21/17 15:25 Crossmatch See Detail 05/21/17 15:25 Spec Expiration Date 05/24/2017 - 6 05/21/17 15:25 Microbiology 05/19/17 19:46 Blood Blood Culture - Preliminary No Growth after 72 hours 05/19/17 18:30 Blood Blood Culture - Preliminary No Growth after 72 hours 05/19/17 17:05 Urine,Catheterized Urine Culture - Final 05/04/17 23:29 Blood Blood Culture - Final No Growth after 144 hours 05/03/17 17:57 Blood Blood Culture - Final No Growth after 144 hours 05/03/17 03:00 Urine,Catheterized Urine Culture - Final Escherichia coli Assessment and Plan (1) Gram-negative sepsis with organ dysfunction Narrative/Plan: 82-year-old male transferred from extended care facility for alteration of his status. We'll request performed there was evidence of leukocytosis, acute renal failure, hyperkalemia. With this he was transferred to Hospital and is now received intervention and has been seen by nephrology. Because of his illness computed tomography scan of the abdomen and pelvis was performed showing evidence of the significant cecal dilatation and concerns to infection and abscess at that site. The patient has been seen by surgery and will plan colonoscopy when he is medically cleared. At the time of the consult fluid bolus was given since his computed tomography scan did not show evidence of heart failure. Antipyretics were given. The patient defervesced and his significant tachycardia and hypotension resolved. The patient has remained on selective care. His CODE STATUS is full, and apparently this has been addressed with the family and they do not yet understand the current ramifications of his illness. Ongoing discussion shall be held for more appropriate CODE STATUS. He has had a significant leukocytosis which is her sinning. There is evidence of urine culture with E. coli. His fever has resolved. Antibiotic therapy with Zosyn was initiated with concerns to the abdominal sepsis. We will also give coverage for his urinary tract infection based on prior cultures. He does have some crustiness to his eyes and Polysporin was given with improvement. His legs are wrapped continue the ulcer on the dorsum of the right foot. Local wound care as changed to medical Honey to try to debrided this better. Continue to wrap the legs. The dressing changes can be performed every other day. Assessment followed by surgery. Will need outpatient endoscopic evaluation if possible. There is been a significant leukocytosis and started to show improvement. The patient had had adequate treatment for his urinary infection but was still receiving some antibiotic therapy for the abdominal infection. The conversion to oral therapy seems to not be effective at this time. His leukocytosis had increased and developed a bit of a rash possibly from the antibiotic therapy. With antibiotic change the rash is resolved There is concerns to an aspiration event in the ertapenem should give us coverage also. Critical care is discussing the appropriateness of a DO NOT RESUSCITATE status which I strongly support at this time. Status: Acute (2) Acute renal failure Status: Acute (3) Hyperkalemia Status: Acute (4) UTI (urinary tract infection) Status: Acute
--- NOTE | 2017-05-23 21:23 | P.PN ---
Subjective Franco Hill is a 82-year-old right-handed white male who was initially admitted to [facility] on 05/02/2017 for evaluation of sepsis and weakness. Patient was seen in neurology consultation initially back on . He was found to have evidence at that time of diffuse metabolic encephalopathy and acute renal failure. He was also being treated for gram- negative sepsis with organ dysfunction. He has been seen by infectious disease and is followed by Dr. Kenney. The patient apparently was started on symptom feedings early this afternoon and had significant residuals averaging 65 200 mL. The patient also spiked a temperature this afternoon to 101 degrees Fahrenheit. He developed symptoms of hypotension which persisted. Patient was transferred to the intensive care unit where he is now being seen in neurology follow-up. The patient is resting comfortably. He does not appear to be in acute pain. He is able to follow some simple commands. His temperature is now back to normal and is noted to be orally at 97.9. The patient was started on 5 mics of Levophed due to the severe hypotension. His CODE STATUS as per family remains full CODE STATUS at this time. Due to the change in his level of function we have recommended a stat computed tomography scan of the brain to be done this evening to rule out any acute intracranial lesion or other abnormalities. We will also plan to get a follow-up EEG for the patient tomorrow morning. Case was discussed today at length with Dr. Kenney from infectious disease who agrees with our current treatment plan. The patient developed severe anemia today and did require 2 units of packed red cells for treatment. His hemoglobin had dropped to 7.3. Apparently later this evening he developed maroon-colored stools and did require 2 more units of packed red cells. Patient also this evening has developed a low-grade temperature of 100.8. We will await further recommendations from infectious disease. According to the ICU nurse the family has now made the patient DO NOT RESUSCITATE CODE STATUS. His was at bedside and she was updated on his overall poor prognosis and his current neurological condition. She is aware of his very guarded condition at this time. Apparently he has been opening his eyes but has very little verbal output when family is at bedside. He has shown some improvement this evening in terms of his overall mental status. He is opening his eyes and does say a few words. We will continue to follow his progress closely with infectious disease. We will continue close monitoring of this patient in the intensive care unit. His overall prognosis at this time remains very guarded. Objective - Vital Signs Vital signs: Vital Signs Temp 98.1 F 05/23/17 17:15 Pulse 126 H 05/23/17 19:15 Resp 27 H 05/23/17 19:15 BP 122/70 05/23/17 19:15 Pulse Ox 99 05/23/17 19:15 Intake & Output 05/23/17 05/23/17 05/24/17 06:59 18:59 06:59 Intake Total 855 1790 95 Output Total 1555 1080 35 Balance -700 710 60 Weight 68 kg 67.8 kg Intake: IV 825 900 75 Sodium Chloride 0.45% 1, 900 75 000 ml @ 75 mls/hr IV . [id number] [facility] Rx#:[id number] Sodium Chloride 0.9% 1, 825 000 ml @ 75 mls/hr IV . [id number] [facility] Rx#:[id number] Intake, IV Titration 200 Amount Ertapenem 1 gm In Sodium 100 Chloride 0.9% 50 ml @ 100 mls/hr IVPB DAILY [facility] Rx #:[id number] Potassium Phosphate 10 100 mmol In Sodium Chloride 0 .9% 100 ml @ 50 mls/hr IV ONCE ONE Rx#:[id number] Tube Feeding 30 190 20 Other 500 Output: Urine 355 480 35 Stool 1200 600 Other: Voiding Method Indwelling Catheter Indwelling Catheter # Voids 1 - Exam Physical examination: PHYSICAL EXAMINATION: Patient is resting comfortably in bed. Patient is somewhat lethargic but easily arousable. He does follow simple commands. His is at bedside. VITAL SIGNS: Blood pressure is [122/70]. Heart rate is [126]. Respiration is [27 ]. Temperature is [98.1]. HEENT: Head is atraumatic, neck is supple, there were no carotid bruits. CHEST: Lungs are clear to auscultation and percussion. CARDIAC: S1, S2 normal rate and rhythm. There is no murmur. ABDOMEN: Soft and nontender. Bowel sounds are present. EXTREMITIES: There is no pedal edema. Peripheral pulses are present. Neurological examination: Patient was transferred to the intensive care unit this evening. He is resting comfortably. He is alert and oriented 2. He is able to follow simple commands. He has generalized weakness. Deep tendon reflexes are 1+ and symmetric. Plantar responses flexor bilaterally. Coordination and gait cannot be assessed in this patient at this time. - Labs CBC & Chem 7: 05/23/17 05:15 05/23/17 05:15 Labs: Abnormal Lab Results - Last 24 Hours (Table) 05/23/17 05/23/17 Range/Units 05:15 05:15 WBC 21.7 H (3.8-10.6) k/uL RBC 3.07 L (4.30-5.90) m/uL Hgb 9.4 L D (13.0-17.5) gm/dL Hct 28.9 L (39.0-53.0) % RDW 16.9 H (11.5-15.5) % Neutrophils # 18.0 H (1.3-7.7) k/uL Monocytes # 1.1 H (0-1.0) k/uL Sodium 156 H (137-145) mmol/L Chloride 129 H* (98-107) mmol/L BUN 40 H (9-20) mg/dL Creatinine 1.38 H (0.66-1.25) mg/dL Glucose 119 H (74-99) mg/dL Calcium 6.9 L (8.4-10.2) mg/dL Phosphorus 2.2 L (2.5-4.5) mg/dL Total Protein 3.5 L (6.3-8.2) g/dL Albumin 1.4 L (3.5-5.0) g/dL Microbiology - Last 24 Hours (Table) 05/19/17 19:46 Blood Culture - Preliminary Blood No Growth after 72 hours 05/19/17 18:30 Blood Culture - Preliminary Blood No Growth after 72 hours Assessment and Plan (1) Acute metabolic encephalopathy Status: Acute Code(s): G93.41 - METABOLIC ENCEPHALOPATHY (2) Gram-negative sepsis with organ dysfunction Status: Acute Code(s): A41.50 - GRAM-NEGATIVE SEPSIS, UNSPECIFIED; R65.20 - SEVERE SEPSIS WITHOUT SEPTIC SHOCK (3) Acute renal failure Status: Acute Code(s): N17.9 - ACUTE KIDNEY FAILURE, UNSPECIFIED (4) Febrile illness Status: Acute Code(s): R50.9 - FEVER, UNSPECIFIED Plan: This patient is a 82-year-old male who was initially admitted to Hospital with symptoms of increasing weakness and sepsis. Today he was on the medical floor and developed residual retention of his tube feedings. He then spiked a temperature of 101F. He then showed signs of severe hypotension. He was transferred to the intensive care unit this evening where he is now been examined. Patient was started on 5 mics of Levophed due to the hypotension. We have arranged for a stat computed tomography scan of the brain to be done this evening for further evaluation. The patient is afebrile at this time. He is being followed closely by infectious disease and Dr. Kenney for gram- negative sepsis. He is on antibiotic coverage. The patient continues to have low-grade temperature today of 100.8. He is also received 4 units of packed red cells due to severe anemia. The family has now decided to make the patient DO NOT RESUSCITATE CODE STATUS due to his complex medical history. The patient remains somewhat encephalopathic at this time. was updated on his overall neurological status and current condition. She is aware of his guarded condition. We will continue close neurological follow-up of this patient in the intensive care unit. His mental status has shown some improvement today. He is slightly more awake and able to answer some questions today. His neurological findings are consistent with a diffuse metabolic encephalopathy. As noted his CODE STATUS remains no code as per the family wishes. His overall prognosis at this time remains very guarded. Case was discussed today at length with the patient's and son at bedside. All of their questions were answered. They are both aware of his guarded condition. We will continue close neurological follow-up of this patient in the intensive care unit.
[2017-05-24 05:08] LABS: Anisocytosis Slight; CH 30.9; CHCM 32.6; HDW 3.58; HGB 8.7 gm/dL (13.0-17.5); Hypochromasia Slight; MCHC 32.3 g/dL (31.0-37.0); Macrocytosis Slight; Mean Platelet Volume 9.8; Poikilocytosis Slight; RBC 2.81 m/uL (4.30-5.90); RDW 18.2 % (11.5-15.5); WBC (Perox) 24.14
[2017-05-24 05:15] LABS: ALT 33 U/L (21-72); AST 49 U/L (17-59); Alkaline Phosphatase 105 U/L (38-126); Anion Gap 4 mmol/L; Blood Urea Nitrogen 39 mg/dL (9-20); Calcium 7.3 mg/dL (8.4-10.2); Carbon Dioxide 22 mmol/L (22-30); Glucose 96 mg/dL (74-99); Magnesium 1.9 mg/dL (1.6-2.3); Non-African American GFR(MDRD) 58 (>60 ml/min/1.73 sqM); Phosphorous 2.3 mg/dL (2.5-4.5); Potassium 4.4 mmol/L (3.5-5.1); Sodium 146 mmol/L (137-145); Total Bilirubin 0.3 mg/dL (0.2-1.3); Total Protein 3.9 g/dL (6.3-8.2)
[2017-05-24 05:18] LABS: Chloride 120 mmol/L (98-107)
[2017-05-24 05:53] LABS: Add Differential Manual Differential
[2017-05-24 05:55] LABS: Manual Review Performed; Nucleated Red Blood Cells 1 /100 WBC (0-0); Polychromasia Present; Total Cells Counted 100; WBC 23.5 k/uL (3.8-10.6)
[2017-05-24] MEDS ORDERED: Magnesium Replacement Protocol 1 EACH MISC MISCELLANE PRN (06:22)
[2017-05-24] MEDS ORDERED: SODIUM PHOSPHATE 10 MMOL in SODIUM CHLORIDE 0.9% 100 ML IVPB ONE (06:22)
[2017-05-24] MEDS ORDERED: Phosphorus Replacement Protoco 1 EACH MISC MISCELLANE PRN ×2 (06:22→06:37)
[2017-05-24] MEDS ORDERED: POTASSIUM PHOSPHATE 10 MMOL in SODIUM CHLORIDE 0.9% 100 ML IV ONE (06:37)
[2017-05-24] MEDS: HYDROcodone/APAP 15 ML SOLUTION PEG/G-TUBE PRN ×2 (06:38→12:11)
[2017-05-24] MEDS: ENOXAPARIN 40 MG/0.4 ML SYRINGE SQ SCH (07:09)
[2017-05-24] MEDS: MAGNESIUM SULFATE-D5W PMX 1 GM in DEXTROSE/WATER 1 100ML.BAG IVPB SCH ×2 (07:10→09:22)
--- NOTE | 2017-05-24 08:00 | P.PN ---
Subjective Principal diagnosis: Anemia with continuing care. Impression an 82-year-old white male centimeter for sepsis and renal failure. The patient is essentially had significant chris course after this. He is currently on antibiotic treatment but mentally has becoming waxing and waning as far as his mentation. Speech tends to be slurred but at times, he is able to answer appropriately. He does not complain of any overt pain today. Objective - Vital Signs Vital signs: Vital Signs Temp 98.4 F 05/24/17 03:30 Pulse 122 H 05/24/17 07:00 Resp 26 H 05/24/17 07:00 BP 141/94 05/24/17 07:00 Pulse Ox 100 05/24/17 07:00 Intake & Output 05/23/17 05/24/17 05/24/17 18:59 06:59 18:59 Intake Total 1790 935 75 Output Total 1080 680 20 Balance 710 255 55 Weight 67.8 kg 68 kg Intake: IV 900 825 75 Sodium Chloride 0.45% 1, 900 825 75 000 ml @ 75 mls/hr IV . [id number] [facility] Rx#:[id number] Intake, IV Titration 200 Amount Ertapenem 1 gm In Sodium 100 Chloride 0.9% 50 ml @ 100 mls/hr IVPB DAILY [facility] Rx #:[id number] Potassium Phosphate 10 100 mmol In Sodium Chloride 0 .9% 100 ml @ 50 mls/hr IV ONCE ONE Rx#:[id number] Tube Feeding 190 110 Other 500 Output: Urine 480 380 20 Stool 600 300 Other: Voiding Method Indwelling Catheter Indwelling Catheter # Voids 1 1 - Constitutional General appearance: Present: average body habitus - EENT Eyes: Absent: abnormal pupil - Respiratory Respiratory: bilateral: diminished - Cardiovascular Heart sounds: normal: S1, S2 - Gastrointestinal General gastrointestinal: Absent: tenderness - Musculoskeletal Musculoskeletal: Present: generalized weakness - Psychiatric Psychiatric: Absent: A&O x's 3, intact judgment & insight - Labs CBC & Chem 7: 05/24/17 04:50 05/24/17 04:50 Labs: Abnormal Lab Results - Last 24 Hours (Table) 05/24/17 05/24/17 Range/Units 04:50 04:50 WBC 23.5 H (3.8-10.6) k/uL RBC 2.81 L (4.30-5.90) m/uL Hgb 8.7 L (13.0-17.5) gm/dL Hct 27.0 L (39.0-53.0) % RDW 18.2 H (11.5-15.5) % Neutrophils # (Manual) 20.68 H (1.3-7.7) k/uL Nucleated RBCs 1 H (0-0) /100 WBC Sodium 146 H (137-145) mmol/L Chloride 120 H* (98-107) mmol/L BUN 39 H (9-20) mg/dL Calcium 7.3 L (8.4-10.2) mg/dL Phosphorus 2.3 L (2.5-4.5) mg/dL Total Protein 3.9 L (6.3-8.2) g/dL Albumin 1.6 L (3.5-5.0) g/dL Microbiology - Last 24 Hours (Table) 05/19/17 19:46 Blood Culture - Preliminary Blood No Growth after 96 hours 05/19/17 18:30 Blood Culture - Preliminary Blood No Growth after 96 hours Assessment and Plan (1) Acute renal failure Status: Acute (2) Gram-negative sepsis with organ dysfunction Status: Acute (3) CVA (cerebral vascular accident) Status: Acute Plan: Appreciate consultants input including pulmonology, neurology. Continued anemia. Surgical input has been appreciated. Continue feeding tube. Electrolytes have been improving. Check CBC and CMP in a.m. Dr. Hunt's group will be covering for the weekend. Time with Patient: Greater than 30
[2017-05-24] MEDS: IPRATROPIUM-ALBUTEROL 3 ML NEB INHALATION SCH ×3 (09:09→20:18)
[2017-05-24] MEDS: BUDESONIDE 0.5 MG/2 ML NEBU INHALATION SCH ×2 (09:09→20:18)
[2017-05-24] MEDS: METOPROLOL TARTRATE 50 MG TAB PO SCH ×3 (09:23→21:17)
[2017-05-24] MEDS: PANTOPRAZOLE 40 MG/10 ML VIAL IVP SCH (09:23)
[2017-05-24] MEDS: AMMONIUM LACTATE 12% LOTION 225 GM BTL TOPICAL SCH ×2 (09:23→21:16)
[2017-05-24] MEDS: BACITRACIN/POLYMYX 500-10,000 UNIT/GM OPHTH OINT 3.5 GM TUBE BOTH EYES SCH ×4 (09:23→21:16)
[2017-05-24] MEDS: SODIUM CHLORIDE 0.45% 1,000 ML IV SCH (09:24)
[2017-05-24] MEDS: LORATADINE 10 MG TAB PO SCH (09:24)
[2017-05-24] MEDS: SUCRALFATE 1 GM TAB PO SCH ×4 (09:24→21:19)
[2017-05-24] MEDS: ERTAPENEM 1 GM in SODIUM CHLORIDE 0.9% 50 ML IVPB SCH (09:27)
[2017-05-24] MEDS: SODIUM CHLORIDE 0.9% 1,000 ML IV SCH ×2 (10:34→10:49)
--- NOTE | 2017-05-24 14:11 | CDI ---
In responding to this query, please exercise your independent professional judgment. The [facility] Coding Staff and Clinical Documentation Specialists appreciate your assistance in clarifying documentation, maintaining compliance with coding guidelines, accurately documenting patients condition and capturing severity of illness. The fact that a question is asked does not imply that any particular answer is desired or expected. Communication forms are a method of clarifying documentation and are not made part of the Legal Health Record. Thank you in advance for your clarification. Last Revision, July 2015 July Swan [address] [facility] [place] [address] Documentation Clarification Form Date: 05/24/2017 1:51:00 PM From: Carol Ann Nieves CCS, CCDS Admit Date: 05/02/2017 7:07:00 PM Patient Name: Franco Hill Visit Number: [id number] Discharge Date: Dr. Prudencio Valverde: A diagnosis of anemia lacks specificity to accurately reflect your patients severity of condition and clarification is needed. Patient history/risk factors: Patient has PEG tube for recurrent aspiration. History of CVA, TIA, GERD, Hypertension. Clinical Indicators: Hemoglobin: 12.2 - 7.3 Hematocrit: 38.3 - 23.4 Treatment: 4 units PRBCs, H/H monitoring. ICU. IV antibiotics, IV MagSulfate, IV K, INH, IV fluids, O2. In order to capture the severity of condition, please clarify the type of anemia and etiology if known: Acute blood loss anemia Acute on chronic blood loss anemia Chronic blood loss anemia Iron deficiency anemia Hemolytic anemia Drug induced anemia Nutritional anemia Anemia of chronic kidney disease Unable to determine Other, please specify Please document in your progress notes and discharge summary in order to capture severity of illness and risk of mortality. Include clinical findings that support your diagnosis. FYI: Press F11 to launch patient chart. MARCELO
--- NOTE | 2017-05-24 14:55 | EEG ---
ELECTROENCEPHALOGRAM REPORT DATE OF SERVICE: 05/20/2017. INDICATION FOR EXAMINATION: This patient is an 82-year-old male being evaluated for sepsis and worsening altered mental status. AGE: 82. EEG FINDINGS: A routine 21-channel awake digital EEG recording was accomplished utilizing the 10 - 20 international system with bipolar and referential montages. The background activity in the most alert resting state consists of a low to medium amplitude, poorly developed and poorly sustained 6 Hz activity over the posterior head regions. This posterior rhythm attenuates to eye opening. There is a small amount of low amplitude 18 - 20 Hz beta activity seen maximally over the anterior head regions. Muscle and movement artifact was observed on a few occasions during the tracing. Hyperventilation was not performed. Photic stimulation and flash frequencies of 2 - 30 Hz produced a minimal occipital driving response. The main feature of this tracing is the occurrence on several occasional of short epochs of 4 to 5 seconds of sharp wave activity. No clinical signs were noted during these events. IMPRESSION: This EEG is moderately abnormal in a diffuse fashion due to slowing of the EEG background. The EEG failed to reveal any focal, lateralized, or epileptiform abnormalities. If clinically indicated, a followup EEG is recommended. Clinical correlation is recommended. MMODL / IJN: [id number] /
--- NOTE | 2017-05-24 17:45 | P.PN ---
Subjective 05/08/17- This is an 82-year-old male patient who came into the emergency department on 05/02/2017 from an extended care facility. Patient was noted to have a potassium of 6.4 at the extended care facility and therefore they sent him over. The patient did not have any further complaints and he has intermittent confusion which is his baseline. EKG performed in the emergency room did show sinus rhythm with occasional PVCs, patient had no ST segment elevation or depression or T-wave abnormalities. The patient was put on lactulose. Hypertension is also being worked up for possible rectal mass and will undergo colonoscopy when stable with Dr. Piña. All labs and reports have been reviewed. Patient is being seen and examined today on the sixth floor for pulmonary services related to progression of shortness of breath over the last few days. He has had a cough however denies any congestion. Nursing staff has denied any sputum production. He is alert and oriented 1 with intermittent confusion. Has been afebrile. Currently is on 3 L of supplemental oxygen via nasal cannula. It is unclear if the patient utilized oxygen in the extended care facility setting. Patient is also on a mechanical soft diet with aspiration precautions. 05/09/17- this patient is being evaluated and examined and seen on rounds today. All labs and reports were reviewed. The patient hyperkalemia has improved. The white blood cell count has come down to 12.8. Patient was noted to have increased lethargy and decreased cognition yesterday afternoon therefore a neurology consult was initiated. Patient is going for a CT of the brain as well as an EEG today. Patient's speech is noted to be slightly slurred and mumbled. Overnight he was noted to refuse care, had increase in agitation, and was refusing food and fluids. and primary care were updated. 05/10/17- this patient is being evaluated exam and seen today on the selective care unit. All labs and reports have been reviewed. Patient appears more awake today than previously. Patient did undergo a CT of the brain and EEG yesterday. Neurology and nephrology is on consult. Patient's prognosis is guarded and he has multiple comorbidities. Upon examination the patient's resting up in bed on room air states he occasionally has shortness of breath with exertion. He denies any cough or congestion at this time. Discharge planning is in process and appears the patient will go back to extended care facility when discharged. 05/11/17- patient is being seen in evaluated and examined today on the fifth floor. Patient is known to be slightly tired however is easily awoken. Currently he is resting up in bed on room air. Patient noticed to have a faint light red flat erythema rash to his right lateral chest. He denies any itching or pain. The area is small and diffuse. We will continue to monitor this. He does have Lotrisone cream for the area. On examination he denies any shortness of breath cough or congestion. Family at bedside updated on plan of care. 05/12/17- patient is being seen examined and evaluated today on the floor. The patient continues to be tired however is easily aroused upon examination. No further progression is noted of his rash to the right lateral chest. On examination patient's resting up in bed on room air. Shortness of breath as noted with exertion. Intermittent cough. He is afebrile, no overnight events. 05/13/17- patient is being seen examined and evaluated today on the floor. On examination the patient is resting in bed on room air, continues with shortness of breath on exertion. According to the nursing staff during breakfast the patient was coughing and choking and has dysphagia diet. Continue swallow evaluation with speech therapy has been ordered. 05/14/17-05/19/[address] Valverde's dictations 05/20/17- patient is being seen examined and evaluated today in the intensive care unit. Currently the patient is resting up in bed on 2 L of supplemental oxygen via nasal cannula. Patient continues to be tachycardic and oxygen dependent. Patient did undergo a procedure for PEG tube and is currently tolerating tube feeds. Chest x-ray has been reviewed from this morning and does show a correlation for CHF, underlying pneumonia not excluded. Upon examination the patient's vasopressors are on hold. We are trying to wean the patient off of pressors at this time. 05/21/17- patient is being seen examined and evaluated today in the intensive care unit. Patient has been noted to have significant tachycardia with episodes of hypotension, he was noted to have increased bowel movements that were loose and dark. Occult blood was sent to lab and came back positive. The patient had FMF in place. Surgical has been updated. Hemoglobin noted to drop from 8.6 this morning now down to 7.3. Orders given for 2 units of packed red blood cells as well as consult interventional radiology for PICC line insertion. chest x-ray from this afternoon revealed improved variation in both lung bases. 05/22/17- patient seen and examined in the ICU remains hypertensive but intermittent continue to have episodes of tachycardia the beta blockers are being used cautiously currently patient heart rate is about 150-160 and appears to be sinus tachycardia Cardizem drip is not working so is being discontinued patient is on IV Lopressor has been on by mouth Lopressor as well he has been transfused with packed RBC indexes of bleeding that has been seen overnight has appears to settle down patient slightly more awake now family is present at bedside care plan discussed with them the advice to proceed with a DO NOT RESUSCITATE CODE STATUS, patient is status post PICC line placement 05/23/17- patient is being seen examined and evaluated today in the intensive care unit. Patient has received a total of 4 units of packed red blood cells. Hemoglobin is noted to drop from 11.8 to 9.4 today. Surgery is also on consult , however he has a high risk candidate. His fecal management system is in place and the stools look less maroon today than previous. He continues to have intermittent confusion. His sodium was noted to be 155 today, as well as a chloride of 129. We have increased his free water flushes via PEG tube to 250 ML's every 6. Upon examination the patient's resting up in bed on 3 L of supplemental oxygen via nasal cannula. He continues to have a dry cough. Currently he is afebrile, no further complaints. The patient was seen again today 05/24/2017 in follow-up in the intensive care unit. We are covering for Dr. Valverde today. The patient remains a poor historian and mainly nonverbal. He is maintaining good O2 saturations in the mid to upper 90s on 2 L/m per nasal cannula. He's been afebrile. Somewhat tachycardic with heart rate in the 110-120's. He is status post 4 units of packed red blood cells this admission. His current hemoglobin is 8.7. He has a FMF as in place with some dark tarry stools. Surgical services are on the case. Repeat blood cultures reveal no growth to date. White count remains high at 23.5. Sodium is improved to 146. Creatinine 1.20. Objective - Vital Signs Vital signs: Vital Signs Temp 98.4 F 05/24/17 08:00 Pulse 118 H 05/24/17 12:39 Resp 33 H 05/24/17 10:00 BP 139/74 05/24/17 10:00 Pulse Ox 97 05/24/17 10:00 Intake & Output 05/23/17 05/24/17 05/24/17 18:59 06:59 18:59 Intake Total 1790 935 360 Output Total 1080 680 260 Balance 710 255 100 Weight 67.8 kg 68 kg 68 kg Intake: IV 900 825 300 Sodium Chloride 0.45% 1, 900 825 300 000 ml @ 75 mls/hr IV . [id number] [facility] Rx#:[id number] Intake, IV Titration 200 Amount Ertapenem 1 gm In Sodium 100 Chloride 0.9% 50 ml @ 100 mls/hr IVPB DAILY [facility] Rx #:[id number] Potassium Phosphate 10 100 mmol In Sodium Chloride 0 .9% 100 ml @ 50 mls/hr IV ONCE ONE Rx#:[id number] Tube Feeding 190 110 60 Other 500 Output: Urine 480 380 160 Stool 600 300 100 Other: Voiding Method Indwelling Catheter Indwelling Catheter Indwelling Catheter # Voids 1 1 1 - Exam GENERAL EXAM: Arousable, confused. HEAD: Normocephalic. EYES: Normal reaction of pupils, equal size. NOSE: Clear with pink turbinates. THROAT: No erythema or exudates. NECK: No masses, no JVD. CHEST: No chest wall deformity. LUNGS: Equal air entry with no crackles, wheeze, rhonchi or dullness. CVS: S1 and S2 normal with no audible murmurs, regular rhythm. ABDOMEN: No hepatosplenomegaly, normal bowel sounds, no guarding or rigidity. PEG tube exit site clean dry. FMS in place. SKIN: Multiple open skin wounds and tears. Extremities: There is no significant peripheral edema. Changes of chronic venous stasis. Dressings to lower extremities. Peripheral pulses are intact. - Labs CBC & Chem 7: 05/24/17 04:50 05/24/17 04:50 Labs: Abnormal Lab Results - Last 24 Hours (Table) 05/24/17 05/24/17 Range/Units 04:50 04:50 WBC 23.5 H (3.8-10.6) k/uL RBC 2.81 L (4.30-5.90) m/uL Hgb 8.7 L (13.0-17.5) gm/dL Hct 27.0 L (39.0-53.0) % RDW 18.2 H (11.5-15.5) % Neutrophils # (Manual) 20.68 H (1.3-7.7) k/uL Nucleated RBCs 1 H (0-0) /100 WBC Sodium 146 H (137-145) mmol/L Chloride 120 H* (98-107) mmol/L BUN 39 H (9-20) mg/dL Calcium 7.3 L (8.4-10.2) mg/dL Phosphorus 2.3 L (2.5-4.5) mg/dL Total Protein 3.9 L (6.3-8.2) g/dL Albumin 1.6 L (3.5-5.0) g/dL Microbiology - Last 24 Hours (Table) 05/19/17 19:46 Blood Culture - Preliminary Blood No Growth after 96 hours 05/19/17 18:30 Blood Culture - Preliminary Blood No Growth after 96 hours Assessment and Plan Plan: Assessment Supraventricular tachycardia likely related to the intravascular water depletion dehydration and anemia with ongoing intermittent GI loss Recurrent intermittent aspiration with episodes of silent aspiration patient is status post PEG tube placement Urinary tract infection, culture positive for gram negatives bacilli and E. coli , which appears to be ESBL, IVS adjust antibiotics Sepsis with fever, gram-negative Hyperkalemia, improved Acute renal failure Urinary tract infection, culture positive for gram negatives bacilli and E. coli Hypernatremia likely related to decreased oral intake Probable rectal mass, currently being worked up Diarrhea History of CVA Hypotension, recovered off pressors. Plan: The patient was seen and evaluated by Dr. Loza. He is currently stable from the pulmonary standpoint. He has been off pressors and more hemodynamically stable. His hemoglobin continues to drift down. He continues with some black tarry stools. Surgical services is on the case as well. We'll monitor him here in the intensive care unit another 24 hours. Continue to monitor hemoglobin. His overall prognosis remains quite guarded and poor based on the above-mentioned multiple comorbidities. He is a DO NOT RESUSCITATE/DO NOT INTUBATE CODE STATUS. We'll continue to follow.
--- NOTE | 2017-05-24 19:44 | P.PN ---
Subjective Franco Hill is a 82-year-old right-handed white male who was initially admitted to [facility] on 05/02/2017 for evaluation of sepsis and weakness. Patient was seen in neurology consultation initially back on . He was found to have evidence at that time of diffuse metabolic encephalopathy and acute renal failure. He was also being treated for gram- negative sepsis with organ dysfunction. He has been seen by infectious disease and is followed by Dr. Kenney. The patient apparently was started on symptom feedings early this afternoon and had significant residuals averaging 65 200 mL. The patient also spiked a temperature this afternoon to 101 degrees Fahrenheit. He developed symptoms of hypotension which persisted. Patient was transferred to the intensive care unit where he is now being seen in neurology follow-up. The patient is resting comfortably. He does not appear to be in acute pain. He is able to follow some simple commands. His temperature is now back to normal and is noted to be orally at 97.9. The patient was started on 5 mics of Levophed due to the severe hypotension. His CODE STATUS as per family remains full CODE STATUS at this time. Due to the change in his level of function we have recommended a stat computed tomography scan of the brain to be done this evening to rule out any acute intracranial lesion or other abnormalities. We will also plan to get a follow-up EEG for the patient tomorrow morning. Case was discussed today at length with Dr. Kenney from infectious disease who agrees with our current treatment plan. The patient developed severe anemia today and did require 2 units of packed red cells for treatment. His hemoglobin had dropped to 7.3. Apparently later this evening he developed maroon-colored stools and did require 2 more units of packed red cells. Patient also this evening has developed a low-grade temperature of 100.8. We will await further recommendations from infectious disease. According to the ICU nurse the family has now made the patient DO NOT RESUSCITATE CODE STATUS. His was at bedside and she was updated on his overall poor prognosis and his current neurological condition. She is aware of his very guarded condition at this time. Apparently he has been opening his eyes but has very little verbal output when family is at bedside. He has shown some improvement this evening in terms of his overall mental status. He is opening his eyes and does say a few words. According to the ICU nursing staff he was more alert this morning. Towards the end of the day he becomes more lethargic. He does easily arouses evening in the ICU. He is following only simple commands. He has remained relatively stable today in terms of his hemodynamics. He continues to remain slightly tachycardic and his current hemoglobin is 8.7. He has had some dark tarry stools today as well. Surgical services are on his case. So far his blood cultures have remained negative. His white count remains elevated at 23.5 today. We will continue to follow his progress closely with infectious disease. We will continue close monitoring of this patient in the intensive care unit. His overall prognosis at this time remains very guarded. Objective - Vital Signs Vital signs: Vital Signs Temp 99.4 F 05/24/17 17:00 Pulse 102 H 05/24/17 18:00 Resp 15 05/24/17 18:00 BP 111/48 05/24/17 18:00 Pulse Ox 100 05/24/17 18:00 Intake & Output 05/23/17 05/24/17 05/24/17 18:59 06:59 18:59 Intake Total 1790 935 960 Output Total 1080 680 555 Balance 710 255 405 Weight 67.8 kg 68 kg 68 kg Intake: IV 900 825 900 Sodium Chloride 0.45% 1, 900 825 900 000 ml @ 75 mls/hr IV . [id number] [facility] OF [facility] Rx#:[id number] Intake, IV Titration 200 Amount Ertapenem 1 gm In Sodium 100 Chloride 0.9% 50 ml @ 100 mls/hr IVPB DAILY [facility] Rx #:[id number] Potassium Phosphate 10 100 mmol In Sodium Chloride 0 .9% 100 ml @ 50 mls/hr IV ONCE ONE Rx#:[id number] Tube Feeding 190 110 60 Other 500 Output: Urine 480 380 455 Stool 600 300 100 Other: Voiding Method Indwelling Catheter Indwelling Catheter Indwelling Catheter # Voids 1 1 1 - Exam Physical examination: PHYSICAL EXAMINATION: Patient is resting comfortably in bed. Patient is somewhat lethargic but easily arousable. He does follow simple commands. His is at bedside. VITAL SIGNS: Blood pressure is [111/48]. Heart rate is [102]. Respiration is [15 ]. Temperature is [99.4]. HEENT: Head is atraumatic, neck is supple, there were no carotid bruits. CHEST: Lungs are clear to auscultation and percussion. CARDIAC: S1, S2 normal rate and rhythm. There is no murmur. ABDOMEN: Soft and nontender. Bowel sounds are present. EXTREMITIES: There is no pedal edema. Peripheral pulses are present. Neurological examination: Patient was transferred to the intensive care unit this evening. He is resting comfortably. He is alert and oriented 2. He is able to follow simple commands. He has generalized weakness. Deep tendon reflexes are 1+ and symmetric. Plantar responses flexor bilaterally. Coordination and gait cannot be assessed in this patient at this time. - Labs CBC & Chem 7: 05/24/17 04:50 05/24/17 04:50 Labs: Abnormal Lab Results - Last 24 Hours (Table) 05/24/17 05/24/17 Range/Units 04:50 04:50 WBC 23.5 H (3.8-10.6) k/uL RBC 2.81 L (4.30-5.90) m/uL Hgb 8.7 L (13.0-17.5) gm/dL Hct 27.0 L (39.0-53.0) % RDW 18.2 H (11.5-15.5) % Neutrophils # (Manual) 20.68 H (1.3-7.7) k/uL Nucleated RBCs 1 H (0-0) /100 WBC Sodium 146 H (137-145) mmol/L Chloride 120 H* (98-107) mmol/L BUN 39 H (9-20) mg/dL Calcium 7.3 L (8.4-10.2) mg/dL Phosphorus 2.3 L (2.5-4.5) mg/dL Total Protein 3.9 L (6.3-8.2) g/dL Albumin 1.6 L (3.5-5.0) g/dL Microbiology - Last 24 Hours (Table) 05/19/17 19:46 Blood Culture - Preliminary Blood No Growth after 96 hours 05/19/17 18:30 Blood Culture - Preliminary Blood No Growth after 96 hours Assessment and Plan (1) Acute metabolic encephalopathy Status: Acute Code(s): G93.41 - METABOLIC ENCEPHALOPATHY (2) Gram-negative sepsis with organ dysfunction Status: Acute Code(s): A41.50 - GRAM-NEGATIVE SEPSIS, UNSPECIFIED; R65.20 - SEVERE SEPSIS WITHOUT SEPTIC SHOCK (3) Acute renal failure Status: Acute Code(s): N17.9 - ACUTE KIDNEY FAILURE, UNSPECIFIED (4) Febrile illness Status: Acute Code(s): R50.9 - FEVER, UNSPECIFIED Plan: This patient is a 82-year-old male who was initially admitted to Hospital with symptoms of increasing weakness and sepsis. Today he was on the medical floor and developed residual retention of his tube feedings. He then spiked a temperature of 101F. He then showed signs of severe hypotension. He was transferred to the intensive care unit this evening where he is now been examined. Patient was started on 5 mics of Levophed due to the hypotension. We have arranged for a stat computed tomography scan of the brain to be done this evening for further evaluation. The patient is afebrile at this time. He is being followed closely by infectious disease and Dr. Kenney for gram- negative sepsis. He is on antibiotic coverage. The patient continues to have low-grade temperature today of 100.8. He is also received 4 units of packed red cells due to severe anemia. The family has now decided to make the patient DO NOT RESUSCITATE CODE STATUS due to his complex medical history. The patient remains somewhat encephalopathic at this time. was updated on his overall neurological status and current condition. She is aware of his guarded condition. We will continue close neurological follow-up of this patient in the intensive care unit. His mental status has shown some improvement today. He is slightly more awake and able to answer some questions today. His neurological findings are consistent with a diffuse metabolic encephalopathy. As noted his CODE STATUS remains no code as per the family wishes. His overall prognosis at this time remains very guarded. Case was discussed yesterday at length with the patient's and son at bedside. All of their questions were answered. They are both aware of his guarded condition. The patient remains somewhat obtunded this evening. He does follow some simple commands. We are waiting further recommendations from infectious disease in regards to his sepsis. He does have underlying urinary tract infection with positive cultures for gram-negative bacilli in the E. coli. He is being followed closely by infectious disease. He is currently receiving antibiotics which include Polysporin and ertapenem. He remains afebrile this evening. We will plan to get a repeat EEG for this patient tomorrow. His overall prognosis at this time remains very guarded. We will continue close neurological follow- up of this patient in the intensive care unit.
[2017-05-25 04:48] LABS: Anisocytosis Slight; CH 29.5; CHCM 31.1; HCT 25.1 % (39.0-53.0); HDW 3.36; Hypochromasia Moderate; MCH 30.8 pg (25.0-35.0); MCV 96.2 fL (80.0-100.0); Macrocytosis Slight; Mean Platelet Volume 9.2; RBC 2.61 m/uL (4.30-5.90); RDW 17.8 % (11.5-15.5); WBC 19.7 k/uL (3.8-10.6)
[2017-05-25 04:58] LABS: ALT 29 U/L (21-72); AST 61 U/L (17-59); Alkaline Phosphatase 125 U/L (38-126); Anion Gap 3 mmol/L; Blood Urea Nitrogen 41 mg/dL (9-20); Calcium 7.1 mg/dL (8.4-10.2); Carbon Dioxide 23 mmol/L (22-30); Glucose 105 mg/dL (74-99); Magnesium 2.3 mg/dL (1.6-2.3); Non-African American GFR(MDRD) 53 (>60 ml/min/1.73 sqM); Potassium 4.5 mmol/L (3.5-5.1); Sodium 147 mmol/L (137-145); Total Bilirubin 0.4 mg/dL (0.2-1.3); Total Protein 4.1 g/dL (6.3-8.2)
[2017-05-25 05:06] LABS: Chloride 121 mmol/L (98-107)
[2017-05-25] MEDS: ENOXAPARIN 40 MG/0.4 ML SYRINGE SQ SCH (06:00)
[2017-05-25] MEDS: HYDROcodone/APAP 15 ML SOLUTION PEG/G-TUBE PRN (06:55)
[2017-05-25 08:05] LABS: Glucose,Whole Blood 130 mg/dL (75-99)
[2017-05-25] MEDS: METOPROLOL TARTRATE 50 MG TAB PO SCH ×3 (08:10→21:30)
[2017-05-25] MEDS: PANTOPRAZOLE 40 MG/10 ML VIAL IVP SCH (08:10)
[2017-05-25] MEDS: SUCRALFATE 1 GM TAB PO SCH ×4 (08:10→21:30)
[2017-05-25] MEDS: LORATADINE 10 MG TAB PO SCH (08:10)
[2017-05-25] MEDS: ERTAPENEM 1 GM in SODIUM CHLORIDE 0.9% 50 ML IVPB SCH (08:10)
[2017-05-25] MEDS: BACITRACIN/POLYMYX 500-10,000 UNIT/GM OPHTH OINT 3.5 GM TUBE BOTH EYES SCH ×4 (08:10→21:30)
[2017-05-25] MEDS: AMMONIUM LACTATE 12% LOTION 225 GM BTL TOPICAL SCH ×2 (08:11→20:26)
[2017-05-25] MEDS: IPRATROPIUM-ALBUTEROL 3 ML NEB INHALATION SCH ×3 (08:56→20:27)
[2017-05-25] MEDS: BUDESONIDE 0.5 MG/2 ML NEBU INHALATION SCH ×2 (08:56→20:27)
--- NOTE | 2017-05-25 09:50 | P.PN ---
Subjective 05/08/17- This is an 82-year-old male patient who came into the emergency department on 05/02/2017 from an extended care facility. Patient was noted to have a potassium of 6.4 at the extended care facility and therefore they sent him over. The patient did not have any further complaints and he has intermittent confusion which is his baseline. EKG performed in the emergency room did show sinus rhythm with occasional PVCs, patient had no ST segment elevation or depression or T-wave abnormalities. The patient was put on lactulose. Hypertension is also being worked up for possible rectal mass and will undergo colonoscopy when stable with Dr. Piña. All labs and reports have been reviewed. Patient is being seen and examined today on the sixth floor for pulmonary services related to progression of shortness of breath over the last few days. He has had a cough however denies any congestion. Nursing staff has denied any sputum production. He is alert and oriented 1 with intermittent confusion. Has been afebrile. Currently is on 3 L of supplemental oxygen via nasal cannula. It is unclear if the patient utilized oxygen in the extended care facility setting. Patient is also on a mechanical soft diet with aspiration precautions. 05/09/17- this patient is being evaluated and examined and seen on rounds today. All labs and reports were reviewed. The patient hyperkalemia has improved. The white blood cell count has come down to 12.8. Patient was noted to have increased lethargy and decreased cognition yesterday afternoon therefore a neurology consult was initiated. Patient is going for a CT of the brain as well as an EEG today. Patient's speech is noted to be slightly slurred and mumbled. Overnight he was noted to refuse care, had increase in agitation, and was refusing food and fluids. and primary care were updated. 05/10/17- this patient is being evaluated exam and seen today on the selective care unit. All labs and reports have been reviewed. Patient appears more awake today than previously. Patient did undergo a CT of the brain and EEG yesterday. Neurology and nephrology is on consult. Patient's prognosis is guarded and he has multiple comorbidities. Upon examination the patient's resting up in bed on room air states he occasionally has shortness of breath with exertion. He denies any cough or congestion at this time. Discharge planning is in process and appears the patient will go back to extended care facility when discharged. 05/11/17- patient is being seen in evaluated and examined today on the fifth floor. Patient is known to be slightly tired however is easily awoken. Currently he is resting up in bed on room air. Patient noticed to have a faint light red flat erythema rash to his right lateral chest. He denies any itching or pain. The area is small and diffuse. We will continue to monitor this. He does have Lotrisone cream for the area. On examination he denies any shortness of breath cough or congestion. Family at bedside updated on plan of care. 05/12/17- patient is being seen examined and evaluated today on the floor. The patient continues to be tired however is easily aroused upon examination. No further progression is noted of his rash to the right lateral chest. On examination patient's resting up in bed on room air. Shortness of breath as noted with exertion. Intermittent cough. He is afebrile, no overnight events. 05/13/17- patient is being seen examined and evaluated today on the floor. On examination the patient is resting in bed on room air, continues with shortness of breath on exertion. According to the nursing staff during breakfast the patient was coughing and choking and has dysphagia diet. Continue swallow evaluation with speech therapy has been ordered. 05/14/17-05/19/[address] Valverde's dictations 05/20/17- patient is being seen examined and evaluated today in the intensive care unit. Currently the patient is resting up in bed on 2 L of supplemental oxygen via nasal cannula. Patient continues to be tachycardic and oxygen dependent. Patient did undergo a procedure for PEG tube and is currently tolerating tube feeds. Chest x-ray has been reviewed from this morning and does show a correlation for CHF, underlying pneumonia not excluded. Upon examination the patient's vasopressors are on hold. We are trying to wean the patient off of pressors at this time. 05/21/17- patient is being seen examined and evaluated today in the intensive care unit. Patient has been noted to have significant tachycardia with episodes of hypotension, he was noted to have increased bowel movements that were loose and dark. Occult blood was sent to lab and came back positive. The patient had FMF in place. Surgical has been updated. Hemoglobin noted to drop from 8.6 this morning now down to 7.3. Orders given for 2 units of packed red blood cells as well as consult interventional radiology for PICC line insertion. chest x-ray from this afternoon revealed improved variation in both lung bases. 05/22/17- patient seen and examined in the ICU remains hypertensive but intermittent continue to have episodes of tachycardia the beta blockers are being used cautiously currently patient heart rate is about 150-160 and appears to be sinus tachycardia Cardizem drip is not working so is being discontinued patient is on IV Lopressor has been on by mouth Lopressor as well he has been transfused with packed RBC indexes of bleeding that has been seen overnight has appears to settle down patient slightly more awake now family is present at bedside care plan discussed with them the advice to proceed with a DO NOT RESUSCITATE CODE STATUS, patient is status post PICC line placement 05/23/17- patient is being seen examined and evaluated today in the intensive care unit. Patient has received a total of 4 units of packed red blood cells. Hemoglobin is noted to drop from 11.8 to 9.4 today. Surgery is also on consult , however he has a high risk candidate. His fecal management system is in place and the stools look less maroon today than previous. He continues to have intermittent confusion. His sodium was noted to be 155 today, as well as a chloride of 129. We have increased his free water flushes via PEG tube to 250 ML's every 6. Upon examination the patient's resting up in bed on 3 L of supplemental oxygen via nasal cannula. He continues to have a dry cough. Currently he is afebrile, no further complaints. The patient was seen again today 05/24/2017 in follow-up in the intensive care unit. We are covering for Dr. Valverde today. The patient remains a poor historian and mainly nonverbal. He is maintaining good O2 saturations in the mid to upper 90s on 2 L/m per nasal cannula. He's been afebrile. Somewhat tachycardic with heart rate in the 110-120's. He is status post 4 units of packed red blood cells this admission. His current hemoglobin is 8.7. He has a FMF as in place with some dark tarry stools. Surgical services are on the case. Repeat blood cultures reveal no growth to date. White count remains high at 23.5. Sodium is improved to 146. Creatinine 1.20. The patient was seen again today 05/25/2017 in follow-up in the intensive care unit. We are covering for Dr. Valverde again today. The patient status remains about the same. He is oriented times one at times. He is mostly nonverbal. His white count is trending down currently at 19.7. Hemoglobin 8.0. Sodium 147 , creatinine 1.29. He's been off pressors for several days now. Current temp 99.0 axillary. He remains on ertapenem. Objective - Vital Signs Vital signs: Vital Signs Temp 99.0 F 05/25/17 09:00 Pulse 104 H 05/25/17 09:00 Resp 17 05/25/17 09:00 BP 97/58 05/25/17 09:00 Pulse Ox 100 05/25/17 09:00 Intake & Output 05/24/17 05/25/17 05/25/17 18:59 06:59 18:59 Intake Total 1660 1890 665 Output Total 655 445 215 Balance 1005 1445 450 Weight 68 kg Intake: IV 900 825 225 Sodium Chloride 0.45% 1, 900 825 225 000 ml @ 75 mls/hr IV . [id number] [facility] Rx#:[id number] Intake, IV Titration 100 Amount Ertapenem 1 gm In Sodium 100 Chloride 0.9% 50 ml @ 100 mls/hr IVPB DAILY [facility] Rx #:[id number] Tube Feeding 760 975 260 Other 90 80 Output: Urine 455 445 115 Stool 200 100 Other: Voiding Method Indwelling Catheter Indwelling Catheter Indwelling Catheter # Voids 1 1 - Exam GENERAL EXAM: Arousable, confused. HEAD: Normocephalic. EYES: Normal reaction of pupils, equal size. NOSE: Clear with pink turbinates. THROAT: No erythema or exudates. NECK: No masses, no JVD. CHEST: No chest wall deformity. LUNGS: Equal air entry with no crackles, wheeze, rhonchi or dullness. CVS: S1 and S2 normal with no audible murmurs, regular rhythm. ABDOMEN: No hepatosplenomegaly, normal bowel sounds, no guarding or rigidity. PEG tube exit site clean dry. FMS in place. SKIN: Multiple open skin wounds and tears. Extremities: There is no significant peripheral edema. Changes of chronic venous stasis. Dressings to lower extremities. Peripheral pulses are intact. - Labs CBC & Chem 7: 05/25/17 04:35 05/25/17 04:35 Labs: Abnormal Lab Results - Last 24 Hours (Table) 05/25/17 05/25/17 05/25/17 Range/Units 04:35 04:35 08:03 WBC 19.7 H (3.8-10.6) k/uL RBC 2.61 L (4.30-5.90) m/uL Hgb 8.0 L (13.0-17.5) gm/dL Hct 25.1 L (39.0-53.0) % RDW 17.8 H (11.5-15.5) % Sodium 147 H (137-145) mmol/L Chloride 121 H* (98-107) mmol/L BUN 41 H (9-20) mg/dL Creatinine 1.29 H (0.66-1.25) mg/dL Glucose 105 H (74-99) mg/dL POC Glucose (mg/dL) 130 H (75-99) mg/dL Calcium 7.1 L (8.4-10.2) mg/dL Phosphorus 2.0 L (2.5-4.5) mg/dL AST 61 H (17-59) U/L Total Protein 4.1 L (6.3-8.2) g/dL Albumin 1.7 L (3.5-5.0) g/dL Microbiology - Last 24 Hours (Table) 05/19/17 19:46 Blood Culture - Preliminary Blood No Growth after 120 hours 05/19/17 18:30 Blood Culture - Preliminary Blood No Growth after 120 hours Assessment and Plan Plan: Assessment Supraventricular tachycardia likely related to the intravascular water depletion dehydration and anemia with ongoing intermittent GI loss Recurrent intermittent aspiration with episodes of silent aspiration patient is status post PEG tube placement Urinary tract infection, culture positive for gram negatives bacilli and E. coli , which appears to be ESBL, IVS adjust antibiotics Sepsis with fever, gram-negative Hyperkalemia, improved Acute renal failure Urinary tract infection, culture positive for gram negatives bacilli and E. coli Hypernatremia likely related to decreased oral intake Probable rectal mass, currently being worked up Diarrhea History of CVA Hypotension, recovered off pressors. Plan: The patient was seen and evaluated by Dr. Loza. His hemoglobin continues to drift down. He continues with some black tarry stools. Surgical services is on the case as well. Continue to monitor hemoglobin. His overall prognosis remains quite guarded and poor based on the above-mentioned multiple comorbidities. We are awaiting family members to have further discussion regarding the plan of care. He is a DO NOT RESUSCITATE/DO NOT INTUBATE CODE STATUS. We'll continue to follow.
[2017-05-25] MEDS: SODIUM CHLORIDE 0.45% 1,000 ML IV SCH ×2 (20:25)
--- NOTE | 2017-05-25 20:56 | EEG ---
ELECTROENCEPHALOGRAM REPORT DATE OF EE05/25/2017. REFERRING PHYSICIAN: Dr. Anderson. INTERPRETING PHYSICIAN: Dr. Teresa Baptiste MD. ELECTROENCEPHALOGRAPHIC EXAMINATION: INDICATION FOR EXAMINATION: This patient is a 82-year-old male being evaluated for altered mental status and worsening encephalopathy. This is a followup EEG for comparison. AGE: [age]. EEG FINDINGS: A routine 21 channel awake digital EEG recording was accomplished utilizing the 10-20 international system with bipolar and referential montages. The background activity in the most alert resting state consists of a low to medium amplitude, poorly developed and poorly sustained 5-6 hertz activity over the posterior head regions. This posterior rhythm attenuates to eye opening. There is a small amount of low amplitude 18-20 Hz beta activity seen maximally over the anterior head regions. Muscle and movement artifact was observed on a few occasions during the tracing. Hyperventilation was not performed. Photic stimulation at flash frequencies of 2-30 Hz produced a minimal occipital driving response. No epileptiform discharges were seen. IMPRESSION: This EEG continues to give evidence of a severe widespread diffuse disturbance in cerebral function. The EEG failed to reveal any focal, lateralizing, or epileptiform abnormalities. Compared to previous EEG studies performed on 05/20/2017 and 05/09/2017, the EEG continues to give evidence of a moderate to severe slowing of the EEG background. Clinical correlation is recommended. MMODL / IJN: [id number] /
--- NOTE | 2017-05-25 22:11 | P.PN ---
Subjective Franco Hill is a 82-year-old right-handed white male who was initially admitted to [facility] on 05/02/2017 for evaluation of sepsis and weakness. Patient was seen in neurology consultation initially back on . He was found to have evidence at that time of diffuse metabolic encephalopathy and acute renal failure. He was also being treated for gram- negative sepsis with organ dysfunction. He has been seen by infectious disease and is followed by Dr. Kenney. The patient apparently was started on symptom feedings early this afternoon and had significant residuals averaging 65 200 mL. The patient also spiked a temperature this afternoon to 101 degrees Fahrenheit. He developed symptoms of hypotension which persisted. Patient was transferred to the intensive care unit where he is now being seen in neurology follow-up. The patient is resting comfortably. He does not appear to be in acute pain. He is able to follow some simple commands. His temperature is now back to normal and is noted to be orally at 97.9. The patient was started on 5 mics of Levophed due to the severe hypotension. His CODE STATUS as per family remains full CODE STATUS at this time. Due to the change in his level of function we have recommended a stat computed tomography scan of the brain to be done this evening to rule out any acute intracranial lesion or other abnormalities. We will also plan to get a follow-up EEG for the patient tomorrow morning. Case was discussed today at length with Dr. Kenney from infectious disease who agrees with our current treatment plan. The patient developed severe anemia today and did require 2 units of packed red cells for treatment. His hemoglobin had dropped to 7.3. Apparently later this evening he developed maroon-colored stools and did require 2 more units of packed red cells. Patient also this evening has developed a low-grade temperature of 100.8. We will await further recommendations from infectious disease. According to the ICU nurse the family has now made the patient DO NOT RESUSCITATE CODE STATUS. His was at bedside and she was updated on his overall poor prognosis and his current neurological condition. She is aware of his very guarded condition at this time. Apparently he has been opening his eyes but has very little verbal output when family is at bedside. He has shown some improvement this evening in terms of his overall mental status. He is opening his eyes and does say a few words. According to the ICU nursing staff he was more alert this morning. Towards the end of the day he becomes more lethargic. He does easily arouses evening in the ICU. He is following only simple commands. He has remained relatively stable today in terms of his hemodynamics. He continues to remain slightly tachycardic and his current hemoglobin is 8.0. His hemoglobin continues to drop slowly. As noted surgery is aware of his condition. He has had some dark tarry stools today as well. Surgical services are on his case. So far his blood cultures have remained negative. His white count remains elevated at 23.5 today. Patient is noted to be using breathing treatment this evening and apparently has been less responsive late this evening. We will continue to monitor his neurological status closely in the ICU setting. We will continue to follow his progress closely with infectious disease. We will continue close monitoring of this patient in the intensive care unit. His overall prognosis at this time remains very guarded. Objective - Vital Signs Vital signs: Vital Signs Temp 98.5 F 05/25/17 17:00 Pulse 106 H 05/25/17 19:00 Resp 14 05/25/17 19:00 BP 92/57 05/25/17 19:00 Pulse Ox 97 05/25/17 19:00 Intake & Output 05/25/17 05/25/17 05/26/17 06:59 18:59 06:59 Intake Total 1890 2135 140 Output Total 445 655 20 Balance 1445 1480 120 Weight 72.9 kg Intake: IV 825 900 75 Sodium Chloride 0.45% 1, 825 900 75 000 ml @ 75 mls/hr IV . [id number] [facility] Rx#:[id number] Intake, IV Titration 100 Amount Ertapenem 1 gm In Sodium 100 Chloride 0.9% 50 ml @ 100 mls/hr IVPB DAILY [facility] Rx #:[id number] Tube Feeding 975 975 65 Other 90 160 Output: Urine 445 355 20 Stool 300 Other: Voiding Method Indwelling Catheter Indwelling Catheter # Voids 1 - Exam Physical examination: PHYSICAL EXAMINATION: Patient is resting comfortably in bed. Patient is somewhat lethargic but easily arousable. He does follow simple commands. His is at bedside. VITAL SIGNS: Blood pressure is [92/57]. Heart rate is [106]. Respiration is [14] . Temperature is [98.5]. HEENT: Head is atraumatic, neck is supple, there were no carotid bruits. CHEST: Lungs are clear to auscultation and percussion. CARDIAC: S1, S2 normal rate and rhythm. There is no murmur. ABDOMEN: Soft and nontender. Bowel sounds are present. EXTREMITIES: There is no pedal edema. Peripheral pulses are present. Neurological examination: Patient was transferred to the intensive care unit this evening. He is resting comfortably. He is alert and oriented 2. He is able to follow simple commands. He has generalized weakness. Deep tendon reflexes are 1+ and symmetric. Plantar responses flexor bilaterally. Coordination and gait cannot be assessed in this patient at this time. The patient is noted to have a breathing mask in place but does open his eyes to stimulation. He does not follow simple commands. - Labs CBC & Chem 7: 05/25/17 04:35 05/25/17 04:35 Labs: Abnormal Lab Results - Last 24 Hours (Table) 05/25/17 05/25/17 05/25/17 Range/Units 04:35 04:35 08:03 WBC 19.7 H (3.8-10.6) k/uL RBC 2.61 L (4.30-5.90) m/uL Hgb 8.0 L (13.0-17.5) gm/dL Hct 25.1 L (39.0-53.0) % RDW 17.8 H (11.5-15.5) % Sodium 147 H (137-145) mmol/L Chloride 121 H* (98-107) mmol/L BUN 41 H (9-20) mg/dL Creatinine 1.29 H (0.66-1.25) mg/dL Glucose 105 H (74-99) mg/dL POC Glucose (mg/dL) 130 H (75-99) mg/dL Calcium 7.1 L (8.4-10.2) mg/dL Phosphorus 2.0 L (2.5-4.5) mg/dL AST 61 H (17-59) U/L Total Protein 4.1 L (6.3-8.2) g/dL Albumin 1.7 L (3.5-5.0) g/dL Microbiology - Last 24 Hours (Table) 05/19/17 19:46 Blood Culture - Preliminary Blood No Growth after 120 hours 05/19/17 18:30 Blood Culture - Preliminary Blood No Growth after 120 hours Assessment and Plan (1) Acute metabolic encephalopathy Status: Acute Code(s): G93.41 - METABOLIC ENCEPHALOPATHY (2) Gram-negative sepsis with organ dysfunction Status: Acute Code(s): A41.50 - GRAM-NEGATIVE SEPSIS, UNSPECIFIED; R65.20 - SEVERE SEPSIS WITHOUT SEPTIC SHOCK (3) Acute renal failure Status: Acute Code(s): N17.9 - ACUTE KIDNEY FAILURE, UNSPECIFIED (4) Febrile illness Status: Acute Code(s): R50.9 - FEVER, UNSPECIFIED Plan: This patient is a 82-year-old male who was initially admitted to Hospital with symptoms of increasing weakness and sepsis. Today he was on the medical floor and developed residual retention of his tube feedings. He then spiked a temperature of 101F. He then showed signs of severe hypotension. He was transferred to the intensive care unit this evening where he is now been examined. Patient was started on 5 mics of Levophed due to the hypotension. We have arranged for a stat computed tomography scan of the brain to be done this evening for further evaluation. The patient is afebrile at this time. He is being followed closely by infectious disease and Dr. Kenney for gram- negative sepsis. He is on antibiotic coverage. The patient continues to have low-grade temperature today of 100.8. He is also received 4 units of packed red cells due to severe anemia. The family has now decided to make the patient DO NOT RESUSCITATE CODE STATUS due to his complex medical history. The patient remains somewhat encephalopathic at this time. was updated on his overall neurological status and current condition. She is aware of his guarded condition. We will continue close neurological follow-up of this patient in the intensive care unit. His mental status has shown some improvement today. He is slightly more awake and able to answer some questions today. His neurological findings are consistent with a diffuse metabolic encephalopathy. As noted his CODE STATUS remains no code as per the family wishes. His overall prognosis at this time remains very guarded. Case was discussed yesterday at length with the patient's and son at bedside. All of their questions were answered. They are both aware of his guarded condition. The patient remains somewhat obtunded this evening. He does follow some simple commands. We are waiting further recommendations from infectious disease in regards to his sepsis. He does have underlying urinary tract infection with positive cultures for gram-negative bacilli in the E. coli. He is being followed closely by infectious disease. He is currently receiving antibiotics which include Polysporin and ertapenem. He remains afebrile this evening. The patient did undergo a follow-up EEG today for further evaluation of his overall cognitive function. His EEG remains very slow and consistent with moderate to severe encephalopathy. There is very little change compared to a previous EEG that was done on 05/20/2017. His overall prognosis at this time remains very guarded. We will continue close neurological follow-up of this patient in the intensive care unit.
[2017-05-26 04:48] LABS: Anisocytosis Slight; Basophils # (A) 0.1 k/uL (0-0.2); Basophils % (A) 0 %; CH 29.3; CHCM 30.8; Eosinophils # (A) 0.7 k/uL (0-0.7); Eosinophils % (A) 4 %; HCT 24.5 % (39.0-53.0); HGB 7.9 gm/dL (13.0-17.5); Hypochromasia Moderate; Luc # (Auto) 0.27; Luc % (Auto) 2; Lymphocytes # (A) 1.5 k/uL (1.0-4.8); Lymphocytes % (A) 9 %; MCHC 32.3 g/dL (31.0-37.0); MCV 96.1 fL (80.0-100.0); Macrocytosis Slight; Mean Platelet Volume 9.4; Monocytes # (A) 0.8 k/uL (0-1.0); Monocytes % (A) 5 %; Neutrophils # (A) 13.9 k/uL (1.3-7.7); Neutrophils % (A) 81 %; RBC 2.55 m/uL (4.30-5.90); RDW 17.5 % (11.5-15.5); WBC 17.2 k/uL (3.8-10.6); WBC (Perox) 18.01
[2017-05-26 05:04] LABS: ALT 37 U/L (21-72); AST 61 U/L (17-59); Alkaline Phosphatase 133 U/L (38-126); Anion Gap 3 mmol/L; Blood Urea Nitrogen 39 mg/dL (9-20); Carbon Dioxide 22 mmol/L (22-30); Chloride 118 mmol/L (98-107); Glucose 110 mg/dL (74-99); Magnesium 2.2 mg/dL (1.6-2.3); Non-African American GFR(MDRD) 58 (>60 ml/min/1.73 sqM); Potassium 4.4 mmol/L (3.5-5.1); Sodium 143 mmol/L (137-145); Total Bilirubin 0.2 mg/dL (0.2-1.3); Total Protein 4.1 g/dL (6.3-8.2)
[2017-05-26] MEDS: ENOXAPARIN 40 MG/0.4 ML SYRINGE SQ SCH (07:01)
[2017-05-26] MEDS: SODIUM CHLORIDE 0.45% 1,000 ML IV SCH ×2 (07:01→17:07)
[2017-05-26] MEDS: METOPROLOL TARTRATE 50 MG TAB PO SCH ×3 (07:58→22:32)
[2017-05-26] MEDS: LORATADINE 10 MG TAB PO SCH (08:05)
[2017-05-26] MEDS: PANTOPRAZOLE 40 MG/10 ML VIAL IVP SCH (08:05)
[2017-05-26] MEDS: ERTAPENEM 1 GM in SODIUM CHLORIDE 0.9% 50 ML IVPB SCH (08:05)
[2017-05-26] MEDS: SUCRALFATE 1 GM TAB PO SCH ×4 (08:05→22:32)
[2017-05-26] MEDS: BACITRACIN/POLYMYX 500-10,000 UNIT/GM OPHTH OINT 3.5 GM TUBE BOTH EYES SCH ×4 (08:06→22:46)
[2017-05-26] MEDS: AMMONIUM LACTATE 12% LOTION 225 GM BTL TOPICAL SCH ×2 (08:06→22:45)
[2017-05-26] MEDS: BUDESONIDE 0.5 MG/2 ML NEBU INHALATION SCH ×2 (08:35→21:41)
[2017-05-26] MEDS: IPRATROPIUM-ALBUTEROL 3 ML NEB INHALATION SCH ×3 (08:35→21:41)
--- NOTE | 2017-05-26 09:55 | P.PN ---
Subjective 05/08/17- This is an 82-year-old male patient who came into the emergency department on 05/02/2017 from an extended care facility. Patient was noted to have a potassium of 6.4 at the extended care facility and therefore they sent him over. The patient did not have any further complaints and he has intermittent confusion which is his baseline. EKG performed in the emergency room did show sinus rhythm with occasional PVCs, patient had no ST segment elevation or depression or T-wave abnormalities. The patient was put on lactulose. Hypertension is also being worked up for possible rectal mass and will undergo colonoscopy when stable with Dr. Piña. All labs and reports have been reviewed. Patient is being seen and examined today on the sixth floor for pulmonary services related to progression of shortness of breath over the last few days. He has had a cough however denies any congestion. Nursing staff has denied any sputum production. He is alert and oriented 1 with intermittent confusion. Has been afebrile. Currently is on 3 L of supplemental oxygen via nasal cannula. It is unclear if the patient utilized oxygen in the extended care facility setting. Patient is also on a mechanical soft diet with aspiration precautions. 05/09/17- this patient is being evaluated and examined and seen on rounds today. All labs and reports were reviewed. The patient hyperkalemia has improved. The white blood cell count has come down to 12.8. Patient was noted to have increased lethargy and decreased cognition yesterday afternoon therefore a neurology consult was initiated. Patient is going for a CT of the brain as well as an EEG today. Patient's speech is noted to be slightly slurred and mumbled. Overnight he was noted to refuse care, had increase in agitation, and was refusing food and fluids. and primary care were updated. 05/10/17- this patient is being evaluated exam and seen today on the selective care unit. All labs and reports have been reviewed. Patient appears more awake today than previously. Patient did undergo a CT of the brain and EEG yesterday. Neurology and nephrology is on consult. Patient's prognosis is guarded and he has multiple comorbidities. Upon examination the patient's resting up in bed on room air states he occasionally has shortness of breath with exertion. He denies any cough or congestion at this time. Discharge planning is in process and appears the patient will go back to extended care facility when discharged. 05/11/17- patient is being seen in evaluated and examined today on the fifth floor. Patient is known to be slightly tired however is easily awoken. Currently he is resting up in bed on room air. Patient noticed to have a faint light red flat erythema rash to his right lateral chest. He denies any itching or pain. The area is small and diffuse. We will continue to monitor this. He does have Lotrisone cream for the area. On examination he denies any shortness of breath cough or congestion. Family at bedside updated on plan of care. 05/12/17- patient is being seen examined and evaluated today on the floor. The patient continues to be tired however is easily aroused upon examination. No further progression is noted of his rash to the right lateral chest. On examination patient's resting up in bed on room air. Shortness of breath as noted with exertion. Intermittent cough. He is afebrile, no overnight events. 05/13/17- patient is being seen examined and evaluated today on the floor. On examination the patient is resting in bed on room air, continues with shortness of breath on exertion. According to the nursing staff during breakfast the patient was coughing and choking and has dysphagia diet. Continue swallow evaluation with speech therapy has been ordered. 05/14/17-05/19/[address] Valverde's dictations 05/20/17- patient is being seen examined and evaluated today in the intensive care unit. Currently the patient is resting up in bed on 2 L of supplemental oxygen via nasal cannula. Patient continues to be tachycardic and oxygen dependent. Patient did undergo a procedure for PEG tube and is currently tolerating tube feeds. Chest x-ray has been reviewed from this morning and does show a correlation for CHF, underlying pneumonia not excluded. Upon examination the patient's vasopressors are on hold. We are trying to wean the patient off of pressors at this time. 05/21/17- patient is being seen examined and evaluated today in the intensive care unit. Patient has been noted to have significant tachycardia with episodes of hypotension, he was noted to have increased bowel movements that were loose and dark. Occult blood was sent to lab and came back positive. The patient had FMF in place. Surgical has been updated. Hemoglobin noted to drop from 8.6 this morning now down to 7.3. Orders given for 2 units of packed red blood cells as well as consult interventional radiology for PICC line insertion. chest x-ray from this afternoon revealed improved variation in both lung bases. 05/22/17- patient seen and examined in the ICU remains hypertensive but intermittent continue to have episodes of tachycardia the beta blockers are being used cautiously currently patient heart rate is about 150-160 and appears to be sinus tachycardia Cardizem drip is not working so is being discontinued patient is on IV Lopressor has been on by mouth Lopressor as well he has been transfused with packed RBC indexes of bleeding that has been seen overnight has appears to settle down patient slightly more awake now family is present at bedside care plan discussed with them the advice to proceed with a DO NOT RESUSCITATE CODE STATUS, patient is status post PICC line placement 05/23/17- patient is being seen examined and evaluated today in the intensive care unit. Patient has received a total of 4 units of packed red blood cells. Hemoglobin is noted to drop from 11.8 to 9.4 today. Surgery is also on consult , however he has a high risk candidate. His fecal management system is in place and the stools look less maroon today than previous. He continues to have intermittent confusion. His sodium was noted to be 155 today, as well as a chloride of 129. We have increased his free water flushes via PEG tube to 250 ML's every 6. Upon examination the patient's resting up in bed on 3 L of supplemental oxygen via nasal cannula. He continues to have a dry cough. Currently he is afebrile, no further complaints. The patient was seen again today 05/24/2017 in follow-up in the intensive care unit. We are covering for Dr. Valverde today. The patient remains a poor historian and mainly nonverbal. He is maintaining good O2 saturations in the mid to upper 90s on 2 L/m per nasal cannula. He's been afebrile. Somewhat tachycardic with heart rate in the 110-120's. He is status post 4 units of packed red blood cells this admission. His current hemoglobin is 8.7. He has a FMF as in place with some dark tarry stools. Surgical services are on the case. Repeat blood cultures reveal no growth to date. White count remains high at 23.5. Sodium is improved to 146. Creatinine 1.20. The patient was seen again today 05/25/2017 in follow-up in the intensive care unit. We are covering for Dr. Valverde again today. The patient status remains about the same. He is oriented times one at times. He is mostly nonverbal. His white count is trending down currently at 19.7. Hemoglobin 8.0. Sodium 147 , creatinine 1.29. He's been off pressors for several days now. Current temp 99.0 axillary. He remains on ertapenem. On 05/26/2017 I'm seeing this patient in follow-up in the intensive care unit. Unfortunately, not a lot of progress has been done on this patient. He was seen by Dr. Valverde and his primary care physician is Dr. Anderson. I'm covering this patient for Dr. Valverde regarding his ICU care. The patient is quite debilitated. His rest comfortably in bed. He does not initiate a conversation. He states most of the time. He is alert and oriented only 1, which is to self. He is receiving enteral feeding for nutritional support and he seems to be tolerating the feeds is currently at goal at 65 mL an hour. He is being treated for ESBL urine checked infection and is currently on ertapenem. He is afebrile. On and off she is having rounds of itching fibrillation. For the most part he is in sinus tachycardia with a heart rate in the low 100s. His hemoglobin is stable at 7.9. His white cell count is gradually improving is down to 17.2. He is receiving broncho-dilators around- the-clock. Aspiration precaution. Lovenox for DVT prophylaxis. He is on no pressors. Metoprolol is being utilized 50 mg by mouth 3 times a day. He is on no pressors. The EEG was done yesterday and showed no evidence of any seizure and there is diffuse widespread disturbance in cerebral function consistent with diffuse slowing. The patient was seen by neurology. As mentioned earlier the patient is arousable however he is not coherent, and he does not follow commands or hold a conversation. He remains quite obtunded and encephalopathic. There is obviously multifactorial. Metabolic encephalopathy due to underlying sepsis is thought to be contributing to this. His latest CAT scan of the brain showed stable generalized atrophy and small vessel ischemic changes with encephalomalacia on the right cerebellar hemisphere. The FMF is still in place. No active bleeding from his rectum at this point. Objective - Vital Signs Vital signs: Vital Signs Temp 98.3 F 05/26/17 04:00 Pulse 110 H 05/26/17 08:51 Resp 18 05/26/17 07:00 BP 120/58 05/26/17 07:00 Pulse Ox 98 05/26/17 07:00 Intake & Output 05/25/17 05/26/17 05/26/17 18:59 06:59 18:59 Intake Total 2135 1615 140 Output Total 655 955 35 Balance 1480 660 105 Weight 72.9 kg Intake: IV 900 900 75 Sodium Chloride 0.45% 1, 900 900 75 000 ml @ 75 mls/hr IV . [id number] [facility] Rx#:[id number] Intake, IV Titration 100 Amount Ertapenem 1 gm In Sodium 100 Chloride 0.9% 50 ml @ 100 mls/hr IVPB DAILY [facility] Rx #:[id number] Tube Feeding 975 715 65 Other 160 Output: Urine 355 455 35 Stool 300 500 Other: Voiding Method Indwelling Catheter Indwelling Catheter # Voids 1 1 - Exam GENERAL EXAM: Arousable, confused.. Very much cachectic and debilitated. Has multiple skin wounds both in upper and lower extremities and all of them are covered at this point. No agitation. No resting tremors. No seizure activity. HEAD: Normocephalic. EYES: Normal reaction of pupils, equal size. No facial asymmetry. Mucous membranes are dry and he is receiving oral care. NOSE: Clear with pink turbinates. THROAT: No erythema or exudates. NECK: No masses, no JVD. CHEST: No chest wall deformity. LUNGS: Equal air entry with no crackles, wheeze, rhonchi or dullness. CVS: S1 and S2 normal with no audible murmurs, regular rhythm. ABDOMEN: No hepatosplenomegaly, normal bowel sounds, no guarding or rigidity. PEG tube exit site clean dry. FMS in place. Tube is in place and the patient is tolerating the enteral feeding. SKIN: Multiple open skin wounds and tears. Extremities: There is no significant peripheral edema. Changes of chronic venous stasis. Dressings to lower extremities. Peripheral pulses are intact. - Labs CBC & Chem 7: 05/26/17 04:40 05/26/17 04:40 Labs: Abnormal Lab Results - Last 24 Hours (Table) 05/26/17 05/26/17 Range/Units 04:40 04:40 WBC 17.2 H (3.8-10.6) k/uL RBC 2.55 L (4.30-5.90) m/uL Hgb 7.9 L (13.0-17.5) gm/dL Hct 24.5 L (39.0-53.0) % RDW 17.5 H (11.5-15.5) % Neutrophils # 13.9 H (1.3-7.7) k/uL Chloride 118 H (98-107) mmol/L BUN 39 H (9-20) mg/dL Glucose 110 H (74-99) mg/dL Calcium 7.0 L (8.4-10.2) mg/dL Phosphorus 2.0 L (2.5-4.5) mg/dL AST 61 H (17-59) U/L Alkaline Phosphatase 133 H (38-126) U/L Total Protein 4.1 L (6.3-8.2) g/dL Albumin 1.7 L (3.5-5.0) g/dL Microbiology - Last 24 Hours (Table) 05/19/17 19:46 Blood Culture - Final Blood No Growth after 144 hours 05/19/17 18:30 Blood Culture - Final Blood No Growth after 144 hours Assessment and Plan Plan: Assessment 1 diffuse encephalopathy with diminished level of consciousness. CAT scan of the brain showed diffuse cerebral atrophy and EEG is consistent with diffuse slowing. Doubt this an acute stroke. There may be an underlying dementia with superimposed encephalopathy of due to septic metabolic derangements. Neurologist on the case. 2 episode to a ventricular tachycardia/atrial fibrillation and currently his rhythm is sinus tachycardia. He is on oral Lopressor 3 Recurrent intermittent aspiration with episodes of silent aspiration patient is status post PEG tube placement. His last chest x-ray was from 05/22/2017. A repeat chest x-ray will be done today. No clinical evidence of ongoing aspiration at this point. 4 Urinary tract infection, culture positive for gram negatives bacilli and E. coli, which appears to be ESBL, IVS adjust antibiotics 5 Sepsis secondary to above 6 Hyperkalemia, improved 7 Acute renal failure, improved creatinine is down to 1.2 8 Urinary tract infection, culture positive for gram negatives bacilli and E. coli 9 Hypernatremia, resolved 10 Probable rectal mass, currently being worked up and the patient has an FMS in place and on and off his having black stools. Surgery to see the patient and there is no plan to investigate this further based on his underlying comorbidities and very poor baseline performance and functional status. 11 History of CVA 12 Hypotension, recovered off pressors 15 chronic anemia, multifactorial with a hemoglobin of 7.9 Plan Unfortunately his condition is very poor and the patient is not showing significant progress over the past 24-48 hours. She was essentially supportive at this point with treating his sepsis IV antibiotics. Aspiration precautions. Repeat chest x-ray today to make sure there is no pulmonary complications related to pneumonia or aspiration. Meanwhile, we'll continue monitoring his cardiac rhythm. He is on oral Lopressor. Cardiology is on the case. Monitor the electrolytes. Monitor the hemoglobin. Wound care. The patient can be chest at the medical floor. His CODE STATUS is DNR/DNI.
--- NOTE | 2017-05-26 11:03 | PN ---
PROGRESS NOTE DATE OF SERVICE: 05/25/2017 I am covering for Dr. Anderson. This 82-year-old gentleman was admitted with sepsis with renal failure is being closely monitored. The patient also had a possible UTI also. The patient has got multiple medical issues and chris course in the hospital according to Dr. Anderson. The patient is being monitored in ICU. Neurology and Pulmonology are following the patient closely. As far as cultures, the urine cultures are positive with E coli on 05/03/2017 which is ESBL. IV antibiosis have been adjusted by Infectious Disease. PAST MEDICAL HISTORY: Reviewed. REVIEW OF SYSTEMS: Review of systems could not be obtained. The patient is still drowsy. MEDICATIONS: The current medications are reviewed and include: 1. Tylenol 650 q.4 p.r.n. 2. Enterprise Elixir. 3. DuoNeb q.i.d. and p.r.n. 4. Colace. 5. Pulmicort. 6. Valium. 7. Lovenox 40 subcu daily. 8. Ertapenem 1 g IV daily. 9. Lactate. 10.Claritin. 11.Ativan. 12.Lopressor. 13.Zofran. 14.Protonix. 15.Carafate. PHYSICAL EXAMINATION: The patient is alert, oriented x3. Pulse is 109, blood pressure 106/65, respirations 19, temperature 99.9, pulse ox 97% on 4 L. HEENT: Conjunctivae normal. Oral mucosa moist. NECK: No jugular venous distention. No carotid bruit. No lymph node enlargement. CARDIOVASCULAR: S1, S2. No S3 or S4. RESPIRATORY: Breath sounds diminished at the bases. Scattered rhonchi and crackles. ABDOMEN: Soft, nontender. LEGS: No edema, no swelling. NERVOUS SYSTEM: Diffusely weak. LAB EVALUATION: WBC 19.7, hemoglobin is 8, otherwise sodium 147, potassium 4.5, creatinine is 1.29. ASSESSMENT: 1. Acute urinary tract infection with possible ESBL E. coli with sepsis. 2. Acute renal failure. 3. Gram-negative sepsis. 4. History of cerebrovascular accident, transient ischemic attack. 5. Hypernatremia. 6. Status post PEG tube placement. 7. Anemia postop blood loss. 8. Increased WBC count. 9. Hypoalbuminemia with severe protein calorie malnutrition. 10.NO CODE, NO CPR, NO VENT. RECOMMENDATIONS AND DISCUSSION: In this 82-year-old gentleman who presents with multiple complex medical issues, we will monitor the patient closely. Continue the current medications, and symptomatic treatment. Otherwise at this time I recommend continue antibiotics, Infectious Disease follow up. Pulmonary consultation. The prognosis extremely guarded because of multiple complex medical issues. I had a detailed discussion with the family at this time. Further recommendations to follow. [id number] / IJN: [id number] /
[2017-05-26] MEDS: HYDROcodone/APAP 15 ML SOLUTION PEG/G-TUBE PRN (13:35)
--- NOTE | 2017-05-26 15:52 | P.PN ---
Subjective Franco Hill is a 82-year-old right-handed white male who was initially admitted to [facility] on 05/02/2017 for evaluation of sepsis and weakness. Patient was seen in neurology consultation initially back on . He was found to have evidence at that time of diffuse metabolic encephalopathy and acute renal failure. He was also being treated for gram- negative sepsis with organ dysfunction. He has been seen by infectious disease and is followed by Dr. Kenney. The patient apparently was started on symptom feedings early this afternoon and had significant residuals averaging 65 200 mL. The patient also spiked a temperature this afternoon to 101 degrees Fahrenheit. He developed symptoms of hypotension which persisted. Patient was transferred to the intensive care unit where he is now being seen in neurology follow-up. The patient is resting comfortably. He does not appear to be in acute pain. He is able to follow some simple commands. His temperature is now back to normal and is noted to be orally at 97.9. The patient was started on 5 mics of Levophed due to the severe hypotension. His CODE STATUS as per family remains full CODE STATUS at this time. Due to the change in his level of function we have recommended a stat computed tomography scan of the brain to be done this evening to rule out any acute intracranial lesion or other abnormalities. We will also plan to get a follow-up EEG for the patient tomorrow morning. Case was discussed today at length with Dr. Kenney from infectious disease who agrees with our current treatment plan. The patient developed severe anemia today and did require 2 units of packed red cells for treatment. His hemoglobin had dropped to 7.3. Apparently later this evening he developed maroon-colored stools and did require 2 more units of packed red cells. Patient also this evening has developed a low-grade temperature of 100.8. We will await further recommendations from infectious disease. According to the ICU nurse the family has now made the patient DO NOT RESUSCITATE CODE STATUS. His was at bedside and she was updated on his overall poor prognosis and his current neurological condition. She is aware of his very guarded condition at this time. Apparently he has been opening his eyes but has very little verbal output when family is at bedside. He has shown some improvement this evening in terms of his overall mental status. He is opening his eyes and does say a few words. According to the ICU nursing staff he was more alert this morning. Towards the end of the day he becomes more lethargic. He does easily arouses evening in the ICU. He is following only simple commands. He has remained relatively stable today in terms of his hemodynamics. He continues to remain slightly tachycardic and his current hemoglobin is 8.0. His hemoglobin continues to drop slowly. As noted surgery is aware of his condition. He has had some dark tarry stools today as well. Surgical services are on his case. So far his blood cultures have remained negative. His white count remains elevated at 23.5 today. Patient is noted to be using breathing treatment this evening and apparently has been less responsive late this evening. Patient is running a temperature today of 100.3. Infectious disease is following the patient. Patient does follow some simple commands today. He is less obtunded as compared to yesterday. He still has generalized weakness. We will continue to monitor his neurological status closely in the ICU setting. We will continue to follow his progress closely with infectious disease. We will continue close monitoring of this patient in the intensive care unit. His overall prognosis at this time remains very guarded. Objective - Vital Signs Vital signs: Vital Signs Temp 100.3 F H 05/26/17 12:00 Pulse 126 H 05/26/17 13:00 Resp 30 H 05/26/17 13:00 BP 88/67 05/26/17 13:00 Pulse Ox 96 05/26/17 13:00 Intake & Output 05/25/17 05/26/17 05/26/17 18:59 06:59 18:59 Intake Total 2135 1615 1270 Output Total 655 955 515 Balance 1480 660 755 Weight 72.9 kg 73.3 kg Intake: IV 900 900 525 Sodium Chloride 0.45% 1, 900 900 525 000 ml @ 75 mls/hr IV . [id number] [facility] Rx#:[id number] Intake, IV Titration 100 Amount Ertapenem 1 gm In Sodium 100 Chloride 0.9% 50 ml @ 100 mls/hr IVPB DAILY [facility] Rx #:[id number] Tube Feeding 975 715 585 Other 160 160 Output: Urine 355 455 215 Stool 300 500 300 Other: Voiding Method Indwelling Catheter Indwelling Catheter Indwelling Catheter # Voids 1 1 1 - Exam Physical examination: PHYSICAL EXAMINATION: Patient is resting comfortably in bed. Patient is somewhat lethargic but easily arousable. He does follow simple commands. His is at bedside. VITAL SIGNS: Blood pressure is [119/62]. Heart rate is [112]. Respiration is [21 ]. Temperature is [100.3]. HEENT: Head is atraumatic, neck is supple, there were no carotid bruits. CHEST: Lungs are clear to auscultation and percussion. CARDIAC: S1, S2 normal rate and rhythm. There is no murmur. ABDOMEN: Soft and nontender. Bowel sounds are present. EXTREMITIES: There is no pedal edema. Peripheral pulses are present. Neurological examination: Patient was transferred to the intensive care unit this evening. He is resting comfortably. He is alert and oriented 2. He is able to follow simple commands. He has generalized weakness. Deep tendon reflexes are 1+ and symmetric. Plantar responses flexor bilaterally. Coordination and gait cannot be assessed in this patient at this time. The patient is noted to have a breathing mask in place but does open his eyes to stimulation. He does not follow simple commands. - Labs CBC & Chem 7: 05/26/17 04:40 05/26/17 04:40 Labs: Abnormal Lab Results - Last 24 Hours (Table) 05/26/17 05/26/17 Range/Units 04:40 04:40 WBC 17.2 H (3.8-10.6) k/uL RBC 2.55 L (4.30-5.90) m/uL Hgb 7.9 L (13.0-17.5) gm/dL Hct 24.5 L (39.0-53.0) % RDW 17.5 H (11.5-15.5) % Neutrophils # 13.9 H (1.3-7.7) k/uL Chloride 118 H (98-107) mmol/L BUN 39 H (9-20) mg/dL Glucose 110 H (74-99) mg/dL Calcium 7.0 L (8.4-10.2) mg/dL Phosphorus 2.0 L (2.5-4.5) mg/dL AST 61 H (17-59) U/L Alkaline Phosphatase 133 H (38-126) U/L Total Protein 4.1 L (6.3-8.2) g/dL Albumin 1.7 L (3.5-5.0) g/dL Microbiology - Last 24 Hours (Table) 05/19/17 19:46 Blood Culture - Final Blood No Growth after 144 hours 05/19/17 18:30 Blood Culture - Final Blood No Growth after 144 hours Assessment and Plan (1) Acute metabolic encephalopathy Status: Acute Code(s): G93.41 - METABOLIC ENCEPHALOPATHY (2) Gram-negative sepsis with organ dysfunction Status: Acute Code(s): A41.50 - GRAM-NEGATIVE SEPSIS, UNSPECIFIED; R65.20 - SEVERE SEPSIS WITHOUT SEPTIC SHOCK (3) Acute renal failure Status: Acute Code(s): N17.9 - ACUTE KIDNEY FAILURE, UNSPECIFIED (4) Febrile illness Status: Acute Code(s): R50.9 - FEVER, UNSPECIFIED Plan: This patient is a 82-year-old male who was initially admitted to Hospital with symptoms of increasing weakness and sepsis. Today he was on the medical floor and developed residual retention of his tube feedings. He then spiked a temperature of 101F. He then showed signs of severe hypotension. He was transferred to the intensive care unit this evening where he is now been examined. Patient was started on 5 mics of Levophed due to the hypotension. We have arranged for a stat computed tomography scan of the brain to be done this evening for further evaluation. The patient is afebrile at this time. He is being followed closely by infectious disease and Dr. Kenney for gram- negative sepsis. He is on antibiotic coverage. The patient continues to have low-grade temperature today of 100.8. He is also received 4 units of packed red cells due to severe anemia. The family has now decided to make the patient DO NOT RESUSCITATE CODE STATUS due to his complex medical history. The patient remains somewhat encephalopathic at this time. was updated on his overall neurological status and current condition. She is aware of his guarded condition. We will continue close neurological follow-up of this patient in the intensive care unit. His mental status has shown some improvement today. He is slightly more awake and able to answer some questions today. His neurological findings are consistent with a diffuse metabolic encephalopathy. As noted his CODE STATUS remains no code as per the family wishes. His overall prognosis at this time remains very guarded. Case was discussed yesterday at length with the patient's and son at bedside. All of their questions were answered. They are both aware of his guarded condition. The patient remains somewhat obtunded this evening. He does follow some simple commands. We are waiting further recommendations from infectious disease in regards to his sepsis. He does have underlying urinary tract infection with positive cultures for gram-negative bacilli in the E. coli. He is being followed closely by infectious disease. He is currently receiving antibiotics which include Polysporin and ertapenem. He remains afebrile this evening. The patient did undergo a follow-up EEG today for further evaluation of his overall cognitive function. His EEG remains very slow and consistent with moderate to severe encephalopathy. There is very little change compared to a previous EEG that was done on 05/20/2017. Patient is running temperature today of 100.3. Infectious disease is following the patient closely. Patient still remains lethargic but easily arousable. He is only able to say only a few words. His overall prognosis at this time remains very guarded. We will continue close neurological follow-up of this patient in the intensive care unit.
--- NOTE | 2017-05-26 21:57 | PN ---
PROGRESS NOTE DATE OF SERVICE: 05/26/17 I am covering for Dr. Anderson. INTERVAL HISTORY: This 82-year-old gentleman admitted with sepsis with ESBL E coli also had multiple complications of medical issues also. The patient had change in mental status and metabolic encephalopathy. Because of aspiration and other issues PEG tube was also inserted. Patient is being closely monitored at this time. The renal functions and other parameters are fluctuating as well. Infectious disease is following the patient closely. The patient is on IV Invanz 1 gm daily. PAST MEDICAL HISTORY: Reviewed. REVIEW OF SYMPTOMS: Review of systems could not be taken. The patient is stuporous. CURRENT MEDICATIONS: Reviewed include: 1. Tylenol 650 q.4h p.r.n. 2. Mobile elixir. 3. Albuterol. 4. Bacitracin. 5. Pulmicort 0.5 b.i.d. 6. Valium. 7. Lovenox 40 mg. 8. Invanz 1 gm IV daily. 9. Lac-Hydrin. 10.Claritin 10 mg daily. 11.Ativan 0.5 q6h p.r.n. 12.Lopressor. 13.KCL. 14.Magnesium. 15.Zofran. 16.Protonix. 17.Carafate. PHYSICAL EXAMINATION: The patient is stuporous. Pulse is 126, blood pressure 88/67. Respiratory rate 32, temperature 100.2, pulse ox 96% room air. HEENT: Conjunctivae normal. Oral mucosa moist. Neck is no jugular venous distention. No carotid bruit. No lymph node enlargement. Cardiovascular is S1, S2. No S3, no S4. Respiratory: Breath sounds diminished at the bases. A few scattered rhonchi and crackles. Abdomen is soft , nontender. No mass palpable. Legs no edema. No swelling. Central nervous system: Diffusely weak. LABORATORY DATA: WBC 7.2, hemoglobin 7.9. ASSESSMENT: 1. Acute urinary tract infection with sepsis. The ESBL E coli. 2. Acute renal failure. 3. Change in mental status metabolic encephalopathy, acute. 4. Gram-negative sepsis. 5. History of cerebrovascular accident, transient ischemic attack. 6. Hypernatremia. 7. Status post PEG tube placement. 8. Anemia possibly blood loss anemia from gastrointestinal tract. 9. Increased WBC. 10.Hypoalbuminemia with severe protein calorie malnutrition. 11.NO CODE, NO CPR, NO VENT. RECOMMENDATIONS AND DISCUSSION: Recommend to continue current medications, continue symptomatic treatment. Otherwise, closely follow with multiple consultants and we will follow the patient closely with infectious disease. Patient is still running fever, white count is elevated and patient is on IV antibiotics. We will repeat cultures. Guarded prognosis. Further recommendations to follow. MMODL / IJN: [id number] / MTDD
[2017-05-27] MEDS: SODIUM CHLORIDE 0.45% 1,000 ML IV SCH ×2 (06:02→17:17)
[2017-05-27] MEDS: ENOXAPARIN 40 MG/0.4 ML SYRINGE SQ SCH (06:03)
[2017-05-27] MEDS: BUDESONIDE 0.5 MG/2 ML NEBU INHALATION SCH ×2 (08:41→20:31)
[2017-05-27] MEDS: IPRATROPIUM-ALBUTEROL 3 ML NEB INHALATION SCH ×3 (08:41→20:31)
[2017-05-27] MEDS: AMMONIUM LACTATE 12% LOTION 225 GM BTL TOPICAL SCH ×2 (09:42→20:57)
[2017-05-27] MEDS: ERTAPENEM 1 GM in SODIUM CHLORIDE 0.9% 50 ML IVPB SCH (09:43)
[2017-05-27] MEDS: LORATADINE 10 MG TAB PO SCH (09:43)
[2017-05-27] MEDS: METOPROLOL TARTRATE 50 MG TAB PO SCH ×3 (09:43→20:57)
[2017-05-27] MEDS: PANTOPRAZOLE 40 MG/10 ML VIAL IVP SCH (09:43)
[2017-05-27] MEDS: BACITRACIN/POLYMYX 500-10,000 UNIT/GM OPHTH OINT 3.5 GM TUBE BOTH EYES SCH ×4 (09:43→20:57)
[2017-05-27] MEDS: SUCRALFATE 1 GM TAB PO SCH ×4 (09:43→20:58)
--- NOTE | 2017-05-27 10:58 | P.PN ---
Subjective Franco Hill is a 82-year-old right-handed white male who was initially admitted to [facility] on 05/02/2017 for evaluation of sepsis and weakness. Patient was seen in neurology consultation initially back on . He was found to have evidence at that time of diffuse metabolic encephalopathy and acute renal failure. He was also being treated for gram- negative sepsis with organ dysfunction. He has been seen by infectious disease and is followed by Dr. Kenney. The patient apparently was started on symptom feedings early this afternoon and had significant residuals averaging 65 200 mL. The patient also spiked a temperature this afternoon to 101 degrees Fahrenheit. He developed symptoms of hypotension which persisted. Patient was transferred to the intensive care unit where he is now being seen in neurology follow-up. The patient is resting comfortably. He does not appear to be in acute pain. He is able to follow some simple commands. His temperature is now back to normal and is noted to be orally at 97.9. The patient was started on 5 mics of Levophed due to the severe hypotension. His CODE STATUS as per family remains full CODE STATUS at this time. Due to the change in his level of function we have recommended a stat computed tomography scan of the brain to be done this evening to rule out any acute intracranial lesion or other abnormalities. We will also plan to get a follow-up EEG for the patient tomorrow morning. Case was discussed today at length with Dr. Kenney from infectious disease who agrees with our current treatment plan. The patient developed severe anemia today and did require 2 units of packed red cells for treatment. His hemoglobin had dropped to 7.3. Apparently later this evening he developed maroon-colored stools and did require 2 more units of packed red cells. Patient also this evening has developed a low-grade temperature of 100.8. We will await further recommendations from infectious disease. According to the ICU nurse the family has now made the patient DO NOT RESUSCITATE CODE STATUS. His was at bedside and she was updated on his overall poor prognosis and his current neurological condition. She is aware of his very guarded condition at this time. Apparently he has been opening his eyes but has very little verbal output when family is at bedside. He has shown some improvement this evening in terms of his overall mental status. He is opening his eyes and does say a few words. According to the ICU nursing staff he was more alert this morning. Towards the end of the day he becomes more lethargic. He does easily arouses evening in the ICU. He is following only simple commands. He has remained relatively stable today in terms of his hemodynamics. He continues to remain slightly tachycardic and his current hemoglobin is 8.0. His hemoglobin continues to drop slowly. As noted surgery is aware of his condition. He has had some dark tarry stools today as well. Surgical services are on his case. So far his blood cultures have remained negative. His white count remains elevated at 23.5 today. Patient is noted to be using breathing treatment this evening and apparently has been less responsive late this evening. Patient is running a temperature today of 100.3. Infectious disease is following the patient. Patient does follow some simple commands today. He is less obtunded as compared to yesterday. He still has generalized weakness. Patient was transferred out of the ICU yesterday evening. He is now on selective care and seems to be doing fairly well. He is more responsive. Still has very hard times articulating his speech. We will continue to follow his progress closely with infectious disease. We will continue close monitoring of this patient in the intensive care unit. His overall prognosis at this time remains very guarded. Objective - Vital Signs Vital signs: Vital Signs Temp 97.8 F 05/27/17 04:00 Pulse 106 H 05/27/17 08:59 Resp 18 05/27/17 04:00 BP 118/60 05/27/17 04:00 Pulse Ox 97 05/27/17 08:48 Intake & Output 05/26/17 05/27/17 05/27/17 18:59 06:59 18:59 Intake Total 1770 795 Output Total 920 225 Balance 850 570 Weight 73.3 kg 75 kg Intake: IV 750 600 Sodium Chloride 0.45% 1, 750 600 000 ml @ 75 mls/hr IV . [id number] [facility] Rx#:[id number] Tube Feeding 780 195 Other 240 Output: Urine 320 125 Stool 600 100 Other: Voiding Method Indwelling Catheter Indwelling Catheter # Voids 1 2 - Exam Physical examination: PHYSICAL EXAMINATION: Patient is resting comfortably in bed. Patient is somewhat lethargic but easily arousable. He does follow simple commands. His is at bedside. VITAL SIGNS: Blood pressure is [118/60]. Heart rate is [94]. Respiration is [18] . Temperature is [97.8]. HEENT: Head is atraumatic, neck is supple, there were no carotid bruits. CHEST: Lungs are clear to auscultation and percussion. CARDIAC: S1, S2 normal rate and rhythm. There is no murmur. ABDOMEN: Soft and nontender. Bowel sounds are present. EXTREMITIES: There is no pedal edema. Peripheral pulses are present. Neurological examination: Patient was transferred out of the intensive care unit yesterday. He is resting comfortably. He is alert and oriented 2. He is able to follow simple commands. He has generalized weakness. Deep tendon reflexes are 1+ and symmetric. Plantar responses flexor bilaterally. Coordination and gait cannot be assessed in this patient at this time. The patient is noted to have a breathing mask in place but does open his eyes to stimulation. He does follow some simple commands. - Labs CBC & Chem 7: 05/26/17 04:40 05/26/17 04:40 Assessment and Plan (1) Acute metabolic encephalopathy Status: Acute Code(s): G93.41 - METABOLIC ENCEPHALOPATHY (2) Gram-negative sepsis with organ dysfunction Status: Acute Code(s): A41.50 - GRAM-NEGATIVE SEPSIS, UNSPECIFIED; R65.20 - SEVERE SEPSIS WITHOUT SEPTIC SHOCK (3) Acute renal failure Status: Acute Code(s): N17.9 - ACUTE KIDNEY FAILURE, UNSPECIFIED (4) Febrile illness Status: Acute Code(s): R50.9 - FEVER, UNSPECIFIED Plan: This patient is a 82-year-old male who was initially admitted to Hospital with symptoms of increasing weakness and sepsis. Today he was on the medical floor and developed residual retention of his tube feedings. He then spiked a temperature of 101F. He then showed signs of severe hypotension. He was transferred to the intensive care unit this evening where he is now been examined. Patient was started on 5 mics of Levophed due to the hypotension. We have arranged for a stat computed tomography scan of the brain to be done this evening for further evaluation. The patient is afebrile at this time. He is being followed closely by infectious disease and Dr. Kenney for gram- negative sepsis. He is on antibiotic coverage. The patient continues to have low-grade temperature today of 100.8. He is also received 4 units of packed red cells due to severe anemia. The family has now decided to make the patient DO NOT RESUSCITATE CODE STATUS due to his complex medical history. The patient remains somewhat encephalopathic at this time. was updated on his overall neurological status and current condition. She is aware of his guarded condition. We will continue close neurological follow-up of this patient in the intensive care unit. His mental status has shown some improvement today. He is slightly more awake and able to answer some questions today. His neurological findings are consistent with a diffuse metabolic encephalopathy. As noted his CODE STATUS remains no code as per the family wishes. His overall prognosis at this time remains very guarded. Case was discussed yesterday at length with the patient's and son at bedside. All of their questions were answered. They are both aware of his guarded condition. The patient remains somewhat obtunded this evening. He does follow some simple commands. We are waiting further recommendations from infectious disease in regards to his sepsis. He does have underlying urinary tract infection with positive cultures for gram-negative bacilli in the E. coli. He is being followed closely by infectious disease. He is currently receiving antibiotics which include Polysporin and ertapenem. He remains afebrile this evening. The patient did undergo a follow-up EEG today for further evaluation of his overall cognitive function. His EEG remains very slow and consistent with moderate to severe encephalopathy. There is very little change compared to a previous EEG that was done on 05/20/2017. Patient is afebrile this morning. He was transferred out of the intensive care unit yesterday. He is resting comfortably in bed. He seems to be slightly more alert but still having a hard time articulating his speech. He is only able to say only a few words. His overall prognosis at this time remains very guarded. We will continue close neurological follow-up of this patient in the intensive care unit.
[2017-05-28] MEDS: SODIUM CHLORIDE 0.45% 1,000 ML IV SCH (06:08)
[2017-05-28 06:10] LABS: ALT 41 U/L (21-72); AST 72 U/L (17-59); Alkaline Phosphatase 142 U/L (38-126); Anion Gap 4 mmol/L; Anisocytosis Slight; Basophils # (A) 0.1 k/uL (0-0.2); Basophils % (A) 0 %; Blood Urea Nitrogen 40 mg/dL (9-20); CH 29.5; CHCM 30.5; Calcium 7.5 mg/dL (8.4-10.2); Carbon Dioxide 20 mmol/L (22-30); Chloride 115 mmol/L (98-107); Eosinophils # (A) 0.8 k/uL (0-0.7); Eosinophils % (A) 4 %; Glucose 87 mg/dL (74-99); HCT 28.1 % (39.0-53.0); HDW 3.38; HGB 8.9 gm/dL (13.0-17.5); Hypochromasia Marked; Luc # (Auto) 0.27; Luc % (Auto) 1; Lymphocytes # (A) 1.5 k/uL (1.0-4.8); Lymphocytes % (A) 8 %; MCH 30.8 pg (25.0-35.0); MCHC 31.5 g/dL (31.0-37.0); MCV 97.7 fL (80.0-100.0); Macrocytosis Slight; Mean Platelet Volume 9.8; Monocytes # (A) 0.8 k/uL (0-1.0); Monocytes % (A) 4 %; Neutrophils # (A) 16.3 k/uL (1.3-7.7); Neutrophils % (A) 83 %; Non-African American GFR(MDRD) >60 (>60 ml/min/1.73 sqM); Potassium 4.4 mmol/L (3.5-5.1); RBC 2.88 m/uL (4.30-5.90); RDW 17.7 % (11.5-15.5); Sodium 139 mmol/L (137-145); Total Bilirubin 0.4 mg/dL (0.2-1.3); Total Protein 4.7 g/dL (6.3-8.2); WBC 19.6 k/uL (3.8-10.6); WBC (Perox) 20.32
--- NOTE | 2017-05-28 07:50 | P.PN ---
Subjective Principal diagnosis: Anemia with continuing care. Objective - Vital Signs Vital signs: Vital Signs Temp 97.5 F L 05/28/17 03:43 Pulse 97 05/28/17 03:43 Resp 16 05/28/17 03:43 BP 130/67 05/28/17 03:43 Pulse Ox 96 05/28/17 03:43 Intake & Output 05/27/17 05/28/17 05/28/17 18:59 06:59 18:59 Intake Total 795 1395 Output Total 420 Balance 375 1395 Weight 74.8 kg Intake: IV 600 1200 Sodium Chloride 0.45% 1, 600 1200 000 ml @ 75 mls/hr IV . [id number] [facility] Rx#:[id number] Tube Feeding 195 195 Output: Urine 320 Stool 100 Other: Voiding Method Indwelling Catheter Indwelling Catheter - Constitutional General appearance: Present: average body habitus - EENT Eyes: Absent: abnormal pupil - Respiratory Respiratory: bilateral: diminished - Cardiovascular Heart sounds: normal: S1, S2 Abnormal Heart Sounds: Absent: S3 Gallop - Gastrointestinal General gastrointestinal: Absent: tenderness - Musculoskeletal Musculoskeletal: Present: generalized weakness - Psychiatric Psychiatric: Absent: A&O x's 3, intact judgment & insight - Labs CBC & Chem 7: 05/28/17 05:13 05/28/17 05:13 Labs: Abnormal Lab Results - Last 24 Hours (Table) 05/28/17 05/28/17 Range/Units 05:13 05:13 WBC 19.6 H (3.8-10.6) k/uL RBC 2.88 L (4.30-5.90) m/uL Hgb 8.9 L (13.0-17.5) gm/dL Hct 28.1 L (39.0-53.0) % RDW 17.7 H (11.5-15.5) % Neutrophils # 16.3 H (1.3-7.7) k/uL Eosinophils # 0.8 H (0-0.7) k/uL Chloride 115 H (98-107) mmol/L Carbon Dioxide 20 L (22-30) mmol/L BUN 40 H (9-20) mg/dL Calcium 7.5 L (8.4-10.2) mg/dL AST 72 H (17-59) U/L Alkaline Phosphatase 142 H (38-126) U/L Total Protein 4.7 L (6.3-8.2) g/dL Albumin 1.9 L (3.5-5.0) g/dL Microbiology - Last 24 Hours (Table) 05/26/17 18:26 Blood Culture - Preliminary Blood No Growth after 24 hours Assessment and Plan (1) Acute renal failure Status: Acute (2) Gram-negative sepsis with organ dysfunction Status: Acute (3) CVA (cerebral vascular accident) Status: Acute Plan: The patient is an 82-year-old white male essentially admitted for sepsis with altered mental status continued intermittent aspiration and anemia with tarry stools. The patient's prognosis guarded secondary to multiple comorbidities. Multiple consultations are noted including infectious disease, neurology, surgery and pulmonology. We'll repeat CBC and CMP in a.m. The patient is DO NOT RESUSCITATE. We'll continue to follow for possible transfer to ECF when stabilizing. Question element of palliative versus hospice care.
[2017-05-28] MEDS: BUDESONIDE 0.5 MG/2 ML NEBU INHALATION SCH ×2 (08:30→20:03)
[2017-05-28] MEDS: IPRATROPIUM-ALBUTEROL 3 ML NEB INHALATION SCH ×3 (08:30→20:03)
[2017-05-28] MEDS: PANTOPRAZOLE 40 MG/10 ML VIAL IVP SCH (09:05)
[2017-05-28] MEDS: BACITRACIN/POLYMYX 500-10,000 UNIT/GM OPHTH OINT 3.5 GM TUBE BOTH EYES SCH ×4 (09:06→21:13)
[2017-05-28] MEDS: ENOXAPARIN 40 MG/0.4 ML SYRINGE SQ SCH (09:06)
[2017-05-28] MEDS: METOPROLOL TARTRATE 50 MG TAB PO SCH ×3 (09:10→21:13)
[2017-05-28] MEDS: SUCRALFATE 1 GM TAB PO SCH ×4 (09:10→21:13)
[2017-05-28] MEDS: LORATADINE 10 MG TAB PO SCH (09:10)
[2017-05-28] MEDS: AMMONIUM LACTATE 12% LOTION 225 GM BTL TOPICAL SCH ×2 (09:11→21:13)
[2017-05-28] MEDS: ERTAPENEM 1 GM in SODIUM CHLORIDE 0.9% 50 ML IVPB SCH (09:20)
--- NOTE | 2017-05-28 09:26 | PN ---
PROGRESS NOTE DATE OF SERVICE: 05/27/2017 I am covering for Dr. Anderson. This 82-year-old gentleman who was admitted with ESBL E coli and sepsis has multiple complex medical issues. The patient continues to be drowsy. Patient also has suspicion of aspiration also. The patient has PEG tube feedings also. Neurology and pulmonology following the patient closely. PAST MEDICAL HISTORY: Reviewed. REVIEW OF SYSTEMS: Could not be taken, the patient is stuporous. CURRENT MEDICATIONS: 1. Tylenol 650 q.4h p.r.n. 2. Emerson elixir. 3. DuoNeb q.i.d. and p.r.n. 4. Polysporin. 5. Pulmicort. 6. Valium 2.5 q8 p.r.n. 7. Lovenox. 8. Ertapenem 1g IV daily. 9. Claritin. 10.Ativan. 11.Lopressor. 12.Replacement protocols. 13.Protonix 40 daily. 14.Carafate 1 g p.o. q.i.d. PHYSICAL EXAM: Patient is stuporous. Pulse is 102, blood pressure 126/60, respiration 18, temperature 98.4, pulse ox 97% on 4 L. HEENT: Conjunctivae normal. Oral mucosa moist. NECK: No jugular venous distention. No carotid bruit. No lymph node enlargement. CARDIOVASCULAR: S1, S2. No S3. no S4. RESPIRATORY: Breath sounds diminished especially in the bases. Bilateral scattered rhonchi and crackles. ABDOMEN: Soft, nontender. No mass palpable. LEGS: No edema. NERVOUS SYSTEM: Diffusely weak. LAB DATA: WBC 17.1, hemoglobin 11.9, sodium 140, potassium 4.3. ASSESSMENT: 1. Acute urinary tract infection with sepsis, ESBL Escherichia coli present on admission. 2. Acute renal failure. 3. Change in mental status, metabolic encephalopathy, acute. 4. Gram-negative sepsis. sinus tachycardia 5. History of cerebrovascular accident, transient ischemic attack. 6. Hypernatremia, improved. 7. Status post PEG tube placement. 8. Anemia, possibly acute blood-loss anemia from gastrointestinal tract bleeding. 9. Increased WBC. 10.Hypoalbuminemia with severe protein calorie malnutrition. 11.NO CODE, NO CPR, NO VENT. RECOMMENDATIONS AND DISCUSSION: Continue current medication, continue to monitor, continue symptomatic treatment. Continue with broad-spectrum IV antibiotics. Repeat cultures are pending at this time. Otherwise, I have requested re-evaluation by Infectious Disease. Continue the rest of the medication. Aspiration precautions, head of the bed raised to 45 degree. Continue the tube feeds. Discussed with staff. Further recommendations to follow. The patient is no code, and CPR, no vent. Dr. Anderson's will follow. SABRINA / PETER: [id number] / MTDD
--- NOTE | 2017-05-28 10:43 | CDI ---
In responding to this query, please exercise your independent professional judgment. The [facility] Coding Staff and Clinical Documentation Specialists appreciate your assistance in clarifying documentation, maintaining compliance with coding guidelines, accurately documenting patients condition and capturing severity of illness. The fact that a question is asked does not imply that any particular answer is desired or expected. Communication forms are a method of clarifying documentation and are not made part of the Legal Health Record. Thank you in advance for your clarification. Last Revision, July 2015 July Swan [address] [address] Documentation Clarification Form Date: 05/28/2017 10:35:00 AM From: Carol Ann Nieves CCS, CCDS Admit Date: 05/02/2017 7:07:00 PM Patient Name: Franco Hill Visit Number: [id number] Discharge Date: Dr. Deshawn Hunt: Atrial fibrillation is documented in the 05/05 attending progress note as "possible atrial fibrillation". History/Risk Factors: CVA, TIA, hypertension. Clinical Indicators: 82 yo male presented with diarrhea, found to be in acute renal failure, UTI & Sepsis. EKG/telemetry: EKG #1 05/02: R 89 sinus rhythm w/occasional PVCs. EKG #2 05/02: R 134 undetermined rhythm. Treatment: ICU, telemetry, IV fluids, IV Mag Sulfate, IV antibiotics, IV Lopressor, IV Cardizem, IV Lasix, )2. Consults: Cardiology (no documented Atrial Fibrillation) In your professional opinion, can you please clarify the type of atrial fibrillation, if known? Chronic/Permanent Paroxysmal Persistent Other, please specify Unable to determine Please document in your progress notes and discharge summary in order to capture severity of illness and risk of mortality. Include clinical findings that support your diagnosis. NO afib- sinus tachycardia only FYI: Press F11 to launch patient chart MTDD
--- NOTE | 2017-05-28 16:19 | P.PN ---
Subjective Principal diagnosis: Patient seen and evaluated exam and clinically patient is doing well in terms of breathing is still issues associated with swallowing dysfunction is present patient has been found ESBL E. coli UTI antibiotics are adjusted by the infectious disease services hemodynamic status stable 05/08/17- This is an 82-year-old male patient who came into the emergency department on 05/02/2017 from an extended care facility. Patient was noted to have a potassium of 6.4 at the extended care facility and therefore they sent him over. The patient did not have any further complaints and he has intermittent confusion which is his baseline. EKG performed in the emergency room did show sinus rhythm with occasional PVCs, patient had no ST segment elevation or depression or T-wave abnormalities. The patient was put on lactulose. Hypertension is also being worked up for possible rectal mass and will undergo colonoscopy when stable with Dr. Piña. All labs and reports have been reviewed. Patient is being seen and examined today on the sixth floor for pulmonary services related to progression of shortness of breath over the last few days. He has had a cough however denies any congestion. Nursing staff has denied any sputum production. He is alert and oriented 1 with intermittent confusion. Has been afebrile. Currently is on 3 L of supplemental oxygen via nasal cannula. It is unclear if the patient utilized oxygen in the extended care facility setting. Patient is also on a mechanical soft diet with aspiration precautions. 05/09/17- this patient is being evaluated and examined and seen on rounds today. All labs and reports were reviewed. The patient hyperkalemia has improved. The white blood cell count has come down to 12.8. Patient was noted to have increased lethargy and decreased cognition yesterday afternoon therefore a neurology consult was initiated. Patient is going for a CT of the brain as well as an EEG today. Patient's speech is noted to be slightly slurred and mumbled. Overnight he was noted to refuse care, had increase in agitation, and was refusing food and fluids. and primary care were updated. 05/10/17- this patient is being evaluated exam and seen today on the selective care unit. All labs and reports have been reviewed. Patient appears more awake today than previously. Patient did undergo a CT of the brain and EEG yesterday. Neurology and nephrology is on consult. Patient's prognosis is guarded and he has multiple comorbidities. Upon examination the patient's resting up in bed on room air states he occasionally has shortness of breath with exertion. He denies any cough or congestion at this time. Discharge planning is in process and appears the patient will go back to extended care facility when discharged. 05/11/17- patient is being seen in evaluated and examined today on the fifth floor. Patient is known to be slightly tired however is easily awoken. Currently he is resting up in bed on room air. Patient noticed to have a faint light red flat erythema rash to his right lateral chest. He denies any itching or pain. The area is small and diffuse. We will continue to monitor this. He does have Lotrisone cream for the area. On examination he denies any shortness of breath cough or congestion. Family at bedside updated on plan of care. 05/12/17- patient is being seen examined and evaluated today on the floor. The patient continues to be tired however is easily aroused upon examination. No further progression is noted of his rash to the right lateral chest. On examination patient's resting up in bed on room air. Shortness of breath as noted with exertion. Intermittent cough. He is afebrile, no overnight events. 05/13/17- patient is being seen examined and evaluated today on the floor. On examination the patient is resting in bed on room air, continues with shortness of breath on exertion. According to the nursing staff during breakfast the patient was coughing and choking and has dysphagia diet. Continue swallow evaluation with speech therapy has been ordered. 05/08/17- This is an 82-year-old male patient who came into the emergency department on 05/02/2017 from an extended care facility. Patient was noted to have a potassium of 6.4 at the extended care facility and therefore they sent him over. The patient did not have any further complaints and he has intermittent confusion which is his baseline. EKG performed in the emergency room did show sinus rhythm with occasional PVCs, patient had no ST segment elevation or depression or T-wave abnormalities. The patient was put on lactulose. Hypertension is also being worked up for possible rectal mass and will undergo colonoscopy when stable with Dr. Piña. All labs and reports have been reviewed. Patient is being seen and examined today on the sixth floor for pulmonary services related to progression of shortness of breath over the last few days. He has had a cough however denies any congestion. Nursing staff has denied any sputum production. He is alert and oriented 1 with intermittent confusion. Has been afebrile. Currently is on 3 L of supplemental oxygen via nasal cannula. It is unclear if the patient utilized oxygen in the extended care facility setting. Patient is also on a mechanical soft diet with aspiration precautions. 05/09/17- this patient is being evaluated and examined and seen on rounds today. All labs and reports were reviewed. The patient hyperkalemia has improved. The white blood cell count has come down to 12.8. Patient was noted to have increased lethargy and decreased cognition yesterday afternoon therefore a neurology consult was initiated. Patient is going for a CT of the brain as well as an EEG today. Patient's speech is noted to be slightly slurred and mumbled. Overnight he was noted to refuse care, had increase in agitation, and was refusing food and fluids. and primary care were updated. 05/10/17- this patient is being evaluated exam and seen today on the selective care unit. All labs and reports have been reviewed. Patient appears more awake today than previously. Patient did undergo a CT of the brain and EEG yesterday. Neurology and nephrology is on consult. Patient's prognosis is guarded and he has multiple comorbidities. Upon examination the patient's resting up in bed on room air states he occasionally has shortness of breath with exertion. He denies any cough or congestion at this time. Discharge planning is in process and appears the patient will go back to extended care facility when discharged. 05/11/17- patient is being seen in evaluated and examined today on the fifth floor. Patient is known to be slightly tired however is easily awoken. Currently he is resting up in bed on room air. Patient noticed to have a faint light red flat erythema rash to his right lateral chest. He denies any itching or pain. The area is small and diffuse. We will continue to monitor this. He does have Lotrisone cream for the area. On examination he denies any shortness of breath cough or congestion. Family at bedside updated on plan of care. 05/12/17- patient is being seen examined and evaluated today on the floor. The patient continues to be tired however is easily aroused upon examination. No further progression is noted of his rash to the right lateral chest. On examination patient's resting up in bed on room air. Shortness of breath as noted with exertion. Intermittent cough. He is afebrile, no overnight events. 05/13/17- patient is being seen examined and evaluated today on the floor. On examination the patient is resting in bed on room air, continues with shortness of breath on exertion. According to the nursing staff during breakfast the patient was coughing and choking and has dysphagia diet. Continue swallow evaluation with speech therapy has been ordered. 05/14/17-05/19/[address] Valverde's dictations 05/20/17- patient is being seen examined and evaluated today in the intensive care unit. Currently the patient is resting up in bed on 2 L of supplemental oxygen via nasal cannula. Patient continues to be tachycardic and oxygen dependent. Patient did undergo a procedure for PEG tube and is currently tolerating tube feeds. Chest x-ray has been reviewed from this morning and does show a correlation for CHF, underlying pneumonia not excluded. Upon examination the patient's vasopressors are on hold. We are trying to wean the patient off of pressors at this time. 05/21/17- patient is being seen examined and evaluated today in the intensive care unit. Patient has been noted to have significant tachycardia with episodes of hypotension, he was noted to have increased bowel movements that were loose and dark. Occult blood was sent to lab and came back positive. The patient had FMF in place. Surgical has been updated. Hemoglobin noted to drop from 8.6 this morning now down to 7.3. Orders given for 2 units of packed red blood cells as well as consult interventional radiology for PICC line insertion. chest x-ray from this afternoon revealed improved variation in both lung bases. 05/22/17- patient seen and examined in the ICU remains hypertensive but intermittent continue to have episodes of tachycardia the beta blockers are being used cautiously currently patient heart rate is about 150-160 and appears to be sinus tachycardia Cardizem drip is not working so is being discontinued patient is on IV Lopressor has been on by mouth Lopressor as well he has been transfused with packed RBC indexes of bleeding that has been seen overnight has appears to settle down patient slightly more awake now family is present at bedside care plan discussed with them the advice to proceed with a DO NOT RESUSCITATE CODE STATUS, patient is status post PICC line placement 05/23/17- patient is being seen examined and evaluated today in the intensive care unit. Patient has received a total of 4 units of packed red blood cells. Hemoglobin is noted to drop from 11.8 to 9.4 today. Surgery is also on consult , however he has a high risk candidate. His fecal management system is in place and the stools look less maroon today than previous. He continues to have intermittent confusion. His sodium was noted to be 155 today, as well as a chloride of 129. We have increased his free water flushes via PEG tube to 250 ML's every 6. Upon examination the patient's resting up in bed on 3 L of supplemental oxygen via nasal cannula. He continues to have a dry cough. Currently he is afebrile, no further complaints. The patient was seen again today 05/24/2017 in follow-up in the intensive care unit. We are covering for Dr. Valverde today. The patient remains a poor historian and mainly nonverbal. He is maintaining good O2 saturations in the mid to upper 90s on 2 L/m per nasal cannula. He's been afebrile. Somewhat tachycardic with heart rate in the 110-120's. He is status post 4 units of packed red blood cells this admission. His current hemoglobin is 8.7. He has a FMF as in place with some dark tarry stools. Surgical services are on the case. Repeat blood cultures reveal no growth to date. White count remains high at 23.5. Sodium is improved to 146. Creatinine 1.20. The patient was seen again today 05/25/2017 in follow-up in the intensive care unit. We are covering for Dr. Valverde again today. The patient status remains about the same. He is oriented times one at times. He is mostly nonverbal. His white count is trending down currently at 19.7. Hemoglobin 8.0. Sodium 147 , creatinine 1.29. He's been off pressors for several days now. Current temp 99.0 axillary. He remains on ertapenem. On 05/26/2017 I'm seeing this patient in follow-up in the intensive care unit. Unfortunately, not a lot of progress has been done on this patient. He was seen by Dr. Valverde and his primary care physician is Dr. Anderson. I'm covering this patient for Dr. Valverde regarding his ICU care. The patient is quite debilitated. His rest comfortably in bed. He does not initiate a conversation. He states most of the time. He is alert and oriented only 1, which is to self. He is receiving enteral feeding for nutritional support and he seems to be tolerating the feeds is currently at goal at 65 mL an hour. He is being treated for ESBL urine checked infection and is currently on ertapenem. He is afebrile. On and off she is having rounds of itching fibrillation. For the most part he is in sinus tachycardia with a heart rate in the low 100s. His hemoglobin is stable at 7.9. His white cell count is gradually improving is down to 17.2. He is receiving broncho-dilators around- the-clock. Aspiration precaution. Lovenox for DVT prophylaxis. He is on no pressors. Metoprolol is being utilized 50 mg by mouth 3 times a day. He is on no pressors. The EEG was done yesterday and showed no evidence of any seizure and there is diffuse widespread disturbance in cerebral function consistent with diffuse slowing. The patient was seen by neurology. As mentioned earlier the patient is arousable however he is not coherent, and he does not follow commands or hold a conversation. He remains quite obtunded and encephalopathic. There is obviously multifactorial. Metabolic encephalopathy due to underlying sepsis is thought to be contributing to this. His latest CAT scan of the brain showed stable generalized atrophy and small vessel ischemic changes with encephalomalacia on the right cerebellar hemisphere. The FMF is still in place. No active bleeding from his rectum at this point. Patient seen and evaluated examined on 6 floor he is awake but remains nonverbal and noncommunicative with intermittent anxiety and apprehension hemodynamic status is marginal but stable patient remains very debilitated oriented 1 as well remains on broad-spectrum antibiotics no evidence of active bleeding is seen, patient is out of ICU to stepdown unit Objective - Vital Signs Vital signs: Vital Signs Temp 98.8 F 05/28/17 08:45 Pulse 100 05/28/17 12:58 Resp 16 05/28/17 08:00 BP 129/67 05/28/17 08:45 Pulse Ox 97 05/28/17 08:45 Intake & Output 05/27/17 05/28/17 05/28/17 18:59 06:59 18:59 Intake Total 795 1395 65 Output Total 420 400 Balance 375 1395 -335 Weight 74.8 kg 74.8 kg Intake: IV 600 1200 Sodium Chloride 0.45% 1, 600 1200 000 ml @ 75 mls/hr IV . [id number] [facility] Rx#:[id number] Tube Feeding 195 195 65 Output: Urine 320 300 Stool 100 100 Other: Voiding Method Indwelling Catheter Indwelling Catheter Indwelling Catheter - Exam GENERAL EXAM: Alert, intermittent confusion noted which is baseline, comfortable in no apparent distress. HEAD: Normocephalic. EYES: Normal reaction of pupils, equal size. NOSE: Clear with pink turbinates. THROAT: No erythema or exudates. NECK: No masses, no JVD. CHEST: No chest wall deformity. LUNGS: Equal air entry with no crackles, wheeze, rhonchi or dullness. Breath sounds decreased bilaterally. CVS: S1 and S2 normal with no audible mumurs, regular rhythm. ABDOMEN: No hepatosplenomegaly, normal bowel sounds, no guarding or rigidity. PEG tube in place clean dry and intact, FMS in place EXTREMITIES: +2 edema noted, pedal pulses palpable. Chronic skin changes noted , bilateral legs wrapped SKIN: Multiple skin tears, flat erythema diffuse rash to right lateral chest, cream applied CENTRAL NERVOUS SYSTEM: No focal deficits, moves all 4 extremities. - Labs CBC & Chem 7: 05/28/17 05:13 05/28/17 05:13 Labs: Abnormal Lab Results - Last 24 Hours (Table) 05/28/17 05/28/17 Range/Units 05:13 05:13 WBC 19.6 H (3.8-10.6) k/uL RBC 2.88 L (4.30-5.90) m/uL Hgb 8.9 L (13.0-17.5) gm/dL Hct 28.1 L (39.0-53.0) % RDW 17.7 H (11.5-15.5) % Neutrophils # 16.3 H (1.3-7.7) k/uL Eosinophils # 0.8 H (0-0.7) k/uL Chloride 115 H (98-107) mmol/L Carbon Dioxide 20 L (22-30) mmol/L BUN 40 H (9-20) mg/dL Calcium 7.5 L (8.4-10.2) mg/dL AST 72 H (17-59) U/L Alkaline Phosphatase 142 H (38-126) U/L Total Protein 4.7 L (6.3-8.2) g/dL Albumin 1.9 L (3.5-5.0) g/dL Microbiology - Last 24 Hours (Table) 05/26/17 18:26 Blood Culture - Preliminary Blood No Growth after 24 hours Assessment and Plan Plan: Assessment Supraventricular tachycardia likely related to the intravascular water depletion dehydration and anemia with ongoing intermittent GI loss Recurrent intermittent aspiration with episodes of silent aspiration patient is status post PEG tube placement Urinary tract infection, culture positive for gram negatives bacilli and E. coli , which appears to be ESBL, IVS adjust antibiotics Sepsis with fever, gram-negative Acute hypoxic respiratory failure Hyperkalemia, improved Acute renal failure Urinary tract infection, culture positive for gram negatives bacilli and E. coli Hypernatremia likely related to decreased oral intake Probable rectal mass, currently being worked up Diarrhea History of CVA Hypotension Plan Continue proton pump inhibitors patient is not interested to undergo aggressive diagnostic evaluation slight improvement in general clinical condition has been noted see orders for detail Medications have been reviewed and will be continued as ordered. Patient's prognosis is guarded. Patient is a status post PICC line. Patient will receive 2 units packed red blood cells for drop in hemoglobin as well as occult stool positive, if hemoglobin repeat comes back less than 7. Surgical has been updated, and therefore living closely. Patient known to be resistive to care and medical treatment. Continue to monitor electrolytes. Patient will undergo colonoscopy once cleared , in the outpatient setting. Continue with pulmonary hygiene, coughing and deep breathing exercises, and supportive care. Supplemental oxygen to maintain oxygen saturations of 92% or better. Continue nebulizer treatments in the form of DuoNeb and budesonide. . GI and DVT prophylaxis. Appreciate consults recommendations. Patient is currently being worked up for discharge planning to extended care facility. We will continue to monitor labs/results and adjust treatment as necessary. Further recommendations pending., Time with Patient: Greater than 30
--- NOTE | 2017-05-28 20:24 | P.PN ---
Subjective Franco Hill is a 82-year-old right-handed white male who was initially admitted to [facility] on 05/02/2017 for evaluation of sepsis and weakness. Patient was seen in neurology consultation initially back on . He was found to have evidence at that time of diffuse metabolic encephalopathy and acute renal failure. He was also being treated for gram- negative sepsis with organ dysfunction. He has been seen by infectious disease and is followed by Dr. Kenney. The patient apparently was started on symptom feedings early this afternoon and had significant residuals averaging 65 200 mL. The patient also spiked a temperature this afternoon to 101 degrees Fahrenheit. He developed symptoms of hypotension which persisted. Patient was transferred to the intensive care unit where he is now being seen in neurology follow-up. The patient is resting comfortably. He does not appear to be in acute pain. He is able to follow some simple commands. His temperature is now back to normal and is noted to be orally at 97.9. The patient was started on 5 mics of Levophed due to the severe hypotension. His CODE STATUS as per family remains full CODE STATUS at this time. Due to the change in his level of function we have recommended a stat computed tomography scan of the brain to be done this evening to rule out any acute intracranial lesion or other abnormalities. We will also plan to get a follow-up EEG for the patient tomorrow morning. Case was discussed today at length with Dr. Kenney from infectious disease who agrees with our current treatment plan. The patient developed severe anemia today and did require 2 units of packed red cells for treatment. His hemoglobin had dropped to 7.3. Apparently later this evening he developed maroon-colored stools and did require 2 more units of packed red cells. Patient also this evening has developed a low-grade temperature of 100.8. We will await further recommendations from infectious disease. According to the ICU nurse the family has now made the patient DO NOT RESUSCITATE CODE STATUS. His was at bedside and she was updated on his overall poor prognosis and his current neurological condition. She is aware of his very guarded condition at this time. Apparently he has been opening his eyes but has very little verbal output when family is at bedside. He has shown some improvement this evening in terms of his overall mental status. He is opening his eyes and does say a few words. According to the ICU nursing staff he was more alert this morning. Towards the end of the day he becomes more lethargic. He does easily arouses evening in the ICU. He is following only simple commands. He has remained relatively stable today in terms of his hemodynamics. He continues to remain slightly tachycardic and his current hemoglobin is 8.0. His hemoglobin continues to drop slowly. As noted surgery is aware of his condition. He has had some dark tarry stools today as well. Surgical services are on his case. So far his blood cultures have remained negative. His white count remains elevated at 23.5 today. Patient is noted to be using breathing treatment this evening and apparently has been less responsive late this evening. Patient is afebrile today. He had a fever yesterday evening. Infectious disease is following the patient. Patient does follow some simple commands today. He is less obtunded as compared to yesterday. He still has generalized weakness. Patient was transferred out of the ICU a few days ago. He is now on selective care and seems to be doing fairly well. He is more responsive. Still has very hard time articulating his speech. He is currently undergoing a breathing treatment. According to the respiratory therapist he has 3 treatments daily. We will continue to follow his progress closely with infectious disease. Patient remains anemic. His hemoglobin today is 8.9. His CODE STATUS is now DO NOT RESUSCITATE. He is being considered for possible transfer to [facility] when he is medically stable. We will continue close monitoring of this patient in the intensive care unit. His overall prognosis at this time remains very guarded. Objective - Vital Signs Vital signs: Vital Signs Temp 98.3 F 05/28/17 16:00 Pulse 100 05/28/17 16:00 Resp 16 05/28/17 16:00 BP 130/61 05/28/17 16:00 Pulse Ox 95 05/28/17 12:00 Intake & Output 05/27/17 05/28/17 05/28/17 18:59 06:59 18:59 Intake Total 795 1395 195 Output Total 420 400 Balance 375 1395 -205 Weight 74.8 kg 74.8 kg Intake: IV 600 1200 Sodium Chloride 0.45% 1, 600 1200 000 ml @ 75 mls/hr IV . [id number] [facility] Rx#:[id number] Tube Feeding 195 195 195 Output: Urine 320 300 Stool 100 100 Other: Voiding Method Indwelling Catheter Indwelling Catheter Indwelling Catheter - Exam Physical examination: PHYSICAL EXAMINATION: Patient is resting comfortably in bed. Patient is somewhat lethargic but easily arousable. He does follow simple commands. His is at bedside. VITAL SIGNS: Blood pressure is [130/61]. Heart rate is [100]. Respiration is [16 ]. Temperature is [98.3]. HEENT: Head is atraumatic, neck is supple, there were no carotid bruits. CHEST: Lungs are clear to auscultation and percussion. CARDIAC: S1, S2 normal rate and rhythm. There is no murmur. ABDOMEN: Soft and nontender. Bowel sounds are present. EXTREMITIES: There is no pedal edema. Peripheral pulses are present. Neurological examination: Patient was transferred out of the intensive care unit yesterday. He is resting comfortably. He is alert and oriented 2. He is able to follow simple commands. He has generalized weakness. Deep tendon reflexes are 1+ and symmetric. Plantar responses flexor bilaterally. Coordination and gait cannot be assessed in this patient at this time. The patient is noted to have a breathing mask in place but does open his eyes to stimulation. He does follow some simple commands. - Labs CBC & Chem 7: 05/28/17 05:13 05/28/17 05:13 Labs: Abnormal Lab Results - Last 24 Hours (Table) 05/28/17 05/28/17 Range/Units 05:13 05:13 WBC 19.6 H (3.8-10.6) k/uL RBC 2.88 L (4.30-5.90) m/uL Hgb 8.9 L (13.0-17.5) gm/dL Hct 28.1 L (39.0-53.0) % RDW 17.7 H (11.5-15.5) % Neutrophils # 16.3 H (1.3-7.7) k/uL Eosinophils # 0.8 H (0-0.7) k/uL Chloride 115 H (98-107) mmol/L Carbon Dioxide 20 L (22-30) mmol/L BUN 40 H (9-20) mg/dL Calcium 7.5 L (8.4-10.2) mg/dL AST 72 H (17-59) U/L Alkaline Phosphatase 142 H (38-126) U/L Total Protein 4.7 L (6.3-8.2) g/dL Albumin 1.9 L (3.5-5.0) g/dL Microbiology - Last 24 Hours (Table) 05/26/17 18:26 Blood Culture - Preliminary Blood No Growth after 24 hours Assessment and Plan (1) Acute metabolic encephalopathy Status: Acute Code(s): G93.41 - METABOLIC ENCEPHALOPATHY (2) Gram-negative sepsis with organ dysfunction Status: Acute Code(s): A41.50 - GRAM-NEGATIVE SEPSIS, UNSPECIFIED; R65.20 - SEVERE SEPSIS WITHOUT SEPTIC SHOCK (3) Acute renal failure Status: Acute Code(s): N17.9 - ACUTE KIDNEY FAILURE, UNSPECIFIED (4) Febrile illness Status: Acute Code(s): R50.9 - FEVER, UNSPECIFIED Plan: This patient is a 82-year-old male who was initially admitted to Hospital with symptoms of increasing weakness and sepsis. Today he was on the medical floor and developed residual retention of his tube feedings. He then spiked a temperature of 101F. He then showed signs of severe hypotension. He was transferred to the intensive care unit this evening where he is now been examined. Patient was started on 5 mics of Levophed due to the hypotension. We have arranged for a stat computed tomography scan of the brain to be done this evening for further evaluation. The patient is afebrile at this time. He is being followed closely by infectious disease and Dr. Kenney for gram- negative sepsis. He is on antibiotic coverage. The patient continues to have low-grade temperature today of 100.8. He is also received 4 units of packed red cells due to severe anemia. The family has now decided to make the patient DO NOT RESUSCITATE CODE STATUS due to his complex medical history. The patient remains somewhat encephalopathic at this time. was updated on his overall neurological status and current condition. She is aware of his guarded condition. We will continue close neurological follow-up of this patient in the intensive care unit. His mental status has shown some improvement today. He is slightly more awake and able to answer some questions today. His neurological findings are consistent with a diffuse metabolic encephalopathy. As noted his CODE STATUS remains no code as per the family wishes. His overall prognosis at this time remains very guarded. Case was discussed yesterday at length with the patient's and son at bedside. All of their questions were answered. They are both aware of his guarded condition. The patient remains somewhat obtunded this evening. He does follow some simple commands. We are waiting further recommendations from infectious disease in regards to his sepsis. He does have underlying urinary tract infection with positive cultures for gram-negative bacilli in the E. coli. He is being followed closely by infectious disease. He is currently receiving antibiotics which include Polysporin and ertapenem. He remains afebrile this evening. The patient did undergo a follow-up EEG today for further evaluation of his overall cognitive function. His EEG remains very slow and consistent with moderate to severe encephalopathy. There is very little change compared to a previous EEG that was done on 05/20/2017. Patient is afebrile this morning. He was transferred out of the intensive care unit yesterday. He is resting comfortably in bed. He seems to be slightly more alert but still having a hard time articulating his speech. He is only able to say only a few words. His overall prognosis at this time remains very guarded. The patient continues to remain anemic with a hemoglobin of 8.9 today. The patient's CODE STATUS is DO NOT RESUSCITATE. Patient is being considered for possible ECF placement once he is medically stable. His overall prognosis at this time remains guarded. We will continue close neurological follow-up of this patient during this admission.
--- NOTE | 2017-05-28 21:52 | P.PN ---
Subjective Principal diagnosis: sepsis 82-year-old male resident of [facility] was found evidence of multiple abnormal labs included acute renal failure and hyperkalemia. The patient was transferred from the [facility] for further intervention. Infectious diseases consultation was requested when the patient developed a high-grade fever reportedly over 104. the consult was initiated as the patient became febrile, hypotensive and tachycardic. The patient is a poor historian. The patient today is a bit more comfortable than reported last evening. He relates that he has minimal hunger. His mouth is dry. As related lactic acid was drawn which was elevated and had evidence of leukocytosis, the patient was given fluids and antibiotic therapy with Zosyn given the concerns to urinary system as well as potential abdominal source since he was having some diarrhea. As the patient is slightly more comfortable. Has been seen by surgery and is being monitored for a potential colonoscopy in the future. Regarding ongoing treatment for the colonic abscess. No complaints except for fatigue.. As noted there is been the difficulty with his nutrition. Concerns of an aspiration event. PEG tube is been placed and is being utilized at this time under the supervision of surgery. Remains confused. Objective - Vital Signs Vital signs: Vital Signs Temp 98.3 F 05/28/17 16:00 Pulse 100 05/28/17 20:16 Resp 16 05/28/17 16:00 BP 130/61 05/28/17 16:00 Pulse Ox 95 05/28/17 12:00 Intake & Output 05/28/17 05/28/17 05/29/17 06:59 18:59 06:59 Intake Total 1395 195 Output Total 400 Balance 1395 -205 Weight 74.8 kg 74.8 kg Intake: IV 1200 Sodium Chloride 0.45% 1, 1200 000 ml @ 75 mls/hr IV . [id number] Rx#:[id number] Tube Feeding 195 195 Output: Urine 300 Stool 100 Other: Voiding Method Indwelling Catheter Indwelling Catheter - Exam 82-year-old male poor historian HEENT: Anicteric conjunctiva are pink and mildly crusty nasal mucosa grossly intact without significant lesions, there is no thrush but the oral cavity is very dry Neck: The neck is supple with no nuchal rigidity, without significant lymphadenopathy or thyromegaly. Lungs: There is symmetrical air entry. Scattered wheezes and basilar crackles are noted. Heart: Irregular with soft S4 no distinct murmur click or rub Abdomen: Positive bowel sounds soft and nontender without palpable masses or organomegaly. There was no guarding or rebound. PEG tube site is intact without erythema or drainage Extremities: The extremities have some minimal trace edema but no significant lesions are seen in the upper extremities. The lower extremities have evidence of the extensive skin lesion the bilateral lower extremities. There is a healing left hip incision which is without erythema crepitance or fluctuance. There is some erythema to the buttocks area. Neuro: Arousable, speech content is poor and inconsistent can poorly understandable he however does move arms and legs spontaneously Prior skin rash the chest and abdominal wall have resolved - Labs CBC & Chem 7: 05/28/17 05:13 05/28/17 05:13 Labs: Abnormal Lab Results - Last 24 Hours (Table) 05/28/17 05/28/17 Range/Units 05:13 05:13 WBC 19.6 H (3.8-10.6) k/uL RBC 2.88 L (4.30-5.90) m/uL Hgb 8.9 L (13.0-17.5) gm/dL Hct 28.1 L (39.0-53.0) % RDW 17.7 H (11.5-15.5) % Neutrophils # 16.3 H (1.3-7.7) k/uL Eosinophils # 0.8 H (0-0.7) k/uL Chloride 115 H (98-107) mmol/L Carbon Dioxide 20 L (22-30) mmol/L BUN 40 H (9-20) mg/dL Calcium 7.5 L (8.4-10.2) mg/dL AST 72 H (17-59) U/L Alkaline Phosphatase 142 H (38-126) U/L Total Protein 4.7 L (6.3-8.2) g/dL Albumin 1.9 L (3.5-5.0) g/dL Microbiology - Last 24 Hours (Table) 05/26/17 18:26 Blood Culture - Preliminary Blood No Growth after 48 hours Laboratory Results WBC 19.6 k/uL (3.8-10.6) H 05/28/17 05:13 RBC 2.88 m/uL (4.30-5.90) L 05/28/17 05:13 Hgb 8.9 gm/dL (13.0-17.5) L 05/28/17 05:13 Hct 28.1 % (39.0-53.0) L 05/28/17 05:13 MCV 97.7 fL (80.0-100.0) 05/28/17 05:13 MCH 30.8 pg (25.0-35.0) 05/28/17 05:13 MCHC 31.5 g/dL (31.0-37.0) 05/28/17 05:13 RDW 17.7 % (11.5-15.5) H 05/28/17 05:13 Plt Count 398 k/uL (150-450) 05/28/17 05:13 Neutrophils % 83 % 05/28/17 05:13 Neutrophils % (Manual) 88 % 05/24/17 04:50 Lymphocytes % 8 % 05/28/17 05:13 Lymphocytes % (Manual) 6 % 05/24/17 04:50 Monocytes % 4 % 05/28/17 05:13 Monocytes % (Manual) 4 % 05/24/17 04:50 Eosinophils % 4 % 05/28/17 05:13 Eosinophils % (Manual) 2 % 05/24/17 04:50 Basophils % 0 % 05/28/17 05:13 Neutrophils # 16.3 k/uL (1.3-7.7) H 05/28/17 05:13 Neutrophils # (Manual) 20.68 k/uL (1.3-7.7) H 05/24/17 04:50 Lymphocytes # 1.5 k/uL (1.0-4.8) 05/28/17 05:13 Lymphocytes # (Manual) 1.41 k/uL (1.0-4.8) 05/24/17 04:50 Monocytes # 0.8 k/uL (0-1.0) 05/28/17 05:13 Monocytes # (Manual) 0.94 k/uL (0-1.0) 05/24/17 04:50 Eosinophils # 0.8 k/uL (0-0.7) H 05/28/17 05:13 Eosinophils # (Manual) 0.47 k/uL (0-0.7) 05/24/17 04:50 Basophils # 0.1 k/uL (0-0.2) 05/28/17 05:13 Nucleated RBCs 1 /100 WBC (0-0) H 05/24/17 04:50 Manual Slide Review Performed 05/24/17 04:50 Polychromasia Present 05/24/17 04:50 Hypochromasia Marked 05/28/17 05:13 Poikilocytosis Slight 05/24/17 04:50 Anisocytosis Slight 05/28/17 05:13 Macrocytosis Slight 05/28/17 05:13 PT 11.9 sec (9.0-12.0) 05/19/17 15:46 INR 1.2 (<1.2) H 05/19/17 15:46 APTT 27.9 sec (22.0-30.0) 05/19/17 15:46 Sodium 139 mmol/L (137-145) 05/28/17 05:13 Potassium 4.4 mmol/L (3.5-5.1) 05/28/17 05:13 Chloride 115 mmol/L (98-107) H 05/28/17 05:13 Carbon Dioxide 20 mmol/L (22-30) L 05/28/17 05:13 Anion Gap 4 mmol/L 05/28/17 05:13 BUN 40 mg/dL (9-20) H 05/28/17 05:13 Creatinine 1.00 mg/dL (0.66-1.25) 05/28/17 05:13 Est GFR (MDRD) Af Amer >60 (>60 ml/min/1.73 sqM) 05/28/17 05:13 Est GFR (MDRD) Non-Af >60 (>60 ml/min/1.73 sqM) 05/28/17 05:13 Glucose 87 mg/dL (74-99) 05/28/17 05:13 POC Glucose (mg/dL) 130 mg/dL (75-99) H 05/25/17 08:03 POC Glu Wind Field Manager ID García PulidoClara 05/25/17 08:03 Lactic Ac Sepsis Rflx Y 05/19/17 16:27 Plasma Lactic Acid Froy 1.7 mmol/L (0.7-2.0) 05/19/17 19:46 Calcium 7.5 mg/dL (8.4-10.2) L 05/28/17 05:13 Phosphorus 2.0 mg/dL (2.5-4.5) L 05/26/17 04:40 Magnesium 2.2 mg/dL (1.6-2.3) 05/26/17 04:40 Total Bilirubin 0.4 mg/dL (0.2-1.3) 05/28/17 05:13 AST 72 U/L (17-59) H 05/28/17 05:13 ALT 41 U/L (21-72) 05/28/17 05:13 Alkaline Phosphatase 142 U/L (38-126) H 05/28/17 05:13 Total Creatine Kinase 83 U/L (55-170) 05/20/17 04:16 CK-MB (CK-2) 1.9 ng/mL (0.0-2.4) 05/20/17 04:16 CK-MB (CK-2) Rel Index 2.3 05/20/17 04:16 Troponin I 0.031 ng/mL (0.000-0.034) 05/20/17 04:16 Total Protein 4.7 g/dL (6.3-8.2) L 05/28/17 05:13 Albumin 1.9 g/dL (3.5-5.0) L 05/28/17 05:13 Cortisol 24 ug/dL 05/19/17 15:46 Urine Color Yellow 05/19/17 17:05 Urine Appearance Cloudy (Clear) 05/19/17 17:05 Urine pH 5.5 (5.0-8.0) 05/19/17 17:05 Ur Specific [place] 1.015 (1.001-1.035) 05/19/17 17:05 Urine Protein 1+ (Negative) H 05/19/17 17:05 Urine Glucose (UA) Negative (Negative) 05/19/17 17:05 Urine Ketones Negative (Negative) 05/19/17 17:05 Urine Blood Small (Negative) H 05/19/17 17:05 Urine Nitrite Negative (Negative) 05/19/17 17:05 Urine Bilirubin Negative (Negative) 05/19/17 17:05 Urine Urobilinogen 3.0 mg/dL (<2.0) 05/19/17 17:05 Ur Leukocyte Esterase Large (Negative) H 05/19/17 17:05 Urine RBC 35 /hpf (0-5) H 05/19/17 17:05 Urine WBC 179 /hpf (0-5) H 05/19/17 17:05 Urine WBC Clumps Few /hpf (None) H 05/02/17 19:18 Urine Bacteria Rare /hpf (None) H 05/19/17 17:05 Hyaline Casts 3 /lpf (0-2) H 05/19/17 17:05 Urine Mucus Rare /hpf (None) H 05/19/17 17:05 Urine Yeast (Budding) Occasional /hpf (None) H 05/19/17 17:05 Stool Occult Blood Positive (Negative) 05/21/17 09:30 C. difficile (EIA) Intrp Negative (Negative) 05/03/17 15:54 Blood Type O Positive 05/21/17 15:25 Blood Type Recheck No 05/21/17 15:25 Antibody Screen NEGATIVE 05/21/17 15:25 Crossmatch See Detail 05/21/17 15:25 Spec Expiration Date 05/24/20176 05/21/17 15:25 Microbiology 05/26/17 18:26 Blood Blood Culture - Preliminary No Growth after 48 hours 05/19/17 19:46 Blood Blood Culture - Final No Growth after 144 hours 05/19/17 18:30 Blood Blood Culture - Final No Growth after 144 hours 05/19/17 17:05 Urine,Catheterized Urine Culture - Final 05/04/17 23:29 Blood Blood Culture - Final No Growth after 144 hours 05/03/17 17:57 Blood Blood Culture - Final No Growth after 144 hours 05/03/17 03:00 Urine,Catheterized Urine Culture - Final Escherichia coli Assessment and Plan (1) Gram-negative sepsis with organ dysfunction Narrative/Plan: 82-year-old male transferred from extended care facility for alteration of his status. We'll request performed there was evidence of leukocytosis, acute renal failure, hyperkalemia. With this he was transferred to Hospital and is now received intervention and has been seen by nephrology. Because of his illness computed tomography scan of the abdomen and pelvis was performed showing evidence of the significant cecal dilatation and concerns to infection and abscess at that site. The patient has been seen by surgery and will plan colonoscopy when he is medically cleared. At the time of the consult fluid bolus was given since his computed tomography scan did not show evidence of heart failure. Antipyretics were given. The patient defervesced and his significant tachycardia and hypotension resolved. The patient has remained on selective care. His CODE STATUS is full, and apparently this has been addressed with the family and they do not yet understand the current ramifications of his illness. Ongoing discussion shall be held for more appropriate CODE STATUS. He has had a significant leukocytosis whichpersistant. There is evidence of urine culture with E. coli. His fever has resolved. Antibiotic therapy with Zosyn was initiated with concerns to the abdominal sepsis. We will also give coverage for his urinary tract infection based on prior cultures. He does have some crustiness to his eyes and Polysporin was given with improvement. His legs are wrapped continue the ulcer on the dorsum of the right foot. Local wound care as changed to medical Honey to try to debrided this better. Continue to wrap the legs. The dressing changes can be performed every other day. Assessment followed by surgery. Will need outpatient endoscopic evaluation if possible. There is been a significant leukocytosis minimal improvement. The patient had had adequate treatment for his urinary infection but was still receiving some antibiotic therapy for the abdominal infection. The conversion to oral therapy seems to not be effective at this time. His leukocytosis had increased and developed a bit of a rash possibly from the antibiotic therapy. With antibiotic change the rash is resolved There is concerns to an aspiration event in the ertapenem should give us coverage also. DO NOT RESUSCITATE status has now been accomplished. Plan to complete antibiotics soon, but still has leukocytosis. If aggressive therapy to continue consider followup ABD CT Status: Acute (2) Acute renal failure Status: Acute (3) Hyperkalemia Status: Acute (4) UTI (urinary tract infection) Status: Acute
[2017-05-29] MEDS: SODIUM CHLORIDE 0.45% 1,000 ML IV SCH ×3 (01:17→23:33)
[2017-05-29 06:18] LABS: Anisocytosis Slight; Basophils # (A) 0.1 k/uL (0-0.2); Basophils % (A) 0 %; CH 29.9; CHCM 31.3; Eosinophils # (A) 0.8 k/uL (0-0.7); Eosinophils % (A) 4 %; HCT 26.5 % (39.0-53.0); HDW 3.46; HGB 8.4 gm/dL (13.0-17.5); Hypochromasia Moderate; Luc # (Auto) 0.32; Luc % (Auto) 2; Lymphocytes # (A) 1.6 k/uL (1.0-4.8); Lymphocytes % (A) 9 %; MCH 30.7 pg (25.0-35.0); MCHC 31.8 g/dL (31.0-37.0); MCV 96.5 fL (80.0-100.0); Macrocytosis Slight; Mean Platelet Volume 9.8; Monocytes # (A) 0.8 k/uL (0-1.0); Monocytes % (A) 5 %; Neutrophils # (A) 15.2 k/uL (1.3-7.7); Neutrophils % (A) 81 %; Poikilocytosis Slight; RBC 2.74 m/uL (4.30-5.90); RDW 17.3 % (11.5-15.5); WBC 18.8 k/uL (3.8-10.6); WBC (Perox) 18.79
[2017-05-29 06:32] LABS: ALT 41 U/L (21-72); AST 66 U/L (17-59); Alkaline Phosphatase 130 U/L (38-126); Anion Gap 5 mmol/L; Blood Urea Nitrogen 37 mg/dL (9-20); Carbon Dioxide 19 mmol/L (22-30); Chloride 116 mmol/L (98-107); Glucose 88 mg/dL (74-99); Non-African American GFR(MDRD) >60 (>60 ml/min/1.73 sqM); Potassium 4.9 mmol/L (3.5-5.1); Sodium 140 mmol/L (137-145); Total Bilirubin 0.2 mg/dL (0.2-1.3); Total Protein 4.4 g/dL (6.3-8.2)
[2017-05-29 06:39] LABS: Calcium 6.6 mg/dL (8.4-10.2)
[2017-05-29] MEDS: BUDESONIDE 0.5 MG/2 ML NEBU INHALATION SCH ×2 (08:00→19:50)
[2017-05-29] MEDS: IPRATROPIUM-ALBUTEROL 3 ML NEB INHALATION SCH ×3 (08:01→19:50)
[2017-05-29] MEDS: AMMONIUM LACTATE 12% LOTION 225 GM BTL TOPICAL SCH ×2 (08:14→23:31)
[2017-05-29] MEDS: ERTAPENEM 1 GM in SODIUM CHLORIDE 0.9% 50 ML IVPB SCH (08:15)
[2017-05-29] MEDS: BACITRACIN/POLYMYX 500-10,000 UNIT/GM OPHTH OINT 3.5 GM TUBE BOTH EYES SCH ×4 (08:15→23:29)
[2017-05-29] MEDS: ENOXAPARIN 40 MG/0.4 ML SYRINGE SQ SCH (08:15)
[2017-05-29] MEDS: LORATADINE 10 MG TAB PO SCH (08:15)
[2017-05-29] MEDS: METOPROLOL TARTRATE 50 MG TAB PO SCH ×3 (08:16→23:30)
[2017-05-29] MEDS: SUCRALFATE 1 GM TAB PO SCH ×4 (08:16→23:30)
[2017-05-29] MEDS: PANTOPRAZOLE 40 MG/10 ML VIAL IVP SCH (08:16)
--- NOTE | 2017-05-29 08:18 | P.PN ---
Subjective Principal diagnosis: Anemia with continuing care. Impression an 82-year-old white male centimeter for sepsis and renal failure. The patient is essentially had significant chris course after this. He is currently on antibiotic treatment but mentally has becoming waxing and waning as far as his mentation. Speech tends to be slurred but at times, he is able to answer appropriately. He does not complain of any overt pain today. Objective - Vital Signs Vital signs: Vital Signs Temp 97.7 F 05/29/17 04:00 Pulse 98 05/29/17 08:01 Resp 24 05/29/17 08:01 BP 131/61 05/29/17 04:00 Pulse Ox 98 05/29/17 04:00 Intake & Output 05/28/17 05/29/17 05/29/17 18:59 06:59 18:59 Intake Total 195 1395 Output Total 400 600 Balance -205 795 Weight 74.8 kg 77.5 kg Intake: IV 1200 Sodium Chloride 0.45% 1, 1200 000 ml @ 75 mls/hr IV . [id number] [facility] Rx#:[id number] Tube Feeding 195 195 Output: Urine 300 500 Stool 100 100 Other: Voiding Method Indwelling Catheter Indwelling Catheter - Constitutional General appearance: Present: average body habitus - EENT Eyes: Absent: abnormal pupil - Respiratory Respiratory: bilateral: diminished - Cardiovascular Rhythm: regular Heart sounds: normal: S1, S2 Abnormal Heart Sounds: Absent: S3 Gallop - Gastrointestinal General gastrointestinal: Present: soft. Absent: tenderness - Labs CBC & Chem 7: 05/29/17 05:24 05/29/17 05:24 Labs: Abnormal Lab Results - Last 24 Hours (Table) 05/29/17 05/29/17 Range/Units 05:24 05:24 WBC 18.8 H (3.8-10.6) k/uL RBC 2.74 L (4.30-5.90) m/uL Hgb 8.4 L (13.0-17.5) gm/dL Hct 26.5 L (39.0-53.0) % RDW 17.3 H (11.5-15.5) % Neutrophils # 15.2 H (1.3-7.7) k/uL Eosinophils # 0.8 H (0-0.7) k/uL Chloride 116 H (98-107) mmol/L Carbon Dioxide 19 L (22-30) mmol/L BUN 37 H (9-20) mg/dL Calcium 6.6 L (8.4-10.2) mg/dL AST 66 H (17-59) U/L Alkaline Phosphatase 130 H (38-126) U/L Total Protein 4.4 L (6.3-8.2) g/dL Albumin 1.8 L (3.5-5.0) g/dL Microbiology - Last 24 Hours (Table) 05/26/17 18:26 Blood Culture - Preliminary Blood No Growth after 48 hours Assessment and Plan (1) Acute renal failure Status: Acute (2) Gram-negative sepsis with organ dysfunction Status: Acute (3) CVA (cerebral vascular accident) Status: Acute Plan: Multiplicity of issues including decreased mentation. History of UTI with diverticular abscess. The patient is now ertapenem. Question need repeat abdominal CT if aggressive treatment is to continue. Prognosis poor secondary to his multiplicity of comorbidities and lack of improvement even with feeding tube. We'll continue to follow. We need to ascertain whether ECF versus palliative/hospice care should be instituted given his overall prognosis. Check CBC and CMP in a.m. Time with Patient: Less than 30
--- NOTE | 2017-05-29 10:31 | P.PN ---
Subjective 05/08/17- This is an 82-year-old male patient who came into the emergency department on 05/02/2017 from an extended care facility. Patient was noted to have a potassium of 6.4 at the extended care facility and therefore they sent him over. The patient did not have any further complaints and he has intermittent confusion which is his baseline. EKG performed in the emergency room did show sinus rhythm with occasional PVCs, patient had no ST segment elevation or depression or T-wave abnormalities. The patient was put on lactulose. Hypertension is also being worked up for possible rectal mass and will undergo colonoscopy when stable with Dr. Piña. All labs and reports have been reviewed. Patient is being seen and examined today on the sixth floor for pulmonary services related to progression of shortness of breath over the last few days. He has had a cough however denies any congestion. Nursing staff has denied any sputum production. He is alert and oriented 1 with intermittent confusion. Has been afebrile. Currently is on 3 L of supplemental oxygen via nasal cannula. It is unclear if the patient utilized oxygen in the extended care facility setting. Patient is also on a mechanical soft diet with aspiration precautions. 05/09/17- this patient is being evaluated and examined and seen on rounds today. All labs and reports were reviewed. The patient hyperkalemia has improved. The white blood cell count has come down to 12.8. Patient was noted to have increased lethargy and decreased cognition yesterday afternoon therefore a neurology consult was initiated. Patient is going for a CT of the brain as well as an EEG today. Patient's speech is noted to be slightly slurred and mumbled. Overnight he was noted to refuse care, had increase in agitation, and was refusing food and fluids. and primary care were updated. 05/10/17- this patient is being evaluated exam and seen today on the selective care unit. All labs and reports have been reviewed. Patient appears more awake today than previously. Patient did undergo a CT of the brain and EEG yesterday. Neurology and nephrology is on consult. Patient's prognosis is guarded and he has multiple comorbidities. Upon examination the patient's resting up in bed on room air states he occasionally has shortness of breath with exertion. He denies any cough or congestion at this time. Discharge planning is in process and appears the patient will go back to extended care facility when discharged. 05/11/17- patient is being seen in evaluated and examined today on the fifth floor. Patient is known to be slightly tired however is easily awoken. Currently he is resting up in bed on room air. Patient noticed to have a faint light red flat erythema rash to his right lateral chest. He denies any itching or pain. The area is small and diffuse. We will continue to monitor this. He does have Lotrisone cream for the area. On examination he denies any shortness of breath cough or congestion. Family at bedside updated on plan of care. 05/12/17- patient is being seen examined and evaluated today on the floor. The patient continues to be tired however is easily aroused upon examination. No further progression is noted of his rash to the right lateral chest. On examination patient's resting up in bed on room air. Shortness of breath as noted with exertion. Intermittent cough. He is afebrile, no overnight events. 05/13/17- patient is being seen examined and evaluated today on the floor. On examination the patient is resting in bed on room air, continues with shortness of breath on exertion. According to the nursing staff during breakfast the patient was coughing and choking and has dysphagia diet. Continue swallow evaluation with speech therapy has been ordered. 05/14/17-05/19/[address] Valverde's dictations 05/20/17- patient is being seen examined and evaluated today in the intensive care unit. Currently the patient is resting up in bed on 2 L of supplemental oxygen via nasal cannula. Patient continues to be tachycardic and oxygen dependent. Patient did undergo a procedure for PEG tube and is currently tolerating tube feeds. Chest x-ray has been reviewed from this morning and does show a correlation for CHF, underlying pneumonia not excluded. Upon examination the patient's vasopressors are on hold. We are trying to wean the patient off of pressors at this time. 05/21/17- patient is being seen examined and evaluated today in the intensive care unit. Patient has been noted to have significant tachycardia with episodes of hypotension, he was noted to have increased bowel movements that were loose and dark. Occult blood was sent to lab and came back positive. The patient had FMF in place. Surgical has been updated. Hemoglobin noted to drop from 8.6 this morning now down to 7.3. Orders given for 2 units of packed red blood cells as well as consult interventional radiology for PICC line insertion. chest x-ray from this afternoon revealed improved variation in both lung bases. 05/22/17- patient seen and examined in the ICU remains hypertensive but intermittent continue to have episodes of tachycardia the beta blockers are being used cautiously currently patient heart rate is about 150-160 and appears to be sinus tachycardia Cardizem drip is not working so is being discontinued patient is on IV Lopressor has been on by mouth Lopressor as well he has been transfused with packed RBC indexes of bleeding that has been seen overnight has appears to settle down patient slightly more awake now family is present at bedside care plan discussed with them the advice to proceed with a DO NOT RESUSCITATE CODE STATUS, patient is status post PICC line placement 05/23/17- patient is being seen examined and evaluated today in the intensive care unit. Patient has received a total of 4 units of packed red blood cells. Hemoglobin is noted to drop from 11.8 to 9.4 today. Surgery is also on consult , however he has a high risk candidate. His fecal management system is in place and the stools look less maroon today than previous. He continues to have intermittent confusion. His sodium was noted to be 155 today, as well as a chloride of 129. We have increased his free water flushes via PEG tube to 250 ML's every 6. Upon examination the patient's resting up in bed on 3 L of supplemental oxygen via nasal cannula. He continues to have a dry cough. Currently he is afebrile, no further complaints. 05/24/17-05/27/17- See Dr. Austin note, as he was on for coverage 05/28/17- see Dr. Valverde's progress note 05/29/17- patient is seen examined and evaluated today on the selective care unit. Patient continues to be nonverbal and noncommunicative with intermittent anxiety and confusion. Patient has failed to show any significant improvement, he remains very debilitated, no evidence of any active bleeding is present. Patient has been downgraded to the medical surgical unit. Due to the patient's poor prognosis it has been suggested the patient should be evaluated for hospice , will defer to primary service in that regard. Agent has been receiving nutrition via PEG tube and has been tolerating that well. He continues to have Granados catheter as well as fecal management system. No further bleeding has been noted. Objective - Vital Signs Vital signs: Vital Signs Temp 98.3 F 05/29/17 08:30 Pulse 116 H 05/29/17 08:30 Resp 24 05/29/17 08:30 BP 138/83 05/29/17 08:30 Pulse Ox 97 05/29/17 08:30 Intake & Output 05/28/17 05/29/17 05/29/17 18:59 06:59 18:59 Intake Total 195 1395 65 Output Total 400 600 600 Balance -205 795 -535 Weight 74.8 kg 77.5 kg Intake: IV 1200 Sodium Chloride 0.45% 1, 1200 000 ml @ 75 mls/hr IV . [id number] [facility] Rx#:[id number] Tube Feeding 195 195 65 Output: Urine 300 500 Stool 100 100 600 Other: Voiding Method Indwelling Catheter Indwelling Catheter Indwelling Catheter - Exam GENERAL EXAM: Alert, intermittent confusion noted which is baseline, comfortable in no apparent distress. HEAD: Normocephalic. EYES: Normal reaction of pupils, equal size. NOSE: Clear with pink turbinates. THROAT: No erythema or exudates. NECK: No masses, no JVD. CHEST: No chest wall deformity. LUNGS: Equal air entry with no crackles, wheeze, rhonchi or dullness. Breath sounds decreased bilaterally. CVS: S1 and S2 normal with no audible mumurs, regular rhythm. ABDOMEN: No hepatosplenomegaly, normal bowel sounds, no guarding or rigidity. PEG tube in place clean dry and intact, FMS in place EXTREMITIES: +2 edema noted, pedal pulses palpable. Chronic skin changes noted , bilateral legs wrapped SKIN: Multiple skin tears, flat erythema diffuse rash to right lateral chest, cream applied CENTRAL NERVOUS SYSTEM: No focal deficits, moves all 4 extremities. - Labs CBC & Chem 7: 05/29/17 05:24 05/29/17 05:24 Labs: Abnormal Lab Results - Last 24 Hours (Table) 05/29/17 05/29/17 Range/Units 05:24 05:24 WBC 18.8 H (3.8-10.6) k/uL RBC 2.74 L (4.30-5.90) m/uL Hgb 8.4 L (13.0-17.5) gm/dL Hct 26.5 L (39.0-53.0) % RDW 17.3 H (11.5-15.5) % Neutrophils # 15.2 H (1.3-7.7) k/uL Eosinophils # 0.8 H (0-0.7) k/uL Chloride 116 H (98-107) mmol/L Carbon Dioxide 19 L (22-30) mmol/L BUN 37 H (9-20) mg/dL Calcium 6.6 L (8.4-10.2) mg/dL AST 66 H (17-59) U/L Alkaline Phosphatase 130 H (38-126) U/L Total Protein 4.4 L (6.3-8.2) g/dL Albumin 1.8 L (3.5-5.0) g/dL Microbiology - Last 24 Hours (Table) 05/26/17 18:26 Blood Culture - Preliminary Blood No Growth after 48 hours Assessment and Plan Plan: Assessment Supraventricular tachycardia likely related to the intravascular water depletion dehydration and acute blood loss anemia with ongoing intermittent GI loss Recurrent intermittent aspiration with episodes of silent aspiration patient is status post PEG tube placement Urinary tract infection, culture positive for gram negatives bacilli and E. coli , which appears to be ESBL, IVS adjust antibiotics Sepsis with fever, gram-negative Acute hypoxic respiratory failure Hyperkalemia, improved Acute renal failure Urinary tract infection, culture positive for gram negatives bacilli and E. coli Hypernatremia likely related to decreased oral intake Probable rectal mass, currently being worked up Diarrhea History of CVA Hypotension Plan She can be downgraded to the medical surgical floor. Medications have been reviewed and will be continued as ordered. Patient's prognosis is guarded. Patient did have an interventional radiology consult to have PICC line inserted. Patient known to be resistive to care and medical treatment. Continue to monitor electrolytes. Patient will undergo colonoscopy once cleared , in the outpatient setting. Continue with pulmonary hygiene, coughing and deep breathing exercises, and supportive care. Supplemental oxygen to maintain oxygen saturations of 92% or better. Continue nebulizer treatments in the form of DuoNeb and budesonide. . GI and DVT prophylaxis. Appreciate consults recommendations. Patient is currently being worked up for discharge planning to extended care facility. We will continue to monitor labs/results and adjust treatment as necessary. Further recommendations pending. I performed an examination of the patient and discussed their management with the nurse practitioner. I have reviewed the nurse practitioner's note and agree with the documented findings and plan of care.
[2017-05-29] MEDS: IPRATROPIUM-ALBUTEROL 3 ML NEB INHALATION PRN (16:37)
--- NOTE | 2017-05-29 21:31 | P.PN ---
Subjective Franco Hill is a 82-year-old right-handed white male who was initially admitted to [facility] on 05/02/2017 for evaluation of sepsis and weakness. Patient was seen in neurology consultation initially back on . He was found to have evidence at that time of diffuse metabolic encephalopathy and acute renal failure. He was also being treated for gram- negative sepsis with organ dysfunction. He has been seen by infectious disease and is followed by Dr. Kenney. The patient apparently was started on symptom feedings early this afternoon and had significant residuals averaging 65 200 mL. The patient also spiked a temperature this afternoon to 101 degrees Fahrenheit. He developed symptoms of hypotension which persisted. Patient was transferred to the intensive care unit where he is now being seen in neurology follow-up. The patient is resting comfortably. He does not appear to be in acute pain. He is able to follow some simple commands. His temperature is now back to normal and is noted to be orally at 97.9. The patient was started on 5 mics of Levophed due to the severe hypotension. His CODE STATUS as per family remains full CODE STATUS at this time. Due to the change in his level of function we have recommended a stat computed tomography scan of the brain to be done this evening to rule out any acute intracranial lesion or other abnormalities. We will also plan to get a follow-up EEG for the patient tomorrow morning. Case was discussed today at length with Dr. Kenney from infectious disease who agrees with our current treatment plan. The patient developed severe anemia today and did require 2 units of packed red cells for treatment. His hemoglobin had dropped to 7.3. Apparently later this evening he developed maroon-colored stools and did require 2 more units of packed red cells. Patient also this evening has developed a low-grade temperature of 100.8. We will await further recommendations from infectious disease. According to the ICU nurse the family has now made the patient DO NOT RESUSCITATE CODE STATUS. His was at bedside and she was updated on his overall poor prognosis and his current neurological condition. She is aware of his very guarded condition at this time. Apparently he has been opening his eyes but has very little verbal output when family is at bedside. He has shown some improvement this evening in terms of his overall mental status. He is opening his eyes and does say a few words. According to the ICU nursing staff he was more alert this morning. Towards the end of the day he becomes more lethargic. He does easily arouses evening in the ICU. He is following only simple commands. He has remained relatively stable today in terms of his hemodynamics. He continues to remain slightly tachycardic and his current hemoglobin is 8.0. His hemoglobin continues to drop slowly. As noted surgery is aware of his condition. He has had some dark tarry stools today as well. Surgical services are on his case. So far his blood cultures have remained negative. His white count remains elevated at 23.5 today. Patient is noted to be using breathing treatment this evening and apparently has been less responsive late this evening. Patient is afebrile today. He had a fever yesterday evening. Infectious disease is following the patient. Patient does follow some simple commands today. He is less obtunded as compared to yesterday. He still has generalized weakness. Patient was transferred out of the ICU a few days ago. [facility] and seems to be doing fairly well. He is more responsive. Still has very hard time articulating his speech. He is currently undergoing a breathing treatment. According to the respiratory therapist he has 3 treatments daily. We will continue to follow his progress closely with infectious disease. Patient remains anemic. His hemoglobin today is 8.9. Due to this patient's poor prognosis it has been suggested the patient be evaluated for hospice care. The patient is currently being worked up for discharge planning to extended care facility versus hospice care. His CODE STATUS is now DO NOT RESUSCITATE. He is being considered for possible transfer to [facility] when he is medically stable. We will continue close monitoring of this patient in the intensive care unit. His overall prognosis at this time remains very guarded. Objective - Vital Signs Vital signs: Vital Signs Temp 99.5 F 05/29/17 15:15 Pulse 109 H 05/29/17 16:51 Resp 26 H 05/29/17 16:00 BP 125/64 05/29/17 15:15 Pulse Ox 99 05/29/17 15:15 Intake & Output 05/28/17 05/29/17 05/29/17 18:59 06:59 18:59 Intake Total 195 1395 785 Output Total 201 415 5330 Balance -205 795 -415 Weight 74.8 kg 77.5 kg Intake: IV 1200 150 Sodium Chloride 0.45% 1, 1200 150 000 ml @ 75 mls/hr IV . [id number] GLENNA Rx#:[id number] Intake, IV Titration 50 Amount Ertapenem 1 gm In Sodium 50 Chloride 0.9% 50 ml @ 100 mls/hr IVPB DAILY GLENNA Rx #:[id number] Oral 0 Tube Feeding 195 195 585 Output: Urine 300 500 250 Stool 100 100 950 Other: Voiding Method Indwelling Catheter Indwelling Catheter Indwelling Catheter # Voids 1 - Exam Physical examination: PHYSICAL EXAMINATION: Patient is resting comfortably in bed. Patient is somewhat lethargic but easily arousable. He does follow simple commands. His is at bedside. VITAL SIGNS: Blood pressure is [125/64]. Heart rate is [110]. Respiration is [26 ]. Temperature is [99.5]. HEENT: Head is atraumatic, neck is supple, there were no carotid bruits. CHEST: Lungs are clear to auscultation and percussion. CARDIAC: S1, S2 normal rate and rhythm. There is no murmur. ABDOMEN: Soft and nontender. Bowel sounds are present. EXTREMITIES: There is no pedal edema. Peripheral pulses are present. Neurological examination: Patient was transferred out of the intensive care unit yesterday. He is resting comfortably. He is alert and oriented 2. He is able to follow simple commands. He has generalized weakness. Deep tendon reflexes are 1+ and symmetric. Plantar responses flexor bilaterally. Coordination and gait cannot be assessed in this patient at this time. The patient is noted to have a breathing mask in place but does open his eyes to stimulation. He does follow some simple commands. - Labs CBC & Chem 7: 05/29/17 05:24 05/29/17 05:24 Labs: Abnormal Lab Results - Last 24 Hours (Table) 05/29/17 05/29/17 Range/Units 05:24 05:24 WBC 18.8 H (3.8-10.6) k/uL RBC 2.74 L (4.30-5.90) m/uL Hgb 8.4 L (13.0-17.5) gm/dL Hct 26.5 L (39.0-53.0) % RDW 17.3 H (11.5-15.5) % Neutrophils # 15.2 H (1.3-7.7) k/uL Eosinophils # 0.8 H (0-0.7) k/uL Chloride 116 H (98-107) mmol/L Carbon Dioxide 19 L (22-30) mmol/L BUN 37 H (9-20) mg/dL Calcium 6.6 L (8.4-10.2) mg/dL AST 66 H (17-59) U/L Alkaline Phosphatase 130 H (38-126) U/L Total Protein 4.4 L (6.3-8.2) g/dL Albumin 1.8 L (3.5-5.0) g/dL Microbiology - Last 24 Hours (Table) 05/26/17 18:26 Blood Culture - Preliminary Blood No Growth after 48 hours Assessment and Plan (1) Acute metabolic encephalopathy Status: Acute Code(s): G93.41 - METABOLIC ENCEPHALOPATHY (2) Gram-negative sepsis with organ dysfunction Status: Acute Code(s): A41.50 - GRAM-NEGATIVE SEPSIS, UNSPECIFIED; R65.20 - SEVERE SEPSIS WITHOUT SEPTIC SHOCK (3) Acute renal failure Status: Acute Code(s): N17.9 - ACUTE KIDNEY FAILURE, UNSPECIFIED (4) Febrile illness Status: Acute Code(s): R50.9 - FEVER, UNSPECIFIED Plan: This patient is a 82-year-old male who was initially admitted to Hospital with symptoms of increasing weakness and sepsis. Today he was on the medical floor and developed residual retention of his tube feedings. He then spiked a temperature of 101F. He then showed signs of severe hypotension. He was transferred to the intensive care unit this evening where he is now been examined. Patient was started on 5 mics of Levophed due to the hypotension. We have arranged for a stat computed tomography scan of the brain to be done this evening for further evaluation. The patient is afebrile at this time. He is being followed closely by infectious disease and Dr. Kenney for gram- negative sepsis. He is on antibiotic coverage. The patient continues to have low-grade temperature today of 100.8. He is also received 4 units of packed red cells due to severe anemia. The family has now decided to make the patient DO NOT RESUSCITATE CODE STATUS due to his complex medical history. The patient remains somewhat encephalopathic at this time. was updated on his overall neurological status and current condition. She is aware of his guarded condition. We will continue close neurological follow-up of this patient in the intensive care unit. His mental status has shown some improvement today. He is slightly more awake and able to answer some questions today. His neurological findings are consistent with a diffuse metabolic encephalopathy. As noted his CODE STATUS remains no code as per the family wishes. His overall prognosis at this time remains very guarded. Case was discussed yesterday at length with the patient's and son at bedside. All of their questions were answered. They are both aware of his guarded condition. The patient remains somewhat obtunded this evening. He does follow some simple commands. We are waiting further recommendations from infectious disease in regards to his sepsis. He does have underlying urinary tract infection with positive cultures for gram-negative bacilli in the E. coli. He is being followed closely by infectious disease. He is currently receiving antibiotics which include Polysporin and ertapenem. He remains afebrile this evening. The patient did undergo a follow-up EEG today for further evaluation of his overall cognitive function. His EEG remains very slow and consistent with moderate to severe encephalopathy. There is very little change compared to a previous EEG that was done on 05/20/2017. Patient is afebrile this morning. He was transferred out of the intensive care unit yesterday. He is resting comfortably in bed. He seems to be slightly more alert but still having a hard time articulating his speech. He is only able to say only a few words. His overall prognosis at this time remains very guarded. The patient continues to remain anemic with a hemoglobin of 8.9 today. The patient's CODE STATUS is DO NOT RESUSCITATE. Patient is being considered for possible ECF placement once he is medically stable. Due to his poor prognosis it has been suggested that the patient also be considered for possible hospice care. We will await further recommendations from Dr. Anderson. His overall prognosis at this time remains guarded. We will continue close neurological follow-up of this patient during this admission.
--- NOTE | 2017-05-29 22:21 | P.PN ---
Subjective Principal diagnosis: sepsis 82-year-old male resident of [facility] was found evidence of multiple abnormal labs included acute renal failure and hyperkalemia. The patient was transferred from the [facility] care [facility] for further intervention. Infectious diseases consultation was requested when the patient developed a high-grade fever reportedly over 104. the consult was initiated as the patient became febrile, hypotensive and tachycardic. The patient is a poor historian. The patient today is a bit more comfortable than reported last evening. He relates that he has minimal hunger. His mouth is dry. As related lactic acid was drawn which was elevated and had evidence of leukocytosis, the patient was given fluids and antibiotic therapy with Zosyn given the concerns to urinary system as well as potential abdominal source since he was having some diarrhea. As the patient is slightly more comfortable. Has been seen by surgery and is being monitored for a potential colonoscopy in the future. Regarding ongoing treatment for the colonic abscess. No complaints except for fatigue.. As noted there is been the difficulty with his nutrition. Concerns of an aspiration event. PEG tube is been placed and is being utilized at this time under the supervision of surgery. Remains confused. Objective - Vital Signs Vital signs: Vital Signs Temp 99.5 F 05/29/17 15:15 Pulse 99 05/29/17 20:00 Resp 26 H 05/29/17 16:00 BP 125/64 05/29/17 15:15 Pulse Ox 99 05/29/17 15:15 Intake & Output 05/29/17 05/29/17 05/30/17 06:59 18:59 06:59 Intake Total 1395 785 Output Total 600 1200 Balance 795 -415 Weight 77.5 kg Intake: IV 1200 150 Sodium Chloride 0.45% 1, 1200 150 000 ml @ 75 mls/hr IV . [id number] GLENNA Rx#:[id number] Intake, IV Titration 50 Amount Ertapenem 1 gm In Sodium 50 Chloride 0.9% 50 ml @ 100 mls/hr IVPB DAILY GLENNA Rx #:[id number] Oral 0 Tube Feeding 195 585 Output: Urine 500 250 Stool 100 950 Other: Voiding Method Indwelling Catheter Indwelling Catheter # Voids 1 - Exam 82-year-old male poor historian HEENT: Anicteric conjunctiva are pink and mildly crusty nasal mucosa grossly intact without significant lesions, there is no thrush but the oral cavity is very dry Neck: The neck is supple with no nuchal rigidity, without significant lymphadenopathy or thyromegaly. Lungs: There is symmetrical air entry. Scattered wheezes and basilar crackles are noted. Heart: Irregular with soft S4 no distinct murmur click or rub Abdomen: Positive bowel sounds soft and nontender without palpable masses or organomegaly. There was no guarding or rebound. PEG tube site is intact without erythema or drainage Extremities: The extremities have some minimal trace edema but no significant lesions are seen in the upper extremities. The lower extremities have evidence of the extensive skin lesion the bilateral lower extremities. There is a healing left hip incision which is without erythema crepitance or fluctuance. There is some erythema to the buttocks area. Neuro: Arousable, speech content is poor and inconsistent can poorly understandable he however does move arms and legs spontaneously Prior skin rash the chest and abdominal wall have resolved - Labs CBC & Chem 7: 05/29/17 05:24 05/29/17 05:24 Labs: Abnormal Lab Results - Last 24 Hours (Table) 05/29/17 05/29/17 Range/Units 05:24 05:24 WBC 18.8 H (3.8-10.6) k/uL RBC 2.74 L (4.30-5.90) m/uL Hgb 8.4 L (13.0-17.5) gm/dL Hct 26.5 L (39.0-53.0) % RDW 17.3 H (11.5-15.5) % Neutrophils # 15.2 H (1.3-7.7) k/uL Eosinophils # 0.8 H (0-0.7) k/uL Chloride 116 H (98-107) mmol/L Carbon Dioxide 19 L (22-30) mmol/L BUN 37 H (9-20) mg/dL Calcium 6.6 L (8.4-10.2) mg/dL AST 66 H (17-59) U/L Alkaline Phosphatase 130 H (38-126) U/L Total Protein 4.4 L (6.3-8.2) g/dL Albumin 1.8 L (3.5-5.0) g/dL Microbiology - Last 24 Hours (Table) 05/26/17 18:26 Blood Culture - Preliminary Blood No Growth after 72 hours Laboratory Results WBC 18.8 k/uL (3.8-10.6) H 05/29/17 05:24 RBC 2.74 m/uL (4.30-5.90) L 05/29/17 05:24 Hgb 8.4 gm/dL (13.0-17.5) L 05/29/17 05:24 Hct 26.5 % (39.0-53.0) L 05/29/17 05:24 MCV 96.5 fL (80.0-100.0) 05/29/17 05:24 MCH 30.7 pg (25.0-35.0) 05/29/17 05:24 MCHC 31.8 g/dL (31.0-37.0) 05/29/17 05:24 RDW 17.3 % (11.5-15.5) H 05/29/17 05:24 Plt Count 432 k/uL (150-450) 05/29/17 05:24 Neutrophils % 81 % 05/29/17 05:24 Neutrophils % (Manual) 88 % 05/24/17 04:50 Lymphocytes % 9 % 05/29/17 05:24 Lymphocytes % (Manual) 6 % 05/24/17 04:50 Monocytes % 5 % 05/29/17 05:24 Monocytes % (Manual) 4 % 05/24/17 04:50 Eosinophils % 4 % 05/29/17 05:24 Eosinophils % (Manual) 2 % 05/24/17 04:50 Basophils % 0 % 05/29/17 05:24 Neutrophils # 15.2 k/uL (1.3-7.7) H 05/29/17 05:24 Neutrophils # (Manual) 20.68 k/uL (1.3-7.7) H 05/24/17 04:50 Lymphocytes # 1.6 k/uL (1.0-4.8) 05/29/17 05:24 Lymphocytes # (Manual) 1.41 k/uL (1.0-4.8) 05/24/17 04:50 Monocytes # 0.8 k/uL (0-1.0) 05/29/17 05:24 Monocytes # (Manual) 0.94 k/uL (0-1.0) 05/24/17 04:50 Eosinophils # 0.8 k/uL (0-0.7) H 05/29/17 05:24 Eosinophils # (Manual) 0.47 k/uL (0-0.7) 05/24/17 04:50 Basophils # 0.1 k/uL (0-0.2) 05/29/17 05:24 Nucleated RBCs 1 /100 WBC (0-0) H 05/24/17 04:50 Manual Slide Review Performed 05/24/17 04:50 Polychromasia Present 05/24/17 04:50 Hypochromasia Moderate 05/29/17 05:24 Poikilocytosis Slight 05/29/17 05:24 Anisocytosis Slight 05/29/17 05:24 Macrocytosis Slight 05/29/17 05:24 PT 11.9 sec (9.0-12.0) 05/19/17 15:46 INR 1.2 (<1.2) H 05/19/17 15:46 APTT 27.9 sec (22.0-30.0) 05/19/17 15:46 Sodium 140 mmol/L (137-145) 05/29/17 05:24 Potassium 4.9 mmol/L (3.5-5.1) 05/29/17 05:24 Chloride 116 mmol/L (98-107) H 05/29/17 05:24 Carbon Dioxide 19 mmol/L (22-30) L 05/29/17 05:24 Anion Gap 5 mmol/L 05/29/17 05:24 BUN 37 mg/dL (9-20) H 05/29/17 05:24 Creatinine 0.96 mg/dL (0.66-1.25) 05/29/17 05:24 Est GFR (MDRD) Af Amer >60 (>60 ml/min/1.73 sqM) 05/29/17 05:24 Est GFR (MDRD) Non-Af >60 (>60 ml/min/1.73 sqM) 05/29/17 05:24 Glucose 88 mg/dL (74-99) 05/29/17 05:24 POC Glucose (mg/dL) 130 mg/dL (75-99) H 05/25/17 08:03 POC Glu Protocol Manager ID AshokGarcía A 05/25/17 08:03 Lactic Ac Sepsis Rflx Y 05/19/17 16:27 Plasma Lactic Acid Froy 1.7 mmol/L (0.7-2.0) 05/19/17 19:46 Calcium 6.6 mg/dL (8.4-10.2) L 05/29/17 05:24 Phosphorus 2.0 mg/dL (2.5-4.5) L 05/26/17 04:40 Magnesium 2.2 mg/dL (1.6-2.3) 05/26/17 04:40 Total Bilirubin 0.2 mg/dL (0.2-1.3) 05/29/17 05:24 AST 66 U/L (17-59) H 05/29/17 05:24 ALT 41 U/L (21-72) 05/29/17 05:24 Alkaline Phosphatase 130 U/L (38-126) H 05/29/17 05:24 Total Creatine Kinase 83 U/L (55-170) 05/20/17 04:16 CK-MB (CK-2) 1.9 ng/mL (0.0-2.4) 05/20/17 04:16 CK-MB (CK-2) Rel Index 2.3 05/20/17 04:16 Troponin I 0.031 ng/mL (0.000-0.034) 05/20/17 04:16 Total Protein 4.4 g/dL (6.3-8.2) L 05/29/17 05:24 Albumin 1.8 g/dL (3.5-5.0) L 05/29/17 05:24 Cortisol 24 ug/dL 05/19/17 15:46 Urine Color Yellow 05/19/17 17:05 Urine Appearance Cloudy (Clear) 05/19/17 17:05 Urine pH 5.5 (5.0-8.0) 05/19/17 17:05 Ur Specific Tracy 1.015 (1.001-1.035) 05/19/17 17:05 Urine Protein 1+ (Negative) H 05/19/17 17:05 Urine Glucose (UA) Negative (Negative) 05/19/17 17:05 Urine Ketones Negative (Negative) 05/19/17 17:05 Urine Blood Small (Negative) H 05/19/17 17:05 Urine Nitrite Negative (Negative) 05/19/17 17:05 Urine Bilirubin Negative (Negative) 05/19/17 17:05 Urine Urobilinogen 3.0 mg/dL (<2.0) 05/19/17 17:05 Ur Leukocyte Esterase Large (Negative) H 05/19/17 17:05 Urine RBC 35 /hpf (0-5) H 05/19/17 17:05 Urine WBC 179 /hpf (0-5) H 05/19/17 17:05 Urine WBC Clumps Few /hpf (None) H 05/02/17 19:18 Urine Bacteria Rare /hpf (None) H 05/19/17 17:05 Hyaline Casts 3 /lpf (0-2) H 05/19/17 17:05 Urine Mucus Rare /hpf (None) H 05/19/17 17:05 Urine Yeast (Budding) Occasional /hpf (None) H 05/19/17 17:05 Stool Occult Blood Positive (Negative) 05/21/17 09:30 C. difficile (EIA) Intrp Negative (Negative) 05/03/17 15:54 Blood Type O Positive 05/21/17 15:25 Blood Type Recheck No 05/21/17 15:25 Antibody Screen NEGATIVE 05/21/17 15:25 Crossmatch See Detail 05/21/17 15:25 Spec Expiration Date 05/24/2017 [id number] 05/21/17 15:25 Microbiology 05/26/17 18:26 Blood Blood Culture - Preliminary No Growth after 72 hours 05/19/17 19:46 Blood Blood Culture - Final No Growth after 144 hours 05/19/17 18:30 Blood Blood Culture - Final No Growth after 144 hours 05/19/17 17:05 Urine,Catheterized Urine Culture - Final 05/04/17 23:29 Blood Blood Culture - Final No Growth after 144 hours 05/03/17 17:57 Blood Blood Culture - Final No Growth after 144 hours 05/03/17 03:00 Urine,Catheterized Urine Culture - Final Escherichia coli Assessment and Plan (1) Gram-negative sepsis with organ dysfunction Narrative/Plan: 82-year-old male transferred from extended care facility for alteration of his status. We'll request performed there was evidence of leukocytosis, acute renal failure, hyperkalemia. With this he was transferred to Hospital and is now received intervention and has been seen by nephrology. Because of his illness computed tomography scan of the abdomen and pelvis was performed showing evidence of the significant cecal dilatation and concerns to infection and abscess at that site. The patient has been seen by surgery and will plan colonoscopy when he is medically cleared. At the time of the consult fluid bolus was given since his computed tomography scan did not show evidence of heart failure. Antipyretics were given. The patient defervesced and his significant tachycardia and hypotension resolved. The patient has remained on selective care. His CODE STATUS is full, and apparently this has been addressed with the family and they do not yet understand the current ramifications of his illness. Ongoing discussion shall be held for more appropriate CODE STATUS. He has had a significant leukocytosis whichpersistant. There is evidence of urine culture with E. coli. His fever has resolved. Antibiotic therapy with Zosyn was initiated with concerns to the abdominal sepsis. We will also give coverage for his urinary tract infection based on prior cultures. He does have some crustiness to his eyes and Polysporin was given with improvement. His legs are wrapped continue the ulcer on the dorsum of the right foot. Local wound care as changed to medical Honey to try to debrided this better. Continue to wrap the legs. The dressing changes can be performed every other day. Assessment followed by surgery. Will need outpatient endoscopic evaluation if possible. There is been a significant leukocytosis minimal improvement. The patient had had adequate treatment for his urinary infection but was still receiving some antibiotic therapy for the abdominal infection. The conversion to oral therapy seems to not be effective at this time. His leukocytosis had increased and developed a bit of a rash possibly from the antibiotic therapy. With antibiotic change the rash is resolved There is concerns to an aspiration event in the ertapenem should give us coverage also. DO NOT RESUSCITATE status has now been accomplished. Plan to complete antibiotics soon, but still has leukocytosis. If aggressive therapy to continue consider followup ABD CT to determine if abscess improved. Status: Acute (2) Acute renal failure Status: Acute (3) Hyperkalemia Status: Acute (4) UTI (urinary tract infection) Status: Acute
[2017-05-30] MEDS: BUDESONIDE 0.5 MG/2 ML NEBU INHALATION SCH ×2 (07:03→20:43)
[2017-05-30] MEDS: IPRATROPIUM-ALBUTEROL 3 ML NEB INHALATION SCH ×3 (07:03→20:43)
--- NOTE | 2017-05-30 07:36 | P.PN ---
Subjective Principal diagnosis: Generalized weakness and continuing care. This is a continue process on an 82-year-old white male who has had a long hospitalization related to abdominal infection urinary tract issues and generalized weakness. He was doing quite poorly. He is at a history of previous CVA with minimal residual but has becoming more weak. He has an underlying history of gout which also has been stable. He is placed on appropriate Zosyn for about 2 weeks. This was because of UTI and abdominal infection. The patient then was transitioned to oral therapy and did not do well from a fever perspective. He ended up going to the ICU for appropriate treatment and had sepsis signs. During this time, he also had significant problems as far as feeding and now has had tube placement. The patient seems to be slowly declining this week overall. He is now DO NOT RESUSCITATE but I feel his prognosis is becoming more poor. He is not very responsive at this time. Discharge planning for possible ECF placement should be instituted. Objective - Vital Signs Vital signs: Vital Signs Temp 98.4 F 05/30/17 06:27 Pulse 100 05/30/17 07:17 Resp 20 05/30/17 07:03 BP 118/76 05/30/17 06:27 Pulse Ox 98 05/30/17 06:27 Intake & Output 05/29/17 05/30/17 05/30/17 18:59 06:59 18:59 Intake Total 785 195 Output Total 1200 850 Balance -415 -655 Weight 76.5 kg Intake: IV 150 Sodium Chloride 0.45% 1, 150 000 ml @ 75 mls/hr IV . [id number] GLENNA Rx#:[id number] Intake, IV Titration 50 Amount Ertapenem 1 gm In Sodium 50 Chloride 0.9% 50 ml @ 100 mls/hr IVPB DAILY GLENNA Rx #:[id number] Oral 0 0 Tube Feeding 585 195 Output: Urine 250 600 Uretheral (Granados) 600 Stool 950 250 Other: Voiding Method Indwelling Catheter Indwelling Catheter # Voids 1 2 - Constitutional General appearance: Present: average body habitus - EENT Eyes: Absent: abnormal pupil - Respiratory Respiratory: bilateral: diminished - Cardiovascular Rhythm: regular Heart sounds: normal: S1, S2 - Gastrointestinal General gastrointestinal: Present: soft - Musculoskeletal Musculoskeletal: Present: generalized weakness - Psychiatric Psychiatric: Absent: A&O x's 3, appropriate affect, intact judgment & insight - Labs CBC & Chem 7: 05/29/17 05:24 05/29/17 05:24 Labs: Microbiology - Last 24 Hours (Table) 05/26/17 18:26 Blood Culture - Preliminary Blood No Growth after 72 hours Assessment and Plan (1) Acute renal failure Status: Acute (2) Gram-negative sepsis with organ dysfunction Status: Acute (3) CVA (cerebral vascular accident) Status: Acute Plan: Discharge planning she should be instituted for possible ECF placement. I am concerned that if we try to transition him to oral therapy, he will not do well. UTI has been treated appropriately but I am concerned that he could continue to have fever spikes. However, his prognostic indicators are becoming more guarded if not poor. Check CBC and CMP in a.m. Anticipate transfer once cleared by consultants, but again I I am concerned about long-term antibiotic use. He now has feeding tube to help with nutritional status as he is not able to swallow consistently without aspirating. I suspect palliative versus hospice care needs to be instituted. However his is somewhat reluctant to do this at this time. Dr. Hunt's group will be covering for the weekend starting 05/31/2017 Time with Patient: Greater than 30
--- NOTE | 2017-05-30 08:25 | CDI ---
In responding to this query, please exercise your independent professional judgment. The [facility] Coding Staff and Clinical Documentation Specialists appreciate your assistance in clarifying documentation, maintaining compliance with coding guidelines, accurately documenting patients condition and capturing severity of illness. The fact that a question is asked does not imply that any particular answer is desired or expected. Communication forms are a method of clarifying documentation and are not made part of the Legal Health Record. Thank you in advance for your clarification. Last Revision, July 2015 July Swan [address] [place] [address] Documentation Clarification Form Date: 05/28/2017 10:35:00 AM Resubmitted 05/30/2017 From: Carol Ann Nieves, CACHORRO, CCDS Admit Date: 05/02/2017 7:07:00 PM Patient Name: Franco Hill Visit Number: [id number] Discharge Date: Dr. Deshawn Hunt: Atrial fibrillation is documented in the 05/05 attending progress note as "possible atrial fibrillation". History/Risk Factors: CVA, TIA, hypertension. Clinical Indicators: 82 yo male presented with diarrhea, found to be in acute renal failure, UTI & Sepsis. EKG/telemetry: EKG #1 05/02: R 89 sinus rhythm w/occasional PVCs. EKG #2 05/02: R 134 undetermined rhythm. Treatment: ICU, telemetry, IV fluids, IV Mag Sulfate, IV antibiotics, IV Lopressor, IV Cardizem, IV Lasix, )2. Consults: Cardiology (no documented Atrial Fibrillation) In your professional opinion, can you please clarify the type of atrial fibrillation, if known? Chronic/Permanent Paroxysmal Persistent Other, please specify Unable to determine Please document in your progress notes and discharge summary in order to capture severity of illness and risk of mortality. Include clinical findings that support your diagnosis. FYI: Press F11 to launch patient chart MTDD
[2017-05-30 08:53] LABS: ALT 43 U/L (21-72); AST 59 U/L (17-59); Alkaline Phosphatase 123 U/L (38-126); Anion Gap 5 mmol/L; Blood Urea Nitrogen 34 mg/dL (9-20); Calcium 7.3 mg/dL (8.4-10.2); Carbon Dioxide 18 mmol/L (22-30); Chloride 115 mmol/L (98-107); Glucose 86 mg/dL (74-99); Non-African American GFR(MDRD) >60 (>60 ml/min/1.73 sqM); Potassium 4.5 mmol/L (3.5-5.1); Sodium 138 mmol/L (137-145); Total Bilirubin 0.3 mg/dL (0.2-1.3); Total Protein 4.5 g/dL (6.3-8.2)
[2017-05-30] MEDS: ERTAPENEM 1 GM in SODIUM CHLORIDE 0.9% 50 ML IVPB SCH (09:10)
--- NOTE | 2017-05-30 10:09 | P.PN ---
Subjective 05/08/17- This is an 82-year-old male patient who came into the emergency department on 05/02/2017 from an extended care facility. Patient was noted to have a potassium of 6.4 at the extended care facility and therefore they sent him over. The patient did not have any further complaints and he has intermittent confusion which is his baseline. EKG performed in the emergency room did show sinus rhythm with occasional PVCs, patient had no ST segment elevation or depression or T-wave abnormalities. The patient was put on lactulose. Hypertension is also being worked up for possible rectal mass and will undergo colonoscopy when stable with Dr. Piña. All labs and reports have been reviewed. Patient is being seen and examined today on the sixth floor for pulmonary services related to progression of shortness of breath over the last few days. He has had a cough however denies any congestion. Nursing staff has denied any sputum production. He is alert and oriented 1 with intermittent confusion. Has been afebrile. Currently is on 3 L of supplemental oxygen via nasal cannula. It is unclear if the patient utilized oxygen in the extended care facility setting. Patient is also on a mechanical soft diet with aspiration precautions. 05/09/17- this patient is being evaluated and examined and seen on rounds today. All labs and reports were reviewed. The patient hyperkalemia has improved. The white blood cell count has come down to 12.8. Patient was noted to have increased lethargy and decreased cognition yesterday afternoon therefore a neurology consult was initiated. Patient is going for a CT of the brain as well as an EEG today. Patient's speech is noted to be slightly slurred and mumbled. Overnight he was noted to refuse care, had increase in agitation, and was refusing food and fluids. and primary care were updated. 05/10/17- this patient is being evaluated exam and seen today on the selective care unit. All labs and reports have been reviewed. Patient appears more awake today than previously. Patient did undergo a CT of the brain and EEG yesterday. Neurology and nephrology is on consult. Patient's prognosis is guarded and he has multiple comorbidities. Upon examination the patient's resting up in bed on room air states he occasionally has shortness of breath with exertion. He denies any cough or congestion at this time. Discharge planning is in process and appears the patient will go back to extended care facility when discharged. 05/11/17- patient is being seen in evaluated and examined today on the fifth floor. Patient is known to be slightly tired however is easily awoken. Currently he is resting up in bed on room air. Patient noticed to have a faint light red flat erythema rash to his right lateral chest. He denies any itching or pain. The area is small and diffuse. We will continue to monitor this. He does have Lotrisone cream for the area. On examination he denies any shortness of breath cough or congestion. Family at bedside updated on plan of care. 05/12/17- patient is being seen examined and evaluated today on the floor. The patient continues to be tired however is easily aroused upon examination. No further progression is noted of his rash to the right lateral chest. On examination patient's resting up in bed on room air. Shortness of breath as noted with exertion. Intermittent cough. He is afebrile, no overnight events. 05/13/17- patient is being seen examined and evaluated today on the floor. On examination the patient is resting in bed on room air, continues with shortness of breath on exertion. According to the nursing staff during breakfast the patient was coughing and choking and has dysphagia diet. Continue swallow evaluation with speech therapy has been ordered. 05/14/17-05/19/[address] Valverde's dictations 05/20/17- patient is being seen examined and evaluated today in the intensive care unit. Currently the patient is resting up in bed on 2 L of supplemental oxygen via nasal cannula. Patient continues to be tachycardic and oxygen dependent. Patient did undergo a procedure for PEG tube and is currently tolerating tube feeds. Chest x-ray has been reviewed from this morning and does show a correlation for CHF, underlying pneumonia not excluded. Upon examination the patient's vasopressors are on hold. We are trying to wean the patient off of pressors at this time. 05/21/17- patient is being seen examined and evaluated today in the intensive care unit. Patient has been noted to have significant tachycardia with episodes of hypotension, he was noted to have increased bowel movements that were loose and dark. Occult blood was sent to lab and came back positive. The patient had FMF in place. Surgical has been updated. Hemoglobin noted to drop from 8.6 this morning now down to 7.3. Orders given for 2 units of packed red blood cells as well as consult interventional radiology for PICC line insertion. chest x-ray from this afternoon revealed improved variation in both lung bases. 05/22/17- patient seen and examined in the ICU remains hypertensive but intermittent continue to have episodes of tachycardia the beta blockers are being used cautiously currently patient heart rate is about 150-160 and appears to be sinus tachycardia Cardizem drip is not working so is being discontinued patient is on IV Lopressor has been on by mouth Lopressor as well he has been transfused with packed RBC indexes of bleeding that has been seen overnight has appears to settle down patient slightly more awake now family is present at bedside care plan discussed with them the advice to proceed with a DO NOT RESUSCITATE CODE STATUS, patient is status post PICC line placement 05/23/17- patient is being seen examined and evaluated today in the intensive care unit. Patient has received a total of 4 units of packed red blood cells. Hemoglobin is noted to drop from 11.8 to 9.4 today. Surgery is also on consult , however he has a high risk candidate. His fecal management system is in place and the stools look less maroon today than previous. He continues to have intermittent confusion. His sodium was noted to be 155 today, as well as a chloride of 129. We have increased his free water flushes via PEG tube to 250 ML's every 6. Upon examination the patient's resting up in bed on 3 L of supplemental oxygen via nasal cannula. He continues to have a dry cough. Currently he is afebrile, no further complaints. 05/24/17-05/27/17- See Dr. Austin note, as he was on for coverage 05/28/17- see Dr. Valverde's progress note 05/29/17- patient is seen examined and evaluated today on the selective care unit. Patient continues to be nonverbal and noncommunicative with intermittent anxiety and confusion. Patient has failed to show any significant improvement, he remains very debilitated, no evidence of any active bleeding is present. Patient has been downgraded to the medical surgical unit. Due to the patient's poor prognosis it has been suggested the patient should be evaluated for hospice , will defer to primary service in that regard. Agent has been receiving nutrition via PEG tube and has been tolerating that well. He continues to have Granados catheter as well as fecal management system. No further bleeding has been noted. 05/30/17- patient is seen examined and evaluated today on rounds. Patient has not shown any signs of improvement, in fact he continues to slowly decline. His prognosis is highly guarded in becoming poor. Hospice was brought up as an option to the however she declined wanting any such services at this time. She wants to continue with treatment. Patient's would like him to go to an extended care facility for further treatment. Patient is a DO NOT RESUSCITATE at this time. Patient continues on 3 L of supplemental oxygen via nasal cannula. He continues to be short of breath with any exertion or activity. Does have a chronic cough. Cough is ineffective in bringing up any secretions. Patient does have PEG tube and is receiving nutrition without any significant residual volumes. Labs and reports for reviewed. Objective - Vital Signs Vital signs: Vital Signs Temp 99.1 F 05/30/17 07:45 Pulse 106 H 05/30/17 07:45 Resp 24 05/30/17 07:45 BP 119/90 05/30/17 07:45 Pulse Ox 98 05/30/17 06:27 Intake & Output 05/29/17 05/30/17 05/30/17 18:59 06:59 18:59 Intake Total 785 195 Output Total 1200 850 Balance -415 -655 Weight 76.5 kg Intake: IV 150 Sodium Chloride 0.45% 1, 150 000 ml @ 75 mls/hr IV . [id number] GLENNA Rx#:[id number] Intake, IV Titration 50 Amount Ertapenem 1 gm In Sodium 50 Chloride 0.9% 50 ml @ 100 mls/hr IVPB DAILY GLENNA Rx #:[id number] Oral 0 0 Tube Feeding 585 195 Output: Urine 250 600 Uretheral (Granados) 600 Stool 950 250 Other: Voiding Method Indwelling Catheter Indwelling Catheter # Voids 1 2 - Exam GENERAL EXAM: Alert, confusion noted which is baseline, comfortable in no apparent distress. HEAD: Normocephalic. EYES: Normal reaction of pupils, equal size. NOSE: Clear with pink turbinates. THROAT: No erythema or exudates. NECK: No masses, no JVD. CHEST: No chest wall deformity. LUNGS: Equal air entry with no crackles, wheeze, rhonchi or dullness. Breath sounds decreased bilaterally. CVS: S1 and S2 normal with no audible mumurs, regular rhythm. ABDOMEN: No hepatosplenomegaly, normal bowel sounds, no guarding or rigidity. PEG tube in place clean dry and intact, FMS in place EXTREMITIES: +2 edema noted, pedal pulses palpable. Chronic skin changes noted , bilateral legs wrapped SKIN: Multiple skin tears, flat erythema diffuse rash to right lateral chest, cream applied CENTRAL NERVOUS SYSTEM: No focal deficits, moves all 4 extremities. - Labs CBC & Chem 7: 05/29/17 05:24 05/30/17 07:33 Labs: Abnormal Lab Results - Last 24 Hours (Table) 05/30/17 Range/Units 07:33 Chloride 115 H (98-107) mmol/L Carbon Dioxide 18 L (22-30) mmol/L BUN 34 H (9-20) mg/dL Calcium 7.3 L (8.4-10.2) mg/dL Total Protein 4.5 L (6.3-8.2) g/dL Albumin 1.8 L (3.5-5.0) g/dL Microbiology - Last 24 Hours (Table) 05/26/17 18:26 Blood Culture - Preliminary Blood No Growth after 72 hours Assessment and Plan Plan: Assessment Supraventricular tachycardia likely related to the intravascular water depletion dehydration and acute blood loss anemia with ongoing intermittent GI loss Recurrent intermittent aspiration with episodes of silent aspiration patient is status post PEG tube placement Urinary tract infection, culture positive for gram negatives bacilli and E. coli , which appears to be ESBL, IVS adjust antibiotics Sepsis with fever, gram-negative Acute hypoxic respiratory failure Hyperkalemia, improved Acute renal failure Urinary tract infection, culture positive for gram negatives bacilli and E. coli Hypernatremia likely related to decreased oral intake Probable rectal mass, currently being worked up Diarrhea History of CVA Hypotension Plan Patient is being worked up to potentially go to extended care facility in the near future. All labs and reports have been reviewed Medications have been reviewed and will be continued as ordered. Patient's prognosis is guarded. Patient did have an interventional radiology consult to have PICC line inserted. Patient known to be resistive to care and medical treatment. Continue to monitor electrolytes. Patient will undergo colonoscopy once cleared , in the outpatient setting. Continue with pulmonary hygiene, coughing and deep breathing exercises, and supportive care. Supplemental oxygen to maintain oxygen saturations of 92% or better. Continue nebulizer treatments in the form of DuoNeb and budesonide. . GI and DVT prophylaxis. Appreciate consults recommendations. Patient is currently being worked up for discharge planning to extended care facility. We will continue to monitor labs/results and adjust treatment as necessary. Further recommendations pending. I performed an examination of the patient and discussed their management with the nurse practitioner. I have reviewed the nurse practitioner's note and agree with the documented findings and plan of care.
[2017-05-30 11:20] LABS: Anisocytosis Slight; Basophils # (A) 0.1 k/uL (0-0.2); Basophils % (A) 0 %; CH 29.3; CHCM 30.3; Eosinophils # (A) 0.9 k/uL (0-0.7); Eosinophils % (A) 5 %; HCT 25.8 % (39.0-53.0); HDW 3.34; HGB 8.1 gm/dL (13.0-17.5); Hypochromasia Marked; Luc % (Auto) 2; Lymphocytes # (A) 1.4 k/uL (1.0-4.8); Lymphocytes % (A) 9 %; MCH 30.8 pg (25.0-35.0); MCHC 31.6 g/dL (31.0-37.0); MCV 97.6 fL (80.0-100.0); Macrocytosis Slight; Mean Platelet Volume 8.7; Monocytes # (A) 0.7 k/uL (0-1.0); Monocytes % (A) 5 %; Neutrophils # (A) 12.8 k/uL (1.3-7.7); Neutrophils % (A) 79 %; RBC 2.64 m/uL (4.30-5.90); RDW 16.7 % (11.5-15.5); WBC 16.2 k/uL (3.8-10.6); WBC (Perox) 16.88
[2017-05-30] MEDS: AMMONIUM LACTATE 12% LOTION 225 GM BTL TOPICAL SCH ×2 (14:01→20:26)
[2017-05-30] MEDS: METOPROLOL TARTRATE 50 MG TAB PO SCH ×2 (14:02→20:25)
[2017-05-30] MEDS: PANTOPRAZOLE 40 MG/10 ML VIAL IVP SCH (14:02)
[2017-05-30] MEDS: BACITRACIN/POLYMYX 500-10,000 UNIT/GM OPHTH OINT 3.5 GM TUBE BOTH EYES SCH ×3 (14:02→20:27)
[2017-05-30] MEDS: ENOXAPARIN 40 MG/0.4 ML SYRINGE SQ SCH (14:02)
[2017-05-30] MEDS: LORATADINE 10 MG TAB PO SCH (14:02)
[2017-05-30] MEDS: SUCRALFATE 1 GM TAB PO SCH ×3 (14:02→20:26)
[2017-05-30] MEDS: SODIUM CHLORIDE 0.45% 1,000 ML IV SCH (14:04)
--- NOTE | 2017-05-30 20:16 | P.PN ---
Subjective Principal diagnosis: sepsis 82-year-old male resident of [facility] was found evidence of multiple abnormal labs included acute renal failure and hyperkalemia. The patient was transferred from the [facility] for further intervention. Infectious diseases consultation was requested when the patient developed a high-grade fever reportedly over 104. the consult was initiated as the patient became febrile, hypotensive and tachycardic. The patient is a poor historian. The patient today is a bit more comfortable than reported last evening. He relates that he has minimal hunger. His mouth is dry. As related lactic acid was drawn which was elevated and had evidence of leukocytosis, the patient was given fluids and antibiotic therapy with Zosyn given the concerns to urinary system as well as potential abdominal source since he was having some diarrhea. As the patient is slightly more comfortable. Has been seen by surgery and is being monitored for a potential colonoscopy in the future. Regarding ongoing treatment for the colonic abscess. No complaints except for fatigue.. As noted there is been the difficulty with his nutrition. Concerns of an aspiration event. PEG tube is been placed and is being utilized at this time under the supervision of surgery. Remains confused. Objective - Vital Signs Vital signs: Vital Signs Temp 98.8 F 05/30/17 20:00 Pulse 98 05/30/17 20:00 Resp 20 05/30/17 20:00 BP 138/82 05/30/17 20:00 Pulse Ox 100 05/30/17 20:00 Intake & Output 05/30/17 05/30/17 05/31/17 06:59 18:59 06:59 Intake Total 195 260 Output Total 850 700 Balance -655 -440 Weight 76.5 kg 76.5 kg Intake: Oral 0 0 Tube Feeding 195 260 Output: Urine 600 700 Uretheral (Granados) 600 200 Stool 250 Other: Voiding Method Indwelling Catheter Indwelling Catheter # Voids 2 0 - Exam 82-year-old male poor historian HEENT: Anicteric conjunctiva are pink and mildly crusty nasal mucosa grossly intact without significant lesions, there is no thrush but the oral cavity is very dry Neck: The neck is supple with no nuchal rigidity, without significant lymphadenopathy or thyromegaly. Lungs: There is symmetrical air entry. Scattered wheezes and basilar crackles are noted. Heart: Irregular with soft S4 no distinct murmur click or rub Abdomen: Positive bowel sounds soft and nontender without palpable masses or organomegaly. There was no guarding or rebound. PEG tube site is intact without erythema or drainage Extremities: The extremities have some minimal trace edema but no significant lesions are seen in the upper extremities. The lower extremities have evidence of the extensive skin lesion the bilateral lower extremities. There is a healing left hip incision which is without erythema crepitance or fluctuance. There is some erythema to the buttocks area. Neuro: Arousable, speech content is poor and inconsistent- is poorly understandable. he however does move arms and legs spontaneously Prior skin rash the chest and abdominal wall have resolved - Labs CBC & Chem 7: 05/30/17 10:56 05/30/17 07:33 Labs: Abnormal Lab Results - Last 24 Hours (Table) 05/30/17 05/30/17 Range/Units 07:33 10:56 WBC 16.2 H (3.8-10.6) k/uL RBC 2.64 L (4.30-5.90) m/uL Hgb 8.1 L (13.0-17.5) gm/dL Hct 25.8 L (39.0-53.0) % RDW 16.7 H (11.5-15.5) % Plt Count 501 H (150-450) k/uL Neutrophils # 12.8 H (1.3-7.7) k/uL Eosinophils # 0.9 H (0-0.7) k/uL Chloride 115 H (98-107) mmol/L Carbon Dioxide 18 L (22-30) mmol/L BUN 34 H (9-20) mg/dL Calcium 7.3 L (8.4-10.2) mg/dL Total Protein 4.5 L (6.3-8.2) g/dL Albumin 1.8 L (3.5-5.0) g/dL Microbiology - Last 24 Hours (Table) 05/26/17 18:26 Blood Culture - Preliminary Blood No Growth after 72 hours Laboratory Results WBC 16.2 k/uL (3.8-10.6) H 05/30/17 10:56 RBC 2.64 m/uL (4.30-5.90) L 05/30/17 10:56 Hgb 8.1 gm/dL (13.0-17.5) L 05/30/17 10:56 Hct 25.8 % (39.0-53.0) L 05/30/17 10:56 MCV 97.6 fL (80.0-100.0) 05/30/17 10:56 MCH 30.8 pg (25.0-35.0) 05/30/17 10:56 MCHC 31.6 g/dL (31.0-37.0) 05/30/17 10:56 RDW 16.7 % (11.5-15.5) H 05/30/17 10:56 Plt Count 501 k/uL (150-450) H 05/30/17 10:56 Neutrophils % 79 % 05/30/17 10:56 Neutrophils % (Manual) 88 % 05/24/17 04:50 Lymphocytes % 9 % 05/30/17 10:56 Lymphocytes % (Manual) 6 % 05/24/17 04:50 Monocytes % 5 % 05/30/17 10:56 Monocytes % (Manual) 4 % 05/24/17 04:50 Eosinophils % 5 % 05/30/17 10:56 Eosinophils % (Manual) 2 % 05/24/17 04:50 Basophils % 0 % 05/30/17 10:56 Neutrophils # 12.8 k/uL (1.3-7.7) H 05/30/17 10:56 Neutrophils # (Manual) 20.68 k/uL (1.3-7.7) H 05/24/17 04:50 Lymphocytes # 1.4 k/uL (1.0-4.8) 05/30/17 10:56 Lymphocytes # (Manual) 1.41 k/uL (1.0-4.8) 05/24/17 04:50 Monocytes # 0.7 k/uL (0-1.0) 05/30/17 10:56 Monocytes # (Manual) 0.94 k/uL (0-1.0) 05/24/17 04:50 Eosinophils # 0.9 k/uL (0-0.7) H 05/30/17 10:56 Eosinophils # (Manual) 0.47 k/uL (0-0.7) 05/24/17 04:50 Basophils # 0.1 k/uL (0-0.2) 05/30/17 10:56 Nucleated RBCs 1 /100 WBC (0-0) H 05/24/17 04:50 Manual Slide Review Performed 05/24/17 04:50 Polychromasia Present 05/24/17 04:50 Hypochromasia Marked 05/30/17 10:56 Poikilocytosis Slight 05/29/17 05:24 Anisocytosis Slight 05/30/17 10:56 Macrocytosis Slight 05/30/17 10:56 PT 11.9 sec (9.0-12.0) 05/19/17 15:46 INR 1.2 (<1.2) H 05/19/17 15:46 APTT 27.9 sec (22.0-30.0) 05/19/17 15:46 Sodium 138 mmol/L (137-145) 05/30/17 07:33 Potassium 4.5 mmol/L (3.5-5.1) 05/30/17 07:33 Chloride 115 mmol/L (98-107) H 05/30/17 07:33 Carbon Dioxide 18 mmol/L (22-30) L 05/30/17 07:33 Anion Gap 5 mmol/L 05/30/17 07:33 BUN 34 mg/dL (9-20) H 05/30/17 07:33 Creatinine 0.89 mg/dL (0.66-1.25) 05/30/17 07:33 Est GFR (MDRD) Af Amer >60 (>60 ml/min/1.73 sqM) 05/30/17 07:33 Est GFR (MDRD) Non-Af >60 (>60 ml/min/1.73 sqM) 05/30/17 07:33 Glucose 86 mg/dL (74-99) 05/30/17 07:33 POC Glucose (mg/dL) 130 mg/dL (75-99) H 05/25/17 08:03 POC Glu Director Of Online Merchandising ID García Pulido A 05/25/17 08:03 Lactic Ac Sepsis Rflx Y 05/19/17 16:27 Plasma Lactic Acid Froy 1.7 mmol/L (0.7-2.0) 05/19/17 19:46 Calcium 7.3 mg/dL (8.4-10.2) L 05/30/17 07:33 Phosphorus 2.0 mg/dL (2.5-4.5) L 05/26/17 04:40 Magnesium 2.2 mg/dL (1.6-2.3) 05/26/17 04:40 Total Bilirubin 0.3 mg/dL (0.2-1.3) 05/30/17 07:33 AST 59 U/L (17-59) 05/30/17 07:33 ALT 43 U/L (21-72) 05/30/17 07:33 Alkaline Phosphatase 123 U/L (38-126) 05/30/17 07:33 Total Creatine Kinase 83 U/L (55-170) 05/20/17 04:16 CK-MB (CK-2) 1.9 ng/mL (0.0-2.4) 05/20/17 04:16 CK-MB (CK-2) Rel Index 2.3 05/20/17 04:16 Troponin I 0.031 ng/mL (0.000-0.034) 05/20/17 04:16 Total Protein 4.5 g/dL (6.3-8.2) L 05/30/17 07:33 Albumin 1.8 g/dL (3.5-5.0) L 05/30/17 07:33 Cortisol 24 ug/dL 05/19/17 15:46 Urine Color Yellow 05/19/17 17:05 Urine Appearance Cloudy (Clear) 05/19/17 17:05 Urine pH 5.5 (5.0-8.0) 05/19/17 17:05 Ur Specific [place] 1.015 (1.001-1.035) 05/19/17 17:05 Urine Protein 1+ (Negative) H 05/19/17 17:05 Urine Glucose (UA) Negative (Negative) 05/19/17 17:05 Urine Ketones Negative (Negative) 05/19/17 17:05 Urine Blood Small (Negative) H 05/19/17 17:05 Urine Nitrite Negative (Negative) 05/19/17 17:05 Urine Bilirubin Negative (Negative) 05/19/17 17:05 Urine Urobilinogen 3.0 mg/dL (<2.0) 05/19/17 17:05 Ur Leukocyte Esterase Large (Negative) H 05/19/17 17:05 Urine RBC 35 /hpf (0-5) H 05/19/17 17:05 Urine WBC 179 /hpf (0-5) H 05/19/17 17:05 Urine WBC Clumps Few /hpf (None) H 05/02/17 19:18 Urine Bacteria Rare /hpf (None) H 05/19/17 17:05 Hyaline Casts 3 /lpf (0-2) H 05/19/17 17:05 Urine Mucus Rare /hpf (None) H 05/19/17 17:05 Urine Yeast (Budding) Occasional /hpf (None) H 05/19/17 17:05 Stool Occult Blood Positive (Negative) 05/21/17 09:30 C. difficile (EIA) Intrp Negative (Negative) 05/03/17 15:54 Blood Type O Positive 05/21/17 15:25 Blood Type Recheck No 05/21/17 15:25 Antibody Screen NEGATIVE 05/21/17 15:25 Crossmatch See Detail 05/21/17 15:25 Spec Expiration Date 05/24/2017 - 0154 05/21/17 15:25 Microbiology 05/26/17 18:26 Blood Blood Culture - Preliminary No Growth after 72 hours 05/19/17 19:46 Blood Blood Culture - Final No Growth after 144 hours 05/19/17 18:30 Blood Blood Culture - Final No Growth after 144 hours 05/19/17 17:05 Urine,Catheterized Urine Culture - Final 05/04/17 23:29 Blood Blood Culture - Final No Growth after 144 hours 05/03/17 17:57 Blood Blood Culture - Final No Growth after 144 hours 05/03/17 03:00 Urine,Catheterized Urine Culture - Final Escherichia coli Assessment and Plan (1) Gram-negative sepsis with organ dysfunction Narrative/Plan: 82-year-old male transferred from extended care facility for alteration of his status. We'll request performed there was evidence of leukocytosis, acute renal failure, hyperkalemia. With this he was transferred to Hospital and is now received intervention and has been seen by nephrology. Because of his illness computed tomography scan of the abdomen and pelvis was performed showing evidence of the significant cecal dilatation and concerns to infection and abscess at that site. The patient has been seen by surgery and will plan colonoscopy when he is medically cleared. At the time of the consult fluid bolus was given since his computed tomography scan did not show evidence of heart failure. Antipyretics were given. The patient defervesced and his significant tachycardia and hypotension resolved. The patient has remained on selective care. His CODE STATUS is full, and apparently this has been addressed with the family and they do not yet understand the current ramifications of his illness. Ongoing discussion shall be held for more appropriate CODE STATUS. He has had a significant leukocytosis whichpersistant. There is evidence of urine culture with E. coli. His fever has resolved. Antibiotic therapy with Zosyn was initiated with concerns to the abdominal sepsis. We will also give coverage for his urinary tract infection based on prior cultures. He does have some crustiness to his eyes and Polysporin was given with improvement. His legs are wrapped continue the ulcer on the dorsum of the right foot. Local wound care as changed to medical Honey to try to debrided this better. Continue to wrap the legs. The dressing changes can be performed every other day. Assessment followed by surgery. Will need outpatient endoscopic evaluation if possible. There is been a significant leukocytosis minimal improvement. The patient had had adequate treatment for his urinary infection but was still receiving some antibiotic therapy for the abdominal infection. The conversion to oral therapy was noteffective His leukocytosis had increased and developed a bit of a rash possibly from the antibiotic therapy. With antibiotic change the rash is resolved There is concerns to an aspiration event in the ertapenem should give us coverage also. DO NOT RESUSCITATE status has now been accomplished. Plan to complete antibiotics in a week, but still has leukocytosis. It is related the family has declined hospice. Would suggest a follow-up computed tomography scan ensure there some improvement of the abscess. Status: Acute (2) Acute renal failure Status: Acute (3) Hyperkalemia Status: Acute (4) UTI (urinary tract infection) Status: Acute
[2017-05-31] MEDS: BACITRACIN/POLYMYX 500-10,000 UNIT/GM OPHTH OINT 3.5 GM TUBE BOTH EYES SCH ×5 (01:34→23:02)
[2017-05-31] MEDS: METOPROLOL TARTRATE 50 MG TAB PO SCH ×4 (01:34→23:01)
[2017-05-31] MEDS: SUCRALFATE 1 GM TAB PO SCH ×5 (01:35→23:01)
[2017-05-31] MEDS: SODIUM CHLORIDE 0.45% 1,000 ML IV SCH ×2 (01:35→07:36)
[2017-05-31] MEDS: IPRATROPIUM-ALBUTEROL 3 ML NEB INHALATION SCH ×3 (07:21→21:18)
[2017-05-31] MEDS: BUDESONIDE 0.5 MG/2 ML NEBU INHALATION SCH ×2 (07:21→21:18)
[2017-05-31 08:20] LABS: Anisocytosis Slight; Basophils # (A) 0.1 k/uL (0-0.2); Basophils % (A) 0 %; CH 30.6; Eosinophils # (A) 0.7 k/uL (0-0.7); Eosinophils % (A) 4 %; HCT 26.6 % (39.0-53.0); HDW 3.32; HGB 7.9 gm/dL (13.0-17.5); Hypochromasia Moderate; Luc # (Auto) 0.29; Luc % (Auto) 2; Lymphocytes # (A) 1.4 k/uL (1.0-4.8); Lymphocytes % (A) 8 %; MCH 29.7 pg (25.0-35.0); MCHC 29.7 g/dL (31.0-37.0); MCV 99.7 fL (80.0-100.0); Macrocytosis Slight; Mean Platelet Volume 8.9; Monocytes # (A) 0.9 k/uL (0-1.0); Monocytes % (A) 5 %; Neutrophils # (A) 14.2 k/uL (1.3-7.7); Neutrophils % (A) 81 %; RBC 2.67 m/uL (4.30-5.90); RDW 16.9 % (11.5-15.5); WBC 17.5 k/uL (3.8-10.6); WBC (Perox) 18.22
[2017-05-31 08:29] LABS: ALT 40 U/L (21-72); AST 52 U/L (17-59); Alkaline Phosphatase 118 U/L (38-126); Anion Gap 6 mmol/L; Blood Urea Nitrogen 31 mg/dL (9-20); Calcium 7.5 mg/dL (8.4-10.2); Carbon Dioxide 19 mmol/L (22-30); Chloride 113 mmol/L (98-107); Glucose 99 mg/dL (74-99); Non-African American GFR(MDRD) >60 (>60 ml/min/1.73 sqM); Potassium 4.5 mmol/L (3.5-5.1); Sodium 138 mmol/L (137-145); Total Bilirubin 0.2 mg/dL (0.2-1.3); Total Protein 4.5 g/dL (6.3-8.2)
--- NOTE | 2017-05-31 10:25 | P.PN ---
Subjective 05/08/17- This is an 82-year-old male patient who came into the emergency department on 05/02/2017 from an extended care facility. Patient was noted to have a potassium of 6.4 at the extended care facility and therefore they sent him over. The patient did not have any further complaints and he has intermittent confusion which is his baseline. EKG performed in the emergency room did show sinus rhythm with occasional PVCs, patient had no ST segment elevation or depression or T-wave abnormalities. The patient was put on lactulose. Hypertension is also being worked up for possible rectal mass and will undergo colonoscopy when stable with Dr. Piña. All labs and reports have been reviewed. Patient is being seen and examined today on the sixth floor for pulmonary services related to progression of shortness of breath over the last few days. He has had a cough however denies any congestion. Nursing staff has denied any sputum production. He is alert and oriented 1 with intermittent confusion. Has been afebrile. Currently is on 3 L of supplemental oxygen via nasal cannula. It is unclear if the patient utilized oxygen in the extended care facility setting. Patient is also on a mechanical soft diet with aspiration precautions. 05/09/17- this patient is being evaluated and examined and seen on rounds today. All labs and reports were reviewed. The patient hyperkalemia has improved. The white blood cell count has come down to 12.8. Patient was noted to have increased lethargy and decreased cognition yesterday afternoon therefore a neurology consult was initiated. Patient is going for a CT of the brain as well as an EEG today. Patient's speech is noted to be slightly slurred and mumbled. Overnight he was noted to refuse care, had increase in agitation, and was refusing food and fluids. and primary care were updated. 05/10/17- this patient is being evaluated exam and seen today on the selective care unit. All labs and reports have been reviewed. Patient appears more awake today than previously. Patient did undergo a CT of the brain and EEG yesterday. Neurology and nephrology is on consult. Patient's prognosis is guarded and he has multiple comorbidities. Upon examination the patient's resting up in bed on room air states he occasionally has shortness of breath with exertion. He denies any cough or congestion at this time. Discharge planning is in process and appears the patient will go back to extended care facility when discharged. 05/11/17- patient is being seen in evaluated and examined today on the fifth floor. Patient is known to be slightly tired however is easily awoken. Currently he is resting up in bed on room air. Patient noticed to have a faint light red flat erythema rash to his right lateral chest. He denies any itching or pain. The area is small and diffuse. We will continue to monitor this. He does have Lotrisone cream for the area. On examination he denies any shortness of breath cough or congestion. Family at bedside updated on plan of care. 05/12/17- patient is being seen examined and evaluated today on the floor. The patient continues to be tired however is easily aroused upon examination. No further progression is noted of his rash to the right lateral chest. On examination patient's resting up in bed on room air. Shortness of breath as noted with exertion. Intermittent cough. He is afebrile, no overnight events. 05/13/17- patient is being seen examined and evaluated today on the floor. On examination the patient is resting in bed on room air, continues with shortness of breath on exertion. According to the nursing staff during breakfast the patient was coughing and choking and has dysphagia diet. Continue swallow evaluation with speech therapy has been ordered. 05/14/17-05/19/[address] Valverde's dictations 05/20/17- patient is being seen examined and evaluated today in the intensive care unit. Currently the patient is resting up in bed on 2 L of supplemental oxygen via nasal cannula. Patient continues to be tachycardic and oxygen dependent. Patient did undergo a procedure for PEG tube and is currently tolerating tube feeds. Chest x-ray has been reviewed from this morning and does show a correlation for CHF, underlying pneumonia not excluded. Upon examination the patient's vasopressors are on hold. We are trying to wean the patient off of pressors at this time. 05/21/17- patient is being seen examined and evaluated today in the intensive care unit. Patient has been noted to have significant tachycardia with episodes of hypotension, he was noted to have increased bowel movements that were loose and dark. Occult blood was sent to lab and came back positive. The patient had FMF in place. Surgical has been updated. Hemoglobin noted to drop from 8.6 this morning now down to 7.3. Orders given for 2 units of packed red blood cells as well as consult interventional radiology for PICC line insertion. chest x-ray from this afternoon revealed improved variation in both lung bases. 05/22/17- patient seen and examined in the ICU remains hypertensive but intermittent continue to have episodes of tachycardia the beta blockers are being used cautiously currently patient heart rate is about 150-160 and appears to be sinus tachycardia Cardizem drip is not working so is being discontinued patient is on IV Lopressor has been on by mouth Lopressor as well he has been transfused with packed RBC indexes of bleeding that has been seen overnight has appears to settle down patient slightly more awake now family is present at bedside care plan discussed with them the advice to proceed with a DO NOT RESUSCITATE CODE STATUS, patient is status post PICC line placement 05/23/17- patient is being seen examined and evaluated today in the intensive care unit. Patient has received a total of 4 units of packed red blood cells. Hemoglobin is noted to drop from 11.8 to 9.4 today. Surgery is also on consult , however he has a high risk candidate. His fecal management system is in place and the stools look less maroon today than previous. He continues to have intermittent confusion. His sodium was noted to be 155 today, as well as a chloride of 129. We have increased his free water flushes via PEG tube to 250 ML's every 6. Upon examination the patient's resting up in bed on 3 L of supplemental oxygen via nasal cannula. He continues to have a dry cough. Currently he is afebrile, no further complaints. 05/24/17-05/27/17- See Dr. Austin note, as he was on for coverage 05/28/17- see Dr. Valverde's progress note 05/29/17- patient is seen examined and evaluated today on the selective care unit. Patient continues to be nonverbal and noncommunicative with intermittent anxiety and confusion. Patient has failed to show any significant improvement, he remains very debilitated, no evidence of any active bleeding is present. Patient has been downgraded to the medical surgical unit. Due to the patient's poor prognosis it has been suggested the patient should be evaluated for hospice , will defer to primary service in that regard. Agent has been receiving nutrition via PEG tube and has been tolerating that well. He continues to have Granados catheter as well as fecal management system. No further bleeding has been noted. 05/30/17- patient is seen examined and evaluated today on rounds. Patient has not shown any signs of improvement, in fact he continues to slowly decline. His prognosis is highly guarded in becoming poor. Hospice was brought up as an option to the however she declined wanting any such services at this time. She wants to continue with treatment. Patient's would like him to go to an extended care facility for further treatment. Patient is a DO NOT RESUSCITATE at this time. Patient continues on 3 L of supplemental oxygen via nasal cannula. He continues to be short of breath with any exertion or activity. Does have a chronic cough. Cough is ineffective in bringing up any secretions. Patient does have PEG tube and is receiving nutrition without any significant residual volumes. Labs and reports for reviewed. 05/31/17- she has seen examined and evaluated today on rounds. Patient currently resting in bed on 3 L of supplemental oxygen via nasal cannula. His shortness of breath continues and is unchanged. The chronic cough as well as ineffective cough also unchanged. Patient is receiving nutritional support via PEG tube without any significant residual volumes. Discharge planning is in place to possibly ECF in the near future. He is afebrile, no overnight events. All labs and reports been reviewed. Objective - Vital Signs Vital signs: Vital Signs Temp 100.0 F H 05/31/17 07:50 Pulse 118 H 05/31/17 07:50 Resp 30 H 05/31/17 07:50 BP 140/68 05/31/17 07:50 Pulse Ox 96 05/31/17 07:50 Intake & Output 05/30/17 05/31/17 05/31/17 18:59 06:59 18:59 Intake Total 260 1783 65 Output Total 700 1100 500 Balance -440 603 435 Weight 76.5 kg 77.5 kg Intake: Intake, IV Titration 1523 Amount Sodium Chloride 0.45% 1, 1523 000 ml @ 75 mls/hr IV . [id number] [facility] Rx#:[id number] Oral 0 0 Tube Feeding 260 260 65 Output: Urine 700 1100 500 Uretheral (Granados) 200 600 500 Other: Voiding Method Indwelling Catheter # Voids 0 0 - Exam GENERAL EXAM: Alert, confusion noted which is baseline, comfortable in no apparent distress. HEAD: Normocephalic. EYES: Normal reaction of pupils, equal size. NOSE: Clear with pink turbinates. THROAT: No erythema or exudates. NECK: No masses, no JVD. CHEST: No chest wall deformity. LUNGS: Equal air entry with no crackles, wheeze, rhonchi or dullness. Breath sounds decreased bilaterally. CVS: S1 and S2 normal with no audible mumurs, regular rhythm. ABDOMEN: No hepatosplenomegaly, normal bowel sounds, no guarding or rigidity. PEG tube in place clean dry and intact, FMS in place EXTREMITIES: +2 edema noted, pedal pulses palpable. Chronic skin changes noted , bilateral legs wrapped SKIN: Multiple skin tears, flat erythema diffuse rash to right lateral chest, cream applied CENTRAL NERVOUS SYSTEM: No focal deficits, moves all 4 extremities. - Labs CBC & Chem 7: 05/31/17 07:42 05/31/17 07:49 Labs: Abnormal Lab Results - Last 24 Hours (Table) 05/30/17 05/31/17 05/31/17 Range/Units 10:56 07:42 07:49 WBC 16.2 H 17.5 H (3.8-10.6) k/uL RBC 2.64 L 2.67 L (4.30-5.90) m/uL Hgb 8.1 L 7.9 L (13.0-17.5) gm/dL Hct 25.8 L 26.6 L (39.0-53.0) % MCHC 29.7 L (31.0-37.0) g/dL RDW 16.7 H 16.9 H (11.5-15.5) % Plt Count 501 H 541 H (150-450) k/uL Neutrophils # 12.8 H 14.2 H (1.3-7.7) k/uL Eosinophils # 0.9 H (0-0.7) k/uL Chloride 113 H (98-107) mmol/L Carbon Dioxide 19 L (22-30) mmol/L BUN 31 H (9-20) mg/dL Calcium 7.5 L (8.4-10.2) mg/dL Total Protein 4.5 L (6.3-8.2) g/dL Albumin 1.8 L (3.5-5.0) g/dL Microbiology - Last 24 Hours (Table) 05/26/17 18:26 Blood Culture - Preliminary Blood No Growth after 96 hours Assessment and Plan Plan: Assessment Supraventricular tachycardia likely related to the intravascular water depletion dehydration and acute blood loss anemia with ongoing intermittent GI loss Recurrent intermittent aspiration with episodes of silent aspiration patient is status post PEG tube placement Urinary tract infection, culture positive for gram negatives bacilli and E. coli , which appears to be ESBL, IVS adjust antibiotics Sepsis with fever, gram-negative Acute hypoxic respiratory failure Hyperkalemia, improved Acute renal failure Urinary tract infection, culture positive for gram negatives bacilli and E. coli Hypernatremia likely related to decreased oral intake Probable rectal mass, currently being worked up Diarrhea History of CVA Hypotension Plan Patient is being worked up to potentially go to extended care facility in the near future. All labs and reports have been reviewed Medications have been reviewed and will be continued as ordered. Patient's prognosis is guarded. Patient did have an interventional radiology consult to have PICC line inserted. Patient known to be resistive to care and medical treatment. Continue to monitor electrolytes. Patient will undergo colonoscopy once cleared , in the outpatient setting. Continue with pulmonary hygiene, coughing and deep breathing exercises, and supportive care. Supplemental oxygen to maintain oxygen saturations of 92% or better. Continue nebulizer treatments in the form of DuoNeb and budesonide. . GI and DVT prophylaxis. Appreciate consults recommendations. Patient is currently being worked up for discharge planning to extended care facility. We will continue to monitor labs/results and adjust treatment as necessary. Further recommendations pending. I performed an examination of the patient and discussed their management with the nurse practitioner. I have reviewed the nurse practitioner's note and agree with the documented findings and plan of care.
[2017-05-31] MEDS: AMMONIUM LACTATE 12% LOTION 225 GM BTL TOPICAL SCH ×2 (10:38→23:02)
[2017-05-31] MEDS: ENOXAPARIN 40 MG/0.4 ML SYRINGE SQ SCH (10:39)
[2017-05-31] MEDS: LORATADINE 10 MG TAB PO SCH (10:40)
[2017-05-31] MEDS: ERTAPENEM 1 GM in SODIUM CHLORIDE 0.9% 50 ML IVPB SCH ×2 (10:40→12:10)
[2017-05-31] MEDS: PANTOPRAZOLE 40 MG/10 ML VIAL IVP SCH (10:41)
--- NOTE | 2017-05-31 15:28 | XR ---
EXAMINATION TYPE: XR chest 1V portable DATE OF EXAM: 05/31/2017 CLINICAL HISTORY: CHF per order. TECHNIQUE: Single AP portable semiupright view of the chest is obtained. COMPARISON: Chest x-ray from May 22, 2017 FINDINGS: There is interval removal of left-sided PICC line. Low lung volumes are redemonstrated. Th ere is patchy bibasilar atelectasis redemonstrated. Upper lungs remain clear without pneumothorax. Ca rdiac silhouette size is stable and upper limits of normal with atherosclerotic thoracic aorta. [place] us structures are demineralized. IMPRESSION: Low lung volumes with patchy bibasilar atelectasis redemonstrated. There is perhaps stabl e mild central vascular congestion bilaterally noted.
--- NOTE | 2017-05-31 16:00 | PN ---
PROGRESS NOTE DATE OF SERVICE: 05/31/2017 I am covering for Dr. Anderson. This 82-year-old gentleman who was admitted with ESBL E coli sepsis also had multiple medical problems. The patient is still stuporous. PEG tube was inserted. The possibility of ECF rehab is being considered. PICC line is also being planned. Past medical history reviewed. Review of systems could not be taken. CURRENT MEDICATIONS: The current medications are reviewed and include: 1. Tylenol 650 q.4 p.r.n. 2. [place] 7.5 p.r.n. 3. DuoNeb q.i.d. and p.r.n. 4. Polysporin. 5. Pulmicort 0.5 b.i.d. 6. Valium 2.5 mg q.8. 7. Lovenox 40 mg subcutaneously. 8. Ertapenem 1 gram daily. 9. Claritin. 10.Ativan. 11.Lopressor. 12.Magnesium replacement protocol. PHYSICAL EXAM: Patient is (). Pulse is 104, blood pressure 134/72, respiration 26, temperature 99.6, pulse ox 99% on 2 L. HEENT: Conjunctivae normal. Oral mucosa moist. NECK: No jugular venous distention. No carotid bruit. No lymph node enlargement. CARDIOVASCULAR SYSTEM: S1, S2 muffled. RESPIRATION: Breath sounds diminished at the bases. Bilateral scattered rhonchi and crackles. ABDOMEN: Soft, non-tender. LEGS: No edema. No swelling. NERVOUS SYSTEM: No focal deficit. LABS: WBC 17.5, hemoglobin 7.9. ASSESSMENT: 1. Acute urinary tract infection with sepsis, ESBL E coli, present on admission. 2. Acute renal failure. 3. Change in mental status; acute metabolic encephalopathy. 4. Gram-negative sepsis. 5. Sinus tachycardia. 6. History of cerebrovascular accident, transient ischemic attack. 7. Hypernatremia, improved. 8. Status post PEG tube placement. 9. Anemia; possibly acute blood-loss anemia from GI bleed. 10.Increased white count. 11.Hypoalbuminemia with severe protein-calorie malnutrition. 12.NO CODE, NO CPR, NO VENT. RECOMMENDATIONS AND DISCUSSION: I recommend to continue current medication, continue with the monitoring, symptomatic treatment. Otherwise at this time I would recommend repeat chest x-ray. I would also recommend a repeat CT scan of the abdomen and pelvis. No contrast will be utilized because of concerns about renal failure. The prognosis is extremely guarded. The patient is still on IV antibiotics. Once the patient is stabilized, ECF rehab may be an option. Further recommendations to follow. MMODL / IJN: [id number] /
[2017-05-31 17:37] LABS: VBG PH 7.33 (7.31-7.41)
--- NOTE | 2017-05-31 18:01 | P.PN ---
Subjective Principal diagnosis: sepsis 82-year-old male resident of [facility] was found evidence of multiple abnormal labs included acute renal failure and hyperkalemia. The patient was transferred from the [facility] [place] for further intervention. Infectious diseases consultation was requested when the patient developed a high-grade fever reportedly over 104. the consult was initiated as the patient became febrile, hypotensive and tachycardic. The patient is a poor historian. The patient today is a bit more comfortable than reported last evening. He relates that he has minimal hunger. His mouth is dry. As related lactic acid was drawn which was elevated and had evidence of leukocytosis, the patient was given fluids and antibiotic therapy with Zosyn given the concerns to urinary system as well as potential abdominal source since he was having some diarrhea. As the patient is slightly more comfortable. Has been seen by surgery and is being monitored for a potential colonoscopy in the future. Regarding ongoing treatment for the colonic abscess. No complaints except for fatigue.. As noted there is been the difficulty with his nutrition. Concerns of an aspiration event. PEG tube is been placed and is being utilized at this time under the supervision of surgery. Remains confused. Objective - Vital Signs Vital signs: Vital Signs Temp 98.2 F 05/31/17 15:00 Pulse 106 H 05/31/17 15:00 Resp 32 H 05/31/17 15:00 BP 140/68 05/31/17 15:00 Pulse Ox 100 05/31/17 15:00 Intake & Output 05/30/17 05/31/17 05/31/17 18:59 06:59 18:59 Intake Total 260 1783 220 Output Total 700 1100 500 Balance -440 683 -280 Weight 76.5 kg 77.5 kg 77.5 kg Intake: Intake, IV Titration 1523 Amount Sodium Chloride 0.45% 1, 1523 000 ml @ 75 mls/hr IV . [id number] [facility] Rx#:[id number] Oral 0 0 Tube Feeding 260 260 220 Output: Urine 700 1100 500 Uretheral ([place]) 200 600 500 Other: Voiding Method Indwelling Catheter Indwelling Catheter # Voids 0 0 - Exam 82-year-old male poor historian HEENT: Anicteric conjunctiva are pink and mildly crusty nasal mucosa grossly intact without significant lesions, there is no thrush but the oral cavity is very dry Neck: The neck is supple with no nuchal rigidity, without significant lymphadenopathy or thyromegaly. Lungs: There is symmetrical air entry. Scattered wheezes and basilar crackles are noted. Heart: Irregular with soft S4 no distinct murmur click or rub Abdomen: Positive bowel sounds soft and nontender without palpable masses or organomegaly. There was no guarding or rebound. PEG tube site is intact without erythema or drainage Extremities: The extremities have some minimal trace edema in the upper extremities have multiple weeping areas. The lower extremities have evidence of the extensive skin lesion the bilateral lower extremities. There is a healing left hip incision which is without erythema crepitance or fluctuance. There is some erythema to the buttocks area. Neuro: Arousable, speech content is poor and inconsistent- is poorly understandable. he however does move arms and legs spontaneously - Labs CBC & Chem 7: 05/31/17 07:42 05/31/17 07:49 Labs: Abnormal Lab Results - Last 24 Hours (Table) 05/31/17 05/31/17 05/31/17 Range/Units 07:42 07:49 17:17 WBC 17.5 H (3.8-10.6) k/uL RBC 2.67 L (4.30-5.90) m/uL Hgb 7.9 L (13.0-17.5) gm/dL Hct 26.6 L (39.0-53.0) % MCHC 29.7 L (31.0-37.0) g/dL RDW 16.9 H (11.5-15.5) % Plt Count 541 H (150-450) k/uL Neutrophils # 14.2 H (1.3-7.7) k/uL VBG HCO3 22 L (24-28) mmol/L Chloride 113 H (98-107) mmol/L Carbon Dioxide 19 L (22-30) mmol/L BUN 31 H (9-20) mg/dL Calcium 7.5 L (8.4-10.2) mg/dL Total Protein 4.5 L (6.3-8.2) g/dL Albumin 1.8 L (3.5-5.0) g/dL Microbiology - Last 24 Hours (Table) 05/26/17 18:26 Blood Culture - Preliminary Blood No Growth after 96 hours Laboratory Results WBC 17.5 k/uL (3.8-10.6) H 05/31/17 07:42 RBC 2.67 m/uL (4.30-5.90) L 05/31/17 07:42 Hgb 7.9 gm/dL (13.0-17.5) L 05/31/17 07:42 Hct 26.6 % (39.0-53.0) L 05/31/17 07:42 MCV 99.7 fL (80.0-100.0) 05/31/17 07:42 MCH 29.7 pg (25.0-35.0) 05/31/17 07:42 MCHC 29.7 g/dL (31.0-37.0) L 05/31/17 07:42 RDW 16.9 % (11.5-15.5) H 05/31/17 07:42 Plt Count 541 k/uL (150-450) H 05/31/17 07:42 Neutrophils % 81 % 05/31/17 07:42 Neutrophils % (Manual) 88 % 05/24/17 04:50 Lymphocytes % 8 % 05/31/17 07:42 Lymphocytes % (Manual) 6 % 05/24/17 04:50 Monocytes % 5 % 05/31/17 07:42 Monocytes % (Manual) 4 % 05/24/17 04:50 Eosinophils % 4 % 05/31/17 07:42 Eosinophils % (Manual) 2 % 05/24/17 04:50 Basophils % 0 % 05/31/17 07:42 Neutrophils # 14.2 k/uL (1.3-7.7) H 05/31/17 07:42 Neutrophils # (Manual) 20.68 k/uL (1.3-7.7) H 05/24/17 04:50 Lymphocytes # 1.4 k/uL (1.0-4.8) 05/31/17 07:42 Lymphocytes # (Manual) 1.41 k/uL (1.0-4.8) 05/24/17 04:50 Monocytes # 0.9 k/uL (0-1.0) 05/31/17 07:42 Monocytes # (Manual) 0.94 k/uL (0-1.0) 05/24/17 04:50 Eosinophils # 0.7 k/uL (0-0.7) 05/31/17 07:42 Eosinophils # (Manual) 0.47 k/uL (0-0.7) 05/24/17 04:50 Basophils # 0.1 k/uL (0-0.2) 05/31/17 07:42 Nucleated RBCs 1 /100 WBC (0-0) H 05/24/17 04:50 Manual Slide Review Performed 05/24/17 04:50 Polychromasia Present 05/24/17 04:50 Hypochromasia Moderate 05/31/17 07:42 Poikilocytosis Slight 05/29/17 05:24 Anisocytosis Slight 05/31/17 07:42 Macrocytosis Slight 05/31/17 07:42 PT 11.9 sec (9.0-12.0) 05/19/17 15:46 INR 1.2 (<1.2) H 05/19/17 15:46 APTT 27.9 sec (22.0-30.0) 05/19/17 15:46 VBG pH 7.33 (7.31-7.41) 05/31/17 17:17 VBG pCO2 44 mmHg (37-51) 05/31/17 17:17 VBG HCO3 22 mmol/L (24-28) L 05/31/17 17:17 Sodium 138 mmol/L (137-145) 05/31/17 07:49 Potassium 4.5 mmol/L (3.5-5.1) 05/31/17 07:49 Chloride 113 mmol/L (98-107) H 05/31/17 07:49 Carbon Dioxide 19 mmol/L (22-30) L 05/31/17 07:49 Anion Gap 6 mmol/L 05/31/17 07:49 BUN 31 mg/dL (9-20) H 05/31/17 07:49 Creatinine 0.86 mg/dL (0.66-1.25) 05/31/17 07:49 Est GFR (MDRD) Af Amer >60 (>60 ml/min/1.73 sqM) 05/31/17 07:49 Est GFR (MDRD) Non-Af >60 (>60 ml/min/1.73 sqM) 05/31/17 07:49 Glucose 99 mg/dL (74-99) 05/31/17 07:49 POC Glucose (mg/dL) 130 mg/dL (75-99) H 05/25/17 08:03 POC Glu Horticulture Instructor ID García Pulido A 05/25/17 08:03 Lactic Ac Sepsis Rflx Y 05/19/17 16:27 Plasma Lactic Acid [place] 1.7 mmol/L (0.7-2.0) 05/19/17 19:46 Calcium 7.5 mg/dL (8.4-10.2) L 05/31/17 07:49 Phosphorus 2.0 mg/dL (2.5-4.5) L 05/26/17 04:40 Magnesium 2.2 mg/dL (1.6-2.3) 05/26/17 04:40 Total Bilirubin 0.2 mg/dL (0.2-1.3) 05/31/17 07:49 AST 52 U/L (17-59) 05/31/17 07:49 ALT 40 U/L (21-72) 05/31/17 07:49 Alkaline Phosphatase 118 U/L (38-126) 05/31/17 07:49 Total Creatine Kinase 83 U/L (55-170) 05/20/17 04:16 CK-MB (CK-2) 1.9 ng/mL (0.0-2.4) 05/20/17 04:16 CK-MB (CK-2) Rel Index 2.3 05/20/17 04:16 Troponin I 0.031 ng/mL (0.000-0.034) 05/20/17 04:16 Total Protein 4.5 g/dL (6.3-8.2) L 05/31/17 07:49 Albumin 1.8 g/dL (3.5-5.0) L 05/31/17 07:49 Cortisol 24 ug/dL 05/19/17 15:46 Urine Color Yellow 05/19/17 17:05 Urine Appearance Cloudy (Clear) 05/19/17 17:05 Urine pH 5.5 (5.0-8.0) 05/19/17 17:05 Ur Specific [place] 1.015 (1.001-1.035) 05/19/17 17:05 Urine Protein 1+ (Negative) H 05/19/17 17:05 Urine Glucose (UA) Negative (Negative) 05/19/17 17:05 Urine Ketones Negative (Negative) 05/19/17 17:05 Urine Blood Small (Negative) H 05/19/17 17:05 Urine Nitrite Negative (Negative) 05/19/17 17:05 Urine Bilirubin Negative (Negative) 05/19/17 17:05 Urine Urobilinogen 3.0 mg/dL (<2.0) 05/19/17 17:05 Ur Leukocyte Esterase Large (Negative) H 05/19/17 17:05 Urine RBC 35 /hpf (0-5) H 05/19/17 17:05 Urine WBC 179 /hpf (0-5) H 05/19/17 17:05 Urine WBC Clumps Few /hpf (None) H 05/02/17 19:18 Urine Bacteria Rare /hpf (None) H 05/19/17 17:05 Hyaline Casts 3 /lpf (0-2) H 05/19/17 17:05 Urine Mucus Rare /hpf (None) H 05/19/17 17:05 Urine Yeast ([place]) Occasional /hpf (None) H 05/19/17 17:05 Stool Occult Blood Positive (Negative) 05/21/17 09:30 C. difficile (EIA) Intrp Negative (Negative) 05/03/17 15:54 Blood Type O Positive 05/21/17 15:25 Blood Type Recheck No 05/21/17 15:25 Antibody Screen NEGATIVE 05/21/17 15:25 Crossmatch See Detail 05/21/17 15:25 Spec Expiration Date 05/24/2017 [id number] 05/21/17 15:25 Microbiology 05/26/17 18:26 Blood Blood Culture - Preliminary No Growth after 96 hours 05/19/17 19:46 Blood Blood Culture - Final No Growth after 144 hours 05/19/17 18:30 Blood Blood Culture - Final No Growth after 144 hours 05/19/17 17:05 Urine,Catheterized Urine Culture - Final 05/04/17 23:29 Blood Blood Culture - Final No Growth after 144 hours 05/03/17 17:57 Blood Blood Culture - Final No Growth after 144 hours 05/03/17 03:00 Urine,Catheterized Urine Culture - Final Escherichia coli Assessment and Plan (1) Gram-negative sepsis with organ dysfunction Narrative/Plan: 82-year-old male transferred from extended care facility for alteration of his status. We'll request performed there was evidence of leukocytosis, acute renal failure, hyperkalemia. With this he was transferred to Hospital and is now received intervention and has been seen by nephrology. Because of his illness computed tomography scan of the abdomen and pelvis was performed showing evidence of the significant cecal dilatation and concerns to infection and abscess at that site. The patient has been seen by surgery and will plan colonoscopy when he is medically cleared. At the time of the consult fluid bolus was given since his computed tomography scan did not show evidence of heart failure. Antipyretics were given. The patient defervesced and his significant tachycardia and hypotension resolved. The patient has remained on selective care. His CODE STATUS is full, and apparently this has been addressed with the family and they do not yet understand the current ramifications of his illness. Ongoing discussion shall be held for more appropriate CODE STATUS. He has had a significant leukocytosis whichpersistant. There is evidence of urine culture with E. coli. His fever has resolved. Antibiotic therapy with Zosyn was initiated with concerns to the abdominal sepsis. We will also give coverage for his urinary tract infection based on prior cultures. He does have some crustiness to his eyes and Polysporin was given with improvement. His legs are wrapped continue the ulcer on the dorsum of the right foot. Local wound care as changed to medical Honey to try to debrided this better. Continue to wrap the legs. The dressing changes can be performed every other day. Assessment followed by surgery. Will need outpatient endoscopic evaluation if possible. There is been a significant leukocytosis minimal improvement. The patient had had adequate treatment for his urinary infection but was still receiving some antibiotic therapy for the abdominal infection. The conversion to oral therapy was noteffective His leukocytosis has improved with current interventions. Concern that leukocytosis is dropping due to worsening sepsis and the patient continues to decline. There is concerns to an aspiration event in the ertapenem should give us coverage also. DO NOT RESUSCITATE status has now been accomplished. Plan to complete antibiotics in a week, but still has leukocytosis. It is related the family has declined hospice. Would suggest a follow-up computed tomography scan ensure there some improvement of the abscess. Status: Acute (2) Acute renal failure Status: Acute (3) Hyperkalemia Status: Acute (4) UTI (urinary tract infection) Status: Acute
--- NOTE | 2017-05-31 19:28 | P.PN ---
Subjective Franco Hill is a 82-year-old right-handed white male who was initially admitted to [facility] on 05/02/2017 for evaluation of sepsis and weakness. Patient was seen in neurology consultation initially back on . He was found to have evidence at that time of diffuse metabolic encephalopathy and acute renal failure. He was also being treated for gram- negative sepsis with organ dysfunction. He is being treated for ESBL E. coli sepsis with multiple medical problems. He has been seen by infectious disease and is followed by Dr. Kenney. The patient apparently was started on symptom feedings early this afternoon and had significant residuals averaging 65 200 mL. The patient also spiked a temperature this afternoon to 101 degrees Fahrenheit. He developed symptoms of hypotension which persisted. Patient was transferred to the intensive care unit where he is now being seen in neurology follow-up. The patient is resting comfortably. He does not appear to be in acute pain. He is able to follow some simple commands. His temperature is now back to normal and is noted to be orally at 97.9. The patient was started on 5 mics of Levophed due to the severe hypotension. His CODE STATUS as per family remains full CODE STATUS at this time. Due to the change in his level of function we have recommended a stat computed tomography scan of the brain to be done this evening to rule out any acute intracranial lesion or other abnormalities. We will also plan to get a follow-up EEG for the patient tomorrow morning. Case was discussed today at length with Dr. Kenney from infectious disease who agrees with our current treatment plan. The patient developed severe anemia today and did require 2 units of packed red cells for treatment. His hemoglobin had dropped to 7.3. Apparently later this evening he developed maroon-colored stools and did require 2 more units of packed red cells. Patient also this evening has developed a low-grade temperature of 100.8. We will await further recommendations from infectious disease. According to the ICU nurse the family has now made the patient DO NOT RESUSCITATE CODE STATUS. His was at bedside and she was updated on his overall poor prognosis and his current neurological condition. She is aware of his very guarded condition at this time. Apparently he has been opening his eyes but has very little verbal output when family is at bedside. He has shown some improvement this evening in terms of his overall mental status. He is opening his eyes and does say a few words. According to the ICU nursing staff he was more alert this morning. Towards the end of the day he becomes more lethargic. He does easily arouses evening in the ICU. He is following only simple commands. He has remained relatively stable today in terms of his hemodynamics. He continues to remain slightly tachycardic and his current hemoglobin is 8.0. His hemoglobin continues to drop slowly. As noted surgery is aware of his condition. He has had some dark tarry stools today as well. Surgical services are on his case. So far his blood cultures have remained negative. His white count remains elevated at 23.5 today. Patient is noted to be using breathing treatment this evening and apparently has been less responsive late this evening. Patient is afebrile today. He had a fever yesterday evening. Infectious disease is following the patient. Patient does follow some simple commands today. He is less obtunded as compared to yesterday. He still has generalized weakness. Patient was transferred out of the ICU a few days ago. [facility] seems to be doing fairly well. He is more responsive. Still has very hard time articulating his speech. He is currently undergoing a breathing treatment. According to the respiratory therapist he has 3 treatments daily. We will continue to follow his progress closely with infectious disease. Patient remains anemic. His hemoglobin today is 8.9. Due to this patient's poor prognosis it has been suggested the patient be evaluated for hospice care. The patient is currently being worked up for discharge planning to extended care facility versus hospice care. His CODE STATUS is now DO NOT RESUSCITATE. He is being considered for possible transfer to [facility] when he is medically stable. His prognosis is extremely guarded at this time. We will continue close monitoring of his overall neurological status. He still remains encephalopathic with mild stupor. He is being treated for urinary tract infection but is also receiving antibiotic therapy for abdominal infection. Infectious diseases monitoring his condition closely. Infectious disease is planning another week of antibiotic coverage with possible follow-up computed tomography scan of the abdomen. His overall prognosis at this time remains very guarded. Objective - Vital Signs Vital signs: Vital Signs Temp 100.0 F H 05/31/17 07:50 Pulse 118 H 05/31/17 07:50 Resp 30 H 05/31/17 07:50 BP 140/68 05/31/17 07:50 Pulse Ox 96 05/31/17 07:50 Intake & Output 05/30/17 05/31/17 05/31/17 18:59 06:59 18:59 Intake Total 260 1783 Output Total 700 1100 Balance -440 683 Weight 76.5 kg 77.5 kg Intake: Intake, IV Titration 1523 Amount Sodium Chloride 0.45% 1, 1523 000 ml @ 75 mls/hr IV . [id number] [facility] Rx#:[id number] Oral 0 0 Tube Feeding 260 260 Output: Urine 700 1100 Uretheral ([place]) 200 600 Other: Voiding Method Indwelling Catheter # Voids 0 0 - Exam Physical examination: PHYSICAL EXAMINATION: Patient is resting comfortably in bed. Patient is somewhat lethargic but easily arousable. He does follow simple commands. His is at bedside. VITAL SIGNS: Blood pressure is [140/68]. Heart rate is [107]. Respiration is [ 30 to]. Temperature is [98.2]. HEENT: Head is atraumatic, neck is supple, there were no carotid bruits. CHEST: Lungs are clear to auscultation and percussion. CARDIAC: S1, S2 normal rate and rhythm. There is no murmur. ABDOMEN: Soft and nontender. Bowel sounds are present. EXTREMITIES: There is no pedal edema. Peripheral pulses are present. Neurological examination: Patient was transferred out of the intensive care unit yesterday. He is resting comfortably. He is alert and oriented 2. He is able to follow simple commands. He has generalized weakness. Deep tendon reflexes are 1+ and symmetric. Plantar responses flexor bilaterally. Coordination and gait cannot be assessed in this patient at this time. The patient is noted to have a breathing mask in place but does open his eyes to stimulation. He does follow some simple commands. - Labs CBC & Chem 7: 05/31/17 07:42 05/31/17 07:49 Labs: Abnormal Lab Results - Last 24 Hours (Table) 05/30/17 05/30/17 05/31/17 Range/Units 07:33 10:56 07:42 WBC 16.2 H 17.5 H (3.8-10.6) k/uL RBC 2.64 L 2.67 L (4.30-5.90) m/uL Hgb 8.1 L 7.9 L (13.0-17.5) gm/dL Hct 25.8 L 26.6 L (39.0-53.0) % MCHC 29.7 L (31.0-37.0) g/dL RDW 16.7 H 16.9 H (11.5-15.5) % Plt Count 501 H 541 H (150-450) k/uL Neutrophils # 12.8 H 14.2 H (1.3-7.7) k/uL Eosinophils # 0.9 H (0-0.7) k/uL Chloride 115 H (98-107) mmol/L Carbon Dioxide 18 L (22-30) mmol/L BUN 34 H (9-20) mg/dL Calcium 7.3 L (8.4-10.2) mg/dL Total Protein 4.5 L (6.3-8.2) g/dL Albumin 1.8 L (3.5-5.0) g/dL 05/31/17 Range/Units 07:49 WBC (3.8-10.6) k/uL RBC (4.30-5.90) m/uL Hgb (13.0-17.5) gm/dL Hct (39.0-53.0) % MCHC (31.0-37.0) g/dL RDW (11.5-15.5) % Plt Count (150-450) k/uL Neutrophils # (1.3-7.7) k/uL Eosinophils # (0-0.7) k/uL Chloride 113 H (98-107) mmol/L Carbon Dioxide 19 L (22-30) mmol/L BUN 31 H (9-20) mg/dL Calcium 7.5 L (8.4-10.2) mg/dL Total Protein 4.5 L (6.3-8.2) g/dL Albumin 1.8 L (3.5-5.0) g/dL Microbiology - Last 24 Hours (Table) 05/26/17 18:26 Blood Culture - Preliminary Blood No Growth after 96 hours Assessment and Plan (1) Acute metabolic encephalopathy Status: Acute Code(s): G93.41 - METABOLIC ENCEPHALOPATHY (2) Gram-negative sepsis with organ dysfunction Status: Acute Code(s): A41.50 - GRAM-NEGATIVE SEPSIS, UNSPECIFIED; R65.20 - SEVERE SEPSIS WITHOUT SEPTIC SHOCK (3) Acute renal failure Status: Acute Code(s): N17.9 - ACUTE KIDNEY FAILURE, UNSPECIFIED (4) Febrile illness Status: Acute Code(s): R50.9 - FEVER, UNSPECIFIED Plan: This patient is a 82-year-old male who was initially admitted to Hospital with symptoms of increasing weakness and sepsis. Today he was on the medical floor and developed residual retention of his tube feedings. He then spiked a temperature of 101F. He then showed signs of severe hypotension. He was transferred to the intensive care unit this evening where he is now been examined. Patient was started on 5 mics of Levophed due to the hypotension. We have arranged for a stat computed tomography scan of the brain to be done this evening for further evaluation. The patient is afebrile at this time. He is being followed closely by infectious disease and Dr. Kenney for gram- negative sepsis. He is on antibiotic coverage. The patient continues to have low-grade temperature today of 100.8. He is also received 4 units of packed red cells due to severe anemia. The family has now decided to make the patient DO NOT RESUSCITATE CODE STATUS due to his complex medical history. The patient remains somewhat encephalopathic at this time. was updated on his overall neurological status and current condition. She is aware of his guarded condition. We will continue close neurological follow-up of this patient in the intensive care unit. His mental status has shown some improvement today. He is slightly more awake and able to answer some questions today. His neurological findings are consistent with a diffuse metabolic encephalopathy. As noted his CODE STATUS remains no code as per the family wishes. His overall prognosis at this time remains very guarded. Case was discussed yesterday at length with the patient's and son at bedside. All of their questions were answered. They are both aware of his guarded condition. The patient remains somewhat obtunded this evening. He does follow some simple commands. We are waiting further recommendations from infectious disease in regards to his sepsis. He does have underlying urinary tract infection with positive cultures for gram-negative bacilli in the E. coli. He is being followed closely by infectious disease. He is currently receiving antibiotics which include Polysporin and ertapenem. He remains afebrile this evening. The patient did undergo a follow-up EEG today for further evaluation of his overall cognitive function. His EEG remains very slow and consistent with moderate to severe encephalopathy. There is very little change compared to a previous EEG that was done on 05/20/2017. Patient is afebrile this morning. He was transferred out of the intensive care unit yesterday. He is resting comfortably in bed. He seems to be slightly more alert but still having a hard time articulating his speech. He is only able to say only a few words. His overall prognosis at this time remains very guarded. The patient continues to remain anemic with a hemoglobin of 8.9 today. The patient's CODE STATUS is DO NOT RESUSCITATE. Patient is being considered for possible ECF placement once he is medically stable. Due to his poor prognosis it has been suggested that the patient also be considered for possible hospice care. Apparently the family has declined hospice care for this patient. We will await further recommendations from Dr. Anderson. His overall prognosis at this time remains guarded. We will continue close neurological follow-up of this patient during this admission.
[2017-05-31] MEDS: LORazepam 2 MG/ML SYRINGE IV PRN (23:17)
[2017-06-01] MEDS: SODIUM CHLORIDE 0.45% 1,000 ML IV SCH ×6 (05:21→19:14)
[2017-06-01] MEDS: TETRAHYDROZOLINE 0.05% OPHTH DROPS 15 ML BTL BOTH EYES PRN (07:43)
[2017-06-01] MEDS: LORATADINE 10 MG TAB PO SCH (07:44)
[2017-06-01] MEDS: PANTOPRAZOLE 40 MG/10 ML VIAL IVP SCH (07:44)
[2017-06-01] MEDS: METOPROLOL TARTRATE 50 MG TAB PO SCH ×3 (07:44→22:27)
[2017-06-01] MEDS: SUCRALFATE 1 GM TAB PO SCH ×4 (08:05→22:27)
[2017-06-01] MEDS: AMMONIUM LACTATE 12% LOTION 225 GM BTL TOPICAL SCH ×2 (08:06→22:31)
[2017-06-01] MEDS: ENOXAPARIN 40 MG/0.4 ML SYRINGE SQ SCH (08:07)
[2017-06-01] MEDS: BUDESONIDE 0.5 MG/2 ML NEBU INHALATION SCH ×2 (08:59→20:57)
[2017-06-01] MEDS: IPRATROPIUM-ALBUTEROL 3 ML NEB INHALATION SCH ×3 (08:59→20:57)
--- NOTE | 2017-06-01 10:52 | CT ---
EXAMINATION TYPE: CT abdomen pelvis wo con DATE OF EXAM: 06/01/2017 COMPARISON: Previous CT scan of the chest, abdomen and pelvis dated 05/04/2017. HISTORY: Elevated WBC CT DLP: 1644.5 mGycm Automated exposure control for dose reduction was used. FINDINGS: There is consolidation of both lung bases, greater on the left than the right. The heart is mildly enlarged. There is no pleural or pericardial fluid. There is coronary artery and other vascul ar calcifications. The aortic root is mildly prominent measuring 3.8 cm. The remainder of the aorta i s normal in caliber. Within the abdomen, the liver is normal in size. There is evidence of cholelithiasis. The spleen is u nremarkable. There is a 1.9 cm low attenuating right adrenal mass. The left adrenal gland is normal. There is no evidence of hydronephrosis or nephrolithiasis. There is a 2.1 cm low attenuating lesion i n the mid to lower pole of the left kidney. This likely represents a cyst. The right kidney is unrema rkable. Limited views of the pancreas are unremarkable. There is no significant retroperitoneal, iliac or inguinal adenopathy. 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 There appears to be a rectal tube in place. The bladder is poorly imaged. There is no evidence of large or small bowel obstruction. There is generalized anasarca throughout the lower chest, abdomen and pelvis. No free fluid and no free air is seen. There is degenerative disc disease and hypertrophic spondylosis throughout the spine. IMPRESSION: 1. BILATERAL AIRSPACE DISEASE, GREATER ON THE LEFT THAN THE RIGHT. 2. CHOLELITHIASIS. 3. CARDIOMEGALY. 4. CORONARY ARTERY CALCIFICATION WELL OTHER VASCULAR CALCIFICATIONS. 5. MILD DILATATION OF THE ROOT OF THE AORTA. 6. GENERALIZED ANASARCA. 7. PROBABLE LEFT RENAL CYSTIC DISEASE. THIS COULD BE CONFIRMED WITH ULTRASOUND. 8. SMALL RIGHT ADRENAL MASS. 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 9. DEGENERATIVE CHANGES WITHIN THE SPINE.
--- NOTE | 2017-06-01 13:13 | P.PN ---
Subjective 05/08/17- This is an 82-year-old male patient who came into the emergency department on 05/02/2017 from an extended care facility. Patient was noted to have a potassium of 6.4 at the extended care facility and therefore they sent him over. The patient did not have any further complaints and he has intermittent confusion which is his baseline. EKG performed in the emergency room did show sinus rhythm with occasional PVCs, patient had no ST segment elevation or depression or T-wave abnormalities. The patient was put on lactulose. Hypertension is also being worked up for possible rectal mass and will undergo colonoscopy when stable with Dr. Piña. All labs and reports have been reviewed. Patient is being seen and examined today on the sixth floor for pulmonary services related to progression of shortness of breath over the last few days. He has had a cough however denies any congestion. Nursing staff has denied any sputum production. He is alert and oriented 1 with intermittent confusion. Has been afebrile. Currently is on 3 L of supplemental oxygen via nasal cannula. It is unclear if the patient utilized oxygen in the extended care facility setting. Patient is also on a mechanical soft diet with aspiration precautions. 05/09/17- this patient is being evaluated and examined and seen on rounds today. All labs and reports were reviewed. The patient hyperkalemia has improved. The white blood cell count has come down to 12.8. Patient was noted to have increased lethargy and decreased cognition yesterday afternoon therefore a neurology consult was initiated. Patient is going for a CT of the brain as well as an EEG today. Patient's speech is noted to be slightly slurred and mumbled. Overnight he was noted to refuse care, had increase in agitation, and was refusing food and fluids. and primary care were updated. 05/10/17- this patient is being evaluated exam and seen today on the selective care unit. All labs and reports have been reviewed. Patient appears more awake today than previously. Patient did undergo a CT of the brain and EEG yesterday. Neurology and nephrology is on consult. Patient's prognosis is guarded and he has multiple comorbidities. Upon examination the patient's resting up in bed on room air states he occasionally has shortness of breath with exertion. He denies any cough or congestion at this time. Discharge planning is in process and appears the patient will go back to extended care facility when discharged. 05/11/17- patient is being seen in evaluated and examined today on the fifth floor. Patient is known to be slightly tired however is easily awoken. Currently he is resting up in bed on room air. Patient noticed to have a faint light red flat erythema rash to his right lateral chest. He denies any itching or pain. The area is small and diffuse. We will continue to monitor this. He does have Lotrisone cream for the area. On examination he denies any shortness of breath cough or congestion. Family at bedside updated on plan of care. 05/12/17- patient is being seen examined and evaluated today on the floor. The patient continues to be tired however is easily aroused upon examination. No further progression is noted of his rash to the right lateral chest. On examination patient's resting up in bed on room air. Shortness of breath as noted with exertion. Intermittent cough. He is afebrile, no overnight events. 05/13/17- patient is being seen examined and evaluated today on the floor. On examination the patient is resting in bed on room air, continues with shortness of breath on exertion. According to the nursing staff during breakfast the patient was coughing and choking and has dysphagia diet. Continue swallow evaluation with speech therapy has been ordered. 05/14/17-05/19/[address] Valverde's dictations 05/20/17- patient is being seen examined and evaluated today in the intensive care unit. Currently the patient is resting up in bed on 2 L of supplemental oxygen via nasal cannula. Patient continues to be tachycardic and oxygen dependent. Patient did undergo a procedure for PEG tube and is currently tolerating tube feeds. Chest x-ray has been reviewed from this morning and does show a correlation for CHF, underlying pneumonia not excluded. Upon examination the patient's vasopressors are on hold. We are trying to wean the patient off of pressors at this time. 05/21/17- patient is being seen examined and evaluated today in the intensive care unit. Patient has been noted to have significant tachycardia with episodes of hypotension, he was noted to have increased bowel movements that were loose and dark. Occult blood was sent to lab and came back positive. The patient had FMF in place. Surgical has been updated. Hemoglobin noted to drop from 8.6 this morning now down to 7.3. Orders given for 2 units of packed red blood cells as well as consult interventional radiology for PICC line insertion. chest x-ray from this afternoon revealed improved variation in both lung bases. 05/22/17- patient seen and examined in the ICU remains hypertensive but intermittent continue to have episodes of tachycardia the beta blockers are being used cautiously currently patient heart rate is about 150-160 and appears to be sinus tachycardia Cardizem drip is not working so is being discontinued patient is on IV Lopressor has been on by mouth Lopressor as well he has been transfused with packed RBC indexes of bleeding that has been seen overnight has appears to settle down patient slightly more awake now family is present at bedside care plan discussed with them the advice to proceed with a DO NOT RESUSCITATE CODE STATUS, patient is status post PICC line placement 05/23/17- patient is being seen examined and evaluated today in the intensive care unit. Patient has received a total of 4 units of packed red blood cells. Hemoglobin is noted to drop from 11.8 to 9.4 today. Surgery is also on consult , however he has a high risk candidate. His fecal management system is in place and the stools look less maroon today than previous. He continues to have intermittent confusion. His sodium was noted to be 155 today, as well as a chloride of 129. We have increased his free water flushes via PEG tube to 250 ML's every 6. Upon examination the patient's resting up in bed on 3 L of supplemental oxygen via nasal cannula. He continues to have a dry cough. Currently he is afebrile, no further complaints. 05/24/17-05/27/17- See Dr. Austin note, as he was on for coverage 05/28/17- see Dr. Valverde's progress note 05/29/17- patient is seen examined and evaluated today on the selective care unit. Patient continues to be nonverbal and noncommunicative with intermittent anxiety and confusion. Patient has failed to show any significant improvement, he remains very debilitated, no evidence of any active bleeding is present. Patient has been downgraded to the medical surgical unit. Due to the patient's poor prognosis it has been suggested the patient should be evaluated for hospice , will defer to primary service in that regard. Agent has been receiving nutrition via PEG tube and has been tolerating that well. He continues to have Granados catheter as well as fecal management system. No further bleeding has been noted. 05/30/17- patient is seen examined and evaluated today on rounds. Patient has not shown any signs of improvement, in fact he continues to slowly decline. His prognosis is highly guarded in becoming poor. Hospice was brought up as an option to the however she declined wanting any such services at this time. She wants to continue with treatment. Patient's would like him to go to an extended care facility for further treatment. Patient is a DO NOT RESUSCITATE at this time. Patient continues on 3 L of supplemental oxygen via nasal cannula. He continues to be short of breath with any exertion or activity. Does have a chronic cough. Cough is ineffective in bringing up any secretions. Patient does have PEG tube and is receiving nutrition without any significant residual volumes. Labs and reports for reviewed. 05/31/17- she has seen examined and evaluated today on rounds. Patient currently resting in bed on 3 L of supplemental oxygen via nasal cannula. His shortness of breath continues and is unchanged. The chronic cough as well as ineffective cough also unchanged. Patient is receiving nutritional support via PEG tube without any significant residual volumes. Discharge planning is in place to possibly ECF in the near future. He is afebrile, no overnight events. All labs and reports been reviewed. 06/01/17- patient is being seen, examined and evaluated today on rounds. Patient appartently pulled IVs out last night and nurses are unable to gain access at this time. Patient may need to go for a PICC line insertion if the current medications are unable to be switched over to oral agents that could go through the PEG tube. ID currently manageing antibiotics, will defer to them if the patient will require a new PICC insertion or not. The patient remains confused and short of breath with exertions. Utilizing 3L of supplemental oxygen. He is tolerating tube feedings. afebrile. All labs and reports reviewed. Objective - Vital Signs Vital signs: Vital Signs Temp 99.0 F 06/01/17 07:00 Pulse 113 H 06/01/17 08:00 Resp 18 06/01/17 08:00 BP 133/55 06/01/17 07:00 Pulse Ox 97 06/01/17 07:00 Intake & Output 05/31/17 06/01/17 06/01/17 18:59 06:59 18:59 Intake Total 220 270 90 Output Total 850 850 250 Balance -989 -580 -160 Weight 77.5 kg 77.5 kg Intake: Tube Feeding 220 270 90 Output: Urine 850 600 Uretheral (Granados) 850 350 Stool 250 250 Other: Voiding Method Indwelling Catheter Indwelling Catheter Indwelling Catheter # Voids 0 - Exam GENERAL EXAM: Alert, confusion noted which is baseline, comfortable in no apparent distress. HEAD: Normocephalic. EYES: Normal reaction of pupils, equal size. NOSE: Clear with pink turbinates. THROAT: No erythema or exudates. NECK: No masses, no JVD. CHEST: No chest wall deformity. LUNGS: Equal air entry with no crackles, wheeze, rhonchi or dullness. Breath sounds decreased bilaterally. CVS: S1 and S2 normal with no audible mumurs, regular rhythm. ABDOMEN: No hepatosplenomegaly, normal bowel sounds, no guarding or rigidity. PEG tube in place clean dry and intact, FMS in place EXTREMITIES: +2 edema noted, pedal pulses palpable. Chronic skin changes noted , bilateral legs wrapped SKIN: Multiple skin tears, flat erythema diffuse rash to right lateral chest, cream applied CENTRAL NERVOUS SYSTEM: No focal deficits, moves all 4 extremities. - Labs CBC & Chem 7: 05/31/17 07:42 05/31/17 07:49 Labs: Abnormal Lab Results - Last 24 Hours (Table) 05/31/17 Range/Units 17:17 VBG HCO3 22 L (24-28) mmol/L Microbiology - Last 24 Hours (Table) 05/26/17 18:26 Blood Culture - Preliminary Blood No Growth after 120 hours Assessment and Plan Plan: Assessment Supraventricular tachycardia likely related to the intravascular water depletion dehydration and acute blood loss anemia with ongoing intermittent GI loss Recurrent intermittent aspiration with episodes of silent aspiration patient is status post PEG tube placement Urinary tract infection, culture positive for gram negatives bacilli and E. coli , which appears to be ESBL, IVS adjust antibiotics Sepsis with fever, gram-negative Acute hypoxic respiratory failure Hyperkalemia, improved Acute renal failure Urinary tract infection, culture positive for gram negatives bacilli and E. coli Hypernatremia likely related to decreased oral intake Probable rectal mass, currently being worked up Diarrhea History of CVA Hypotension Plan Patient is being worked up to potentially go to extended care facility in the near future. Defer to ID or primary to see if patient will require a PICC line insertion for antibiotics. All labs and reports have been reviewed Medications have been reviewed and will be continued as ordered. Patient's prognosis is guarded. Patient did have an interventional radiology consult to have PICC line inserted. Patient known to be resistive to care and medical treatment. Continue to monitor electrolytes. Patient will undergo colonoscopy once cleared , in the outpatient setting. Continue with pulmonary hygiene, coughing and deep breathing exercises, and supportive care. Supplemental oxygen to maintain oxygen saturations of 92% or better. Continue nebulizer treatments in the form of DuoNeb and budesonide. . GI and DVT prophylaxis. Appreciate consults recommendations. Patient is currently being worked up for discharge planning to extended care facility. We will continue to monitor labs/results and adjust treatment as necessary. Further recommendations pending. I performed an examination of the patient and discussed their management with the nurse practitioner. I have reviewed the nurse practitioner's note and agree with the documented findings and plan of care.
[2017-06-01] MEDS ORDERED: FUROSEMIDE 10 MG/ML 4 ML VIAL IV STA (14:38)
[2017-06-01] MEDS: BACITRACIN/POLYMYX 500-10,000 UNIT/GM OPHTH OINT 3.5 GM TUBE BOTH EYES SCH ×3 (15:50→22:31)
--- NOTE | 2017-06-01 17:33 | PN ---
PROGRESS NOTE DATE OF SERVICE: 06/01/2017 I am covering for Dr. Anderson. This 82-year-old gentleman who was admitted with UTI, had multiple other complications also. The patient is stuporous at this time. The PEG tube was inserted. The patient also has tachycardia. The patient ESBL E. coli. Patient is on Invanz. IV access is limited at this time. PICC line is being planned. Dr. Kenney and multiple consultants including Dr. Valverde is following the patient closely. PAST MEDICAL HISTORY: Reviewed. REVIEW OF SYSTEMS: Could not be taken, the patient is stuporous. CURRENT MEDICATIONS: Current medications are reviewed and include: 1. Tylenol 650 q.4 p.r.n. 2. [place] elixir 7.5 mg q.i.d. p.r.n. 3. Albuterol Atrovent updraft. 4. Bacitracin q.i.d. 5. Pulmicort 0.5 b.i.d. 6. Valium 2.5 mg q.8. 7. Lovenox 40 mg subcutaneously daily. 8. Ertapenem 1 gram IV daily. 9. Lac-Hytrin. 10.Claritin 10 mg p.o. 11.Ativan 0.5 mg q.6 p.r.n. 12.Milk of magnesia. 13.Lopressor 50 mg p.o. t.i.d. 14.Lopressor 5 mg IV b.i.d. 15.P.r.n. medications. 16.Carafate. PHYSICAL EXAM: Patient is stuporous. Pulse 80. Blood pressure is 136/78, respirations 30, temperature 99 degrees, pulse ox 98% on 2 L. HEENT: Conjunctivae normal. Oral mucosa moist. Neck is no jugular venous distention. No carotid bruit. No lymph node enlargement. CARDIOVASCULAR: S1, S2 muffled. No S3, no S4. RESPIRATORY: Breath sounds diminished at the bases. Bilateral scattered rhonchi and crackles. Expiratory wheezing also present. ABDOMEN: Soft. PEG tube in situ. LEGS: No edema. No swelling. NERVOUS SYSTEM: Diffusely weak. LABS: WBC 17.5, hemoglobin 7.9. ASSESSMENT: 1. Acute urinary tract infection with sepsis with ESBL Escherichia coli, present on admission. 2. Acute renal failure. 3. Change in mental status, acute metabolic encephalopathy. 4. Gram-negative sepsis. 5. Status post PEG tube. 6. Sinus tachycardia. 7. History of cerebrovascular accident , transient ischemic attack. 8. Hyponatremia. 9. Status post PEG tube placement. 10.Anemia, possibly acute blood-loss anemia from gastrointestinal bleed, stable. 11.Increased WBC. 12.Hypoalbuminemia with severe protein-calorie malnutrition. 13.NO CODE, NO CPR, NO VENT. RECOMMENDATIONS AND DISCUSSION: Recommend to continue current medications. Continue with monitoring and symptomatic treatment. Otherwise at this time continue with antibiotics, recommend PICC line or central line placement. Dr. Valverde and Dr. Kenney will follow. I also had a detailed discussion with the family at length and their questions were answered. Once again, the prognosis is guarded. Currently patient is NO CODE. Further recommendations to follow. We will let Dr. Anderson know. SABRINA / PETER: [phone] /
[2017-06-01] MEDS: ERTAPENEM 1 GM in SODIUM CHLORIDE 0.9% 50 ML IVPB SCH (18:15)
[2017-06-01] MEDS: ACETAMINOPHEN TAB 325 MG TAB PO PRN (18:16)
--- NOTE | 2017-06-01 19:44 | P.PN ---
Subjective Principal diagnosis: sepsis 82-year-old male resident of [facility] was found evidence of multiple abnormal labs included acute renal failure and hyperkalemia. The patient was transferred from the [facility] care [facility] for further intervention. Infectious diseases consultation was requested when the patient developed a high-grade fever reportedly over 104. the consult was initiated as the patient became febrile, hypotensive and tachycardic. The patient is a poor historian. The patient today is a bit more comfortable than reported last evening. He relates that he has minimal hunger. His mouth is dry. As related lactic acid was drawn which was elevated and had evidence of leukocytosis, the patient was given fluids and antibiotic therapy with Zosyn given the concerns to urinary system as well as potential abdominal source since he was having some diarrhea. As the patient is slightly more comfortable. Has been seen by surgery and is being monitored for a potential colonoscopy in the future. Regarding ongoing treatment for the colonic abscess. No complaints except for fatigue.. As noted there is been the difficulty with his nutrition. Concerns of an aspiration event. PEG tube is been placed and is being utilized at this time under the supervision of surgery. Patient does answer occasionally to direct questioning The patient's daughter and significant other are present. There relates been a tough day. Discussion occurred with the primary team again talking about hospice which is certainly a viable option at this time. The patient's daughter relates that the mother is just not ready for this Conversation. I do point out to the daughter it has been brought up since his time in the ICU. It appears the patient is improved this afternoon. His IV is in place. He received his antibiotic therapy in the family is much more content. Objective - Vital Signs Vital signs: Vital Signs Temp 99.8 F H 06/01/17 18:59 Pulse 128 H 06/01/17 19:00 Resp 24 06/01/17 19:00 BP 138/66 06/01/17 18:59 Pulse Ox 99 06/01/17 18:59 Intake & Output 06/01/17 06/01/17 06/02/17 06:59 18:59 06:59 Intake Total 270 435 Output Total 850 2250 600 Balance -580 -1815 -600 Weight 77.5 kg 77.5 kg Intake: Intake, IV Titration 150 Amount Ertapenem 1 gm In Sodium 50 Chloride 0.9% 50 ml @ 100 mls/hr IVPB DAILY [facility] Rx #:[id number] Sodium Chloride 0.45% 1, 100 000 ml @ 50 mls/hr IV . Q20H [facility] Rx#:[id number] Tube Feeding 270 285 Output: Urine 600 1150 Uretheral ([place]) 350 950 Stool 250 1100 600 Other: Voiding Method Indwelling Catheter Indwelling Catheter Indwelling Catheter # Voids 0 0 - Exam 82-year-old male poor historian HEENT: Anicteric conjunctiva are pink and mildly crusty nasal mucosa grossly intact without significant lesions, there is no thrush but the oral cavity is very dry Neck: The neck is supple with no nuchal rigidity, without significant lymphadenopathy or thyromegaly. Lungs: There is symmetrical air entry. Scattered wheezes and basilar crackles are noted. Heart: Irregular with soft S4 no distinct murmur click or rub Abdomen: Positive bowel sounds soft and nontender without palpable masses or organomegaly. There was no guarding or rebound. PEG tube site is intact without erythema or drainage Extremities: The extremities have some minimal trace edema in the upper extremities have multiple weeping areas. The lower extremities have evidence of the extensive skin lesion the bilateral lower extremities. There is a healing left hip incision which is without erythema crepitance or fluctuance. There is some erythema to the buttocks area. Neuro: Arousable, speech content is poor and inconsistent- occasionally is direct and understandable. He does have some hand motion which is wholly pull out his IV. He is having some worsening contractures to his lower extremities no. - Labs CBC & Chem 7: 05/31/17 07:42 05/31/17 07:49 Labs: Microbiology - Last 24 Hours (Table) 05/26/17 18:26 Blood Culture - Preliminary Blood No Growth after 120 hours Laboratory Results WBC 17.5 k/uL (3.8-10.6) H 05/31/17 07:42 RBC 2.67 m/uL (4.30-5.90) L 05/31/17 07:42 Hgb 7.9 gm/dL (13.0-17.5) L 05/31/17 07:42 Hct 26.6 % (39.0-53.0) L 05/31/17 07:42 MCV 99.7 fL (80.0-100.0) 05/31/17 07:42 MCH 29.7 pg (25.0-35.0) 05/31/17 07:42 MCHC 29.7 g/dL (31.0-37.0) L 05/31/17 07:42 RDW 16.9 % (11.5-15.5) H 05/31/17 07:42 Plt Count 541 k/uL (150-450) H 05/31/17 07:42 Neutrophils % 81 % 05/31/17 07:42 Neutrophils % (Manual) 88 % 05/24/17 04:50 Lymphocytes % 8 % 05/31/17 07:42 Lymphocytes % (Manual) 6 % 05/24/17 04:50 Monocytes % 5 % 05/31/17 07:42 Monocytes % (Manual) 4 % 05/24/17 04:50 Eosinophils % 4 % 05/31/17 07:42 Eosinophils % (Manual) 2 % 05/24/17 04:50 Basophils % 0 % 05/31/17 07:42 Neutrophils # 14.2 k/uL (1.3-7.7) H 05/31/17 07:42 Neutrophils # (Manual) 20.68 k/uL (1.3-7.7) H 05/24/17 04:50 Lymphocytes # 1.4 k/uL (1.0-4.8) 05/31/17 07:42 Lymphocytes # (Manual) 1.41 k/uL (1.0-4.8) 05/24/17 04:50 Monocytes # 0.9 k/uL (0-1.0) 05/31/17 07:42 Monocytes # (Manual) 0.94 k/uL (0-1.0) 05/24/17 04:50 Eosinophils # 0.7 k/uL (0-0.7) 05/31/17 07:42 Eosinophils # (Manual) 0.47 k/uL (0-0.7) 05/24/17 04:50 Basophils # 0.1 k/uL (0-0.2) 05/31/17 07:42 Nucleated RBCs 1 /100 WBC (0-0) H 05/24/17 04:50 Manual Slide Review Performed 05/24/17 04:50 Polychromasia Present 05/24/17 04:50 Hypochromasia Moderate 05/31/17 07:42 Poikilocytosis Slight 05/29/17 05:24 Anisocytosis Slight 05/31/17 07:42 Macrocytosis Slight 05/31/17 07:42 PT 11.9 sec (9.0-12.0) 05/19/17 15:46 INR 1.2 (<1.2) H 05/19/17 15:46 APTT 27.9 sec (22.0-30.0) 05/19/17 15:46 VBG pH 7.33 (7.31-7.41) 05/31/17 17:17 VBG pCO2 44 mmHg (37-51) 05/31/17 17:17 VBG HCO3 22 mmol/L (24-28) L 05/31/17 17:17 Sodium 138 mmol/L (137-145) 05/31/17 07:49 Potassium 4.5 mmol/L (3.5-5.1) 05/31/17 07:49 Chloride 113 mmol/L (98-107) H 05/31/17 07:49 Carbon Dioxide 19 mmol/L (22-30) L 05/31/17 07:49 Anion Gap 6 mmol/L 05/31/17 07:49 BUN 31 mg/dL (9-20) H 05/31/17 07:49 Creatinine 0.86 mg/dL (0.66-1.25) 05/31/17 07:49 Est GFR (MDRD) Af Amer >60 (>60 ml/min/1.73 sqM) 05/31/17 07:49 Est GFR (MDRD) Non-Af >60 (>60 ml/min/1.73 sqM) 05/31/17 07:49 Glucose 99 mg/dL (74-99) 05/31/17 07:49 POC Glucose (mg/dL) 130 mg/dL (75-99) H 05/25/17 08:03 POC Glu Instructional Technology Facilitator ID García PulidoClara 05/25/17 08:03 Lactic Ac Sepsis Rflx Y 05/19/17 16:27 Plasma Lactic Acid Froy 1.7 mmol/L (0.7-2.0) 05/19/17 19:46 Calcium 7.5 mg/dL (8.4-10.2) L 05/31/17 07:49 Phosphorus 2.0 mg/dL (2.5-4.5) L 05/26/17 04:40 Magnesium 2.2 mg/dL (1.6-2.3) 05/26/17 04:40 Total Bilirubin 0.2 mg/dL (0.2-1.3) 05/31/17 07:49 AST 52 U/L (17-59) 05/31/17 07:49 ALT 40 U/L (21-72) 05/31/17 07:49 Alkaline Phosphatase 118 U/L (38-126) 05/31/17 07:49 Total Creatine Kinase 83 U/L (55-170) 05/20/17 04:16 CK-MB (CK-2) 1.9 ng/mL (0.0-2.4) 05/20/17 04:16 CK-MB (CK-2) Rel Index 2.3 05/20/17 04:16 Troponin I 0.031 ng/mL (0.000-0.034) 05/20/17 04:16 Total Protein 4.5 g/dL (6.3-8.2) L 05/31/17 07:49 Albumin 1.8 g/dL (3.5-5.0) L 05/31/17 07:49 Cortisol 24 ug/dL 05/19/17 15:46 Urine Color Yellow 05/19/17 17:05 Urine Appearance Cloudy (Clear) 05/19/17 17:05 Urine pH 5.5 (5.0-8.0) 05/19/17 17:05 Ur Specific [place] 1.015 (1.001-1.035) 05/19/17 17:05 Urine Protein 1+ (Negative) H 05/19/17 17:05 Urine Glucose (UA) Negative (Negative) 05/19/17 17:05 Urine Ketones Negative (Negative) 05/19/17 17:05 Urine Blood Small (Negative) H 05/19/17 17:05 Urine Nitrite Negative (Negative) 05/19/17 17:05 Urine Bilirubin Negative (Negative) 05/19/17 17:05 Urine Urobilinogen 3.0 mg/dL (<2.0) 05/19/17 17:05 Ur Leukocyte Esterase Large (Negative) H 05/19/17 17:05 Urine RBC 35 /hpf (0-5) H 05/19/17 17:05 Urine WBC 179 /hpf (0-5) H 05/19/17 17:05 Urine WBC Clumps Few /hpf (None) H 05/02/17 19:18 Urine Bacteria Rare /hpf (None) H 05/19/17 17:05 Hyaline Casts 3 /lpf (0-2) H 05/19/17 17:05 Urine Mucus Rare /hpf (None) H 05/19/17 17:05 Urine Yeast (Budding) Occasional /hpf (None) H 05/19/17 17:05 Stool Occult Blood Positive (Negative) 05/21/17 09:30 C. difficile (EIA) Intrp Negative (Negative) 05/03/17 15:54 Blood Type O Positive 05/21/17 15:25 Blood Type Recheck No 05/21/17 15:25 Antibody Screen NEGATIVE 05/21/17 15:25 Crossmatch See Detail 05/21/17 15:25 Spec Expiration Date 05/24/2017 - 232405/21/17 15:25 Microbiology 05/26/17 18:26 Blood Blood Culture - Preliminary No Growth after 120 hours 05/19/17 19:46 Blood Blood Culture - Final No Growth after 144 hours 05/19/17 18:30 Blood Blood Culture - Final No Growth after 144 hours 05/19/17 17:05 Urine,Catheterized Urine Culture - Final 05/04/17 23:29 Blood Blood Culture - Final No Growth after 144 hours 05/03/17 17:57 Blood Blood Culture - Final No Growth after 144 hours 05/03/17 03:00 Urine,Catheterized Urine Culture - Final Escherichia coli Assessment and Plan (1) Gram-negative sepsis with organ dysfunction Narrative/Plan: 82-year-old male transferred from extended care facility for alteration of his status. We'll request performed there was evidence of leukocytosis, acute renal failure, hyperkalemia. With this he was transferred to Hospital and is now received intervention and has been seen by nephrology. Because of his illness computed tomography scan of the abdomen and pelvis was performed showing evidence of the significant cecal dilatation and concerns to infection and abscess at that site. The patient has been seen by surgery and will plan colonoscopy when he is medically cleared. At the time of the consult fluid bolus was given since his computed tomography scan did not show evidence of heart failure. Antipyretics were given. The patient defervesced and his significant tachycardia and hypotension resolved. The patient has remained on selective care. His CODE STATUS is full, and apparently this has been addressed with the family and they do not yet understand the current ramifications of his illness. Ongoing discussion shall be held for more appropriate CODE STATUS. He has had a significant leukocytosis whichpersistant. There is evidence of urine culture with E. coli. His fever has resolved. Antibiotic therapy with Zosyn was initiated with concerns to the abdominal sepsis. We will also give coverage for his urinary tract infection based on prior cultures. He does have some crustiness to his eyes and Polysporin was given with improvement. His legs are wrapped continue the ulcer on the dorsum of the right foot. Local wound care as changed to medical Honey to try to debrided this better. Continue to wrap the legs. The dressing changes can be performed every other day. Assessment followed by surgery. Will need outpatient endoscopic evaluation if possible. There is been a significant leukocytosis minimal improvement. The patient had had adequate treatment for his urinary infection but was still receiving some antibiotic therapy for the abdominal infection. The conversion to oral therapy was noteffective His leukocytosis has improved with current interventions. Concern that leukocytosis is dropping due to worsening sepsis and the patient continues to decline. There is concerns to an aspiration event in the ertapenem should give us coverage also. DO NOT RESUSCITATE status has now been accomplished. Plan to complete antibiotics in a week, but still has leukocytosis. It is related the family has declined hospice. The follow-up computed tomography scan is performed. The prior sleep and abscess appears to have resolved. He is now this afternoon showing some improvement. He has profound protein calorie malnutrition as well as ongoing recovery from his sepsis. Current antibiotic therapy is ertapenem and this will continue as above. Case is discussed with the daughter in her significant other. Also with the nurse. Status: Acute (2) Acute renal failure Status: Acute (3) Hyperkalemia Status: Acute (4) UTI (urinary tract infection) Status: Acute
[2017-06-02] MEDS: SODIUM CHLORIDE 0.45% 1,000 ML IV SCH (06:01)
[2017-06-02] MEDS: ENOXAPARIN 40 MG/0.4 ML SYRINGE SQ SCH (08:48)
[2017-06-02] MEDS: AMMONIUM LACTATE 12% LOTION 225 GM BTL TOPICAL SCH ×2 (08:48→22:07)
[2017-06-02] MEDS: PANTOPRAZOLE 40 MG/10 ML VIAL IVP SCH (08:48)
[2017-06-02] MEDS: ERTAPENEM 1 GM in SODIUM CHLORIDE 0.9% 50 ML IVPB SCH (08:48)
[2017-06-02] MEDS: METOPROLOL TARTRATE 50 MG TAB PO SCH ×3 (08:49→21:48)
[2017-06-02] MEDS: LORATADINE 10 MG TAB PO SCH (08:49)
[2017-06-02] MEDS: BACITRACIN/POLYMYX 500-10,000 UNIT/GM OPHTH OINT 3.5 GM TUBE BOTH EYES SCH ×4 (08:49→22:07)
[2017-06-02] MEDS: SUCRALFATE 1 GM TAB PO SCH ×4 (08:49→21:49)
[2017-06-02] MEDS: BUDESONIDE 0.5 MG/2 ML NEBU INHALATION SCH ×2 (08:51→20:46)
[2017-06-02] MEDS: IPRATROPIUM-ALBUTEROL 3 ML NEB INHALATION SCH ×3 (08:51→20:46)
[2017-06-02 15:02] LABS: Basophils # (A) 0.1 k/uL (0-0.2); Basophils % (A) 0 %; CH 29.6; CHCM 30.2; Eosinophils # (A) 0.6 k/uL (0-0.7); Eosinophils % (A) 4 %; HDW 3.15; Hypochromasia Marked; Luc # (Auto) 0.29; Luc % (Auto) 2; Lymphocytes # (A) 1.4 k/uL (1.0-4.8); Lymphocytes % (A) 8 %; MCH 30.3 pg (25.0-35.0); MCHC 30.7 g/dL (31.0-37.0); MCV 98.7 fL (80.0-100.0); Macrocytosis Slight; Mean Platelet Volume 7.7; Monocytes # (A) 0.9 k/uL (0-1.0); Monocytes % (A) 5 %; Neutrophils % (A) 81 %; RBC 2.63 m/uL (4.30-5.90); RDW 15.7 % (11.5-15.5); WBC 17.2 k/uL (3.8-10.6); WBC (Perox) 17.88
[2017-06-02 15:13] LABS: ALT 40 U/L (21-72); AST 47 U/L (17-59); Alkaline Phosphatase 112 U/L (38-126); Anion Gap 5 mmol/L; Blood Urea Nitrogen 33 mg/dL (9-20); Calcium 7.7 mg/dL (8.4-10.2); Carbon Dioxide 22 mmol/L (22-30); Chloride 111 mmol/L (98-107); Glucose 109 mg/dL (74-99); Non-African American GFR(MDRD) >60 (>60 ml/min/1.73 sqM); Potassium 4.3 mmol/L (3.5-5.1); Sodium 138 mmol/L (137-145); Total Bilirubin 0.2 mg/dL (0.2-1.3); Total Protein 4.5 g/dL (6.3-8.2)
[2017-06-02] MEDS: TETRAHYDROZOLINE 0.05% OPHTH DROPS 15 ML BTL BOTH EYES PRN (15:40)
--- NOTE | 2017-06-02 17:44 | P.PN ---
Subjective 05/08/17- This is an 82-year-old male patient who came into the emergency department on 05/02/2017 from an extended care facility. Patient was noted to have a potassium of 6.4 at the extended care facility and therefore they sent him over. The patient did not have any further complaints and he has intermittent confusion which is his baseline. EKG performed in the emergency room did show sinus rhythm with occasional PVCs, patient had no ST segment elevation or depression or T-wave abnormalities. The patient was put on lactulose. Hypertension is also being worked up for possible rectal mass and will undergo colonoscopy when stable with Dr. Piña. All labs and reports have been reviewed. Patient is being seen and examined today on the sixth floor for pulmonary services related to progression of shortness of breath over the last few days. He has had a cough however denies any congestion. Nursing staff has denied any sputum production. He is alert and oriented 1 with intermittent confusion. Has been afebrile. Currently is on 3 L of supplemental oxygen via nasal cannula. It is unclear if the patient utilized oxygen in the extended care facility setting. Patient is also on a mechanical soft diet with aspiration precautions. 05/09/17- this patient is being evaluated and examined and seen on rounds today. All labs and reports were reviewed. The patient hyperkalemia has improved. The white blood cell count has come down to 12.8. Patient was noted to have increased lethargy and decreased cognition yesterday afternoon therefore a neurology consult was initiated. Patient is going for a CT of the brain as well as an EEG today. Patient's speech is noted to be slightly slurred and mumbled. Overnight he was noted to refuse care, had increase in agitation, and was refusing food and fluids. and primary care were updated. 05/10/17- this patient is being evaluated exam and seen today on the selective care unit. All labs and reports have been reviewed. Patient appears more awake today than previously. Patient did undergo a CT of the brain and EEG yesterday. Neurology and nephrology is on consult. Patient's prognosis is guarded and he has multiple comorbidities. Upon examination the patient's resting up in bed on room air states he occasionally has shortness of breath with exertion. He denies any cough or congestion at this time. Discharge planning is in process and appears the patient will go back to extended care facility when discharged. 05/11/17- patient is being seen in evaluated and examined today on the fifth floor. Patient is known to be slightly tired however is easily awoken. Currently he is resting up in bed on room air. Patient noticed to have a faint light red flat erythema rash to his right lateral chest. He denies any itching or pain. The area is small and diffuse. We will continue to monitor this. He does have Lotrisone cream for the area. On examination he denies any shortness of breath cough or congestion. Family at bedside updated on plan of care. 05/12/17- patient is being seen examined and evaluated today on the floor. The patient continues to be tired however is easily aroused upon examination. No further progression is noted of his rash to the right lateral chest. On examination patient's resting up in bed on room air. Shortness of breath as noted with exertion. Intermittent cough. He is afebrile, no overnight events. 05/13/17- patient is being seen examined and evaluated today on the floor. On examination the patient is resting in bed on room air, continues with shortness of breath on exertion. According to the nursing staff during breakfast the patient was coughing and choking and has dysphagia diet. Continue swallow evaluation with speech therapy has been ordered. 05/14/17-05/19/[address] Valverde's dictations 05/20/17- patient is being seen examined and evaluated today in the intensive care unit. Currently the patient is resting up in bed on 2 L of supplemental oxygen via nasal cannula. Patient continues to be tachycardic and oxygen dependent. Patient did undergo a procedure for PEG tube and is currently tolerating tube feeds. Chest x-ray has been reviewed from this morning and does show a correlation for CHF, underlying pneumonia not excluded. Upon examination the patient's vasopressors are on hold. We are trying to wean the patient off of pressors at this time. 05/21/17- patient is being seen examined and evaluated today in the intensive care unit. Patient has been noted to have significant tachycardia with episodes of hypotension, he was noted to have increased bowel movements that were loose and dark. Occult blood was sent to lab and came back positive. The patient had FMF in place. Surgical has been updated. Hemoglobin noted to drop from 8.6 this morning now down to 7.3. Orders given for 2 units of packed red blood cells as well as consult interventional radiology for PICC line insertion. chest x-ray from this afternoon revealed improved variation in both lung bases. 05/22/17- patient seen and examined in the ICU remains hypertensive but intermittent continue to have episodes of tachycardia the beta blockers are being used cautiously currently patient heart rate is about 150-160 and appears to be sinus tachycardia Cardizem drip is not working so is being discontinued patient is on IV Lopressor has been on by mouth Lopressor as well he has been transfused with packed RBC indexes of bleeding that has been seen overnight has appears to settle down patient slightly more awake now family is present at bedside care plan discussed with them the advice to proceed with a DO NOT RESUSCITATE CODE STATUS, patient is status post PICC line placement 05/23/17- patient is being seen examined and evaluated today in the intensive care unit. Patient has received a total of 4 units of packed red blood cells. Hemoglobin is noted to drop from 11.8 to 9.4 today. Surgery is also on consult , however he has a high risk candidate. His fecal management system is in place and the stools look less maroon today than previous. He continues to have intermittent confusion. His sodium was noted to be 155 today, as well as a chloride of 129. We have increased his free water flushes via PEG tube to 250 ML's every 6. Upon examination the patient's resting up in bed on 3 L of supplemental oxygen via nasal cannula. He continues to have a dry cough. Currently he is afebrile, no further complaints. 05/24/17-05/27/17- See Dr. Austin note, as he was on for coverage 05/28/17- see Dr. Valverde's progress note 05/29/17- patient is seen examined and evaluated today on the selective care unit. Patient continues to be nonverbal and noncommunicative with intermittent anxiety and confusion. Patient has failed to show any significant improvement, he remains very debilitated, no evidence of any active bleeding is present. Patient has been downgraded to the medical surgical unit. Due to the patient's poor prognosis it has been suggested the patient should be evaluated for hospice , will defer to primary service in that regard. Agent has been receiving nutrition via PEG tube and has been tolerating that well. He continues to have Granados catheter as well as fecal management system. No further bleeding has been noted. 05/30/17- patient is seen examined and evaluated today on rounds. Patient has not shown any signs of improvement, in fact he continues to slowly decline. His prognosis is highly guarded in becoming poor. Hospice was brought up as an option to the however she declined wanting any such services at this time. She wants to continue with treatment. Patient's would like him to go to an extended care facility for further treatment. Patient is a DO NOT RESUSCITATE at this time. Patient continues on 3 L of supplemental oxygen via nasal cannula. He continues to be short of breath with any exertion or activity. Does have a chronic cough. Cough is ineffective in bringing up any secretions. Patient does have PEG tube and is receiving nutrition without any significant residual volumes. Labs and reports for reviewed. 05/31/17- she has seen examined and evaluated today on rounds. Patient currently resting in bed on 3 L of supplemental oxygen via nasal cannula. His shortness of breath continues and is unchanged. The chronic cough as well as ineffective cough also unchanged. Patient is receiving nutritional support via PEG tube without any significant residual volumes. Discharge planning is in place to possibly ECF in the near future. He is afebrile, no overnight events. All labs and reports been reviewed. 06/01/17- patient is being seen, examined and evaluated today on rounds. Patient appartently pulled IVs out last night and nurses are unable to gain access at this time. Patient may need to go for a PICC line insertion if the current medications are unable to be switched over to oral agents that could go through the PEG tube. ID currently manageing antibiotics, will defer to them if the patient will require a new PICC insertion or not. The patient remains confused and short of breath with exertions. Utilizing 3L of supplemental oxygen. He is tolerating tube feedings. afebrile. All labs and reports reviewed. 06/02/17- he has seen examined and evaluated today on rounds. Patient currently resting in bed on 3 L of supplemental oxygen via nasal cannula. His shortness of breath continues and is unchanged. The chronic cough as well as ineffective cough also unchanged. Patient is receiving nutritional support via PEG tube without any significant residual volumes. Discharge planning is in place to possibly ECF in the near future. He is afebrile, no overnight events. All labs and reports been reviewed. nursing staff was able to get a peripheral IV access. Objective - Vital Signs Vital signs: Vital Signs Temp 98.8 F 06/02/17 16:00 Pulse 113 H 06/02/17 16:00 Resp 18 06/02/17 16:00 BP 120/67 06/02/17 16:00 Pulse Ox 99 06/02/17 17:12 Intake & Output 06/01/17 06/02/17 06/02/17 18:59 06:59 18:59 Intake Total 443 699 5220 Output Total 2250 1250 Balance -1815 -745 1430 Weight 77.5 kg 74.5 kg Intake: IV 400 600 Sodium Chloride 0.45% 1, 400 600 000 ml @ 50 mls/hr IV . Q20H [facility] Rx#:[id number] Intake, IV Titration 150 50 Amount Ertapenem 1 gm In Sodium 50 50 Chloride 0.9% 50 ml @ 100 mls/hr IVPB DAILY [facility] Rx #:[id number] Sodium Chloride 0.45% 1, 100 000 ml @ 50 mls/hr IV . Q20H [facility] Rx#:[id number] Tube Feeding 285 105 780 Output: Urine 1150 400 Uretheral (Granados) 950 Stool 1100 850 Other: Voiding Method Indwelling Catheter Indwelling Catheter Indwelling Catheter # Voids 0 - Exam GENERAL EXAM: Alert, confusion noted which is baseline, comfortable in no apparent distress. HEAD: Normocephalic. EYES: Normal reaction of pupils, equal size. NOSE: Clear with pink turbinates. THROAT: No erythema or exudates. NECK: No masses, no JVD. CHEST: No chest wall deformity. LUNGS: Equal air entry with no crackles, wheeze, rhonchi or dullness. Breath sounds decreased bilaterally. CVS: S1 and S2 normal with no audible mumurs, regular rhythm. ABDOMEN: No hepatosplenomegaly, normal bowel sounds, no guarding or rigidity. PEG tube in place clean dry and intact, FMS in place EXTREMITIES: +2 edema noted, pedal pulses palpable. Chronic skin changes noted , bilateral legs wrapped SKIN: Multiple skin tears, flat erythema diffuse rash to right lateral chest, cream applied CENTRAL NERVOUS SYSTEM: No focal deficits, moves all 4 extremities. - Labs CBC & Chem 7: 06/02/17 14:44 06/02/17 14:44 Labs: Abnormal Lab Results - Last 24 Hours (Table) 06/02/17 06/02/17 Range/Units 14:44 14:44 WBC 17.2 H (3.8-10.6) k/uL RBC 2.63 L (4.30-5.90) m/uL Hgb 8.0 L (13.0-17.5) gm/dL Hct 26.0 L (39.0-53.0) % MCHC 30.7 L (31.0-37.0) g/dL RDW 15.7 H (11.5-15.5) % Plt Count 648 H (150-450) k/uL Neutrophils # 14.0 H (1.3-7.7) k/uL Chloride 111 H (98-107) mmol/L BUN 33 H (9-20) mg/dL Glucose 109 H (74-99) mg/dL Calcium 7.7 L (8.4-10.2) mg/dL Total Protein 4.5 L (6.3-8.2) g/dL Albumin 1.8 L (3.5-5.0) g/dL Microbiology - Last 24 Hours (Table) 05/26/17 18:26 Blood Culture - Final Blood No Growth after 144 hours Assessment and Plan Plan: Assessment Supraventricular tachycardia likely related to the intravascular water depletion dehydration and acute blood loss anemia with ongoing intermittent GI loss Recurrent intermittent aspiration with episodes of silent aspiration patient is status post PEG tube placement Urinary tract infection, culture positive for gram negatives bacilli and E. coli , which appears to be ESBL, IVS adjust antibiotics Sepsis with fever, gram-negative Acute hypoxic respiratory failure Hyperkalemia, improved Acute renal failure Urinary tract infection, culture positive for gram negatives bacilli and E. coli Hypernatremia likely related to decreased oral intake Probable rectal mass, currently being worked up Diarrhea History of CVA Hypotension Plan Patient is being worked up to potentially go to extended care facility in the near future. Defer to ID or primary to see if patient will require a PICC line insertion for antibiotics. All labs and reports have been reviewed Medications have been reviewed and will be continued as ordered. Patient's prognosis is guarded. Patient did have an interventional radiology consult to have PICC line inserted. Patient known to be resistive to care and medical treatment. Continue to monitor electrolytes. Patient will undergo colonoscopy once cleared , in the outpatient setting. Continue with pulmonary hygiene, coughing and deep breathing exercises, and supportive care. Supplemental oxygen to maintain oxygen saturations of 92% or better. Continue nebulizer treatments in the form of DuoNeb and budesonide. . GI and DVT prophylaxis. Appreciate consults recommendations. Patient is currently being worked up for discharge planning to extended care facility. We will continue to monitor labs/results and adjust treatment as necessary. Further recommendations pending. I performed an examination of the patient and discussed their management with the nurse practitioner. I have reviewed the nurse practitioner's note and agree with the documented findings and plan of care.
[2017-06-02] MEDS: HYDROcodone/APAP 15 ML SOLUTION PEG/G-TUBE PRN (18:18)
--- NOTE | 2017-06-02 23:04 | PN ---
PROGRESS NOTE DATE OF SERVICE: 06/02/2017 HISTORY: I am covering for Dr. Anderson. This 82-year-old gentleman who was admitted with sepsis and multiple other medical problems also had PEG tube insertion. The patient also is confused. Today the patient is slightly better. The patient had a lack of IV access yesterday. IV could be obtained and antibiotics have been given. Today the patient is slightly more alert but stuporous at this time and confused. PAST MEDICAL HISTORY: Reviewed. REVIEW OF SYSTEMS: Could not be taken. CURRENT MEDICATIONS: Reviewed and include: 1. Tylenol 650 every 4 p.r.n. 2. [place] elixir 7.5 every 6 hours p.r.n. 3. DuoNeb q.i.d. and p.r.n. 4. Bacitracin. 5. Pulmicort. 6. Valium. 7. Lovenox. 8. Ertapenem 1 g daily. 9. Lac-Hydrin. 10.Claritin. 11.Ativan. 12.Milk of magnesia. 13.Lopressor. 14.P.r.n. medication, replacement protocols, Protonix and Carafate, doses reviewed. PHYSICAL EXAMINATION: GENERAL: The patient is stuporous. VITAL SIGNS: Pulse is 101, blood pressure 126/70, respiration 18, temperature 98.8. HEENT: Conjunctivae normal. Oral mucosa moist. NECK: No jugular venous distention. No lymph node enlargement. CARDIOVASCULAR: S1 and S2. LUNGS: Breath sounds diminished at the bases. A few scattered rhonchi. No crackles. ABDOMEN: Soft. PEG tube in situ. EXTREMITIES: Legs no edema. No cyanosis. NERVOUS SYSTEM: Diffusely weak. LAB STUDIES: WBC 17.1, hemoglobin 8, sodium 130, potassium 4.3. ASSESSMENT: 1. Acute urinary tract infection with sepsis. ESBL E coli present on admission. 2. Acute renal failure. 3. Change in mental status, acute metabolic encephalopathy. 4. Gram-negative sepsis. 5. Status post PEG tube insertion. 6. History of sinus tachycardia. 7. History of cerebrovascular accident/transient ischemic attack. 8. Hyponatremia. 9. Status post PEG tube placement. 10.Anemia, possibly acute blood-loss anemia from GI blood loss and bleed, stable. 11.Increased WBC. 12.Hypoalbuminemia with severe protein calorie malnutrition. 13.No code, no CPR, no vent. RECOMMENDATIONS AND DISCUSSION: Continue current medications, continue symptomatic management and treatment. Otherwise at this time I would recommend to continue with the current medication, continue with infectious disease evaluation. Antibiotics to be continued. Monitor fluids and electrolytes closely. Continue with aspiration precautions. Guarded prognosis. Overall prognosis guarded because of multiple complex medical issues. Discussed with family and staff. Further recommendations to follow. SABRINA / DEEPALIN: [id number] /
[2017-06-03] MEDS: SODIUM CHLORIDE 0.45% 1,000 ML IV SCH (03:54)
[2017-06-03 06:15] LABS: Anisocytosis Slight; Basophils # (A) 0.1 k/uL (0-0.2); Basophils % (A) 1 %; CH 29.9; CHCM 30.9; Eosinophils # (A) 0.6 k/uL (0-0.7); Eosinophils % (A) 3 %; HCT 28.7 % (39.0-53.0); HDW 3.15; HGB 8.9 gm/dL (13.0-17.5); Hypochromasia Moderate; Luc # (Auto) 0.21; Luc % (Auto) 1; Lymphocytes # (A) 1.4 k/uL (1.0-4.8); Lymphocytes % (A) 7 %; MCH 30.1 pg (25.0-35.0); MCHC 30.9 g/dL (31.0-37.0); MCV 97.5 fL (80.0-100.0); Macrocytosis Slight; Mean Platelet Volume 8.5; Monocytes % (A) 5 %; Neutrophils # (A) 14.9 k/uL (1.3-7.7); Neutrophils % (A) 82 %; RBC 2.94 m/uL (4.30-5.90); RDW 16.1 % (11.5-15.5); WBC 18.1 k/uL (3.8-10.6); WBC (Perox) 19.95
[2017-06-03 06:32] LABS: Anion Gap 6 mmol/L; Blood Urea Nitrogen 37 mg/dL (9-20); Calcium 7.9 mg/dL (8.4-10.2); Carbon Dioxide 22 mmol/L (22-30); Chloride 107 mmol/L (98-107); Glucose 118 mg/dL (74-99); Non-African American GFR(MDRD) >60 (>60 ml/min/1.73 sqM); Potassium 4.5 mmol/L (3.5-5.1); Sodium 135 mmol/L (137-145)
--- NOTE | 2017-06-03 07:50 | P.PN ---
Subjective Principal diagnosis: Continuing care with confusion. This is a continue pressure 82-year-old white male essentially admitted for sepsis and significant renal failure. There is element of diverticular abscess and he was placed on appropriate antibiotic treatment. He is scheduled to have appropriate colonoscopy on stabilizing. However, we have been having difficulty with appropriate resolution of infection secondary to multiple comorbidities. Feeding tube was placed about 2 weeks ago and his not been improving. He is unresponsive and mumbling. I had a short discussion with his this morning who wishes to have a family conference in the a.m. Otherwise , the patient is unable to voice any new complaints. He is mumbling when asked appropriate questions. He does not seem to be in pain but he is bedridden. Appreciate infectious disease and pulmonology input. Objective - Vital Signs Vital signs: Vital Signs Temp 98.0 F 06/02/17 20:00 Pulse 115 H 06/03/17 04:00 Resp 20 06/03/17 04:00 BP 133/64 06/02/17 20:00 Pulse Ox 94 L 06/02/17 20:00 Intake & Output 06/02/17 06/03/17 06/03/17 18:59 06:59 18:59 Intake Total 1530 1530 0 Output Total 400 Balance 1130 1530 0 Weight 78.9 kg Intake: IV 600 750 Sodium Chloride 0.45% 1, 600 750 000 ml @ 50 mls/hr IV . Q20H [facility] Rx#:[id number] Intake, IV Titration 50 Amount Ertapenem 1 gm In Sodium 50 Chloride 0.9% 50 ml @ 100 mls/hr IVPB DAILY [facility] Rx #:[id number] Oral 0 Tube Feeding 780 780 Other 100 Output: Urine 200 Stool 200 Other: Voiding Method Indwelling Catheter Indwelling Catheter - Constitutional General appearance: Present: average body habitus - Respiratory Respiratory: bilateral: diminished - Cardiovascular Rhythm: regular - Gastrointestinal General gastrointestinal: Present: soft. Absent: tenderness - Integumentary Integumentary: Present: rash - Musculoskeletal Musculoskeletal: Present: generalized weakness - Psychiatric Psychiatric: Absent: A&O x's 3 - Labs CBC & Chem 7: 06/03/17 05:54 06/03/17 05:54 Labs: Abnormal Lab Results - Last 24 Hours (Table) 06/02/17 06/02/17 06/03/17 Range/Units 14:44 14:44 05:54 WBC 17.2 H 18.1 H (3.8-10.6) k/uL RBC 2.63 L 2.94 L (4.30-5.90) m/uL Hgb 8.0 L 8.9 L (13.0-17.5) gm/dL Hct 26.0 L 28.7 L (39.0-53.0) % MCHC 30.7 L 30.9 L (31.0-37.0) g/dL RDW 15.7 H 16.1 H (11.5-15.5) % Plt Count 648 H 732 H (150-450) k/uL Neutrophils # 14.0 H 14.9 H (1.3-7.7) k/uL Sodium (137-145) mmol/L Chloride 111 H (98-107) mmol/L BUN 33 H (9-20) mg/dL Glucose 109 H (74-99) mg/dL Calcium 7.7 L (8.4-10.2) mg/dL Total Protein 4.5 L (6.3-8.2) g/dL Albumin 1.8 L (3.5-5.0) g/dL 06/03/17 Range/Units 05:54 WBC (3.8-10.6) k/uL RBC (4.30-5.90) m/uL Hgb (13.0-17.5) gm/dL Hct (39.0-53.0) % MCHC (31.0-37.0) g/dL RDW (11.5-15.5) % Plt Count (150-450) k/uL Neutrophils # (1.3-7.7) k/uL Sodium 135 L (137-145) mmol/L Chloride (98-107) mmol/L BUN 37 H (9-20) mg/dL Glucose 118 H (74-99) mg/dL Calcium 7.9 L (8.4-10.2) mg/dL Total Protein (6.3-8.2) g/dL Albumin (3.5-5.0) g/dL Assessment and Plan (1) Acute renal failure Status: Acute (2) Gram-negative sepsis with organ dysfunction Status: Acute (3) CVA (cerebral vascular accident) Status: Acute Plan: After having discussion with the family, I'll suggest palliative versus hospice care in a.m. His prognosis is very poor at this point. Discussion with care team here briefly also. Electrolytes are present stable. Check CBC and CMP in a.m. Continue antibiotic treatment.
[2017-06-03] MEDS: IPRATROPIUM-ALBUTEROL 3 ML NEB INHALATION SCH ×3 (08:01→20:18)
[2017-06-03] MEDS: BUDESONIDE 0.5 MG/2 ML NEBU INHALATION SCH ×2 (08:01→20:18)
[2017-06-03] MEDS: BACITRACIN/POLYMYX 500-10,000 UNIT/GM OPHTH OINT 3.5 GM TUBE BOTH EYES SCH ×4 (08:24→21:29)
[2017-06-03] MEDS: AMMONIUM LACTATE 12% LOTION 225 GM BTL TOPICAL SCH ×2 (08:24→21:28)
[2017-06-03] MEDS: LORATADINE 10 MG TAB PO SCH (08:27)
[2017-06-03] MEDS: SUCRALFATE 1 GM TAB PO SCH ×4 (08:27→21:17)
[2017-06-03] MEDS: PANTOPRAZOLE 40 MG/10 ML VIAL IVP SCH ×2 (08:27→12:49)
[2017-06-03] MEDS: METOPROLOL TARTRATE 50 MG TAB PO SCH ×3 (08:27→21:17)
[2017-06-03] MEDS: ENOXAPARIN 40 MG/0.4 ML SYRINGE SQ SCH (08:27)
--- NOTE | 2017-06-03 11:04 | P.PN ---
Subjective 05/08/17- This is an 82-year-old male patient who came into the emergency department on 05/02/2017 from an extended care facility. Patient was noted to have a potassium of 6.4 at the extended care facility and therefore they sent him over. The patient did not have any further complaints and he has intermittent confusion which is his baseline. EKG performed in the emergency room did show sinus rhythm with occasional PVCs, patient had no ST segment elevation or depression or T-wave abnormalities. The patient was put on lactulose. Hypertension is also being worked up for possible rectal mass and will undergo colonoscopy when stable with Dr. Piña. All labs and reports have been reviewed. Patient is being seen and examined today on the sixth floor for pulmonary services related to progression of shortness of breath over the last few days. He has had a cough however denies any congestion. Nursing staff has denied any sputum production. He is alert and oriented 1 with intermittent confusion. Has been afebrile. Currently is on 3 L of supplemental oxygen via nasal cannula. It is unclear if the patient utilized oxygen in the extended care facility setting. Patient is also on a mechanical soft diet with aspiration precautions. 05/09/17- this patient is being evaluated and examined and seen on rounds today. All labs and reports were reviewed. The patient hyperkalemia has improved. The white blood cell count has come down to 12.8. Patient was noted to have increased lethargy and decreased cognition yesterday afternoon therefore a neurology consult was initiated. Patient is going for a CT of the brain as well as an EEG today. Patient's speech is noted to be slightly slurred and mumbled. Overnight he was noted to refuse care, had increase in agitation, and was refusing food and fluids. and primary care were updated. 05/10/17- this patient is being evaluated exam and seen today on the selective care unit. All labs and reports have been reviewed. Patient appears more awake today than previously. Patient did undergo a CT of the brain and EEG yesterday. Neurology and nephrology is on consult. Patient's prognosis is guarded and he has multiple comorbidities. Upon examination the patient's resting up in bed on room air states he occasionally has shortness of breath with exertion. He denies any cough or congestion at this time. Discharge planning is in process and appears the patient will go back to extended care facility when discharged. 05/11/17- patient is being seen in evaluated and examined today on the fifth floor. Patient is known to be slightly tired however is easily awoken. Currently he is resting up in bed on room air. Patient noticed to have a faint light red flat erythema rash to his right lateral chest. He denies any itching or pain. The area is small and diffuse. We will continue to monitor this. He does have Lotrisone cream for the area. On examination he denies any shortness of breath cough or congestion. Family at bedside updated on plan of care. 05/12/17- patient is being seen examined and evaluated today on the floor. The patient continues to be tired however is easily aroused upon examination. No further progression is noted of his rash to the right lateral chest. On examination patient's resting up in bed on room air. Shortness of breath as noted with exertion. Intermittent cough. He is afebrile, no overnight events. 05/13/17- patient is being seen examined and evaluated today on the floor. On examination the patient is resting in bed on room air, continues with shortness of breath on exertion. According to the nursing staff during breakfast the patient was coughing and choking and has dysphagia diet. Continue swallow evaluation with speech therapy has been ordered. 05/14/17-05/19/[address] Valverde's dictations 05/20/17- patient is being seen examined and evaluated today in the intensive care unit. Currently the patient is resting up in bed on 2 L of supplemental oxygen via nasal cannula. Patient continues to be tachycardic and oxygen dependent. Patient did undergo a procedure for PEG tube and is currently tolerating tube feeds. Chest x-ray has been reviewed from this morning and does show a correlation for CHF, underlying pneumonia not excluded. Upon examination the patient's vasopressors are on hold. We are trying to wean the patient off of pressors at this time. 05/21/17- patient is being seen examined and evaluated today in the intensive care unit. Patient has been noted to have significant tachycardia with episodes of hypotension, he was noted to have increased bowel movements that were loose and dark. Occult blood was sent to lab and came back positive. The patient had FMF in place. Surgical has been updated. Hemoglobin noted to drop from 8.6 this morning now down to 7.3. Orders given for 2 units of packed red blood cells as well as consult interventional radiology for PICC line insertion. chest x-ray from this afternoon revealed improved variation in both lung bases. 05/22/17- patient seen and examined in the ICU remains hypertensive but intermittent continue to have episodes of tachycardia the beta blockers are being used cautiously currently patient heart rate is about 150-160 and appears to be sinus tachycardia Cardizem drip is not working so is being discontinued patient is on IV Lopressor has been on by mouth Lopressor as well he has been transfused with packed RBC indexes of bleeding that has been seen overnight has appears to settle down patient slightly more awake now family is present at bedside care plan discussed with them the advice to proceed with a DO NOT RESUSCITATE CODE STATUS, patient is status post PICC line placement 05/23/17- patient is being seen examined and evaluated today in the intensive care unit. Patient has received a total of 4 units of packed red blood cells. Hemoglobin is noted to drop from 11.8 to 9.4 today. Surgery is also on consult , however he has a high risk candidate. His fecal management system is in place and the stools look less maroon today than previous. He continues to have intermittent confusion. His sodium was noted to be 155 today, as well as a chloride of 129. We have increased his free water flushes via PEG tube to 250 ML's every 6. Upon examination the patient's resting up in bed on 3 L of supplemental oxygen via nasal cannula. He continues to have a dry cough. Currently he is afebrile, no further complaints. 05/24/17-05/27/17- See Dr. Austin note, as he was on for coverage 05/28/17- see Dr. Valverde's progress note 05/29/17- patient is seen examined and evaluated today on the selective care unit. Patient continues to be nonverbal and noncommunicative with intermittent anxiety and confusion. Patient has failed to show any significant improvement, he remains very debilitated, no evidence of any active bleeding is present. Patient has been downgraded to the medical surgical unit. Due to the patient's poor prognosis it has been suggested the patient should be evaluated for hospice , will defer to primary service in that regard. Agent has been receiving nutrition via PEG tube and has been tolerating that well. He continues to have Granados catheter as well as fecal management system. No further bleeding has been noted. 05/30/17- patient is seen examined and evaluated today on rounds. Patient has not shown any signs of improvement, in fact he continues to slowly decline. His prognosis is highly guarded in becoming poor. Hospice was brought up as an option to the however she declined wanting any such services at this time. She wants to continue with treatment. Patient's would like him to go to an extended care facility for further treatment. Patient is a DO NOT RESUSCITATE at this time. Patient continues on 3 L of supplemental oxygen via nasal cannula. He continues to be short of breath with any exertion or activity. Does have a chronic cough. Cough is ineffective in bringing up any secretions. Patient does have PEG tube and is receiving nutrition without any significant residual volumes. Labs and reports for reviewed. 05/31/17- she has seen examined and evaluated today on rounds. Patient currently resting in bed on 3 L of supplemental oxygen via nasal cannula. His shortness of breath continues and is unchanged. The chronic cough as well as ineffective cough also unchanged. Patient is receiving nutritional support via PEG tube without any significant residual volumes. Discharge planning is in place to possibly ECF in the near future. He is afebrile, no overnight events. All labs and reports been reviewed. 06/01/17- patient is being seen, examined and evaluated today on rounds. Patient appartently pulled IVs out last night and nurses are unable to gain access at this time. Patient may need to go for a PICC line insertion if the current medications are unable to be switched over to oral agents that could go through the PEG tube. ID currently manageing antibiotics, will defer to them if the patient will require a new PICC insertion or not. The patient remains confused and short of breath with exertions. Utilizing 3L of supplemental oxygen. He is tolerating tube feedings. afebrile. All labs and reports reviewed. 06/02/17- he has seen examined and evaluated today on rounds. Patient currently resting in bed on 3 L of supplemental oxygen via nasal cannula. His shortness of breath continues and is unchanged. The chronic cough as well as ineffective cough also unchanged. Patient is receiving nutritional support via PEG tube without any significant residual volumes. Discharge planning is in place to possibly ECF in the near future. He is afebrile, no overnight events. All labs and reports been reviewed. nursing staff was able to get a peripheral IV access. 06/03/17- patient is being seen examined and evaluated today on rounds. Patient continues to be on 3L supplemental oxygen via nasal cannula. He has remained relatively unchanged. Continues with nutritional support via PEG tube. The patient's prognosis is poor and guarded. Apparently there is a family meeting to take place tomorrow morning with primary services. They will be discussing possible palliative/hospice care and we agree with this recommendation. Objective - Vital Signs Vital signs: Vital Signs Temp 98.0 F 06/02/17 20:00 Pulse 100 06/03/17 08:15 Resp 20 06/03/17 08:00 BP 133/64 06/02/17 20:00 Pulse Ox 94 L 06/02/17 20:00 Intake & Output 06/02/17 06/03/17 06/03/17 18:59 06:59 18:59 Intake Total 1530 1530 260 Output Total 400 Balance 1130 1530 260 Weight 78.9 kg Intake: IV 600 750 Sodium Chloride 0.45% 1, 600 750 000 ml @ 50 mls/hr IV . Q20H [facility] Rx#:[id number] Intake, IV Titration 50 Amount Ertapenem 1 gm In Sodium 50 Chloride 0.9% 50 ml @ 100 mls/hr IVPB DAILY [facility] Rx #:[id number] Oral 0 Tube Feeding 780 780 260 Other 100 Output: Urine 200 Stool 200 Other: Voiding Method Indwelling Catheter Indwelling Catheter Indwelling Catheter - Exam GENERAL EXAM: Alert, confusion noted which is baseline, comfortable in no apparent distress. HEAD: Normocephalic. EYES: Normal reaction of pupils, equal size. NOSE: Clear with pink turbinates. THROAT: No erythema or exudates. NECK: No masses, no JVD. CHEST: No chest wall deformity. LUNGS: Equal air entry with no crackles, wheeze, rhonchi or dullness. Breath sounds decreased bilaterally. CVS: S1 and S2 normal with no audible mumurs, regular rhythm. ABDOMEN: No hepatosplenomegaly, normal bowel sounds, no guarding or rigidity. PEG tube in place clean dry and intact, FMS in place EXTREMITIES: +2 edema noted, pedal pulses palpable. Chronic skin changes noted , bilateral legs wrapped SKIN: Multiple skin tears, flat erythema diffuse rash to right lateral chest, cream applied CENTRAL NERVOUS SYSTEM: No focal deficits, moves all 4 extremities. - Labs CBC & Chem 7: 06/03/17 05:54 06/03/17 05:54 Labs: Abnormal Lab Results - Last 24 Hours (Table) 06/02/17 06/02/17 06/03/17 Range/Units 14:44 14:44 05:54 WBC 17.2 H 18.1 H (3.8-10.6) k/uL RBC 2.63 L 2.94 L (4.30-5.90) m/uL Hgb 8.0 L 8.9 L (13.0-17.5) gm/dL Hct 26.0 L 28.7 L (39.0-53.0) % MCHC 30.7 L 30.9 L (31.0-37.0) g/dL RDW 15.7 H 16.1 H (11.5-15.5) % Plt Count 648 H 732 H (150-450) k/uL Neutrophils # 14.0 H 14.9 H (1.3-7.7) k/uL Sodium (137-145) mmol/L Chloride 111 H (98-107) mmol/L BUN 33 H (9-20) mg/dL Glucose 109 H (74-99) mg/dL Calcium 7.7 L (8.4-10.2) mg/dL Total Protein 4.5 L (6.3-8.2) g/dL Albumin 1.8 L (3.5-5.0) g/dL 06/03/17 Range/Units 05:54 WBC (3.8-10.6) k/uL RBC (4.30-5.90) m/uL Hgb (13.0-17.5) gm/dL Hct (39.0-53.0) % MCHC (31.0-37.0) g/dL RDW (11.5-15.5) % Plt Count (150-450) k/uL Neutrophils # (1.3-7.7) k/uL Sodium 135 L (137-145) mmol/L Chloride (98-107) mmol/L BUN 37 H (9-20) mg/dL Glucose 118 H (74-99) mg/dL Calcium 7.9 L (8.4-10.2) mg/dL Total Protein (6.3-8.2) g/dL Albumin (3.5-5.0) g/dL Assessment and Plan Plan: Assessment Supraventricular tachycardia likely related to the intravascular water depletion dehydration and acute blood loss anemia with ongoing intermittent GI loss Recurrent intermittent aspiration with episodes of silent aspiration patient is status post PEG tube placement Urinary tract infection, culture positive for gram negatives bacilli and E. coli , which appears to be ESBL, IVS adjust antibiotics Sepsis with fever, gram-negative Acute hypoxic respiratory failure Hyperkalemia, improved Acute renal failure Urinary tract infection, culture positive for gram negatives bacilli and E. coli Hypernatremia likely related to decreased oral intake Probable rectal mass, currently being worked up Diarrhea History of CVA Hypotension Plan Family meeting will take place with primary services tomorrow morning to discuss possible hospice/palliative care and we agree with this recommendation due to the multiple comorbidities and declining condition. All labs and reports have been reviewed Medications have been reviewed and will be continued as ordered. Patient's prognosis is guarded. Patient did have an interventional radiology consult to have PICC line inserted. Patient known to be resistive to care and medical treatment. Continue to monitor electrolytes. Patient will undergo colonoscopy once cleared, in the outpatient setting. Continue with pulmonary hygiene, coughing and deep breathing exercises , and supportive care. Supplemental oxygen to maintain oxygen saturations of 92 % or better. Continue nebulizer treatments in the form of DuoNeb and budesonide. . GI and DVT prophylaxis. Appreciate consults recommendations. Patient is currently being worked up for discharge planning to extended care facility. We will continue to monitor labs/results and adjust treatment as necessary. Further recommendations pending. I performed an examination of the patient and discussed their management with the nurse practitioner. I have reviewed the nurse practitioner's note and agree with the documented findings and plan of care.
[2017-06-03 11:52] VITALS: BMI 29.8
[2017-06-03] MEDS: ERTAPENEM 1 GM in SODIUM CHLORIDE 0.9% 50 ML IVPB SCH (12:49)
--- NOTE | 2017-06-03 21:07 | P.PN ---
Subjective Principal diagnosis: sepsis 82-year-old male resident of [facility] was found evidence of multiple abnormal labs included acute renal failure and hyperkalemia. The patient was transferred from the [facility] for further intervention. Infectious diseases consultation was requested when the patient developed a high-grade fever reportedly over 104. the consult was initiated as the patient became febrile, hypotensive and tachycardic. The patient is a poor historian. The patient today is a bit more comfortable than reported last evening. He relates that he has minimal hunger. His mouth is dry. As related lactic acid was drawn which was elevated and had evidence of leukocytosis, the patient was given fluids and antibiotic therapy with Zosyn given the concerns to urinary system as well as potential abdominal source since he was having some diarrhea. As the patient is slightly more comfortable. Has been seen by surgery and is being monitored for a potential colonoscopy in the future. Regarding ongoing treatment for the colonic abscess. No complaints except for fatigue.. As noted there is been the difficulty with his nutrition. Concerns of an aspiration event. PEG tube is been placed and is being utilized at this time under the supervision of surgery. Patient does answer occasionally to direct questioning The patient's daughter and significant other are present. There relates been a tough day. Discussion occurred with the primary team again talking about hospice which is certainly a viable option at this time. The patient's daughter relates that the mother is just not ready. I do point out to the daughter it has been brought up since his time in the ICU. Patient remained confused. Is again removed his IV access. He continues to be unable to cooperate with his care. Objective - Vital Signs Vital signs: Vital Signs Temp 98.1 F 06/03/17 16:00 Pulse 100 06/03/17 20:18 Resp 20 06/03/17 16:00 BP 137/97 06/03/17 16:00 Pulse Ox 99 06/03/17 16:00 Intake & Output 06/03/17 06/03/17 06/04/17 06:59 18:59 06:59 Intake Total 1530 780 65 Output Total 800 Balance 1530 -20 65 Weight 78.9 kg 78.9 kg Intake: IV 750 Sodium Chloride 0.45% 1, 750 000 ml @ 50 mls/hr IV . Q20H [facility] Rx#:[id number] Oral 0 Tube Feeding 780 780 65 Output: Urine 800 Other: Voiding Method Indwelling Catheter Indwelling Catheter - Exam 82-year-old male poor historian HEENT: Anicteric conjunctiva are pink and mildly crusty nasal mucosa grossly intact without significant lesions, there is no thrush but the oral cavity is very dry Neck: The neck is supple with no nuchal rigidity, without significant lymphadenopathy or thyromegaly. Lungs: There is symmetrical air entry. Scattered wheezes and basilar crackles are noted. Heart: Irregular with soft S4 no distinct murmur click or rub Abdomen: Positive bowel sounds soft and nontender without palpable masses or organomegaly. There was no guarding or rebound. PEG tube site is intact without erythema or drainage Extremities: The extremities have some minimal trace edema in the upper extremities have multiple weeping areas. The lower extremities have evidence of the extensive skin lesion the bilateral lower extremities. There is a healing left hip incision which is without erythema crepitance or fluctuance. There is some erythema to the buttocks area. Neuro: Arousable, speech content is poor and inconsistent- occasionally is direct and understandable. He does have some hand motion which resulting in him pulling out his IV. He is having some worsening contractures to his right lower extremity - Labs CBC & Chem 7: 06/03/17 05:54 06/03/17 05:54 Labs: Abnormal Lab Results - Last 24 Hours (Table) 06/03/17 06/03/17 Range/Units 05:54 05:54 WBC 18.1 H (3.8-10.6) k/uL RBC 2.94 L (4.30-5.90) m/uL Hgb 8.9 L (13.0-17.5) gm/dL Hct 28.7 L (39.0-53.0) % MCHC 30.9 L (31.0-37.0) g/dL RDW 16.1 H (11.5-15.5) % Plt Count 732 H (150-450) k/uL Neutrophils # 14.9 H (1.3-7.7) k/uL Sodium 135 L (137-145) mmol/L BUN 37 H (9-20) mg/dL Glucose 118 H (74-99) mg/dL Calcium 7.9 L (8.4-10.2) mg/dL Laboratory Results WBC 18.1 k/uL (3.8-10.6) H 06/03/17 05:54 RBC 2.94 m/uL (4.30-5.90) L 06/03/17 05:54 Hgb 8.9 gm/dL (13.0-17.5) L 06/03/17 05:54 Hct 28.7 % (39.0-53.0) L 06/03/17 05:54 MCV 97.5 fL (80.0-100.0) 06/03/17 05:54 MCH 30.1 pg (25.0-35.0) 06/03/17 05:54 MCHC 30.9 g/dL (31.0-37.0) L 06/03/17 05:54 RDW 16.1 % (11.5-15.5) H 06/03/17 05:54 Plt Count 732 k/uL (150-450) H 06/03/17 05:54 Neutrophils % 82 % 06/03/17 05:54 Neutrophils % (Manual) 88 % 05/24/17 04:50 Lymphocytes % 7 % 06/03/17 05:54 Lymphocytes % (Manual) 6 % 05/24/17 04:50 Monocytes % 5 % 06/03/17 05:54 Monocytes % (Manual) 4 % 05/24/17 04:50 Eosinophils % 3 % 06/03/17 05:54 Eosinophils % (Manual) 2 % 05/24/17 04:50 Basophils % 1 % 06/03/17 05:54 Neutrophils # 14.9 k/uL (1.3-7.7) H 06/03/17 05:54 Neutrophils # (Manual) 20.68 k/uL (1.3-7.7) H 05/24/17 04:50 Lymphocytes # 1.4 k/uL (1.0-4.8) 06/03/17 05:54 Lymphocytes # (Manual) 1.41 k/uL (1.0-4.8) 05/24/17 04:50 Monocytes # 1.0 k/uL (0-1.0) 06/03/17 05:54 Monocytes # (Manual) 0.94 k/uL (0-1.0) 05/24/17 04:50 Eosinophils # 0.6 k/uL (0-0.7) 06/03/17 05:54 Eosinophils # (Manual) 0.47 k/uL (0-0.7) 05/24/17 04:50 Basophils # 0.1 k/uL (0-0.2) 06/03/17 05:54 Nucleated RBCs 1 /100 WBC (0-0) H 05/24/17 04:50 Manual Slide Review Performed 05/24/17 04:50 Polychromasia Present 05/24/17 04:50 Hypochromasia Moderate 06/03/17 05:54 Poikilocytosis Slight 05/29/17 05:24 Anisocytosis Slight 06/03/17 05:54 Macrocytosis Slight 06/03/17 05:54 PT 11.9 sec (9.0-12.0) 05/19/17 15:46 INR 1.2 (<1.2) H 05/19/17 15:46 APTT 27.9 sec (22.0-30.0) 05/19/17 15:46 VBG pH 7.33 (7.31-7.41) 05/31/17 17:17 VBG pCO2 44 mmHg (37-51) 05/31/17 17:17 VBG HCO3 22 mmol/L (24-28) L 05/31/17 17:17 Sodium 135 mmol/L (137-145) L 06/03/17 05:54 Potassium 4.5 mmol/L (3.5-5.1) 06/03/17 05:54 Chloride 107 mmol/L (98-107) 06/03/17 05:54 Carbon Dioxide 22 mmol/L (22-30) 06/03/17 05:54 Anion Gap 6 mmol/L 06/03/17 05:54 BUN 37 mg/dL (9-20) H 06/03/17 05:54 Creatinine 0.90 mg/dL (0.66-1.25) 06/03/17 05:54 Est GFR (MDRD) Af Amer >60 (>60 ml/min/1.73 sqM) 06/03/17 05:54 Est GFR (MDRD) Non-Af >60 (>60 ml/min/1.73 sqM) 06/03/17 05:54 Glucose 118 mg/dL (74-99) H 06/03/17 05:54 POC Glucose (mg/dL) 130 mg/dL (75-99) H 05/25/17 08:03 POC Glu [employer] ID García Pulido A 05/25/17 08:03 Lactic Ac Sepsis Rflx Y 05/19/17 16:27 Plasma Lactic Acid Froy 1.7 mmol/L (0.7-2.0) 05/19/17 19:46 Calcium 7.9 mg/dL (8.4-10.2) L 06/03/17 05:54 Phosphorus 2.0 mg/dL (2.5-4.5) L 05/26/17 04:40 Magnesium 2.2 mg/dL (1.6-2.3) 05/26/17 04:40 Total Bilirubin 0.2 mg/dL (0.2-1.3) 06/02/17 14:44 AST 47 U/L (17-59) 06/02/17 14:44 ALT 40 U/L (21-72) 06/02/17 14:44 Alkaline Phosphatase 112 U/L (38-126) 06/02/17 14:44 Total Creatine Kinase 83 U/L (55-170) 05/20/17 04:16 CK-MB (CK-2) 1.9 ng/mL (0.0-2.4) 05/20/17 04:16 CK-MB (CK-2) Rel Index 2.3 05/20/17 04:16 Troponin I 0.031 ng/mL (0.000-0.034) 05/20/17 04:16 Total Protein 4.5 g/dL (6.3-8.2) L 06/02/17 14:44 Albumin 1.8 g/dL (3.5-5.0) L 06/02/17 14:44 Cortisol 24 ug/dL 05/19/17 15:46 Urine Color Yellow 05/19/17 17:05 Urine Appearance Cloudy (Clear) 05/19/17 17:05 Urine pH 5.5 (5.0-8.0) 05/19/17 17:05 Ur Specific [place] 1.015 (1.001-1.035) 05/19/17 17:05 Urine Protein 1+ (Negative) H 05/19/17 17:05 Urine Glucose (UA) Negative (Negative) 05/19/17 17:05 Urine Ketones Negative (Negative) 05/19/17 17:05 Urine Blood Small (Negative) H 05/19/17 17:05 Urine Nitrite Negative (Negative) 05/19/17 17:05 Urine Bilirubin Negative (Negative) 05/19/17 17:05 Urine Urobilinogen 3.0 mg/dL (<2.0) 05/19/17 17:05 Ur Leukocyte Esterase Large (Negative) H 05/19/17 17:05 Urine RBC 35 /hpf (0-5) H 05/19/17 17:05 Urine WBC 179 /hpf (0-5) H 05/19/17 17:05 Urine WBC Clumps Few /hpf (None) H 05/02/17 19:18 Urine Bacteria Rare /hpf (None) H 05/19/17 17:05 Hyaline Casts 3 /lpf (0-2) H 05/19/17 17:05 Urine Mucus Rare /hpf (None) H 05/19/17 17:05 Urine Yeast (Budding) Occasional /hpf (None) H 05/19/17 17:05 Stool Occult Blood Positive (Negative) 05/21/17 09:30 C. difficile (EIA) Intrp Negative (Negative) 05/03/17 15:54 Blood Type O Positive 05/21/17 15:25 Blood Type Recheck No 05/21/17 15:25 Antibody Screen NEGATIVE 05/21/17 15:25 Crossmatch See Detail 05/21/17 15:25 Spec Expiration Date 05/24/2017 - 8782 05/21/17 15:25 Microbiology 05/26/17 18:26 Blood Blood Culture - Final No Growth after 144 hours 05/19/17 19:46 Blood Blood Culture - Final No Growth after 144 hours 05/19/17 18:30 Blood Blood Culture - Final No Growth after 144 hours 05/19/17 17:05 Urine,Catheterized Urine Culture - Final 05/04/17 23:29 Blood Blood Culture - Final No Growth after 144 hours 05/03/17 17:57 Blood Blood Culture - Final No Growth after 144 hours 05/03/17 03:00 Urine,Catheterized Urine Culture - Final Escherichia coli Assessment and Plan (1) Gram-negative sepsis with organ dysfunction Narrative/Plan: 82-year-old male transferred from extended care facility for alteration of his status. We'll request performed there was evidence of leukocytosis, acute renal failure, hyperkalemia. With this he was transferred to Hospital and is now received intervention and has been seen by nephrology. Because of his illness computed tomography scan of the abdomen and pelvis was performed showing evidence of the significant cecal dilatation and concerns to infection and abscess at that site. The patient has been seen by surgery and will plan colonoscopy when he is medically cleared. At the time of the consult fluid bolus was given since his computed tomography scan did not show evidence of heart failure. Antipyretics were given. The patient defervesced and his significant tachycardia and hypotension resolved. The patient has remained on selective care. His CODE STATUS is full, and apparently this has been addressed with the family and they do not yet understand the current ramifications of his illness. Ongoing discussion shall be held for more appropriate CODE STATUS. He has had a significant leukocytosis which is persistant. There is evidence of urine culture with E. coli. His fever has resolved. Antibiotic therapy with Zosyn was initiated with concerns to the abdominal sepsis. We will also give coverage for his urinary tract infection based on prior cultures. He does have some crustiness to his eyes and Polysporin was given with improvement. His legs are wrapped continue the ulcer on the dorsum of the right foot. Local wound care as changed to medical Honey to try to debrided this better. Continue to wrap the legs. The dressing changes can be performed every other day. Assessment followed by surgery. Will need outpatient endoscopic evaluation if possible. There is been a significant leukocytosis minimal improvement. The patient had had adequate treatment for his urinary infection but was still receiving some antibiotic therapy for the abdominal infection. The conversion to oral therapy was noteffective His leukocytosis has improved with current interventions. Concern that leukocytosis is dropping due to worsening sepsis and the patient continues to decline. There is concerns to an aspiration event in the ertapenem should give us coverage also. DO NOT RESUSCITATE status has now been accomplished. Plan to complete antibiotics in a week, but still has leukocytosis. It is related the family has declined hospice. However the primary care physician we'll again address this with the family tomorrow. The patient is simply failing to thrive, developing contractures, not resolving his leukocytosis and having a general significant worsening of his status. Hospice would be a prudent and comforting course. The follow-up computed tomography scan is performed. The prior cecal abscess appears to have resolved. He has profound protein calorie malnutrition as well as ongoing recovery from his sepsis. Current antibiotic therapy is ertapenem and this will continue as above. Case is discussed with the daughter in her significant other. Also with the nurse. Status: Acute (2) Acute renal failure Status: Acute (3) Hyperkalemia Status: Acute (4) UTI (urinary tract infection) Status: Acute
[2017-06-04] MEDS: SODIUM CHLORIDE 0.45% 1,000 ML IV SCH (02:57)
[2017-06-04 06:48] LABS: Anisocytosis Slight; Basophils # (A) 0.1 k/uL (0-0.2); Basophils % (A) 1 %; CH 29.7; CHCM 29.9; Eosinophils # (A) 0.2 k/uL (0-0.7); Eosinophils % (A) 1 %; HDW 3.06; HGB 7.8 gm/dL (13.0-17.5); Hypochromasia Marked; Luc # (Auto) 0.31; Luc % (Auto) 2; Lymphocytes # (A) 1.3 k/uL (1.0-4.8); Lymphocytes % (A) 8 %; MCH 29.9 pg (25.0-35.0); MCHC 29.9 g/dL (31.0-37.0); MCV 100.1 fL (80.0-100.0); Macrocytosis Slight; Mean Platelet Volume 8.4; Monocytes # (A) 0.9 k/uL (0-1.0); Monocytes % (A) 5 %; Neutrophils # (A) 13.4 k/uL (1.3-7.7); Neutrophils % (A) 83 %; RDW 16.2 % (11.5-15.5); WBC 16.2 k/uL (3.8-10.6); WBC (Perox) 17.06
[2017-06-04 07:05] LABS: Anion Gap 7 mmol/L; Blood Urea Nitrogen 42 mg/dL (9-20); Calcium 7.7 mg/dL (8.4-10.2); Carbon Dioxide 19 mmol/L (22-30); Chloride 112 mmol/L (98-107); Glucose 112 mg/dL (74-99); Non-African American GFR(MDRD) >60 (>60 ml/min/1.73 sqM); Potassium 4.4 mmol/L (3.5-5.1); Sodium 138 mmol/L (137-145)
[2017-06-04] MEDS: BUDESONIDE 0.5 MG/2 ML NEBU INHALATION SCH (08:49)
[2017-06-04] MEDS: IPRATROPIUM-ALBUTEROL 3 ML NEB INHALATION SCH ×2 (08:49→13:48)
[2017-06-04] MEDS: ENOXAPARIN 40 MG/0.4 ML SYRINGE SQ SCH (09:32)
[2017-06-04] MEDS: PANTOPRAZOLE 40 MG/10 ML VIAL IVP SCH (09:32)
[2017-06-04] MEDS: ERTAPENEM 1 GM in SODIUM CHLORIDE 0.9% 50 ML IVPB SCH (09:32)
[2017-06-04] MEDS: SUCRALFATE 1 GM TAB PO SCH ×3 (10:18→17:41)
[2017-06-04] MEDS: METOPROLOL TARTRATE 50 MG TAB PO SCH ×2 (10:18→17:40)
[2017-06-04] MEDS: LORATADINE 10 MG TAB PO SCH (10:18)
[2017-06-04] MEDS: BACITRACIN/POLYMYX 500-10,000 UNIT/GM OPHTH OINT 3.5 GM TUBE BOTH EYES SCH ×3 (10:19→18:30)
[2017-06-04] MEDS: AMMONIUM LACTATE 12% LOTION 225 GM BTL TOPICAL SCH (10:19)
[2017-06-04] MEDS: DIAZEPAM 5 MG TAB PO PRN (12:16)
[2017-06-04 14:38] VITALS: BP 89/62; PULSE 92; RESP 20; TEMP 99.7
--- NOTE | 2017-06-04 16:01 | P.PN ---
Subjective Principal diagnosis: Patient seen and evaluated exam and clinically patient is doing well in terms of breathing is still issues associated with swallowing dysfunction is present patient has been found ESBL E. coli UTI antibiotics are adjusted by the infectious disease services hemodynamic status stable 05/08/17- This is an 82-year-old male patient who came into the emergency department on 05/02/2017 from an extended care facility. Patient was noted to have a potassium of 6.4 at the extended care facility and therefore they sent him over. The patient did not have any further complaints and he has intermittent confusion which is his baseline. EKG performed in the emergency room did show sinus rhythm with occasional PVCs, patient had no ST segment elevation or depression or T-wave abnormalities. The patient was put on lactulose. Hypertension is also being worked up for possible rectal mass and will undergo colonoscopy when stable with Dr. Piña. All labs and reports have been reviewed. Patient is being seen and examined today on the sixth floor for pulmonary services related to progression of shortness of breath over the last few days. He has had a cough however denies any congestion. Nursing staff has denied any sputum production. He is alert and oriented 1 with intermittent confusion. Has been afebrile. Currently is on 3 L of supplemental oxygen via nasal cannula. It is unclear if the patient utilized oxygen in the extended care facility setting. Patient is also on a mechanical soft diet with aspiration precautions. 05/09/17- this patient is being evaluated and examined and seen on rounds today. All labs and reports were reviewed. The patient hyperkalemia has improved. The white blood cell count has come down to 12.8. Patient was noted to have increased lethargy and decreased cognition yesterday afternoon therefore a neurology consult was initiated. Patient is going for a CT of the brain as well as an EEG today. Patient's speech is noted to be slightly slurred and mumbled. Overnight he was noted to refuse care, had increase in agitation, and was refusing food and fluids. and primary care were updated. 05/10/17- this patient is being evaluated exam and seen today on the selective care unit. All labs and reports have been reviewed. Patient appears more awake today than previously. Patient did undergo a CT of the brain and EEG yesterday. Neurology and nephrology is on consult. Patient's prognosis is guarded and he has multiple comorbidities. Upon examination the patient's resting up in bed on room air states he occasionally has shortness of breath with exertion. He denies any cough or congestion at this time. Discharge planning is in process and appears the patient will go back to extended care facility when discharged. 05/11/17- patient is being seen in evaluated and examined today on the fifth floor. Patient is known to be slightly tired however is easily awoken. Currently he is resting up in bed on room air. Patient noticed to have a faint light red flat erythema rash to his right lateral chest. He denies any itching or pain. The area is small and diffuse. We will continue to monitor this. He does have Lotrisone cream for the area. On examination he denies any shortness of breath cough or congestion. Family at bedside updated on plan of care. 05/12/17- patient is being seen examined and evaluated today on the floor. The patient continues to be tired however is easily aroused upon examination. No further progression is noted of his rash to the right lateral chest. On examination patient's resting up in bed on room air. Shortness of breath as noted with exertion. Intermittent cough. He is afebrile, no overnight events. 05/13/17- patient is being seen examined and evaluated today on the floor. On examination the patient is resting in bed on room air, continues with shortness of breath on exertion. According to the nursing staff during breakfast the patient was coughing and choking and has dysphagia diet. Continue swallow evaluation with speech therapy has been ordered. 05/08/17- This is an 82-year-old male patient who came into the emergency department on 05/02/2017 from an extended care facility. Patient was noted to have a potassium of 6.4 at the extended care facility and therefore they sent him over. The patient did not have any further complaints and he has intermittent confusion which is his baseline. EKG performed in the emergency room did show sinus rhythm with occasional PVCs, patient had no ST segment elevation or depression or T-wave abnormalities. The patient was put on lactulose. Hypertension is also being worked up for possible rectal mass and will undergo colonoscopy when stable with Dr. Piña. All labs and reports have been reviewed. Patient is being seen and examined today on the sixth floor for pulmonary services related to progression of shortness of breath over the last few days. He has had a cough however denies any congestion. Nursing staff has denied any sputum production. He is alert and oriented 1 with intermittent confusion. Has been afebrile. Currently is on 3 L of supplemental oxygen via nasal cannula. It is unclear if the patient utilized oxygen in the extended care facility setting. Patient is also on a mechanical soft diet with aspiration precautions. 05/09/17- this patient is being evaluated and examined and seen on rounds today. All labs and reports were reviewed. The patient hyperkalemia has improved. The white blood cell count has come down to 12.8. Patient was noted to have increased lethargy and decreased cognition yesterday afternoon therefore a neurology consult was initiated. Patient is going for a CT of the brain as well as an EEG today. Patient's speech is noted to be slightly slurred and mumbled. Overnight he was noted to refuse care, had increase in agitation, and was refusing food and fluids. and primary care were updated. 05/10/17- this patient is being evaluated exam and seen today on the selective care unit. All labs and reports have been reviewed. Patient appears more awake today than previously. Patient did undergo a CT of the brain and EEG yesterday. Neurology and nephrology is on consult. Patient's prognosis is guarded and he has multiple comorbidities. Upon examination the patient's resting up in bed on room air states he occasionally has shortness of breath with exertion. He denies any cough or congestion at this time. Discharge planning is in process and appears the patient will go back to extended care facility when discharged. 05/11/17- patient is being seen in evaluated and examined today on the fifth floor. Patient is known to be slightly tired however is easily awoken. Currently he is resting up in bed on room air. Patient noticed to have a faint light red flat erythema rash to his right lateral chest. He denies any itching or pain. The area is small and diffuse. We will continue to monitor this. He does have Lotrisone cream for the area. On examination he denies any shortness of breath cough or congestion. Family at bedside updated on plan of care. 05/12/17- patient is being seen examined and evaluated today on the floor. The patient continues to be tired however is easily aroused upon examination. No further progression is noted of his rash to the right lateral chest. On examination patient's resting up in bed on room air. Shortness of breath as noted with exertion. Intermittent cough. He is afebrile, no overnight events. 05/13/17- patient is being seen examined and evaluated today on the floor. On examination the patient is resting in bed on room air, continues with shortness of breath on exertion. According to the nursing staff during breakfast the patient was coughing and choking and has dysphagia diet. Continue swallow evaluation with speech therapy has been ordered. 05/14/17-05/19/[address] Valverde's dictations 05/20/17- patient is being seen examined and evaluated today in the intensive care unit. Currently the patient is resting up in bed on 2 L of supplemental oxygen via nasal cannula. Patient continues to be tachycardic and oxygen dependent. Patient did undergo a procedure for PEG tube and is currently tolerating tube feeds. Chest x-ray has been reviewed from this morning and does show a correlation for CHF, underlying pneumonia not excluded. Upon examination the patient's vasopressors are on hold. We are trying to wean the patient off of pressors at this time. 05/21/17- patient is being seen examined and evaluated today in the intensive care unit. Patient has been noted to have significant tachycardia with episodes of hypotension, he was noted to have increased bowel movements that were loose and dark. Occult blood was sent to lab and came back positive. The patient had FMF in place. Surgical has been updated. Hemoglobin noted to drop from 8.6 this morning now down to 7.3. Orders given for 2 units of packed red blood cells as well as consult interventional radiology for PICC line insertion. chest x-ray from this afternoon revealed improved variation in both lung bases. 05/22/17- patient seen and examined in the ICU remains hypertensive but intermittent continue to have episodes of tachycardia the beta blockers are being used cautiously currently patient heart rate is about 150-160 and appears to be sinus tachycardia Cardizem drip is not working so is being discontinued patient is on IV Lopressor has been on by mouth Lopressor as well he has been transfused with packed RBC indexes of bleeding that has been seen overnight has appears to settle down patient slightly more awake now family is present at bedside care plan discussed with them the advice to proceed with a DO NOT RESUSCITATE CODE STATUS, patient is status post PICC line placement 05/23/17- patient is being seen examined and evaluated today in the intensive care unit. Patient has received a total of 4 units of packed red blood cells. Hemoglobin is noted to drop from 11.8 to 9.4 today. Surgery is also on consult , however he has a high risk candidate. His fecal management system is in place and the stools look less maroon today than previous. He continues to have intermittent confusion. His sodium was noted to be 155 today, as well as a chloride of 129. We have increased his free water flushes via PEG tube to 250 ML's every 6. Upon examination the patient's resting up in bed on 3 L of supplemental oxygen via nasal cannula. He continues to have a dry cough. Currently he is afebrile, no further complaints. 05/24/17-05/27/17- See Dr. Austin note, as he was on for coverage 05/28/17- see Dr. Valverde's progress note 05/29/17- patient is seen examined and evaluated today on the selective care unit. Patient continues to be nonverbal and noncommunicative with intermittent anxiety and confusion. Patient has failed to show any significant improvement, he remains very debilitated, no evidence of any active bleeding is present. Patient has been downgraded to the medical surgical unit. Due to the patient's poor prognosis it has been suggested the patient should be evaluated for hospice , will defer to primary service in that regard. Agent has been receiving nutrition via PEG tube and has been tolerating that well. He continues to have Granados catheter as well as fecal management system. No further bleeding has been noted. 05/30/17- patient is seen examined and evaluated today on rounds. Patient has not shown any signs of improvement, in fact he continues to slowly decline. His prognosis is highly guarded in becoming poor. Hospice was brought up as an option to the however she declined wanting any such services at this time. She wants to continue with treatment. Patient's would like him to go to an extended care facility for further treatment. Patient is a DO NOT RESUSCITATE at this time. Patient continues on 3 L of supplemental oxygen via nasal cannula. He continues to be short of breath with any exertion or activity. Does have a chronic cough. Cough is ineffective in bringing up any secretions. Patient does have PEG tube and is receiving nutrition without any significant residual volumes. Labs and reports for reviewed. 05/31/17- she has seen examined and evaluated today on rounds. Patient currently resting in bed on 3 L of supplemental oxygen via nasal cannula. His shortness of breath continues and is unchanged. The chronic cough as well as ineffective cough also unchanged. Patient is receiving nutritional support via PEG tube without any significant residual volumes. Discharge planning is in place to possibly ECF in the near future. He is afebrile, no overnight events. All labs and reports been reviewed. 06/01/17- patient is being seen, examined and evaluated today on rounds. Patient appartently pulled IVs out last night and nurses are unable to gain access at this time. Patient may need to go for a PICC line insertion if the current medications are unable to be switched over to oral agents that could go through the PEG tube. ID currently manageing antibiotics, will defer to them if the patient will require a new PICC insertion or not. The patient remains confused and short of breath with exertions. Utilizing 3L of supplemental oxygen. He is tolerating tube feedings. afebrile. All labs and reports reviewed. 06/02/17- he has seen examined and evaluated today on rounds. Patient currently resting in bed on 3 L of supplemental oxygen via nasal cannula. His shortness of breath continues and is unchanged. The chronic cough as well as ineffective cough also unchanged. Patient is receiving nutritional support via PEG tube without any significant residual volumes. Discharge planning is in place to possibly ECF in the near future. He is afebrile, no overnight events. All labs and reports been reviewed. nursing staff was able to get a peripheral IV access. 06/03/17- patient is being seen examined and evaluated today on rounds. Patient continues to be on 3L supplemental oxygen via nasal cannula. He has remained relatively unchanged. Continues with nutritional support via PEG tube. The patient's prognosis is poor and guarded. Apparently there is a family meeting to take place tomorrow morning with primary services. They will be discussing possible palliative/hospice care and we agree with this recommendation. 06/04/2017, patient seen and evaluated examined during the rounds he is awake but not fully oriented and feels intermittently fidgety family is present at bedside he does not appear to be in pain family has requested comfort measures and hospice currently patient is being converted to hospice Objective - Vital Signs Vital signs: Vital Signs Temp 99.7 F H 09/12/17 11:20 Pulse 92 06/04/17 11:20 Resp 20 06/04/17 11:20 BP 89/62 06/04/17 11:20 Pulse Ox 100 06/04/17 11:20 Intake & Output 06/03/17 06/04/17 06/04/17 18:59 06:59 18:59 Intake Total 780 325 65 Output Total 800 900 Balance -20 -575 65 Weight 78.9 kg 78 kg Intake: Oral 0 0 0 Tube Feeding 780 325 65 Output: Urine 800 500 Uretheral (Granados) 300 Stool 400 Other: Voiding Method Indwelling Catheter Indwelling Catheter Indwelling Catheter - Exam GENERAL EXAM: Alert, confusion noted which is baseline, comfortable in no apparent distress. HEAD: Normocephalic. EYES: Normal reaction of pupils, equal size. NOSE: Clear with pink turbinates. THROAT: No erythema or exudates. NECK: No masses, no JVD. CHEST: No chest wall deformity. LUNGS: Equal air entry with no crackles, wheeze, rhonchi or dullness. Breath sounds decreased bilaterally. CVS: S1 and S2 normal with no audible mumurs, regular rhythm. ABDOMEN: No hepatosplenomegaly, normal bowel sounds, no guarding or rigidity. PEG tube in place clean dry and intact, FMS in place EXTREMITIES: +2 edema noted, pedal pulses palpable. Chronic skin changes noted , bilateral legs wrapped SKIN: Multiple skin tears, flat erythema diffuse rash to right lateral chest, cream applied CENTRAL NERVOUS SYSTEM: No focal deficits, moves all 4 extremities. - Labs CBC & Chem 7: 06/04/17 06:15 06/04/17 06:15 Labs: Abnormal Lab Results - Last 24 Hours (Table) 06/04/17 06/04/17 Range/Units 06:15 06:15 WBC 16.2 H (3.8-10.6) k/uL RBC 2.60 L (4.30-5.90) m/uL Hgb 7.8 L (13.0-17.5) gm/dL Hct 26.0 L (39.0-53.0) % MCV 100.1 H (80.0-100.0) fL MCHC 29.9 L (31.0-37.0) g/dL RDW 16.2 H (11.5-15.5) % Plt Count 577 H (150-450) k/uL Neutrophils # 13.4 H (1.3-7.7) k/uL Chloride 112 H (98-107) mmol/L Carbon Dioxide 19 L (22-30) mmol/L BUN 42 H (9-20) mg/dL Glucose 112 H (74-99) mg/dL Calcium 7.7 L (8.4-10.2) mg/dL Assessment and Plan Plan: Assessment Supraventricular tachycardia likely related to the intravascular water depletion dehydration and acute blood loss anemia with ongoing intermittent GI loss Recurrent intermittent aspiration with episodes of silent aspiration patient is status post PEG tube placement Urinary tract infection, culture positive for gram negatives bacilli and E. coli , which appears to be ESBL, IVS adjust antibiotics Sepsis with fever, gram-negative Acute hypoxic respiratory failure Hyperkalemia, improved Acute renal failure Urinary tract infection, culture positive for gram negatives bacilli and E. coli Hypernatremia likely related to decreased oral intake Probable rectal mass, currently being worked up Diarrhea History of CVA Hypotension Plan Family meeting findings reviewed with the family and patient. All labs and reports have been reviewed Medications have been reviewed and will be continued as ordered. Patient's prognosis is guarded. Patient known to be resistive to care and medical treatment. Continue to monitor electrolytes. Patient will undergo colonoscopy once cleared, in the outpatient setting. Continue with pulmonary hygiene, coughing and deep breathing exercises, and supportive care. Supplemental oxygen to maintain oxygen saturations of 92% or better. Continue nebulizer treatments in the form of DuoNeb and budesonide. . GI and DVT prophylaxis. Appreciate consults recommendations. Patient is currently being worked up for discharge planning to extended care facility. We will continue to monitor labs/results and adjust treatment as necessary. Further recommendations pending Patient is currently now enrolled with hospice we'll monitor and observe with cancer the PICC line placement continue supportive care with predominantly pain management and Discomfort management will be available as needed her eyes Time with Patient: Greater than 30
--- NOTE | 2017-06-04 18:21 | P.PN ---
Subjective Principal diagnosis: sepsis 82-year-old male resident of [facility] was found evidence of multiple abnormal labs included acute renal failure and hyperkalemia. The patient was transferred from the [facility] [place] for further intervention. Infectious diseases consultation was requested when the patient developed a high-grade fever reportedly over 104. the consult was initiated as the patient became febrile, hypotensive and tachycardic. The patient is a poor historian. The patient today is a bit more comfortable than reported last evening. He relates that he has minimal hunger. His mouth is dry. As related lactic acid was drawn which was elevated and had evidence of leukocytosis, the patient was given fluids and antibiotic therapy with Zosyn given the concerns to urinary system as well as potential abdominal source since he was having some diarrhea. As the patient is slightly more comfortable. Has been seen by surgery and is being monitored for a potential colonoscopy in the future. Regarding ongoing treatment for the colonic abscess. No complaints except for fatigue.. As noted there is been the difficulty with his nutrition. Concerns of an aspiration event. PEG tube is been placed and is being utilized at this time under the supervision of surgery. Patient does answer occasionally to direct questioning The patient's daughter and significant other are present. There relates been a tough day. Discussion occurred with the primary team again talking about hospice which is certainly a viable option at this time. The family has had a meeting with Dr. Anderson today and now agree with Hospice care due to the progressive decline despite extensive medical therapy. Objective - Vital Signs Vital signs: Vital Signs Temp 99.7 F H 06/04/17 11:20 Pulse 92 06/04/17 11:20 Resp 20 06/04/17 11:20 BP 89/62 06/04/17 11:20 Pulse Ox 100 06/04/17 11:20 Intake & Output 06/03/17 06/04/17 06/04/17 18:59 06:59 18:59 Intake Total 780 325 65 Output Total 800 900 Balance 65 Weight 78.9 kg 78 kg Intake: Oral 0 0 0 Tube Feeding 780 325 65 Output: Urine 800 500 Uretheral (Gran[place]) 300 Stool 400 Other: Voiding Method Indwelling Catheter Indwelling Catheter Indwelling Catheter - Exam 82-year-old male poor historian HEENT: Anicteric conjunctiva are pink and mildly crusty nasal mucosa grossly intact without significant lesions, there is no thrush but the oral cavity is very dry Neck: The neck is supple with no nuchal rigidity, without significant lymphadenopathy or thyromegaly. Lungs: There is symmetrical air entry. Scattered wheezes and basilar crackles are noted. Heart: Irregular with soft S4 no distinct murmur click or rub Abdomen: Positive bowel sounds soft and nontender without palpable masses or organomegaly. There was no guarding or rebound. PEG tube site is intact without erythema or drainage Extremities: The extremities have some minimal trace edema in the upper extremities have multiple weeping areas. The lower extremities have evidence of the extensive skin lesion the bilateral lower extremities. There is a healing left hip incision which is without erythema crepitance or fluctuance. There is some erythema to the buttocks area. Neuro: Arousable, speech content is poor and inconsistent- occasionally is direct and understandable. He is having some worsening contractures to his right lower extremity - Labs CBC & Chem 7: 06/04/17 06:15 06/04/17 06:15 Labs: Abnormal Lab Results - Last 24 Hours (Table) 06/04/17 06/04/17 Range/Units 06:15 06:15 WBC 16.2 H (3.8-10.6) k/uL RBC 2.60 L (4.30-5.90) m/uL Hgb 7.8 L (13.0-17.5) gm/dL Hct 26.0 L (39.0-53.0) % MCV 100.1 H (80.0-100.0) fL MCHC 29.9 L (31.0-37.0) g/dL RDW 16.2 H (11.5-15.5) % Plt Count 577 H (150-450) k/uL Neutrophils # 13.4 H (1.3-7.7) k/uL Chloride 112 H (98-107) mmol/L Carbon Dioxide 19 L (22-30) mmol/L BUN 42 H (9-20) mg/dL Glucose 112 H (74-99) mg/dL Calcium 7.7 L (8.4-10.2) mg/dL Laboratory Results WBC 16.2 k/uL (3.8-10.6) H 06/04/17 06:15 RBC 2.60 m/uL (4.30-5.90) L 06/04/17 06:15 Hgb 7.8 gm/dL (13.0-17.5) L 06/04/17 06:15 Hct 26.0 % (39.0-53.0) L 06/04/17 06:15 MCV 100.1 fL (80.0-100.0) H 06/04/17 06:15 MCH 29.9 pg (25.0-35.0) 06/04/17 06:15 MCHC 29.9 g/dL (31.0-37.0) L 06/04/17 06:15 RDW 16.2 % (11.5-15.5) H 06/04/17 06:15 Plt Count 577 k/uL (150-450) H 06/04/17 06:15 Neutrophils % 83 % 06/04/17 06:15 Neutrophils % (Manual) 88 % 05/24/17 04:50 Lymphocytes % 8 % 06/04/17 06:15 Lymphocytes % (Manual) 6 % 05/24/17 04:50 Monocytes % 5 % 06/04/17 06:15 Monocytes % (Manual) 4 % 05/24/17 04:50 Eosinophils % 1 % 06/04/17 06:15 Eosinophils % (Manual) 2 % 05/24/17 04:50 Basophils % 1 % 06/04/17 06:15 Neutrophils # 13.4 k/uL (1.3-7.7) H 06/04/17 06:15 Neutrophils # (Manual) 20.68 k/uL (1.3-7.7) H 05/24/17 04:50 Lymphocytes # 1.3 k/uL (1.0-4.8) 06/04/17 06:15 Lymphocytes # (Manual) 1.41 k/uL (1.0-4.8) 05/24/17 04:50 Monocytes # 0.9 k/uL (0-1.0) 06/04/17 06:15 Monocytes # (Manual) 0.94 k/uL (0-1.0) 05/24/17 04:50 Eosinophils # 0.2 k/uL (0-0.7) 06/04/17 06:15 Eosinophils # (Manual) 0.47 k/uL (0-0.7) 05/24/17 04:50 Basophils # 0.1 k/uL (0-0.2) 06/04/17 06:15 Nucleated RBCs 1 /100 WBC (0-0) H 05/24/17 04:50 Manual Slide Review Performed 05/24/17 04:50 Polychromasia Present 05/24/17 04:50 Hypochromasia Marked 06/04/17 06:15 Poikilocytosis Slight 05/29/17 05:24 Anisocytosis Slight 06/04/17 06:15 Macrocytosis Slight 06/04/17 06:15 PT 11.9 sec (9.0-12.0) 05/19/17 15:46 INR 1.2 (<1.2) H 05/19/17 15:46 APTT 27.9 sec (22.0-30.0) 05/19/17 15:46 VBG pH 7.33 (7.31-7.41) 05/31/17 17:17 VBG pCO2 44 mmHg (37-51) 05/31/17 17:17 VBG HCO3 22 mmol/L (24-28) L 05/31/17 17:17 Sodium 138 mmol/L (137-145) 06/04/17 06:15 Potassium 4.4 mmol/L (3.5-5.1) 06/04/17 06:15 Chloride 112 mmol/L (98-107) H 06/04/17 06:15 Carbon Dioxide 19 mmol/L (22-30) L 06/04/17 06:15 Anion Gap 7 mmol/L 06/04/17 06:15 BUN 42 mg/dL (9-20) H 06/04/17 06:15 Creatinine 0.88 mg/dL (0.66-1.25) 06/04/17 06:15 Est GFR (MDRD) Af Amer >60 (>60 ml/min/1.73 sqM) 06/04/17 06:15 Est GFR (MDRD) Non-Af >60 (>60 ml/min/1.73 sqM) 06/04/17 06:15 Glucose 112 mg/dL (74-99) H 06/04/17 06:15 POC Glucose (mg/dL) 130 mg/dL (75-99) H 05/25/17 08:03 POC Glu Insulation Board Back Tender ID García Pulido A 05/25/17 08:03 Lactic Ac Sepsis Rflx Y 05/19/17 16:27 Plasma Lactic Acid Froy 1.7 mmol/L (0.7-2.0) 05/19/17 19:46 Calcium 7.7 mg/dL (8.4-10.2) L 06/04/17 06:15 Phosphorus 2.0 mg/dL (2.5-4.5) L 05/26/17 04:40 Magnesium 2.2 mg/dL (1.6-2.3) 05/26/17 04:40 Total Bilirubin 0.2 mg/dL (0.2-1.3) 06/02/17 14:44 AST 47 U/L (17-59) 06/02/17 14:44 ALT 40 U/L (21-72) 06/02/17 14:44 Alkaline Phosphatase 112 U/L (38-126) 06/02/17 14:44 Total Creatine Kinase 83 U/L (55-170) 05/20/17 04:16 CK-MB (CK-2) 1.9 ng/mL (0.0-2.4) 05/20/17 04:16 CK-MB (CK-2) Rel Index 2.3 05/20/17 04:16 Troponin I 0.031 ng/mL (0.000-0.034) 05/20/17 04:16 Total Protein 4.5 g/dL (6.3-8.2) L 06/02/17 14:44 Albumin 1.8 g/dL (3.5-5.0) L 06/02/17 14:44 Cortisol 24 ug/dL 05/19/17 15:46 Urine Color Yellow 05/19/17 17:05 Urine Appearance Cloudy (Clear) 05/19/17 17:05 Urine pH 5.5 (5.0-8.0) 05/19/17 17:05 Ur Specific [place] 1.015 (1.001-1.035) 05/19/17 17:05 Urine Protein 1+ (Negative) H 05/19/17 17:05 Urine Glucose (UA) Negative (Negative) 05/19/17 17:05 Urine Ketones Negative (Negative) 05/19/17 17:05 Urine Blood Small (Negative) H 05/19/17 17:05 Urine Nitrite Negative (Negative) 05/19/17 17:05 Urine Bilirubin Negative (Negative) 05/19/17 17:05 Urine Urobilinogen 3.0 mg/dL (<2.0) 05/19/17 17:05 Ur Leukocyte Esterase Large (Negative) H 05/19/17 17:05 Urine RBC 35 /hpf (0-5) H 05/19/17 17:05 Urine WBC 179 /hpf (0-5) H 05/19/17 17:05 Urine WBC Clumps Few /hpf (None) H 05/02/17 19:18 Urine Bacteria Rare /hpf (None) H 05/19/17 17:05 Hyaline Casts 3 /lpf (0-2) H 05/19/17 17:05 Urine Mucus Rare /hpf (None) H 05/19/17 17:05 Urine Yeast (Budding) Occasional /hpf (None) H 05/19/17 17:05 Stool Occult Blood Positive (Negative) 05/21/17 09:30 C. difficile (EIA) Intrp Negative (Negative) 05/03/17 15:54 Blood Type O Positive 05/21/17 15:25 Blood Type Recheck No 05/21/17 15:25 Antibody Screen NEGATIVE 05/21/17 15:25 Crossmatch See Detail 05/21/17 15:25 Spec Expiration Date 05/24/2017232405/21/17 15:25 Microbiology 05/26/17 18:26 Blood Blood Culture - Final No Growth after 144 hours 05/19/17 19:46 Blood Blood Culture - Final No Growth after 144 hours 05/19/17 18:30 Blood Blood Culture - Final No Growth after 144 hours 05/19/17 17:05 Urine,Catheterized Urine Culture - Final 05/04/17 23:29 Blood Blood Culture - Final No Growth after 144 hours 05/03/17 17:57 Blood Blood Culture - Final No Growth after 144 hours 05/03/17 03:00 Urine,Catheterized Urine Culture - Final Escherichia coli Assessment and Plan (1) Gram-negative sepsis with organ dysfunction Narrative/Plan: 82-year-old male transferred from extended care facility for alteration of his status. We'll request performed there was evidence of leukocytosis, acute renal failure, hyperkalemia. With this he was transferred to Hospital and is now received intervention and has been seen by nephrology. Because of his illness computed tomography scan of the abdomen and pelvis was performed showing evidence of the significant cecal dilatation and concerns to infection and abscess at that site. The patient has been seen by surgery and will plan colonoscopy when he is medically cleared. At the time of the consult fluid bolus was given since his computed tomography scan did not show evidence of heart failure. Antipyretics were given. The patient defervesced and his significant tachycardia and hypotension resolved. The patient has remained on selective care. His CODE STATUS is full, and apparently this has been addressed with the family and they do not yet understand the current ramifications of his illness. Ongoing discussion shall be held for more appropriate CODE STATUS. He has had a significant leukocytosis which is persistant. There is evidence of urine culture with E. coli. His fever has resolved. Antibiotic therapy with Zosyn was initiated with concerns to the abdominal sepsis. We will also give coverage for his urinary tract infection based on prior cultures. He does have some crustiness to his eyes and Polysporin was given with improvement. His legs are wrapped continue the ulcer on the dorsum of the right foot. Local wound care as changed to medical Honey to try to debrided this better. Continue to wrap the legs. The dressing changes can be performed every other day. Assessment followed by surgery. Will need outpatient endoscopic evaluation if possible. There is been a significant leukocytosis minimal improvement. The patient had had adequate treatment for his urinary infection but was still receiving some antibiotic therapy for the abdominal infection. The conversion to oral therapy was noteffective His leukocytosis has improved with current interventions. Concern that leukocytosis is dropping due to worsening sepsis and the patient continues to decline. There is concerns to an aspiration event in the ertapenem should give us coverage also. DO NOT RESUSCITATE status has now been accomplished. Plan to complete antibiotics in a week, but still has leukocytosis. It is related the family has declined hospice. However the primary care physician we'll again address this with the family tomorrow. The patient is simply failing to thrive, developing contractures, not resolving his leukocytosis and having a general significant worsening of his status. Hospice would be a prudent and comforting course. The follow-up computed tomography scan is performed. The prior cecal abscess appears to have resolved. He has profound protein calorie malnutrition as well as ongoing poor recovery from his sepsis. Family has now agreed to Hospice care, they are counselled about Hospice care and how it will provide pain and comfort. Status: Acute (2) Acute renal failure Status: Acute (3) Hyperkalemia Status: Acute (4) UTI (urinary tract infection) Status: Acute
--- NOTE | 2017-06-04 20:22 | P.DS ---
Providers Date of admission: 05/02/17 19:07 Attending physician: Bryson Anderson Consults: 05/02/17 19:07 Consult Physician Urgent Consulting Provider: Erin Villanueva Consult Reason/Comments: Acute renal failure Do you want consulting provider notified?: Yes 05/04/17 15:52 Consult Physician Urgent Consulting Provider: Nas Piña Consult Reason/Comments: ileus Do you want consulting provider notified?: Yes 05/04/17 23:00 Consult Physician Urgent Consulting Provider: Jesus Kenney Consult Reason/Comments: sepsis Do you want consulting provider notified?: Yes 05/05/17 17:21 Consult Physician Routine Consulting Provider: Ruy Muro Consult Reason/Comments: Sustained tachycardia 140's Do you want consulting provider notified?: Yes 05/08/17 07:57 Consult Physician Routine Consulting Provider: Prudencio Valverde Consult Reason/Comments: tachypnea respiratory distress Do you want consulting provider notified?: Yes 05/08/17 08:56 Consult Physician Urgent Consulting Provider: Teresa Baptiste Consult Reason/Comments: sudden mental decline Do you want consulting provider notified?: Yes 05/17/17 11:35 Consult Physician Routine Consulting Provider: Leyda Shin Consult Reason/Comments: Feeding tube Do you want consulting provider notified?: Yes 06/01/17 16:26 Consult Physician Urgent Consulting Provider: Prudencio Valverde Consult Reason/Comments: Central line placement Do you want consulting provider notified?: Yes Primary care physician: Bryson Anderson - Discharge Diagnosis(es) (1) Acute renal failure Status: Acute (2) Gram-negative sepsis with organ dysfunction Status: Acute (3) CVA (cerebral vascular accident) Status: Acute Hospital Course: This is discharge/transfer summary on an 82-year-old white male Center admitted for sepsis. 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 His postoperative antibiotics for several weeks and was slowly improving however, there was element of weakness. 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 He ended up having difficulty with nutrition and after much discussion, we ended up placing a PEG tube to see if he would return to some normalcy. However, due to his multiple comorbidities he has never retained appropriate consciousness. Neurology, pulmonology, infectious disease and surgery have been assisting. After long discussion with the family, is felt most Prudent would be to institute hospice measures . He will now be transferred. Plan - Discharge Summary New Discharge Prescriptions: No Action amLODIPine BESYLATE/BENAZEPRIL [Lotrel 5-20 mg Capsule] 1 cap PO DAILY@0900 Clopidogrel [Plavix] 75 mg PO DAILY@0900 Bisoprolol-Hctz 10-6.25 mg [Ziac 10-6.25 MG] 1 tab PO DAILY@0900 Ranitidine HCl [Zantac] 150 mg PO DAILY@0600 Diazepam [Valium] 2.5 mg PO Q8HR PRN #90 tab PRN Reason: Mild Spasms Clotrimazole/Betamethasone Dip [Lotrisone Cream] 1 applic TOPICAL BID Ammonium Lactate Lotion [Lac-Hydrin 12% Lotion] 1 applic TOPICAL BID HYDROcodone/APAP 10-325MG [[place] 10-325] 1 tab PO Q6H PRN PRN Reason: Pain Magnesium Hydroxide [Milk of Magnesia] 2,400 mg PO DAILY PRN PRN Reason: Constipation Lactose-Reduced Food [Ensure Plus] 120 ml PO AC-TID@ Potassium Chloride ER [K-Dur 20] 20 meq PO BID@0900,2100 Furosemide [Lasix] 40 mg PO BID@0900,2100 Enoxaparin [Lovenox] 40 mg SQ DAILY@0600 Triad Wound Paste 1 applic TOPICAL BID Sennosides-Docusate Sodium [Senokot-S] 2 tab PO HS@2100 Discharge Medication List Bisoprolol-Hctz 10-6.25 mg [Ziac 10-6.25 MG] 1 tab PO DAILY@0900 01/25/14 [ History] Clopidogrel [Plavix] 75 mg PO DAILY@0900 01/25/14 [History] amLODIPine BESYLATE/BENAZEPRIL [Lotrel 5-20 mg Capsule] 1 cap PO DAILY@0900 02/03 [History] Ranitidine HCl [Zantac] 150 mg PO DAILY@0600 04/05/17 [History] Diazepam [Valium] 2.5 mg PO Q8HR PRN #90 tab 04/16/17 [Rx] Ammonium Lactate Lotion [Lac-Hydrin 12% Lotion] 1 applic TOPICAL BID 05/02/17 [ History] Clotrimazole/Betamethasone Dip [Lotrisone Cream] 1 applic TOPICAL BID 05/02/17 [ History] Enoxaparin [Lovenox] 40 mg SQ DAILY@0600 05/02/17 [History] Furosemide [Lasix] 40 mg PO BID@00,209905/02/17 [History] HYDROcodone/APAP 10-325MG [[place] 10-325] 1 tab PO Q6H PRN 05/02/17 [History] Lactose-Reduced Food [Ensure Plus] 120 ml PO AC-TID@,,05/02/17 [History] Magnesium Hydroxide [Milk of Magnesia] 2,400 mg PO DAILY PRN 05/02/17 [History] Potassium Chloride ER [K-Dur 20] 20 meq PO BID@899,209905/02/17 [History] Sennosides-Docusate Sodium [Senokot-S] 2 tab PO HS@209905/02/17 [History] Triad Wound Paste 1 applic TOPICAL BID 05/02/17 [History] Follow up Appointment(s)/Referral(s): Bryson Anderson MD [Primary Care Provider] - 1-2 days Prudencio Valverde MD [STAFF PHYSICIAN] - 1 Week Discharge Disposition: DISCH TO HOSPICE [facility]
== END 2017-06-04 18:41 | disposition hospice, inpatient (51) | DRG 871 ==
LOC: EC 17:24 → 6SEL 19:07 → 5MS5E 05-10 21:25 → 5ONC 05-11 13:22 → 6ICU 05-19 17:15 → 6SEL 05-26 18:04 → 5MS5E 05-29 17:48 → 6SEL 06-01 17:23 → 4MS4W 06-04 11:04
PROVIDERS: ADMIT Family Medicine; ATTEND Family Medicine
PROC: 0DH63UZ Insertion of Feeding Device into Stomach, Percutaneous Approach (ICD-10-PCS; principal; 2017-05-18 12:00)
PROC: 0DJ08ZZ Inspection of Upper Intestinal Tract, Via Natural or Artificial Opening Endoscopic (ICD-10-PCS; 2017-05-18 12:00)
PROC: 02HV33Z Insertion of Infusion Device into Superior Vena Cava, Percutaneous Approach (ICD-10-PCS; 2017-05-22)
DX: A41.51 Sepsis due to Escherichia coli [E. coli] (principal); E43 Unspecified severe protein-calorie malnutrition; J96.01 Acute respiratory failure with hypoxia; N17.0 Acute kidney failure with tubular necrosis; G93.41 Metabolic encephalopathy; J18.9 Pneumonia, unspecified organism; I47.2 Ventricular tachycardia; K92.2 Gastrointestinal hemorrhage, unspecified; I13.0 Hypertensive heart and chronic kidney disease with heart failure and stage 1 through stage 4 chronic kidney disease, or unspecified chronic kidney disease; E87.2 Acidosis; E87.0 Hyperosmolality and hypernatremia; D62 Acute posthemorrhagic anemia; I47.1 Supraventricular tachycardia; E87.1 Hypo-osmolality and hyponatremia; K56.7 Ileus, unspecified; K57.80 Diverticulitis of intestine, part unspecified, with perforation and abscess without bleeding; N39.0 Urinary tract infection, site not specified; K26.9 Duodenal ulcer, unspecified as acute or chronic, without hemorrhage or perforation; I95.9 Hypotension, unspecified; N18.3 Chronic kidney disease, stage 3 (moderate); E11.22 Type 2 diabetes mellitus with diabetic chronic kidney disease; I48.91 Unspecified atrial fibrillation; E86.0 Dehydration; E11.621 Type 2 diabetes mellitus with foot ulcer; E78.5 Hyperlipidemia, unspecified; E87.5 Hyperkalemia; I50.9 Heart failure, unspecified; R13.10 Dysphagia, unspecified; L97.519 Non-pressure chronic ulcer of other part of right foot with unspecified severity; E87.6 Hypokalemia; F41.9 Anxiety disorder, unspecified; H91.90 Unspecified hearing loss, unspecified ear; I49.3 Ventricular premature depolarization; I69.320 Aphasia following cerebral infarction; K21.9 Gastro-esophageal reflux disease without esophagitis; K52.9 Noninfective gastroenteritis and colitis, unspecified; K80.20 Calculus of gallbladder without cholecystitis without obstruction; M10.9 Gout, unspecified; R62.7 Adult failure to thrive; R65.20 Severe sepsis without septic shock; M19.90 Unspecified osteoarthritis, unspecified site; M54.5 Low back pain; R21 Rash and other nonspecific skin eruption; R32 Unspecified urinary incontinence; T36.95XA Adverse effect of unspecified systemic antibiotic, initial encounter; T50.2X5A Adverse effect of carbonic-anhydrase inhibitors, benzothiadiazides and other diuretics, initial encounter; R33.9 Retention of urine, unspecified; Z16.12 Extended spectrum beta lactamase (ESBL) resistance; Z66 Do not resuscitate; Z74.01 Bed confinement status; Z79.02 Long term (current) use of antithrombotics/antiplatelets; Z79.899 Other long term (current) drug therapy; Z87.891 Personal history of nicotine dependence; Y92.9 Unspecified place or not applicable
CPT/HCPCS: 36415; 36569; 43239; 43246; 70450; 71010; 71020; 71250; 74022; 74176; 74230; 76937; 80048; 80053; 81001; 82272; 82533; 82550; 82553; 82803; 83605; 83735; 84100; 84132; 84484; 85025; 85027; 85610; 85730; 86850; 86900; 86901; 86920; 87040; 87077; 87086; 87186; 87324; 88305; 93005; 94640; 94760; 95819; 99285

== ENCOUNTER 2017-06-04 18:49 | Inpatient (IN) | payer OTHER ==
[2017-06-04 19:06] VITALS: BMI 26.1
[2017-06-04] MEDS ORDERED: ATROPINE OPHTH SOLN 1% 5ML BTL SUBLINGUAL PRN (19:28)
[2017-06-04] MEDS: LORazepam 1 MG TAB PO PRN (19:46)
[2017-06-04] MEDS: MORPHINE ORAL SOLN 20 MG/1 ML ORAL SYRINGE PO PRN (19:46)
[2017-06-05] MEDS: MORPHINE ORAL SOLN 20 MG/1 ML ORAL SYRINGE PO PRN ×2 (00:31→04:34)
[2017-06-05] MEDS: LORazepam 1 MG TAB PO PRN ×3 (00:31→08:56)
[2017-06-05 07:46] VITALS: BP 142/72; PULSE 127; RESP 20; TEMP 98.7
[2017-06-05] MEDS ORDERED: MORPHINE ORAL SOLN 20 MG/1 ML ORAL SYRINGE PO PRN (07:51)
--- NOTE | 2017-06-05 08:19 | P.DS ---
Providers Date of admission: 06/04/17 18:49 Attending physician: Bryson Anderson Primary care physician: Stated None Hospital Course: This is a discharge summary an 82-year-old white male centimeter for colonic abscess with UTI. The patient did quite poorly from a recovery standpoint in 2 weeks after his admission required PEG tube feeding. The patient stabilized with appropriate antibiotic therapy but was again able to wean off of IV antibiotics. His frailty required significant care including rectal to management. The patient because of his poor prognosis and previous CVA, had a prudent decision to transfer to hospice. He will transferred to [facility] with hospice in poor condition for comfort care. Patient Condition at Discharge: Poor Plan - Discharge Summary New Discharge Prescriptions: No Action amLODIPine BESYLATE/BENAZEPRIL [Lotrel 5-20 mg Capsule] 1 cap PO DAILY@0900 Clopidogrel [Plavix] 75 mg PO DAILY@0900 Bisoprolol-Hctz 10-6.25 mg [Ziac 10-6.25 MG] 1 tab PO DAILY@0900 Ranitidine HCl [Zantac] 150 mg PO DAILY@0600 Diazepam [Valium] 2.5 mg PO Q8HR PRN #90 tab PRN Reason: Mild Spasms Clotrimazole/Betamethasone Dip [Lotrisone Cream] 1 applic TOPICAL BID Ammonium Lactate Lotion [Lac-Hydrin 12% Lotion] 1 applic TOPICAL BID HYDROcodone/APAP 10-325MG [[place] 10-325] 1 tab PO Q6H PRN PRN Reason: Pain Magnesium Hydroxide [Milk of Magnesia] 2,400 mg PO DAILY PRN PRN Reason: Constipation Lactose-Reduced Food [Ensure Plus] 120 ml PO AC-TID@, Potassium Chloride ER [K-Dur 20] 20 meq PO BID@0900,2100 Furosemide [Lasix] 40 mg PO BID@0900,2100 Enoxaparin [Lovenox] 40 mg SQ DAILY@0600 Triad Wound Paste 1 applic TOPICAL BID Sennosides-Docusate Sodium [Senokot-S] 2 tab PO HS@2100 Discharge Medication List Bisoprolol-Hctz 10-6.25 mg [Ziac 10-6.25 MG] 1 tab PO DAILY@0900 01/25/14 [ History] Clopidogrel [Plavix] 75 mg PO DAILY@0900 01/25/14 [History] amLODIPine BESYLATE/BENAZEPRIL [Lotrel 5-20 mg Capsule] 1 cap PO DAILY@0900 02/03 [History] Ranitidine HCl [Zantac] 150 mg PO DAILY@59904/05/17 [History] Diazepam [Valium] 2.5 mg PO Q8HR PRN #90 tab 04/16/17 [Rx] Ammonium Lactate Lotion [Lac-Hydrin 12% Lotion] 1 applic TOPICAL BID 05/02/17 [ History] Clotrimazole/Betamethasone Dip [Lotrisone Cream] 1 applic TOPICAL BID 05/02/17 [ History] Enoxaparin [Lovenox] 40 mg SQ DAILY@59905/02/17 [History] Furosemide [Lasix] 40 mg PO BID@09,209905/02/17 [History] HYDROcodone/APAP 10-325MG [[place] 10-325] 1 tab PO Q6H PRN 05/02/17 [History] Lactose-Reduced Food [Ensure Plus] 120 ml PO AC-TID@,05/02/17 [History] Magnesium Hydroxide [Milk of Magnesia] 2,400 mg PO DAILY PRN 05/02/17 [History] Potassium Chloride ER [K-Dur 20] 20 meq PO BID@899,209905/02/17 [History] Sennosides-Docusate Sodium [Senokot-S] 2 tab PO HS@209905/02/17 [History] Triad Wound Paste 1 applic TOPICAL BID 05/02/17 [History] Discharge Disposition: DISCH TO HOSPICE [facility]
== END 2017-06-05 15:46 | disposition hospice, inpatient (51) | DRG 872 ==
LOC: 4MS4W 18:49
PROVIDERS: ADMIT Family Medicine; ATTEND Family Medicine
DX: A41.9 Sepsis, unspecified organism (principal); N17.9 Acute kidney failure, unspecified; K63.0 Abscess of intestine; N39.0 Urinary tract infection, site not specified; Z51.5 Encounter for palliative care; E87.5 Hyperkalemia; Z93.1 Gastrostomy status; R54 Age-related physical debility; Z66 Do not resuscitate; I10 Essential (primary) hypertension; M19.90 Unspecified osteoarthritis, unspecified site; K21.9 Gastro-esophageal reflux disease without esophagitis; Z86.73 Personal history of transient ischemic attack (TIA), and cerebral infarction without residual deficits; Z79.02 Long term (current) use of antithrombotics/antiplatelets; Z79.891 Long term (current) use of opiate analgesic; Z79.899 Other long term (current) drug therapy; Z82.3 Family history of stroke; R11.2 Nausea with vomiting, unspecified; R19.7 Diarrhea, unspecified